=== PATIENT | female | born 1940 | race Caucasian/White ===

== ENCOUNTER 2017-01-30 01:11 | Emergency (ER) | payer MEDICARE, BC ==
[~2017-01-30] VITALS: Ht 165.1 cm; Wt 67.1 kg
[~2017-01-30 01:11] MED LIST: ACET500T68 PO; ASPI-630 PO; CIPR500T PO; METR500T PO; MULT-658 PO; Metoprolol PO; [UNRECOGNIZED DRUG - OTHER] PO
[2017-01-30] MEDS ORDERED: fentaNYL PF VIAL 100 MCG/2 ML VIAL IV PRN (01:45)
[2017-01-30 02:04] LABS: BASO # 0.1 x10^3/uL (0.0-0.2); BASO % 1 % (0-3); EOS % 1 % (0-3); HEMATOCRIT 34.1 % (36.0-47.0); HEMOGLOBIN 11.4 g/dL (12.0-15.5); LYMPH # 3.3 x10^3/uL (1.0-4.8); LYMPH % 22 % (24-48); MEAN CORPUSCULAR HEMOGLOBIN 31 pg (25-35); MEAN CORPUSCULAR HGB CONC 33 g/dL (31-37); MEAN CORPUSCULAR VOLUME 92 fL (79-100); MONO % 6 % (0-9); NEUT % 70 % (31-73); PLATELET COUNT 300 x10^3/uL (140-400); RED BLOOD COUNT 3.73 x10^6/uL (3.50-5.40); RED CELL DISTRIBUTION WIDTH 12.7 % (11.5-14.5); WHITE BLOOD COUNT 14.9 x10^3/uL (4.0-11.0)
[2017-01-30 02:12] LABS: CALCIUM 9.6 mg/dL (8.5-10.1); CREATININE 1.4 mg/dL (0.6-1.0); GFR 36.4
[2017-01-30 02:18] LABS: ALBUMIN 3.6 g/dL (3.4-5.0); DIRECT BILIRUBIN 0.1 mg/dL (0.0-0.2); TOTAL BILIRUBIN 0.3 mg/dL (0.2-1.0); TOTAL PROTEIN 8.1 g/dL (6.4-8.2)
--- NOTE | 2017-01-30 02:32 | PHYS DOC ---
Past Medical History Past Medical History: Other Additional Past Medical Histor: mitral valve prolapse Past Surgical History: Other Additional Past Surgical Histo: BILAT EYE CYST Alcohol Use: None Drug Use: None Adult General Chief Complaint Chief Complaint: ABDOMINAL PAIN HPI HPI Patient is a 76 year old female who presents with bilateral lower abdominal pain gradually worsening over the past 2 days, constant, achy. States her symptoms are exactly like prior episode of diverticulitis. She denies fever or chills, nausea or vomiting, dysuria, hematuria, diarrhea, constipation, back pain. Denies pain with eating, dark or bloody stools. Review of Systems Review of Systems Constitutional: Denies fever or chills [] Eyes: Denies change in visual acuity, redness, or eye pain [] HENT: Denies nasal congestion or sore throat [] Respiratory: Denies cough or shortness of breath [] Cardiovascular: No additional information not addressed in HPI [] GI: Denies nausea, vomiting, bloody stools or diarrhea [] : Denies dysuria or hematuria [] Musculoskeletal: Denies back pain or joint pain [] Integument: Denies rash or skin lesions [] Neurologic: Denies headache, focal weakness or sensory changes [] Endocrine: Denies polyuria or polydipsia [] Current Medications Current Medications Current Medications Medications (Trade) Dose Ordered Sig/Ella Start Time Stop Time Status Last Admin Dose Admin Fentanyl Citrate (Fentanyl 2ml Vial) 25 mcg PRN Q15MIN PRN 01/30/17 01:45 01/30/17 04:07 DC Allergies Allergies Allergies Coded Allergies Type Severity Reaction Last Updated Verified No Known Drug Allergies 02/29/16 No Physical Exam Physical Exam Constitutional: Well developed, well nourished, no acute distress, non-toxic appearance. [] HENT: Normocephalic, atraumatic, bilateral external ears normal, oropharynx moist, nose normal. [] Eyes: PERRLA, EOMI. [] Neck: Normal range of motion, supple. [] Cardiovascular:Heart rate regular rhythm [] Lungs & Thorax: Bilateral breath sounds clear to auscultation [] Abdomen: Bowel sounds normal, soft, has mild bilateral lower abdominal tenderness, no guarding or rebound. [] Skin: Warm, dry, no erythema, no rash. [] Back: No tenderness, no CVA tenderness. [] Extremities: No tenderness, ROM intact, no edema. [] Neurologic: Alert and oriented X 3, normal motor function, normal sensory function, no focal deficits noted. [] Psychologic: Affect normal, judgement normal, mood normal. [] Current Patient Data Vital Signs Vital Signs Date Time Temp Pulse Resp B/P (MAP) Pulse Ox O2 Delivery O2 Flow Rate FiO2 01/30/17 04:04 87 20 142/63 (89) 98 01/30/17 03:12 Room Air 01/30/17 01:25 98.0 98.0 Lab Values Laboratory Tests Test 01/30/17 01:55 01/30/17 03:09 White Blood Count 14.9 x10^3/uL (4.0-11.0) H Red Blood Count 3.73 x10^6/uL (3.50-5.40) Hemoglobin 11.4 g/dL (12.0-15.5) L Hematocrit 34.1 % (36.0-47.0) L Mean Corpuscular Volume 92 fL (79-100) Mean Corpuscular Hemoglobin 31 pg (25-35) Mean Corpuscular Hemoglobin Concent 33 g/dL (31-37) Red Cell Distribution Width 12.7 % (11.5-14.5) Platelet Count 300 x10^3/uL (140-400) Neutrophils (%) (Auto) 70 % (31-73) Lymphocytes (%) (Auto) 22 % (24-48) L Monocytes (%) (Auto) 6 % (0-9) Eosinophils (%) (Auto) 1 % (0-3) Basophils (%) (Auto) 1 % (0-3) Neutrophils # (Auto) 10.4 x10^3uL (1.8-7.7) H Lymphocytes # (Auto) 3.3 x10^3/uL (1.0-4.8) Monocytes # (Auto) 0.9 x10^3/uL (0.0-1.1) Eosinophils # (Auto) 0.1 x10^3/uL (0.0-0.7) Basophils # (Auto) 0.1 x10^3/uL (0.0-0.2) Sodium Level 136 mmol/L (136-145) Potassium Level 4.0 mmol/L (3.5-5.1) Chloride Level 99 mmol/L (98-107) Carbon Dioxide Level 27 mmol/L (21-32) Anion Gap 10 (6-14) Blood Urea Nitrogen 27 mg/dL (7-20) H Creatinine 1.4 mg/dL (0.6-1.0) H Estimated GFR (Cockcroft-Gault) 36.4 Glucose Level 114 mg/dL (70-99) H Calcium Level 9.6 mg/dL (8.5-10.1) Total Bilirubin 0.3 mg/dL (0.2-1.0) Direct Bilirubin 0.1 mg/dL (0.0-0.2) Aspartate Amino Transferase (AST) 17 U/L (15-37) Alanine Aminotransferase (ALT) 17 U/L (14-59) Alkaline Phosphatase 63 U/L (46-116) Total Protein 8.1 g/dL (6.4-8.2) Albumin 3.6 g/dL (3.4-5.0) Lipase 247 U/L (73-393) Urine Collection Type Unknown Urine Color Yellow Urine Clarity Clear Urine pH 6.0 Urine Specific [place] <=1.005 Urine Protein Negative mg/dL (NEG-TRACE) Urine Glucose (UA) Negative mg/dL (NEG) Urine Ketones (Stick) Negative mg/dL (NEG) Urine Blood Small (NEG) Urine Nitrite Positive (NEG) Urine Bilirubin Negative (NEG) Urine Urobilinogen Dipstick 0.2 mg/dL (0.2 mg/dL) Urine Leukocyte Esterase Moderate (NEG) Urine RBC 3-5 /HPF (0-2) Urine WBC 11-20 /HPF (0-4) Urine Squamous Epithelial Cells Occ /LPF Urine Bacteria Many /HPF (0-FEW) Laboratory Tests 01/30/17 01:55 Laboratory Tests 01/30/17 01:55 Radiology/Procedures Radiology/Procedures CT abdomen and pelvis without contrast IMPRESSION: Colonic diverticula present with trace soft tissue stranding suggested about the sigmoid colon, may represent very early diverticulitis. Otherwise, no acute interval change seen from previous CT exam. Incidental findings are detailed above Electronically signed by: Amanda Adams MD (01/30/2017 3:15 AM) Course & Med Decision Making Course & Med Decision Making Pertinent Labs and Imaging studies reviewed. (See chart for details) Has leukocytosis and urinary tract infection, but laboratory evaluation is largely unremarkable otherwise. Imaging with early diverticulitis as above. Her symptoms are currently controlled. She is tolerating oral intake. Discussed therapeutic actions. Return precautions given. She understands and agrees with plan. Dave Disclaimer Dave Disclaimer This electronic medical record was generated, in whole or in part, using a voice recognition dictation system. Departure Departure Impression: Primary Impression: Diverticulitis large intestine Additional Impression: Acute cystitis without hematuria Disposition: HOME, SELF-CARE Condition: STABLE Referrals: BLOSSOM CUELLAR MD (PCP) Patient Instructions: Diverticulitis, [id number] Additional Instructions: Take antibiotics as prescribed. Take Tylenol or ibuprofen as needed for moderate pain. Take hydrocodone as needed for severe pain. Do not drink, drive or operate heavy machinery after taking hydrocodone as it may make you sleepy. Follow-up with your primary care doctor. Return for any concerns. Scripts Levofloxacin (LEVOFLOXACIN) 750 Mg Tablet 1 TAB PO DAILY, #10 TAB Prov: Stiven CRAIN MD 01/30/17 Metronidazole (METRONIDAZOLE) 500 Mg Tablet 1 TAB PO TID, #30 TAB Prov: Stiven CRAIN MD 01/30/17 Tramadol Hcl (TRAMADOL HCL) 50 Mg Tablet 1 TAB PO PRN Q6HRS Y for PAIN, #30 TAB Prov: Stiven CRAIN MD 01/30/17 Problem Qualifiers Primary Impression: Diverticulitis large intestine Diverticulitis bleeding: without bleeding Diverticulitis complication: without perforation or abscess Qualified Codes: K57.32 - Diverticulitis of large intestine without perforation or abscess without bleeding Stiven CRAIN MD Jan 30, 2017 02:32
[2017-01-30 03:17] LABS: BILIRUBIN,URINE NEGATIVE (NEG); GLUCOSE,URINE NEGATIVE (NEG); NITRITE,URINE POSITIVE (NEG); PROTEIN,URINE NEGATIVE (NEG-TRACE); UROBILINOGEN,URINE 0.2 mg/dL (0.2 mg/dL)
--- NOTE | 2017-01-30 03:18 | RAD ---
EXAM: Abdomen and pelvis CT without intravenous contrast. HISTORY: Right upper and left lower quadrant abdominal pain for one day. History of diverticulitis. TECHNIQUE: Computed tomographic images of the abdomen and pelvis were obtained without contrast. Multiplanar reformatting was performed. PQRS compliance statement: One or more of the following individualized dose reduction techniques were utilized for this examination: 1. Automated exposure control 2. Adjustment of the mA and/or kV according to patient size 3. Use of iterative reconstruction technique COMPARISON: February 29, 2016. FINDINGS: The lung bases demonstrate no acute finding. Detailed evaluation of the intra-abdominal and pelvic organs and vascular structures is limited secondary to lack of IV contrast. A round, low-density mass is redemonstrated within the left liver, stable from previous exam, most suggestive of a cyst. The spleen, gallbladder, pancreas, adrenal glands and left kidney demonstrate no focal abnormality. A round hypodensity is redemonstrated off the posterior right kidney, similar to the previous exam, suggestive of a cyst. No nephrolithiasis or hydronephrosis is present. The GI tract demonstrates no dilated bowel loops to suggest obstruction. Colonic diverticula are redemonstrated, with trace soft tissue stranding suggested in the region of the sigmoid colon although not significant. No extraluminal free air or fluid collection is seen. Appendix is normal in caliber and air-filled in the right lower quadrant. The urinary bladder is distended with urine, with a focus of air present within the anterior urinary bladder which may be secondary to recent catheterization. The uterus and bilateral adnexa demonstrate no acute interval change. No intra-abdominal or pelvic free fluid, free air or significant lymphadenopathy is seen. Aorta is normal in caliber with atherosclerotic calcifications redemonstrated. Overlying soft tissues and visualized osseous structures demonstrate no acute or suspicious finding. IMPRESSION: Colonic diverticula present with trace soft tissue stranding suggested about the sigmoid colon, may represent very early diverticulitis. Otherwise, no acute interval change seen from previous CT exam. Incidental findings are detailed above Electronically signed by: Amanda Adams MD (01/30/2017 3:15 AM)
[2017-01-30 03:27] LABS: BACTERIA,URINE MANY /HPF (0-FEW); SQUAMOUS EPITHELIAL CELL,UR OCC /LPF
[2017-01-30] MEDS ORDERED: METR500T8 PO (03:30)
[2017-01-30] MEDS ORDERED: LEVO750T5 PO (03:30)
[2017-01-30] MEDS ORDERED: TRAM50TA PO (03:30)
[2017-01-30 04:04] VITALS: BP 142/63
== END 2017-01-30 04:07 | disposition home or self-care (01) ==
LOC: ER 01:11
DX: K57.32 Diverticulitis of large intestine without perforation or abscess without bleeding (principal); N30.00 Acute cystitis without hematuria; I34.1 Nonrheumatic mitral (valve) prolapse; D72.829 Elevated white blood cell count, unspecified
CPT/HCPCS: 36415; 74176; 80048; 80076; 81001; 83690; 85027; 87086; 87186; 99285-25

== ENCOUNTER 2017-06-19 12:50 | Inpatient (IN) | payer MEDICARE, BC ==
[~2017-06-19] VITALS: Ht 165.1 cm; Wt 61.0 kg
[~2017-06-19 12:50] MED LIST changes: +LEVO750T5 PO; +METR500T8 PO; +TRAM50TA PO
[2017-06-19] MEDS ORDERED: ONDANSETRON PF 4 MG/2 ML VIAL. IV ONE (13:15)
[2017-06-19] MEDS ORDERED: IV NORMAL SALINE 1000ML BAG 1,000 ML IV ONE ×2 (13:15→15:00)
--- NOTE | 2017-06-19 13:19 | PHYS DOC ---
Past Medical History Past Medical History: Other Additional Past Medical Histor: mitral valve prolapse Past Surgical History: Other Additional Past Surgical Histo: BILAT EYE CYST Alcohol Use: None Drug Use: None Adult General Chief Complaint Chief Complaint: ABDOMINAL PAIN HPI HPI Patient is a 76 year old F who presents with abdominal pain for the past 3 days. Patient states she's having worsening lower abdominal pain with no associated nausea/vomiting/diarrhea. Patient denies any dysuria. Patient denies any fevers. Patient states she's had decreased appetite over the past couple days. Patient had no previous abdominal surgeries. Patient has no other complaints. Review of Systems Review of Systems GEN: Denies fevers, chills, sweats HEENT: Denies blurred vision, sore throat CV: Denies chest pain RESP: Denies shortness of air, cough GI: Abdominal pain Denies n/v/d NEURO: Denies confusion, dizziness MSK: Denies weakness, joint pain/swelling All other systems were reviewed and found to be within normal limits, except as documented in this note. Current Medications Current Medications Current Medications Medications (Trade) Dose Ordered Sig/Ella Start Time Stop Time Status Last Admin Dose Admin Metronidazole 100 ml @ 100 mls/hr Q12HR 06/19/17 14:30 06/19/17 14:49 100 MLS/HR Morphine Sulfate 4 mg PRN Q2HR PRN 06/19/17 15:00 06/20/17 14:59 Ondansetron HCl (Zofran) 4 mg PRN Q8HRS PRN 06/19/17 15:00 06/20/17 14:59 Piperacillin Sod/ Tazobactam Sod (Zosyn Per Pharmacy) 1 each PRN DAILY PRN 06/19/17 14:30 Piperacillin Sod/ Tazobactam Sod (Zosyn) 3.375 gm 1X ONCE 06/19/17 15:00 06/19/17 15:01 DC 06/19/17 14:49 3.375 GM Sodium Chloride 1,000 ml @ 125 mls/hr Q8H 06/19/17 14:58 06/20/17 14:57 Allergies Allergies Allergies Coded Allergies Type Severity Reaction Last Updated Verified No Known Drug Allergies 02/29/16 No Physical Exam Physical Exam GEN.: Moderate distress. Alert and oriented. HEENT: Head is normocephalic, atraumatic NECK: Supple. LUNGS: CTAB. HEART: RRR, S1, S2 present. Peripheral pulses intact ABDOMEN: Soft, right lower quadrant and left lower quadrant tenderness palpation with rebound tenderness, no abdominal distention, hypoactive bowel sounds. EXTREMITIES: Without any cyanosis. NEUROLOGIC: Normal speech, normal tone PSYCHIATRIC: Normal affect, normal mood. SKIN: No ulcerations Current Patient Data Vital Signs Vital Signs Date Time Temp Pulse Resp B/P (MAP) Pulse Ox O2 Delivery O2 Flow Rate FiO2 06/19/17 13:00 98.5 117 20 158/67 (97) 93 Room Air 98.5 Lab Values Laboratory Tests Test 06/19/17 13:10 06/19/17 13:25 06/19/17 13:50 Urine Collection Type Unknown Urine Color Yellow Urine Clarity Cloudy Urine pH 7.0 Urine Specific [place] 1.020 Urine Protein 100 mg/dL (NEG-TRACE) Urine Glucose (UA) Negative mg/dL (NEG) Urine Ketones (Stick) Negative mg/dL (NEG) Urine Blood Moderate (NEG) Urine Nitrite Negative (NEG) Urine Bilirubin Small (NEG) Urine Urobilinogen Dipstick 1.0 mg/dL (0.2 mg/dL) Urine Leukocyte Esterase Large (NEG) Urine RBC Fobs /HPF (0-2) Urine WBC Tntc /HPF (0-4) Urine Transitional Epithelial Cells Mod /LPF Urine Bacteria Many /HPF (0-FEW) Urine Hyaline Casts Few /HPF Urine Granular Casts Moderate /HPF White Blood Count 28.4 x10^3/uL (4.0-11.0) H Red Blood Count 3.49 x10^6/uL (3.50-5.40) L Hemoglobin 10.5 g/dL (12.0-15.5) L Hematocrit 31.9 % (36.0-47.0) L Mean Corpuscular Volume 91 fL (79-100) Mean Corpuscular Hemoglobin 30 pg (25-35) Mean Corpuscular Hemoglobin Concent 33 g/dL (31-37) Red Cell Distribution Width 13.2 % (11.5-14.5) Platelet Count 386 x10^3/uL (140-400) Neutrophils (%) (Auto) 91 % (31-73) H Lymphocytes (%) (Auto) 3 % (24-48) L Monocytes (%) (Auto) 5 % (0-9) Eosinophils (%) (Auto) 0 % (0-3) Basophils (%) (Auto) 0 % (0-3) Neutrophils # (Auto) 26.0 x10^3uL (1.8-7.7) H Lymphocytes # (Auto) 1.0 x10^3/uL (1.0-4.8) Monocytes # (Auto) 1.4 x10^3/uL (0.0-1.1) H Eosinophils # (Auto) 0.0 x10^3/uL (0.0-0.7) Basophils # (Auto) 0.1 x10^3/uL (0.0-0.2) Segmented Neutrophils % 79 % (35-66) H Band Neutrophils % 15 % (0-9) H Lymphocytes % 1 % (24-48) L Monocytes % 4 % (0-10) Eosinophils % 1 % (0-5) Toxic Vacuolation Slight Platelet Estimate Adequate (ADEQUATE) Giant Platelets Few Sodium Level 132 mmol/L (136-145) L Potassium Level 3.3 mmol/L (3.5-5.1) L Chloride Level 96 mmol/L (98-107) L Carbon Dioxide Level 23 mmol/L (21-32) Anion Gap 13 (6-14) Blood Urea Nitrogen 33 mg/dL (7-20) H Creatinine 1.8 mg/dL (0.6-1.0) H Estimated GFR (Cockcroft-Gault) 27.2 BUN/Creatinine Ratio 18 (6-20) Glucose Level 166 mg/dL (70-99) H Calcium Level 8.7 mg/dL (8.5-10.1) Total Bilirubin 0.6 mg/dL (0.2-1.0) Aspartate Amino Transferase (AST) 20 U/L (15-37) Alanine Aminotransferase (ALT) 19 U/L (14-59) Alkaline Phosphatase 67 U/L (46-116) Total Protein 8.0 g/dL (6.4-8.2) Albumin 2.4 g/dL (3.4-5.0) L Albumin/Globulin Ratio 0.4 (1.0-1.7) L Lipase 97 U/L (73-393) Lactic Acid Level 0.7 mmol/L (0.4-2.0) Laboratory Tests 06/19/17 13:25 Laboratory Tests 06/19/17 13:25 EKG EKG [] Radiology/Procedures Radiology/Procedures CT of the abdomen pelvis: IMPRESSION: 1. 11.8 cm loculated fluid collection containing gas and possible fecal material. This is not well is separable from the adjacent sigmoid colon, uterus or right ovary and is likely due to an abscess or contained perforation. 2. Gas within the urinary bladder. This may be due to recent catheterization or a colovesical fistula. 3. Hepatic and right renal cysts. 4. Extensive colonic diverticulosis.[] Course & Med Decision Making Course & Med Decision Making Pertinent Labs and Imaging studies reviewed. (See chart for details) ED course: Patient was seen and examined emergency room abdominal workup was ordered along with a CT scan abdomen and pelvis without contrast 1440: Updated patient on CT findings and plan to admit for acute diverticulitis with microperforation and abscess formation 1448: Discussed CC/HP/PMH with Dr. Oden and recommends admit to medicine, nothing by mouth and antibiotics 1520: Discussed CC/HP/PMH with Dr. Olsen and recommends admit [] [] Dragon Disclaimer Dragon Disclaimer This electronic medical record was generated, in whole or in part, using a voice recognition dictation system. Departure Departure Impression: Primary Impression: Diverticulitis large intestine Additional Impression: Diverticulitis of both large and small intestine with abscess without bleeding Disposition: 09 ADMITTED INPATIENT Admitting Physician: Lamont Olsen Condition: STABLE Referrals: Zandra CUELLAR MD (PCP) Problem Qualifiers DUNCAN NICKERSON DO Jun 19, 2017 13:19
[2017-06-19 13:36] LABS: BASO # 0.1 x10^3/uL (0.0-0.2); BASO % 0 % (0-3); EOS % 0 % (0-3); HEMATOCRIT 31.9 % (36.0-47.0); HEMOGLOBIN 10.5 g/dL (12.0-15.5); LYMPH % 3 % (24-48); MEAN CORPUSCULAR HEMOGLOBIN 30 pg (25-35); MEAN CORPUSCULAR HGB CONC 33 g/dL (31-37); MEAN CORPUSCULAR VOLUME 91 fL (79-100); MONO % 5 % (0-9); NEUT % 91 % (31-73); PLATELET COUNT 386 x10^3/uL (140-400); RED BLOOD COUNT 3.49 x10^6/uL (3.50-5.40); RED CELL DISTRIBUTION WIDTH 13.2 % (11.5-14.5); WHITE BLOOD COUNT 28.4 x10^3/uL (4.0-11.0)
[2017-06-19 13:36] LABS: BILIRUBIN,URINE SMALL (NEG); GLUCOSE,URINE NEGATIVE (NEG); NITRITE,URINE NEGATIVE (NEG); PROTEIN,URINE 100 mg/dL (NEG-TRACE)
[2017-06-19 13:48] LABS: CALCIUM 8.7 mg/dL (8.5-10.1); CREATININE 1.8 mg/dL (0.6-1.0); GFR 27.2; POTASSIUM 3.3 mmol/L (3.5-5.1)
[2017-06-19 13:53] LABS: ALBUMIN 2.4 g/dL (3.4-5.0); ALBUMIN/GLOBULIN RATIO 0.4 (1.0-1.7); TOTAL BILIRUBIN 0.6 mg/dL (0.2-1.0)
[2017-06-19 14:03] LABS: BACTERIA,URINE MANY /HPF (0-FEW); RBC,URINE FOBS /HPF (0-2); WBC,URINE TNTC /HPF (0-4)
[2017-06-19] MEDS ORDERED: PIP/TAZO PER PHARMACY MC PRN (14:30)
--- NOTE | 2017-06-19 14:33 | RAD ---
EXAM: Abdomen and pelvis CT without intravenous contrast. HISTORY: Pain. TECHNIQUE: Computed tomographic images of the abdomen and pelvis were obtained without contrast. Multiplanar reformatting was performed. COMPARISON: 01/30/2017. FINDINGS: Evaluation of the lower thorax demonstrates a calcified granuloma within the right lower lobe. There is no infiltrate, effusion or suspicious pulmonary nodule. There are small distal paraesophageal lymph nodes, within physiologic limits. There is a 4.1 cm cyst within the left hepatic lobe. There are a few hepatic granulomas. The gallbladder, pancreas, spleen and adrenal glands are unremarkable. There is a 2.9 cm right renal cyst. There is gas within the urinary bladder. The appendix is unremarkable. There is distal predominant colonic diverticulosis. There is a loculated fluid collection containing gas and possibly fecal material within the posterior cul-de-sac, measuring 11.8 cm in maximum dimension. The adjacent sigmoid colon, uterus and right ovary are not clearly separable from this collection. No pathologically enlarged retroperitoneal or mesenteric lymph node is seen. There are degenerative changes throughout the spine. There is a transitional lumbosacral segment. IMPRESSION: 1. 11.8 cm loculated fluid collection containing gas and possible fecal material. This is not well is separable from the adjacent sigmoid colon, uterus or right ovary and is likely due to an abscess or contained perforation. 2. Gas within the urinary bladder. This may be due to recent catheterization or a colovesical fistula. 3. Hepatic and right renal cysts. 4. Extensive colonic diverticulosis. PQRS Compliance Statement: One or more of the following individualized dose reduction techniques were utilized for this examination: 1. Automated exposure control 2. Adjustment of the mA and/or kV according to patient size 3. Use of iterative reconstruction technique
[2017-06-19 14:46] LABS: % EOS 1 % (0-5); PLT ESTIMATE ADEQUATE (ADEQUATE); TOXIC VACUOLATION SLIGHT
[2017-06-19] MEDS ORDERED: PIPERACILLIN/TAZO IV Push 3.375 GM VIAL. IVP ONE (15:00)
[2017-06-19] MEDS ORDERED: MORPHINE SULFATE 4 MG/ML DISP.SYRIN. IV PRN (15:00)
[2017-06-19] MEDS ORDERED: ONDANSETRON PF 4 MG/2 ML VIAL. IV PRN (15:00)
[2017-06-19] MEDS: IV NORMAL SALINE 1000ML BAG 1,000 ML IV SCH (18:23)
--- NOTE | 2017-06-19 18:45 | PDOC2 ---
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 She has a known hx of diverticular disease. She presents with progressive lower abdominal pain on the right, unlike her pain in the past which was in the LLQ. She denies nausea or vomiting. Past Medical History Cardiovascular: HTN, Other (mitral valve prolapse) Pulmonary: No pertinent hx GI: Diverticulosis Past Surgical History Past Surgical History: No pertinent history Family History Family History: Other Social History ALCOHOL: none Drugs: None Lives: with Family Current Problem List Problem List Problems Medical Problems: (1) Diverticulitis large intestine Status: Acute (2) Diverticulitis of both large and small intestine with abscess without bleeding Status: Acute Current Medications Current Medications Current Medications Ondansetron HCl (Zofran) 4 mg 1X ONCE IV Last administered on 06/19/17 13:43 ; Start 06/19/17 at 13:15; Stop 06/19/17 at 13:17; Status DC Sodium Chloride 1,000 ml @ 1,000 mls/hr 1X ONCE IV Last administered on 06/19 13:43; Start 06/19/17 at 13:15; Stop 06/19/17 at 14:14; Status DC Piperacillin Sod/ Tazobactam Sod (Zosyn Per Pharmacy) 1 each PRN DAILY PRN MC SEE COMMENTS; Start 06/19/17 at 14:30 Metronidazole 100 ml @ 100 mls/hr Q12HR IV Last administered on 06/19/17 14: 49; Start 06/19/17 at 14:30 Piperacillin Sod/ Tazobactam Sod (Zosyn) 3.375 gm 1X ONCE IVP Last administered on 06/19/17 14:49; Start 06/19/17 at 15:00; Stop 06/19/17 at 15 :01; Status DC Sodium Chloride 1,000 ml @ 1,000 mls/hr 1X ONCE IV Last administered on 06/19 15:00; Start 06/19/17 at 15:00; Stop 06/19/17 at 15:59; Status DC Ondansetron HCl (Zofran) 4 mg PRN Q8HRS PRN IV NAUSEA/VOMITING; Start at 15:00; Stop 06/20/17 at 14:59 Morphine Sulfate 4 mg PRN Q2HR PRN IV PAIN; Start 06/19/17 at 15:00; Stop at 14:59 Sodium Chloride 1,000 ml @ 125 mls/hr Q8H IV Last administered on 06/19/17t 18:23; Start 06/19/17 at 14:58; Stop 06/20/17 at 14:57 Piperacillin Sod/ Tazobactam Sod (Zosyn) 2.25 gm Q6HRS IVP ; Start 06/19/17 at 22:00 Active Scripts Active Levofloxacin 750 Mg Tablet 1 Tab PO DAILY Metronidazole 500 Mg Tablet 1 Tab PO TID Tramadol Hcl 50 Mg Tablet 1 Tab PO PRN Q6HRS PRN Flagyl (Metronidazole) 500 Mg Tablet 1 Tab PO BID Ciprofloxacin Hcl 500 Mg Tablet 1 Tab PO BID Reported Acetaminophen 500 Mg Tablet 1 Tab PO PRN PRN [Metoprolol] 50 Mg PO DAILY [[place] 210] 1 Tab PO HS PRN Centrum Silver Tablet (Multivits-Min/Fa/Lycopene/Lut) 1 Each Tablet 1 Each PO DAILY Aspirin 81 Mg Tab.chew 1 Tab PO QODAY Allergies Allergies: Coded Allergies: No Known Drug Allergies (Unverified , 02/29/16) ROS Gastrointestinal: Yes Abdominal Pain Physical Exam General: Alert, Oriented X3, No acute distress HEENT: Atraumatic Lungs: Normal air movement Heart: Other (increased rate) Abdomen: Soft, Other (TTP in the RLQ) Skin: No rashes Neuro: Normal speech Psych/Mental Status: Mental status NL MUSCULOSKELETAL: No deformity Vitals VITALS Vital Signs Date Time Temp Pulse Resp B/P (MAP) Pulse Ox O2 Delivery O2 Flow Rate FiO2 06/19/17 15:41 100 16 144/66 (92) 96 06/19/17 13:09 Room Air 06/19/17 13:00 98.5 98.5 Labs Labs Laboratory Tests Test 06/19/17 13:10 06/19/17 13:25 06/19/17 13:50 06/19/17 15:15 Urine Collection Type Unknown Urine Color Yellow Urine Clarity Cloudy Urine pH 7.0 Urine Specific [place] 1.020 Urine Protein 100 mg/dL (NEG-TRACE) Urine Glucose (UA) Negative mg/dL (NEG) Urine Ketones (Stick) Negative mg/dL (NEG) Urine Blood Moderate (NEG) Urine Nitrite Negative (NEG) Urine Bilirubin Small (NEG) Urine Urobilinogen Dipstick 1.0 mg/dL (0.2 mg/dL) Urine Leukocyte Esterase Large (NEG) Urine RBC Fobs /HPF (0-2) Urine WBC Tntc /HPF (0-4) Urine Transitional Epithelial Cells Mod /LPF Urine Bacteria Many /HPF (0-FEW) Urine Hyaline Casts Few /HPF Urine Granular Casts Moderate /HPF White Blood Count 28.4 x10^3/uL (4.0-11.0) Red Blood Count 3.49 x10^6/uL (3.50-5.40) Hemoglobin 10.5 g/dL (12.0-15.5) Hematocrit 31.9 % (36.0-47.0) Mean Corpuscular Volume 91 fL (79-100) Mean Corpuscular Hemoglobin 30 pg (25-35) Mean Corpuscular Hemoglobin Concent 33 g/dL (31-37) Red Cell Distribution Width 13.2 % (11.5-14.5) Platelet Count 386 x10^3/uL (140-400) Neutrophils (%) (Auto) 91 % (31-73) Lymphocytes (%) (Auto) 3 % (24-48) Monocytes (%) (Auto) 5 % (0-9) Eosinophils (%) (Auto) 0 % (0-3) Basophils (%) (Auto) 0 % (0-3) Neutrophils # (Auto) 26.0 x10^3uL (1.8-7.7) Lymphocytes # (Auto) 1.0 x10^3/uL (1.0-4.8) Monocytes # (Auto) 1.4 x10^3/uL (0.0-1.1) Eosinophils # (Auto) 0.0 x10^3/uL (0.0-0.7) Basophils # (Auto) 0.1 x10^3/uL (0.0-0.2) Segmented Neutrophils % 79 % (35-66) Band Neutrophils % 15 % (0-9) Lymphocytes % 1 % (24-48) Monocytes % 4 % (0-10) Eosinophils % 1 % (0-5) Toxic Vacuolation Slight Platelet Estimate Adequate (ADEQUATE) Giant Platelets Few Sodium Level 132 mmol/L (136-145) Potassium Level 3.3 mmol/L (3.5-5.1) Chloride Level 96 mmol/L (98-107) Carbon Dioxide Level 23 mmol/L (21-32) Anion Gap 13 (6-14) Blood Urea Nitrogen 33 mg/dL (7-20) Creatinine 1.8 mg/dL (0.6-1.0) Estimated GFR (Cockcroft-Gault) 27.2 BUN/Creatinine Ratio 18 (6-20) Glucose Level 166 mg/dL (70-99) Calcium Level 8.7 mg/dL (8.5-10.1) Total Bilirubin 0.6 mg/dL (0.2-1.0) Aspartate Amino Transf (AST/SGOT) 20 U/L (15-37) Alanine Aminotransferase (ALT/SGPT) 19 U/L (14-59) Alkaline Phosphatase 67 U/L (46-116) Total Protein 8.0 g/dL (6.4-8.2) Albumin 2.4 g/dL (3.4-5.0) Albumin/Globulin Ratio 0.4 (1.0-1.7) Lipase 97 U/L (73-393) Lactic Acid Level 0.7 mmol/L (0.4-2.0) 1.0 mmol/L (0.4-2.0) Test 06/19/17 16:10 Lactic Acid Level 1.2 mmol/L (0.4-2.0) Laboratory Tests Test 06/19/17 13:10 06/19/17 13:25 06/19/17 13:50 06/19/17 15:15 Urine Collection Type Unknown Urine Color Yellow Urine Clarity Cloudy Urine pH 7.0 Urine Specific [place] 1.020 Urine Protein 100 mg/dL (NEG-TRACE) Urine Glucose (UA) Negative mg/dL (NEG) Urine Ketones (Stick) Negative mg/dL (NEG) Urine Blood Moderate (NEG) Urine Nitrite Negative (NEG) Urine Bilirubin Small (NEG) Urine Urobilinogen Dipstick 1.0 mg/dL (0.2 mg/dL) Urine Leukocyte Esterase Large (NEG) Urine RBC Fobs /HPF (0-2) Urine WBC Tntc /HPF (0-4) Urine Transitional Epithelial Cells Mod /LPF Urine Bacteria Many /HPF (0-FEW) Urine Hyaline Casts Few /HPF Urine Granular Casts Moderate /HPF White Blood Count 28.4 x10^3/uL (4.0-11.0) Red Blood Count 3.49 x10^6/uL (3.50-5.40) Hemoglobin 10.5 g/dL (12.0-15.5) Hematocrit 31.9 % (36.0-47.0) Mean Corpuscular Volume 91 fL (79-100) Mean Corpuscular Hemoglobin 30 pg (25-35) Mean Corpuscular Hemoglobin Concent 33 g/dL (31-37) Red Cell Distribution Width 13.2 % (11.5-14.5) Platelet Count 386 x10^3/uL (140-400) Neutrophils (%) (Auto) 91 % (31-73) Lymphocytes (%) (Auto) 3 % (24-48) Monocytes (%) (Auto) 5 % (0-9) Eosinophils (%) (Auto) 0 % (0-3) Basophils (%) (Auto) 0 % (0-3) Neutrophils # (Auto) 26.0 x10^3uL (1.8-7.7) Lymphocytes # (Auto) 1.0 x10^3/uL (1.0-4.8) Monocytes # (Auto) 1.4 x10^3/uL (0.0-1.1) Eosinophils # (Auto) 0.0 x10^3/uL (0.0-0.7) Basophils # (Auto) 0.1 x10^3/uL (0.0-0.2) Segmented Neutrophils % 79 % (35-66) Band Neutrophils % 15 % (0-9) Lymphocytes % 1 % (24-48) Monocytes % 4 % (0-10) Eosinophils % 1 % (0-5) Toxic Vacuolation Slight Platelet Estimate Adequate (ADEQUATE) Giant Platelets Few Sodium Level 132 mmol/L (136-145) Potassium Level 3.3 mmol/L (3.5-5.1) Chloride Level 96 mmol/L (98-107) Carbon Dioxide Level 23 mmol/L (21-32) Anion Gap 13 (6-14) Blood Urea Nitrogen 33 mg/dL (7-20) Creatinine 1.8 mg/dL (0.6-1.0) Estimated GFR (Cockcroft-Gault) 27.2 BUN/Creatinine Ratio 18 (6-20) Glucose Level 166 mg/dL (70-99) Calcium Level 8.7 mg/dL (8.5-10.1) Total Bilirubin 0.6 mg/dL (0.2-1.0) Aspartate Amino Transf (AST/SGOT) 20 U/L (15-37) Alanine Aminotransferase (ALT/SGPT) 19 U/L (14-59) Alkaline Phosphatase 67 U/L (46-116) Total Protein 8.0 g/dL (6.4-8.2) Albumin 2.4 g/dL (3.4-5.0) Albumin/Globulin Ratio 0.4 (1.0-1.7) Lipase 97 U/L (73-393) Lactic Acid Level 0.7 mmol/L (0.4-2.0) 1.0 mmol/L (0.4-2.0) Test 06/19/17 16:10 Lactic Acid Level 1.2 mmol/L (0.4-2.0) Images Images CT scan done earlier is reviewed Assessment/Plan Assessment/Plan perforated diverticulitis with large paracolonic fluid collection I discussed options with Ms Iglesias including exploration this evening with the understanding that this would most likely result in a temporary colostomy vs IR drainage tomorrow. I told her I felt proceeding with surgery was the better option but she prefers to wait for now. As such will consult IR for possible drainage. Will follow with you Thanks for consult SOPHIE FRYE MD Jun 19, 2017 18:45
[2017-06-19 19:00] VITALS: BP 137/75
[2017-06-19] MEDS ORDERED: PERP1TAB3 PO (22:53)
[2017-06-19] MEDS: PIPERACILLIN/TAZO IV Push 2.25 GM VIAL. IVP SCH (22:58)
[2017-06-19 23:00] VITALS: BP_SYST 129; BP_SYST 152; BP_DIAS 54; BP_DIAS 96
[2017-06-20] VITALS (11 sets, daily range): BP systolic 114–159; BP diastolic 52–71
[2017-06-20] MEDS: IV NORMAL SALINE 1000ML BAG 1,000 ML IV SCH ×2 (00:54→10:48)
[2017-06-20 05:25] LABS: BASO % 0 % (0-3); EOS % 0 % (0-3); HEMATOCRIT 28.3 % (36.0-47.0); HEMOGLOBIN 9.2 g/dL (12.0-15.5); LYMPH # 1.4 x10^3/uL (1.0-4.8); LYMPH % 6 % (24-48); MEAN CORPUSCULAR HEMOGLOBIN 30 pg (25-35); MEAN CORPUSCULAR HGB CONC 32 g/dL (31-37); MEAN CORPUSCULAR VOLUME 92 fL (79-100); MONO % 4 % (0-9); NEUT % 90 % (31-73); PLATELET COUNT 349 x10^3/uL (140-400); RED BLOOD COUNT 3.06 x10^6/uL (3.50-5.40); RED CELL DISTRIBUTION WIDTH 13.5 % (11.5-14.5); WHITE BLOOD COUNT 25.4 x10^3/uL (4.0-11.0)
[2017-06-20 05:55] LABS: CALCIUM 7.8 mg/dL (8.5-10.1); CREATININE 1.4 mg/dL (0.6-1.0); GFR 36.4
[2017-06-20 05:56] LABS: POTASSIUM 3.4 mmol/L (3.5-5.1)
[2017-06-20] MEDS: PIPERACILLIN/TAZO IV Push 2.25 GM VIAL. IVP SCH ×3 (06:24→17:53)
--- NOTE | 2017-06-20 09:07 | PDOC ---
Provider Note Provider Note H&P dictated #[id number] Zandra CUELLAR MD Jun 20, 2017 09:07
[2017-06-20 09:47] LABS: % SAT IRON 7 % (15-34); IRON,SERUM 10 ug/dL (50-170)
--- NOTE | 2017-06-20 10:03 | HP ---
ADMIT DATE: 06/19/2017 ADMISSION DIAGNOSES: Perforated diverticulum with abscess and urinary tract infection and systemic inflammatory response syndrome. HISTORY OF PRESENT ILLNESS: This is a 76-year-old white female who started developing abdominal pain fairly acutely on . She has been having some irritable bowel symptoms with intermittent diarrhea and constipation, but no real change in her bowel habits. She is not known to have significant valve disease, but she has never had a colonoscopy or other screening tests done. Pain got so severe on Tuesday morning that her convinced her to come to the Emergency Room. Her son brought her in. She was found to have a white count of nearly 30,000 and imaging consistent with diverticular abscess. She was admitted on IV antibiotics, IV fluids and surgical consultation, Dr. Oden came in and saw her, but she declined surgery, although he strongly recommended it. He has asked Interventional Radiology to try to drain her abscess since she refused surgery. This morning, she is awake and alert, not in significant amount of distress. She has been afebrile overnight, and her white count is improved. PAST MEDICAL HISTORY: Significant for mitral valve prolapse, hypertension, diverticulosis, chronic anxiety. PAST SURGICAL HISTORY: Includes cataract extraction. ALLERGIES: She has no known drug allergies. HOME MEDICATIONS: Include acetaminophen 500 mg at bedtime, aspirin 81 daily, multivitamin daily, perphenazine/amitriptyline 2/10 mg 1 at bedtime, tramadol 50 mg q.6 hours p.r.n., metoprolol 50 mg daily. FAMILY HISTORY: Noncontributory. SOCIAL HISTORY: She takes care of her debilitated . She does not smoke or drink. REVIEW OF SYSTEMS: HEENT: Negative. PULMONARY: Negative. CARDIAC: Positive for tachycardia since she has not gotten her metoprolol yesterday or today. No chest pain. GASTROINTESTINAL: As above. GENITOURINARY: As above. MUSCULOSKELETAL: Some generalized arthritic aches and pains, but she is up and about and active. PSYCHIATRIC: Anxiety and insomnia. NEUROLOGIC: No focal complaints. PHYSICAL EXAMINATION: GENERAL: She is alert and oriented, does not appear to be in distress. VITAL SIGNS: Her temperature overnight was 99.7. Heart rate reached 116, but that is likely from her mitral valve prolapse. Blood pressures have been as high as 141/65, as low as 114/68, room air oxygen saturations are normal. HEENT: Unremarkable except for mouth is dry. NECK: Supple. HEART: Tachycardic. LUNGS: Showing normal respiratory effort. ABDOMEN: Right lower quadrant tenderness without rebound or peritoneal signs. EXTREMITIES: Without clubbing, cyanosis or edema. LABORATORY DATA: White count has dropped from 28.4 to 25.4 overnight. Her hemoglobin with hydration has dropped from 10.5-9.2. Sodium is improved from 132-139, her potassium is improved from 3.3-3.4. BUN has dropped from 33-27. Her creatinine has dropped from 1.8-1.4. Liver enzymes are normal. Lipase is normal. Glucose was 166 yesterday, 96 this morning. Lactic acids have all been normal. Urinalysis is yellow and cloudy and showing blood, bile, leukocyte esterase, too numerous to count white cells, many transitional epithelial cells, many bacteria, moderate granular casts. She has had E. coli in her urine as recently as 01/[address] abdomen and pelvis shows 11.8 cm loculated fluid collection containing gas and possible fecal material that is not well from the adjacent sigmoid colon, uterus or right ovary, is likely due to an abscess or contained perforation. There is gas within the urinary bladder suggesting the possibility of a colovesical fistula. There are hepatic and right renal cysts, and there is extensive colonic diverticulosis. Gallbladder, deacon pancreas, spleen and adrenal glands were unremarkable. Small distal paraesophageal lymph nodes are present, and there is a calcified granuloma in the right lower lobe of her lung. ASSESSMENT: 1. Diverticular abscess. 2. Urinary tract infection. 3. Systemic inflammatory response syndrome. 4. Diverticulosis. 5. Acute renal failure. 6. Anemia of unclear etiology. 7. Mitral valve prolapse. 8. Chronic anxiety. PLAN: She is admitted. She is currently on IV antibiotics and appears to be responding. She is being hydrated. Her electrolytes are improving. She has refused surgery. IR to see to hopefully drain her abscess. May need to involve ID also and possibly GI. W Myron CUELLAR MD DR: FRANDY/lacie JOB#: [id number] / [id number]
[2017-06-20 10:28] LABS: VITAMIN-B12 1682 pg/mL (247-911)
[2017-06-20 10:28] LABS: INR 1.3 (0.8-1.1); PROTHROMBIN TIME PATIENT 15.6 SEC (11.7-14.0)
[2017-06-20 10:49] LABS: FOLATE > 24.00 ng/ml (3.2-20.0)
[2017-06-20] MEDS: MULTIVITAMIN with MINERAL TABLET. PO SCH ×2 (10:49→13:59)
[2017-06-20] MEDS: METOPROLOL SUCC 24HR ER 50 MG TAB.ER.24H. PO SCH ×2 (10:49→13:59)
[2017-06-20] MEDS ORDERED: LIDOCAINE 1% / SOD BICARB 8.4% 20 ML VIAL. IJ ONE ×2 (12:44→13:00)
[2017-06-20] MEDS ORDERED: fentaNYL PF VIAL 100 MCG/2 ML VIAL ONE (12:54)
[2017-06-20] MEDS ORDERED: MIDAZOLAM HCL/PF 2 MG/2 ML VIAL. ONE (12:55)
[2017-06-20] MEDS ORDERED: fentaNYL PF VIAL 100 MCG/2 ML VIAL IV ONE (13:00)
[2017-06-20] MEDS ORDERED: MIDAZOLAM HCL/PF 2 MG/2 ML VIAL. IV ONE (13:00)
[2017-06-20] MEDS: traMADol 50 MG TABLET PO PRN (13:59)
--- NOTE | 2017-06-20 15:02 | RAD ---
CT-guided drainage, pelvic abscess. 06/20/2017 Indication: 76-year-old female with large fluid collection in the pelvis likely representing an abscess or contained bowel perforation. Cavity measures 10 cm x 8 cm axially. The risks and benefits of the procedure were discussed the patient. Informed consent was obtained. A timeout procedure was performed. The patient was placed in the prone position. CT imaging redemonstrates a large fluid collection in the pelvis immediately anterior to the rectum posterior to the bladder. A right transgluteal approach was chosen. The area was prepped and draped using sterile barrier technique. 1% lidocaine without epinephrine was administered for local anesthesia. A 17-gauge needle was advanced into the collection under intermittent CT guidance. Through this needle a guidewire was advanced into the collection over which following dilatation a 12 Iranian locking pigtail drain was advanced into the collection. The drains position was confirmed with CT scan. Approximately 300 cc of turbid, somewhat feculent appearing material was aspirated. Repeat imaging demonstrates near total loculation of the previously seen fluid collection. In the right adnexa there is a persistent collection containing gas, possibly stool. This is adjacent to the sigmoid colon could represent large diverticulum, or perhaps be the result perforation as previously described. Distention of left adnexal structures from the fluid collection is uncertain on current exam. Calcification gas is also seen in the left adnexa of uncertain etiology. Gas also noted to be present in the urinary bladder on prior imaging however catheter is seen. Correlate with recent catheterization. Otherwise an enteric fistula cannot be completely excluded. The procedure was performed under conscious sedation including continuous cardiopulmonary monitoring via dedicated sedation nurse. Sedation time: 25 minutes Impression: 1. CT-guided drainage of large pelvic fluid collection as described above. This may represent a contained bowel perforation, or diverticular abscess. 2. A small amount of gas is noted to be present in the bladder. This can be a echogenic there is been recent catheterization. Otherwise an enterovesicular fistula should be considered. PQRS Compliance Statement: One or more of the following individualized dose reduction techniques were utilized for this examination: 1. Automated exposure control 2. Adjustment of the mA and/or kV according to patient size 3. Use of iterative reconstruction technique
--- NOTE | 2017-06-20 16:22 | PDOC ---
SURGICAL PROGRESS NOTE Subjective seen earlier today before drainage procedure still having pain Vital Signs Vital Signs Date Time Temp Pulse Resp B/P (MAP) Pulse Ox O2 Delivery O2 Flow Rate FiO2 06/20/17 14:59 12 94 Room Air 06/20/17 13:59 112 132/61 06/20/17 13:16 2.0 06/20/17 11:00 98.4 98.4 I&O Intake and Output 06/20/17 07:00 Intake Total 2700 ml Output Total 800 ml Balance 1900 ml Intake Oral 0 ml IV Total 2700 ml Output Urine Total 800 ml # Bowel Movements 1 PATIENT HAS A CALL: No Abdomen: Other (RLQ tenderness) Labs Laboratory Tests Test 06/19/17 13:10 06/19/17 13:25 06/19/17 13:50 06/19/17 15:15 Urine Collection Type Unknown Urine Color Yellow Urine Clarity Cloudy Urine pH 7.0 Urine Specific [place] 1.020 Urine Protein 100 mg/dL (NEG-TRACE) Urine Glucose (UA) Negative mg/dL (NEG) Urine Ketones (Stick) Negative mg/dL (NEG) Urine Blood Moderate (NEG) Urine Nitrite Negative (NEG) Urine Bilirubin Small (NEG) Urine Urobilinogen Dipstick 1.0 mg/dL (0.2 mg/dL) Urine Leukocyte Esterase Large (NEG) Urine RBC Fobs /HPF (0-2) Urine WBC Tntc /HPF (0-4) Urine Transitional Epithelial Cells Mod /LPF Urine Bacteria Many /HPF (0-FEW) Urine Hyaline Casts Few /HPF Urine Granular Casts Moderate /HPF White Blood Count 28.4 x10^3/uL (4.0-11.0) Red Blood Count 3.49 x10^6/uL (3.50-5.40) Hemoglobin 10.5 g/dL (12.0-15.5) Hematocrit 31.9 % (36.0-47.0) Mean Corpuscular Volume 91 fL (79-100) Mean Corpuscular Hemoglobin 30 pg (25-35) Mean Corpuscular Hemoglobin Concent 33 g/dL (31-37) Red Cell Distribution Width 13.2 % (11.5-14.5) Platelet Count 386 x10^3/uL (140-400) Neutrophils (%) (Auto) 91 % (31-73) Lymphocytes (%) (Auto) 3 % (24-48) Monocytes (%) (Auto) 5 % (0-9) Eosinophils (%) (Auto) 0 % (0-3) Basophils (%) (Auto) 0 % (0-3) Neutrophils # (Auto) 26.0 x10^3uL (1.8-7.7) Lymphocytes # (Auto) 1.0 x10^3/uL (1.0-4.8) Monocytes # (Auto) 1.4 x10^3/uL (0.0-1.1) Eosinophils # (Auto) 0.0 x10^3/uL (0.0-0.7) Basophils # (Auto) 0.1 x10^3/uL (0.0-0.2) Segmented Neutrophils % 79 % (35-66) Band Neutrophils % 15 % (0-9) Lymphocytes % 1 % (24-48) Monocytes % 4 % (0-10) Eosinophils % 1 % (0-5) Toxic Vacuolation Slight Platelet Estimate Adequate (ADEQUATE) Giant Platelets Few Sodium Level 132 mmol/L (136-145) Potassium Level 3.3 mmol/L (3.5-5.1) Chloride Level 96 mmol/L (98-107) Carbon Dioxide Level 23 mmol/L (21-32) Anion Gap 13 (6-14) Blood Urea Nitrogen 33 mg/dL (7-20) Creatinine 1.8 mg/dL (0.6-1.0) Estimated GFR (Cockcroft-Gault) 27.2 BUN/Creatinine Ratio 18 (6-20) Glucose Level 166 mg/dL (70-99) Calcium Level 8.7 mg/dL (8.5-10.1) Total Bilirubin 0.6 mg/dL (0.2-1.0) Aspartate Amino Transf (AST/SGOT) 20 U/L (15-37) Alanine Aminotransferase (ALT/SGPT) 19 U/L (14-59) Alkaline Phosphatase 67 U/L (46-116) Total Protein 8.0 g/dL (6.4-8.2) Albumin 2.4 g/dL (3.4-5.0) Albumin/Globulin Ratio 0.4 (1.0-1.7) Lipase 97 U/L (73-393) Lactic Acid Level 0.7 mmol/L (0.4-2.0) 1.0 mmol/L (0.4-2.0) Test 06/19/17 16:10 06/20/17 04:58 06/20/17 09:50 Lactic Acid Level 1.2 mmol/L (0.4-2.0) White Blood Count 25.4 x10^3/uL (4.0-11.0) Red Blood Count 3.06 x10^6/uL (3.50-5.40) Hemoglobin 9.2 g/dL (12.0-15.5) Hematocrit 28.3 % (36.0-47.0) Mean Corpuscular Volume 92 fL (79-100) Mean Corpuscular Hemoglobin 30 pg (25-35) Mean Corpuscular Hemoglobin Concent 32 g/dL (31-37) Red Cell Distribution Width 13.5 % (11.5-14.5) Platelet Count 349 x10^3/uL (140-400) Neutrophils (%) (Auto) 90 % (31-73) Lymphocytes (%) (Auto) 6 % (24-48) Monocytes (%) (Auto) 4 % (0-9) Eosinophils (%) (Auto) 0 % (0-3) Basophils (%) (Auto) 0 % (0-3) Neutrophils # (Auto) 22.9 x10^3uL (1.8-7.7) Lymphocytes # (Auto) 1.4 x10^3/uL (1.0-4.8) Monocytes # (Auto) 1.0 x10^3/uL (0.0-1.1) Eosinophils # (Auto) 0.0 x10^3/uL (0.0-0.7) Basophils # (Auto) 0.0 x10^3/uL (0.0-0.2) Reticulocyte Count (auto) 1.0 % (0.5-2.5) Sodium Level 139 mmol/L (136-145) Potassium Level 3.4 mmol/L (3.5-5.1) Chloride Level 105 mmol/L (98-107) Carbon Dioxide Level 19 mmol/L (21-32) Anion Gap 15 (6-14) Blood Urea Nitrogen 27 mg/dL (7-20) Creatinine 1.4 mg/dL (0.6-1.0) Estimated GFR (Cockcroft-Gault) 36.4 Glucose Level 96 mg/dL (70-99) Calcium Level 7.8 mg/dL (8.5-10.1) Iron Level 10 ug/dL (50-170) Total Iron Binding Capacity 150 ug/dL (250-450) Iron Saturation 7 % (15-34) Ferritin 1485 ng/mL (8-252) Vitamin B12 Level 1682 pg/mL (247-911) Serum Folate > 24.00 ng/ml (3.2-20.0) Prothrombin Time 15.6 SEC (11.7-14.0) Prothromb Time International Ratio 1.3 (0.8-1.1) Laboratory Tests Test 06/20/17 04:58 06/20/17 09:50 White Blood Count 25.4 x10^3/uL (4.0-11.0) Red Blood Count 3.06 x10^6/uL (3.50-5.40) Hemoglobin 9.2 g/dL (12.0-15.5) Hematocrit 28.3 % (36.0-47.0) Mean Corpuscular Volume 92 fL (79-100) Mean Corpuscular Hemoglobin 30 pg (25-35) Mean Corpuscular Hemoglobin Concent 32 g/dL (31-37) Red Cell Distribution Width 13.5 % (11.5-14.5) Platelet Count 349 x10^3/uL (140-400) Neutrophils (%) (Auto) 90 % (31-73) Lymphocytes (%) (Auto) 6 % (24-48) Monocytes (%) (Auto) 4 % (0-9) Eosinophils (%) (Auto) 0 % (0-3) Basophils (%) (Auto) 0 % (0-3) Neutrophils # (Auto) 22.9 x10^3uL (1.8-7.7) Lymphocytes # (Auto) 1.4 x10^3/uL (1.0-4.8) Monocytes # (Auto) 1.0 x10^3/uL (0.0-1.1) Eosinophils # (Auto) 0.0 x10^3/uL (0.0-0.7) Basophils # (Auto) 0.0 x10^3/uL (0.0-0.2) Reticulocyte Count (auto) 1.0 % (0.5-2.5) Sodium Level 139 mmol/L (136-145) Potassium Level 3.4 mmol/L (3.5-5.1) Chloride Level 105 mmol/L (98-107) Carbon Dioxide Level 19 mmol/L (21-32) Anion Gap 15 (6-14) Blood Urea Nitrogen 27 mg/dL (7-20) Creatinine 1.4 mg/dL (0.6-1.0) Estimated GFR (Cockcroft-Gault) 36.4 Glucose Level 96 mg/dL (70-99) Calcium Level 7.8 mg/dL (8.5-10.1) Iron Level 10 ug/dL (50-170) Total Iron Binding Capacity 150 ug/dL (250-450) Iron Saturation 7 % (15-34) Ferritin 1485 ng/mL (8-252) Vitamin B12 Level 1682 pg/mL (247-911) Serum Folate > 24.00 ng/ml (3.2-20.0) Prothrombin Time 15.6 SEC (11.7-14.0) Prothromb Time International Ratio 1.3 (0.8-1.1) Problem List Problems Medical Problems: (1) Diverticulitis large intestine Status: Acute (2) Diverticulitis of both large and small intestine with abscess without bleeding Status: Acute Assessment/Plan diverticulitis with perf possible fistula follow post drainage Problems: SOPHIE FRYE MD Jun 20, 2017 16:22
[2017-06-20] MEDS: PERPHENAZINE 2 MG TABLET PO SCH (21:23)
[2017-06-20] MEDS: ACETAMINOPHEN 500 MG TABLET PO SCH (21:23)
[2017-06-20] MEDS: AMITRIPTYLINE HCL 10 MG TABLET. PO SCH (21:23)
[2017-06-21] MEDS: PIPERACILLIN/TAZO IV Push 2.25 GM VIAL. IVP SCH ×4 (00:01→20:26)
[2017-06-21 03:00] VITALS: BP 116/52
[2017-06-21 04:59] LABS: BASO % 0 % (0-3); EOS % 0 % (0-3); HEMATOCRIT 27.7 % (36.0-47.0); LYMPH # 1.9 x10^3/uL (1.0-4.8); LYMPH % 8 % (24-48); MEAN CORPUSCULAR HEMOGLOBIN 30 pg (25-35); MEAN CORPUSCULAR HGB CONC 33 g/dL (31-37); MEAN CORPUSCULAR VOLUME 93 fL (79-100); MONO % 3 % (0-9); NEUT % 89 % (31-73); PLATELET COUNT 368 x10^3/uL (140-400); RED BLOOD COUNT 2.98 x10^6/uL (3.50-5.40); RED CELL DISTRIBUTION WIDTH 13.9 % (11.5-14.5); WHITE BLOOD COUNT 24.7 x10^3/uL (4.0-11.0)
[2017-06-21 05:38] LABS: CALCIUM 8.2 mg/dL (8.5-10.1); CREATININE 1.4 mg/dL (0.6-1.0); GFR 36.4; POTASSIUM 3.6 mmol/L (3.5-5.1)
[2017-06-21 07:00] VITALS: BP 117/63
[2017-06-21] MEDS: MULTIVITAMIN with MINERAL TABLET. PO SCH (08:54)
[2017-06-21] MEDS: METOPROLOL SUCC 24HR ER 50 MG TAB.ER.24H. PO SCH (08:54)
--- NOTE | 2017-06-21 09:17 | PDOC ---
PROGRESS NOTES Subjective Patient is resting on her side, she had drain places in her lower back by IR yesterday to drain diverticular abscess. She reports sleeping well but has pain in retroperitoneum from recent drain placement. She is able to tolerate water, denies N/V. She has yet to have a bowel movement. Objective Afebrile BP: 116/52 General: A&Ox3, NAD, c/o fatigue Heart: RRR Lungs: Clear BL Abd: Tender in R quadrants, drain in R retroperitoneum draining serosanguineous fluid Ext: No edema, strength intact WBC: 24.7 Hgb: 9.0 K+: 3.6 Creat: 1.4 Vital Signs Vital Signs Date Time Temp Pulse Resp B/P (MAP) Pulse Ox O2 Delivery O2 Flow Rate FiO2 06/21/17 08:54 94 116/52 06/21/17 03:00 95.9 18 Room Air 95.9 06/20/17 23:00 97 06/20/17 13:16 2.0 I & O Intake and Output 06/21/17 07:00 Intake Total 1500 ml Output Total 825 ml Balance 675 ml Intake Oral 1500 ml Output Urine Total 500 ml Drainage Total 25 ml Other 300 ml Assessment and Plan Problems ASSESSMENT: 1. Diverticular abscess. 2. Urinary tract infection. 3. Systemic inflammatory response syndrome. 4. Diverticulosis. 5. Acute renal failure. 6. Anemia of chronic disease or unknown origin. 7. Mitral valve prolapse. 8. Chronic anxiety. PLAN: She is admitted. She is currently on IV antibiotics and appears to be responding. She is tolerating water PO. Her electrolytes are improving. She has refused surgery. IR placed drain yesterday, draining serosanguineous fluid. Gram stain of abscess shows many gram negative rods and gram positive cocci suggestive of anaerobic bacteria, on Zosyn and metronidazole. May need to involve ID also and possibly GI if WBC count continue to be elevated, 24.7 today. Problems: Zandra CUELLAR MD Jun 21, 2017 09:17
[2017-06-21 11:00] VITALS: BP 154/74
--- NOTE | 2017-06-21 13:29 | PDOC ---
MINGO CERVANTES [employer]ER 06/21/17 1329: SURGICAL PROGRESS NOTE Subjective pain not much improvement Vital Signs Vital Signs Date Time Temp Pulse Resp B/P (MAP) Pulse Ox O2 Delivery O2 Flow Rate FiO2 06/21/17 08:54 94 116/52 06/21/17 07:00 98.0 18 95 Room Air 98.0 06/20/17 13:16 2.0 I&O Intake and Output 06/21/17 07:00 Intake Total 1500 ml Output Total 825 ml Balance 675 ml Intake Oral 1500 ml Output Urine Total 500 ml Drainage Total 25 ml Other 300 ml General: Alert, Oriented X3, Cooperative, No acute distress Abdomen: Soft, Other (drain in place, tender lower abdomen ) Labs Laboratory Tests Test 06/19/17 13:50 06/19/17 15:15 06/19/17 16:10 06/20/17 04:58 Lactic Acid Level 0.7 mmol/L (0.4-2.0) 1.0 mmol/L (0.4-2.0) 1.2 mmol/L (0.4-2.0) White Blood Count 25.4 x10^3/uL (4.0-11.0) Red Blood Count 3.06 x10^6/uL (3.50-5.40) Hemoglobin 9.2 g/dL (12.0-15.5) Hematocrit 28.3 % (36.0-47.0) Mean Corpuscular Volume 92 fL (79-100) Mean Corpuscular Hemoglobin 30 pg (25-35) Mean Corpuscular Hemoglobin Concent 32 g/dL (31-37) Red Cell Distribution Width 13.5 % (11.5-14.5) Platelet Count 349 x10^3/uL (140-400) Neutrophils (%) (Auto) 90 % (31-73) Lymphocytes (%) (Auto) 6 % (24-48) Monocytes (%) (Auto) 4 % (0-9) Eosinophils (%) (Auto) 0 % (0-3) Basophils (%) (Auto) 0 % (0-3) Neutrophils # (Auto) 22.9 x10^3uL (1.8-7.7) Lymphocytes # (Auto) 1.4 x10^3/uL (1.0-4.8) Monocytes # (Auto) 1.0 x10^3/uL (0.0-1.1) Eosinophils # (Auto) 0.0 x10^3/uL (0.0-0.7) Basophils # (Auto) 0.0 x10^3/uL (0.0-0.2) Reticulocyte Count (auto) 1.0 % (0.5-2.5) Sodium Level 139 mmol/L (136-145) Potassium Level 3.4 mmol/L (3.5-5.1) Chloride Level 105 mmol/L (98-107) Carbon Dioxide Level 19 mmol/L (21-32) Anion Gap 15 (6-14) Blood Urea Nitrogen 27 mg/dL (7-20) Creatinine 1.4 mg/dL (0.6-1.0) Estimated GFR (Cockcroft-Gault) 36.4 Glucose Level 96 mg/dL (70-99) Calcium Level 7.8 mg/dL (8.5-10.1) Iron Level 10 ug/dL (50-170) Total Iron Binding Capacity 150 ug/dL (250-450) Iron Saturation 7 % (15-34) Ferritin 1485 ng/mL (8-252) Vitamin B12 Level 1682 pg/mL (247-911) Serum Folate > 24.00 ng/ml (3.2-20.0) Test 06/20/17 09:50 06/21/17 03:50 06/21/17 04:48 Prothrombin Time 15.6 SEC (11.7-14.0) Prothromb Time International Ratio 1.3 (0.8-1.1) White Blood Count 24.7 x10^3/uL (4.0-11.0) Red Blood Count 2.98 x10^6/uL (3.50-5.40) Hemoglobin 9.0 g/dL (12.0-15.5) Hematocrit 27.7 % (36.0-47.0) Mean Corpuscular Volume 93 fL (79-100) Mean Corpuscular Hemoglobin 30 pg (25-35) Mean Corpuscular Hemoglobin Concent 33 g/dL (31-37) Red Cell Distribution Width 13.9 % (11.5-14.5) Platelet Count 368 x10^3/uL (140-400) Neutrophils (%) (Auto) 89 % (31-73) Lymphocytes (%) (Auto) 8 % (24-48) Monocytes (%) (Auto) 3 % (0-9) Eosinophils (%) (Auto) 0 % (0-3) Basophils (%) (Auto) 0 % (0-3) Neutrophils # (Auto) 22.0 x10^3uL (1.8-7.7) Lymphocytes # (Auto) 1.9 x10^3/uL (1.0-4.8) Monocytes # (Auto) 0.8 x10^3/uL (0.0-1.1) Eosinophils # (Auto) 0.0 x10^3/uL (0.0-0.7) Basophils # (Auto) 0.0 x10^3/uL (0.0-0.2) Sodium Level 140 mmol/L (136-145) Potassium Level 3.6 mmol/L (3.5-5.1) Chloride Level 107 mmol/L (98-107) Carbon Dioxide Level 19 mmol/L (21-32) Anion Gap 14 (6-14) Blood Urea Nitrogen 24 mg/dL (7-20) Creatinine 1.4 mg/dL (0.6-1.0) Estimated GFR (Cockcroft-Gault) 36.4 Glucose Level 100 mg/dL (70-99) Calcium Level 8.2 mg/dL (8.5-10.1) Laboratory Tests Test 06/21/17 03:50 06/21/17 04:48 White Blood Count 24.7 x10^3/uL (4.0-11.0) Red Blood Count 2.98 x10^6/uL (3.50-5.40) Hemoglobin 9.0 g/dL (12.0-15.5) Hematocrit 27.7 % (36.0-47.0) Mean Corpuscular Volume 93 fL (79-100) Mean Corpuscular Hemoglobin 30 pg (25-35) Mean Corpuscular Hemoglobin Concent 33 g/dL (31-37) Red Cell Distribution Width 13.9 % (11.5-14.5) Platelet Count 368 x10^3/uL (140-400) Neutrophils (%) (Auto) 89 % (31-73) Lymphocytes (%) (Auto) 8 % (24-48) Monocytes (%) (Auto) 3 % (0-9) Eosinophils (%) (Auto) 0 % (0-3) Basophils (%) (Auto) 0 % (0-3) Neutrophils # (Auto) 22.0 x10^3uL (1.8-7.7) Lymphocytes # (Auto) 1.9 x10^3/uL (1.0-4.8) Monocytes # (Auto) 0.8 x10^3/uL (0.0-1.1) Eosinophils # (Auto) 0.0 x10^3/uL (0.0-0.7) Basophils # (Auto) 0.0 x10^3/uL (0.0-0.2) Sodium Level 140 mmol/L (136-145) Potassium Level 3.6 mmol/L (3.5-5.1) Chloride Level 107 mmol/L (98-107) Carbon Dioxide Level 19 mmol/L (21-32) Anion Gap 14 (6-14) Blood Urea Nitrogen 24 mg/dL (7-20) Creatinine 1.4 mg/dL (0.6-1.0) Estimated GFR (Cockcroft-Gault) 36.4 Glucose Level 100 mg/dL (70-99) Calcium Level 8.2 mg/dL (8.5-10.1) Problem List Problems Medical Problems: (1) Diverticulitis large intestine Status: Acute (2) Diverticulitis of both large and small intestine with abscess without bleeding Status: Acute Assessment/Plan diverticulitis with perf possible fistula will follow , may require surgery at some point Problems: SOPHIE FRYE MD 06/21/17 1352: SURGICAL PROGRESS NOTE Assessment/Plan pt seen and examined agree with above Dr Taylor to follow in my absence Problems: MINGO CERVANTES APRN Jun 21, 2017 13:29 SOPHIE FRYE MD Jun 21, 2017 13:52
[2017-06-21] MEDS: IV NORMAL SALINE 1000ML BAG 1,000 ML IV SCH (14:59)
[2017-06-21 15:00] VITALS: BP 130/68
[2017-06-21] MEDS ORDERED: IV NORMAL SALINE 1000ML BAG 1,000 ML IV ONE (15:00)
[2017-06-21 19:00] VITALS: BP 136/54
[2017-06-21] MEDS: PERPHENAZINE 2 MG TABLET PO SCH (21:33)
[2017-06-21] MEDS: ACETAMINOPHEN 500 MG TABLET PO SCH (21:33)
[2017-06-21] MEDS: traMADol 50 MG TABLET PO PRN (21:34)
[2017-06-21] MEDS: AMITRIPTYLINE HCL 10 MG TABLET. PO SCH (21:34)
[2017-06-21 23:00] VITALS: BP_SYST 136
[2017-06-22] MEDS: PIPERACILLIN/TAZO IV Push 2.25 GM VIAL. IVP SCH ×4 (00:35→17:54)
[2017-06-22] MEDS: IV NORMAL SALINE 1000ML BAG 1,000 ML IV SCH ×4 (00:36→22:04)
[2017-06-22 03:00] VITALS: BP 130/68
[2017-06-22 07:00] VITALS: BP 127/51
[2017-06-22] MEDS: MULTIVITAMIN with MINERAL TABLET. PO SCH (08:27)
[2017-06-22] MEDS: METOPROLOL SUCC 24HR ER 50 MG TAB.ER.24H. PO SCH (08:29)
[2017-06-22 11:00] VITALS: BP 140/60
--- NOTE | 2017-06-22 12:27 | PDOC ---
SURGICAL PROGRESS NOTE Subjective Pt with c/o pain, no N/V, hungry, passing flatus Vital Signs Vital Signs Date Time Temp Pulse Resp B/P (MAP) Pulse Ox O2 Delivery O2 Flow Rate FiO2 06/22/17 08:29 69 127/51 06/22/17 07:40 Room Air 06/22/17 07:00 97.9 18 100 97.9 06/21/17 22:34 2.0 I&O Intake and Output 06/22/17 07:00 Intake Total 2240 ml Output Total 1400 ml Balance 840 ml Intake Oral 2240 ml Output Urine Total 1350 ml Drainage Total 50 ml General: Alert, Oriented X3, Cooperative, mild distress Abdomen: Soft, Other (mild TTP, drain with purulent output, minimal) Labs Laboratory Tests Test 06/21/17 03:50 06/21/17 04:48 White Blood Count 24.7 x10^3/uL (4.0-11.0) Red Blood Count 2.98 x10^6/uL (3.50-5.40) Hemoglobin 9.0 g/dL (12.0-15.5) Hematocrit 27.7 % (36.0-47.0) Mean Corpuscular Volume 93 fL (79-100) Mean Corpuscular Hemoglobin 30 pg (25-35) Mean Corpuscular Hemoglobin Concent 33 g/dL (31-37) Red Cell Distribution Width 13.9 % (11.5-14.5) Platelet Count 368 x10^3/uL (140-400) Neutrophils (%) (Auto) 89 % (31-73) Lymphocytes (%) (Auto) 8 % (24-48) Monocytes (%) (Auto) 3 % (0-9) Eosinophils (%) (Auto) 0 % (0-3) Basophils (%) (Auto) 0 % (0-3) Neutrophils # (Auto) 22.0 x10^3uL (1.8-7.7) Lymphocytes # (Auto) 1.9 x10^3/uL (1.0-4.8) Monocytes # (Auto) 0.8 x10^3/uL (0.0-1.1) Eosinophils # (Auto) 0.0 x10^3/uL (0.0-0.7) Basophils # (Auto) 0.0 x10^3/uL (0.0-0.2) Sodium Level 140 mmol/L (136-145) Potassium Level 3.6 mmol/L (3.5-5.1) Chloride Level 107 mmol/L (98-107) Carbon Dioxide Level 19 mmol/L (21-32) Anion Gap 14 (6-14) Blood Urea Nitrogen 24 mg/dL (7-20) Creatinine 1.4 mg/dL (0.6-1.0) Estimated GFR (Cockcroft-Gault) 36.4 Glucose Level 100 mg/dL (70-99) Calcium Level 8.2 mg/dL (8.5-10.1) Problem List Problems Medical Problems: (1) Diverticulitis large intestine Status: Acute (2) Diverticulitis of both large and small intestine with abscess without bleeding Status: Acute Assessment/Plan cont abx and abx will try clears Problems: ZEYNEP GARCIA MD Jun 22, 2017 12:27
[2017-06-22 12:42] LABS: NEG OBC FOB NEG; POS OBC FOB POS
[2017-06-22 15:00] VITALS: BP_SYST 146; BP_SYST 157; BP_DIAS 72; BP_DIAS 87
--- NOTE | 2017-06-22 15:05 | PDOC ---
PROGRESS NOTES Subjective Mouth dry despite IV and oral hydration, she is worried about SVT as has a hx if misses her metoprolol. She had a black tarry stool Objective Afebrile BP: 140/60 General: mouth dry but NAD, alert and oriented Heart: RRR Lungs: CTAB Abd: soft, non distended Ext: no C/C/E no lab today, DAWN drain still putting out Vital Signs Vital Signs Date Time Temp Pulse Resp B/P (MAP) Pulse Ox O2 Delivery O2 Flow Rate FiO2 06/22/17 11:00 97.9 53 18 140/60 (86) 98 Room Air 97.9 06/21/17 22:34 2.0 I & O Intake and Output 06/22/17 07:00 Intake Total 2240 ml Output Total 1400 ml Balance 840 ml Intake Oral 2240 ml Output Urine Total 1350 ml Drainage Total 50 ml Assessment and Plan 1. Sepsis from diverticular abscess from perforated diverticulum, s/p IR drain placement, she refused surgery and temporary colostomy, blood cultures negative. 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 UTI - separate bacteria from abscess per cultures 3. chronic anxiety 4. mitral valve prolapse with hx of SVT Problems: Zandra CUELLAR MD Jun 22, 2017 15:05
[2017-06-22] MEDS: FERROUS SULFATE 325 MG TABLET. PO SCH (17:59)
[2017-06-22] MEDS: ASCORBIC ACID 500 MG TABLET PO SCH (18:00)
[2017-06-22 19:00] VITALS: BP 174/79
[2017-06-22] MEDS: PERPHENAZINE 2 MG TABLET PO SCH (22:02)
[2017-06-22] MEDS: ACETAMINOPHEN 500 MG TABLET PO SCH (22:02)
[2017-06-22] MEDS: traMADol 50 MG TABLET PO PRN (22:02)
[2017-06-22] MEDS: AMITRIPTYLINE HCL 10 MG TABLET. PO SCH (22:02)
[2017-06-22 23:00] VITALS: BP 141/67
[2017-06-22] MEDS ORDERED: diphenhydrAMINE 50 MG/ML VIAL IVP PRN (23:30)
[2017-06-22] MEDS ORDERED: ACETAMINOPHEN 650 MG SUPP.RECT. PR PRN (23:30)
[2017-06-23] MEDS: PIPERACILLIN/TAZO IV Push 2.25 GM VIAL. IVP SCH ×2 (01:06→06:28)
[2017-06-23 03:00] VITALS: BP 144/69
[2017-06-23 05:24] LABS: BASO % 0 % (0-3); EOS % 1 % (0-3); HEMATOCRIT 28.7 % (36.0-47.0); HEMOGLOBIN 9.2 g/dL (12.0-15.5); LYMPH # 2.6 x10^3/uL (1.0-4.8); LYMPH % 14 % (24-48); MEAN CORPUSCULAR HEMOGLOBIN 29 pg (25-35); MEAN CORPUSCULAR HGB CONC 32 g/dL (31-37); MEAN CORPUSCULAR VOLUME 92 fL (79-100); MONO % 4 % (0-9); NEUT % 82 % (31-73); PLATELET COUNT 445 x10^3/uL (140-400); RED BLOOD COUNT 3.12 x10^6/uL (3.50-5.40); WHITE BLOOD COUNT 19.3 x10^3/uL (4.0-11.0)
[2017-06-23 06:01] LABS: CALCIUM 7.8 mg/dL (8.5-10.1); GFR 53.6
[2017-06-23 06:15] LABS: POTASSIUM 2.7 mmol/L (3.5-5.1)
[2017-06-23] MEDS ORDERED: POTASSIUM CHLORIDE 20 MEQ TABLET.ER. PO ONE (06:45)
[2017-06-23 07:00] VITALS: BP 167/76
--- NOTE | 2017-06-23 08:52 | PDOC ---
Infectious Disease Note ROS ROS Vital Sign Vital Signs Vital Signs Date Time Temp Pulse Resp B/P (MAP) Pulse Ox O2 Delivery O2 Flow Rate FiO2 06/23/17 03:00 99.5 95 16 144/69 (94) 97 Room Air 99.5 Labs Lab Laboratory Tests Test 06/22/17 12:15 06/23/17 03:50 Stool Occult Blood Negative (NEG) White Blood Count 19.3 x10^3/uL (4.0-11.0) Red Blood Count 3.12 x10^6/uL (3.50-5.40) Hemoglobin 9.2 g/dL (12.0-15.5) Hematocrit 28.7 % (36.0-47.0) Mean Corpuscular Volume 92 fL (79-100) Mean Corpuscular Hemoglobin 29 pg (25-35) Mean Corpuscular Hemoglobin Concent 32 g/dL (31-37) Red Cell Distribution Width 14.0 % (11.5-14.5) Platelet Count 445 x10^3/uL (140-400) Neutrophils (%) (Auto) 82 % (31-73) Lymphocytes (%) (Auto) 14 % (24-48) Monocytes (%) (Auto) 4 % (0-9) Eosinophils (%) (Auto) 1 % (0-3) Basophils (%) (Auto) 0 % (0-3) Neutrophils # (Auto) 15.8 x10^3uL (1.8-7.7) Lymphocytes # (Auto) 2.6 x10^3/uL (1.0-4.8) Monocytes # (Auto) 0.7 x10^3/uL (0.0-1.1) Eosinophils # (Auto) 0.1 x10^3/uL (0.0-0.7) Basophils # (Auto) 0.0 x10^3/uL (0.0-0.2) Sodium Level 140 mmol/L (136-145) Potassium Level 2.7 mmol/L (3.5-5.1) Chloride Level 108 mmol/L (98-107) Carbon Dioxide Level 20 mmol/L (21-32) Anion Gap 12 (6-14) Blood Urea Nitrogen 15 mg/dL (7-20) Creatinine 1.0 mg/dL (0.6-1.0) Estimated GFR (Cockcroft-Gault) 53.6 Glucose Level 92 mg/dL (70-99) Calcium Level 7.8 mg/dL (8.5-10.1) Objective Assessment Leukocytosis UTI - POA (06/19) Klebsiella Res to Amp/Quinolones/Bactrim Diverticular abscess - Pans Ecoli so far (06/20) Loose stool Perf viscous - declined surgery H/o SVT Plan Plan of Care Cont abx IV for now. Diet is advancing F/u C-diff but unlikely - AF - if neg will d/c Flagyl Increase Zosyn dose Add probiotics May need repeat CT given gas in bladder on CT and no styles placement - ? fistula F/u labs thank you # [phone] FLORA PACKER MD Jun 23, 2017 08:52
[2017-06-23] MEDS: IV NORMAL SALINE 1000ML BAG 1,000 ML IV SCH (10:01)
[2017-06-23] MEDS: ASCORBIC ACID 500 MG TABLET PO SCH (10:02)
[2017-06-23] MEDS: METOPROLOL SUCC 24HR ER 50 MG TAB.ER.24H. PO SCH (10:02)
[2017-06-23] MEDS: FERROUS SULFATE 325 MG TABLET. PO SCH (10:02)
[2017-06-23] MEDS: MULTIVITAMIN with MINERAL TABLET. PO SCH (10:03)
[2017-06-23] MEDS: LACTOBACILLUS RHAMNOSUS GG 1 CAPSULE. PO SCH ×3 (10:03→21:11)
[2017-06-23] MEDS ORDERED: PIPERACILLIN/TAZOBACTAM 3.375 GM in IV DEXTROSE 5% 50 ML IV SCH ×2 (12:00→16:00)
--- NOTE | 2017-06-23 12:33 | PDOC ---
SURGICAL PROGRESS NOTE Subjective Pt with c/o BLQ pain, yassine clears, passing stools, feels better then 4 days ago Vital Signs Vital Signs Date Time Temp Pulse Resp B/P (MAP) Pulse Ox O2 Delivery O2 Flow Rate FiO2 06/23/17 10:02 95 144/69 06/23/17 07:00 98.2 18 98 Room Air 98.2 I&O Intake and Output 06/23/17 07:00 Output Total 1975 ml Balance -1975 ml Output Urine Total 1950 ml Drainage Total 25 ml # Bowel Movements 3 General: Alert, Oriented X3, Cooperative, No acute distress Abdomen: Soft, No tenderness, Other (drain with seropurulent material) Labs Laboratory Tests Test 06/22/17 12:15 06/23/17 03:50 Stool Occult Blood Negative (NEG) White Blood Count 19.3 x10^3/uL (4.0-11.0) Red Blood Count 3.12 x10^6/uL (3.50-5.40) Hemoglobin 9.2 g/dL (12.0-15.5) Hematocrit 28.7 % (36.0-47.0) Mean Corpuscular Volume 92 fL (79-100) Mean Corpuscular Hemoglobin 29 pg (25-35) Mean Corpuscular Hemoglobin Concent 32 g/dL (31-37) Red Cell Distribution Width 14.0 % (11.5-14.5) Platelet Count 445 x10^3/uL (140-400) Neutrophils (%) (Auto) 82 % (31-73) Lymphocytes (%) (Auto) 14 % (24-48) Monocytes (%) (Auto) 4 % (0-9) Eosinophils (%) (Auto) 1 % (0-3) Basophils (%) (Auto) 0 % (0-3) Neutrophils # (Auto) 15.8 x10^3uL (1.8-7.7) Lymphocytes # (Auto) 2.6 x10^3/uL (1.0-4.8) Monocytes # (Auto) 0.7 x10^3/uL (0.0-1.1) Eosinophils # (Auto) 0.1 x10^3/uL (0.0-0.7) Basophils # (Auto) 0.0 x10^3/uL (0.0-0.2) Sodium Level 140 mmol/L (136-145) Potassium Level 2.7 mmol/L (3.5-5.1) Chloride Level 108 mmol/L (98-107) Carbon Dioxide Level 20 mmol/L (21-32) Anion Gap 12 (6-14) Blood Urea Nitrogen 15 mg/dL (7-20) Creatinine 1.0 mg/dL (0.6-1.0) Estimated GFR (Cockcroft-Gault) 53.6 Glucose Level 92 mg/dL (70-99) Calcium Level 7.8 mg/dL (8.5-10.1) Laboratory Tests Test 06/23/17 03:50 White Blood Count 19.3 x10^3/uL (4.0-11.0) Red Blood Count 3.12 x10^6/uL (3.50-5.40) Hemoglobin 9.2 g/dL (12.0-15.5) Hematocrit 28.7 % (36.0-47.0) Mean Corpuscular Volume 92 fL (79-100) Mean Corpuscular Hemoglobin 29 pg (25-35) Mean Corpuscular Hemoglobin Concent 32 g/dL (31-37) Red Cell Distribution Width 14.0 % (11.5-14.5) Platelet Count 445 x10^3/uL (140-400) Neutrophils (%) (Auto) 82 % (31-73) Lymphocytes (%) (Auto) 14 % (24-48) Monocytes (%) (Auto) 4 % (0-9) Eosinophils (%) (Auto) 1 % (0-3) Basophils (%) (Auto) 0 % (0-3) Neutrophils # (Auto) 15.8 x10^3uL (1.8-7.7) Lymphocytes # (Auto) 2.6 x10^3/uL (1.0-4.8) Monocytes # (Auto) 0.7 x10^3/uL (0.0-1.1) Eosinophils # (Auto) 0.1 x10^3/uL (0.0-0.7) Basophils # (Auto) 0.0 x10^3/uL (0.0-0.2) Sodium Level 140 mmol/L (136-145) Potassium Level 2.7 mmol/L (3.5-5.1) Chloride Level 108 mmol/L (98-107) Carbon Dioxide Level 20 mmol/L (21-32) Anion Gap 12 (6-14) Blood Urea Nitrogen 15 mg/dL (7-20) Creatinine 1.0 mg/dL (0.6-1.0) Estimated GFR (Cockcroft-Gault) 53.6 Glucose Level 92 mg/dL (70-99) Calcium Level 7.8 mg/dL (8.5-10.1) Problem List Problems Medical Problems: (1) Diverticulitis large intestine Status: Acute (2) Diverticulitis of both large and small intestine with abscess without bleeding Status: Acute Assessment/Plan diverticular abscess, improving cont drain and abx will check UA agree with considering repeat CT, if continued sx Problems: ZEYNEP GARCIA MD Jun 23, 2017 12:33
--- NOTE | 2017-06-23 13:15 | CONS ---
DATE OF CONSULTATION: 06/23/2017 PATIENT LOCATION: Room 442. REQUESTING PHYSICIAN: Dr. Ulloa. REASON FOR CONSULTATION: IV antibiotics. HISTORY OF PRESENT ILLNESS: The patient is a pleasant 76-year-old female with history of previous urinary tract infection back in January secondary to E. coli, resistant to the quinolones, Bactrim and intermediate to nitrofurantoin. She also has a history of diverticulitis back in January. She began to have some abdominal pain of approximately a week or so ago with irritable bowel symptoms including intermittent diarrhea, constipation. She then states that she developed a sensation where she was extensively sitting on a bowel movement. She was finally brought to the Emergency Room at [facility] as pain worsened. On 06/19/2017, had a white count of 28,400. Urinalysis was consistent with urinary tract infection. Cultures since turned positive for Klebsiella that was resistant to the quinolones, ampicillin as well as Bactrim. She underwent a CT scan of the abdomen and pelvis on the , showed an 11.8 cm loculated fluid collection containing gas and possible fecal material not well from the sigmoid colon, uterus and the right ovary, also had some gas within the urinary bladder. Since her admission, she has not had a Barksdale placed. She has been placed on Zosyn, Flagyl was added. She has had increased loose stools. She subsequently underwent drainage placement as on the , she has declined surgery. Cultures from there have grown out E. coli. Currently, she is lying in bed. She is fairly comfortable. No fever, chills or sweats. No headaches, sore throat, cough or chest pain. No Barksdale is in place. Prior to coming in, she did kind of lose her balance on the stairs, and kind of sat down on the bump in her hip. Otherwise, she is doing fairly well. PAST MEDICAL HISTORY: Positive for the above-mentioned urinary tract infection. History of previous diverticulitis, diverticulosis, chronic anxiety, mitral valve prolapse, and hypertension. PAST SURGICAL HISTORY: Positive for cataract extractions. REVIEW OF SYSTEMS: Otherwise negative. ALLERGIES: No known drug allergies. SOCIAL HISTORY: She lives at home and cares for her who is a paraplegic. No tobacco or alcohol. FAMILY HISTORY: Noncontributory. CURRENT MEDICATIONS: Zosyn, metronidazole, Elavil, ascorbic acid, ferrous sulfate, Toprol XL, Etrafon, and Ultram. PHYSICAL EXAMINATION: VITAL SIGNS: Current temperature is 99.5, pulse 95, respirations 16, blood pressure 124/69, satting 97% on room air. CONSTITUTIONAL: She is very pleasant. She is cooperative. She is in no acute distress. HEENT: Pupils are equal and reactive. She has normal conjunctivae. Oral cavity, oropharynx is clear. NECK: Supple with good range of motion. LUNGS: Clear to auscultation bilaterally. HEART: S1, S2. ABDOMEN: Soft, minimally distended, minimal tenderness. She has a drain placed in the right posterior area just about her buttock cleft. EXTREMITIES: No clubbing, cyanosis or gross edema. Right hip has a small bruise on it without signs of any inflammation or surrounding complications. SKIN: Warm to touch. NEUROLOGIC: Nonfocal. PSYCHIATRIC: Affect is appropriate. LABORATORY DATA: White count 9.3, hemoglobin 9.2, platelets of 445, neutrophils 82, creatinine of 1. Glucose 92. Cultures reviewed in history of present illness as well as imaging. IMPRESSION: 1. Leukocytosis. 2. Urinary tract infection, present on admission with Klebsiella resistant to ampicillin, quinolones and Bactrim. 3. Diverticular abscess, pansensitive Escherichia coli so far from the 13th. 4. Loose stools. 5. Perforated viscus, has declined surgery. 6. History of supraventricular tachycardia. RECOMMENDATIONS: For now, we will continue antibiotics, her diet is advanced. Followup on C. diff is unlikely as she is afebrile. If negative, we will discontinue ____ increase Zosyn dose, add probiotics. She may need a repeat CAT scan given the gas in the bladder on a CAT scan. She has not had any Barksdale placement, so potential fistula is possible. Follow up on labs. Thank you for allowing me to see and participate in the patient's care. If you have any questions, please do not hesitate to contact me. FLORA PACKER MD DR: HU/lacie JOB#: [id number] / [id number]
[2017-06-23] MEDS ORDERED: IOHEXOL 240 MG/ML 50ML VIAL. PO ONE (13:30)
[2017-06-23] MEDS ORDERED: IOHEXOL 300 MG/ML 100ML VIAL. IV ONE (13:30)
[2017-06-23] MEDS ORDERED: CONTRAST GIVEN MC PRN (13:45)
[2017-06-23 15:00] VITALS: BP 196/85
[2017-06-23] MEDS: PIPERACILLIN/TAZO IV Push 3.375 GM VIAL. IVP SCH ×3 (15:55→22:00)
--- NOTE | 2017-06-23 16:24 | RAD ---
CT abdomen and pelvis with contrast 06/23/2017 Clinical indication: Perforated diverticular abscess, possible bladder fistula. Comparison: CT abdomen and pelvis 06/19/2017, 01/30/2017. Technique: Multiple CT images of the abdomen and pelvis were obtained following the intravenous administration of 60 mL Omnipaque 300. RS Compliance Statement: One or more of the following individualized dose reduction techniques were utilized for this examination: 1. Automated exposure control 2. Adjustment of the mA and/or kV according to patient size 3. Use of iterative reconstruction technique Findings: Development of small bilateral pleural effusions and adjacent atelectasis. Heart size is normal. Calcific granuloma in the right lower lobe. Liver is normal in size and morphology. There is a stable hepatic segment 2 cyst measuring 4.0 cm. There are additional subcentimeter hepatic hypodensities in the right lobe which are too small to definitively characterize series 2/image 15, 22 and 27. There is mild dilatation of the gallbladder without pericholecystic fluid. No intra or extra hepatic bile or ductal dilatation. Spleen, adrenal glands and pancreas are unremarkable. There is a 0.5 cm hypodensity in the inferior pole of the left kidney. There is an exophytic cyst from the interpolar right kidney. No hydronephrosis. Abdominal aorta is normal caliber with moderate atheromatous disease. Small and large bowel loops are normal in caliber without obstruction. Appendix is normal in appearance. There is extensive distal colonic diverticulosis. Interval placement of right posterior pelvic approach pigtail drainage catheter there is no significant adjacent fluid near the tip of the drainage catheter. There is a peripherally enhancing gas/fluid collection at the inferior aspect of the distal sigmoid colon with extension into the superior aspect of the vaginal cuff or uterine fundus if it is still present. Gas/fluid collection measures 5.5 cm AP x 3.8 cm TV x 3.1 cm CC series 2/466 series 5/image 27. There is asymmetric enlargement of the right ovary measuring 4.4 cm series 2/64 with punctate foci of gas along the superior aspect on series 2/image 61. There is presacral thickening and perirectal edema. There is mild nondependent and shoulder gas in the urinary bladder. There are no destructive osseous lesions Impression: 1. Interval placement of perirectal drainage catheter with no significant fluid adjacent to the catheter tip. 2. Peripheral enhancing gas/fluid collection, measuring 5.5 cm, inferior to the distal sigmoid colon and inseparable from the vaginal cuff/uterus concerning for pericolonic abscess and colouterine fistula if the uterus is present or colovaginal fistula if the uterus is absent. Correlation for hysterectomy is recommended. 3. Asymmetric enlargement of the right ovary with 2 punctate foci of gas along the superior margin. Findings may represent a broad ligament inflammation and tubo-ovarian abscess or phlegmon. 4. Urinary bladder intraluminal gas which may be due to recent instrumentation, however colovesical fistula cannot be definitively excluded. 5. Development of small bilateral pleural effusions.
[2017-06-23] MEDS ORDERED: IV NORMAL SALINE 1000ML BAG 1,000 ML IV SCH (17:00)
[2017-06-23] MEDS: VANCOMYCIN 125 MG/2.5 ML ORAL SOLUTION. PO SCH ×2 (18:30→21:11)
--- NOTE | 2017-06-23 18:30 | PDOC ---
PROGRESS NOTES Subjective Now having diarrhea and C.diff positive, tolerating oral liquids and meds. pain controlled, no chest pain, no SOA, no joint pain or headache Objective Afebrile General: NAD, well hydrated now Heart: RRR Lungs: CTA Abd: RLQ tenderness, drain still putting out purulent looking fluid Ext: no C/C/E WBC: improving Hgb: stable anemia, fecal occult blood negative K+: low and being replaced Creat: stable Vital Signs Vital Signs Date Time Temp Pulse Resp B/P (MAP) Pulse Ox O2 Delivery O2 Flow Rate FiO2 06/23/17 15:00 97.9 98 20 196/85 (122) 98 Room Air 97.9 06/21/17 22:34 2.0 I & O Intake and Output 06/23/17 07:00 Output Total 1975 ml Balance -1975 ml Output Urine Total 1950 ml Drainage Total 25 ml # Bowel Movements 3 Assessment and Plan 1. Sepsis from diverticular abscess from perforated diverticulum, s/p IR drain placement, she refused surgery and temporary colostomy, blood cultures negative. Will consult ID and case management as will likely need PICC and home IV antibiotics vs SNU for IV antibiotics but she takes care of her paraplegic . 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 UTI - separate bacteria from abscess per cultures 3. chronic anxiety 4. mitral valve prolapse with hx of SVT 5. diarrhea, C.diff now positive Problems: Zandra CUELLAR MD Jun 23, 2017 18:30
[2017-06-23 19:30] VITALS: BP 140/70
[2017-06-23] MEDS: ACETAMINOPHEN 500 MG TABLET PO SCH (21:11)
[2017-06-23] MEDS: PERPHENAZINE 2 MG TABLET PO SCH (21:11)
[2017-06-23] MEDS: traMADol 50 MG TABLET PO PRN (21:11)
[2017-06-23] MEDS: AMITRIPTYLINE HCL 10 MG TABLET. PO SCH (21:11)
[2017-06-23 21:40] LABS: BILIRUBIN,URINE NEGATIVE (NEG); GLUCOSE,URINE NEGATIVE (NEG); NITRITE,URINE NEGATIVE (NEG); PROTEIN,URINE NEGATIVE (NEG-TRACE); UROBILINOGEN,URINE 0.2 mg/dL (0.2 mg/dL)
[2017-06-23 21:45] LABS: BACTERIA,URINE 0 /HPF (0-FEW); SQUAMOUS EPITHELIAL CELL,UR FEW /LPF
[2017-06-23 23:05] VITALS: BP 152/64
[2017-06-24 03:14] VITALS: BP 141/73
[2017-06-24] MEDS: PIPERACILLIN/TAZO IV Push 3.375 GM VIAL. IVP SCH ×4 (04:00→22:55)
[2017-06-24 05:39] LABS: BASO % 0 % (0-3); EOS % 1 % (0-3); HEMATOCRIT 27.3 % (36.0-47.0); HEMOGLOBIN 9.1 g/dL (12.0-15.5); LYMPH # 2.4 x10^3/uL (1.0-4.8); LYMPH % 14 % (24-48); MEAN CORPUSCULAR HEMOGLOBIN 31 pg (25-35); MEAN CORPUSCULAR HGB CONC 33 g/dL (31-37); MEAN CORPUSCULAR VOLUME 92 fL (79-100); MONO % 4 % (0-9); NEUT % 81 % (31-73); PLATELET COUNT 458 x10^3/uL (140-400); RED BLOOD COUNT 2.97 x10^6/uL (3.50-5.40); RED CELL DISTRIBUTION WIDTH 14.1 % (11.5-14.5); WHITE BLOOD COUNT 16.8 x10^3/uL (4.0-11.0)
[2017-06-24 05:54] LABS: ALBUMIN 1.6 g/dL (3.4-5.0); ALBUMIN/GLOBULIN RATIO 0.4 (1.0-1.7); CALCIUM 7.9 mg/dL (8.5-10.1); CREATININE 0.9 mg/dL (0.6-1.0); GFR 60.6; TOTAL BILIRUBIN 0.4 mg/dL (0.2-1.0); TOTAL PROTEIN 5.9 g/dL (6.4-8.2)
[2017-06-24 06:05] LABS: POTASSIUM 2.8 mmol/L (3.5-5.1)
[2017-06-24 07:00] VITALS: BP 155/75
--- NOTE | 2017-06-24 08:27 | PDOC ---
SURGICAL PROGRESS NOTE Subjective Pt reports feeling better today, yassine PO, no more loose stools, pain in suprapubic area Vital Signs Vital Signs Date Time Temp Pulse Resp B/P (MAP) Pulse Ox O2 Delivery O2 Flow Rate FiO2 06/24/17 03:14 98.0 94 18 141/73 (95) 97 Room Air 98.0 I&O Intake and Output 06/24/17 07:00 Intake Total 450 ml Output Total 290 ml Balance 160 ml Intake Oral 450 ml Stool Total 200 ml Drainage Total 90 ml # Voids 8 # Bowel Movements 19 General: Alert, Oriented X3, Cooperative, No acute distress Abdomen: Soft, Other (mild TTP suprapubic area) Labs Laboratory Tests Test 06/22/17 12:15 06/22/17 23:20 06/23/17 03:50 06/23/17 18:15 Stool Occult Blood Negative (NEG) Clostridium difficile Toxin (PCR) Positive (Negative) White Blood Count 19.3 x10^3/uL (4.0-11.0) Red Blood Count 3.12 x10^6/uL (3.50-5.40) Hemoglobin 9.2 g/dL (12.0-15.5) Hematocrit 28.7 % (36.0-47.0) Mean Corpuscular Volume 92 fL (79-100) Mean Corpuscular Hemoglobin 29 pg (25-35) Mean Corpuscular Hemoglobin Concent 32 g/dL (31-37) Red Cell Distribution Width 14.0 % (11.5-14.5) Platelet Count 445 x10^3/uL (140-400) Neutrophils (%) (Auto) 82 % (31-73) Lymphocytes (%) (Auto) 14 % (24-48) Monocytes (%) (Auto) 4 % (0-9) Eosinophils (%) (Auto) 1 % (0-3) Basophils (%) (Auto) 0 % (0-3) Neutrophils # (Auto) 15.8 x10^3uL (1.8-7.7) Lymphocytes # (Auto) 2.6 x10^3/uL (1.0-4.8) Monocytes # (Auto) 0.7 x10^3/uL (0.0-1.1) Eosinophils # (Auto) 0.1 x10^3/uL (0.0-0.7) Basophils # (Auto) 0.0 x10^3/uL (0.0-0.2) Sodium Level 140 mmol/L (136-145) Potassium Level 2.7 mmol/L (3.5-5.1) Chloride Level 108 mmol/L (98-107) Carbon Dioxide Level 20 mmol/L (21-32) Anion Gap 12 (6-14) Blood Urea Nitrogen 15 mg/dL (7-20) Creatinine 1.0 mg/dL (0.6-1.0) Estimated GFR (Cockcroft-Gault) 53.6 Glucose Level 92 mg/dL (70-99) Calcium Level 7.8 mg/dL (8.5-10.1) Urine Collection Type Unknown Urine Color Yellow Urine Clarity Clear Urine pH 6.0 Urine Specific [place] 1.015 Urine Protein Negative mg/dL (NEG-TRACE) Urine Glucose (UA) Negative mg/dL (NEG) Urine Ketones (Stick) Negative mg/dL (NEG) Urine Blood Small (NEG) Urine Nitrite Negative (NEG) Urine Bilirubin Negative (NEG) Urine Urobilinogen Dipstick 0.2 mg/dL (0.2 mg/dL) Urine Leukocyte Esterase Negative (NEG) Urine RBC 1-2 /HPF (0-2) Urine WBC 1-4 /HPF (0-4) Urine Squamous Epithelial Cells Few /LPF Urine Bacteria 0 /HPF (0-FEW) Test 06/24/17 04:22 White Blood Count 16.8 x10^3/uL (4.0-11.0) Red Blood Count 2.97 x10^6/uL (3.50-5.40) Hemoglobin 9.1 g/dL (12.0-15.5) Hematocrit 27.3 % (36.0-47.0) Mean Corpuscular Volume 92 fL (79-100) Mean Corpuscular Hemoglobin 31 pg (25-35) Mean Corpuscular Hemoglobin Concent 33 g/dL (31-37) Red Cell Distribution Width 14.1 % (11.5-14.5) Platelet Count 458 x10^3/uL (140-400) Neutrophils (%) (Auto) 81 % (31-73) Lymphocytes (%) (Auto) 14 % (24-48) Monocytes (%) (Auto) 4 % (0-9) Eosinophils (%) (Auto) 1 % (0-3) Basophils (%) (Auto) 0 % (0-3) Neutrophils # (Auto) 13.7 x10^3uL (1.8-7.7) Lymphocytes # (Auto) 2.4 x10^3/uL (1.0-4.8) Monocytes # (Auto) 0.7 x10^3/uL (0.0-1.1) Eosinophils # (Auto) 0.1 x10^3/uL (0.0-0.7) Basophils # (Auto) 0.0 x10^3/uL (0.0-0.2) Sodium Level 141 mmol/L (136-145) Potassium Level 2.8 mmol/L (3.5-5.1) Chloride Level 108 mmol/L (98-107) Carbon Dioxide Level 24 mmol/L (21-32) Anion Gap 9 (6-14) Blood Urea Nitrogen 8 mg/dL (7-20) Creatinine 0.9 mg/dL (0.6-1.0) Estimated GFR (Cockcroft-Gault) 60.6 BUN/Creatinine Ratio 9 (6-20) Glucose Level 95 mg/dL (70-99) Calcium Level 7.9 mg/dL (8.5-10.1) Total Bilirubin 0.4 mg/dL (0.2-1.0) Aspartate Amino Transf (AST/SGOT) 18 U/L (15-37) Alanine Aminotransferase (ALT/SGPT) 13 U/L (14-59) Alkaline Phosphatase 44 U/L (46-116) Total Protein 5.9 g/dL (6.4-8.2) Albumin 1.6 g/dL (3.4-5.0) Albumin/Globulin Ratio 0.4 (1.0-1.7) Laboratory Tests Test 06/23/17 18:15 06/24/17 04:22 Urine Collection Type Unknown Urine Color Yellow Urine Clarity Clear Urine pH 6.0 Urine Specific [place] 1.015 Urine Protein Negative mg/dL (NEG-TRACE) Urine Glucose (UA) Negative mg/dL (NEG) Urine Ketones (Stick) Negative mg/dL (NEG) Urine Blood Small (NEG) Urine Nitrite Negative (NEG) Urine Bilirubin Negative (NEG) Urine Urobilinogen Dipstick 0.2 mg/dL (0.2 mg/dL) Urine Leukocyte Esterase Negative (NEG) Urine RBC 1-2 /HPF (0-2) Urine WBC 1-4 /HPF (0-4) Urine Squamous Epithelial Cells Few /LPF Urine Bacteria 0 /HPF (0-FEW) White Blood Count 16.8 x10^3/uL (4.0-11.0) Red Blood Count 2.97 x10^6/uL (3.50-5.40) Hemoglobin 9.1 g/dL (12.0-15.5) Hematocrit 27.3 % (36.0-47.0) Mean Corpuscular Volume 92 fL (79-100) Mean Corpuscular Hemoglobin 31 pg (25-35) Mean Corpuscular Hemoglobin Concent 33 g/dL (31-37) Red Cell Distribution Width 14.1 % (11.5-14.5) Platelet Count 458 x10^3/uL (140-400) Neutrophils (%) (Auto) 81 % (31-73) Lymphocytes (%) (Auto) 14 % (24-48) Monocytes (%) (Auto) 4 % (0-9) Eosinophils (%) (Auto) 1 % (0-3) Basophils (%) (Auto) 0 % (0-3) Neutrophils # (Auto) 13.7 x10^3uL (1.8-7.7) Lymphocytes # (Auto) 2.4 x10^3/uL (1.0-4.8) Monocytes # (Auto) 0.7 x10^3/uL (0.0-1.1) Eosinophils # (Auto) 0.1 x10^3/uL (0.0-0.7) Basophils # (Auto) 0.0 x10^3/uL (0.0-0.2) Sodium Level 141 mmol/L (136-145) Potassium Level 2.8 mmol/L (3.5-5.1) Chloride Level 108 mmol/L (98-107) Carbon Dioxide Level 24 mmol/L (21-32) Anion Gap 9 (6-14) Blood Urea Nitrogen 8 mg/dL (7-20) Creatinine 0.9 mg/dL (0.6-1.0) Estimated GFR (Cockcroft-Gault) 60.6 BUN/Creatinine Ratio 9 (6-20) Glucose Level 95 mg/dL (70-99) Calcium Level 7.9 mg/dL (8.5-10.1) Total Bilirubin 0.4 mg/dL (0.2-1.0) Aspartate Amino Transf (AST/SGOT) 18 U/L (15-37) Alanine Aminotransferase (ALT/SGPT) 13 U/L (14-59) Alkaline Phosphatase 44 U/L (46-116) Total Protein 5.9 g/dL (6.4-8.2) Albumin 1.6 g/dL (3.4-5.0) Albumin/Globulin Ratio 0.4 (1.0-1.7) I have reviewed the following CT concerning for additional abscess and 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
[2017-06-24] MEDS: VANCOMYCIN 125 MG/2.5 ML ORAL SOLUTION. PO SCH ×4 (08:42→22:04)
[2017-06-24] MEDS: ASCORBIC ACID 500 MG TABLET PO SCH (08:43)
[2017-06-24] MEDS: POTASSIUM CHLORIDE 20 MEQ TABLET.ER. PO SCH ×3 (08:43→17:20)
[2017-06-24] MEDS: MULTIVITAMIN with MINERAL TABLET. PO SCH (08:43)
[2017-06-24] MEDS: FERROUS SULFATE 325 MG TABLET. PO SCH (08:43)
[2017-06-24] MEDS: LACTOBACILLUS RHAMNOSUS GG 1 CAPSULE. PO SCH ×3 (08:43→21:38)
[2017-06-24] MEDS: METOPROLOL SUCC 24HR ER 50 MG TAB.ER.24H. PO SCH (08:45)
--- NOTE | 2017-06-24 10:22 | PDOC ---
Infectious Disease Note Subjective Subjective Feeling discouraged. Still some loose stool Does not pass air when passing urine Mild abd tenderness since Dr. De Los Santos's exam ROS ROS GEN: Denies fevers, chills, sweats HEENT: Denies blurred vision, sore throat CV: Denies chest pain RESP: Denies shortness of air, cough GI: Denies n/v/d NEURO: Denies confusion, dizziness MSK: Denies weakness, joint pain/swelling Vital Sign Vital Signs Vital Signs Date Time Temp Pulse Resp B/P (MAP) Pulse Ox O2 Delivery O2 Flow Rate FiO2 06/24/17 08:45 96 171/80 06/24/17 03:14 98.0 18 97 Room Air 98.0 Physical Exam PHYSICAL EXAM CONSTITUTIONAL: She is very pleasant. She is cooperative. She is in no acute distress. She is laying in bed HEENT: Pupils are equal and reactive. She has normal conjunctivae. Oral cavity, oropharynx is clear. NECK: Supple with good range of motion. LUNGS: Clear to auscultation bilaterally. HEART: S1, S2. ABDOMEN: Soft, minimally distended, minimal tenderness. She has a drain placed in the right posterior area just about her buttock cleft. EXTREMITIES: No clubbing, cyanosis or gross edema. SKIN: Warm to touch. NEUROLOGIC: Nonfocal. PSYCHIATRIC: Affect is appropriate Labs Lab Laboratory Tests Test 06/23/17 18:15 06/24/17 04:22 Urine Collection Type Unknown Urine Color Yellow Urine Clarity Clear Urine pH 6.0 Urine Specific [place] 1.015 Urine Protein Negative mg/dL (NEG-TRACE) Urine Glucose (UA) Negative mg/dL (NEG) Urine Ketones (Stick) Negative mg/dL (NEG) Urine Blood Small (NEG) Urine Nitrite Negative (NEG) Urine Bilirubin Negative (NEG) Urine Urobilinogen Dipstick 0.2 mg/dL (0.2 mg/dL) Urine Leukocyte Esterase Negative (NEG) Urine RBC 1-2 /HPF (0-2) Urine WBC 1-4 /HPF (0-4) Urine Squamous Epithelial Cells Few /LPF Urine Bacteria 0 /HPF (0-FEW) White Blood Count 16.8 x10^3/uL (4.0-11.0) Red Blood Count 2.97 x10^6/uL (3.50-5.40) Hemoglobin 9.1 g/dL (12.0-15.5) Hematocrit 27.3 % (36.0-47.0) Mean Corpuscular Volume 92 fL (79-100) Mean Corpuscular Hemoglobin 31 pg (25-35) Mean Corpuscular Hemoglobin Concent 33 g/dL (31-37) Red Cell Distribution Width 14.1 % (11.5-14.5) Platelet Count 458 x10^3/uL (140-400) Neutrophils (%) (Auto) 81 % (31-73) Lymphocytes (%) (Auto) 14 % (24-48) Monocytes (%) (Auto) 4 % (0-9) Eosinophils (%) (Auto) 1 % (0-3) Basophils (%) (Auto) 0 % (0-3) Neutrophils # (Auto) 13.7 x10^3uL (1.8-7.7) Lymphocytes # (Auto) 2.4 x10^3/uL (1.0-4.8) Monocytes # (Auto) 0.7 x10^3/uL (0.0-1.1) Eosinophils # (Auto) 0.1 x10^3/uL (0.0-0.7) Basophils # (Auto) 0.0 x10^3/uL (0.0-0.2) Sodium Level 141 mmol/L (136-145) Potassium Level 2.8 mmol/L (3.5-5.1) Chloride Level 108 mmol/L (98-107) Carbon Dioxide Level 24 mmol/L (21-32) Anion Gap 9 (6-14) Blood Urea Nitrogen 8 mg/dL (7-20) Creatinine 0.9 mg/dL (0.6-1.0) Estimated GFR (Cockcroft-Gault) 60.6 BUN/Creatinine Ratio 9 (6-20) Glucose Level 95 mg/dL (70-99) Calcium Level 7.9 mg/dL (8.5-10.1) Total Bilirubin 0.4 mg/dL (0.2-1.0) Aspartate Amino Transf (AST/SGOT) 18 U/L (15-37) Alanine Aminotransferase (ALT/SGPT) 13 U/L (14-59) Alkaline Phosphatase 44 U/L (46-116) Total Protein 5.9 g/dL (6.4-8.2) Albumin 1.6 g/dL (3.4-5.0) Albumin/Globulin Ratio 0.4 (1.0-1.7) Objective Assessment Leukocytosis - better UTI - POA (06/19) Klebsiella Res to Amp/Quinolones/Bactrim Diverticular abscess - Pans Ecoli so far (06/20). ? Ovary and bladder involved with Tubo-ovarian abscess ? 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
[2017-06-24 11:00] VITALS: BP 157/77
[2017-06-24] MEDS: traMADol 50 MG TABLET PO PRN ×2 (11:03→21:38)
--- NOTE | 2017-06-24 12:11 | PDOC ---
PROGRESS NOTES Subjective CT results reviewed with pt, she is considering surgery, also discussed additional drain being placed, pain controlled except when abd being palpated, diarrhea ongoing, denies any vaginal discharge or abnormal looking urine, tolerating diet so far, potassium being replaced, no cardiac or pulmonary symptoms, strength ok, ambulating to the bathroom without assist, IV site healthy Objective Afebrile General: NAD but looks tired Heart: RRR Lungs: CTA anteriorly, no cough Abd: RLQ tenderness, no rebound Ext: no C/C/E WBC: improving but elevated Hgb: stable K+: low but being replaced Creat: stable Vital Signs Vital Signs Date Time Temp Pulse Resp B/P (MAP) Pulse Ox O2 Delivery O2 Flow Rate FiO2 06/24/17 11:03 Room Air 06/24/17 08:45 96 171/80 06/24/17 07:00 98.4 18 97 98.4 06/21/17 22:34 2.0 I & O Intake and Output 06/24/17 07:00 Intake Total 450 ml Output Total 290 ml Balance 160 ml Intake Oral 450 ml Stool Total 200 ml Drainage Total 90 ml # Voids 8 # Bowel Movements 19 Assessment and Plan 1. 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 Will ask IR to place a second drain in the meantime 2. UTI - separate bacteria from abscess per cultures 3. chronic anxiety 4. mitral valve prolapse with hx of SVT 5. diarrhea, C.diff now positive, on lactobacillus and oral vancomycin 6. hypokalemia from diarrhea, replacing IV and po 7. moderate protein malnutrition from illness, starting to advance diet, causing atelectasis and pleural fluid in lungs Problems: Zandra CUELLAR MD Jun 24, 2017 12:11
[2017-06-24 13:43] LABS: INR 1.4 (0.8-1.1); PROTHROMBIN TIME PATIENT 16.2 SEC (11.7-14.0)
--- NOTE | 2017-06-24 13:52 | PDOC2 ---
CONSULT Date of Consult Date of Consult DATE: 06/24/17 TIME: 13:47 Reason for Consult Reason for Consult: Pelvic abscess Referring Physician Referring Physician: Dr. Ulloa Identification/Chief Complaint Chief Complaint abd pain and fever Problems: Source Source: Chart review, Patient History of Present Illness Reason for Visit: 76 y/o presented with abd pain and fever. She has pelvic/abd abscess secondary to bowel perforation from diverticulitis. SHe is on IV abx and had IR place drain. She is clinically improving. Pt. stated she did not want to be transferred and wanted to continue to receive care here. Discussed CT plan of care with continued abx. Past Medical History Cardiovascular: HTN, Other (mitral valve prolapse) Pulmonary: No pertinent hx GI: Diverticulosis Past Surgical History Past Surgical History: No pertinent history Family History Family History: Other Social History ALCOHOL: none Drugs: None Lives: with Family Current Problem List Problem List Problems Medical Problems: (1) Diverticulitis large intestine Status: Acute (2) Diverticulitis of both large and small intestine with abscess without bleeding Status: Acute Current Medications Current Medications Current Medications Ondansetron HCl (Zofran) 4 mg 1X ONCE IV Last administered on 06/19/17 13:43 ; Start 06/19/17 at 13:15; Stop 06/19/17 at 13:17; Status DC Sodium Chloride 1,000 ml @ 1,000 mls/hr 1X ONCE IV Last administered on 06/19 13:43; Start 06/19/17 at 13:15; Stop 06/19/17 at 14:14; Status DC Piperacillin Sod/ Tazobactam Sod (Zosyn Per Pharmacy) 1 each PRN DAILY PRN MC SEE COMMENTS; Start 06/19/17 at 14:30; Stop 06/23/17 at 08:50; Status DC Metronidazole 100 ml @ 100 mls/hr Q12HR IV Last administered on 06/24/17 08: 44; Start 06/19/17 at 14:30; Stop 06/24/17 at 10:20; Status DC Piperacillin Sod/ Tazobactam Sod (Zosyn) 3.375 gm 1X ONCE IVP Last administered on 06/19/17 14:49; Start 06/19/17 at 15:00; Stop 06/19/17 at 15 :01; Status DC Sodium Chloride 1,000 ml @ 1,000 mls/hr 1X ONCE IV Last administered on 06/19 15:00; Start 06/19/17 at 15:00; Stop 06/19/17 at 15:59; Status DC Ondansetron HCl (Zofran) 4 mg PRN Q8HRS PRN IV NAUSEA/VOMITING; Start at 15:00; Stop 06/20/17 at 14:59; Status DC Morphine Sulfate 4 mg PRN Q2HR PRN IV PAIN Last administered on 06/20/17 00: 53; Start 06/19/17 at 15:00; Stop 06/20/17 at 14:59; Status DC Sodium Chloride 1,000 ml @ 125 mls/hr Q8H IV Last administered on 06/20/17 10:48; Start 06/19/17 at 14:58; Stop 06/20/17 at 14:57; Status DC Piperacillin Sod/ Tazobactam Sod (Zosyn) 2.25 gm Q6HRS IVP Last administered on 06/23/17 06:28; Start 06/19/17 at 22:00; Stop 06/23/17 at 08:50; Status DC Acetaminophen (Tylenol) 500 mg HS PO Last administered on 06/23/17 21:11; Start 06/20/17 at 21:00 Tramadol HCl (Ultram) 50 mg PRN Q6HRS PRN PO PAIN Last administered on 11:03; Start 06/20/17 at 09:00 Multivitamins (Thera M Plus) 1 tab DAILY PO Last administered on 06/24/17 08: 43; Start 06/20/17 at 09:00 Amitriptyline HCl (Elavil) 10 mg QHS PO Last administered on 06/23/17 21:11; Start 06/20/17 at 21:00 Metoprolol Succinate (Toprol Xl) 50 mg DAILY PO Last administered on 08:45; Start 06/20/17 at 09:00 Perphenazine (Trilafon) 2 mg QHS PO Last administered on 06/23/17 21:11; Start 06/20/17 at 21:00 Lidocaine/Sodium Bicarbonate (Buffered Lidocaine 1%) 20 ml STK-MED ONCE IJ ; Start 06/20/17 at 12:44; Stop 06/20/17 at 12:45; Status DC Fentanyl Citrate (Fentanyl 2ml Vial) 100 mcg STK-MED ONCE .ROUTE ; Start at 12:54; Stop 06/20/17 at 12:55; Status DC Midazolam HCl (Versed) 2 mg STK-MED ONCE .ROUTE ; Start 06/20/17 at 12:55; Stop 06/20/17 at 12:56; Status DC Lidocaine/Sodium Bicarbonate (Buffered Lidocaine 1%) 20 ml 1X ONCE IJ Last administered on 06/20/17 13:25; Start 06/20/17 at 13:00; Stop 06/20/17 at 13 :03; Status DC Midazolam HCl (Versed) 2 mg 1X ONCE IV Last administered on 06/20/17 13:25; Start 06/20/17 at 13:00; Stop 06/20/17 at 13:03; Status DC Fentanyl Citrate (Fentanyl 2ml Vial) 100 mcg 1X ONCE IV Last administered on 06/20/17 13:26; Start 06/20/17 at 13:00; Stop 06/20/17 at 13:03; Status DC Sodium Chloride 1,000 ml @ 125 mls/hr 1X ONCE IV ; Start 06/21/17 at 15:00; Stop 06/21/17 at 22:59; Status Cancel Sodium Chloride 1,000 ml @ 125 mls/hr Q8H IV Last administered on 06/23/17 10:01; Start 06/21/17 at 15:30; Stop 06/23/17 at 13:19; Status DC Ferrous Sulfate (Feosol) 325 mg DAILYWBKFT PO Last administered on 06/24/17 08:43; Start 06/22/17 at 17:00 Ascorbic Acid (Vitamin C) 500 mg DAILY PO Last administered on 06/24/17 08:43 ; Start 06/22/17 at 17:00 Lorazepam (Ativan) 2 mg 1X PRN PRN IV ANXIETY / AGITATION; Start 06/22/17 at 23:30; Status Cancel Diphenhydramine HCl (Benadryl) 25 mg 1X PRN PRN IVP INSOMNIA, MAY REPEAT IN 1HR ; Start 06/22/17 at 23:30; Status Cancel Acetaminophen (Acetaminophen Supp) 650 mg PRN Q6HRS PRN NE MILD PAIN / TEMP; Start 06/22/17 at 23:30; Status Cancel Potassium Chloride (Klor-Con) 40 meq 1X ONCE PO Last administered on 06:52; Start 06/23/17 at 06:45; Stop 06/23/17 at 06:46; Status DC Lactobacillus Rhamnosus (Culturelle) 1 cap TID PO Last administered on 08:43; Start 06/23/17 at 09:00 Piperacillin Sod/ Tazobactam Sod 3.375 gm/Dextrose 50 ml @ 100 mls/hr Q6HRS IV ; Start 06/23/17 at 12:00; Stop 06/23/17 at 16:12; Status DC Piperacillin Sod/ Tazobactam Sod (Zosyn) 3.375 gm Q6HRS IVP Last administered on 06/23/17 16:14; Start 06/23/17 at 12:00; Stop 06/23/17 at 16:28; Status DC Iohexol (Omnipaque 240 Mg/ml) 30 ml 1X ONCE PO ; Start 06/23/17 at 13:30; Stop 06/23/17 at 13:32; Status DC Iohexol (Omnipaque 300 Mg/ml) 60 ml 1X ONCE IV Last administered on 15:20; Start 06/23/17 at 13:30; Stop 06/23/17 at 13:32; Status DC Info (Do NOT chart on this entry -- for MONITORING) 1 each PRN DAILY PRN MC SEE COMMENTS; Start 06/23/17 at 13:45; Stop 06/25/17 at 13:44 Piperacillin Sod/ Tazobactam Sod 3.375 gm/Dextrose 50 ml @ 100 mls/hr Q6H IV Last administered on 06/23/17 16:23; Start 06/23/17 at 16:00; Stop 06/23/17 at 16:26; Status DC Piperacillin Sod/ Tazobactam Sod (Zosyn) 3.375 gm Q6H IVP Last administered on 06/24/17 10:59; Start 06/23/17 at 22:00 Sodium Chloride 1,000 ml @ 100 mls/hr Q10H IV Last administered on 06/23/17 17:51; Start 06/23/17 at 17:00; Stop 06/23/17 at 22:00; Status DC Vancomycin HCl 125 mg [id number] PO Last administered on 06/24/17 08:42; Start 06/23/17 at 18:30 Potassium Chloride/Sodium Chloride 1,000 ml @ 75 mls/hr [id number] IV Last administered on 06/24/17 00:11; Start 06/23/17 at 22:30 Potassium Chloride (Klor-Con) 20 meq TIDWMEALS PO Last administered on 12:38; Start 06/24/17 at 08:00 Active Scripts Active Tramadol Hcl 50 Mg Tablet 1 Tab PO PRN Q6HRS PRN Reported Perphen-Amitrip 2 Mg-10 Mg Tab (Perphenazine/Amitriptyline Hcl) 1 Each Tablet 1 Each PO HS Acetaminophen 500 Mg Tablet 1 Tab PO HS [Metoprolol] 50 Mg PO DAILY [[place] 210] 1 Tab PO HS PRN Centrum Silver Tablet (Multivits-Min/Fa/Lycopene/Lut) 1 Each Tablet 1 Each PO DAILY Aspirin 81 Mg Tab.chew 1 Tab PO QODAY Allergies Allergies: Coded Allergies: No Known Drug Allergies (Unverified , 02/29/16) ROS General: YES: Fatigue PSYCHOLOGICAL ROS: No: Anxiety, Behavioral Disorder, Concentration difficultie , Decreased libido, Depression, Disorientation, Hallucinations, Hostility, Irritablity, Memory difficulties, Mood Swings, Obsessive thoughts, Physical abuse, Sexual abuse, Sleep disturbances, Suicidal ideation, Other Eyes: No Blurry vision, No Decreased vision, No Double vision, No Dry eyes, No Excessive tearing, No Eye Pain, No Itchy Eyes, No Loss of vision, No Photophobia , No Scotomata, No Uses contacts, No Uses glasses, No Other HEENT: No: Heacaches, Visual Changes, Hearing change, Nasal congestion, Nasal discharge, Oral lesions, Sinus pain, Sore Throat, Epistaxis, Sneezing, Snoring, Tinnitus, Vertigo, Vocal changes, Other ENDOCRINE: No: Breast Changes, Galactorrhea, Hair Pattern Changes, Hot Flashes , Malaise/lethargy, Mood Swings, Palpitations, Polydipsia/polyuria, Skin Changes , Temperature Intolerance, Unexpected Weight Changes, Other Breast: No New/Changing Breast Lumps, No Nipple changes, No Nipple discharge, No Other Respiratory: No: Cough, Hemoptysis, Orthopnea, Pleuritic Pain, Shortness of breath, SOB with excertion, Sputum Changes, Stridor, Tachypnea, Wheezing, Other Cardiovascular: No Chest Pain, No Palpitations, No Orthopnea, No Paroxysmal Noc. Dyspnea, No Edema, No Lt Headedness, No Other Gastrointestinal: Yes Abdominal Pain, Yes Diarrhea Genitourinary: No Dysuria, No Frequency, No Incontinence, No Hematuria, No Retention, No Discharge, No Urgency, No Pain, No Flank Pain, No Other, No , No , No , No , No , No , No Musculoskeletal: No Gait Disturbance, No Joint Pain, No Joint Stiffness, No Joint Swelling, No Muscle Pain, No Muscular Weakness, No Pain In:, No Swelling In:, No Other Physical Exam General: Alert, Cooperative HEENT: Atraumatic Lungs: Clear to auscultation Heart: Regular rate Abdomen: Normal bowel sounds, Soft, No masses, Other (mild tenderness diffusely ) Psych/Mental Status: Mental status NL Vitals VITALS Vital Signs Date Time Temp Pulse Resp B/P (MAP) Pulse Ox O2 Delivery O2 Flow Rate FiO2 06/24/17 12:38 Room Air 06/24/17 11:00 98.1 88 18 157/77 (103) 96 98.1 Labs Labs Laboratory Tests Test 06/22/17 23:20 06/23/17 03:50 06/23/17 18:15 06/24/17 04:22 Clostridium difficile Toxin (PCR) Positive (Negative) White Blood Count 19.3 x10^3/uL (4.0-11.0) 16.8 x10^3/uL (4.0-11.0) Red Blood Count 3.12 x10^6/uL (3.50-5.40) 2.97 x10^6/uL (3.50-5.40) Hemoglobin 9.2 g/dL (12.0-15.5) 9.1 g/dL (12.0-15.5) Hematocrit 28.7 % (36.0-47.0) 27.3 % (36.0-47.0) Mean Corpuscular Volume 92 fL (79-100) 92 fL (79-100) Mean Corpuscular Hemoglobin 29 pg (25-35) 31 pg (25-35) Mean Corpuscular Hemoglobin Concent 32 g/dL (31-37) 33 g/dL (31-37) Red Cell Distribution Width 14.0 % (11.5-14.5) 14.1 % (11.5-14.5) Platelet Count 445 x10^3/uL (140-400) 458 x10^3/uL (140-400) Neutrophils (%) (Auto) 82 % (31-73) 81 % (31-73) Lymphocytes (%) (Auto) 14 % (24-48) 14 % (24-48) Monocytes (%) (Auto) 4 % (0-9) 4 % (0-9) Eosinophils (%) (Auto) 1 % (0-3) 1 % (0-3) Basophils (%) (Auto) 0 % (0-3) 0 % (0-3) Neutrophils # (Auto) 15.8 x10^3uL (1.8-7.7) 13.7 x10^3uL (1.8-7.7) Lymphocytes # (Auto) 2.6 x10^3/uL (1.0-4.8) 2.4 x10^3/uL (1.0-4.8) Monocytes # (Auto) 0.7 x10^3/uL (0.0-1.1) 0.7 x10^3/uL (0.0-1.1) Eosinophils # (Auto) 0.1 x10^3/uL (0.0-0.7) 0.1 x10^3/uL (0.0-0.7) Basophils # (Auto) 0.0 x10^3/uL (0.0-0.2) 0.0 x10^3/uL (0.0-0.2) Sodium Level 140 mmol/L (136-145) 141 mmol/L (136-145) Potassium Level 2.7 mmol/L (3.5-5.1) 2.8 mmol/L (3.5-5.1) Chloride Level 108 mmol/L (98-107) 108 mmol/L (98-107) Carbon Dioxide Level 20 mmol/L (21-32) 24 mmol/L (21-32) Anion Gap 12 (6-14) 9 (6-14) Blood Urea Nitrogen 15 mg/dL (7-20) 8 mg/dL (7-20) Creatinine 1.0 mg/dL (0.6-1.0) 0.9 mg/dL (0.6-1.0) Estimated GFR (Cockcroft-Gault) 53.6 60.6 Glucose Level 92 mg/dL (70-99) 95 mg/dL (70-99) Calcium Level 7.8 mg/dL (8.5-10.1) 7.9 mg/dL (8.5-10.1) Urine Collection Type Unknown Urine Color Yellow Urine Clarity Clear Urine pH 6.0 Urine Specific [place] 1.015 Urine Protein Negative mg/dL (NEG-TRACE) Urine Glucose (UA) Negative mg/dL (NEG) Urine Ketones (Stick) Negative mg/dL (NEG) Urine Blood Small (NEG) Urine Nitrite Negative (NEG) Urine Bilirubin Negative (NEG) Urine Urobilinogen Dipstick 0.2 mg/dL (0.2 mg/dL) Urine Leukocyte Esterase Negative (NEG) Urine RBC 1-2 /HPF (0-2) Urine WBC 1-4 /HPF (0-4) Urine Squamous Epithelial Cells Few /LPF Urine Bacteria 0 /HPF (0-FEW) BUN/Creatinine Ratio 9 (6-20) Total Bilirubin 0.4 mg/dL (0.2-1.0) Aspartate Amino Transf (AST/SGOT) 18 U/L (15-37) Alanine Aminotransferase (ALT/SGPT) 13 U/L (14-59) Alkaline Phosphatase 44 U/L (46-116) Total Protein 5.9 g/dL (6.4-8.2) Albumin 1.6 g/dL (3.4-5.0) Albumin/Globulin Ratio 0.4 (1.0-1.7) Test 06/24/17 13:10 Prothrombin Time 16.2 SEC (11.7-14.0) Prothromb Time International Ratio 1.4 (0.8-1.1) Laboratory Tests Test 06/23/17 18:15 06/24/17 04:22 06/24/17 13:10 Urine Collection Type Unknown Urine Color Yellow Urine Clarity Clear Urine pH 6.0 Urine Specific [place] 1.015 Urine Protein Negative mg/dL (NEG-TRACE) Urine Glucose (UA) Negative mg/dL (NEG) Urine Ketones (Stick) Negative mg/dL (NEG) Urine Blood Small (NEG) Urine Nitrite Negative (NEG) Urine Bilirubin Negative (NEG) Urine Urobilinogen Dipstick 0.2 mg/dL (0.2 mg/dL) Urine Leukocyte Esterase Negative (NEG) Urine RBC 1-2 /HPF (0-2) Urine WBC 1-4 /HPF (0-4) Urine Squamous Epithelial Cells Few /LPF Urine Bacteria 0 /HPF (0-FEW) White Blood Count 16.8 x10^3/uL (4.0-11.0) Red Blood Count 2.97 x10^6/uL (3.50-5.40) Hemoglobin 9.1 g/dL (12.0-15.5) Hematocrit 27.3 % (36.0-47.0) Mean Corpuscular Volume 92 fL (79-100) Mean Corpuscular Hemoglobin 31 pg (25-35) Mean Corpuscular Hemoglobin Concent 33 g/dL (31-37) Red Cell Distribution Width 14.1 % (11.5-14.5) Platelet Count 458 x10^3/uL (140-400) Neutrophils (%) (Auto) 81 % (31-73) Lymphocytes (%) (Auto) 14 % (24-48) Monocytes (%) (Auto) 4 % (0-9) Eosinophils (%) (Auto) 1 % (0-3) Basophils (%) (Auto) 0 % (0-3) Neutrophils # (Auto) 13.7 x10^3uL (1.8-7.7) Lymphocytes # (Auto) 2.4 x10^3/uL (1.0-4.8) Monocytes # (Auto) 0.7 x10^3/uL (0.0-1.1) Eosinophils # (Auto) 0.1 x10^3/uL (0.0-0.7) Basophils # (Auto) 0.0 x10^3/uL (0.0-0.2) Sodium Level 141 mmol/L (136-145) Potassium Level 2.8 mmol/L (3.5-5.1) Chloride Level 108 mmol/L (98-107) Carbon Dioxide Level 24 mmol/L (21-32) Anion Gap 9 (6-14) Blood Urea Nitrogen 8 mg/dL (7-20) Creatinine 0.9 mg/dL (0.6-1.0) Estimated GFR (Cockcroft-Gault) 60.6 BUN/Creatinine Ratio 9 (6-20) Glucose Level 95 mg/dL (70-99) Calcium Level 7.9 mg/dL (8.5-10.1) Total Bilirubin 0.4 mg/dL (0.2-1.0) Aspartate Amino Transf (AST/SGOT) 18 U/L (15-37) Alanine Aminotransferase (ALT/SGPT) 13 U/L (14-59) Alkaline Phosphatase 44 U/L (46-116) Total Protein 5.9 g/dL (6.4-8.2) Albumin 1.6 g/dL (3.4-5.0) Albumin/Globulin Ratio 0.4 (1.0-1.7) Prothrombin Time 16.2 SEC (11.7-14.0) Prothromb Time International Ratio 1.4 (0.8-1.1) Assessment/Plan Assessment/Plan A: Pelvic/Abd abscess: improving P: Agree with current plan for continued abx. If general surgery decides on surgery I will be available to help if hysterectomy needed. Thank you for consult. RANJAN HOOD Jr, MD Jun 24, 2017 13:52
[2017-06-24] MEDS ORDERED: MIDAZOLAM HCL/PF 2 MG/2 ML VIAL. ONE (14:24)
[2017-06-24] MEDS ORDERED: fentaNYL PF VIAL 100 MCG/2 ML VIAL ONE (14:24)
[2017-06-24] MEDS ORDERED: LIDOCAINE 1% / SOD BICARB 8.4% 20 ML VIAL. IJ ONE (14:25)
[2017-06-24 15:00] VITALS: BP 154/74
--- NOTE | 2017-06-24 15:23 | PDOC ---
Provider Note Provider Note IR NOTE Mrs Iglesias is s/p drainage of a very large pelvic abscess, with associate smaller collections in the bilateral adnexa and gas in the bladder. 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 CT was repeated yesterday showing increase in collection centered in the left adnexa, abutting the sigmoid colon now more typical of abscess. Separation of this collection from the adnexa or colon is not possible by CT. We discussed draining the left adnexal collection. I told her this is most likely a temporizing measure, and that surgery will most likely be needed for definitive treatment. I also explained that further injury to the uterus/adnexa or colon is possible. Possible surgery has been addressed by her other providers who told her that a transfer to another facility may be needed to meet her surgical needs. She would like time to think about this and asks to plan drainage for Tuesday, unless she decides to pursue surgery. Clinically she in improving following drainage of the largest collection, and antibiotic therapy. Will plan on Tuesday. TALA VENTURA MD Jun 24, 2017 15:22
[2017-06-24 20:05] VITALS: BP 148/70
[2017-06-24] MEDS: ACETAMINOPHEN 500 MG TABLET PO SCH (21:38)
[2017-06-24] MEDS: PERPHENAZINE 2 MG TABLET PO SCH (21:38)
[2017-06-24] MEDS: AMITRIPTYLINE HCL 10 MG TABLET. PO SCH (21:38)
[2017-06-24 23:00] VITALS: BP 139/63
[2017-06-25 03:00] VITALS: BP 151/63
[2017-06-25] MEDS: PIPERACILLIN/TAZO IV Push 3.375 GM VIAL. IVP SCH ×4 (04:24→22:13)
[2017-06-25 05:57] LABS: BASO % 0 % (0-3); EOS % 1 % (0-3); HEMATOCRIT 27.3 % (36.0-47.0); HEMOGLOBIN 9.1 g/dL (12.0-15.5); LYMPH # 2.9 x10^3/uL (1.0-4.8); LYMPH % 16 % (24-48); MEAN CORPUSCULAR HEMOGLOBIN 30 pg (25-35); MEAN CORPUSCULAR HGB CONC 33 g/dL (31-37); MEAN CORPUSCULAR VOLUME 92 fL (79-100); MONO % 5 % (0-9); NEUT % 79 % (31-73); PLATELET COUNT 457 x10^3/uL (140-400); RED BLOOD COUNT 2.98 x10^6/uL (3.50-5.40); RED CELL DISTRIBUTION WIDTH 13.8 % (11.5-14.5)
[2017-06-25 06:23] LABS: CALCIUM 8.1 mg/dL (8.5-10.1); GFR 53.6; POTASSIUM 3.3 mmol/L (3.5-5.1)
[2017-06-25 07:59] LABS: PLT ESTIMATE INCREASED (ADEQUATE); TOXIC GRANULATION PRESENT
[2017-06-25 08:00] VITALS: BP 177/82
--- NOTE | 2017-06-25 08:36 | PDOC ---
MINGO CERVANTES TECHNICAL SUPPORT CONSULTANT 06/25/17 0836: SURGICAL PROGRESS NOTE Subjective sitting up some pain plans for drain on tuesday Vital Signs Vital Signs Date Time Temp Pulse Resp B/P (MAP) Pulse Ox O2 Delivery O2 Flow Rate FiO2 06/25/17 08:00 98.1 93 18 177/82 (113) 93 Room Air 98.1 I&O Intake and Output 06/25/17 06:59 Intake Total 1473 ml Output Total 1230 ml Balance 243 ml Intake Oral 220 ml IV Total 1253 ml Output Urine Total 1200 ml Drainage Total 30 ml # Voids 3 # Bowel Movements 2 General: Alert, Oriented X3, Cooperative, No acute distress Abdomen: Soft, Other (tender lower abdomen, drain in place) Labs Laboratory Tests Test 06/23/17 18:15 06/24/17 04:22 06/24/17 13:10 06/25/17 05:15 Urine Collection Type Unknown Urine Color Yellow Urine Clarity Clear Urine pH 6.0 Urine Specific [place] 1.015 Urine Protein Negative mg/dL (NEG-TRACE) Urine Glucose (UA) Negative mg/dL (NEG) Urine Ketones (Stick) Negative mg/dL (NEG) Urine Blood Small (NEG) Urine Nitrite Negative (NEG) Urine Bilirubin Negative (NEG) Urine Urobilinogen Dipstick 0.2 mg/dL (0.2 mg/dL) Urine Leukocyte Esterase Negative (NEG) Urine RBC 1-2 /HPF (0-2) Urine WBC 1-4 /HPF (0-4) Urine Squamous Epithelial Cells Few /LPF Urine Bacteria 0 /HPF (0-FEW) White Blood Count 16.8 x10^3/uL (4.0-11.0) 19.0 x10^3/uL (4.0-11.0) Red Blood Count 2.97 x10^6/uL (3.50-5.40) 2.98 x10^6/uL (3.50-5.40) Hemoglobin 9.1 g/dL (12.0-15.5) 9.1 g/dL (12.0-15.5) Hematocrit 27.3 % (36.0-47.0) 27.3 % (36.0-47.0) Mean Corpuscular Volume 92 fL (79-100) 92 fL (79-100) Mean Corpuscular Hemoglobin 31 pg (25-35) 30 pg (25-35) Mean Corpuscular Hemoglobin Concent 33 g/dL (31-37) 33 g/dL (31-37) Red Cell Distribution Width 14.1 % (11.5-14.5) 13.8 % (11.5-14.5) Platelet Count 458 x10^3/uL (140-400) 457 x10^3/uL (140-400) Neutrophils (%) (Auto) 81 % (31-73) 79 % (31-73) Lymphocytes (%) (Auto) 14 % (24-48) 16 % (24-48) Monocytes (%) (Auto) 4 % (0-9) 5 % (0-9) Eosinophils (%) (Auto) 1 % (0-3) 1 % (0-3) Basophils (%) (Auto) 0 % (0-3) 0 % (0-3) Neutrophils # (Auto) 13.7 x10^3uL (1.8-7.7) 14.9 x10^3uL (1.8-7.7) Lymphocytes # (Auto) 2.4 x10^3/uL (1.0-4.8) 2.9 x10^3/uL (1.0-4.8) Monocytes # (Auto) 0.7 x10^3/uL (0.0-1.1) 0.9 x10^3/uL (0.0-1.1) Eosinophils # (Auto) 0.1 x10^3/uL (0.0-0.7) 0.1 x10^3/uL (0.0-0.7) Basophils # (Auto) 0.0 x10^3/uL (0.0-0.2) 0.0 x10^3/uL (0.0-0.2) Sodium Level 141 mmol/L (136-145) 140 mmol/L (136-145) Potassium Level 2.8 mmol/L (3.5-5.1) 3.3 mmol/L (3.5-5.1) Chloride Level 108 mmol/L (98-107) 107 mmol/L (98-107) Carbon Dioxide Level 24 mmol/L (21-32) 24 mmol/L (21-32) Anion Gap 9 (6-14) 9 (6-14) Blood Urea Nitrogen 8 mg/dL (7-20) 6 mg/dL (7-20) Creatinine 0.9 mg/dL (0.6-1.0) 1.0 mg/dL (0.6-1.0) Estimated GFR (Cockcroft-Gault) 60.6 53.6 BUN/Creatinine Ratio 9 (6-20) Glucose Level 95 mg/dL (70-99) 95 mg/dL (70-99) Calcium Level 7.9 mg/dL (8.5-10.1) 8.1 mg/dL (8.5-10.1) Total Bilirubin 0.4 mg/dL (0.2-1.0) Aspartate Amino Transf (AST/SGOT) 18 U/L (15-37) Alanine Aminotransferase (ALT/SGPT) 13 U/L (14-59) Alkaline Phosphatase 44 U/L (46-116) Total Protein 5.9 g/dL (6.4-8.2) Albumin 1.6 g/dL (3.4-5.0) Albumin/Globulin Ratio 0.4 (1.0-1.7) Prothrombin Time 16.2 SEC (11.7-14.0) Prothromb Time International Ratio 1.4 (0.8-1.1) Segmented Neutrophils % 84 % (35-66) Lymphocytes % 12 % (24-48) Monocytes % 4 % (0-10) Toxic Granulation Present Platelet Estimate Increased (ADEQUATE) Laboratory Tests Test 06/24/17 13:10 06/25/17 05:15 Prothrombin Time 16.2 SEC (11.7-14.0) Prothromb Time International Ratio 1.4 (0.8-1.1) White Blood Count 19.0 x10^3/uL (4.0-11.0) Red Blood Count 2.98 x10^6/uL (3.50-5.40) Hemoglobin 9.1 g/dL (12.0-15.5) Hematocrit 27.3 % (36.0-47.0) Mean Corpuscular Volume 92 fL (79-100) Mean Corpuscular Hemoglobin 30 pg (25-35) Mean Corpuscular Hemoglobin Concent 33 g/dL (31-37) Red Cell Distribution Width 13.8 % (11.5-14.5) Platelet Count 457 x10^3/uL (140-400) Neutrophils (%) (Auto) 79 % (31-73) Lymphocytes (%) (Auto) 16 % (24-48) Monocytes (%) (Auto) 5 % (0-9) Eosinophils (%) (Auto) 1 % (0-3) Basophils (%) (Auto) 0 % (0-3) Neutrophils # (Auto) 14.9 x10^3uL (1.8-7.7) Lymphocytes # (Auto) 2.9 x10^3/uL (1.0-4.8) Monocytes # (Auto) 0.9 x10^3/uL (0.0-1.1) Eosinophils # (Auto) 0.1 x10^3/uL (0.0-0.7) Basophils # (Auto) 0.0 x10^3/uL (0.0-0.2) Segmented Neutrophils % 84 % (35-66) Lymphocytes % 12 % (24-48) Monocytes % 4 % (0-10) Toxic Granulation Present Platelet Estimate Increased (ADEQUATE) Sodium Level 140 mmol/L (136-145) Potassium Level 3.3 mmol/L (3.5-5.1) Chloride Level 107 mmol/L (98-107) Carbon Dioxide Level 24 mmol/L (21-32) Anion Gap 9 (6-14) Blood Urea Nitrogen 6 mg/dL (7-20) Creatinine 1.0 mg/dL (0.6-1.0) Estimated GFR (Cockcroft-Gault) 53.6 Glucose Level 95 mg/dL (70-99) Calcium Level 8.1 mg/dL (8.5-10.1) Problem List Problems Medical Problems: (1) Diverticulitis large intestine Status: Acute (2) Diverticulitis of both large and small intestine with abscess without bleeding Status: Acute Assessment/Plan plans for additional drain on tuesday will have dr nohemi WARD Problems: ZEYNEP GARCIA MD 06/25/17 1104: SURGICAL PROGRESS NOTE Assessment/Plan Pt seen and examined. Agree with Ms. Cervantes's note Pt with c/o persistent suprapubic pain mild TTP, DAWN min serous output agree with plans for new drain Problems: MINGO CERVANTES TECHNICAL SUPPORT CONSULTANT Jun 25, 2017 08:36 ZEYNEP GARCIA MD Jun 25, 2017 11:04
[2017-06-25] MEDS: FERROUS SULFATE 325 MG TABLET. PO SCH (08:58)
[2017-06-25] MEDS: MULTIVITAMIN with MINERAL TABLET. PO SCH (08:58)
[2017-06-25] MEDS: POTASSIUM CHLORIDE 20 MEQ TABLET.ER. PO SCH ×3 (08:58→17:47)
[2017-06-25] MEDS: LACTOBACILLUS RHAMNOSUS GG 1 CAPSULE. PO SCH ×3 (08:58→21:21)
[2017-06-25] MEDS: ASCORBIC ACID 500 MG TABLET PO SCH (08:59)
[2017-06-25] MEDS: METOPROLOL SUCC 24HR ER 50 MG TAB.ER.24H. PO SCH (08:59)
[2017-06-25] MEDS: traMADol 50 MG TABLET PO PRN ×2 (08:59→17:48)
[2017-06-25] MEDS: VANCOMYCIN 125 MG/2.5 ML ORAL SOLUTION. PO SCH ×4 (09:02→21:22)
[2017-06-25 11:30] VITALS: BP 131/68
--- NOTE | 2017-06-25 12:35 | PDOC ---
Infectious Disease Note Subjective Subjective + abdominal pain Diarrhea settling down Tolerating clear liquids ROS ROS GEN: Denies fevers, chills, sweats CV: Denies chest pain RESP: Denies shortness of air, cough GI: Denies n/v Vital Sign Vital Signs Vital Signs Date Time Temp Pulse Resp B/P (MAP) Pulse Ox O2 Delivery O2 Flow Rate FiO2 06/25/17 11:30 98.8 85 16 131/68 (89) 96 Room Air 98.8 Physical Exam PHYSICAL EXAM GENERAL: Propped up in bed, NAD LUNGS: Clear HEART: S1S2 ABD: Soft, BS active, NT to light palpation. Posterior DAWN drain about buttocks intact EXT: No edema, no cyanosis SPACE AND MISSILE DEFENSE OPERATIONS: Alert, 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, no focal neurologic deficit SKIN: No rash IV: ok Labs Lab Laboratory Tests Test 06/24/17 13:10 06/25/17 05:15 Prothrombin Time 16.2 SEC (11.7-14.0) Prothromb Time International Ratio 1.4 (0.8-1.1) White Blood Count 19.0 x10^3/uL (4.0-11.0) Red Blood Count 2.98 x10^6/uL (3.50-5.40) Hemoglobin 9.1 g/dL (12.0-15.5) Hematocrit 27.3 % (36.0-47.0) Mean Corpuscular Volume 92 fL (79-100) Mean Corpuscular Hemoglobin 30 pg (25-35) Mean Corpuscular Hemoglobin Concent 33 g/dL (31-37) Red Cell Distribution Width 13.8 % (11.5-14.5) Platelet Count 457 x10^3/uL (140-400) Neutrophils (%) (Auto) 79 % (31-73) Lymphocytes (%) (Auto) 16 % (24-48) Monocytes (%) (Auto) 5 % (0-9) Eosinophils (%) (Auto) 1 % (0-3) Basophils (%) (Auto) 0 % (0-3) Neutrophils # (Auto) 14.9 x10^3uL (1.8-7.7) Lymphocytes # (Auto) 2.9 x10^3/uL (1.0-4.8) Monocytes # (Auto) 0.9 x10^3/uL (0.0-1.1) Eosinophils # (Auto) 0.1 x10^3/uL (0.0-0.7) Basophils # (Auto) 0.0 x10^3/uL (0.0-0.2) Segmented Neutrophils % 84 % (35-66) Lymphocytes % 12 % (24-48) Monocytes % 4 % (0-10) Toxic Granulation Present Platelet Estimate Increased (ADEQUATE) Sodium Level 140 mmol/L (136-145) Potassium Level 3.3 mmol/L (3.5-5.1) Chloride Level 107 mmol/L (98-107) Carbon Dioxide Level 24 mmol/L (21-32) Anion Gap 9 (6-14) Blood Urea Nitrogen 6 mg/dL (7-20) Creatinine 1.0 mg/dL (0.6-1.0) Estimated GFR (Cockcroft-Gault) 53.6 Glucose Level 95 mg/dL (70-99) Calcium Level 8.1 mg/dL (8.5-10.1) Micro ANAEROBIC-AEROBIC CULTURE Preliminary Preliminary report ANAEROBIC RES 1 Preliminary Bacteroides species, B. fragilis group AEROBIC RES 1 Final Escherichia coli Antibiotic RSLT#1 Amoxicillin/Clavulanic Acid S Ampicillin S Cefepime S Ceftriaxone S Cefuroxime S Ciprofloxacin S Ertapenem S Gentamicin S Imipenem S Levofloxacin S Piperacillin S Tetracycline S Tobramycin S Trimethoprim/Sulfa S Objective Assessment Leukocytosis UTI - POA (06/19) Klebsiella Res to Amp/Quinolones/Bactrim Diverticular abscess - Pans E. coli so far (06/20). ? Ovary and bladder involved with Tubo-ovarian abscess ? CV fistula - s/p drain, 06/20 Loose stool -C-diff + 06/22 (not paged) primary responded Perf viscous - declined surgery H/o SVT Plan Plan of Care Cont Zosyn Po Vanc Cont probiotics F/u labs Await drainage by IR on Tuesday Needs PLATING FOREMAN eval but may need transfer to [facility] or for surgical intervention as likely need urology also Pt seen and examined d/w CAR PARK ATTENDANT agree with above A and P BLANCHE DUMONT APRN Jun 25, 2017 12:35 SUSIE RUSSELL MD Jun 25, 2017 17:46
--- NOTE | 2017-06-25 13:02 | PDOC ---
SUBJECTIVE Subjective Pt doing okay today. Pain level about the same. /10 before getting pain medication earlier. Eating well with no nausea or vomiting. Has not had a BM yet today. OBJECTIVE Vital Signs Vital Signs Date Time Temp Pulse Resp B/P (MAP) Pulse Ox O2 Delivery O2 Flow Rate FiO2 06/25/17 11:30 98.8 85 16 131/68 (89) 96 Room Air 98.8 06/25/17 10:00 Room Air 06/25/17 08:59 93 177/82 06/25/17 08:59 Room Air 06/25/17 08:00 98.1 93 18 177/82 (113) 93 Room Air 98.1 06/25/17 03:00 98.8 91 16 151/63 (92) 96 Room Air 98.8 06/24/17 23:00 97.9 88 18 139/63 (88) 97 Room Air 97.9 06/24/17 22:40 14 06/24/17 21:38 16 Room Air 06/24/17 20:15 Room Air 06/24/17 20:05 98.1 90 16 148/70 (96) 97 Room Air 98.1 06/24/17 19:00 Room Air 06/24/17 15:00 98.8 91 18 154/74 (100) 96 Room Air 98.8 I & O Intake and Output 06/25/17 06:59 Intake Total 1473 ml Output Total 1230 ml Balance 243 ml Intake Oral 220 ml IV Total 1253 ml Output Urine Total 1200 ml Drainage Total 30 ml # Voids 3 # Bowel Movements 2 PHYSICAL EXAM Physical Exam GEN: NAD, AOx3 HEENT: MMM, EOMI, no scleral icterus/injection Cardiac: RRR, no M/R/G Lungs: CTAB, regular breathing rate and effort Abd: soft, non distended, TTP suprapubic and in lower abdomen Ext: 2+ pitting edema LE bilaterally, no erythema Nuero: CN2-12 GI ASSESSMENT/PLAN Assessment/Plan Pt is a 76yo CF admitted with sepsis from diverticular abscess 1. 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 F/ U CT imaging suggesting abscess fistula with uterus, broad ligament, right ovary and possibly bladder, ID, surgery following, will consult MEDICAL STAFF MANAGER, urology not available yet apparently, may need to transfer if she changes her mind about surgery. 2nd drain to be placed Tuesday. WBC increased from 16.8 to 19 this am. Remains afebrile. CTM. Pt currently receiving Zosyn 2. UTI - separate bacteria from abscess per cultures 3. chronic anxiety- pt continued on Amitriptyline 4. mitral valve prolapse with hx of SVT 5. diarrhea, C.diff now positive, on lactobacillus and oral vancomycin 6. hypokalemia from diarrhea, replacing IV and po 7. moderate protein malnutrition from illness, starting to advance diet, causing atelectasis and pleural fluid in lungs 8. HTN- pt continued on Metoprolol 50mg 9. Anemia- stable. CTM 10. Thrombocytosis- reactive 2/2 infection, CTM Problems: COMMENT Lab Laboratory Tests Test 06/24/17 13:10 06/25/17 05:15 Prothrombin Time 16.2 SEC (11.7-14.0) Prothromb Time International Ratio 1.4 (0.8-1.1) White Blood Count 19.0 x10^3/uL (4.0-11.0) Red Blood Count 2.98 x10^6/uL (3.50-5.40) Hemoglobin 9.1 g/dL (12.0-15.5) Hematocrit 27.3 % (36.0-47.0) Mean Corpuscular Volume 92 fL (79-100) Mean Corpuscular Hemoglobin 30 pg (25-35) Mean Corpuscular Hemoglobin Concent 33 g/dL (31-37) Red Cell Distribution Width 13.8 % (11.5-14.5) Platelet Count 457 x10^3/uL (140-400) Neutrophils (%) (Auto) 79 % (31-73) Lymphocytes (%) (Auto) 16 % (24-48) Monocytes (%) (Auto) 5 % (0-9) Eosinophils (%) (Auto) 1 % (0-3) Basophils (%) (Auto) 0 % (0-3) Neutrophils # (Auto) 14.9 x10^3uL (1.8-7.7) Lymphocytes # (Auto) 2.9 x10^3/uL (1.0-4.8) Monocytes # (Auto) 0.9 x10^3/uL (0.0-1.1) Eosinophils # (Auto) 0.1 x10^3/uL (0.0-0.7) Basophils # (Auto) 0.0 x10^3/uL (0.0-0.2) Segmented Neutrophils % 84 % (35-66) Lymphocytes % 12 % (24-48) Monocytes % 4 % (0-10) Toxic Granulation Present Platelet Estimate Increased (ADEQUATE) Sodium Level 140 mmol/L (136-145) Potassium Level 3.3 mmol/L (3.5-5.1) Chloride Level 107 mmol/L (98-107) Carbon Dioxide Level 24 mmol/L (21-32) Anion Gap 9 (6-14) Blood Urea Nitrogen 6 mg/dL (7-20) Creatinine 1.0 mg/dL (0.6-1.0) Estimated GFR (Cockcroft-Gault) 53.6 Glucose Level 95 mg/dL (70-99) Calcium Level 8.1 mg/dL (8.5-10.1) CHANI MARROQUIN MD Jun 25, 2017 13:02
[2017-06-25 15:55] VITALS: BP 154/75
[2017-06-25 19:30] VITALS: BP 154/78
[2017-06-25] MEDS: AMITRIPTYLINE HCL 10 MG TABLET. PO SCH (21:21)
[2017-06-25] MEDS: ACETAMINOPHEN 500 MG TABLET PO SCH (21:21)
[2017-06-25] MEDS: PERPHENAZINE 2 MG TABLET PO SCH (21:22)
[2017-06-25 23:18] VITALS: BP 146/81
[2017-06-26 03:04] VITALS: BP 145/78
[2017-06-26] MEDS: PIPERACILLIN/TAZO IV Push 3.375 GM VIAL. IVP SCH ×4 (04:06→22:02)
[2017-06-26 07:54] VITALS: BP 159/75
--- NOTE | 2017-06-26 08:47 | PDOC ---
MINGO CERVANTES [employer] APPRAISER 06/26/17 0846: SURGICAL PROGRESS NOTE Subjective up to commode loose frequent stools Vital Signs Vital Signs Date Time Temp Pulse Resp B/P (MAP) Pulse Ox O2 Delivery O2 Flow Rate FiO2 06/26/17 07:20 Room Air 06/26/17 03:04 98.5 82 18 145/78 (100) 97 98.5 I&O Intake and Output 06/26/17 07:00 Intake Total 2360 ml Output Total 2110 ml Balance 250 ml Intake Oral 560 ml IV Total 900 ml Other 900 ml Output Urine Total 2100 ml Drainage Total 10 ml General: Alert, Oriented X3, Cooperative, No acute distress Abdomen: Soft, Other (tender, drain without drainage ) Labs Laboratory Tests Test 06/24/17 13:10 06/25/17 05:15 Prothrombin Time 16.2 SEC (11.7-14.0) Prothromb Time International Ratio 1.4 (0.8-1.1) White Blood Count 19.0 x10^3/uL (4.0-11.0) Red Blood Count 2.98 x10^6/uL (3.50-5.40) Hemoglobin 9.1 g/dL (12.0-15.5) Hematocrit 27.3 % (36.0-47.0) Mean Corpuscular Volume 92 fL (79-100) Mean Corpuscular Hemoglobin 30 pg (25-35) Mean Corpuscular Hemoglobin Concent 33 g/dL (31-37) Red Cell Distribution Width 13.8 % (11.5-14.5) Platelet Count 457 x10^3/uL (140-400) Neutrophils (%) (Auto) 79 % (31-73) Lymphocytes (%) (Auto) 16 % (24-48) Monocytes (%) (Auto) 5 % (0-9) Eosinophils (%) (Auto) 1 % (0-3) Basophils (%) (Auto) 0 % (0-3) Neutrophils # (Auto) 14.9 x10^3uL (1.8-7.7) Lymphocytes # (Auto) 2.9 x10^3/uL (1.0-4.8) Monocytes # (Auto) 0.9 x10^3/uL (0.0-1.1) Eosinophils # (Auto) 0.1 x10^3/uL (0.0-0.7) Basophils # (Auto) 0.0 x10^3/uL (0.0-0.2) Segmented Neutrophils % 84 % (35-66) Lymphocytes % 12 % (24-48) Monocytes % 4 % (0-10) Toxic Granulation Present Platelet Estimate Increased (ADEQUATE) Sodium Level 140 mmol/L (136-145) Potassium Level 3.3 mmol/L (3.5-5.1) Chloride Level 107 mmol/L (98-107) Carbon Dioxide Level 24 mmol/L (21-32) Anion Gap 9 (6-14) Blood Urea Nitrogen 6 mg/dL (7-20) Creatinine 1.0 mg/dL (0.6-1.0) Estimated GFR (Cockcroft-Gault) 53.6 Glucose Level 95 mg/dL (70-99) Calcium Level 8.1 mg/dL (8.5-10.1) Problem List Problems Medical Problems: (1) Diverticulitis large intestine Status: Acute (2) Diverticulitis of both large and small intestine with abscess without bleeding Status: Acute Assessment/Plan complicated diverticulitis, c diff plans for additional drain on tuesday Problems: ZEYNEP GARCIA MD 06/26/17 1419: SURGICAL PROGRESS NOTE Assessment/Plan Pt seen and examined. Agree with Ms. Cervantes's note Pt with c/o abd pain after stool abd soft, mild TTP drain in AM Problems: MINGO CERVANTES APRN Jun 26, 2017 08:46 ZEYNEP GARCIA MD Jun 26, 2017 14:19
[2017-06-26] MEDS: VANCOMYCIN 125 MG/2.5 ML ORAL SOLUTION. PO SCH ×4 (08:51→21:15)
[2017-06-26] MEDS: MULTIVITAMIN with MINERAL TABLET. PO SCH (08:52)
[2017-06-26] MEDS: LACTOBACILLUS RHAMNOSUS GG 1 CAPSULE. PO SCH ×3 (08:52→21:14)
[2017-06-26] MEDS: traMADol 50 MG TABLET PO PRN ×2 (08:53→15:15)
[2017-06-26] MEDS: POTASSIUM CHLORIDE 20 MEQ TABLET.ER. PO SCH ×3 (08:53→17:28)
[2017-06-26] MEDS: FERROUS SULFATE 325 MG TABLET. PO SCH (08:53)
[2017-06-26] MEDS: ASCORBIC ACID 500 MG TABLET PO SCH (08:53)
[2017-06-26] MEDS: METOPROLOL SUCC 24HR ER 50 MG TAB.ER.24H. PO SCH (08:54)
--- NOTE | 2017-06-26 10:16 | PDOC ---
SUBJECTIVE Subjective Pt was doing okay until having a bout of diarrhea this morning. Abdominal pain has increased. Did not have BM yesterday. Large BM today that was mostly clear fluid. Otherwise doing well. OBJECTIVE Vital Signs Vital Signs Date Time Temp Pulse Resp B/P (MAP) Pulse Ox O2 Delivery O2 Flow Rate FiO2 06/26/17 08:54 94 159/75 06/26/17 08:53 97 Room Air 06/26/17 07:54 98.8 94 16 159/75 (103) 97 Room Air 98.8 06/26/17 07:20 Room Air 06/26/17 03:04 98.5 82 18 145/78 (100) 97 Room Air 98.5 06/25/17 23:18 98.6 87 18 146/81 (102) 97 Room Air 98.6 06/25/17 20:05 Room Air 06/25/17 19:30 98.7 96 18 154/78 (103) 98 Room Air 98.7 06/25/17 18:50 95 Room Air 06/25/17 17:48 95 Room Air 06/25/17 15:55 97.9 87 18 154/75 (101) 95 97.9 06/25/17 11:30 98.8 85 16 131/68 (89) 96 Room Air 98.8 I & O Intake and Output 06/26/17 07:00 Intake Total 2360 ml Output Total 2110 ml Balance 250 ml Intake Oral 560 ml IV Total 900 ml Other 900 ml Output Urine Total 2100 ml Drainage Total 10 ml PHYSICAL EXAM Physical Exam GEN: NAD, AOx3 HEENT: MMM, EOMI, no scleral icterus/injection Cardiac: RRR, no M/R/G Lungs: CTAB, regular breathing rate and effort Abd: soft, non distended, TTP suprapubic and in lower abdomen Ext: 2+ pitting edema LE bilaterally, no erythema Nuero: CN2-12 GI ASSESSMENT/PLAN Assessment/Plan Pt is a 76yo CF admitted with sepsis from diverticular abscess 1. 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 F/ U CT imaging suggesting abscess fistula with uterus, broad ligament, right ovary and possibly bladder, ID, surgery, PULL OVER MACHINE OPERATOR following, urology not available yet apparently, may need to transfer if she changes her mind about surgery. 2nd drain to be placed Tuesday. WBC increased from 16.8 to 19 yesterday, CBC today pending. Remains afebrile. CTM. Pt currently receiving Zosyn 2. UTI - separate bacteria from abscess per cultures 3. chronic anxiety- pt continued on Amitriptyline 4. mitral valve prolapse with hx of SVT 5. diarrhea, C.diff positive, on lactobacillus and oral vancomycin 6. hypokalemia from diarrhea, replacing IV and po 7. moderate protein malnutrition from illness, starting to advance diet, causing atelectasis and pleural fluid in lungs 8. HTN- moderately controlled. Pt currently receiving Metoprolol 50mg, will start low dose HCTZ 9. Anemia- stable. CTM 10. Thrombocytosis- reactive 2/2 infection, CTM Problems: CHANI MARROQUIN MD Jun 26, 2017 10:16
[2017-06-26 11:47] VITALS: BP 144/68
[2017-06-26] MEDS: hydroCHLOROthiazide 12.5 MG CAPSULE PO SCH (12:25)
[2017-06-26 12:56] LABS: BASO % 0 % (0-3); EOS % 0 % (0-3); HEMATOCRIT 29.2 % (36.0-47.0); HEMOGLOBIN 9.3 g/dL (12.0-15.5); LYMPH # 2.4 x10^3/uL (1.0-4.8); LYMPH % 11 % (24-48); MEAN CORPUSCULAR HEMOGLOBIN 29 pg (25-35); MEAN CORPUSCULAR HGB CONC 32 g/dL (31-37); MEAN CORPUSCULAR VOLUME 92 fL (79-100); MONO % 4 % (0-9); NEUT % 84 % (31-73); PLATELET COUNT 489 x10^3/uL (140-400); RED BLOOD COUNT 3.16 x10^6/uL (3.50-5.40); RED CELL DISTRIBUTION WIDTH 13.9 % (11.5-14.5); WHITE BLOOD COUNT 21.8 x10^3/uL (4.0-11.0)
--- NOTE | 2017-06-26 14:35 | PDOC ---
Infectious Disease Note Subjective Subjective Patient is worried about her whom she cares for. Her two sons are alternating time to care for him while she is in hospital. + lower abdominal pain - stable + diarrhea after eating earlier, now hesitate to eat again ROS ROS GEN: Denies fevers, chills, sweats CV: Denies chest pain RESP: Denies shortness of air, cough GI: Denies n/v Vital Sign Vital Signs Vital Signs Date Time Temp Pulse Resp B/P (MAP) Pulse Ox O2 Delivery O2 Flow Rate FiO2 06/26/17 11:47 98.6 84 22 144/68 (93) 99 Room Air 98.6 Physical Exam PHYSICAL EXAM GENERAL: Propped up in bed, NAD LUNGS: Clear HEART: S1S2 ABD: Soft, BS active, NT to light palpation. Posterior DAWN drain about buttocks intact EXT: No edema, no cyanosis MEDICAL BILLING SUPERVISOR: Alert, 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, no focal neurologic deficit SKIN: No rash IV: ok Labs Lab Laboratory Tests Test 06/26/17 12:30 White Blood Count 21.8 x10^3/uL (4.0-11.0) Red Blood Count 3.16 x10^6/uL (3.50-5.40) Hemoglobin 9.3 g/dL (12.0-15.5) Hematocrit 29.2 % (36.0-47.0) Mean Corpuscular Volume 92 fL (79-100) Mean Corpuscular Hemoglobin 29 pg (25-35) Mean Corpuscular Hemoglobin Concent 32 g/dL (31-37) Red Cell Distribution Width 13.9 % (11.5-14.5) Platelet Count 489 x10^3/uL (140-400) Neutrophils (%) (Auto) 84 % (31-73) Lymphocytes (%) (Auto) 11 % (24-48) Monocytes (%) (Auto) 4 % (0-9) Eosinophils (%) (Auto) 0 % (0-3) Basophils (%) (Auto) 0 % (0-3) Neutrophils # (Auto) 18.3 x10^3uL (1.8-7.7) Lymphocytes # (Auto) 2.4 x10^3/uL (1.0-4.8) Monocytes # (Auto) 0.9 x10^3/uL (0.0-1.1) Eosinophils # (Auto) 0.1 x10^3/uL (0.0-0.7) Basophils # (Auto) 0.0 x10^3/uL (0.0-0.2) Micro ANAEROBIC-AEROBIC CULTURE Preliminary Preliminary report ANAEROBIC RES 1 Preliminary Bacteroides species, B. fragilis group AEROBIC RES 1 Final Escherichia coli Antibiotic RSLT#1 Amoxicillin/Clavulanic Acid S Ampicillin S Cefepime S Ceftriaxone S Cefuroxime S Ciprofloxacin S Ertapenem S Gentamicin S Imipenem S Levofloxacin S Piperacillin S Tetracycline S Tobramycin S Trimethoprim/Sulfa S Objective Assessment Leukocytosis - trending up UTI - POA (06/19) Klebsiella Res to Amp/Quinolones/Bactrim Diverticular abscess - Pans E. coli and bacteroides (06/20). ? Ovary and bladder involved with Tubo-ovarian abscess ? CV fistula - s/p drain, 06/20 Loose stool -C-diff + 06/22 (not paged) primary responded Perf viscous - declined surgery H/o SVT Plan Plan of Care Cont Zosyn Po Vanc Cont probiotics F/u labs Await drainage by IR on Tuesday Needs JEWELRY BEARING MAKER eval but may need transfer to [facility] or for surgical intervention as likely need urology also PT SEEN ,EXAMINED ,D/W COURT BAILIFF CONTINUE SAME Pt wants to wait for surgical intervention at this time due to her family needs we d/w her about potential complications for the above BLANCHE DUMONT APRN Jun 26, 2017 14:35 SUSIE RUSSELL MD Jun 26, 2017 18:35
[2017-06-26 15:00] VITALS: BP 167/80
[2017-06-26 19:00] VITALS: BP 152/69
[2017-06-26] MEDS: AMITRIPTYLINE HCL 10 MG TABLET. PO SCH (21:14)
[2017-06-26] MEDS: PERPHENAZINE 2 MG TABLET PO SCH (21:15)
[2017-06-26] MEDS: ACETAMINOPHEN 500 MG TABLET PO SCH (21:15)
[2017-06-26 23:32] VITALS: BP 132/68
[2017-06-27] VITALS (11 sets, daily range): BP systolic 115–181; BP diastolic 56–90
[2017-06-27] MEDS: PIPERACILLIN/TAZO IV Push 3.375 GM VIAL. IVP SCH ×4 (04:01→21:58)
[2017-06-27 05:12] LABS: BASO % 0 % (0-3); EOS % 1 % (0-3); HEMATOCRIT 29.8 % (36.0-47.0); HEMOGLOBIN 9.5 g/dL (12.0-15.5); LYMPH # 3.2 x10^3/uL (1.0-4.8); LYMPH % 16 % (24-48); MEAN CORPUSCULAR HEMOGLOBIN 29 pg (25-35); MEAN CORPUSCULAR HGB CONC 32 g/dL (31-37); MEAN CORPUSCULAR VOLUME 92 fL (79-100); MONO % 5 % (0-9); NEUT % 78 % (31-73); PLATELET COUNT 536 x10^3/uL (140-400); RED BLOOD COUNT 3.23 x10^6/uL (3.50-5.40); WHITE BLOOD COUNT 20.2 x10^3/uL (4.0-11.0)
[2017-06-27 05:42] LABS: CALCIUM 8.8 mg/dL (8.5-10.1); CREATININE 1.1 mg/dL (0.6-1.0)
[2017-06-27 05:43] LABS: POTASSIUM 5.2 mmol/L (3.5-5.1)
[2017-06-27] MEDS: POTASSIUM CHLORIDE 20 MEQ TABLET.ER. PO SCH ×3 (08:00→16:41)
[2017-06-27] MEDS: FERROUS SULFATE 325 MG TABLET. PO SCH (08:00)
[2017-06-27] MEDS: ASCORBIC ACID 500 MG TABLET PO SCH (09:00)
[2017-06-27] MEDS: hydroCHLOROthiazide 12.5 MG CAPSULE PO SCH (09:00)
[2017-06-27] MEDS: MULTIVITAMIN with MINERAL TABLET. PO SCH (09:00)
[2017-06-27] MEDS: LACTOBACILLUS RHAMNOSUS GG 1 CAPSULE. PO SCH ×3 (09:00→21:58)
[2017-06-27] MEDS: VANCOMYCIN 125 MG/2.5 ML ORAL SOLUTION. PO SCH ×4 (09:15→21:58)
[2017-06-27] MEDS: METOPROLOL SUCC 24HR ER 50 MG TAB.ER.24H. PO SCH (09:15)
[2017-06-27] MEDS: traMADol 50 MG TABLET PO PRN ×3 (09:20→22:53)
--- NOTE | 2017-06-27 09:23 | PDOC ---
SURGICAL PROGRESS NOTE Subjective ongoing pain diarrhea plans for drain today Vital Signs Vital Signs Date Time Temp Pulse Resp B/P (MAP) Pulse Ox O2 Delivery O2 Flow Rate FiO2 06/27/17 07:50 98.2 94 18 159/74 (102) 97 Room Air 98.2 I&O Intake and Output 06/27/17 06:59 Intake Total 2856 ml Output Total 2350 ml Balance 506 ml Intake Oral 1056 ml IV Total 900 ml Other 900 ml Output Urine Total 2300 ml Drainage Total 50 ml # Bowel Movements 2 General: Alert, Oriented X3, Cooperative, No acute distress Abdomen: Soft, Other (tender lower abdomen, drain purulent ) Labs Laboratory Tests Test 06/26/17 12:30 06/27/17 04:05 White Blood Count 21.8 x10^3/uL (4.0-11.0) 20.2 x10^3/uL (4.0-11.0) Red Blood Count 3.16 x10^6/uL (3.50-5.40) 3.23 x10^6/uL (3.50-5.40) Hemoglobin 9.3 g/dL (12.0-15.5) 9.5 g/dL (12.0-15.5) Hematocrit 29.2 % (36.0-47.0) 29.8 % (36.0-47.0) Mean Corpuscular Volume 92 fL (79-100) 92 fL (79-100) Mean Corpuscular Hemoglobin 29 pg (25-35) 29 pg (25-35) Mean Corpuscular Hemoglobin Concent 32 g/dL (31-37) 32 g/dL (31-37) Red Cell Distribution Width 13.9 % (11.5-14.5) 14.0 % (11.5-14.5) Platelet Count 489 x10^3/uL (140-400) 536 x10^3/uL (140-400) Neutrophils (%) (Auto) 84 % (31-73) 78 % (31-73) Lymphocytes (%) (Auto) 11 % (24-48) 16 % (24-48) Monocytes (%) (Auto) 4 % (0-9) 5 % (0-9) Eosinophils (%) (Auto) 0 % (0-3) 1 % (0-3) Basophils (%) (Auto) 0 % (0-3) 0 % (0-3) Neutrophils # (Auto) 18.3 x10^3uL (1.8-7.7) 15.8 x10^3uL (1.8-7.7) Lymphocytes # (Auto) 2.4 x10^3/uL (1.0-4.8) 3.2 x10^3/uL (1.0-4.8) Monocytes # (Auto) 0.9 x10^3/uL (0.0-1.1) 1.1 x10^3/uL (0.0-1.1) Eosinophils # (Auto) 0.1 x10^3/uL (0.0-0.7) 0.2 x10^3/uL (0.0-0.7) Basophils # (Auto) 0.0 x10^3/uL (0.0-0.2) 0.0 x10^3/uL (0.0-0.2) Sodium Level 138 mmol/L (136-145) Potassium Level 5.2 mmol/L (3.5-5.1) Chloride Level 104 mmol/L (98-107) Carbon Dioxide Level 28 mmol/L (21-32) Anion Gap 6 (6-14) Blood Urea Nitrogen 5 mg/dL (7-20) Creatinine 1.1 mg/dL (0.6-1.0) Estimated GFR (Cockcroft-Gault) 48.0 Glucose Level 97 mg/dL (70-99) Calcium Level 8.8 mg/dL (8.5-10.1) Laboratory Tests Test 06/26/17 12:30 06/27/17 04:05 White Blood Count 21.8 x10^3/uL (4.0-11.0) 20.2 x10^3/uL (4.0-11.0) Red Blood Count 3.16 x10^6/uL (3.50-5.40) 3.23 x10^6/uL (3.50-5.40) Hemoglobin 9.3 g/dL (12.0-15.5) 9.5 g/dL (12.0-15.5) Hematocrit 29.2 % (36.0-47.0) 29.8 % (36.0-47.0) Mean Corpuscular Volume 92 fL (79-100) 92 fL (79-100) Mean Corpuscular Hemoglobin 29 pg (25-35) 29 pg (25-35) Mean Corpuscular Hemoglobin Concent 32 g/dL (31-37) 32 g/dL (31-37) Red Cell Distribution Width 13.9 % (11.5-14.5) 14.0 % (11.5-14.5) Platelet Count 489 x10^3/uL (140-400) 536 x10^3/uL (140-400) Neutrophils (%) (Auto) 84 % (31-73) 78 % (31-73) Lymphocytes (%) (Auto) 11 % (24-48) 16 % (24-48) Monocytes (%) (Auto) 4 % (0-9) 5 % (0-9) Eosinophils (%) (Auto) 0 % (0-3) 1 % (0-3) Basophils (%) (Auto) 0 % (0-3) 0 % (0-3) Neutrophils # (Auto) 18.3 x10^3uL (1.8-7.7) 15.8 x10^3uL (1.8-7.7) Lymphocytes # (Auto) 2.4 x10^3/uL (1.0-4.8) 3.2 x10^3/uL (1.0-4.8) Monocytes # (Auto) 0.9 x10^3/uL (0.0-1.1) 1.1 x10^3/uL (0.0-1.1) Eosinophils # (Auto) 0.1 x10^3/uL (0.0-0.7) 0.2 x10^3/uL (0.0-0.7) Basophils # (Auto) 0.0 x10^3/uL (0.0-0.2) 0.0 x10^3/uL (0.0-0.2) Sodium Level 138 mmol/L (136-145) Potassium Level 5.2 mmol/L (3.5-5.1) Chloride Level 104 mmol/L (98-107) Carbon Dioxide Level 28 mmol/L (21-32) Anion Gap 6 (6-14) Blood Urea Nitrogen 5 mg/dL (7-20) Creatinine 1.1 mg/dL (0.6-1.0) Estimated GFR (Cockcroft-Gault) 48.0 Glucose Level 97 mg/dL (70-99) Calcium Level 8.8 mg/dL (8.5-10.1) Problem List Problems Medical Problems: (1) Diverticulitis large intestine Status: Acute (2) Diverticulitis of both large and small intestine with abscess without bleeding Status: Acute Assessment/Plan complicated diverticulitis, c diff plans for additional drain today Problems: MINGO CERVANTES TIGHTENING MACHINE OPERATOR Jun 27, 2017 09:23
--- NOTE | 2017-06-27 09:28 | PDOC ---
Infectious Disease Note Subjective Subjective pt feeling ok, abd pain ++ ROS ROS GEN: Denies fevers, chills, sweats HEENT: Denies blurred vision, sore throat CV: Denies chest pain RESP: Denies shortness of air, cough GI: Denies n/v/d NEURO: Denies confusion, dizziness MSK: Denies weakness, joint pain/swelling Vital Sign Vital Signs Vital Signs Date Time Temp Pulse Resp B/P (MAP) Pulse Ox O2 Delivery O2 Flow Rate FiO2 06/27/17 07:50 98.2 94 18 159/74 (102) 97 Room Air 98.2 Physical Exam PHYSICAL EXAM GENERAL: NAD, Alert HEENT: PERRL, OC/OP NECK: Supple, no JVD, no LN LUNGS: Clear HEART: S1S2, no gallop, no murmur ABD: Soft, Wood Type Cutter, no organomegaly, no rebound EXT: No edema, no cyanosis ENERGY CONSERVATION SPECIALIST: Alert, 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, no focal neurologic deficit SKIN: No rash IV: ok Labs Lab Laboratory Tests Test 06/26/17 12:30 06/27/17 04:05 White Blood Count 21.8 x10^3/uL (4.0-11.0) 20.2 x10^3/uL (4.0-11.0) Red Blood Count 3.16 x10^6/uL (3.50-5.40) 3.23 x10^6/uL (3.50-5.40) Hemoglobin 9.3 g/dL (12.0-15.5) 9.5 g/dL (12.0-15.5) Hematocrit 29.2 % (36.0-47.0) 29.8 % (36.0-47.0) Mean Corpuscular Volume 92 fL (79-100) 92 fL (79-100) Mean Corpuscular Hemoglobin 29 pg (25-35) 29 pg (25-35) Mean Corpuscular Hemoglobin Concent 32 g/dL (31-37) 32 g/dL (31-37) Red Cell Distribution Width 13.9 % (11.5-14.5) 14.0 % (11.5-14.5) Platelet Count 489 x10^3/uL (140-400) 536 x10^3/uL (140-400) Neutrophils (%) (Auto) 84 % (31-73) 78 % (31-73) Lymphocytes (%) (Auto) 11 % (24-48) 16 % (24-48) Monocytes (%) (Auto) 4 % (0-9) 5 % (0-9) Eosinophils (%) (Auto) 0 % (0-3) 1 % (0-3) Basophils (%) (Auto) 0 % (0-3) 0 % (0-3) Neutrophils # (Auto) 18.3 x10^3uL (1.8-7.7) 15.8 x10^3uL (1.8-7.7) Lymphocytes # (Auto) 2.4 x10^3/uL (1.0-4.8) 3.2 x10^3/uL (1.0-4.8) Monocytes # (Auto) 0.9 x10^3/uL (0.0-1.1) 1.1 x10^3/uL (0.0-1.1) Eosinophils # (Auto) 0.1 x10^3/uL (0.0-0.7) 0.2 x10^3/uL (0.0-0.7) Basophils # (Auto) 0.0 x10^3/uL (0.0-0.2) 0.0 x10^3/uL (0.0-0.2) Sodium Level 138 mmol/L (136-145) Potassium Level 5.2 mmol/L (3.5-5.1) Chloride Level 104 mmol/L (98-107) Carbon Dioxide Level 28 mmol/L (21-32) Anion Gap 6 (6-14) Blood Urea Nitrogen 5 mg/dL (7-20) Creatinine 1.1 mg/dL (0.6-1.0) Estimated GFR (Cockcroft-Gault) 48.0 Glucose Level 97 mg/dL (70-99) Calcium Level 8.8 mg/dL (8.5-10.1) Objective Assessment Leukocytosis - trending up UTI - POA (06/19) Klebsiella Res to Amp/Quinolones/Bactrim Diverticular abscess - Pans E. coli and bacteroides (06/20). ? Ovary and bladder involved with Tubo-ovarian abscess ? CV fistula - s/p drain, 06/20 Loose stool -C-diff + 06/22 (not paged) primary responded Perf viscous - declined surgery H/o SVT Plan Plan of Care Cont Zosyn Po Vanc Cont probiotics F/u labs Await drainage by IR today likely will need surgery with diverting colostomy, d/w pt , she is going to think about it JAM RUSSELL MD Jun 27, 2017 09:28
[2017-06-27] MEDS ORDERED: LIDOCAINE 1% / SOD BICARB 8.4% 20 ML VIAL. IJ ONE ×2 (12:15→12:45)
[2017-06-27] MEDS ORDERED: FLUMAZENIL 0.5 MG/5 ML VIAL. IV ONE (12:24)
[2017-06-27] MEDS ORDERED: MIDAZOLAM HCL/PF 5 MG/5 ML VIAL. ONE (12:24)
[2017-06-27] MEDS ORDERED: fentaNYL PF VIAL 250 MCG/5 ML VIAL ONE (12:24)
[2017-06-27] MEDS ORDERED: NALOXONE 0.4 MG/ML VIAL. ONE (12:24)
[2017-06-27] MEDS ORDERED: MIDAZOLAM HCL/PF 5 MG/5 ML VIAL. IV ONE (12:45)
[2017-06-27] MEDS ORDERED: fentaNYL PF VIAL 250 MCG/5 ML VIAL IV ONE (12:45)
--- NOTE | 2017-06-27 15:27 | RAD ---
CT-guided drainage of left pelvic, perirectal abscess. 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 The risks and benefits of the procedure were discussed the patient. This includes bleeding, infection, pain, and damage to hollow visceral structures including adnexal structures, the distal large bowel, and bladder. Informed consent was obtained. A timeout procedure was performed. The patient was placed on the CT scanner in the prone position. The posterior pelvis was prepped and draped using maximum standard barrier technique. 1% lidocaine without epinephrine was administered for local anesthesia. Under intermittent CT guidance 7 gauge needle was advanced into the collection using a left transgluteal approach. Once this was confirmed by CT a guidewire was advanced into the collection and confirmed by CT. Over wire, following dilatation, 10 [place] pigtail drainage catheter was advanced into the collection.. Material was freely aspirated. Samples of this material sent for Gram stain and culture. The catheter was connected to DAWN suction bulb. A sterile dressing was applied. No immediate complications were identified. The procedures performed under conscious sedation including continuous cardiopulmonary monitoring via dedicated sedation nurse. Sedation time: 30 minutes Impression: CT-guided drainage of left sided perirectal abscess PQRS Compliance Statement: One or more of the following individualized dose reduction techniques were utilized for this examination: 1. Automated exposure control 2. Adjustment of the mA and/or kV according to patient size 3. Use of iterative reconstruction technique
[2017-06-27] MEDS: IV NORMAL SALINE 1000ML BAG 1,000 ML IV SCH (18:00)
--- NOTE | 2017-06-27 18:20 | PDOC ---
PROGRESS NOTES Subjective She had second pelvic drain placed today, WBC still elevated but afebrile, stools have slowed to only 4 today but still watery, she is still hesitant about surgery Objective Afebrile General: pain controlled Heart: RRR Lungs: CTAB, normal respiratory effort Abd: RLQ tenderness Ext: no C/C/E skin: no rash WBC: 20.2 Hgb: 9.5 K+: 5.2 Creat: 1.1 Vital Signs Vital Signs Date Time Temp Pulse Resp B/P (MAP) Pulse Ox O2 Delivery O2 Flow Rate FiO2 06/27/17 17:45 99 Room Air 06/27/17 15:00 100.2 97 18 128/60 (82) 100.2 06/27/17 12:55 2.0 I & O Intake and Output 06/27/17 07:00 Intake Total 2856 ml Output Total 2350 ml Balance 506 ml Intake Oral 1056 ml IV Total 900 ml Other 900 ml Output Urine Total 2300 ml Drainage Total 50 ml # Bowel Movements 2 Assessment and Plan 1. Sepsis from diverticular abscess from perforated diverticulum, s/p IR drain placement, she refused surgery,IR has just placed a second drain, culture growing E.coli and B.frag 2. UTI - separate bacteria from abscess per cultures 3. chronic anxiety 4. mitral valve prolapse with hx of SVT 5. diarrhea, C.diff now positive, on lactobacillus and oral vancomycin, stool volume slowing but still watery 6. hypokalemia from diarrhea, over-replaced, stop PO and change backe to NS, recheck in am 7. moderate protein malnutrition from illness, starting to advance diet, causing atelectasis and pleural fluid in lungs Problems: Zandra CUELLAR MD Jun 27, 2017 18:20
[2017-06-27] MEDS: AMITRIPTYLINE HCL 10 MG TABLET. PO SCH (21:58)
[2017-06-27] MEDS: PERPHENAZINE 2 MG TABLET PO SCH (21:58)
[2017-06-27] MEDS: ACETAMINOPHEN 500 MG TABLET PO SCH (21:58)
[2017-06-28 03:00] VITALS: BP 126/56
[2017-06-28] MEDS: IV NORMAL SALINE 1000ML BAG 1,000 ML IV SCH (04:28)
[2017-06-28] MEDS: PIPERACILLIN/TAZO IV Push 3.375 GM VIAL. IVP SCH ×4 (04:28→22:59)
[2017-06-28] MEDS: traMADol 50 MG TABLET PO PRN ×3 (04:45→18:05)
[2017-06-28 05:05] LABS: BASO # 0.1 x10^3/uL (0.0-0.2); BASO % 0 % (0-3); EOS % 0 % (0-3); HEMOGLOBIN 8.2 g/dL (12.0-15.5); LYMPH # 2.8 x10^3/uL (1.0-4.8); LYMPH % 12 % (24-48); MEAN CORPUSCULAR HEMOGLOBIN 30 pg (25-35); MEAN CORPUSCULAR HGB CONC 33 g/dL (31-37); MEAN CORPUSCULAR VOLUME 92 fL (79-100); MONO % 4 % (0-9); NEUT % 84 % (31-73); PLATELET COUNT 489 x10^3/uL (140-400); RED BLOOD COUNT 2.71 x10^6/uL (3.50-5.40); RED CELL DISTRIBUTION WIDTH 13.7 % (11.5-14.5); WHITE BLOOD COUNT 24.2 x10^3/uL (4.0-11.0)
[2017-06-28 05:37] LABS: CALCIUM 8.3 mg/dL (8.5-10.1); CREATININE 1.2 mg/dL (0.6-1.0); GFR 43.4; POTASSIUM 3.7 mmol/L (3.5-5.1)
[2017-06-28 07:00] VITALS: BP 115/53
[2017-06-28] MEDS: LACTOBACILLUS RHAMNOSUS GG 1 CAPSULE. PO SCH ×3 (10:23→21:49)
[2017-06-28] MEDS: FERROUS SULFATE 325 MG TABLET. PO SCH (10:23)
[2017-06-28] MEDS: MULTIVITAMIN with MINERAL TABLET. PO SCH (10:23)
[2017-06-28] MEDS: METOPROLOL SUCC 24HR ER 50 MG TAB.ER.24H. PO SCH (10:23)
[2017-06-28] MEDS: ASCORBIC ACID 500 MG TABLET PO SCH (10:24)
[2017-06-28] MEDS: VANCOMYCIN 125 MG/2.5 ML ORAL SOLUTION. PO SCH ×4 (10:24→21:50)
[2017-06-28] MEDS: hydroCHLOROthiazide 12.5 MG CAPSULE PO SCH (10:24)
--- NOTE | 2017-06-28 10:26 | PDOC ---
Infectious Disease Note Subjective Subjective diarrhea ++ ROS ROS GEN: Denies fevers, chills, sweats HEENT: Denies blurred vision, sore throat CV: Denies chest pain RESP: Denies shortness of air, cough GI: Denies n/v/d NEURO: Denies confusion, dizziness MSK: Denies weakness, joint pain/swelling Vital Sign Vital Signs Vital Signs Date Time Temp Pulse Resp B/P (MAP) Pulse Ox O2 Delivery O2 Flow Rate FiO2 06/28/17 10:23 71 126/56 06/28/17 06:09 Room Air 06/28/17 03:00 97.9 18 96 97.9 06/27/17 12:55 2.0 Physical Exam PHYSICAL EXAM GENERAL: NAD, Alert HEENT: PERRL, OC/OP NECK: Supple, no JVD, no LN LUNGS: Clear HEART: S1S2, no gallop, no murmur ABD: Soft, Tender, no organomegaly, no rebound EXT: No edema, no cyanosis 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, 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, no focal neurologic deficit SKIN: No rash IV: ok Labs Lab Laboratory Tests Test 06/28/17 04:45 White Blood Count 24.2 x10^3/uL (4.0-11.0) Red Blood Count 2.71 x10^6/uL (3.50-5.40) Hemoglobin 8.2 g/dL (12.0-15.5) Hematocrit 25.0 % (36.0-47.0) Mean Corpuscular Volume 92 fL (79-100) Mean Corpuscular Hemoglobin 30 pg (25-35) Mean Corpuscular Hemoglobin Concent 33 g/dL (31-37) Red Cell Distribution Width 13.7 % (11.5-14.5) Platelet Count 489 x10^3/uL (140-400) Neutrophils (%) (Auto) 84 % (31-73) Lymphocytes (%) (Auto) 12 % (24-48) Monocytes (%) (Auto) 4 % (0-9) Eosinophils (%) (Auto) 0 % (0-3) Basophils (%) (Auto) 0 % (0-3) Neutrophils # (Auto) 20.4 x10^3uL (1.8-7.7) Lymphocytes # (Auto) 2.8 x10^3/uL (1.0-4.8) Monocytes # (Auto) 0.9 x10^3/uL (0.0-1.1) Eosinophils # (Auto) 0.1 x10^3/uL (0.0-0.7) Basophils # (Auto) 0.1 x10^3/uL (0.0-0.2) Sodium Level 139 mmol/L (136-145) Potassium Level 3.7 mmol/L (3.5-5.1) Chloride Level 104 mmol/L (98-107) Carbon Dioxide Level 28 mmol/L (21-32) Anion Gap 7 (6-14) Blood Urea Nitrogen 7 mg/dL (7-20) Creatinine 1.2 mg/dL (0.6-1.0) Estimated GFR (Cockcroft-Gault) 43.4 Glucose Level 88 mg/dL (70-99) Calcium Level 8.3 mg/dL (8.5-10.1) Objective Assessment Leukocytosis - trending up UTI - POA (06/19) Klebsiella Res to Amp/Quinolones/Bactrim Diverticular abscess - Pans E. coli and bacteroides (06/20). ? Ovary and bladder involved with Tubo-ovarian abscess ? CV fistula - s/p drain, 06/20 Loose stool -C-diff + 06/22 (not paged) primary responded Perf viscous - declined surgery H/o SVT Plan Plan of Care Cont Zosyn Po Vanc Cont probiotics F/u labs Await drainage by IR done likely will need surgery with diverting colostomy, d/w pt , she is going to think about it JAM RUSSELL MD Jun 28, 2017 10:26
--- NOTE | 2017-06-28 10:58 | PDOC ---
MINGO CERVANTES [employer] 06/28/17 1058: SURGICAL PROGRESS NOTE Subjective pain unchanged diarrhea Vital Signs Vital Signs Date Time Temp Pulse Resp B/P (MAP) Pulse Ox O2 Delivery O2 Flow Rate FiO2 06/28/17 10:23 71 126/56 06/28/17 06:09 Room Air 06/28/17 03:00 97.9 18 96 97.9 06/27/17 12:55 2.0 I&O Intake and Output 06/28/17 07:00 Intake Total 1336 ml Output Total 125 ml Balance 1211 ml IV Total 1336 ml Drainage Total 125 ml # Voids 6 # Bowel Movements 2 General: Alert, Oriented X3, Cooperative, No acute distress Abdomen: Soft, Other (drains in place, purulent) Labs Laboratory Tests Test 06/26/17 12:30 06/27/17 04:05 06/28/17 04:45 White Blood Count 21.8 x10^3/uL (4.0-11.0) 20.2 x10^3/uL (4.0-11.0) 24.2 x10^3/uL (4.0-11.0) Red Blood Count 3.16 x10^6/uL (3.50-5.40) 3.23 x10^6/uL (3.50-5.40) 2.71 x10^6/uL (3.50-5.40) Hemoglobin 9.3 g/dL (12.0-15.5) 9.5 g/dL (12.0-15.5) 8.2 g/dL (12.0-15.5) Hematocrit 29.2 % (36.0-47.0) 29.8 % (36.0-47.0) 25.0 % (36.0-47.0) Mean Corpuscular Volume 92 fL (79-100) 92 fL (79-100) 92 fL (79-100) Mean Corpuscular Hemoglobin 29 pg (25-35) 29 pg (25-35) 30 pg (25-35) Mean Corpuscular Hemoglobin Concent 32 g/dL (31-37) 32 g/dL (31-37) 33 g/dL (31-37) Red Cell Distribution Width 13.9 % (11.5-14.5) 14.0 % (11.5-14.5) 13.7 % (11.5-14.5) Platelet Count 489 x10^3/uL (140-400) 536 x10^3/uL (140-400) 489 x10^3/uL (140-400) Neutrophils (%) (Auto) 84 % (31-73) 78 % (31-73) 84 % (31-73) Lymphocytes (%) (Auto) 11 % (24-48) 16 % (24-48) 12 % (24-48) Monocytes (%) (Auto) 4 % (0-9) 5 % (0-9) 4 % (0-9) Eosinophils (%) (Auto) 0 % (0-3) 1 % (0-3) 0 % (0-3) Basophils (%) (Auto) 0 % (0-3) 0 % (0-3) 0 % (0-3) Neutrophils # (Auto) 18.3 x10^3uL (1.8-7.7) 15.8 x10^3uL (1.8-7.7) 20.4 x10^3uL (1.8-7.7) Lymphocytes # (Auto) 2.4 x10^3/uL (1.0-4.8) 3.2 x10^3/uL (1.0-4.8) 2.8 x10^3/uL (1.0-4.8) Monocytes # (Auto) 0.9 x10^3/uL (0.0-1.1) 1.1 x10^3/uL (0.0-1.1) 0.9 x10^3/uL (0.0-1.1) Eosinophils # (Auto) 0.1 x10^3/uL (0.0-0.7) 0.2 x10^3/uL (0.0-0.7) 0.1 x10^3/uL (0.0-0.7) Basophils # (Auto) 0.0 x10^3/uL (0.0-0.2) 0.0 x10^3/uL (0.0-0.2) 0.1 x10^3/uL (0.0-0.2) Sodium Level 138 mmol/L (136-145) 139 mmol/L (136-145) Potassium Level 5.2 mmol/L (3.5-5.1) 3.7 mmol/L (3.5-5.1) Chloride Level 104 mmol/L (98-107) 104 mmol/L (98-107) Carbon Dioxide Level 28 mmol/L (21-32) 28 mmol/L (21-32) Anion Gap 6 (6-14) 7 (6-14) Blood Urea Nitrogen 5 mg/dL (7-20) 7 mg/dL (7-20) Creatinine 1.1 mg/dL (0.6-1.0) 1.2 mg/dL (0.6-1.0) Estimated GFR (Cockcroft-Gault) 48.0 43.4 Glucose Level 97 mg/dL (70-99) 88 mg/dL (70-99) Calcium Level 8.8 mg/dL (8.5-10.1) 8.3 mg/dL (8.5-10.1) Laboratory Tests Test 06/28/17 04:45 White Blood Count 24.2 x10^3/uL (4.0-11.0) Red Blood Count 2.71 x10^6/uL (3.50-5.40) Hemoglobin 8.2 g/dL (12.0-15.5) Hematocrit 25.0 % (36.0-47.0) Mean Corpuscular Volume 92 fL (79-100) Mean Corpuscular Hemoglobin 30 pg (25-35) Mean Corpuscular Hemoglobin Concent 33 g/dL (31-37) Red Cell Distribution Width 13.7 % (11.5-14.5) Platelet Count 489 x10^3/uL (140-400) Neutrophils (%) (Auto) 84 % (31-73) Lymphocytes (%) (Auto) 12 % (24-48) Monocytes (%) (Auto) 4 % (0-9) Eosinophils (%) (Auto) 0 % (0-3) Basophils (%) (Auto) 0 % (0-3) Neutrophils # (Auto) 20.4 x10^3uL (1.8-7.7) Lymphocytes # (Auto) 2.8 x10^3/uL (1.0-4.8) Monocytes # (Auto) 0.9 x10^3/uL (0.0-1.1) Eosinophils # (Auto) 0.1 x10^3/uL (0.0-0.7) Basophils # (Auto) 0.1 x10^3/uL (0.0-0.2) Sodium Level 139 mmol/L (136-145) Potassium Level 3.7 mmol/L (3.5-5.1) Chloride Level 104 mmol/L (98-107) Carbon Dioxide Level 28 mmol/L (21-32) Anion Gap 7 (6-14) Blood Urea Nitrogen 7 mg/dL (7-20) Creatinine 1.2 mg/dL (0.6-1.0) Estimated GFR (Cockcroft-Gault) 43.4 Glucose Level 88 mg/dL (70-99) Calcium Level 8.3 mg/dL (8.5-10.1) Problem List Problems Medical Problems: (1) Diverticulitis large intestine Status: Acute (2) Diverticulitis of both large and small intestine with abscess without bleeding Status: Acute Assessment/Plan complicated diverticulitis c diff supportive care Problems: SOPHIE FRYE MD 06/28/17 1704: SURGICAL PROGRESS NOTE Assessment/Plan pt seen and examined agree with above Problems: MINGO CERVANTES APRN Jun 28, 2017 10:58 SOPHIE FRYE MD Jun 28, 2017 17:04
[2017-06-28 11:00] VITALS: BP 131/55
[2017-06-28 15:00] VITALS: BP 123/58
--- NOTE | 2017-06-28 17:43 | PDOC ---
PROGRESS NOTES Subjective Having diarrhea when she eats so she eats in the bathroom. No new concerns except some swelling of feet, but she has refused SCDs, MARTHA hose, tolerating full liquids, still not interested in surgery Objective Afebrile General: NAD Heart: RRR Lungs: CTA Abd: no new findings, both drains functioning Ext: trace edema WBC: up to 24.2 Hgb: down to 8.2 K+: down to 3.7 Creat: up to 1.2 Vital Signs Vital Signs Date Time Temp Pulse Resp B/P (MAP) Pulse Ox O2 Delivery O2 Flow Rate FiO2 06/28/17 15:00 97.9 84 18 123/58 (79) 98 Room Air 97.9 06/27/17 12:55 2.0 I & O Intake and Output 06/28/17 07:00 Intake Total 1336 ml Output Total 125 ml Balance 1211 ml IV Total 1336 ml Drainage Total 125 ml # Voids 6 # Bowel Movements 2 Assessment and Plan 1. Sepsis from diverticular abscess from perforated diverticulum, s/p IR drain placement, she refused surgery,IR placed a second drain, culture growing E.coli and B.frag 2. UTI - separate bacteria from abscess per cultures 3. chronic anxiety 4. mitral valve prolapse with hx of SVT 5. diarrhea, C.diff now positive, on lactobacillus and oral vancomycin, stool volume slowing but still watery 6. hypokalemia resolved 7. moderate protein malnutrition from illness, starting to advance diet, causing atelectasis and pleural fluid in lungs, start ProcalAmine Problems: Zandra CUELLAR MD Jun 28, 2017 17:43
[2017-06-28] MEDS: AMINO AC 3%/ELECTROLYTE/GLYCER 1,000 ML IV SCH (18:00)
[2017-06-28 19:00] VITALS: BP 138/55
[2017-06-28] MEDS: PERPHENAZINE 2 MG TABLET PO SCH (21:49)
[2017-06-28] MEDS: AMITRIPTYLINE HCL 10 MG TABLET. PO SCH (21:49)
[2017-06-28] MEDS: ACETAMINOPHEN 500 MG TABLET PO SCH (21:49)
[2017-06-28 23:00] VITALS: BP 145/74
[2017-06-29] MEDS: traMADol 50 MG TABLET PO PRN ×3 (00:09→14:52)
[2017-06-29 04:00] VITALS: BP 149/61
[2017-06-29] MEDS: PIPERACILLIN/TAZO IV Push 3.375 GM VIAL. IVP SCH ×4 (04:09→21:37)
[2017-06-29 05:15] LABS: BASO % 0 % (0-3); EOS % 1 % (0-3); HEMATOCRIT 26.1 % (36.0-47.0); HEMOGLOBIN 8.6 g/dL (12.0-15.5); LYMPH # 2.7 x10^3/uL (1.0-4.8); LYMPH % 19 % (24-48); MEAN CORPUSCULAR HEMOGLOBIN 31 pg (25-35); MEAN CORPUSCULAR HGB CONC 33 g/dL (31-37); MEAN CORPUSCULAR VOLUME 92 fL (79-100); MONO % 7 % (0-9); NEUT % 73 % (31-73); PLATELET COUNT 493 x10^3/uL (140-400); RED BLOOD COUNT 2.83 x10^6/uL (3.50-5.40); RED CELL DISTRIBUTION WIDTH 13.5 % (11.5-14.5); WHITE BLOOD COUNT 14.5 x10^3/uL (4.0-11.0)
[2017-06-29 05:41] LABS: CALCIUM 8.3 mg/dL (8.5-10.1); CREATININE 1.2 mg/dL (0.6-1.0); GFR 43.4; POTASSIUM 3.5 mmol/L (3.5-5.1)
[2017-06-29] MEDS: AMINO AC 3%/ELECTROLYTE/GLYCER 1,000 ML IV SCH ×2 (06:35→17:10)
[2017-06-29 07:00] VITALS: BP 148/67
[2017-06-29] MEDS: VANCOMYCIN 125 MG/2.5 ML ORAL SOLUTION. PO SCH ×4 (08:54→20:23)
[2017-06-29] MEDS: METOPROLOL SUCC 24HR ER 50 MG TAB.ER.24H. PO SCH (08:54)
[2017-06-29] MEDS: hydroCHLOROthiazide 12.5 MG CAPSULE PO SCH (08:55)
[2017-06-29] MEDS: ASCORBIC ACID 500 MG TABLET PO SCH (08:55)
[2017-06-29] MEDS: LACTOBACILLUS RHAMNOSUS GG 1 CAPSULE. PO SCH ×3 (08:55→20:23)
[2017-06-29] MEDS: FERROUS SULFATE 325 MG TABLET. PO SCH (08:55)
[2017-06-29] MEDS: MULTIVITAMIN with MINERAL TABLET. PO SCH (08:55)
--- NOTE | 2017-06-29 09:05 | PDOC ---
Infectious Disease Note Subjective Subjective diarrhea ++ abd pain is ok still not ready for surgery ROS ROS GEN: Denies fevers, chills, sweats HEENT: Denies blurred vision, sore throat CV: Denies chest pain RESP: Denies shortness of air, cough GI: Denies n/v/ NEURO: Denies confusion, dizziness MSK: Denies weakness, joint pain/swelling Vital Sign Vital Signs Vital Signs Date Time Temp Pulse Resp B/P (MAP) Pulse Ox O2 Delivery O2 Flow Rate FiO2 06/29/17 07:00 97.7 93 18 148/67 (94) 96 Room Air 97.7 Physical Exam PHYSICAL EXAM GENERAL: NAD, Alert HEENT: PERRL, OC/OP NECK: Supple, no JVD, no LN LUNGS: Clear HEART: S1S2, no gallop, no murmur ABD: Soft, NT, no organomegaly, no rebound EXT: No edema, no cyanosis 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, 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, no focal neurologic deficit SKIN: No rash IV: ok Labs Lab Laboratory Tests Test 06/29/17 04:50 White Blood Count 14.5 x10^3/uL (4.0-11.0) Red Blood Count 2.83 x10^6/uL (3.50-5.40) Hemoglobin 8.6 g/dL (12.0-15.5) Hematocrit 26.1 % (36.0-47.0) Mean Corpuscular Volume 92 fL (79-100) Mean Corpuscular Hemoglobin 31 pg (25-35) Mean Corpuscular Hemoglobin Concent 33 g/dL (31-37) Red Cell Distribution Width 13.5 % (11.5-14.5) Platelet Count 493 x10^3/uL (140-400) Neutrophils (%) (Auto) 73 % (31-73) Lymphocytes (%) (Auto) 19 % (24-48) Monocytes (%) (Auto) 7 % (0-9) Eosinophils (%) (Auto) 1 % (0-3) Basophils (%) (Auto) 0 % (0-3) Neutrophils # (Auto) 10.6 x10^3uL (1.8-7.7) Lymphocytes # (Auto) 2.7 x10^3/uL (1.0-4.8) Monocytes # (Auto) 1.0 x10^3/uL (0.0-1.1) Eosinophils # (Auto) 0.2 x10^3/uL (0.0-0.7) Basophils # (Auto) 0.0 x10^3/uL (0.0-0.2) Sodium Level 140 mmol/L (136-145) Potassium Level 3.5 mmol/L (3.5-5.1) Chloride Level 104 mmol/L (98-107) Carbon Dioxide Level 29 mmol/L (21-32) Anion Gap 7 (6-14) Blood Urea Nitrogen 8 mg/dL (7-20) Creatinine 1.2 mg/dL (0.6-1.0) Estimated GFR (Cockcroft-Gault) 43.4 Glucose Level 94 mg/dL (70-99) Calcium Level 8.3 mg/dL (8.5-10.1) Micro ANAEROBIC-AEROBIC CULTURE PENDING ANAEROBIC RES 1 PENDING AEROBIC CULT Preliminary Preliminary report AEROBIC RES 1 Preliminary Gram negative rods Heavy growth Performed at: [address] [id number] [employer] Helper: Lydia Madden MD, Phone: [phone] AEROBIC RES 2 Preliminary Gram negative rods Heavy growth AEROBIC RES 4 Preliminary Yeast Heavy growth Request for further identification must be made within 1 week. Performed at: [address] [id number] [place] Helper: Lydia Madden MD, Phone: [phone] Objective Assessment Leukocytosis - UTI - POA (06/19) Klebsiella Res to Amp/Quinolones/Bactrim Diverticular abscess - Pans E. coli and bacteroides (06/20). ? Ovary and bladder involved with Tubo-ovarian abscess ? CV fistula - s/p drain, 06/20 Loose stool -C-diff + 06/22 (not paged) primary responded Perf viscous - declined surgery H/o SVT Plan Plan of Care Cont Zosyn Po Vanc Cont probiotics F/u labs add diflucan likely will need surgery with diverting colostomy, d/w pt , she is still not ready JAM RUSSELL MD Jun 29, 2017 09:05
--- NOTE | 2017-06-29 10:31 | PDOC ---
SURGICAL PROGRESS NOTE Subjective about the same taking diet having loose stools Vital Signs Vital Signs Date Time Temp Pulse Resp B/P (MAP) Pulse Ox O2 Delivery O2 Flow Rate FiO2 06/29/17 08:54 93 148/67 06/29/17 07:00 97.7 18 96 Room Air 97.7 I&O Intake and Output 06/29/17 07:00 Intake Total 1716.54 ml Output Total 298 ml Balance 1418.54 ml IV Total 1716.54 ml Output Urine Total 250 ml Urine/Stool Mix 3 ml Drainage Total 45 ml # Voids 3 PATIENT HAS A CALL: No General: Alert, Oriented X3, No acute distress Abdomen: Soft, Other (minimal TTP in the lower abdomen) Labs Laboratory Tests Test 06/28/17 04:45 06/29/17 04:50 White Blood Count 24.2 x10^3/uL (4.0-11.0) 14.5 x10^3/uL (4.0-11.0) Red Blood Count 2.71 x10^6/uL (3.50-5.40) 2.83 x10^6/uL (3.50-5.40) Hemoglobin 8.2 g/dL (12.0-15.5) 8.6 g/dL (12.0-15.5) Hematocrit 25.0 % (36.0-47.0) 26.1 % (36.0-47.0) Mean Corpuscular Volume 92 fL (79-100) 92 fL (79-100) Mean Corpuscular Hemoglobin 30 pg (25-35) 31 pg (25-35) Mean Corpuscular Hemoglobin Concent 33 g/dL (31-37) 33 g/dL (31-37) Red Cell Distribution Width 13.7 % (11.5-14.5) 13.5 % (11.5-14.5) Platelet Count 489 x10^3/uL (140-400) 493 x10^3/uL (140-400) Neutrophils (%) (Auto) 84 % (31-73) 73 % (31-73) Lymphocytes (%) (Auto) 12 % (24-48) 19 % (24-48) Monocytes (%) (Auto) 4 % (0-9) 7 % (0-9) Eosinophils (%) (Auto) 0 % (0-3) 1 % (0-3) Basophils (%) (Auto) 0 % (0-3) 0 % (0-3) Neutrophils # (Auto) 20.4 x10^3uL (1.8-7.7) 10.6 x10^3uL (1.8-7.7) Lymphocytes # (Auto) 2.8 x10^3/uL (1.0-4.8) 2.7 x10^3/uL (1.0-4.8) Monocytes # (Auto) 0.9 x10^3/uL (0.0-1.1) 1.0 x10^3/uL (0.0-1.1) Eosinophils # (Auto) 0.1 x10^3/uL (0.0-0.7) 0.2 x10^3/uL (0.0-0.7) Basophils # (Auto) 0.1 x10^3/uL (0.0-0.2) 0.0 x10^3/uL (0.0-0.2) Sodium Level 139 mmol/L (136-145) 140 mmol/L (136-145) Potassium Level 3.7 mmol/L (3.5-5.1) 3.5 mmol/L (3.5-5.1) Chloride Level 104 mmol/L (98-107) 104 mmol/L (98-107) Carbon Dioxide Level 28 mmol/L (21-32) 29 mmol/L (21-32) Anion Gap 7 (6-14) 7 (6-14) Blood Urea Nitrogen 7 mg/dL (7-20) 8 mg/dL (7-20) Creatinine 1.2 mg/dL (0.6-1.0) 1.2 mg/dL (0.6-1.0) Estimated GFR (Cockcroft-Gault) 43.4 43.4 Glucose Level 88 mg/dL (70-99) 94 mg/dL (70-99) Calcium Level 8.3 mg/dL (8.5-10.1) 8.3 mg/dL (8.5-10.1) Laboratory Tests Test 06/29/17 04:50 White Blood Count 14.5 x10^3/uL (4.0-11.0) Red Blood Count 2.83 x10^6/uL (3.50-5.40) Hemoglobin 8.6 g/dL (12.0-15.5) Hematocrit 26.1 % (36.0-47.0) Mean Corpuscular Volume 92 fL (79-100) Mean Corpuscular Hemoglobin 31 pg (25-35) Mean Corpuscular Hemoglobin Concent 33 g/dL (31-37) Red Cell Distribution Width 13.5 % (11.5-14.5) Platelet Count 493 x10^3/uL (140-400) Neutrophils (%) (Auto) 73 % (31-73) Lymphocytes (%) (Auto) 19 % (24-48) Monocytes (%) (Auto) 7 % (0-9) Eosinophils (%) (Auto) 1 % (0-3) Basophils (%) (Auto) 0 % (0-3) Neutrophils # (Auto) 10.6 x10^3uL (1.8-7.7) Lymphocytes # (Auto) 2.7 x10^3/uL (1.0-4.8) Monocytes # (Auto) 1.0 x10^3/uL (0.0-1.1) Eosinophils # (Auto) 0.2 x10^3/uL (0.0-0.7) Basophils # (Auto) 0.0 x10^3/uL (0.0-0.2) Sodium Level 140 mmol/L (136-145) Potassium Level 3.5 mmol/L (3.5-5.1) Chloride Level 104 mmol/L (98-107) Carbon Dioxide Level 29 mmol/L (21-32) Anion Gap 7 (6-14) Blood Urea Nitrogen 8 mg/dL (7-20) Creatinine 1.2 mg/dL (0.6-1.0) Estimated GFR (Cockcroft-Gault) 43.4 Glucose Level 94 mg/dL (70-99) Calcium Level 8.3 mg/dL (8.5-10.1) Problem List Problems Medical Problems: (1) Diverticulitis large intestine Status: Acute (2) Diverticulitis of both large and small intestine with abscess without bleeding Status: Acute Assessment/Plan perforated sigmoid diverticulitis s/p placement of two drains by JUNE Hallman is still not willing to consider surgery I explained that it very likely will need to happen will continue IV abx, drains repeat CT 07/04 Problems: SOPHIE FRYE MD Jun 29, 2017 10:31
[2017-06-29 11:00] VITALS: BP 144/61
[2017-06-29] MEDS: FLUCONAZOLE 100 MG TABLET. PO SCH (11:53)
--- NOTE | 2017-06-29 12:09 | PDOC ---
PROGRESS NOTES Subjective Eating but has watery stool when she does eat, pain ok, tolerating drains, no fever, chills or night sweats, no chest pain or SOA Objective Afebrile General: comfortable A&O Heart: RRR Lungs: CTA Abd: LLQ tenderness, no peritoneal signs Ext: trace edema of feet WBC: improved to 14K Hgb: stable K+: normal Creat: 1.2 - stable last culture also growing yeast, diflucan added Vital Signs Vital Signs Date Time Temp Pulse Resp B/P (MAP) Pulse Ox O2 Delivery O2 Flow Rate FiO2 06/29/17 11:00 97.9 87 18 144/61 (88) 97 Room Air 97.9 06/27/17 12:55 2.0 I & O Intake and Output 06/29/17 07:00 Intake Total 1716.54 ml Output Total 298 ml Balance 1418.54 ml IV Total 1716.54 ml Output Urine Total 250 ml Urine/Stool Mix 3 ml Drainage Total 45 ml # Voids 3 Assessment and Plan Assessment/plan: (1) Diverticulitis large intestine - with perforation and abscess formation with sepsis, she has declined surgery - continue IV abx and drainage, Diflucan added for yeast coverage, WBC improved significantly today Status: Acute (2) Cdiff colitis, cont po vanco and probiotics (3) protein malnutrition - continue procalamine and protein supplements (4) hypokalemia - resolved (5) mitral valve prolapse with anxiety - continue meds Problems: Zandra CUELLAR MD Jun 29, 2017 12:09
[2017-06-29 15:00] VITALS: BP 159/77
[2017-06-29 19:00] VITALS: BP 136/53
[2017-06-29] MEDS: ACETAMINOPHEN 500 MG TABLET PO SCH (20:23)
[2017-06-29] MEDS: AMITRIPTYLINE HCL 10 MG TABLET. PO SCH (20:23)
[2017-06-29] MEDS: PERPHENAZINE 2 MG TABLET PO SCH (20:23)
[2017-06-29 23:00] VITALS: BP 136/55
[2017-06-30 03:00] VITALS: BP 146/63
[2017-06-30] MEDS: PIPERACILLIN/TAZO IV Push 3.375 GM VIAL. IVP SCH ×4 (04:17→22:14)
[2017-06-30] MEDS: traMADol 50 MG TABLET PO PRN ×4 (04:19→23:27)
[2017-06-30 05:30] LABS: BASO # 0.1 x10^3/uL (0.0-0.2); BASO % 0 % (0-3); EOS % 1 % (0-3); HEMATOCRIT 26.1 % (36.0-47.0); HEMOGLOBIN 8.5 g/dL (12.0-15.5); LYMPH # 3.3 x10^3/uL (1.0-4.8); LYMPH % 24 % (24-48); MEAN CORPUSCULAR HEMOGLOBIN 30 pg (25-35); MEAN CORPUSCULAR HGB CONC 32 g/dL (31-37); MEAN CORPUSCULAR VOLUME 92 fL (79-100); MONO % 7 % (0-9); NEUT % 68 % (31-73); PLATELET COUNT 540 x10^3/uL (140-400); RED BLOOD COUNT 2.83 x10^6/uL (3.50-5.40); RED CELL DISTRIBUTION WIDTH 13.4 % (11.5-14.5); WHITE BLOOD COUNT 13.5 x10^3/uL (4.0-11.0)
[2017-06-30 07:00] VITALS: BP 181/145
--- NOTE | 2017-06-30 08:05 | PDOC ---
Infectious Disease Note Subjective Subjective feeling better ROS ROS GEN: Denies fevers, chills, sweats HEENT: Denies blurred vision, sore throat CV: Denies chest pain RESP: Denies shortness of air, cough GI: Denies n/v/ NEURO: Denies confusion, dizziness MSK: Denies weakness, joint pain/swelling Vital Sign Vital Signs Vital Signs Date Time Temp Pulse Resp B/P (MAP) Pulse Ox O2 Delivery O2 Flow Rate FiO2 06/30/17 05:20 20 97 Room Air 06/30/17 03:00 97.5 85 146/63 (90) 97.5 Physical Exam PHYSICAL EXAM GENERAL: NAD, Alert HEENT: PERRL, OC/OP NECK: Supple, no JVD, no LN LUNGS: Clear HEART: S1S2, no gallop, no murmur ABD: Soft, NT, no organomegaly, no rebound EXT: No edema, no cyanosis 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, 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, no focal neurologic deficit SKIN: No rash IV: ok Labs Lab Laboratory Tests Test 06/30/17 05:05 White Blood Count 13.5 x10^3/uL (4.0-11.0) Red Blood Count 2.83 x10^6/uL (3.50-5.40) Hemoglobin 8.5 g/dL (12.0-15.5) Hematocrit 26.1 % (36.0-47.0) Mean Corpuscular Volume 92 fL (79-100) Mean Corpuscular Hemoglobin 30 pg (25-35) Mean Corpuscular Hemoglobin Concent 32 g/dL (31-37) Red Cell Distribution Width 13.4 % (11.5-14.5) Platelet Count 540 x10^3/uL (140-400) Neutrophils (%) (Auto) 68 % (31-73) Lymphocytes (%) (Auto) 24 % (24-48) Monocytes (%) (Auto) 7 % (0-9) Eosinophils (%) (Auto) 1 % (0-3) Basophils (%) (Auto) 0 % (0-3) Neutrophils # (Auto) 9.1 x10^3uL (1.8-7.7) Lymphocytes # (Auto) 3.3 x10^3/uL (1.0-4.8) Monocytes # (Auto) 0.9 x10^3/uL (0.0-1.1) Eosinophils # (Auto) 0.2 x10^3/uL (0.0-0.7) Basophils # (Auto) 0.1 x10^3/uL (0.0-0.2) Micro ANAEROBIC-AEROBIC CULTURE PENDING ANAEROBIC RES 1 PENDING AEROBIC CULT Preliminary Preliminary report AEROBIC RES 1 Preliminary Gram negative rods Heavy growth Performed at: [facility] [employer] [place], [place] [id number] [employer] Personality: Lydia Madden MD, Phone: [phone] AEROBIC RES 2 Preliminary Gram negative rods Heavy growth AEROBIC RES 4 Preliminary Yeast Heavy growth Request for further identification must be made within 1 week. Performed at: [facility] [employer] [place], [place] [id number] [employer] Personality: Lydia Madden MD, Phone: [phone] Objective Assessment Leukocytosis - UTI - POA (06/19) Klebsiella Res to Amp/Quinolones/Bactrim Diverticular abscess - Pans E. coli and bacteroides (06/20). ? Ovary and bladder involved with Tubo-ovarian abscess ? CV fistula - s/p drain, 06/20 Loose stool -C-diff + 06/22 (not paged) primary responded Perf viscous - declined surgery H/o SVT Plan Plan of Care Cont Zosyn Po Vanc Cont probiotics F/u labs add diflucan likely will need surgery with diverting colostomy, d/w pt , she is still not ready JAM RUSSELL MD Jun 30, 2017 08:05
--- NOTE | 2017-06-30 08:20 | PDOC ---
SURGICAL PROGRESS NOTE Subjective Tired but tolerating diet, having lots of loose stools Vital Signs Vital Signs Date Time Temp Pulse Resp B/P (MAP) Pulse Ox O2 Delivery O2 Flow Rate FiO2 06/30/17 05:20 20 97 Room Air 06/30/17 03:00 97.5 85 146/63 (90) 97.5 I&O Intake and Output 06/30/17 07:00 Intake Total 2264 ml Output Total 2770 ml Balance -506 ml Intake Oral 480 ml IV Total 1784 ml Output Urine Total 2700 ml Drainage Total 70 ml # Voids 4 # Bowel Movements 5 General: Alert, Oriented X3, Cooperative, mild distress Abdomen: Normal bowel sounds, Soft, No tenderness Labs Laboratory Tests Test 06/29/17 04:50 06/30/17 05:05 White Blood Count 14.5 x10^3/uL (4.0-11.0) 13.5 x10^3/uL (4.0-11.0) Red Blood Count 2.83 x10^6/uL (3.50-5.40) 2.83 x10^6/uL (3.50-5.40) Hemoglobin 8.6 g/dL (12.0-15.5) 8.5 g/dL (12.0-15.5) Hematocrit 26.1 % (36.0-47.0) 26.1 % (36.0-47.0) Mean Corpuscular Volume 92 fL (79-100) 92 fL (79-100) Mean Corpuscular Hemoglobin 31 pg (25-35) 30 pg (25-35) Mean Corpuscular Hemoglobin Concent 33 g/dL (31-37) 32 g/dL (31-37) Red Cell Distribution Width 13.5 % (11.5-14.5) 13.4 % (11.5-14.5) Platelet Count 493 x10^3/uL (140-400) 540 x10^3/uL (140-400) Neutrophils (%) (Auto) 73 % (31-73) 68 % (31-73) Lymphocytes (%) (Auto) 19 % (24-48) 24 % (24-48) Monocytes (%) (Auto) 7 % (0-9) 7 % (0-9) Eosinophils (%) (Auto) 1 % (0-3) 1 % (0-3) Basophils (%) (Auto) 0 % (0-3) 0 % (0-3) Neutrophils # (Auto) 10.6 x10^3uL (1.8-7.7) 9.1 x10^3uL (1.8-7.7) Lymphocytes # (Auto) 2.7 x10^3/uL (1.0-4.8) 3.3 x10^3/uL (1.0-4.8) Monocytes # (Auto) 1.0 x10^3/uL (0.0-1.1) 0.9 x10^3/uL (0.0-1.1) Eosinophils # (Auto) 0.2 x10^3/uL (0.0-0.7) 0.2 x10^3/uL (0.0-0.7) Basophils # (Auto) 0.0 x10^3/uL (0.0-0.2) 0.1 x10^3/uL (0.0-0.2) Sodium Level 140 mmol/L (136-145) Potassium Level 3.5 mmol/L (3.5-5.1) Chloride Level 104 mmol/L (98-107) Carbon Dioxide Level 29 mmol/L (21-32) Anion Gap 7 (6-14) Blood Urea Nitrogen 8 mg/dL (7-20) Creatinine 1.2 mg/dL (0.6-1.0) Estimated GFR (Cockcroft-Gault) 43.4 Glucose Level 94 mg/dL (70-99) Calcium Level 8.3 mg/dL (8.5-10.1) Laboratory Tests Test 06/30/17 05:05 White Blood Count 13.5 x10^3/uL (4.0-11.0) Red Blood Count 2.83 x10^6/uL (3.50-5.40) Hemoglobin 8.5 g/dL (12.0-15.5) Hematocrit 26.1 % (36.0-47.0) Mean Corpuscular Volume 92 fL (79-100) Mean Corpuscular Hemoglobin 30 pg (25-35) Mean Corpuscular Hemoglobin Concent 32 g/dL (31-37) Red Cell Distribution Width 13.4 % (11.5-14.5) Platelet Count 540 x10^3/uL (140-400) Neutrophils (%) (Auto) 68 % (31-73) Lymphocytes (%) (Auto) 24 % (24-48) Monocytes (%) (Auto) 7 % (0-9) Eosinophils (%) (Auto) 1 % (0-3) Basophils (%) (Auto) 0 % (0-3) Neutrophils # (Auto) 9.1 x10^3uL (1.8-7.7) Lymphocytes # (Auto) 3.3 x10^3/uL (1.0-4.8) Monocytes # (Auto) 0.9 x10^3/uL (0.0-1.1) Eosinophils # (Auto) 0.2 x10^3/uL (0.0-0.7) Basophils # (Auto) 0.1 x10^3/uL (0.0-0.2) Problem List Problems Medical Problems: (1) Diverticulitis large intestine Status: Acute (2) Diverticulitis of both large and small intestine with abscess without bleeding Status: Acute Assessment/Plan Diverticulitis with perforation and C. Dif Continue medical therapy plan for repeat CT of the abd on Tuesday and reevaluate surgical plans Problems: VIKKI BOOTH MD Jun 30, 2017 08:20
[2017-06-30] MEDS: VANCOMYCIN 125 MG/2.5 ML ORAL SOLUTION. PO SCH ×4 (08:44→21:05)
[2017-06-30] MEDS: ASCORBIC ACID 500 MG TABLET PO SCH (08:45)
[2017-06-30] MEDS: MULTIVITAMIN with MINERAL TABLET. PO SCH (08:46)
[2017-06-30] MEDS: METOPROLOL SUCC 24HR ER 50 MG TAB.ER.24H. PO SCH (08:46)
[2017-06-30] MEDS: FLUCONAZOLE 100 MG TABLET. PO SCH (08:47)
[2017-06-30] MEDS: FERROUS SULFATE 325 MG TABLET. PO SCH (08:47)
[2017-06-30] MEDS: LACTOBACILLUS RHAMNOSUS GG 1 CAPSULE. PO SCH ×3 (08:47→21:05)
[2017-06-30] MEDS: hydroCHLOROthiazide 12.5 MG CAPSULE PO SCH (08:47)
[2017-06-30] MEDS: AMINO AC 3%/ELECTROLYTE/GLYCER 1,000 ML IV SCH ×2 (08:48→23:28)
[2017-06-30] MEDS: CHOLESTYRAMINE/ASPARTAME 4 GM PACKET PO SCH ×2 (08:57→21:04)
--- NOTE | 2017-06-30 10:57 | PDOC ---
PROGRESS NOTES Subjective Subjective Patient reports abdominal pain is slowly improving, comfortable with prn med for this. Still having frequent loose stools. Objective Objective Vital Signs Date Time Temp Pulse Resp B/P (MAP) Pulse Ox O2 Delivery O2 Flow Rate FiO2 06/30/17 10:17 97 Room Air 06/30/17 08:46 85 144/55 06/30/17 07:00 97.9 18 97.9 06/27/17 12:55 2.0 Intake and Output 06/30/17 07:00 Intake Total 2264 ml Output Total 2770 ml Balance -506 ml Intake Oral 480 ml IV Total 1784 ml Output Urine Total 2700 ml Drainage Total 70 ml # Voids 4 # Bowel Movements 5 Physical Exam Abdomen: Normal bowel sounds, Soft, Other (mild TTP diffusely) Heart: Regular rate Extremities: No edema General: Alert, Oriented X3, No acute distress Lungs: Clear to auscultation Assessment Assessment Problems Medical Problems: (1) Diverticulitis large intestine Status: Acute (2) Diverticulitis of both large and small intestine with abscess without bleeding Status: Acute Plan Plan of Care 1. Abdominal abscess - stable. Continue Zosyn and Diflucan per ID. Surgery plans CT Tuesday to reassess need for surgery, which patient is still reluctant to consider. 2. C difficile colitis - WBC's improving, continue po Vancomycin. 3. HTN with MV prolapse - controlled with present meds. 4. chronic anxiety - stable with home meds. 5. hypokalemia - start po replacement and follow lab. Should improve as diarrhea decreases. Comment Review of Relevant I have reviewed the following items mariusz (where applicable) has been applied. Labs Laboratory Tests Test 06/29/17 04:50 06/30/17 05:05 White Blood Count 14.5 x10^3/uL (4.0-11.0) 13.5 x10^3/uL (4.0-11.0) Red Blood Count 2.83 x10^6/uL (3.50-5.40) 2.83 x10^6/uL (3.50-5.40) Hemoglobin 8.6 g/dL (12.0-15.5) 8.5 g/dL (12.0-15.5) Hematocrit 26.1 % (36.0-47.0) 26.1 % (36.0-47.0) Mean Corpuscular Volume 92 fL (79-100) 92 fL (79-100) Mean Corpuscular Hemoglobin 31 pg (25-35) 30 pg (25-35) Mean Corpuscular Hemoglobin Concent 33 g/dL (31-37) 32 g/dL (31-37) Red Cell Distribution Width 13.5 % (11.5-14.5) 13.4 % (11.5-14.5) Platelet Count 493 x10^3/uL (140-400) 540 x10^3/uL (140-400) Neutrophils (%) (Auto) 73 % (31-73) 68 % (31-73) Lymphocytes (%) (Auto) 19 % (24-48) 24 % (24-48) Monocytes (%) (Auto) 7 % (0-9) 7 % (0-9) Eosinophils (%) (Auto) 1 % (0-3) 1 % (0-3) Basophils (%) (Auto) 0 % (0-3) 0 % (0-3) Neutrophils # (Auto) 10.6 x10^3uL (1.8-7.7) 9.1 x10^3uL (1.8-7.7) Lymphocytes # (Auto) 2.7 x10^3/uL (1.0-4.8) 3.3 x10^3/uL (1.0-4.8) Monocytes # (Auto) 1.0 x10^3/uL (0.0-1.1) 0.9 x10^3/uL (0.0-1.1) Eosinophils # (Auto) 0.2 x10^3/uL (0.0-0.7) 0.2 x10^3/uL (0.0-0.7) Basophils # (Auto) 0.0 x10^3/uL (0.0-0.2) 0.1 x10^3/uL (0.0-0.2) Sodium Level 140 mmol/L (136-145) Potassium Level 3.5 mmol/L (3.5-5.1) Chloride Level 104 mmol/L (98-107) Carbon Dioxide Level 29 mmol/L (21-32) Anion Gap 7 (6-14) Blood Urea Nitrogen 8 mg/dL (7-20) Creatinine 1.2 mg/dL (0.6-1.0) Estimated GFR (Cockcroft-Gault) 43.4 Glucose Level 94 mg/dL (70-99) Calcium Level 8.3 mg/dL (8.5-10.1) Laboratory Tests Test 06/30/17 05:05 White Blood Count 13.5 x10^3/uL (4.0-11.0) Red Blood Count 2.83 x10^6/uL (3.50-5.40) Hemoglobin 8.5 g/dL (12.0-15.5) Hematocrit 26.1 % (36.0-47.0) Mean Corpuscular Volume 92 fL (79-100) Mean Corpuscular Hemoglobin 30 pg (25-35) Mean Corpuscular Hemoglobin Concent 32 g/dL (31-37) Red Cell Distribution Width 13.4 % (11.5-14.5) Platelet Count 540 x10^3/uL (140-400) Neutrophils (%) (Auto) 68 % (31-73) Lymphocytes (%) (Auto) 24 % (24-48) Monocytes (%) (Auto) 7 % (0-9) Eosinophils (%) (Auto) 1 % (0-3) Basophils (%) (Auto) 0 % (0-3) Neutrophils # (Auto) 9.1 x10^3uL (1.8-7.7) Lymphocytes # (Auto) 3.3 x10^3/uL (1.0-4.8) Monocytes # (Auto) 0.9 x10^3/uL (0.0-1.1) Eosinophils # (Auto) 0.2 x10^3/uL (0.0-0.7) Basophils # (Auto) 0.1 x10^3/uL (0.0-0.2) Microbiology 06/19/17 Blood Culture - Final, Complete NO GROWTH AFTER 5 DAYS 06/19/17 Urine Culture - Final, Complete 06/19/17 Urine Culture Result 1 (KEELEY) - Final, Complete 06/19/17 Antimicrobic Susceptibility - Final, Complete 06/27/17 Gram Stain - Final, Complete Medications Current Medications Ondansetron HCl (Zofran) 4 mg 1X ONCE IV Last administered on 06/19/17t 13:43 ; Start 06/19/17 at 13:15; Stop 06/19/17 at 13:17; Status DC Sodium Chloride 1,000 ml @ 1,000 mls/hr 1X ONCE IV Last administered on 06/19 13:43; Start 06/19/17 at 13:15; Stop 06/19/17 at 14:14; Status DC Piperacillin Sod/ Tazobactam Sod (Zosyn Per Pharmacy) 1 each PRN DAILY PRN MC SEE COMMENTS; Start 06/19/17 at 14:30; Stop 06/23/17 at 08:50; Status DC Metronidazole 100 ml @ 100 mls/hr Q12HR IV Last administered on 06/24/17 08: 44; Start 06/19/17 at 14:30; Stop 06/24/17 at 10:20; Status DC Piperacillin Sod/ Tazobactam Sod (Zosyn) 3.375 gm 1X ONCE IVP Last administered on 06/19/17 14:49; Start 06/19/17 at 15:00; Stop 06/19/17 at 15 :01; Status DC Sodium Chloride 1,000 ml @ 1,000 mls/hr 1X ONCE IV Last administered on 06/19 15:00; Start 06/19/17 at 15:00; Stop 06/19/17 at 15:59; Status DC Ondansetron HCl (Zofran) 4 mg PRN Q8HRS PRN IV NAUSEA/VOMITING; Start at 15:00; Stop 06/20/17 at 14:59; Status DC Morphine Sulfate 4 mg PRN Q2HR PRN IV PAIN Last administered on 06/20/17 00: 53; Start 06/19/17 at 15:00; Stop 06/20/17 at 14:59; Status DC Sodium Chloride 1,000 ml @ 125 mls/hr Q8H IV Last administered on 06/20/17 10:48; Start 06/19/17 at 14:58; Stop 06/20/17 at 14:57; Status DC Piperacillin Sod/ Tazobactam Sod (Zosyn) 2.25 gm Q6HRS IVP Last administered on 06/23/17 06:28; Start 06/19/17 at 22:00; Stop 06/23/17 at 08:50; Status DC Acetaminophen (Tylenol) 500 mg HS PO Last administered on 06/29/17 20:23; Start 06/20/17 at 21:00 Tramadol HCl (Ultram) 50 mg PRN Q6HRS PRN PO PAIN Last administered on 10:17; Start 06/20/17 at 09:00 Multivitamins (Thera M Plus) 1 tab DAILY PO Last administered on 06/30/17 08: 46; Start 06/20/17 at 09:00 Amitriptyline HCl (Elavil) 10 mg QHS PO Last administered on 06/29/17 20:23; Start 06/20/17 at 21:00 Metoprolol Succinate (Toprol Xl) 50 mg DAILY PO Last administered on 08:46; Start 06/20/17 at 09:00 Perphenazine (Trilafon) 2 mg QHS PO Last administered on 06/29/17 20:23; Start 06/20/17 at 21:00 Lidocaine/Sodium Bicarbonate (Buffered Lidocaine 1%) 20 ml STK-MED ONCE IJ ; Start 06/20/17 at 12:44; Stop 06/20/17 at 12:45; Status DC Fentanyl Citrate (Fentanyl 2ml Vial) 100 mcg STK-MED ONCE .ROUTE ; Start at 12:54; Stop 06/20/17 at 12:55; Status DC Midazolam HCl (Versed) 2 mg STK-MED ONCE .ROUTE ; Start 06/20/17 at 12:55; Stop 06/20/17 at 12:56; Status DC Lidocaine/Sodium Bicarbonate (Buffered Lidocaine 1%) 20 ml 1X ONCE IJ Last administered on 06/20/17 13:25; Start 06/20/17 at 13:00; Stop 06/20/17 at 13 :03; Status DC Midazolam HCl (Versed) 2 mg 1X ONCE IV Last administered on 06/20/17 13:25; Start 06/20/17 at 13:00; Stop 06/20/17 at 13:03; Status DC Fentanyl Citrate (Fentanyl 2ml Vial) 100 mcg 1X ONCE IV Last administered on 06/20/17 13:26; Start 06/20/17 at 13:00; Stop 06/20/17 at 13:03; Status DC Sodium Chloride 1,000 ml @ 125 mls/hr 1X ONCE IV ; Start 06/21/17 at 15:00; Stop 06/21/17 at 22:59; Status Cancel Sodium Chloride 1,000 ml @ 125 mls/hr Q8H IV Last administered on 06/23/17 10:01; Start 06/21/17 at 15:30; Stop 06/23/17 at 13:19; Status DC Ferrous Sulfate (Feosol) 325 mg [id number] PO Last administered on 06/30/17 08:47; Start 06/22/17 at 17:00 Ascorbic Acid (Vitamin C) 500 mg DAILY PO Last administered on 06/30/17 08:45 ; Start 06/22/17 at 17:00 Lorazepam (Ativan) 2 mg 1X PRN PRN IV ANXIETY / AGITATION; Start 06/22/17 at 23:30; Status Cancel Diphenhydramine HCl (Benadryl) 25 mg 1X PRN PRN IVP INSOMNIA, MAY REPEAT IN 1HR ; Start 06/22/17 at 23:30; Status Cancel Acetaminophen (Acetaminophen Supp) 650 mg PRN Q6HRS PRN TN MILD PAIN / TEMP; Start 06/22/17 at 23:30; Status Cancel Potassium Chloride (Klor-Con) 40 meq 1X ONCE PO Last administered on 06:52; Start 06/23/17 at 06:45; Stop 06/23/17 at 06:46; Status DC Lactobacillus Rhamnosus (Culturelle) 1 cap TID PO Last administered on 08:47; Start 06/23/17 at 09:00 Piperacillin Sod/ Tazobactam Sod 3.375 gm/Dextrose 50 ml @ 100 mls/hr Q6HRS IV ; Start 06/23/17 at 12:00; Stop 06/23/17 at 16:12; Status DC Piperacillin Sod/ Tazobactam Sod (Zosyn) 3.375 gm Q6HRS IVP Last administered on 06/23/17 16:14; Start 06/23/17 at 12:00; Stop 06/23/17 at 16:28; Status DC Iohexol (Omnipaque 240 Mg/ml) 30 ml 1X ONCE PO ; Start 06/23/17 at 13:30; Stop 06/23/17 at 13:32; Status DC Iohexol (Omnipaque 300 Mg/ml) 60 ml 1X ONCE IV Last administered on 15:20; Start 06/23/17 at 13:30; Stop 06/23/17 at 13:32; Status DC Info (Do NOT chart on this entry -- for MONITORING) 1 each PRN DAILY PRN MC SEE COMMENTS; Start 06/23/17 at 13:45; Stop 06/25/17 at 13:44; Status DC Piperacillin Sod/ Tazobactam Sod 3.375 gm/Dextrose 50 ml @ 100 mls/hr Q6H IV Last administered on 06/23/17 16:23; Start 06/23/17 at 16:00; Stop 06/23/17 at 16:26; Status DC Piperacillin Sod/ Tazobactam Sod (Zosyn) 3.375 gm Q6H IVP Last administered on 06/30/17 10:17; Start 06/23/17 at 22:00 Sodium Chloride 1,000 ml @ 100 mls/hr Q10H IV Last administered on 06/23/17 17:51; Start 06/23/17 at 17:00; Stop 06/23/17 at 22:00; Status DC Vancomycin HCl 125 mg [id number] PO Last administered on 06/30/17 08:44; Start 06/23/17 at 18:30 Potassium Chloride/Sodium Chloride 1,000 ml @ 75 mls/hr [id number] IV Last administered on 06/26/17 17:30; Start 06/23/17 at 22:30; Stop 06/27/17 at 17 :53; Status DC Potassium Chloride (Klor-Con) 20 meq TIDWMEALS PO Last administered on 17:28; Start 06/24/17 at 08:00; Stop 06/27/17 at 17:53; Status DC Fentanyl Citrate (Fentanyl 2ml Vial) 100 mcg STK-MED ONCE .ROUTE ; Start at 14:24; Stop 06/24/17 at 14:25; Status DC Midazolam HCl (Versed) 2 mg STK-MED ONCE .ROUTE ; Start 06/24/17 at 14:24; Stop 06/24/17 at 14:25; Status DC Lidocaine/Sodium Bicarbonate (Buffered Lidocaine 1%) 20 ml STK-MED ONCE IJ ; Start 06/24/17 at 14:25; Stop 06/24/17 at 14:26; Status DC Hydrochlorothiazide (Microzide) 12.5 mg DAILY PO Last administered on 08:47; Start 06/26/17 at 11:00 Lidocaine/Sodium Bicarbonate (Buffered Lidocaine 1%) 20 ml STK-MED ONCE IJ ; Start 06/27/17 at 12:15; Stop 06/27/17 at 12:16; Status DC Midazolam HCl (Versed) 5 mg STK-MED ONCE .ROUTE ; Start 06/27/17 at 12:24; Stop 06/27/17 at 12:25; Status DC Fentanyl Citrate (Fentanyl 5ml Vial) 250 mcg STK-MED ONCE .ROUTE ; Start at 12:24; Stop 06/27/17 at 12:25; Status DC Flumazenil (Romazicon) 0.5 mg STK-MED ONCE IV ; Start 06/27/17 at 12:24; Stop 06/27/17 at 12:25; Status DC Naloxone HCl (Narcan) 0.4 mg STK-MED ONCE .ROUTE ; Start 06/27/17 at 12:24; Stop 06/27/17 at 12:25; Status DC Lidocaine/Sodium Bicarbonate (Buffered Lidocaine 1%) 20 ml 1X ONCE IJ Last administered on 06/27/17 12:54; Start 06/27/17 at 12:45; Stop 06/27/17 at 12 :46; Status DC Midazolam HCl (Versed) 5 mg 1X ONCE IV Last administered on 06/27/17 12:54; Start 06/27/17 at 12:45; Stop 06/27/17 at 12:46; Status DC Fentanyl Citrate (Fentanyl 5ml Vial) 250 mcg 1X ONCE IV Last administered on 06/27/17 12:55; Start 06/27/17 at 12:45; Stop 06/27/17 at 12:46; Status DC Sodium Chloride 1,000 ml @ 75 mls/hr [id number] IV Last administered on 04:28; Start 06/27/17 at 18:00; Stop 06/28/17 at 17:45; Status DC Amino Acids/ Glycerin/ Electrolytes 1,000 ml @ 80 mls/hr [id number] IV Last administered on 06/30/17 08:48; Start 06/28/17 at 18:00 Fluconazole (Diflucan) 200 mg DAILY PO Last administered on 06/30/17 08:47; Start 06/29/17 at 09:30 Cholestyramine Resin (Questran Light) 4 gm BID PO Last administered on 08:57; Start 06/30/17 at 09:00 Active Scripts Active Tramadol Hcl 50 Mg Tablet 1 Tab PO PRN Q6HRS PRN Reported Perphen-Amitrip 2 Mg-10 Mg Tab (Perphenazine/Amitriptyline Hcl) 1 Each Tablet 1 Each PO HS Acetaminophen 500 Mg Tablet 1 Tab PO HS [Metoprolol] 50 Mg PO DAILY [Trivale 210] 1 Tab PO HS PRN Centrum Silver Tablet (Multivits-Min/Fa/Lycopene/Lut) 1 Each Tablet 1 Each PO DAILY Aspirin 81 Mg Tab.chew 1 Tab PO QODAY Vitals/I & O Vital Sign - Last 24 Hours 06/29/17 06/29/17 06/29/17 06/29/17 11:00 15:00 19:00 19:40 Temp 97.9 98.4 98.2 97.9 98.4 98.2 Pulse 87 79 88 Resp 18 18 20 B/P (MAP) 144/61 (88) 159/77 (104) 136/53 (80) Pulse Ox 97 96 96 O2 Delivery Room Air Room Air Room Air Room Air 06/29/17 06/30/17 06/30/17 06/30/17 23:00 03:00 04:19 05:20 Temp 97.9 97.5 97.9 97.5 Pulse 77 85 Resp 20 18 20 20 B/P (MAP) 136/55 (82) 146/63 (90) Pulse Ox 96 97 97 97 O2 Delivery Room Air Room Air Room Air Room Air 06/30/17 06/30/17 06/30/17 07:00 08:46 10:17 Temp 97.9 97.9 Pulse 96 85 Resp 18 B/P (MAP) 181/145 (157) 144/55 Pulse Ox 97 97 O2 Delivery Room Air Room Air Intake and Output 06/29/17 06/29/17 06/30/17 15:00 23:00 07:00 Intake Total 360 ml 1904 ml Output Total 450 ml 2320 ml Balance -90 ml -416 ml JESSICA FLANAGAN MD Jun 30, 2017 10:57
[2017-06-30 11:00] VITALS: BP 138/60
[2017-06-30] MEDS: POTASSIUM CHLORIDE 10 MEQ TABLET.ER. PO SCH (12:54)
[2017-06-30 15:00] VITALS: BP 141/68
[2017-06-30 19:00] VITALS: BP 136/57
[2017-06-30] MEDS: AMITRIPTYLINE HCL 10 MG TABLET. PO SCH (21:05)
[2017-06-30] MEDS: ACETAMINOPHEN 500 MG TABLET PO SCH (21:05)
[2017-06-30] MEDS: PERPHENAZINE 2 MG TABLET PO SCH (21:05)
[2017-06-30 23:00] VITALS: BP 155/66
[2017-07-01 03:00] VITALS: BP 154/64
[2017-07-01] MEDS: PIPERACILLIN/TAZO IV Push 3.375 GM VIAL. IVP SCH ×4 (04:23→22:00)
[2017-07-01] MEDS: traMADol 50 MG TABLET PO PRN ×4 (05:34→16:59)
[2017-07-01 07:00] VITALS: BP 144/58
[2017-07-01] MEDS: LACTOBACILLUS RHAMNOSUS GG 1 CAPSULE. PO SCH ×3 (08:41→21:25)
[2017-07-01] MEDS: hydroCHLOROthiazide 12.5 MG CAPSULE PO SCH (08:41)
[2017-07-01] MEDS: MULTIVITAMIN with MINERAL TABLET. PO SCH (08:41)
[2017-07-01] MEDS: FLUCONAZOLE 100 MG TABLET. PO SCH (08:41)
[2017-07-01] MEDS: ASCORBIC ACID 500 MG TABLET PO SCH (08:41)
[2017-07-01] MEDS: POTASSIUM CHLORIDE 10 MEQ TABLET.ER. PO SCH (08:42)
[2017-07-01] MEDS: METOPROLOL SUCC 24HR ER 50 MG TAB.ER.24H. PO SCH (08:42)
[2017-07-01] MEDS: FERROUS SULFATE 325 MG TABLET. PO SCH (08:43)
[2017-07-01] MEDS: AMINO AC 3%/ELECTROLYTE/GLYCER 1,000 ML IV SCH ×2 (08:43→21:40)
[2017-07-01] MEDS: CHOLESTYRAMINE/ASPARTAME 4 GM PACKET PO SCH ×2 (08:44→21:23)
[2017-07-01] MEDS: VANCOMYCIN 125 MG/2.5 ML ORAL SOLUTION. PO SCH ×4 (08:53→21:24)
--- NOTE | 2017-07-01 10:23 | PDOC ---
Infectious Disease Note Subjective Subjective feeling better ROS ROS GEN: Denies fevers, chills, sweats HEENT: Denies blurred vision, sore throat CV: Denies chest pain RESP: Denies shortness of air, cough GI: Denies n/v/d NEURO: Denies confusion, dizziness MSK: Denies weakness, joint pain/swelling Vital Sign Vital Signs Vital Signs Date Time Temp Pulse Resp B/P (MAP) Pulse Ox O2 Delivery O2 Flow Rate FiO2 07/01/17 10:12 95 Room Air 2.0 07/01/17 08:42 81 144/58 07/01/17 07:00 97.7 16 97.7 Physical Exam PHYSICAL EXAM GENERAL: NAD, Alert HEENT: PERRL, OC/OP NECK: Supple, no JVD, no LN LUNGS: Clear HEART: S1S2, no gallop, no murmur ABD: Soft, NT, no organomegaly, no rebound EXT: No edema, no cyanosis PAPER FINISHER: Alert, 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, no focal neurologic deficit SKIN: No rash IV: ok Labs Micro ANAEROBIC-AEROBIC CULTURE PENDING ANAEROBIC RES 1 PENDING AEROBIC CULT Preliminary Preliminary report AEROBIC RES 1 Preliminary Gram negative rods Heavy growth Performed at: [address] [id number] Pressure Controller: Lydia Madden MD, Phone: [phone] AEROBIC RES 2 Preliminary Gram negative rods Heavy growth AEROBIC RES 4 Preliminary Yeast Heavy growth Request for further identification must be made within 1 week. Performed at: [address] [id number] Pressure Controller: Lydia Madden MD, Phone: [phone] Objective Assessment Leukocytosis - UTI - POA (06/19) Klebsiella Res to Amp/Quinolones/Bactrim Diverticular abscess - Pans E. coli and bacteroides (06/20). ? Ovary and bladder involved with Tubo-ovarian abscess ? CV fistula - s/p drain, 06/20 Loose stool -C-diff + 06/22 (not paged) primary responded Perf viscous - declined surgery H/o SVT Plan Plan of Care Cont Zosyn Po Vanc Cont probiotics F/u labs diflucan likely will need surgery with diverting colostomy, d/w pt , she is still not ready JAM RUSSELL MD Jul 01, 2017 10:23
--- NOTE | 2017-07-01 10:50 | PDOC ---
PROGRESS NOTES Subjective Subjective Patient reports loose stools continue but not worse. Fair appetite. Objective Objective Vital Signs Date Time Temp Pulse Resp B/P (MAP) Pulse Ox O2 Delivery O2 Flow Rate FiO2 07/01/17 10:12 95 Room Air 2.0 07/01/17 08:42 81 144/58 07/01/17 07:00 97.7 16 97.7 Intake and Output 07/01/17 06:59 Intake Total 2508 ml Output Total 1210 ml Balance 1298 ml Intake Oral 650 ml IV Total 1858 ml Urine/Stool Mix 1210 ml # Voids 7 # Bowel Movements 11 Physical Exam Abdomen: Normal bowel sounds, Soft, Other (mild diffuse TTP) Heart: Regular rate Extremities: No edema General: Alert, Oriented X3, No acute distress Lungs: Clear to auscultation Assessment Assessment Problems Medical Problems: (1) Diverticulitis large intestine Status: Acute (2) Diverticulitis of both large and small intestine with abscess without bleeding Status: Acute Plan Plan of Care 1. Abscess with UTI - stable, drainage decreasing, continue Zosyn per ID. 2. C difficile colitis - stable, continue po Vancomycin. 3. hypokalemia - continue po replacement, check lab in AM. 4. HTN/MV prolapse - stable, continue home meds. 5. chronic anxiety - stable with home meds. 6. malnutrition - chart states she is eating 75-100% of her meals but patient states she is not eating that much. Encouraged to call the kitchen to ask for whatever sounds good to her. Continue PPN for now. Comment Review of Relevant I have reviewed the following items mariusz (where applicable) has been applied. Labs Laboratory Tests Test 06/30/17 05:05 White Blood Count 13.5 x10^3/uL (4.0-11.0) Red Blood Count 2.83 x10^6/uL (3.50-5.40) Hemoglobin 8.5 g/dL (12.0-15.5) Hematocrit 26.1 % (36.0-47.0) Mean Corpuscular Volume 92 fL (79-100) Mean Corpuscular Hemoglobin 30 pg (25-35) Mean Corpuscular Hemoglobin Concent 32 g/dL (31-37) Red Cell Distribution Width 13.4 % (11.5-14.5) Platelet Count 540 x10^3/uL (140-400) Neutrophils (%) (Auto) 68 % (31-73) Lymphocytes (%) (Auto) 24 % (24-48) Monocytes (%) (Auto) 7 % (0-9) Eosinophils (%) (Auto) 1 % (0-3) Basophils (%) (Auto) 0 % (0-3) Neutrophils # (Auto) 9.1 x10^3uL (1.8-7.7) Lymphocytes # (Auto) 3.3 x10^3/uL (1.0-4.8) Monocytes # (Auto) 0.9 x10^3/uL (0.0-1.1) Eosinophils # (Auto) 0.2 x10^3/uL (0.0-0.7) Basophils # (Auto) 0.1 x10^3/uL (0.0-0.2) Microbiology 06/19/17 Blood Culture - Final, Complete NO GROWTH AFTER 5 DAYS 06/19/17 Urine Culture - Final, Complete 06/19/17 Urine Culture Result 1 (KEELEY) - Final, Complete 06/19/17 Antimicrobic Susceptibility - Final, Complete 06/27/17 Gram Stain - Final, Complete Medications Current Medications Ondansetron HCl (Zofran) 4 mg 1X ONCE IV Last administered on 06/19/17 13:43 ; Start 06/19/17 at 13:15; Stop 06/19/17 at 13:17; Status DC Sodium Chloride 1,000 ml @ 1,000 mls/hr 1X ONCE IV Last administered on 06/19 13:43; Start 06/19/17 at 13:15; Stop 06/19/17 at 14:14; Status DC Piperacillin Sod/ Tazobactam Sod (Zosyn Per Pharmacy) 1 each PRN DAILY PRN [facility] SEE COMMENTS; Start 06/19/17 at 14:30; Stop 06/23/17 at 08:50; Status DC Metronidazole 100 ml @ 100 mls/hr Q12HR IV Last administered on 06/24/17 08: 44; Start 06/19/17 at 14:30; Stop 06/24/17 at 10:20; Status DC Piperacillin Sod/ Tazobactam Sod (Zosyn) 3.375 gm 1X ONCE IVP Last administered on 06/19/17 14:49; Start 06/19/17 at 15:00; Stop 06/19/17 at 15 :01; Status DC Sodium Chloride 1,000 ml @ 1,000 mls/hr 1X ONCE IV Last administered on 06/19 15:00; Start 06/19/17 at 15:00; Stop 06/19/17 at 15:59; Status DC Ondansetron HCl (Zofran) 4 mg PRN Q8HRS PRN IV NAUSEA/VOMITING; Start at 15:00; Stop 06/20/17 at 14:59; Status DC Morphine Sulfate 4 mg PRN Q2HR PRN IV PAIN Last administered on 06/20/17 00: 53; Start 06/19/17 at 15:00; Stop 06/20/17 at 14:59; Status DC Sodium Chloride 1,000 ml @ 125 mls/hr Q8H IV Last administered on 06/20/17 10:48; Start 06/19/17 at 14:58; Stop 06/20/17 at 14:57; Status DC Piperacillin Sod/ Tazobactam Sod (Zosyn) 2.25 gm Q6HRS IVP Last administered on 06/23/17 06:28; Start 06/19/17 at 22:00; Stop 06/23/17 at 08:50; Status DC Acetaminophen (Tylenol) 500 mg HS PO Last administered on 06/30/17 21:05; Start 06/20/17 at 21:00 Tramadol HCl (Ultram) 50 mg PRN Q6HRS PRN PO PAIN Last administered on 08:53; Start 06/20/17 at 09:00 Multivitamins (Thera M Plus) 1 tab DAILY PO Last administered on 07/01/17 08: 41; Start 06/20/17 at 09:00 Amitriptyline HCl (Elavil) 10 mg QHS PO Last administered on 06/30/17 21:05; Start 06/20/17 at 21:00 Metoprolol Succinate (Toprol Xl) 50 mg DAILY PO Last administered on 08:42; Start 06/20/17 at 09:00 Perphenazine (Trilafon) 2 mg QHS PO Last administered on 06/30/17 21:05; Start 06/20/17 at 21:00 Lidocaine/Sodium Bicarbonate (Buffered Lidocaine 1%) 20 ml STK-MED ONCE IJ ; Start 06/20/17 at 12:44; Stop 06/20/17 at 12:45; Status DC Fentanyl Citrate (Fentanyl 2ml Vial) 100 mcg STK-MED ONCE .ROUTE ; Start at 12:54; Stop 06/20/17 at 12:55; Status DC Midazolam HCl (Versed) 2 mg STK-MED ONCE .ROUTE ; Start 06/20/17 at 12:55; Stop 06/20/17 at 12:56; Status DC Lidocaine/Sodium Bicarbonate (Buffered Lidocaine 1%) 20 ml 1X ONCE IJ Last administered on 06/20/17 13:25; Start 06/20/17 at 13:00; Stop 06/20/17 at 13 :03; Status DC Midazolam HCl (Versed) 2 mg 1X ONCE IV Last administered on 06/20/17 13:25; Start 06/20/17 at 13:00; Stop 06/20/17 at 13:03; Status DC Fentanyl Citrate (Fentanyl 2ml Vial) 100 mcg 1X ONCE IV Last administered on 06/20/17 13:26; Start 06/20/17 at 13:00; Stop 06/20/17 at 13:03; Status DC Sodium Chloride 1,000 ml @ 125 mls/hr 1X ONCE IV ; Start 06/21/17 at 15:00; Stop 06/21/17 at 22:59; Status Cancel Sodium Chloride 1,000 ml @ 125 mls/hr Q8H IV Last administered on 06/23/17 10:01; Start 06/21/17 at 15:30; Stop 06/23/17 at 13:19; Status DC Ferrous Sulfate (Feosol) 325 mg DAILYWBKFT PO Last administered on 07/01/17 08:43; Start 06/22/17 at 17:00 Ascorbic Acid (Vitamin C) 500 mg DAILY PO Last administered on 07/01/17 08:41 ; Start 06/22/17 at 17:00 Lorazepam (Ativan) 2 mg 1X PRN PRN IV ANXIETY / AGITATION; Start 06/22/17 at 23:30; Status Cancel Diphenhydramine HCl (Benadryl) 25 mg 1X PRN PRN IVP INSOMNIA, MAY REPEAT IN 1HR ; Start 06/22/17 at 23:30; Status Cancel Acetaminophen (Acetaminophen Supp) 650 mg PRN Q6HRS PRN [place] MILD PAIN / TEMP; Start 06/22/17 at 23:30; Status Cancel Potassium Chloride (Klor-Con) 40 meq 1X ONCE PO Last administered on 06:52; Start 06/23/17 at 06:45; Stop 06/23/17 at 06:46; Status DC Lactobacillus Rhamnosus (Culturelle) 1 cap TID PO Last administered on 08:41; Start 06/23/17 at 09:00 Piperacillin Sod/ Tazobactam Sod 3.375 gm/Dextrose 50 ml @ 100 mls/hr Q6HRS IV ; Start 06/23/17 at 12:00; Stop 06/23/17 at 16:12; Status DC Piperacillin Sod/ Tazobactam Sod (Zosyn) 3.375 gm Q6HRS IVP Last administered on 06/23/17 16:14; Start 06/23/17 at 12:00; Stop 06/23/17 at 16:28; Status DC Iohexol (Omnipaque 240 Mg/ml) 30 ml 1X ONCE PO ; Start 06/23/17 at 13:30; Stop 06/23/17 at 13:32; Status DC Iohexol (Omnipaque 300 Mg/ml) 60 ml 1X ONCE IV Last administered on 15:20; Start 06/23/17 at 13:30; Stop 06/23/17 at 13:32; Status DC Info (Do NOT chart on this entry -- for MONITORING) 1 each PRN DAILY PRN [facility] SEE COMMENTS; Start 06/23/17 at 13:45; Stop 06/25/17 at 13:44; Status DC Piperacillin Sod/ Tazobactam Sod 3.375 gm/Dextrose 50 ml @ 100 mls/hr Q6H IV Last administered on 06/23/17 16:23; Start 06/23/17 at 16:00; Stop 06/23/17 at 16:26; Status DC Piperacillin Sod/ Tazobactam Sod (Zosyn) 3.375 gm Q6H IVP Last administered on 07/01/17 08:44; Start 06/23/17 at 22:00 Sodium Chloride 1,000 ml @ 100 mls/hr Q10H IV Last administered on 06/23/17 17:51; Start 06/23/17 at 17:00; Stop 06/23/17 at 22:00; Status DC Vancomycin HCl 125 mg [id number] PO Last administered on 07/01/17 08:53; Start 06/23/17 at 18:30 Potassium Chloride/Sodium Chloride 1,000 ml @ 75 mls/hr [id number] IV Last administered on 06/26/17 17:30; Start 06/23/17 at 22:30; Stop 06/27/17 at 17 :53; Status DC Potassium Chloride (Klor-Con) 20 meq TIDWMEALS PO Last administered on 17:28; Start 06/24/17 at 08:00; Stop 06/27/17 at 17:53; Status DC Fentanyl Citrate (Fentanyl 2ml Vial) 100 mcg STK-MED ONCE .ROUTE ; Start at 14:24; Stop 06/24/17 at 14:25; Status DC Midazolam HCl (Versed) 2 mg STK-MED ONCE .ROUTE ; Start 06/24/17 at 14:24; Stop 06/24/17 at 14:25; Status DC Lidocaine/Sodium Bicarbonate (Buffered Lidocaine 1%) 20 ml STK-MED ONCE IJ ; Start 06/24/17 at 14:25; Stop 06/24/17 at 14:26; Status DC Hydrochlorothiazide (Microzide) 12.5 mg DAILY PO Last administered on 08:41; Start 06/26/17 at 11:00 Lidocaine/Sodium Bicarbonate (Buffered Lidocaine 1%) 20 ml STK-MED ONCE IJ ; Start 06/27/17 at 12:15; Stop 06/27/17 at 12:16; Status DC Midazolam HCl (Versed) 5 mg STK-MED ONCE .ROUTE ; Start 06/27/17 at 12:24; Stop 06/27/17 at 12:25; Status DC Fentanyl Citrate (Fentanyl 5ml Vial) 250 mcg STK-MED ONCE .ROUTE ; Start at 12:24; Stop 06/27/17 at 12:25; Status DC Flumazenil (Romazicon) 0.5 mg STK-MED ONCE IV ; Start 06/27/17 at 12:24; Stop 06/27/17 at 12:25; Status DC Naloxone HCl (Narcan) 0.4 mg STK-MED ONCE .ROUTE ; Start 06/27/17 at 12:24; Stop 06/27/17 at 12:25; Status DC Lidocaine/Sodium Bicarbonate (Buffered Lidocaine 1%) 20 ml 1X ONCE IJ Last administered on 06/27/17 12:54; Start 06/27/17 at 12:45; Stop 06/27/17 at 12 :46; Status DC Midazolam HCl (Versed) 5 mg 1X ONCE IV Last administered on 06/27/17 12:54; Start 06/27/17 at 12:45; Stop 06/27/17 at 12:46; Status DC Fentanyl Citrate (Fentanyl 5ml Vial) 250 mcg 1X ONCE IV Last administered on 06/27/17 12:55; Start 06/27/17 at 12:45; Stop 06/27/17 at 12:46; Status DC Sodium Chloride 1,000 ml @ 75 mls/hr [id number] IV Last administered on 04:28; Start 06/27/17 at 18:00; Stop 06/28/17 at 17:45; Status DC Amino Acids/ Glycerin/ Electrolytes 1,000 ml @ 80 mls/hr [id number] IV Last administered on 07/01/17 08:43; Start 06/28/17 at 18:00 Fluconazole (Diflucan) 200 mg DAILY PO Last administered on 07/01/17 08:41; Start 06/29/17 at 09:30 Cholestyramine Resin (Questran Light) 4 gm BID PO Last administered on 08:44; Start 06/30/17 at 09:00 Potassium Chloride (Klor-Con) 10 meq DAILYWBKFT PO Last administered on 08:42; Start 06/30/17 at 11:30 Active Scripts Active Tramadol Hcl 50 Mg Tablet 1 Tab PO PRN Q6HRS PRN Reported Perphen-Amitrip 2 Mg-10 Mg Tab (Perphenazine/Amitriptyline Hcl) 1 Each Tablet 1 Each PO HS Acetaminophen 500 Mg Tablet 1 Tab PO HS [Metoprolol] 50 Mg PO DAILY [Trivale 210] 1 Tab PO HS PRN Centrum Silver Tablet (Multivits-Min/Fa/Lycopene/Lut) 1 Each Tablet 1 Each PO DAILY Aspirin 81 Mg Tab.chew 1 Tab PO QODAY Vitals/I & O Vital Sign - Last 24 Hours 06/30/17 06/30/17 06/30/17 06/30/17 11:00 15:00 17:24 19:00 Temp 98.1 98.1 99.0 98.1 98.1 99.0 Pulse 78 82 77 Resp 18 18 18 B/P (MAP) 138/60 (86) 141/68 (92) 136/57 (83) Pulse Ox 96 97 97 95 O2 Delivery Room Air Room Air Room Air Room Air 06/30/17 06/30/17 06/30/17 07/01/17 20:30 23:00 23:27 03:00 Temp 98.4 98.4 98.4 98.4 Pulse 80 77 Resp 18 18 18 B/P (MAP) 155/66 (95) 154/64 (94) Pulse Ox 96 96 O2 Delivery Room Air Room Air Room Air Room Air 07/01/17 07/01/17 07/01/17 07/01/17 05:34 06:35 07:00 08:42 Temp 97.7 97.7 Pulse 81 81 Resp 18 18 16 B/P (MAP) 144/58 (86) 144/58 Pulse Ox 95 O2 Delivery Room Air Room Air 07/01/17 07/01/17 08:53 10:12 Pulse Ox 95 O2 Delivery Room Air Room Air O2 Flow Rate 2.0 Intake and Output 06/30/17 06/30/17 07/01/17 14:59 22:59 06:59 Intake Total 650 ml 1858 ml Output Total 960 ml 250 ml Balance -960 ml 400 ml 1858 ml JESSICA FLANAGAN MD Jul 01, 2017 10:50
[2017-07-01 11:00] VITALS: BP 138/71
--- NOTE | 2017-07-01 14:19 | PDOC ---
PROGRESS NOTES Subjective Subjective "not feeling great", but appears comfortable Objective Objective Vital Signs Date Time Temp Pulse Resp B/P (MAP) Pulse Ox O2 Delivery O2 Flow Rate FiO2 07/01/17 11:00 97.8 81 16 138/71 (93) 96 Room Air 97.8 07/01/17 10:12 2.0 Intake and Output 07/01/17 07:00 Intake Total 2508 ml Output Total 1210 ml Balance 1298 ml Intake Oral 650 ml IV Total 1858 ml Urine/Stool Mix 1210 ml # Voids 7 # Bowel Movements 11 Physical Exam Abdomen: Soft (tender low abdomen with palpation, no peritoneal signs) General: Alert, Oriented X3, Cooperative Lungs: Clear to auscultation Neuro: Normal speech Psych/Mental Status: Mental status NL Assessment Assessment Problems Medical Problems: (1) Diverticulitis large intestine Status: Acute (2) Diverticulitis of both large and small intestine with abscess without bleeding Status: Acute Plan Plan of Care Continue with abx, drainage; likely FU CT Tuesday Comment Review of Relevant I have reviewed the following items mariusz (where applicable) has been applied. Labs Laboratory Tests Test 06/30/17 05:05 White Blood Count 13.5 x10^3/uL (4.0-11.0) Red Blood Count 2.83 x10^6/uL (3.50-5.40) Hemoglobin 8.5 g/dL (12.0-15.5) Hematocrit 26.1 % (36.0-47.0) Mean Corpuscular Volume 92 fL (79-100) Mean Corpuscular Hemoglobin 30 pg (25-35) Mean Corpuscular Hemoglobin Concent 32 g/dL (31-37) Red Cell Distribution Width 13.4 % (11.5-14.5) Platelet Count 540 x10^3/uL (140-400) Neutrophils (%) (Auto) 68 % (31-73) Lymphocytes (%) (Auto) 24 % (24-48) Monocytes (%) (Auto) 7 % (0-9) Eosinophils (%) (Auto) 1 % (0-3) Basophils (%) (Auto) 0 % (0-3) Neutrophils # (Auto) 9.1 x10^3uL (1.8-7.7) Lymphocytes # (Auto) 3.3 x10^3/uL (1.0-4.8) Monocytes # (Auto) 0.9 x10^3/uL (0.0-1.1) Eosinophils # (Auto) 0.2 x10^3/uL (0.0-0.7) Basophils # (Auto) 0.1 x10^3/uL (0.0-0.2) Microbiology 06/19/17 Blood Culture - Final, Complete NO GROWTH AFTER 5 DAYS 06/19/17 Urine Culture - Final, Complete 06/19/17 Urine Culture Result 1 (KEELEY) - Final, Complete 06/19/17 Antimicrobic Susceptibility - Final, Complete 06/27/17 Gram Stain - Final, Complete Medications Current Medications Ondansetron HCl (Zofran) 4 mg 1X ONCE IV Last administered on 06/19/17 13:43 ; Start 06/19/17 at 13:15; Stop 06/19/17 at 13:17; Status DC Sodium Chloride 1,000 ml @ 1,000 mls/hr 1X ONCE IV Last administered on 06/19 13:43; Start 06/19/17 at 13:15; Stop 06/19/17 at 14:14; Status DC Piperacillin Sod/ Tazobactam Sod (Zosyn Per Pharmacy) 1 each PRN DAILY PRN [facility] SEE COMMENTS; Start 06/19/17 at 14:30; Stop 06/23/17 at 08:50; Status DC Metronidazole 100 ml @ 100 mls/hr Q12HR IV Last administered on 06/24/17 08: 44; Start 06/19/17 at 14:30; Stop 06/24/17 at 10:20; Status DC Piperacillin Sod/ Tazobactam Sod (Zosyn) 3.375 gm 1X ONCE IVP Last administered on 06/19/17 14:49; Start 06/19/17 at 15:00; Stop 06/19/17 at 15 :01; Status DC Sodium Chloride 1,000 ml @ 1,000 mls/hr 1X ONCE IV Last administered on 06/19 15:00; Start 06/19/17 at 15:00; Stop 06/19/17 at 15:59; Status DC Ondansetron HCl (Zofran) 4 mg PRN Q8HRS PRN IV NAUSEA/VOMITING; Start at 15:00; Stop 06/20/17 at 14:59; Status DC Morphine Sulfate 4 mg PRN Q2HR PRN IV PAIN Last administered on 06/20/17 00: 53; Start 06/19/17 at 15:00; Stop 06/20/17 at 14:59; Status DC Sodium Chloride 1,000 ml @ 125 mls/hr Q8H IV Last administered on 06/20/17 10:48; Start 06/19/17 at 14:58; Stop 06/20/17 at 14:57; Status DC Piperacillin Sod/ Tazobactam Sod (Zosyn) 2.25 gm Q6HRS IVP Last administered on 06/23/17 06:28; Start 06/19/17 at 22:00; Stop 06/23/17 at 08:50; Status DC Acetaminophen (Tylenol) 500 mg HS PO Last administered on 06/30/17 21:05; Start 06/20/17 at 21:00 Tramadol HCl (Ultram) 50 mg PRN Q6HRS PRN PO PAIN Last administered on 08:53; Start 06/20/17 at 09:00 Multivitamins (Thera M Plus) 1 tab DAILY PO Last administered on 07/01/17 08: 41; Start 06/20/17 at 09:00 Amitriptyline HCl (Elavil) 10 mg QHS PO Last administered on 06/30/17 21:05; Start 06/20/17 at 21:00 Metoprolol Succinate (Toprol Xl) 50 mg DAILY PO Last administered on 08:42; Start 06/20/17 at 09:00 Perphenazine (Trilafon) 2 mg QHS PO Last administered on 06/30/17 21:05; Start 06/20/17 at 21:00 Lidocaine/Sodium Bicarbonate (Buffered Lidocaine 1%) 20 ml STK-MED ONCE IJ ; Start 06/20/17 at 12:44; Stop 06/20/17 at 12:45; Status DC Fentanyl Citrate (Fentanyl 2ml Vial) 100 mcg STK-MED ONCE .ROUTE ; Start at 12:54; Stop 06/20/17 at 12:55; Status DC Midazolam HCl (Versed) 2 mg STK-MED ONCE .ROUTE ; Start 06/20/17 at 12:55; Stop 06/20/17 at 12:56; Status DC Lidocaine/Sodium Bicarbonate (Buffered Lidocaine 1%) 20 ml 1X ONCE IJ Last administered on 06/20/17 13:25; Start 06/20/17 at 13:00; Stop 06/20/17 at 13 :03; Status DC Midazolam HCl (Versed) 2 mg 1X ONCE IV Last administered on 06/20/17 13:25; Start 06/20/17 at 13:00; Stop 06/20/17 at 13:03; Status DC Fentanyl Citrate (Fentanyl 2ml Vial) 100 mcg 1X ONCE IV Last administered on 06/20/17 13:26; Start 06/20/17 at 13:00; Stop 06/20/17 at 13:03; Status DC Sodium Chloride 1,000 ml @ 125 mls/hr 1X ONCE IV ; Start 06/21/17 at 15:00; Stop 06/21/17 at 22:59; Status Cancel Sodium Chloride 1,000 ml @ 125 mls/hr Q8H IV Last administered on 06/23/17 10:01; Start 06/21/17 at 15:30; Stop 06/23/17 at 13:19; Status DC Ferrous Sulfate (Feosol) 325 mg DAILYWBKFT PO Last administered on 07/01/17 08:43; Start 06/22/17 at 17:00 Ascorbic Acid (Vitamin C) 500 mg DAILY PO Last administered on 07/01/17 08:41 ; Start 06/22/17 at 17:00 Lorazepam (Ativan) 2 mg 1X PRN PRN IV ANXIETY / AGITATION; Start 06/22/17 at 23:30; Status Cancel Diphenhydramine HCl (Benadryl) 25 mg 1X PRN PRN IVP INSOMNIA, MAY REPEAT IN 1HR ; Start 06/22/17 at 23:30; Status Cancel Acetaminophen (Acetaminophen Supp) 650 mg PRN Q6HRS PRN [place] MILD PAIN / TEMP; Start 06/22/17 at 23:30; Status Cancel Potassium Chloride (Klor-Con) 40 meq 1X ONCE PO Last administered on 06:52; Start 06/23/17 at 06:45; Stop 06/23/17 at 06:46; Status DC Lactobacillus Rhamnosus (Culturelle) 1 cap TID PO Last administered on 13:25; Start 06/23/17 at 09:00 Piperacillin Sod/ Tazobactam Sod 3.375 gm/Dextrose 50 ml @ 100 mls/hr Q6HRS IV ; Start 06/23/17 at 12:00; Stop 06/23/17 at 16:12; Status DC Piperacillin Sod/ Tazobactam Sod (Zosyn) 3.375 gm Q6HRS IVP Last administered on 06/23/17 16:14; Start 06/23/17 at 12:00; Stop 06/23/17 at 16:28; Status DC Iohexol (Omnipaque 240 Mg/ml) 30 ml 1X ONCE PO ; Start 06/23/17 at 13:30; Stop 06/23/17 at 13:32; Status DC Iohexol (Omnipaque 300 Mg/ml) 60 ml 1X ONCE IV Last administered on 15:20; Start 06/23/17 at 13:30; Stop 06/23/17 at 13:32; Status DC Info (Do NOT chart on this entry -- for MONITORING) 1 each PRN DAILY PRN MC SEE COMMENTS; Start 06/23/17 at 13:45; Stop 06/25/17 at 13:44; Status DC Piperacillin Sod/ Tazobactam Sod 3.375 gm/Dextrose 50 ml @ 100 mls/hr Q6H IV Last administered on 06/23/17 16:23; Start 06/23/17 at 16:00; Stop 06/23/17 at 16:26; Status DC Piperacillin Sod/ Tazobactam Sod (Zosyn) 3.375 gm Q6H IVP Last administered on 07/01/17 08:44; Start 06/23/17 at 22:00 Sodium Chloride 1,000 ml @ 100 mls/hr Q10H IV Last administered on 06/23/17 17:51; Start 06/23/17 at 17:00; Stop 06/23/17 at 22:00; Status DC Vancomycin HCl 125 mg [id number] PO Last administered on 07/01/17 13:24; Start 06/23/17 at 18:30 Potassium Chloride/Sodium Chloride 1,000 ml @ 75 mls/hr [id number] IV Last administered on 06/26/17 17:30; Start 06/23/17 at 22:30; Stop 06/27/17 at 17 :53; Status DC Potassium Chloride (Klor-Con) 20 meq TIDWMEALS PO Last administered on 17:28; Start 06/24/17 at 08:00; Stop 06/27/17 at 17:53; Status DC Fentanyl Citrate (Fentanyl 2ml Vial) 100 mcg STK-MED ONCE .ROUTE ; Start at 14:24; Stop 06/24/17 at 14:25; Status DC Midazolam HCl (Versed) 2 mg STK-MED ONCE .ROUTE ; Start 06/24/17 at 14:24; Stop 06/24/17 at 14:25; Status DC Lidocaine/Sodium Bicarbonate (Buffered Lidocaine 1%) 20 ml STK-MED ONCE IJ ; Start 06/24/17 at 14:25; Stop 06/24/17 at 14:26; Status DC Hydrochlorothiazide (Microzide) 12.5 mg DAILY PO Last administered on 08:41; Start 06/26/17 at 11:00 Lidocaine/Sodium Bicarbonate (Buffered Lidocaine 1%) 20 ml STK-MED ONCE IJ ; Start 06/27/17 at 12:15; Stop 06/27/17 at 12:16; Status DC Midazolam HCl (Versed) 5 mg STK-MED ONCE .ROUTE ; Start 06/27/17 at 12:24; Stop 06/27/17 at 12:25; Status DC Fentanyl Citrate (Fentanyl 5ml Vial) 250 mcg STK-MED ONCE .ROUTE ; Start at 12:24; Stop 06/27/17 at 12:25; Status DC Flumazenil (Romazicon) 0.5 mg STK-MED ONCE IV ; Start 06/27/17 at 12:24; Stop 06/27/17 at 12:25; Status DC Naloxone HCl (Narcan) 0.4 mg STK-MED ONCE .ROUTE ; Start 06/27/17 at 12:24; Stop 06/27/17 at 12:25; Status DC Lidocaine/Sodium Bicarbonate (Buffered Lidocaine 1%) 20 ml 1X ONCE IJ Last administered on 06/27/17 12:54; Start 06/27/17 at 12:45; Stop 06/27/17 at 12 :46; Status DC Midazolam HCl (Versed) 5 mg 1X ONCE IV Last administered on 06/27/17 12:54; Start 06/27/17 at 12:45; Stop 06/27/17 at 12:46; Status DC Fentanyl Citrate (Fentanyl 5ml Vial) 250 mcg 1X ONCE IV Last administered on 06/27/17 12:55; Start 06/27/17 at 12:45; Stop 06/27/17 at 12:46; Status DC Sodium Chloride 1,000 ml @ 75 mls/hr [id number] IV Last administered on 04:28; Start 06/27/17 at 18:00; Stop 06/28/17 at 17:45; Status DC Amino Acids/ Glycerin/ Electrolytes 1,000 ml @ 80 mls/hr [id number] IV Last administered on 07/01/17 08:43; Start 06/28/17 at 18:00 Fluconazole (Diflucan) 200 mg DAILY PO Last administered on 07/01/17 08:41; Start 06/29/17 at 09:30 Cholestyramine Resin (Questran Light) 4 gm BID PO Last administered on 08:44; Start 06/30/17 at 09:00 Potassium Chloride (Klor-Con) 10 meq DAILYWBKFT PO Last administered on 08:42; Start 06/30/17 at 11:30 Active Scripts Active Tramadol Hcl 50 Mg Tablet 1 Tab PO PRN Q6HRS PRN Reported Perphen-Amitrip 2 Mg-10 Mg Tab (Perphenazine/Amitriptyline Hcl) 1 Each Tablet 1 Each PO HS Acetaminophen 500 Mg Tablet 1 Tab PO HS [Metoprolol] 50 Mg PO DAILY [Trivale 210] 1 Tab PO HS PRN Centrum Silver Tablet (Multivits-Min/Fa/Lycopene/Lut) 1 Each Tablet 1 Each PO DAILY Aspirin 81 Mg Tab.chew 1 Tab PO QODAY Vitals/I & O Vital Sign - Last 24 Hours 06/30/17 06/30/17 06/30/17 06/30/17 15:00 17:24 19:00 20:30 Temp 98.1 99.0 98.1 99.0 Pulse 82 77 Resp 18 18 B/P (MAP) 141/68 (92) 136/57 (83) Pulse Ox 97 97 95 O2 Delivery Room Air Room Air Room Air Room Air 06/30/17 06/30/17 07/01/17 07/01/17 23:00 23:27 03:00 05:34 Temp 98.4 98.4 98.4 98.4 Pulse 80 77 Resp 18 18 18 18 B/P (MAP) 155/66 (95) 154/64 (94) Pulse Ox 96 96 O2 Delivery Room Air Room Air Room Air Room Air 07/01/17 07/01/17 07/01/17 07/01/17 06:35 07:00 07:30 08:42 Temp 97.7 97.7 Pulse 81 81 Resp 18 16 B/P (MAP) 144/58 (86) 144/58 Pulse Ox 95 O2 Delivery Room Air Room Air O2 Flow Rate 2.0 07/01/17 07/01/17 07/01/17 08:53 10:12 11:00 Temp 97.8 97.8 Pulse 81 Resp 16 B/P (MAP) 138/71 (93) Pulse Ox 95 96 O2 Delivery Room Air Room Air Room Air O2 Flow Rate 2.0 Intake and Output 06/30/17 06/30/17 07/01/17 15:00 23:00 07:00 Intake Total 650 ml 1858 ml Output Total 960 ml 250 ml Balance -960 ml 400 ml 1858 ml BENNY HORN MD Jul 01, 2017 14:19
[2017-07-01 15:00] VITALS: BP 141/63
[2017-07-01 19:00] VITALS: BP 136/56
[2017-07-01] MEDS: PERPHENAZINE 2 MG TABLET PO SCH (21:25)
[2017-07-01] MEDS: AMITRIPTYLINE HCL 10 MG TABLET. PO SCH (21:25)
[2017-07-01] MEDS: ACETAMINOPHEN 500 MG TABLET PO SCH (21:25)
[2017-07-01 23:00] VITALS: BP 134/59
[2017-07-02] VITALS (7 sets, daily range): BP systolic 120–154; BP diastolic 53–70
[2017-07-02] MEDS: PIPERACILLIN/TAZO IV Push 3.375 GM VIAL. IVP SCH ×4 (03:57→22:00)
[2017-07-02 04:49] LABS: HEMATOCRIT 25.8 % (36.0-47.0); HEMOGLOBIN 8.5 g/dL (12.0-15.5); RED BLOOD COUNT 2.85 x10^6/uL (3.50-5.40); RED CELL DISTRIBUTION WIDTH 13.5 % (11.5-14.5); WHITE BLOOD COUNT 15.9 x10^3/uL (4.0-11.0)
[2017-07-02 04:58] LABS: CALCIUM 8.6 mg/dL (8.5-10.1); CREATININE 1.3 mg/dL (0.6-1.0); GFR 39.6; POTASSIUM 4.6 mmol/L (3.5-5.1)
[2017-07-02] MEDS: VANCOMYCIN 125 MG/2.5 ML ORAL SOLUTION. PO SCH ×4 (09:34→20:33)
[2017-07-02] MEDS: traMADol 50 MG TABLET PO PRN (09:34)
[2017-07-02] MEDS: FLUCONAZOLE 100 MG TABLET. PO SCH (09:35)
[2017-07-02] MEDS: LACTOBACILLUS RHAMNOSUS GG 1 CAPSULE. PO SCH ×3 (09:35→20:32)
[2017-07-02] MEDS: ASCORBIC ACID 500 MG TABLET PO SCH (09:35)
[2017-07-02] MEDS: METOPROLOL SUCC 24HR ER 50 MG TAB.ER.24H. PO SCH (09:36)
[2017-07-02] MEDS: hydroCHLOROthiazide 12.5 MG CAPSULE PO SCH (09:36)
[2017-07-02] MEDS: MULTIVITAMIN with MINERAL TABLET. PO SCH (09:36)
[2017-07-02] MEDS: FERROUS SULFATE 325 MG TABLET. PO SCH (09:36)
[2017-07-02] MEDS: POTASSIUM CHLORIDE 10 MEQ TABLET.ER. PO SCH (09:37)
[2017-07-02] MEDS: CHOLESTYRAMINE/ASPARTAME 4 GM PACKET PO SCH ×2 (09:38→20:33)
[2017-07-02] MEDS: AMINO AC 3%/ELECTROLYTE/GLYCER 1,000 ML IV SCH ×2 (12:44→20:33)
--- NOTE | 2017-07-02 12:46 | PDOC ---
PROGRESS NOTES Subjective Pain 5/10, seven watery stools yesterday but only 3 so far today. still sitting on commode when she eats as diarrhea will come without warning. No fever, chills, night sweats, some discomfort with drain when in chair so prefers to be in bed Objective Afebrile BP: 120/70 General: NAD, pleasant Heart: RRR Lungs: CTAB Abd: tender lower quadrants, no rebound, no distension Ext: no edema Skin: no breakdown, tolerating IV but some irritation from tape WBC: up to 15.9 Hgb: stable at 8.5 K+: 4.6 Creat: 1.3 Vital Signs Vital Signs Date Time Temp Pulse Resp B/P (MAP) Pulse Ox O2 Delivery O2 Flow Rate FiO2 07/02/17 11:28 97.9 82 16 120/70 (87) 100 97.9 07/02/17 09:34 Room Air 07/01/17 10:12 2.0 I & O Intake and Output 07/02/17 06:59 Intake Total 1660 ml Output Total 2000 ml Balance -340 ml Intake Oral 700 ml IV Total 960 ml Output Urine Total 2000 ml # Voids 4 # Bowel Movements 2 Assessment and Plan 1. Sepsis from diverticular abscess from perforated diverticulum, s/p IR drain placement x 2, she refused surgery, second set of cultures also growing E.coli and B.frag. Repeat imaging studies on Tuesday 2. UTI - separate bacteria from abscess per cultures 3. chronic anxiety 4. mitral valve prolapse with hx of SVT 5. diarrhea, C.diff positive, on lactobacillus and oral vancomycin, stool still watery 6. hypokalemia from diarrhea, on oral supplement 7. moderate protein malnutrition from illness, starting to advance diet, causing atelectasis and pleural fluid in lungs Problems: Zandra CUELLAR MD Jul 02, 2017 12:46
--- NOTE | 2017-07-02 15:06 | PDOC ---
SURGICAL PROGRESS NOTE Subjective Pt with c/o dull ache, multiple stools, can't sit secondary to drain Vital Signs Vital Signs Date Time Temp Pulse Resp B/P (MAP) Pulse Ox O2 Delivery O2 Flow Rate FiO2 07/02/17 11:28 97.9 82 16 120/70 (87) 100 97.9 07/02/17 10:34 Room Air 07/01/17 10:12 2.0 I&O Intake and Output 07/02/17 07:00 Intake Total 1660 ml Output Total 2000 ml Balance -340 ml Intake Oral 700 ml IV Total 960 ml Output Urine Total 2000 ml # Voids 4 # Bowel Movements 2 General: Alert, Oriented X3, Cooperative, No acute distress Abdomen: Soft, Other (min TTP) Labs Laboratory Tests Test 07/02/17 04:25 White Blood Count 15.9 x10^3/uL (4.0-11.0) Red Blood Count 2.85 x10^6/uL (3.50-5.40) Hemoglobin 8.5 g/dL (12.0-15.5) Hematocrit 25.8 % (36.0-47.0) Mean Corpuscular Volume 91 fL (79-100) Mean Corpuscular Hemoglobin 30 pg (25-35) Mean Corpuscular Hemoglobin Concent 33 g/dL (31-37) Red Cell Distribution Width 13.5 % (11.5-14.5) Platelet Count 615 x10^3/uL (140-400) Sodium Level 134 mmol/L (136-145) Potassium Level 4.6 mmol/L (3.5-5.1) Chloride Level 100 mmol/L (98-107) Carbon Dioxide Level 31 mmol/L (21-32) Anion Gap 3 (6-14) Blood Urea Nitrogen 20 mg/dL (7-20) Creatinine 1.3 mg/dL (0.6-1.0) Estimated GFR (Cockcroft-Gault) 39.6 Glucose Level 96 mg/dL (70-99) Calcium Level 8.6 mg/dL (8.5-10.1) Laboratory Tests Test 07/02/17 04:25 White Blood Count 15.9 x10^3/uL (4.0-11.0) Red Blood Count 2.85 x10^6/uL (3.50-5.40) Hemoglobin 8.5 g/dL (12.0-15.5) Hematocrit 25.8 % (36.0-47.0) Mean Corpuscular Volume 91 fL (79-100) Mean Corpuscular Hemoglobin 30 pg (25-35) Mean Corpuscular Hemoglobin Concent 33 g/dL (31-37) Red Cell Distribution Width 13.5 % (11.5-14.5) Platelet Count 615 x10^3/uL (140-400) Sodium Level 134 mmol/L (136-145) Potassium Level 4.6 mmol/L (3.5-5.1) Chloride Level 100 mmol/L (98-107) Carbon Dioxide Level 31 mmol/L (21-32) Anion Gap 3 (6-14) Blood Urea Nitrogen 20 mg/dL (7-20) Creatinine 1.3 mg/dL (0.6-1.0) Estimated GFR (Cockcroft-Gault) 39.6 Glucose Level 96 mg/dL (70-99) Calcium Level 8.6 mg/dL (8.5-10.1) Problem List Problems Medical Problems: (1) Diverticulitis large intestine Status: Acute (2) Diverticulitis of both large and small intestine with abscess without bleeding Status: Acute Assessment/Plan complicated diverticulitis Problems: ZEYNEP GARCIA MD Jul 02, 2017 15:06
--- NOTE | 2017-07-02 17:15 | PDOC ---
Infectious Disease Note Subjective Subjective Tolerating soft diet 4 loose stools so far today Denies N/V/cramps ROS ROS GEN: Denies fevers, chills, sweats CV: Denies chest pain RESP: Denies shortness of air, cough Vital Sign Vital Signs Vital Signs Date Time Temp Pulse Resp B/P (MAP) Pulse Ox O2 Delivery O2 Flow Rate FiO2 07/02/17 11:28 97.9 82 16 120/70 (87) 100 97.9 07/02/17 10:34 Room Air 07/01/17 10:12 2.0 Physical Exam PHYSICAL EXAM GENERAL: Propped up in bed, NAD LUNGS: Clear HEART: S1 and S2 ABD: Soft, drains x 2 (gluteal) EXT: No edema, no cyanosis FIRE PROTECTION SPECIALIST: Alert, 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, no focal neurologic deficit SKIN: No rash IV: ok Labs Lab Laboratory Tests Test 07/02/17 04:25 White Blood Count 15.9 x10^3/uL (4.0-11.0) Red Blood Count 2.85 x10^6/uL (3.50-5.40) Hemoglobin 8.5 g/dL (12.0-15.5) Hematocrit 25.8 % (36.0-47.0) Mean Corpuscular Volume 91 fL (79-100) Mean Corpuscular Hemoglobin 30 pg (25-35) Mean Corpuscular Hemoglobin Concent 33 g/dL (31-37) Red Cell Distribution Width 13.5 % (11.5-14.5) Platelet Count 615 x10^3/uL (140-400) Sodium Level 134 mmol/L (136-145) Potassium Level 4.6 mmol/L (3.5-5.1) Chloride Level 100 mmol/L (98-107) Carbon Dioxide Level 31 mmol/L (21-32) Anion Gap 3 (6-14) Blood Urea Nitrogen 20 mg/dL (7-20) Creatinine 1.3 mg/dL (0.6-1.0) Estimated GFR (Cockcroft-Gault) 39.6 Glucose Level 96 mg/dL (70-99) Calcium Level 8.6 mg/dL (8.5-10.1) Micro ANAEROBIC-AEROBIC CULTURE Preliminary Preliminary report ANAEROBIC RES 1 Preliminary Bacteroides species, B. fragilis group AEROBIC RES 1 Final Escherichia coli Antibiotic RSLT#1 Amoxicillin/Clavulanic Acid S Ampicillin S Cefepime S Ceftriaxone S Cefuroxime S Ciprofloxacin S Ertapenem S Gentamicin S Imipenem S Levofloxacin S Piperacillin S Tetracycline S Tobramycin S Trimethoprim/Sulfa S Objective Assessment Leukocytosis - Diverticular abscess - Pans E. coli and bacteroides (06/20). ? Ovary and bladder involved with Tubo-ovarian abscess ? CV fistula - s/p drain, 06/20 s/[address]-guided drainage of left sided perirectal abscess, 06/27, bacteroides and E.coli x 2 spp (R quinolones and Bactrim) Loose stool -C-diff + 06/22 (not paged) primary responded Perf viscous - declined surgery H/o SVT UTI - POA (06/19) Klebsiella Res to Amp/Quinolones/Bactrim. Treated Plan Plan of Care Cont Zosyn and fluconazole Po Vanc Cont probiotics and Questran F/u labs likely will need surgery with diverting colostomy Repeat CT on Tuesday Pt seen and examined. Chart reviewed in detail. Case discussed with ARMOR RECONNAISSANCE VEHICLE CREWMAN. Agree with above plan. BLANCHE DUMONT APRN Jul 02, 2017 17:15 PRETTY HANSON MD Jul 02, 2017 18:12
[2017-07-02] MEDS: ACETAMINOPHEN 500 MG TABLET PO SCH (20:32)
[2017-07-02] MEDS: AMITRIPTYLINE HCL 10 MG TABLET. PO SCH (20:33)
[2017-07-02] MEDS: PERPHENAZINE 2 MG TABLET PO SCH (20:33)
[2017-07-03 03:25] VITALS: BP 149/66
[2017-07-03] MEDS: PIPERACILLIN/TAZO IV Push 3.375 GM VIAL. IVP SCH ×4 (04:00→20:16)
[2017-07-03 05:21] LABS: BASO # 0.1 x10^3/uL (0.0-0.2); BASO % 1 % (0-3); EOS % 1 % (0-3); HEMATOCRIT 28.1 % (36.0-47.0); HEMOGLOBIN 9.3 g/dL (12.0-15.5); LYMPH % 22 % (24-48); MEAN CORPUSCULAR HEMOGLOBIN 30 pg (25-35); MEAN CORPUSCULAR HGB CONC 33 g/dL (31-37); MEAN CORPUSCULAR VOLUME 92 fL (79-100); MONO % 6 % (0-9); NEUT % 71 % (31-73); PLATELET COUNT 714 x10^3/uL (140-400); RED BLOOD COUNT 3.07 x10^6/uL (3.50-5.40); RED CELL DISTRIBUTION WIDTH 13.6 % (11.5-14.5)
[2017-07-03 07:00] VITALS: BP 147/66
[2017-07-03] MEDS: VANCOMYCIN 125 MG/2.5 ML ORAL SOLUTION. PO SCH ×4 (09:51→20:13)
[2017-07-03] MEDS: MULTIVITAMIN with MINERAL TABLET. PO SCH (09:52)
[2017-07-03] MEDS: FERROUS SULFATE 325 MG TABLET. PO SCH (09:52)
[2017-07-03] MEDS: CHOLESTYRAMINE/ASPARTAME 4 GM PACKET PO SCH ×2 (09:52→20:13)
[2017-07-03] MEDS: hydroCHLOROthiazide 12.5 MG CAPSULE PO SCH (09:53)
[2017-07-03] MEDS: FLUCONAZOLE 100 MG TABLET. PO SCH (09:53)
[2017-07-03] MEDS: ASCORBIC ACID 500 MG TABLET PO SCH (09:53)
[2017-07-03] MEDS: METOPROLOL SUCC 24HR ER 50 MG TAB.ER.24H. PO SCH (09:54)
[2017-07-03] MEDS: POTASSIUM CHLORIDE 10 MEQ TABLET.ER. PO SCH (09:56)
[2017-07-03] MEDS: traMADol 50 MG TABLET PO PRN (09:57)
[2017-07-03] MEDS: AMINO AC 3%/ELECTROLYTE/GLYCER 1,000 ML IV SCH ×2 (09:58→20:17)
[2017-07-03 11:00] VITALS: BP 139/64
--- NOTE | 2017-07-03 11:06 | PDOC ---
SURGICAL PROGRESS NOTE Subjective "tired" Vital Signs Vital Signs Date Time Temp Pulse Resp B/P (MAP) Pulse Ox O2 Delivery O2 Flow Rate FiO2 07/03/17 09:57 20 97 Room Air 07/03/17 09:54 88 147/66 07/03/17 07:00 98.0 98.0 I&O Intake and Output 07/03/17 07:00 Intake Total 1705 ml Output Total 650 ml Balance 1055 ml Intake Oral 1705 ml Output Urine Total 650 ml # Bowel Movements 1 PATIENT HAS A CALL: No General: Alert, No acute distress Abdomen: Soft Labs Laboratory Tests Test 07/02/17 04:25 07/03/17 04:00 White Blood Count 15.9 x10^3/uL (4.0-11.0) 14.0 x10^3/uL (4.0-11.0) Red Blood Count 2.85 x10^6/uL (3.50-5.40) 3.07 x10^6/uL (3.50-5.40) Hemoglobin 8.5 g/dL (12.0-15.5) 9.3 g/dL (12.0-15.5) Hematocrit 25.8 % (36.0-47.0) 28.1 % (36.0-47.0) Mean Corpuscular Volume 91 fL (79-100) 92 fL (79-100) Mean Corpuscular Hemoglobin 30 pg (25-35) 30 pg (25-35) Mean Corpuscular Hemoglobin Concent 33 g/dL (31-37) 33 g/dL (31-37) Red Cell Distribution Width 13.5 % (11.5-14.5) 13.6 % (11.5-14.5) Platelet Count 615 x10^3/uL (140-400) 714 x10^3/uL (140-400) Sodium Level 134 mmol/L (136-145) Potassium Level 4.6 mmol/L (3.5-5.1) Chloride Level 100 mmol/L (98-107) Carbon Dioxide Level 31 mmol/L (21-32) Anion Gap 3 (6-14) Blood Urea Nitrogen 20 mg/dL (7-20) Creatinine 1.3 mg/dL (0.6-1.0) Estimated GFR (Cockcroft-Gault) 39.6 Glucose Level 96 mg/dL (70-99) Calcium Level 8.6 mg/dL (8.5-10.1) Neutrophils (%) (Auto) 71 % (31-73) Lymphocytes (%) (Auto) 22 % (24-48) Monocytes (%) (Auto) 6 % (0-9) Eosinophils (%) (Auto) 1 % (0-3) Basophils (%) (Auto) 1 % (0-3) Neutrophils # (Auto) 10.0 x10^3uL (1.8-7.7) Lymphocytes # (Auto) 3.0 x10^3/uL (1.0-4.8) Monocytes # (Auto) 0.8 x10^3/uL (0.0-1.1) Eosinophils # (Auto) 0.1 x10^3/uL (0.0-0.7) Basophils # (Auto) 0.1 x10^3/uL (0.0-0.2) Laboratory Tests Test 07/03/17 04:00 White Blood Count 14.0 x10^3/uL (4.0-11.0) Red Blood Count 3.07 x10^6/uL (3.50-5.40) Hemoglobin 9.3 g/dL (12.0-15.5) Hematocrit 28.1 % (36.0-47.0) Mean Corpuscular Volume 92 fL (79-100) Mean Corpuscular Hemoglobin 30 pg (25-35) Mean Corpuscular Hemoglobin Concent 33 g/dL (31-37) Red Cell Distribution Width 13.6 % (11.5-14.5) Platelet Count 714 x10^3/uL (140-400) Neutrophils (%) (Auto) 71 % (31-73) Lymphocytes (%) (Auto) 22 % (24-48) Monocytes (%) (Auto) 6 % (0-9) Eosinophils (%) (Auto) 1 % (0-3) Basophils (%) (Auto) 1 % (0-3) Neutrophils # (Auto) 10.0 x10^3uL (1.8-7.7) Lymphocytes # (Auto) 3.0 x10^3/uL (1.0-4.8) Monocytes # (Auto) 0.8 x10^3/uL (0.0-1.1) Eosinophils # (Auto) 0.1 x10^3/uL (0.0-0.7) Basophils # (Auto) 0.1 x10^3/uL (0.0-0.2) Problem List Problems Medical Problems: (1) Diverticulitis large intestine Status: Acute (2) Diverticulitis of both large and small intestine with abscess without bleeding Status: Acute Assessment/Plan complicated diverticulitis repeat CT tomorrow Problems: SOPHIE FRYE MD Jul 03, 2017 11:06
--- NOTE | 2017-07-03 11:39 | PDOC ---
Infectious Disease Note Subjective Subjective Feeling ok ROS ROS GEN: Denies fevers, chills, sweats CV: Denies chest pain RESP: Denies shortness of air, cough GI: Denies n/v Vital Sign Vital Signs Vital Signs Date Time Temp Pulse Resp B/P (MAP) Pulse Ox O2 Delivery O2 Flow Rate FiO2 07/03/17 09:57 20 97 Room Air 07/03/17 09:54 88 147/66 07/03/17 07:00 98.0 98.0 Physical Exam PHYSICAL EXAM GENERAL: Propped up in bed, NAD LUNGS: Clear HEART: S1 and S2 ABD: Soft, drains x 2 (gluteal) EXT: No edema, no cyanosis CLAY WASHER: Alert, 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, no focal neurologic deficit SKIN: No rash IV: ok Labs Lab Laboratory Tests Test 07/03/17 04:00 White Blood Count 14.0 x10^3/uL (4.0-11.0) Red Blood Count 3.07 x10^6/uL (3.50-5.40) Hemoglobin 9.3 g/dL (12.0-15.5) Hematocrit 28.1 % (36.0-47.0) Mean Corpuscular Volume 92 fL (79-100) Mean Corpuscular Hemoglobin 30 pg (25-35) Mean Corpuscular Hemoglobin Concent 33 g/dL (31-37) Red Cell Distribution Width 13.6 % (11.5-14.5) Platelet Count 714 x10^3/uL (140-400) Neutrophils (%) (Auto) 71 % (31-73) Lymphocytes (%) (Auto) 22 % (24-48) Monocytes (%) (Auto) 6 % (0-9) Eosinophils (%) (Auto) 1 % (0-3) Basophils (%) (Auto) 1 % (0-3) Neutrophils # (Auto) 10.0 x10^3uL (1.8-7.7) Lymphocytes # (Auto) 3.0 x10^3/uL (1.0-4.8) Monocytes # (Auto) 0.8 x10^3/uL (0.0-1.1) Eosinophils # (Auto) 0.1 x10^3/uL (0.0-0.7) Basophils # (Auto) 0.1 x10^3/uL (0.0-0.2) Micro ANAEROBIC RES 1 Bacteroides species, B. fragilis group AEROBIC RES 1 Final Escherichia coli Antibiotic RSLT#1 Amoxicillin/Clavulanic Acid S Ampicillin S Cefepime S Ceftriaxone S Cefuroxime S Ciprofloxacin S Ertapenem S Gentamicin S Imipenem S Levofloxacin S Piperacillin S Tetracycline S Tobramycin S Trimethoprim/Sulfa S Objective Assessment Leukocytosis - Diverticular abscess - Pans E. coli and bacteroides (06/20). ? Ovary and bladder involved with Tubo-ovarian abscess ? CV fistula - s/p drain, 06/20 s/[address]-guided drainage of left sided perirectal abscess, 06/27, bacteroides and E.coli x 2 spp (R quinolones and Bactrim) Loose stool -C-diff + 06/22 (not paged) primary responded Perf viscous - declined surgery H/o SVT UTI - POA (06/19) Klebsiella Res to Amp/Quinolones/Bactrim. Treated Plan Plan of Care Cont Zosyn and fluconazole Po Vanc Cont probiotics and Questran F/u labs likely will need surgery with diverting colostomy Await CT on Tuesday Patient seen and examined. Case discussed with MOTOR VEHICLE CLERK. Chart reviewed in detail. Agree with above plan BLANCHE DUMONT APRN Jul 03, 2017 11:39 PRETTY HANSON MD Jul 03, 2017 16:31
--- NOTE | 2017-07-03 12:13 | PDOC ---
PROGRESS NOTES Subjective no overnight changes, looks and feels tired, 4 stools yesterday, 3 so far today per her recollection Objective Afebrile General: NAD, A&O Heart: RRR Lungs: CTAB Abd: soft, minimal RLQ tenderness Ext: no C/C/E WBC: 14 Hgb: 9.3 Vital Signs Vital Signs Date Time Temp Pulse Resp B/P (MAP) Pulse Ox O2 Delivery O2 Flow Rate FiO2 07/03/17 09:57 20 97 Room Air 07/03/17 09:54 88 147/66 07/03/17 07:00 98.0 98.0 07/01/17 10:12 2.0 I & O Intake and Output 07/03/17 07:00 Intake Total 1705 ml Output Total 650 ml Balance 1055 ml Intake Oral 1705 ml Output Urine Total 650 ml # Bowel Movements 1 Assessment and Plan 1. Sepsis from diverticular abscess from perforated diverticulum, s/p IR drain placement x 2, she refused surgery, second set of cultures also growing E.coli and B.frag. Repeat imaging studies on Tuesday 2. UTI - separate bacteria from abscess per cultures 3. chronic anxiety 4. mitral valve prolapse with hx of SVT 5. diarrhea, C.diff positive, on lactobacillus and oral vancomycin, stool still watery 6. hypokalemia from diarrhea, on oral supplement 7. moderate protein malnutrition from illness, on ProcalAmine Problems: Zandra CUELLAR MD Jul 03, 2017 12:13
[2017-07-03] MEDS: LACTOBACILLUS RHAMNOSUS GG 1 CAPSULE. PO SCH ×3 (13:02→20:14)
[2017-07-03 15:00] VITALS: BP 127/58
[2017-07-03 19:00] VITALS: BP 165/71
[2017-07-03] MEDS: ACETAMINOPHEN 500 MG TABLET PO SCH (20:13)
[2017-07-03] MEDS: AMITRIPTYLINE HCL 10 MG TABLET. PO SCH (20:13)
[2017-07-03] MEDS: PERPHENAZINE 2 MG TABLET PO SCH (20:14)
[2017-07-03 23:00] VITALS: BP 136/62
[2017-07-04 03:00] VITALS: BP 127/62
[2017-07-04] MEDS: PIPERACILLIN/TAZO IV Push 3.375 GM VIAL. IVP SCH ×4 (04:06→22:14)
[2017-07-04 05:37] LABS: CALCIUM 9.3 mg/dL (8.5-10.1); CREATININE 1.5 mg/dL (0.6-1.0); GFR 33.6; POTASSIUM 4.8 mmol/L (3.5-5.1)
[2017-07-04 07:00] VITALS: BP 124/68
[2017-07-04] MEDS: FERROUS SULFATE 325 MG TABLET. PO SCH (07:52)
[2017-07-04] MEDS: CHOLESTYRAMINE/ASPARTAME 4 GM PACKET PO SCH ×2 (07:52→21:21)
[2017-07-04] MEDS: FLUCONAZOLE 100 MG TABLET. PO SCH (07:52)
[2017-07-04] MEDS: LACTOBACILLUS RHAMNOSUS GG 1 CAPSULE. PO SCH ×3 (07:52→21:21)
[2017-07-04] MEDS: ASCORBIC ACID 500 MG TABLET PO SCH (07:53)
[2017-07-04] MEDS: METOPROLOL SUCC 24HR ER 50 MG TAB.ER.24H. PO SCH (07:53)
[2017-07-04] MEDS: POTASSIUM CHLORIDE 10 MEQ TABLET.ER. PO SCH (07:53)
[2017-07-04] MEDS: MULTIVITAMIN with MINERAL TABLET. PO SCH (07:53)
[2017-07-04] MEDS: VANCOMYCIN 125 MG/2.5 ML ORAL SOLUTION. PO SCH ×4 (07:54→21:21)
[2017-07-04] MEDS: hydroCHLOROthiazide 12.5 MG CAPSULE PO SCH (07:54)
[2017-07-04] MEDS: traMADol 50 MG TABLET PO PRN ×3 (08:02→21:32)
[2017-07-04] MEDS ORDERED: CONTRAST GIVEN MC PRN (08:45)
[2017-07-04] MEDS ORDERED: IOHEXOL 240 MG/ML 50ML VIAL. PO ONE (08:45)
--- NOTE | 2017-07-04 09:50 | PDOC ---
SURGICAL PROGRESS NOTE Subjective pain managed stools lessening Vital Signs Vital Signs Date Time Temp Pulse Resp B/P (MAP) Pulse Ox O2 Delivery O2 Flow Rate FiO2 07/04/17 08:02 Room Air 07/04/17 07:53 83 127/62 07/04/17 07:00 98.3 18 92 98.3 I&O Intake and Output 07/04/17 07:00 Intake Total 300 ml Balance 300 ml Intake Oral 300 ml # Voids 2 General: Alert, Oriented X3, Cooperative, No acute distress Abdomen: Soft, Other (suni serous, cloudy) Labs Laboratory Tests Test 07/03/17 04:00 07/04/17 03:30 White Blood Count 14.0 x10^3/uL (4.0-11.0) Red Blood Count 3.07 x10^6/uL (3.50-5.40) Hemoglobin 9.3 g/dL (12.0-15.5) Hematocrit 28.1 % (36.0-47.0) Mean Corpuscular Volume 92 fL (79-100) Mean Corpuscular Hemoglobin 30 pg (25-35) Mean Corpuscular Hemoglobin Concent 33 g/dL (31-37) Red Cell Distribution Width 13.6 % (11.5-14.5) Platelet Count 714 x10^3/uL (140-400) Neutrophils (%) (Auto) 71 % (31-73) Lymphocytes (%) (Auto) 22 % (24-48) Monocytes (%) (Auto) 6 % (0-9) Eosinophils (%) (Auto) 1 % (0-3) Basophils (%) (Auto) 1 % (0-3) Neutrophils # (Auto) 10.0 x10^3uL (1.8-7.7) Lymphocytes # (Auto) 3.0 x10^3/uL (1.0-4.8) Monocytes # (Auto) 0.8 x10^3/uL (0.0-1.1) Eosinophils # (Auto) 0.1 x10^3/uL (0.0-0.7) Basophils # (Auto) 0.1 x10^3/uL (0.0-0.2) Sodium Level 131 mmol/L (136-145) Potassium Level 4.8 mmol/L (3.5-5.1) Chloride Level 98 mmol/L (98-107) Carbon Dioxide Level 26 mmol/L (21-32) Anion Gap 7 (6-14) Blood Urea Nitrogen 26 mg/dL (7-20) Creatinine 1.5 mg/dL (0.6-1.0) Estimated GFR (Cockcroft-Gault) 33.6 Glucose Level 97 mg/dL (70-99) Calcium Level 9.3 mg/dL (8.5-10.1) Laboratory Tests Test 07/04/17 03:30 Sodium Level 131 mmol/L (136-145) Potassium Level 4.8 mmol/L (3.5-5.1) Chloride Level 98 mmol/L (98-107) Carbon Dioxide Level 26 mmol/L (21-32) Anion Gap 7 (6-14) Blood Urea Nitrogen 26 mg/dL (7-20) Creatinine 1.5 mg/dL (0.6-1.0) Estimated GFR (Cockcroft-Gault) 33.6 Glucose Level 97 mg/dL (70-99) Calcium Level 9.3 mg/dL (8.5-10.1) Problem List Problems Medical Problems: (1) Diverticulitis large intestine Status: Acute (2) Diverticulitis of both large and small intestine with abscess without bleeding Status: Acute Assessment/Plan Ct today Problems: MINGO CERVANTES MEDICAL INVESTIGATOR Jul 04, 2017 09:50
[2017-07-04 11:00] VITALS: BP 137/63
[2017-07-04] MEDS: AMINO AC 3%/ELECTROLYTE/GLYCER 1,000 ML IV SCH ×3 (11:56→21:24)
--- NOTE | 2017-07-04 12:14 | RAD ---
CT ABDOMEN AND PELVIS WITH ORAL CONTRAST History: follow up perforated diverticulitis Comparison: CT-guided drain placement dated 06/27/2017, CT abdomen and pelvis dated 06/23/2017. Technique: Helical CT of the abdomen and pelvis was performed from the lung bases through the ischial tuberosities. Axial and coronal reconstructions were obtained. Abdomen Findings: Right lower lobe calcified granuloma. The visualized lung bases are clear. Evaluation of visceral organs is limited without intravenous contrast. Unchanged left hepatic cyst. Additional right hepatic subcentimeter hypoattenuating lesions are better evaluated on prior CT with IV contrast. The spleen, pancreas, gallbladder, and bilateral adrenal glands are normal. Unchanged right renal cyst. Bilateral kidneys otherwise do not demonstrate focal abnormality. There is no hydronephrosis. Visualized loops of small bowel are normal. Moderate colonic diverticulosis. The remaining large bowel are otherwise normal. There is no evidence of bowel obstruction. Appendix appears within normal limits. There is no significant abdominal adenopathy. The abdominal aorta is normal in caliber. Moderate atherosclerosis of the abdominal aorta and its branches. Pelvis findings: Two posterior approach pigtail drains are seen in the pelvis. Interval decrease in size of the pelvic fluid collection. The left aspect currently measures 5.2 x 3.4 cm, previously 6.9 x 5.4 cm. The right aspect currently measures 4.2 x 3.4 cm, previously 5.1 x 4.3 cm. No extravasation of oral contrast into the fluid collection, although contrast only reaches the proximal cecum. Small focus of gas within the urinary bladder, although decreased compared to prior CT abdomen pelvis. Urinary bladder is otherwise normal. It is again difficult to distinguish the ovaries from the pelvic fluid collection. Small focus of air in the region of the vaginal canal (image 34, series 5). There is no significant pelvic or inguinal adenopathy. There is no acute bony abnormality. IMPRESSION: 1. Two posterior approach pigtail drains are seen in the pelvis as above. Interval decrease in size of the pelvic fluid collection. 2. Small focus of gas within the urinary bladder, although decreased compared to prior CT abdomen and pelvis. Findings again may relate to instrumentation, although colovesicular fistula is not excluded. 3. Small focus of air in the region of the vaginal canal. Colouterine or colovaginal fistula not excluded. It is again difficult to distinguish the ovaries from the pelvic fluid collection. PQRS Compliance Statement: One or more of the following individualized dose reduction techniques were utilized for this examination: 1. Automated exposure control 2. Adjustment of the mA and/or kV according to patient size 3. Use of iterative reconstruction technique
--- NOTE | 2017-07-04 14:04 | PDOC ---
Infectious Disease Note Subjective Subjective Feeling ok,tired loose bm is improving, no sob, ROS ROS GEN: Denies fevers, chills, sweats HEENT: Denies blurred vision, sore throat CV: Denies chest pain RESP: Denies shortness of air, cough GI: Denies n/v/d : Denies hematuria, dysuria ENDO: Denies weight changes NEURO: Denies confusion, dizziness MSK: Denies weakness, joint pain/swelling SKIN: Denies rash, pruritus Vital Sign Vital Signs Vital Signs Date Time Temp Pulse Resp B/P (MAP) Pulse Ox O2 Delivery O2 Flow Rate FiO2 07/04/17 13:56 Room Air 07/04/17 11:00 97.9 86 22 137/63 (87) 99 97.9 07/01/17 10:12 2.0 Physical Exam PHYSICAL EXAM GENERAL: pt in nad LUNGS: Clear HEART: S1 and S2 ABD: Soft, drains x 2 (gluteal) EXT: No edema, no cyanosis MACHINE DRILLER: Alert, 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, no focal neurologic deficit SKIN: No rash IV: ok Labs Lab Laboratory Tests Test 07/04/17 03:30 Sodium Level 131 mmol/L (136-145) Potassium Level 4.8 mmol/L (3.5-5.1) Chloride Level 98 mmol/L (98-107) Carbon Dioxide Level 26 mmol/L (21-32) Anion Gap 7 (6-14) Blood Urea Nitrogen 26 mg/dL (7-20) Creatinine 1.5 mg/dL (0.6-1.0) Estimated GFR (Cockcroft-Gault) 33.6 Glucose Level 97 mg/dL (70-99) Calcium Level 9.3 mg/dL (8.5-10.1) Micro Micro ANAEROBIC RES 1 Bacteroides species, B. fragilis group AEROBIC RES 1 Final Escherichia coli Antibiotic RSLT#1 Amoxicillin/Clavulanic Acid S Ampicillin S Cefepime S Ceftriaxone S Cefuroxime S Ciprofloxacin S Ertapenem S Gentamicin S Imipenem S Levofloxacin S Piperacillin S Tetracycline S Tobramycin S Trimethoprim/Sulfa S Objective Assessment Leukocytosis - slightly improved Diverticular abscess - Pans E. coli and bacteroides (06/20). ? Ovary and bladder involved with Tubo-ovarian abscess ? CV fistula - s/p drain, 06/20 s/[address]-guided drainage of left sided perirectal abscess, 06/27, bacteroides and E.coli x 2 spp (R quinolones and Bactrim) Loose stool -C-diff + 06/22 (not paged) primary responded Perf viscous - declined surgery H/o SVT UTI - POA (06/19) Klebsiella Res to Amp/Quinolones/Bactrim. 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
[2017-07-04 14:48] VITALS: BP 120/53
--- NOTE | 2017-07-04 17:55 | PDOC ---
PROGRESS NOTES Subjective CT imaging shows improvement in fluid collection but still suggests uterine and/ or bladder involvement, her pain is the same, she is getting more fatigued due to the diarrhea but says she only had 3-4 stools yesterday and she is eating some food and tolerating procalamine infusion through IV Objective Afebrile General: NAD, A&O Heart: RRR Lungs: CTAB Abd: soft, minimal RLQ tenderness Ext: trace edema, wearing TEDs, not wearing SCDs as she cannot get them off quick enough when diarrhea hits Vital Signs Vital Signs Date Time Temp Pulse Resp B/P (MAP) Pulse Ox O2 Delivery O2 Flow Rate FiO2 07/04/17 15:00 98 Room Air 2.0 07/04/17 14:48 97.8 75 22 120/53 (75) 97.8 I & O Intake and Output 07/04/17 07:00 Intake Total 300 ml Balance 300 ml Intake Oral 300 ml # Voids 2 Assessment and Plan 1. Sepsis/localized peritonitis/diverticular abscess from perforated diverticulum, s/p IR drain placement x 2, she refused surgery, second set of cultures also growing E.coli and B.frag. Repeat imaging studies done today 2. UTI - separate bacteria from abscess per cultures 3. chronic anxiety 4. mitral valve prolapse with hx of SVT 5. diarrhea, C.diff positive, on lactobacillus and oral vancomycin and Questran , stool still watery 6. hypokalemia from diarrhea, on oral supplement 7. moderate protein malnutrition from illness, on ProcalAmine Problems: Zandra CUELLAR MD Jul 04, 2017 17:55
[2017-07-04 20:00] VITALS: BP 123/57
[2017-07-04] MEDS: AMITRIPTYLINE HCL 10 MG TABLET. PO SCH (21:21)
[2017-07-04] MEDS: PERPHENAZINE 2 MG TABLET PO SCH (21:21)
[2017-07-04] MEDS: ACETAMINOPHEN 500 MG TABLET PO SCH (21:32)
[2017-07-04 23:30] VITALS: BP 119/43
[2017-07-05 03:28] VITALS: BP 123/52
[2017-07-05] MEDS: PIPERACILLIN/TAZO IV Push 3.375 GM VIAL. IVP SCH ×4 (04:00→22:47)
[2017-07-05 07:19] VITALS: BP 133/62
[2017-07-05] MEDS: CHOLESTYRAMINE/ASPARTAME 4 GM PACKET PO SCH ×2 (09:15→21:39)
[2017-07-05] MEDS: METOPROLOL SUCC 24HR ER 50 MG TAB.ER.24H. PO SCH (09:15)
[2017-07-05] MEDS: FERROUS SULFATE 325 MG TABLET. PO SCH (09:16)
[2017-07-05] MEDS: traMADol 50 MG TABLET PO PRN ×2 (09:16→21:40)
[2017-07-05] MEDS: POTASSIUM CHLORIDE 10 MEQ TABLET.ER. PO SCH (09:16)
[2017-07-05] MEDS: ASCORBIC ACID 500 MG TABLET PO SCH (09:16)
[2017-07-05] MEDS: FLUCONAZOLE 100 MG TABLET. PO SCH (09:17)
[2017-07-05] MEDS: hydroCHLOROthiazide 12.5 MG CAPSULE PO SCH (09:17)
[2017-07-05] MEDS: MULTIVITAMIN with MINERAL TABLET. PO SCH (09:17)
[2017-07-05] MEDS: VANCOMYCIN 125 MG/2.5 ML ORAL SOLUTION. PO SCH ×4 (09:17→21:41)
[2017-07-05] MEDS: AMINO AC 3%/ELECTROLYTE/GLYCER 1,000 ML IV SCH ×2 (09:18→21:50)
[2017-07-05 11:28] VITALS: BP 130/61
[2017-07-05] MEDS: LACTOBACILLUS RHAMNOSUS GG 1 CAPSULE. PO SCH ×3 (12:45→21:40)
--- NOTE | 2017-07-05 13:16 | PDOC ---
MINGO CERVANTES SITE AUDITOR 07/05/17 1316: SURGICAL PROGRESS NOTE Subjective tolerating diet diarrhea less Vital Signs Vital Signs Date Time Temp Pulse Resp B/P (MAP) Pulse Ox O2 Delivery O2 Flow Rate FiO2 07/05/17 11:28 98.6 86 22 130/61 (84) 98 Room Air 98.6 07/04/17 15:00 2.0 I&O Intake and Output 07/05/17 07:00 Intake Total 300 ml Output Total 500 ml Balance -200 ml Intake Oral 300 ml Output Urine Total 400 ml Drainage Total 100 ml General: Alert, Oriented X3, Cooperative, No acute distress Abdomen: Soft, Other (drains in place) Labs Laboratory Tests Test 07/04/17 03:30 Sodium Level 131 mmol/L (136-145) Potassium Level 4.8 mmol/L (3.5-5.1) Chloride Level 98 mmol/L (98-107) Carbon Dioxide Level 26 mmol/L (21-32) Anion Gap 7 (6-14) Blood Urea Nitrogen 26 mg/dL (7-20) Creatinine 1.5 mg/dL (0.6-1.0) Estimated GFR (Cockcroft-Gault) 33.6 Glucose Level 97 mg/dL (70-99) Calcium Level 9.3 mg/dL (8.5-10.1) Problem List Problems Medical Problems: (1) Diverticulitis large intestine Status: Acute (2) Diverticulitis of both large and small intestine with abscess without bleeding Status: Acute Assessment/Plan ct stable will review with Dr Frye Problems: SOPHIE FRYE MD 07/05/17 1505: SURGICAL PROGRESS NOTE Assessment/Plan d/w social service if Ms Iglesias prefers non operative care will need to transfer to [facility] Problems: MINGO CERVANTES APRN Jul 05, 2017 13:16 SOPHIE FRYE MD Jul 05, 2017 15:05
[2017-07-05 15:03] VITALS: BP 127/60
--- NOTE | 2017-07-05 17:25 | PDOC ---
PROGRESS NOTES Subjective Results of CT discussed with patient, symptoms essentially the same Objective Afebrile General: NAD, A&O Heart: RRR Lungs: CTAB Abd: soft, minimal RLQ tenderness Ext: trace edema J-P drains - minimal output Vital Signs Vital Signs Date Time Temp Pulse Resp B/P (MAP) Pulse Ox O2 Delivery O2 Flow Rate FiO2 07/05/17 15:03 97.9 91 22 127/60 (82) 98 Room Air 97.9 07/04/17 15:00 2.0 I & O Intake and Output 07/05/17 07:00 Intake Total 300 ml Output Total 500 ml Balance -200 ml Intake Oral 300 ml Output Urine Total 400 ml Drainage Total 100 ml Assessment and Plan 1. Sepsis/localized peritonitis/diverticular abscess from perforated diverticulum, s/p IR drain placement x 2, she refused surgery, second set of cultures also growing E.coli and B.frag. Repeat imaging studies discussed today , she may need a PICC and SNU for ongoing abx, will ask Case management to reassess 2. UTI - separate bacteria from abscess per cultures 3. chronic anxiety 4. mitral valve prolapse with hx of SVT 5. diarrhea, C.diff positive, on lactobacillus and oral vancomycin and Questran , stool still watery 6. hypokalemia from diarrhea, on oral supplement 7. moderate protein malnutrition from illness, on ProcalAmine Problems: Zandra CUELLAR MD Jul 05, 2017 17:25
[2017-07-05 19:00] VITALS: BP 127/62
--- NOTE | 2017-07-05 19:27 | PDOC ---
Infectious Disease Note Subjective Subjective Feeling ok,tired,feels pressure in the abdomen with meal intake still has somewhat loose bm but much improved, no sob, no abdominal pain ROS ROS GEN: Denies fevers, chills, sweats HEENT: Denies blurred vision, sore throat CV: Denies chest pain RESP: Denies shortness of air, cough GI: Denies n/v NEURO: Denies confusion, dizziness MSK: Denies weakness, joint pain/swelling Vital Sign Vital Signs Vital Signs Date Time Temp Pulse Resp B/P (MAP) Pulse Ox O2 Delivery O2 Flow Rate FiO2 07/05/17 15:03 97.9 91 22 127/60 (82) 98 Room Air 97.9 07/04/17 15:00 2.0 Physical Exam PHYSICAL EXAM GENERAL: pt in nad Heent anicteric NECK supple LUNGS: Clear HEART: S1 and S2 ABD: Soft, nontender, nondistended,drains x 2 (gluteal) EXT: No edema, no cyanosis GENERAL WAREHOUSE WORKER: Alert, 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, no focal neurologic deficit SKIN: No rash IV: ok Labs Lab reviewed Micro Micro ANAEROBIC RES 1 Bacteroides species, B. fragilis group AEROBIC RES 1 Final Escherichia coli Antibiotic RSLT#1 Amoxicillin/Clavulanic Acid S Ampicillin S Cefepime S Ceftriaxone S Cefuroxime S Ciprofloxacin S Ertapenem S Gentamicin S Imipenem S Levofloxacin S Piperacillin S Tetracycline S Tobramycin S Trimethoprim/Sulfa S Objective Assessment Diverticular abscess - Pans E. coli and bacteroides (06/20). ? Ovary and bladder involved with Tubo-ovarian abscess ? CV fistula - s/p drain, 06/20 s/[address]-guided drainage of left sided perirectal abscess, 06/27, bacteroides and E.coli x 2 spp (R quinolones and Bactrim) Repeat CT abdomen and pelvis report noted Loose stool -C-diff + 06/22 (not paged) primary responded Perf viscous - declined surgery H/o SVT UTI - POA (06/19) Klebsiella Res to Amp/Quinolones/Bactrim. 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 SUSIE RUSSELL MD Jul 05, 2017 19:27
[2017-07-05] MEDS: ACETAMINOPHEN 500 MG TABLET PO SCH (21:40)
[2017-07-05] MEDS: PERPHENAZINE 2 MG TABLET PO SCH (21:40)
[2017-07-05] MEDS: AMITRIPTYLINE HCL 10 MG TABLET. PO SCH (21:40)
[2017-07-05 22:45] VITALS: BP 127/55
[2017-07-06 03:00] VITALS: BP 129/59
[2017-07-06] MEDS: PIPERACILLIN/TAZO IV Push 3.375 GM VIAL. IVP SCH ×3 (04:32→17:42)
[2017-07-06] MEDS: AMINO AC 3%/ELECTROLYTE/GLYCER 1,000 ML IV SCH ×2 (04:34→06:29)
[2017-07-06 07:00] VITALS: BP 118/60
[2017-07-06] MEDS: VANCOMYCIN 125 MG/2.5 ML ORAL SOLUTION. PO SCH (09:00)
--- NOTE | 2017-07-06 09:41 | PDOC ---
Infectious Disease Note Subjective Subjective Feeling ok, still has somewhat loose bm 4 yesterday, 2 this am , no sob, no abdominal pain ROS ROS GEN: Denies fevers, chills, sweats HEENT: Denies blurred vision, sore throat CV: Denies chest pain RESP: Denies shortness of air, cough GI: Denies n/v/ NEURO: Denies confusion, dizziness MSK: Denies weakness, joint pain/swelling Vital Sign Vital Signs Vital Signs Date Time Temp Pulse Resp B/P (MAP) Pulse Ox O2 Delivery O2 Flow Rate FiO2 07/06/17 07:00 97.9 86 16 118/60 (79) 97 Room Air 97.9 Physical Exam PHYSICAL EXAM GENERAL: pt in nad Heent anicteric NECK supple LUNGS: Clear HEART: S1 and S2 ABD: Soft, nontender, nondistended,drains x 2 (gluteal) EXT: No edema, no cyanosis 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 fragilis group AEROBIC RES 1 Final Escherichia coli Antibiotic RSLT#1 Amoxicillin/Clavulanic Acid S Ampicillin S Cefepime S Ceftriaxone S Cefuroxime S Ciprofloxacin S Ertapenem S Gentamicin S Imipenem S Levofloxacin S Piperacillin S Tetracycline S Tobramycin S Trimethoprim/Sulfa S Objective Assessment Diverticular abscess - Pans E. coli and bacteroides (06/20). ? Ovary and bladder involved with Tubo-ovarian abscess possible EV /CV fistula - s/p drain, 06/20 s/[address]-guided drainage of left sided perirectal abscess, 06/27, bacteroides and E.coli x 2 spp (R quinolones and Bactrim) Repeat CT abdomen and pelvis noted, not resolving Loose stool -C-diff + 06/22 (not paged) primary responded Perf viscous - declined surgery H/o SVT UTI - POA (06/19) Klebsiella Res to Amp/Quinolones/Bactrim. Treated Plan Plan of Care Cont Zosyn Continue fluconazole Continue po Vanc inc to 250 mg po qid Cont probiotics and Questran has possible EC/CV fistula on repeat CT abdomen and pelvis F/u labs and c/s Without surgery less likely to improve , she needs surgery with diverting colostomy with surgery ,urologic and gynecology She remains at risk of sec bacterial,worsening c diff colitis and mdr infections D/W Pt at length. USSIE RUSSELL MD Jul 06, 2017 09:41
--- NOTE | 2017-07-06 10:51 | PDOC ---
SURGICAL PROGRESS NOTE Subjective sitting on the edge of the bed writing checks to pay her bills no new c/o Vital Signs Vital Signs Date Time Temp Pulse Resp B/P (MAP) Pulse Ox O2 Delivery O2 Flow Rate FiO2 07/06/17 07:00 97.9 86 16 118/60 (79) 97 Room Air 97.9 I&O Intake and Output 07/06/17 07:00 Intake Total 900 ml Output Total 230 ml Balance 670 ml Intake Oral 900 ml Output Urine Total 200 ml Drainage Total 30 ml # Voids 6 PATIENT HAS A CALL: No General: Alert, Oriented X3, No acute distress Abdomen: Soft Problem List Problems Medical Problems: (1) Diverticulitis large intestine Status: Acute (2) Diverticulitis of both large and small intestine with abscess without bleeding Status: Acute Assessment/Plan again talked about possible surgery if she's considering going ahead will ask GI for scope pre op to assess inflammatory versus neoplastic process d/w social worker assistant Problems: SOPHIE FRYE MD Jul 06, 2017 10:50
[2017-07-06] MEDS: hydroCHLOROthiazide 12.5 MG CAPSULE PO SCH (10:52)
[2017-07-06] MEDS: METOPROLOL SUCC 24HR ER 50 MG TAB.ER.24H. PO SCH (10:53)
[2017-07-06] MEDS: MULTIVITAMIN with MINERAL TABLET. PO SCH (10:53)
[2017-07-06] MEDS: FERROUS SULFATE 325 MG TABLET. PO SCH (10:53)
[2017-07-06] MEDS: LACTOBACILLUS RHAMNOSUS GG 1 CAPSULE. PO SCH ×2 (10:53→17:41)
[2017-07-06] MEDS: CHOLESTYRAMINE/ASPARTAME 4 GM PACKET PO SCH (10:53)
[2017-07-06] MEDS: ASCORBIC ACID 500 MG TABLET PO SCH (10:54)
[2017-07-06] MEDS: FLUCONAZOLE 100 MG TABLET. PO SCH (10:54)
[2017-07-06] MEDS: POTASSIUM CHLORIDE 10 MEQ TABLET.ER. PO SCH (10:55)
[2017-07-06 11:00] VITALS: BP 119/67
[2017-07-06 15:00] VITALS: BP 143/67
[2017-07-06] MEDS: VANCOMYCIN 250 MG/5 ML ORAL SOLUTION. PO SCH ×2 (17:40→18:14)
--- NOTE | 2017-07-06 17:43 | DS ---
DATE OF DISCHARGE: 07/06/2017 ADMISSION DIAGNOSIS: Diverticulitis with microperforation and abscess. DISCHARGE DIAGNOSES: Localized peritonitis, sepsis and perforated diverticulum. ASSOCIATED DIAGNOSES: Clostridium difficile colitis, mitral valve prolapse, chronic anxiety, moderate protein malnutrition, hypokalemia from diarrhea, urinary tract infection. CONSULTS: Dr. Oden, Surgery; Dr. Kraft, Infectious Disease; Dr. Amaya, TECHNICIAN PLANT AND MAINTENANCE; Dr. Griffith, Interventional Radiology. PRINCIPAL PROCEDURE: Placement of pigtail drain x 2. HISTORY AND HOSPITAL COURSE: This is a 76-year-old white female presented to the Emergency Room, found to have a perforated diverticulum with abscess. She was seen by Dr. Oden who recommended surgery, colostomy with drainage of abscess for likelihood of the colostomy. The patient declined surgery. She was seen by myself and Infectious Diseases and Interventional Radiology and a drain was placed to try to drain the abscess. She grew E. coli and Bacteroides fragilis from her abscess. She was also found to have a separate urinary tract infection, which grew Klebsiella pneumoniae. There was concern about a rectosigmoid fistula and a bladder fistula, but the culture from her urine was different from the abscess culture. She developed C. diff diarrhea and colitis, undergoing antibiotics. She was started on oral vancomycin and Lactobacillus and Questran. She developed protein malnutrition, was started on procalamine. She is now eating, but still having several loose stools a day. She is tolerating her catheters, which are connected to DAWN drains and that continued to drain some fluid. Her serial scans have shown some improvement of the abscess, but there is still a lot of inflammation around her uterus and right ovary, was still concerned for fistulas trying to form. She is continually declined to have surgery. She is being transferred to shelter for ongoing IV antibiotics with a plan to reimage her in a couple of weeks. Her procalamine will be stopped, but otherwise she will be continued on her current inpatient meds including acetaminophen 500 mg at bedtime, amitriptyline 10 mg at bedtime, vitamin C 500 mg daily, cholestyramine 4 gram b.i.d., iron sulfate 325 mg daily with breakfast, Diflucan 200 mg p.o. daily. Her hydrochlorothiazide will be stopped. Continue Lactobacillus 1 capsule t.i.d. Continue metoprolol succinate 50 mg extended release daily, multivitamin daily, perphenazine 2 mg tablet at bedtime, piperacillin and tazobactam 3.375 grams IV every 6 hours, potassium chloride 10 mEq daily with breakfast, tramadol 50 mg b.i.d. p.r.n. pain, vancomycin 250 mg p.o. q.i.d. She will be transferred to [facility] for shelter. I will follow her there. She will follow up with Surgery and ID in a couple of weeks. W Myron CUELLAR MD DR: FRANDY/lacie JOB#: [id number] / [id number]
== END 2017-07-06 18:25 | DRG 871 ==
LOC: ER 12:50 → ED HOLD 14:51 → 4 NORTH 17:49
PROVIDERS: ADMIT Family Medicine; ATTEND Family Medicine
PROC: 0W9J3ZZ Drainage of Pelvic Cavity, Percutaneous Approach (ICD-10-PCS; principal; 2017-06-20)
PROC: 0J9C30Z Drainage of Pelvic Region Subcutaneous Tissue and Fascia with Drainage Device, Percutaneous Approach (ICD-10-PCS; 2017-06-23)
DX: A41.9 Sepsis, unspecified organism (principal); N17.2 Acute kidney failure with medullary necrosis; A04.72 Enterocolitis due to Clostridium difficile, not specified as recurrent; E44.0 Moderate protein-calorie malnutrition; K57.40 Diverticulitis of both small and large intestine with perforation and abscess without bleeding; I47.1 Supraventricular tachycardia; N39.0 Urinary tract infection, site not specified; D63.8 Anemia in other chronic diseases classified elsewhere; I34.1 Nonrheumatic mitral (valve) prolapse; Z68.22 Body mass index [BMI] 22.0-22.9, adult; E87.6 Hypokalemia; F41.9 Anxiety disorder, unspecified; I10 Essential (primary) hypertension; Z16.11 Resistance to penicillins; Z53.20 Procedure and treatment not carried out because of patient's decision for unspecified reasons; Z87.440 Personal history of urinary (tract) infections; B96.1 Klebsiella pneumoniae [K. pneumoniae] as the cause of diseases classified elsewhere; D47.3 Essential (hemorrhagic) thrombocythemia; B96.6 Bacteroides fragilis [B. fragilis] as the cause of diseases classified elsewhere
CPT/HCPCS: 36415; 36569; 49406; 74176; 74177; 80048; 80053; 81001; 82274; 82607; 82728; 82746; 83540; 83550; 83605; 83690; 85007; 85025; 85027; 85045; 85610; 87040; 87071; 87075; 87086; 87186; 87205; 87324; 96361; 96374; 96375; 99152; 99153; C1729; C1769; C1894; J2250; J2270; J2405; J2543; J3010; J3490; J7030; Q0175; Q9967; 99285-25

== ENCOUNTER → 2017-07-26 | Outpatient (CLI) | payer MEDICARE, BC ==
[2017-07-06 15:00] VITALS: BP 143/67
[~2017-07-26] MED LIST changes: +PERP1TAB3 PO
--- NOTE | 2017-07-26 10:53 | RAD ---
Indication: Follow-up for pelvic abscess. Technique: CT abdomen and pelvis without IV contrast with multiplanar reformats. IV contrast was not given due to poor renal function. Comparison: Previous study from 07/15/2017 Findings: Limited study due to lack of IV contrast. Heart is normal in size. No pericardial or pleural effusion. Calcified granuloma seen in the right lung base. 4.3 x 3.1 cm low attenuating lesion in the left lateral sector of the liver, previously 3.9 x [address] from 02/29/2016.. Another 9 mm low attenuating lesion in segment 7, previously 1.0 cm. These are mostly cystic biliary hamartoma. Spleen is unenlarged. No radiopaque gallstones. The noncontrast appearance of the pancreas is within normal limits. Adrenal glands show no nodularity. No hydronephrosis. 2.6 cm simple appearing right renal cyst. No nephrolithiasis. No pathologically enlarged retroperitoneal or pelvic lymph nodes. No bowel obstruction. Sigmoid and descending colon diverticulosis noted. No pericolic inflammatory changes. Normal appendix. Diffuse large colonic stool burden. Redemonstrated are 2 posteriorly placed pigtail catheters with their tips in the rectouterine space. No fluid collections. Uterus is present. Bilateral ovaries are visualized. Bladder within normal limits. No free pelvic fluid. No inguinal adenopathy. Shotty retroperitoneal lymph nodes noted for example 10 mm lymph node in the presacral space (series 2 image 49). 6 cm lymph node in the left para-aortic region (series 2 image 38) Right pelvic sidewall lymph node measuring 7 mm. Diffuse scattered atherosclerotic disease of the abdominal aorta are noted. No suspicious bony lesions. Lower lumbar spine facet arthropathy noted. Multilevel mild degenerative disc disease noted. Impression: Limited study due to lack of IV contrast. 1. Stable position of 2 posterior approach pigtail catheters terminating in the rectouterine space. No residual loculated fluid collection. 2. Sigmoid and descending colon diverticulosis without diverticulitis. 3. Shotty retroperitoneal and pelvic lymph nodes most likely reactive. PQRS Compliance Statement: One or more of the following individualized dose reduction techniques were utilized for this examination: 1. Automated exposure control 2. Adjustment of the mA and/or kV according to patient size 3. Use of iterative reconstruction technique
== END | disposition home or self-care (01) ==
LOC: CT 08:33
PROVIDERS: ATTEND Surgery
DX: L02.818 Cutaneous abscess of other sites (principal); K57.30 Diverticulosis of large intestine without perforation or abscess without bleeding; Z46.82 Encounter for fitting and adjustment of non-vascular catheter
CPT/HCPCS: 74176

== ENCOUNTER → 2017-07-28 | Outpatient (CLI) | payer MEDICARE, BC ==
[2017-07-28 05:32] LABS: ADD MAN DIFF? NO
[2017-07-28 05:52] LABS: BASO # 0.1 x10^3/uL (0.0-0.2); BASO % 1 % (0-3); EOS % 6 % (0-3); HEMATOCRIT 29.3 % (36.0-47.0); HEMOGLOBIN 9.8 g/dL (12.0-15.5); LYMPH # 2.7 x10^3/uL (1.0-4.8); LYMPH % 28 % (24-48); MEAN CORPUSCULAR HEMOGLOBIN 30 pg (25-35); MEAN CORPUSCULAR HGB CONC 33 g/dL (31-37); MEAN CORPUSCULAR VOLUME 90 fL (79-100); MONO % 8 % (0-9); NEUT % 57 % (31-73); PLATELET COUNT 398 x10^3/uL (140-400); RED BLOOD COUNT 3.26 x10^6/uL (3.50-5.40); RED CELL DISTRIBUTION WIDTH 14.3 % (11.5-14.5); WHITE BLOOD COUNT 9.8 x10^3/uL (4.0-11.0)
[2017-07-28 06:13] LABS: ALBUMIN 2.4 g/dL (3.4-5.0); ALBUMIN/GLOBULIN RATIO 0.4 (1.0-1.7); ALK PHOS 65 U/L (46-116); ALT (SGPT) 26 U/L (14-59); ANION GAP 10 (6-14); AST (SGOT) 22 U/L (15-37); BLOOD UREA NITROGEN 26 mg/dL (7-20); BUN/CREATININE RATIO 19 (6-20); CALCIUM 9.3 mg/dL (8.5-10.1); CARBON DIOXIDE 26 mmol/L (21-32); CHLORIDE 105 mmol/L (98-107); CREATININE 1.4 mg/dL (0.6-1.0); GFR 36.4; GLUCOSE 99 mg/dL (70-99); POTASSIUM 4.1 mmol/L (3.5-5.1); SODIUM 141 mmol/L (136-145); TOTAL BILIRUBIN 0.2 mg/dL (0.2-1.0); TOTAL PROTEIN 7.8 g/dL (6.4-8.2)
== END | disposition home or self-care (01) ==
LOC: SPEC 05:29
DX: K57.40 Diverticulitis of both small and large intestine with perforation and abscess without bleeding (principal); D64.9 Anemia, unspecified
CPT/HCPCS: 36415; 80053; 85025

== ENCOUNTER → 2017-08-15 | Outpatient (CLI) | payer MEDICARE, BC ==
[2017-08-15 06:03] LABS: ADD MAN DIFF? NO
[2017-08-15 06:32] LABS: BASO # 0.1 x10^3/uL (0.0-0.2); BASO % 0 % (0-3); EOS # 0.3 x10^3/uL (0.0-0.7); EOS % 3 % (0-3); HEMATOCRIT 32.7 % (36.0-47.0); HEMOGLOBIN 10.6 g/dL (12.0-15.5); LYMPH # 3.4 x10^3/uL (1.0-4.8); LYMPH % 26 % (24-48); MEAN CORPUSCULAR HEMOGLOBIN 29 pg (25-35); MEAN CORPUSCULAR HGB CONC 32 g/dL (31-37); MEAN CORPUSCULAR VOLUME 89 fL (79-100); MONO # 1.1 x10^3/uL (0.0-1.1); MONO % 8 % (0-9); NEUT # 8.1 x10^3uL (1.8-7.7); NEUT % 63 % (31-73); PLATELET COUNT 458 x10^3/uL (140-400); RED BLOOD COUNT 3.66 x10^6/uL (3.50-5.40); RED CELL DISTRIBUTION WIDTH 14.2 % (11.5-14.5)
[2017-08-15 06:42] LABS: ALBUMIN 2.5 g/dL (3.4-5.0); ALBUMIN/GLOBULIN RATIO 0.4 (1.0-1.7); ALK PHOS 64 U/L (46-116); ALT (SGPT) 30 U/L (14-59); ANION GAP 10 (6-14); AST (SGOT) 25 U/L (15-37); BLOOD UREA NITROGEN 24 mg/dL (7-20); BUN/CREATININE RATIO 18 (6-20); CALCIUM 9.4 mg/dL (8.5-10.1); CARBON DIOXIDE 25 mmol/L (21-32); CHLORIDE 102 mmol/L (98-107); CREATININE 1.3 mg/dL (0.6-1.0); GFR 39.6; GLUCOSE 99 mg/dL (70-99); POTASSIUM 4.5 mmol/L (3.5-5.1); SODIUM 137 mmol/L (136-145); TOTAL BILIRUBIN 0.2 mg/dL (0.2-1.0); TOTAL PROTEIN 8.1 g/dL (6.4-8.2)
== END | disposition home or self-care (01) ==
LOC: SPEC 05:59
DX: K57.40 Diverticulitis of both small and large intestine with perforation and abscess without bleeding (principal)
CPT/HCPCS: 36415; 80053; 85025; 87040

== ENCOUNTER → 2017-11-08 | Outpatient (CLI) | payer MEDICARE, BC | END | disposition home or self-care (01) | LOC: MAMMO 12:46 | DX: Z12.31 Encounter for screening mammogram for malignant neoplasm of breast (principal) | CPT/HCPCS: 77063; 77067 ==

== ENCOUNTER → 2017-11-23 | Outpatient (CLI) | payer MEDICARE, BC ==
[2017-11-23 14:35] LABS: ADD MAN DIFF? NO; BASO % 0 % (0-3); EOS # 0.2 x10^3/uL (0.0-0.7); EOS % 3 % (0-3); HEMOGLOBIN 11.3 g/dL (12.0-15.5); LYMPH # 2.6 x10^3/uL (1.0-4.8); LYMPH % 33 % (24-48); MEAN CORPUSCULAR HEMOGLOBIN 29 pg (25-35); MEAN CORPUSCULAR HGB CONC 33 g/dL (31-37); MEAN CORPUSCULAR VOLUME 87 fL (79-100); MONO # 0.5 x10^3/uL (0.0-1.1); MONO % 7 % (0-9); NEUT # 4.5 x10^3uL (1.8-7.7); NEUT % 57 % (31-73); PLATELET COUNT 293 x10^3/uL (140-400); RED BLOOD COUNT 3.93 x10^6/uL (3.50-5.40); WHITE BLOOD COUNT 7.8 x10^3/uL (4.0-11.0)
[2017-11-23 15:02] LABS: ALBUMIN 3.2 g/dL (3.4-5.0); ANION GAP 9 (6-14); BLOOD UREA NITROGEN 24 mg/dL (7-20); CALCIUM 9.2 mg/dL (8.5-10.1); CARBON DIOXIDE 28 mmol/L (21-32); CHLORIDE 103 mmol/L (98-107); CREATININE 1.4 mg/dL (0.6-1.0); GFR 36.3; GLUCOSE 107 mg/dL (70-99); POTASSIUM 4.7 mmol/L (3.5-5.1); SODIUM 140 mmol/L (136-145)
== END | disposition home or self-care (01) ==
LOC: SURGPAT 13:20
DX: K57.80 Diverticulitis of intestine, part unspecified, with perforation and abscess without bleeding (principal)
CPT/HCPCS: 36415; 80048; 82040; 85025

== ENCOUNTER 2018-01-17 12:25 | Outpatient (CLI) | payer MEDICARE, BC | END 2018-02-14 | disposition home or self-care (01) | LOC: PMGWOUND 12:25 | DX: I70.235 Atherosclerosis of native arteries of right leg with ulceration of other part of foot (principal); L97.512 Non-pressure chronic ulcer of other part of right foot with fat layer exposed; F41.9 Anxiety disorder, unspecified; M19.90 Unspecified osteoarthritis, unspecified site; G62.9 Polyneuropathy, unspecified; I12.9 Hypertensive chronic kidney disease with stage 1 through stage 4 chronic kidney disease, or unspecified chronic kidney disease; N18.9 Chronic kidney disease, unspecified; D63.1 Anemia in chronic kidney disease; K21.9 Gastro-esophageal reflux disease without esophagitis; F32.9 Major depressive disorder, single episode, unspecified; G89.29 Other chronic pain; Z90.710 Acquired absence of both cervix and uterus; Z87.891 Personal history of nicotine dependence | CPT/HCPCS: 99214 ==

== ENCOUNTER → 2018-02-28 | Outpatient (CLI) | payer MEDICARE, BC | END | disposition home or self-care (01) | LOC: PMGWOUND 12:50 | DX: I70.235 Atherosclerosis of native arteries of right leg with ulceration of other part of foot (principal); L97.512 Non-pressure chronic ulcer of other part of right foot with fat layer exposed; F41.9 Anxiety disorder, unspecified; F32.9 Major depressive disorder, single episode, unspecified; M19.90 Unspecified osteoarthritis, unspecified site; G62.9 Polyneuropathy, unspecified; I12.9 Hypertensive chronic kidney disease with stage 1 through stage 4 chronic kidney disease, or unspecified chronic kidney disease; N18.9 Chronic kidney disease, unspecified; D63.1 Anemia in chronic kidney disease; K21.9 Gastro-esophageal reflux disease without esophagitis; G89.29 Other chronic pain; J43.9 Emphysema, unspecified; I73.9 Peripheral vascular disease, unspecified; Z87.891 Personal history of nicotine dependence; Z86.73 Personal history of transient ischemic attack (TIA), and cerebral infarction without residual deficits; Z90.49 Acquired absence of other specified parts of digestive tract; Z90.710 Acquired absence of both cervix and uterus | CPT/HCPCS: 97597; 99212 ==

== ENCOUNTER → 2018-03-14 | Outpatient (CLI) | payer MEDICARE, BC | END | disposition home or self-care (01) | LOC: PMGWOUND 12:43 | DX: I70.235 Atherosclerosis of native arteries of right leg with ulceration of other part of foot (principal); L97.512 Non-pressure chronic ulcer of other part of right foot with fat layer exposed; I70.203 Unspecified atherosclerosis of native arteries of extremities, bilateral legs; F41.9 Anxiety disorder, unspecified; F32.9 Major depressive disorder, single episode, unspecified; M19.90 Unspecified osteoarthritis, unspecified site; G62.9 Polyneuropathy, unspecified; I12.9 Hypertensive chronic kidney disease with stage 1 through stage 4 chronic kidney disease, or unspecified chronic kidney disease; N18.9 Chronic kidney disease, unspecified; D63.1 Anemia in chronic kidney disease; K21.9 Gastro-esophageal reflux disease without esophagitis; G89.29 Other chronic pain; J43.9 Emphysema, unspecified; Z87.891 Personal history of nicotine dependence; Z86.73 Personal history of transient ischemic attack (TIA), and cerebral infarction without residual deficits; Z90.49 Acquired absence of other specified parts of digestive tract; Z90.710 Acquired absence of both cervix and uterus | CPT/HCPCS: 99213 ==

== ENCOUNTER → 2019-01-16 | Outpatient (CLI) | payer MEDICARE, BC ==
[2018-01-05 09:17] VITALS: BP 112/50
[~2019-01-16] MED LIST changes: +ACET500T33 PO; +ASCO500T3 PO; +BARIUM SULFATE 105% 1,900 ML SUSP PO ONE; +CALC600T23 PO; +CEFT1VIA6 IJ; +CHOL4POW PO; +CHOL4POW2 PO; +CONTRAST GIVEN. MC PRN; +DIPH25CA58 PO; +FERR325T14 PO; +IOHEXOL 300 MG/ML 100ML VIAL. PR ONE; +LACT1CAP6 PO; +METR-34 PO; -METR500T8 PO; +MULT1TAB52 PO; +NIFE30TA2 PO; +ONDA4TAB7 PO; +OXYC1TAB15 PO; +PANT20TA2 PO; +POTA10TA12 PO; +SUCR1TAB35 PO; +VANC125C10 PO
--- NOTE | 2019-01-16 16:16 | RAD ---
Barium enema, 01/16/2019: History: Diverticulitis, planned take down of ileostomy The preliminary abdominal image demonstrates a nonspecific gas pattern. An ostomy device overlies the right lower quadrant. There are scattered arterial calcifications. Nonionic contrast was introduced into the rectum via gravity infusion. The study was performed for evaluation of the rectosigmoid colon. We did not attempt to distend the right colon. 1.8 minutes of fluoroscopy time was utilized. 9 fluoroscopic spot images were recorded. Several scattered colonic diverticula are evident, including several in the sigmoid colon. There are scattered filling defects in the barium column compatible with fecal debris. No constricting colonic lesion is identified. No contrast extravasation or fistula is identified. IMPRESSION: 1. Scattered colonic diverticula. 2. No contrast leak or constricting clonic process is identified.
== END | disposition home or self-care (01) ==
LOC: RAD 12:59
PROVIDERS: ATTEND Surgery
DX: K57.30 Diverticulosis of large intestine without perforation or abscess without bleeding (principal)
CPT/HCPCS: 74270

== ENCOUNTER → 2019-02-07 | Outpatient (CLI) | payer MEDICARE, BC ==
[2018-01-05 09:17] VITALS: BP 112/50
[~2019-02-07] MED LIST changes: +AMLO2.5T5 PO; +ASCO-185 PO; -BARIUM SULFATE 105% 1,900 ML SUSP PO ONE; -CONTRAST GIVEN. MC PRN; -IOHEXOL 300 MG/ML 100ML VIAL. PR ONE; +LACT1TAB24 PO; +LISI2.5T PO; +METO50TA6 PO; +OMEP20TA8 PO
[2019-02-07 15:30] LABS: BASO % 1 % (0-3); EOS # 0.2 x10^3/uL (0.0-0.7); EOS % 3 % (0-3); HEMATOCRIT 33.3 % (36.0-47.0); HEMOGLOBIN 11.4 g/dL (12.0-15.5); LYMPH # 2.5 x10^3/uL (1.0-4.8); LYMPH % 30 % (24-48); MEAN CORPUSCULAR HEMOGLOBIN 33 pg (25-35); MEAN CORPUSCULAR HGB CONC 34 g/dL (31-37); MEAN CORPUSCULAR VOLUME 96 fL (79-100); MONO # 0.6 x10^3/uL (0.0-1.1); MONO % 7 % (0-9); NEUT # 5.1 x10^3uL (1.8-7.7); NEUT % 60 % (31-73); PLATELET COUNT 258 x10^3/uL (140-400); RED BLOOD COUNT 3.46 x10^6/uL (3.50-5.40); RED CELL DISTRIBUTION WIDTH 12.9 % (11.5-14.5); WHITE BLOOD COUNT 8.4 x10^3/uL (4.0-11.0)
[2019-02-07 15:53] LABS: ALBUMIN 3.7 g/dL (3.4-5.0); CALCIUM 9.1 mg/dL (8.5-10.1); CREATININE 1.8 mg/dL (0.6-1.0); GFR 27.1; POTASSIUM 4.5 mmol/L (3.5-5.1)
== END | disposition home or self-care (01) ==
LOC: SURGPAT 13:00
PROVIDERS: ATTEND Surgery
DX: K57.80 Diverticulitis of intestine, part unspecified, with perforation and abscess without bleeding (principal)
CPT/HCPCS: 36415; 80048; 82040; 85025

== ENCOUNTER → 2020-04-23 | Outpatient (CLI) | payer MEDICARE, BC ==
[2019-09-14 14:30] VITALS: BP 151/67
[~2020-04-23] MED LIST changes: +MULT-445 PO; -MULT1TAB52 PO
--- NOTE | 2020-04-23 17:40 | RAD ---
EXAM: CHEST 2 VIEWS. HISTORY: Pulmonary nodules. COMPARISON: 12/31/2017. FINDINGS: Frontal and lateral views of the chest are obtained. There are no confluent infiltrates. Hyperinflation is consistent with chronic obstructive pulmonary disease. There are calcified granulomas in the both bases. There is no pneumothorax or pleural effusion. The heart is not enlarged. There are atherosclerotic calcifications of the aorta. IMPRESSION: 1. Bilateral pulmonary nodules appear to be stable calcified granulomas. CT is more sensitive for nodules if there is persistent concern. 2. Chronic obstructive pulmonary disease. No confluent infiltrates. Electronically signed by: Justin Chappell MD (04/23/2020 5:38 PM) [facility]
== END | disposition home or self-care (01) ==
LOC: RAD 14:05
PROVIDERS: ATTEND Family Medicine
DX: J44.9 Chronic obstructive pulmonary disease, unspecified (principal); J98.4 Other disorders of lung; J84.10 Pulmonary fibrosis, unspecified; R91.8 Other nonspecific abnormal finding of lung field; I25.10 Atherosclerotic heart disease of native coronary artery without angina pectoris
CPT/HCPCS: 71046

== ENCOUNTER 2021-10-03 15:01 | Inpatient (IN) | payer MEDICARE, BC ==
[~2021-10-03] VITALS: Ht 165.1 cm; Wt 76.7 kg
[~2021-10-03 15:01] MED LIST changes: -CIPR500T PO; +CIPR500T2 PO; -LISI2.5T PO; +LISI2.5T12 PO
[2021-10-03] MEDS ORDERED: IV NORMAL SALINE 1000ML BAG 1,000 ML IV ONE (15:45)
[2021-10-03] MEDS ORDERED: FAMOTIDINE 20 MG/2 ML VIAL IVP ONE (15:45)
[2021-10-03] MEDS ORDERED: ONDANSETRON PF 4 MG/2 ML VIAL. IVP ONE (15:45)
[2021-10-03 15:47] LABS: BILIRUBIN,URINE NEGATIVE (NEG); CLARITY,URINE CLEAR; COLOR,URINE YELLOW; NITRITE,URINE NEGATIVE (NEG); PROTEIN,URINE NEGATIVE (NEG-TRACE)
--- NOTE | 2021-10-03 15:48 | PHYS DOC ---
Past Medical History Past Medical History: Anemia, Anxiety, Diverticulitis, Hypertension, Renal Failure, UTI, Other Additional Past Medical Histor: mitral valve prolapse, TACHYCARDIA, C-DIFF, SIRS Past Surgical History: Other Additional Past Surgical Histo: BILAT EYE CYST, CATARACTS,Colostomy moved from L)side to R)side 11/30/2017. Smoking Status: Former Smoker Alcohol Use: None Drug Use: None General Adult EDM: Chief Complaint: ABDOMINAL PAIN HPI: HPI: Patient is a 81 year old female who presents with 2 days of right upper quadrant sharp/dull aching pain with nausea and vomiting. She rates her pain an 8 out of 10. She denies shortness of breath, chest pain, diarrhea, fever, cough, headache, dizziness, syncope, fall, urinary symptoms, blood in her stool or vomit. Patient states that her primary care took her off of her aspirin recently because she is getting nosebleeds. She has a history of diverticulitis with a right side and left-sided colostomy and a resection, C. difficile, bilateral cataracts, anemia, anxiety, UTI, tachycardia, mitral valve prolapse, renal failure, hypertension, former smoker. Review of Systems: Review of Systems: Constitutional: Denies fever or chills. [] Eyes: Denies change in visual acuity. [] HENT: Denies nasal congestion or sore throat. [] Respiratory: Denies cough or shortness of breath. [] Cardiovascular: Denies chest pain or edema. [] GI: + abdominal pain, +nausea, +vomiting, denies bloody stools or diarrhea. [] : Denies dysuria. [] Musculoskeletal: Denies back pain or joint pain. [] Integument: Denies rash. [] Neurologic: Denies headache, focal weakness or sensory changes. [] Endocrine: Denies polyuria or polydipsia. [] Lymphatic: Denies swollen glands. [] Psychiatric: Denies depression or anxiety. [] Heart Score: C/O Chest Pain: No HEART Score for Chest Pain: HEART Score for Chest Pain Response (Comments) Value History Slighlty/Non-Suspicious 0 ECG Nonspecific Repolarizatio 1 Age > 65 2 Risk Factors 1 or 2 Risk Factors 1 Troponin < Normal Limit 0 Total 4 Risk Factors: Risk Factors: DM, Current or recent (<one month) smoker, HTN, HLP, family history of CAD, obesity. Risk Scores: Score 0 - 3: 2.5% MACE over next 6 weeks - Discharge Home Score 4 - 6: 20.3% MACE over next 6 weeks - Admit for Clinical Observation Score 7 - 10: 72.7% MACE over next 6 weeks - Early Invasive Strategies Allergies: Allergies: Allergies Coded Allergies Type Severity Reaction Last Updated Verified adhesive Allergy Intermediate Rash 09/14/19 Yes Physical Exam: PE: Constitutional: Well developed, well nourished, no acute distress, non-toxic appearance. [] HENT: Normocephalic, atraumatic, bilateral external ears normal, oropharynx moist, no oral exudates, nose normal. [] Eyes: PERRLA, EOMI, conjunctiva normal, no discharge. [] Neck: Normal range of motion, no tenderness, supple, no stridor. [] Cardiovascular:Heart rate regular rhythm, no murmur [] Lungs & Thorax: Bilateral breath sounds clear to auscultation [] Abdomen: Bowel sounds normal, soft, right and left upper quadrant tenderness, no masses, no pulsatile masses. [] Skin: Warm, dry, no erythema, no rash. [] Back: No tenderness, no CVA tenderness. [] Extremities: No tenderness, no cyanosis, no clubbing, ROM intact, no edema. [] Neurologic: Alert and oriented X 3, normal motor function, normal sensory function, no focal deficits noted. [] Psychologic: Affect normal, judgement normal, mood normal. [] EKG: EK and read by Dr. Prado as a sinus rhythm and no STEMI Radiology/Procedures: Radiology/Procedures: [] Impression: [facility] [address] [place] [address] IMAGING REPORT Signed PATIENT: OLI MARISCAL AACCOUNT: [id number] : 1940 LOCATION: ER AGE: 81 SEX: F EXAM STATUS: PRE ER ORD. PHYSICIAN: TAI CASEY APRN REASON: upper abd pain PROCEDURE: PORTABLE CHEST 1V AP chest. HISTORY: Upper abdominal pain AP view was taken of the chest. Heart is normal in size. There is no pleural effusion. There are no confluent infiltrates. IMPRESSION: 1. No acute infiltrates. Electronically signed by: Sim Gilman MD (10/03/2021 3:56 PM) [id number] DICTATED and SIGNED BY: SIM GILMAN MD DATE: 10/03/21 [id number] [facility] [address] [place] [address] IMAGING REPORT Signed PATIENT: OLI MARISCAL AACCOUNT: [id number] : 1940 LOCATION: ER AGE: 81 SEX: F EXAM STATUS: REG ER ORD. PHYSICIAN: TAI CASEY APRN REASON: RUQ PAIN, N,V PROCEDURE: CT ABDOMEN PELVIS WO CONTRAST Exam: CT of abdomen and pelvis without contrast INDICATION: Right upper quadrant pain TECHNIQUE: Sequential axial images through the abdomen and pelvis obtained without IV contrast. Sagittal and coronal reformatted images were reconstructed from the axial data and reviewed. Exposure: One or more of the following in the visualized dose reduction techniques were utilized for this examination: 1. Automated exposure control 2. Adjustment of the MA and/or KV according to patient size 3. Use of iterative of reconstructive technique Comparisons: 12/28/2017 FINDINGS: Heart size is normal. No pericardial effusion. Small to moderate right pleural effusion with adjacent atelectasis. Evaluation of solid organs is limited secondary to noncontrast technique. Cystic lesion at the left hepatic lobe measuring 3 cm in diameter favored represent simple cysts. Spleen, pancreas, gallbladder and adrenals are unremarkable. No perinephric inflammation or hydronephrosis. Exophytic cystic lesion at the mid right kidney favored represent simple cysts. No ureteral calculi are identified. Bladder is distended and appears thin-walled. Prostate is not enlarged. Moderate amount stool in colon. Small bowel is unremarkable. There is a small amount of free fluid noted probably at the upper abdomen which measures slightly higher than simple fluid attenuation. Abdominal aorta has normal course and caliber. No enlarged intra-abdominal lymph nodes are identified. No suspicious osseous lesions or acute fractures. IMPRESSION: 1. Small amount of high density ascites noted in the abdomen which is nonspecific however could relate to hemorrhagic products. A discrete source is not identified. Correlate with appropriate lab values and recommend short-term follow-up imaging to assess for stability. 2. Appendix is not identified. Electronically signed by: Cayla Maria MD (10/03/2021 5:46 PM) [facility] DICTATED and SIGNED BY: CAYLA MARIA MD DATE: 10/03/21 [id number] 0 Course & Med Decision Making: Course & Med Decision Making Pertinent Labs and Imaging studies reviewed. (See chart for details) See HPI. Alert and oriented x4. Ambulatory steady gait. Speaks in full clear sentences. Abdomen is generalized tenderness but more so tender in the right upper and left upper quadrants. Skin pink warm and dry. No peripheral edema. Patient denies falling and there is no bruising to the abdomen. CT abdomen pelvis is showing fluid or hemorrhagic type fluid from the upper quadrants. Patient blood work is generally on remarkable. Her anemia is chronic and is no less than where it has been. Also her kidney function is right around where it has been sitting for years. Patient will be admitted to the hospital for further work-up as she is very tender. I spoke with Dr. Coy for admission. Spoke with Dr. De Los Santos who states to start antibiotics and protein pump inhibitor. [] Dragon Disclaimer: Dragon Disclaimer: This electronic medical record was generated, in whole or in part, using a voice recognition dictation system. COVID-19 Patient Risks: Age 65 or older: Yes Sign of co-morbidity: Yes Exp to person + for COVID: No Exp to PUI: No Travel from affected area: No Lower respiratory symptoms: No Fever: No Other: Yes (N,V) PPE Use: Full PPE with N95 mask or PAPR: Yes Departure Departure Impression: Primary Impression: Abdominal fluid collection Additional Impression: Abdominal pain Qualified Codes: R10.10 - Upper abdominal pain, unspecified Disposition: ADMITTED INPATIENT Admitting Physician: BC Condition: STABLE Referrals: Zandra CUELLAR MD (PCP) TAI CASEY APRN Oct 03, 2021 15:48
[2021-10-03 15:49] LABS: BASO # 0.1 x10^3/uL (0.0-0.2); BASO % 1 % (0-3); EOS % 0 % (0-3); HEMATOCRIT 31.6 % (36.0-47.0); HEMOGLOBIN 10.2 g/dL (12.0-15.5); LYMPH # 1.3 x10^3/uL (1.0-4.8); LYMPH % 11 % (24-48); MEAN CORPUSCULAR HEMOGLOBIN 32 pg (25-35); MEAN CORPUSCULAR HGB CONC 33 g/dL (31-37); MEAN CORPUSCULAR VOLUME 99 fL (79-100); MONO # 0.5 x10^3/uL (0.0-1.1); MONO % 4 % (0-9); NEUT # 9.7 x10^3/uL (1.8-7.7); NEUT % 83 % (31-73); PLATELET COUNT 586 x10^3/uL (140-400); RED CELL DISTRIBUTION WIDTH 14.4 % (11.5-14.5); WHITE BLOOD COUNT 11.7 x10^3/uL (4.0-11.0)
[2021-10-03 15:49] LABS: BACTERIA,URINE 0 /HPF (0-FEW)
--- NOTE | 2021-10-03 15:58 | RAD ---
AP chest. HISTORY: Upper abdominal pain AP view was taken of the chest. Heart is normal in size. There is no pleural effusion. There are no c onfluent infiltrates. IMPRESSION: 1. No acute infiltrates. Electronically signed by: Sim Gilman MD (10/03/2021 3:56 PM) [id number]
--- NOTE | 2021-10-03 16:03 | EKG ---
[facility] [address] [place] [address] Test Date: 2021-10-03 Test Time: 15:33:55 Pat Name: OLI MARISCAL Department: Room: Gender: F Physical Meteorologist: : 1940 Requested By: TAI CASEY Order Number: [id number] Reading MD: Theodore Rodriguez Measurements Intervals [place] Rate: 98 P: 61 NC: 144 QRS: 80 QRSD: 74 T: 73 QT: 314 QTc: 403 Interpretive Statements SINUS RHYTHM Electronically Signed On 10-04-2021 17:40:47 CASING WORKER by Theodore Rodriguez
[2021-10-03 16:15] LABS: PROTHROMBIN TIME PATIENT 13.7 SEC (11.7-14.0)
[2021-10-03 16:21] LABS: CALCIUM 9.1 mg/dL (8.5-10.1); CREATININE 1.6 mg/dL (0.6-1.0); GFR 30.8; POTASSIUM 4.6 mmol/L (3.5-5.1)
[2021-10-03 16:27] LABS: ALBUMIN 3.2 g/dL (3.4-5.0); ALBUMIN/GLOBULIN RATIO 0.7 (1.0-1.7); TOTAL BILIRUBIN 0.5 mg/dL (0.2-1.0); TOTAL PROTEIN 7.9 g/dL (6.4-8.2)
[2021-10-03 16:43] LABS: INFLUENZA A PATIENT NEGATIVE (NEGATIVE); INFLUENZA B PATIENT NEGATIVE (NEGATIVE)
--- NOTE | 2021-10-03 17:48 | RAD ---
Exam: CT of abdomen and pelvis without contrast INDICATION: Right upper quadrant pain TECHNIQUE: Sequential axial images through the abdomen and pelvis obtained without IV contrast. Sagit demetrio and coronal reformatted images were reconstructed from the axial data and reviewed. Exposure: One or more of the following in the visualized dose reduction techniques were utilized for this examination: 1. Automated exposure control 2. Adjustment of the MA and/or KV according to patient size 3. Use of iterative of reconstructive technique Comparisons: 12/28/2017 FINDINGS: Heart size is normal. No pericardial effusion. Small to moderate right pleural effusion with adjacent atelectasis. Evaluation of solid organs is limited secondary to noncontrast technique. Cystic lesion at the left hepatic lobe measuring 3 cm in diameter favored represent simple cysts. Spleen, pancreas, gallbladder and adrenals are unremarkable. No perinephric inflammation or hydronephrosis. Exophytic cystic lesion at the mid right kidney favore d represent simple cysts. No ureteral calculi are identified. Bladder is distended and appears thin-walled. Prostate is not enlarged. Moderate amount stool in colon. Small bowel is unremarkable. There is a small amount of free fluid no dora probably at the upper abdomen which measures slightly higher than simple fluid attenuation. Abdominal aorta has normal course and caliber. No enlarged intra-abdominal lymph nodes are identified. No suspicious osseous lesions or acute fractures. IMPRESSION: 1. Small amount of high density ascites noted in the abdomen which is nonspecific however could rela te to hemorrhagic products. A discrete source is not identified. Correlate with appropriate lab value s and recommend short-term follow-up imaging to assess for stability. 2. Appendix is not identified. Electronically signed by: Cayla Mohan MD (10/03/2021 5:46 PM) [facility]
[2021-10-03] MEDS ORDERED: PIPERACILLIN/TAZOBACTAM 3.375 GM in IV NORMAL SALINE 50ML 50 ML IV ONE (18:45)
[2021-10-03] MEDS ORDERED: PANTOPRAZOLE IV PUSH 40 MG VIAL. IVP ONE (19:00)
[2021-10-03] MEDS ORDERED: PIPERACILLIN/TAZOBACTAM 2.25 GM in IV NORMAL SALINE 50ML 50 ML IV ONE (19:00)
[2021-10-03 20:30] VITALS: BP 134/63
--- NOTE | 2021-10-03 20:55 | PDOC1 ---
History and Physical Date of Admission Date of Admission DATE: 10/03/21 TIME: 20:54 Source Source: Chart review, Patient History of Present Illness History of Present Illness Ms. Iglesias is a 81 year old female who presents with almost 4 days of upper abdominal pain. Pain is worse in right upp quadrant sharp/dull aching pain with nausea and vomiting. Pain 8/10, she did mention the pain may have started when she strained on the toilet to stool She has a jossue ghistory of diverticulitis with a right side and left-sided colostomy and a resection, Also prior C. difficile, Past Medical History Past Medical History bilateral cataracts, anemia, anxiety, mitral valve prolapse, hypertension, Cardiovascular: HTN, Other Pulmonary: No pertinent hx GI: Diverticulosis Heme/Onc: No pertinent hx Hepatobiliary: No pertinent hx Psych: No pertinent hx Rheumatologic: No pertinent hx Infectious disease: No pertinent hx Renal/: No pertinent hx Endocrine: No pertinent hx Past Surgical History Past Surgical History: Other Family History Family History: No Significant, Other Social History Smoke: Quit ALCOHOL: rare Drugs: None Current Problem List Problem List Problems Medical Problems: (1) Abdominal fluid collection Status: Acute (2) Abdominal pain Status: Acute Current Medications Current Medications Current Medications Famotidine (Pepcid Vial) 20 mg 1X ONCE IVP Last administered on 10/03/21at 15:52; Start 10/03/21 at 15:45; Stop 10/03/21 at 15:46; Status DC Ondansetron HCl (Zofran) 4 mg 1X ONCE IVP Last administered on 10/03/21at 15:52; Start 10/03/21 at 15:45; Stop 10/03/21 at 15:46; Status DC Sodium Chloride 1,000 ml @ 1,000 mls/hr 1X ONCE IV Last administered on 10/03/21at 15:52; Start 10/03/21 at 15:45; Stop 10/03/21 at 16:44; Status DC Pantoprazole Sodium (PROTONIX VIAL for IV PUSH) 40 mg 1X ONCE IVP ; Start 10/03/21 at 19:00; Stop 10/03/21 at 19:01; Status Cancel Piperacillin Sod/ Tazobactam Sod 3.375 gm/Sodium Chloride 50 ml @ 100 mls/hr 1X ONCE IV ; Start 10/03/21 at 18:45; Stop 10/03/21 at 19:14; Status UNV Piperacillin Sod/ Tazobactam Sod 2.25 gm/Sodium Chloride 50 ml @ 100 mls/hr 1X ONCE IV Last administered on 10/03/21at 19:12; Start 10/03/21 at 19:00; Stop 10/03/21 at 19:29; Status DC Pantoprazole Sodium (PROTONIX VIAL for IV PUSH) 40 mg DAILY IVP ; Start 10/04/21 at 09:00 Active Scripts Active Reported Amlodipine Besylate 2.5 Mg Tablet 2.5 Mg PO DAILY Lisinopril 2.5 Mg Tablet 2.5 Mg PO DAILY Aspirin 81 Mg Tab.chew 81 Mg PO DAILY Vit C-Quyen Hips 500 mg Chew Tb (Ascorbic Acid/Ascorbate Sodium) 500 Mg Tab.chew 500 Mg PO DAILY Probiotic Acidophilus (Lactobacillus Acidophilus) 1 Each Tablet 1 Each PO DAILY Metoprolol Tartrate 50 Mg Tablet 50 Mg PO BID Omeprazole 20 Mg Tablet.dr 20 Mg PO DAILY Multivitamins (Multivitamin) 1 Each Tablet 1 Tab PO DAILY Allergies Allergies: Coded Allergies: adhesive (Verified Allergy, Intermediate, Rash, 10/03/21) ROS General: No: Chills, Night Sweats, Fatigue, Malaise, Appetite, Other PSYCHOLOGICAL ROS: YES: Anxiety (about coming to hospital); No: Behavioral Disorder, Concentration difficultie, Decreased libido, Depression, Disorientation, Hallucinations, Hostility, Irritablity, Memory difficulties, Mood Swings, Obsessive thoughts, Other Eyes: No Blurry vision, No Decreased vision, No Double vision, No Dry eyes, No Excessive tearing, No Eye Pain, No Itchy Eyes, No Loss of vision, No Photophobia, No Scotomata, No Uses contacts, No Uses glasses, No Other HEENT: No: Heacaches, Visual Changes, Hearing change, Nasal congestion, Nasal discharge, Oral lesions, Sinus pain, Sore Throat, Epistaxis, Sneezing, Snoring, Tinnitus, Vertigo, Vocal changes, Other Respiratory: No: Cough, Hemoptysis, Orthopnea, Pleuritic Pain, Shortness of breath, SOB with excertion, Sputum Changes, Stridor, Tachypnea, Wheezing, Other Cardiovascular: No Chest Pain, No Palpitations, No Orthopnea, No Paroxysmal Noc. Dyspnea, No Edema, No Lt Headedness, No Other Gastrointestinal: Yes Nausea, Yes Abdominal Pain Genitourinary: No Dysuria, No Frequency, No Incontinence, No Hematuria, No Retention, No Discharge, No Urgency, No Pain, No Flank Pain, No Other, No , No , No , No , No , No , No Musculoskeletal: No Gait Disturbance, No Joint Pain, No Joint Stiffness, No Joint Swelling, No Muscle Pain, No Muscular Weakness, No Pain In:, No Swelling In:, No Other Neurological: No Behavorial Changes, No Bowel/Bladder ControlChng, No Confusion, No Dizziness, No Gait Disturbance, No Headaches, No Impaired Coord/balance, No Memory Loss, No Numbness/Tingling, No Seizures, No Speech Problems, No Tremors, No Visual Changes, No Weakness, No Other Skin: Yes Dry Skin; No Eczema, No Hair Changes, No Lumps, No Mole Changes, No Mottling, No Nail Changes, No Pruritus, No Rash, No Skin Lesion Changes, No Other, No Acne Physical Exam General: Alert, Cooperative, mild distress HEENT: Atraumatic, Mucous membr. moist/pink Lungs: Clear to auscultation, Normal air movement Heart: S1S2, no gallops Abdomen: Other (tender to palpation bilat upper. minimal guarding, no rebound, lower freq sounds) Extremities: No clubbing, No edema, Normal pulses Skin: No rashes Neuro: Normal speech, Sensation intact Psych/Mental Status: Mental status NL, Mood NL Vitals Vitals Vital Signs Date Time Temp Pulse Resp B/P (MAP) Pulse Ox O2 Delivery O2 Flow Rate FiO2 10/03/21 19:59 90 13 128/58 (81) 98 Room Air 10/03/21 15:27 98.4 98.4 Labs Labs Laboratory Tests Test 10/03/21 15:35 10/03/21 15:42 10/03/21 16:10 Urine Collection Type Unknown Urine Color Yellow Urine Clarity Clear Urine pH 6.0 (<5.0-8.0) Urine Specific [place] 1.020 (1.000-1.030) Urine Protein Negative mg/dL (NEG-TRACE) Urine Glucose (UA) Negative mg/dL (NEG) Urine Ketones (Stick) Negative mg/dL (NEG) Urine Blood Trace (NEG) Urine Nitrite Negative (NEG) Urine Bilirubin Negative (NEG) Urine Urobilinogen Dipstick 2.0 mg/dL (0.2 mg/dL) Urine Leukocyte Esterase Negative (NEG) Urine RBC 1-2 /HPF (0-2) Urine WBC 1-4 /HPF (0-4) Urine Squamous Epithelial Cells Few /LPF Urine Bacteria 0 /HPF (0-FEW) Urine Mucus Slight /LPF White Blood Count 11.7 x10^3/uL (4.0-11.0) Red Blood Count 3.20 x10^6/uL (3.50-5.40) Hemoglobin 10.2 g/dL (12.0-15.5) Hematocrit 31.6 % (36.0-47.0) Mean Corpuscular Volume 99 fL (79-100) Mean Corpuscular Hemoglobin 32 pg (25-35) Mean Corpuscular Hemoglobin Concent 33 g/dL (31-37) Red Cell Distribution Width 14.4 % (11.5-14.5) Platelet Count 586 x10^3/uL (140-400) Neutrophils (%) (Auto) 83 % (31-73) Lymphocytes (%) (Auto) 11 % (24-48) Monocytes (%) (Auto) 4 % (0-9) Eosinophils (%) (Auto) 0 % (0-3) Basophils (%) (Auto) 1 % (0-3) Neutrophils # (Auto) 9.7 x10^3/uL (1.8-7.7) Lymphocytes # (Auto) 1.3 x10^3/uL (1.0-4.8) Monocytes # (Auto) 0.5 x10^3/uL (0.0-1.1) Eosinophils # (Auto) 0.0 x10^3/uL (0.0-0.7) Basophils # (Auto) 0.1 x10^3/uL (0.0-0.2) Prothrombin Time 13.7 SEC (11.7-14.0) Prothromb Time International Ratio 1.1 (0.8-1.1) Activated Partial Thromboplast Time 23 SEC (24-38) Sodium Level 134 mmol/L (136-145) Potassium Level 4.6 mmol/L (3.5-5.1) Chloride Level 97 mmol/L (98-107) Carbon Dioxide Level 27 mmol/L (21-32) Anion Gap 10 (6-14) Blood Urea Nitrogen 21 mg/dL (7-20) Creatinine 1.6 mg/dL (0.6-1.0) Estimated GFR (Cockcroft-Gault) 30.8 BUN/Creatinine Ratio 13 (6-20) Glucose Level 122 mg/dL (70-99) Calcium Level 9.1 mg/dL (8.5-10.1) Magnesium Level 2.2 mg/dL (1.8-2.4) Total Bilirubin 0.5 mg/dL (0.2-1.0) Aspartate Amino Transf (AST/SGOT) 34 U/L (15-37) Alanine Aminotransferase (ALT/SGPT) 40 U/L (14-59) Alkaline Phosphatase 59 U/L (46-116) Troponin I High Sensitivity 8 ng/L (4-50) Total Protein 7.9 g/dL (6.4-8.2) Albumin 3.2 g/dL (3.4-5.0) Albumin/Globulin Ratio 0.7 (1.0-1.7) Lipase 194 U/L (73-393) Influenza Type A Antigen Negative (NEGATIVE) Influenza Type B Antigen Negative (NEGATIVE) SARS-CoV-2 Antigen (Rapid) Negative (NEGATIVE) Laboratory Tests Test 10/03/21 15:35 10/03/21 15:42 10/03/21 16:10 Urine Collection Type Unknown Urine Color Yellow Urine Clarity Clear Urine pH 6.0 (<5.0-8.0) Urine Specific [place] 1.020 (1.000-1.030) Urine Protein Negative mg/dL (NEG-TRACE) Urine Glucose (UA) Negative mg/dL (NEG) Urine Ketones (Stick) Negative mg/dL (NEG) Urine Blood Trace (NEG) Urine Nitrite Negative (NEG) Urine Bilirubin Negative (NEG) Urine Urobilinogen Dipstick 2.0 mg/dL (0.2 mg/dL) Urine Leukocyte Esterase Negative (NEG) Urine RBC 1-2 /HPF (0-2) Urine WBC 1-4 /HPF (0-4) Urine Squamous Epithelial Cells Few /LPF Urine Bacteria 0 /HPF (0-FEW) Urine Mucus Slight /LPF White Blood Count 11.7 x10^3/uL (4.0-11.0) Red Blood Count 3.20 x10^6/uL (3.50-5.40) Hemoglobin 10.2 g/dL (12.0-15.5) Hematocrit 31.6 % (36.0-47.0) Mean Corpuscular Volume 99 fL (79-100) Mean Corpuscular Hemoglobin 32 pg (25-35) Mean Corpuscular Hemoglobin Concent 33 g/dL (31-37) Red Cell Distribution Width 14.4 % (11.5-14.5) Platelet Count 586 x10^3/uL (140-400) Neutrophils (%) (Auto) 83 % (31-73) Lymphocytes (%) (Auto) 11 % (24-48) Monocytes (%) (Auto) 4 % (0-9) Eosinophils (%) (Auto) 0 % (0-3) Basophils (%) (Auto) 1 % (0-3) Neutrophils # (Auto) 9.7 x10^3/uL (1.8-7.7) Lymphocytes # (Auto) 1.3 x10^3/uL (1.0-4.8) Monocytes # (Auto) 0.5 x10^3/uL (0.0-1.1) Eosinophils # (Auto) 0.0 x10^3/uL (0.0-0.7) Basophils # (Auto) 0.1 x10^3/uL (0.0-0.2) Prothrombin Time 13.7 SEC (11.7-14.0) Prothromb Time International Ratio 1.1 (0.8-1.1) Activated Partial Thromboplast Time 23 SEC (24-38) Sodium Level 134 mmol/L (136-145) Potassium Level 4.6 mmol/L (3.5-5.1) Chloride Level 97 mmol/L (98-107) Carbon Dioxide Level 27 mmol/L (21-32) Anion Gap 10 (6-14) Blood Urea Nitrogen 21 mg/dL (7-20) Creatinine 1.6 mg/dL (0.6-1.0) Estimated GFR (Cockcroft-Gault) 30.8 BUN/Creatinine Ratio 13 (6-20) Glucose Level 122 mg/dL (70-99) Calcium Level 9.1 mg/dL (8.5-10.1) Magnesium Level 2.2 mg/dL (1.8-2.4) Total Bilirubin 0.5 mg/dL (0.2-1.0) Aspartate Amino Transf (AST/SGOT) 34 U/L (15-37) Alanine Aminotransferase (ALT/SGPT) 40 U/L (14-59) Alkaline Phosphatase 59 U/L (46-116) Troponin I High Sensitivity 8 ng/L (4-50) Total Protein 7.9 g/dL (6.4-8.2) Albumin 3.2 g/dL (3.4-5.0) Albumin/Globulin Ratio 0.7 (1.0-1.7) Lipase 194 U/L (73-393) Influenza Type A Antigen Negative (NEGATIVE) Influenza Type B Antigen Negative (NEGATIVE) SARS-CoV-2 Antigen (Rapid) Negative (NEGATIVE) VTE Prophylaxis Ordered VTE Prophylaxis Devices: Yes VTE Pharmacological Prophylaxi: No Assessment/Plan Assessment/Plan acute on chronic abdominal pain s/p ileostomy and take down, Dr. Oden and Dr. De Los Santos, she was last here in 2019 Entertisi, abx GERD, PPI given Justifications for Admission Other Justification DEEPTHI VALDEZ MD Oct 03, 2021 20:55
[2021-10-03] MEDS ORDERED: PIP/TAZO PER PHARMACY MC PRN (21:00)
[2021-10-03] MEDS: IV NORMAL SALINE 1000ML BAG 1,000 ML IV SCH (22:43)
[2021-10-03 23:10] VITALS: BP 138/62
[2021-10-04 04:10] VITALS: BP 153/66
[2021-10-04] MEDS: MORPHINE SULFATE 2 MG/ML INJ. IVP PRN ×3 (04:29→18:17)
[2021-10-04] MEDS ORDERED: FOLI0.8C PO (05:16)
[2021-10-04] MEDS ORDERED: METH2.5T PO (05:16)
[2021-10-04] MEDS ORDERED: ACET325T9 PO (05:16)
[2021-10-04] MEDS ORDERED: DOCU50CA9 PO (05:16)
[2021-10-04] MEDS ORDERED: CHOL10004 PO (05:16)
[2021-10-04] MEDS ORDERED: PERP1TAB3 PO (05:16)
[2021-10-04] MEDS: PIPERACILLIN/TAZOBACTAM 2.25 GM in IV NORMAL SALINE 50ML 50 ML IV SCH ×3 (06:17→17:33)
[2021-10-04 07:00] VITALS: BP 131/61
[2021-10-04 07:26] LABS: BASO % 0 % (0-3); EOS # 0.1 x10^3/uL (0.0-0.7); EOS % 1 % (0-3); HEMATOCRIT 27.3 % (36.0-47.0); HEMOGLOBIN 8.9 g/dL (12.0-15.5); LYMPH # 1.2 x10^3/uL (1.0-4.8); LYMPH % 10 % (24-48); MEAN CORPUSCULAR HEMOGLOBIN 32 pg (25-35); MEAN CORPUSCULAR HGB CONC 33 g/dL (31-37); MEAN CORPUSCULAR VOLUME 99 fL (79-100); MONO # 0.7 x10^3/uL (0.0-1.1); MONO % 6 % (0-9); NEUT # 9.1 x10^3/uL (1.8-7.7); NEUT % 82 % (31-73); PLATELET COUNT 504 x10^3/uL (140-400); RED BLOOD COUNT 2.78 x10^6/uL (3.50-5.40); RED CELL DISTRIBUTION WIDTH 14.1 % (11.5-14.5)
--- NOTE | 2021-10-04 07:43 | RAD ---
EXAMINATION: US ABDOMEN COMPLETE CLINICAL HISTORY: Right upper quadrant abdominal pain. TECHNIQUE: Grayscale sonographic imaging of the abdomen obtained with color Doppler imaging and spect ral Doppler analysis as indicated. COMPARISON: CT abdomen/pelvis 10/03/2021 FINDINGS: Pancreas: Normal sonographic appearance. - Portions obscured: Tail - Lesions: None Liver: - Echotexture: Coarse - Echogenicity: Heterogeneous - Surface contour: Smooth - Lesions: 2.8 cm anechoic cyst in the left hepatic lobe. Biliary: No intrahepatic biliary duct dilation. - CBD: Measures up to 10 mm on this exam but only measured [address] 13 hours earlier. - Gallbladder: Nondistended - Contents: 1.8 cm stone - Wall: Normal - Other: No pericholecystic fluid. Spleen: - Craniocaudal length: 10.0 cm. - Lesions: None Right Kidney: - Renal length: 10.0 cm - Parenchyma: Normal parenchymal echogenicity. Normal parenchymal thickness. - Collecting system: No hydronephrosis. - Calculus: No echogenic, shadowing calculus. - Lesion: 3.4 cm anechoic exophytic cyst in the lower pole. Left Kidney: - Renal length: 9.7 cm - Parenchyma: Normal parenchymal echogenicity. Normal parenchymal thickness. - Collecting system: No hydronephrosis. - Calculus: No echogenic, shadowing calculus. - Lesion: 2.1 cm cyst in the lower pole. IVC: Imaged segments patent. Abdominal Aorta: Imaged segments patent. Ascites: Small volume abdominal ascites. Other: Partially visualized right pleural effusion. IMPRESSION: Nondistended gallbladder with single large gallstone. Dilated common bile duct by this exam but this is discordant with comparison CT, question the accuracy of the sonographic measurements. Clinical cor relation is advised. Nonspecific changes in the hepatic parenchyma as described which could be seen with cirrhosis, hepati tis, or steatosis among other etiologies. Mild ascites and partially visualized right pleural effusion. Hepatic and bilateral renal cysts. Electronically signed by: Jai Mott DO (10/04/2021 7:41 AM) [facility]
[2021-10-04 07:49] LABS: ALBUMIN 2.3 g/dL (3.4-5.0); ALBUMIN/GLOBULIN RATIO 0.5 (1.0-1.7); CALCIUM 7.4 mg/dL (8.5-10.1); CREATININE 1.4 mg/dL (0.6-1.0); GFR 35.9; POTASSIUM 4.6 mmol/L (3.5-5.1); TOTAL BILIRUBIN 0.6 mg/dL (0.2-1.0); TOTAL PROTEIN 6.5 g/dL (6.4-8.2)
[2021-10-04] MEDS: IV NORMAL SALINE 1000ML BAG 1,000 ML IV SCH ×2 (08:04→18:17)
[2021-10-04] MEDS ORDERED: FAMOTIDINE 20 MG/2 ML VIAL IVP SCH (09:00)
[2021-10-04] MEDS ORDERED: PANTOPRAZOLE IV PUSH 40 MG VIAL. IVP SCH (09:00)
[2021-10-04 11:00] VITALS: BP 134/63
--- NOTE | 2021-10-04 11:50 | PDOC ---
[employer] PROGRESS NOTE Date of Service DOS: DATE: 10/04/21 TIME: 11:49 Chief Complaint Chief Complaint acute on chronic abdominal pain s/p ileostomy and take down, last seen herei n 2019 GI consult Enteritis, Zosyn GERD, PPI given continue History of Present Illness History of Present Illness 10/04 Patient eval and examined at bedside. Resting in bed saying abdominal pain was a little improved. No nausea vomiting diarrhea. Continue empiric abx. Gi consulted. Discussed wtih bedside RN. Vitals/I&O Vitals/I&O: Vital Signs Date Time Temp Pulse Resp B/P (MAP) Pulse Ox O2 Delivery O2 Flow Rate FiO2 10/04/21 11:00 98.0 66 18 134/63 (86) 91 98.0 10/04/21 08:00 Room Air I & O 10/03/21 10/03/21 10/04/21 15:00 23:00 07:00 Intake Total 1050 ml 0 ml Output Total 200 ml 400 ml Balance 850 ml -400 ml Physical Exam General: Alert, Oriented X3, Cooperative, mild distress Heart: Regular rate Lungs: Clear Abdomen: Other (tender to palpation bilat upper. minimal guarding, no rebound, lower freq sounds) Extremities: No clubbing, No edema, Normal pulses Skin: No rashes Labs Labs: Laboratory Tests Test 10/03/21 15:35 10/03/21 15:42 10/03/21 16:10 10/04/21 07:05 Urine Collection Type Unknown Urine Color Yellow Urine Clarity Clear Urine pH 6.0 (<5.0-8.0) Urine Specific [place] 1.020 (1.000-1.030) Urine Protein Negative mg/dL (NEG-TRACE) Urine Glucose (UA) Negative mg/dL (NEG) Urine Ketones (Stick) Negative mg/dL (NEG) Urine Blood Trace (NEG) Urine Nitrite Negative (NEG) Urine Bilirubin Negative (NEG) Urine Urobilinogen Dipstick 2.0 mg/dL (0.2 mg/dL) Urine Leukocyte Esterase Negative (NEG) Urine RBC 1-2 /HPF (0-2) Urine WBC 1-4 /HPF (0-4) Urine Squamous Epithelial Cells Few /LPF Urine Bacteria 0 /HPF (0-FEW) Urine Mucus Slight /LPF White Blood Count 11.7 x10^3/uL (4.0-11.0) 11.0 x10^3/uL (4.0-11.0) Red Blood Count 3.20 x10^6/uL (3.50-5.40) 2.78 x10^6/uL (3.50-5.40) Hemoglobin 10.2 g/dL (12.0-15.5) 8.9 g/dL (12.0-15.5) Hematocrit 31.6 % (36.0-47.0) 27.3 % (36.0-47.0) Mean Corpuscular Volume 99 fL (79-100) 99 fL (79-100) Mean Corpuscular Hemoglobin 32 pg (25-35) 32 pg (25-35) Mean Corpuscular Hemoglobin Concent 33 g/dL (31-37) 33 g/dL (31-37) Red Cell Distribution Width 14.4 % (11.5-14.5) 14.1 % (11.5-14.5) Platelet Count 586 x10^3/uL (140-400) 504 x10^3/uL (140-400) Neutrophils (%) (Auto) 83 % (31-73) 82 % (31-73) Lymphocytes (%) (Auto) 11 % (24-48) 10 % (24-48) Monocytes (%) (Auto) 4 % (0-9) 6 % (0-9) Eosinophils (%) (Auto) 0 % (0-3) 1 % (0-3) Basophils (%) (Auto) 1 % (0-3) 0 % (0-3) Neutrophils # (Auto) 9.7 x10^3/uL (1.8-7.7) 9.1 x10^3/uL (1.8-7.7) Lymphocytes # (Auto) 1.3 x10^3/uL (1.0-4.8) 1.2 x10^3/uL (1.0-4.8) Monocytes # (Auto) 0.5 x10^3/uL (0.0-1.1) 0.7 x10^3/uL (0.0-1.1) Eosinophils # (Auto) 0.0 x10^3/uL (0.0-0.7) 0.1 x10^3/uL (0.0-0.7) Basophils # (Auto) 0.1 x10^3/uL (0.0-0.2) 0.0 x10^3/uL (0.0-0.2) Prothrombin Time 13.7 SEC (11.7-14.0) Prothromb Time International Ratio 1.1 (0.8-1.1) Activated Partial Thromboplast Time 23 SEC (24-38) Sodium Level 134 mmol/L (136-145) 138 mmol/L (136-145) Potassium Level 4.6 mmol/L (3.5-5.1) 4.6 mmol/L (3.5-5.1) Chloride Level 97 mmol/L (98-107) 102 mmol/L (98-107) Carbon Dioxide Level 27 mmol/L (21-32) 21 mmol/L (21-32) Anion Gap 10 (6-14) 15 (6-14) Blood Urea Nitrogen 21 mg/dL (7-20) 15 mg/dL (7-20) Creatinine 1.6 mg/dL (0.6-1.0) 1.4 mg/dL (0.6-1.0) Estimated GFR (Cockcroft-Gault) 30.8 35.9 BUN/Creatinine Ratio 13 (6-20) 11 (6-20) Glucose Level 122 mg/dL (70-99) 89 mg/dL (70-99) Calcium Level 9.1 mg/dL (8.5-10.1) 7.4 mg/dL (8.5-10.1) Magnesium Level 2.2 mg/dL (1.8-2.4) Total Bilirubin 0.5 mg/dL (0.2-1.0) 0.6 mg/dL (0.2-1.0) Aspartate Amino Transf (AST/SGOT) 34 U/L (15-37) 17 U/L (15-37) Alanine Aminotransferase (ALT/SGPT) 40 U/L (14-59) 30 U/L (14-59) Alkaline Phosphatase 59 U/L (46-116) 41 U/L (46-116) Troponin I High Sensitivity 8 ng/L (4-50) Total Protein 7.9 g/dL (6.4-8.2) 6.5 g/dL (6.4-8.2) Albumin 3.2 g/dL (3.4-5.0) 2.3 g/dL (3.4-5.0) Albumin/Globulin Ratio 0.7 (1.0-1.7) 0.5 (1.0-1.7) Lipase 194 U/L (73-393) Influenza Type A Antigen Negative (NEGATIVE) Influenza Type B Antigen Negative (NEGATIVE) SARS-CoV-2 Antigen (Rapid) Negative (NEGATIVE) Assessment and Plan Assessmemt and Plan Problems Medical Problems: (1) Abdominal fluid collection Status: Acute (2) Abdominal pain Status: Acute Comment Review of Relevant I have reviewed the following items mariusz (where applicable) has been applied. Medications: Current Medications Medications (Trade) Dose Ordered Sig/Ella Route PRN Reason Start Time Stop Time Status Last Admin Dose Admin Famotidine (Pepcid Vial) 20 mg 1X ONCE IVP 10/03/21 15:45 10/03/21 15:46 DC 10/03/21 15:52 Ondansetron HCl (Zofran) 4 mg 1X ONCE IVP 10/03/21 15:45 10/03/21 15:46 DC 10/03/21 15:52 Sodium Chloride 1,000 ml @ 1,000 mls/hr 1X ONCE IV 10/03/21 15:45 10/03/21 16:44 DC 10/03/21 15:52 Piperacillin Sod/ Tazobactam Sod 2.25 gm/Sodium Chloride 50 ml @ 100 mls/hr 1X ONCE IV 10/03/21 19:00 10/03/21 19:29 DC 10/03/21 19:12 Pantoprazole Sodium (PROTONIX VIAL for IV PUSH) 40 mg DAILY IVP 10/04/21 09:00 10/04/21 08:03 Sodium Chloride 1,000 ml @ 100 mls/hr Q10H IV 10/03/21 21:00 10/04/21 08:04 Morphine Sulfate (Morphine Sulfate) 2 mg PRN Q2HR PRN IVP SEVERE PAIN 7-10 10/03/21 21:00 10/04/21 04:29 Piperacillin Sod/ Tazobactam Sod 2.25 gm/Sodium Chloride 50 ml @ 100 mls/hr Q6HRS IV 10/04/21 06:00 10/04/21 11:23 Justifications for Admission Other Justification YUKO FOFANA MD Oct 04, 2021 11:50
--- NOTE | 2021-10-04 12:26 | PDOC2 ---
GI CONSULT Date of Service: DATE: 10/04/21 TIME: 12:11 Reason For Consult: Abdominal pain HPI: HPI: 81 y/o female who has been struggling with abdominal pain for the best part of the month. Seems to have started when she strained at stool on 09/07. Not necessarily worse with eating. Aggravated by bending. No further issues with constipation or diarrhea. No overt bleeding. Over the past week has vomited bilious material x 3 seemingly w/o associated pain and feels OK after. Says has been able to take medications, but is afraid to eat. CT with some perihepatic fluid of uncertain significance. GB, liver, pancreas and GI tract not remarkable. No remarkable labs. H/o GERD on omeprazole daily. No dysphagia. No PUD, GB, liver or pancreatic history. Former smoker. No alcohol abuse. H/o complicated diverticulitis needing sigmoid resection with temporary colostomy and loop ileostomy, subsequently reversed. 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 PMH: PMH: TIA, HTN, OA, PVD. A/P ops as above, hysterectomy, ECCE. FH: Family History: No pertinent hx Social History: Smoke: Quit ALCOHOL: rare Drugs: None ROS: GEN: Denies fevers, chills, sweats HEENT: Denies blurred vision, sore throat CV: Denies chest pain RESP: Denies shortness of air, cough GI: Per HPI : Denies hematuria, dysuria ENDO: Denies weight changes NEURO: Denies confusion, dizziness MSK: Denies weakness, joint pain/swelling SKIN: Denies jaundice, pruritus Vitals: Vitals: Vital Signs Date Time Temp Pulse Resp B/P (MAP) Pulse Ox O2 Delivery O2 Flow Rate FiO2 10/04/21 11:00 98.0 66 18 134/63 (86) 91 98.0 10/04/21 08:00 Room Air Labs: Labs: Laboratory Tests Test 10/03/21 15:35 10/03/21 15:42 10/03/21 16:10 10/04/21 07:05 Urine Collection Type Unknown Urine Color Yellow Urine Clarity Clear Urine pH 6.0 (<5.0-8.0) Urine Specific [place] 1.020 (1.000-1.030) Urine Protein Negative mg/dL (NEG-TRACE) Urine Glucose (UA) Negative mg/dL (NEG) Urine Ketones (Stick) Negative mg/dL (NEG) Urine Blood Trace (NEG) Urine Nitrite Negative (NEG) Urine Bilirubin Negative (NEG) Urine Urobilinogen Dipstick 2.0 mg/dL (0.2 mg/dL) Urine Leukocyte Esterase Negative (NEG) Urine RBC 1-2 /HPF (0-2) Urine WBC 1-4 /HPF (0-4) Urine Squamous Epithelial Cells Few /LPF Urine Bacteria 0 /HPF (0-FEW) Urine Mucus Slight /LPF White Blood Count 11.7 x10^3/uL (4.0-11.0) 11.0 x10^3/uL (4.0-11.0) Red Blood Count 3.20 x10^6/uL (3.50-5.40) 2.78 x10^6/uL (3.50-5.40) Hemoglobin 10.2 g/dL (12.0-15.5) 8.9 g/dL (12.0-15.5) Hematocrit 31.6 % (36.0-47.0) 27.3 % (36.0-47.0) Mean Corpuscular Volume 99 fL (79-100) 99 fL (79-100) Mean Corpuscular Hemoglobin 32 pg (25-35) 32 pg (25-35) Mean Corpuscular Hemoglobin Concent 33 g/dL (31-37) 33 g/dL (31-37) Red Cell Distribution Width 14.4 % (11.5-14.5) 14.1 % (11.5-14.5) Platelet Count 586 x10^3/uL (140-400) 504 x10^3/uL (140-400) Neutrophils (%) (Auto) 83 % (31-73) 82 % (31-73) Lymphocytes (%) (Auto) 11 % (24-48) 10 % (24-48) Monocytes (%) (Auto) 4 % (0-9) 6 % (0-9) Eosinophils (%) (Auto) 0 % (0-3) 1 % (0-3) Basophils (%) (Auto) 1 % (0-3) 0 % (0-3) Neutrophils # (Auto) 9.7 x10^3/uL (1.8-7.7) 9.1 x10^3/uL (1.8-7.7) Lymphocytes # (Auto) 1.3 x10^3/uL (1.0-4.8) 1.2 x10^3/uL (1.0-4.8) Monocytes # (Auto) 0.5 x10^3/uL (0.0-1.1) 0.7 x10^3/uL (0.0-1.1) Eosinophils # (Auto) 0.0 x10^3/uL (0.0-0.7) 0.1 x10^3/uL (0.0-0.7) Basophils # (Auto) 0.1 x10^3/uL (0.0-0.2) 0.0 x10^3/uL (0.0-0.2) Prothrombin Time 13.7 SEC (11.7-14.0) Prothromb Time International Ratio 1.1 (0.8-1.1) Activated Partial Thromboplast Time 23 SEC (24-38) Sodium Level 134 mmol/L (136-145) 138 mmol/L (136-145) Potassium Level 4.6 mmol/L (3.5-5.1) 4.6 mmol/L (3.5-5.1) Chloride Level 97 mmol/L (98-107) 102 mmol/L (98-107) Carbon Dioxide Level 27 mmol/L (21-32) 21 mmol/L (21-32) Anion Gap 10 (6-14) 15 (6-14) Blood Urea Nitrogen 21 mg/dL (7-20) 15 mg/dL (7-20) Creatinine 1.6 mg/dL (0.6-1.0) 1.4 mg/dL (0.6-1.0) Estimated GFR (Cockcroft-Gault) 30.8 35.9 BUN/Creatinine Ratio 13 (6-20) 11 (6-20) Glucose Level 122 mg/dL (70-99) 89 mg/dL (70-99) Calcium Level 9.1 mg/dL (8.5-10.1) 7.4 mg/dL (8.5-10.1) Magnesium Level 2.2 mg/dL (1.8-2.4) Total Bilirubin 0.5 mg/dL (0.2-1.0) 0.6 mg/dL (0.2-1.0) Aspartate Amino Transf (AST/SGOT) 34 U/L (15-37) 17 U/L (15-37) Alanine Aminotransferase (ALT/SGPT) 40 U/L (14-59) 30 U/L (14-59) Alkaline Phosphatase 59 U/L (46-116) 41 U/L (46-116) Troponin I High Sensitivity 8 ng/L (4-50) Total Protein 7.9 g/dL (6.4-8.2) 6.5 g/dL (6.4-8.2) Albumin 3.2 g/dL (3.4-5.0) 2.3 g/dL (3.4-5.0) Albumin/Globulin Ratio 0.7 (1.0-1.7) 0.5 (1.0-1.7) Lipase 194 U/L (73-393) Influenza Type A Antigen Negative (NEGATIVE) Influenza Type B Antigen Negative (NEGATIVE) SARS-CoV-2 Antigen (Rapid) Negative (NEGATIVE) Chronic normocytic anemia. Allergies: Coded Allergies: adhesive (Verified Allergy, Intermediate, Rash, 10/03/21) Medications: Current Medications Medications (Trade) Dose Ordered Sig/Ella Route PRN Reason Start Time Stop Time Status Last Admin Dose Admin Famotidine (Pepcid Vial) 20 mg 1X ONCE IVP 10/03/21 15:45 10/03/21 15:46 DC 10/03/21 15:52 Ondansetron HCl (Zofran) 4 mg 1X ONCE IVP 10/03/21 15:45 10/03/21 15:46 DC 10/03/21 15:52 Sodium Chloride 1,000 ml @ 1,000 mls/hr 1X ONCE IV 10/03/21 15:45 10/03/21 16:44 DC 10/03/21 15:52 Piperacillin Sod/ Tazobactam Sod 2.25 gm/Sodium Chloride 50 ml @ 100 mls/hr 1X ONCE IV 10/03/21 19:00 10/03/21 19:29 DC 10/03/21 19:12 Pantoprazole Sodium (PROTONIX VIAL for IV PUSH) 40 mg DAILY IVP 10/04/21 09:00 10/04/21 08:03 Sodium Chloride 1,000 ml @ 100 mls/hr Q10H IV 10/03/21 21:00 10/04/21 08:04 Morphine Sulfate (Morphine Sulfate) 2 mg PRN Q2HR PRN IVP SEVERE PAIN 7-10 10/03/21 21:00 10/04/21 04:29 Piperacillin Sod/ Tazobactam Sod 2.25 gm/Sodium Chloride 50 ml @ 100 mls/hr Q6HRS IV 10/04/21 06:00 10/04/21 11:23 Imaging: Imaging: CT reviewed. PE: GEN: NAD HEENT: Atraumatic, PERRLA LUNGS: CTAB HEART: RRR, no murmurs ABD: NABS, S/ND/tender along rectus muscles bilaterally and at right costal margin, no masses EXTREMITY: No edema SKIN: No rashes, no jaundice NEURO/PSYCH: A & O 3 A/P: A/P: IMP: Abdominal pain. History and exam do not suggest intra-abdominal catastrophe. Would favor rectus muscle strain. N, V--intermittent and cause uncertain, but not seemingly related to above. GERD? GERD Diverticulosis complicated by diverticulitis/sigmoid stricture, S/P resection. REC: Continue PPI, IV for now. Would offer clears and observe. Consider local abdominal heat. --other pending. DEBI ORELLANA MD Oct 04, 2021 12:26
[2021-10-04] MEDS: CHOLECALCIFEROL (VITAMIN D3) 1,000 UNIT TABLET PO SCH (12:55)
[2021-10-04] MEDS: METOPROLOL TART IMMED RELEASE 50 MG TABLET. PO SCH ×2 (12:56→20:32)
--- NOTE | 2021-10-04 14:28 | PDOC2 ---
CONSULT Date of Consult Date of Consult DATE: 10/04/21 TIME: 14:25 Reason for Consult Reason for Consult: abd fluid Referring Physician Referring Physician: Dr. Coy Identification/Chief Complaint Chief Complaint RUQ abd pain Source Source: Chart review, Patient History of Present Illness Reason for Visit: 81 yo F with c/o RUQ abd pain after straining with constipated stools one month ago. Pt persists, but notes normal stools. Doing well otherwise Past Medical History Cardiovascular: HTN, Other Pulmonary: No pertinent hx GI: Diverticulosis Heme/Onc: No pertinent hx Hepatobiliary: No pertinent hx Psych: No pertinent hx Rheumatologic: No pertinent hx Infectious disease: No pertinent hx Renal/: No pertinent hx Endocrine: No pertinent hx Past Surgical History Past Surgical History: Colectomy, Colon Resection, Other (colostomy and takedown) Family History Family History: No Significant, Other Social History Quit ALCOHOL: rare Drugs: None Lives: with Family Current Problem List Problem List Problems Medical Problems: (1) Abdominal fluid collection Status: Acute (2) Abdominal pain Status: Acute Current Medications Current Medications Current Medications Famotidine (Pepcid Vial) 20 mg 1X ONCE IVP Last administered on 10/03/21at 15:52; Start 10/03/21 at 15:45; Stop 10/03/21 at 15:46; Status DC Ondansetron HCl (Zofran) 4 mg 1X ONCE IVP Last administered on 10/03/21at 15:52; Start 10/03/21 at 15:45; Stop 10/03/21 at 15:46; Status DC Sodium Chloride 1,000 ml @ 1,000 mls/hr 1X ONCE IV Last administered on 10/03/21at 15:52; Start 10/03/21 at 15:45; Stop 10/03/21 at 16:44; Status DC Pantoprazole Sodium (PROTONIX VIAL for IV PUSH) 40 mg 1X ONCE IVP ; Start 10/03/21 at 19:00; Stop 10/03/21 at 19:01; Status Cancel Piperacillin Sod/ Tazobactam Sod 3.375 gm/Sodium Chloride 50 ml @ 100 mls/hr 1X ONCE IV ; Start 10/03/21 at 18:45; Stop 10/03/21 at 19:14; Status UNV Piperacillin Sod/ Tazobactam Sod 2.25 gm/Sodium Chloride 50 ml @ 100 mls/hr 1X ONCE IV Last administered on 10/03/21at 19:12; Start 10/03/21 at 19:00; Stop 10/03/21 at 19:29; Status DC Pantoprazole Sodium (PROTONIX VIAL for IV PUSH) 40 mg DAILY IVP Last administered on 10/04/21at 08:03; Start 10/04/21 at 09:00; Stop 10/04/21 at 12:28; Status DC Piperacillin Sod/ Tazobactam Sod (Zosyn Per Pharmacy) 1 each PRN DAILY PRN MC SEE COMMENTS; Start 10/03/21 at 21:00 Sodium Chloride 1,000 ml @ 100 mls/hr Q10H IV Last administered on 10/04/21at 08:04; Start 10/03/21 at 21:00 Ondansetron HCl (Zofran) 4 mg PRN Q8HRS PRN IVP NAUSEA/VOMITING 1ST CHOICE; Start 10/03/21 at 21:00 Morphine Sulfate (Morphine Sulfate) 2 mg PRN Q2HR PRN IVP SEVERE PAIN 7-10 Last administered on 10/04/21at 04:29; Start 10/03/21 at 21:00 Famotidine (Pepcid Vial) 20 mg DAILY IVP ; Start 10/04/21 at 09:00; Stop 10/03/21 at 21:03; Status DC Piperacillin Sod/ Tazobactam Sod 2.25 gm/Sodium Chloride 50 ml @ 100 mls/hr Q6HRS IV Last administered on 10/04/21at 11:23; Start 10/04/21 at 06:00 Vitamin D (Vitamin D3) 1,000 unit DAILY PO Last administered on 10/04/21at 12:55; Start 10/04/21 at 12:30 Metoprolol Tartrate (Lopressor) 50 mg BID PO Last administered on 10/04/21at 12:56; Start 10/04/21 at 12:30 Amlodipine Besylate (Norvasc) 2.5 mg DAILY PO Last administered on 10/04/21at 12:55; Start 10/04/21 at 12:30 Lactobacillus Rhamnosus (Culturelle) 1 cap DAILY PO ; Start 10/05/21 at 09:00 Non-Formulary Medication (Omeprazole ) 20 mg DAILY PO ; Start 10/05/21 at 09:00; Status UNV Amitriptyline HCl (Elavil) 10 mg QHS PO ; Start 10/04/21 at 21:00 Pantoprazole Sodium (PROTONIX VIAL for IV PUSH) 40 mg BID AC IVP ; Start 10/04/21 at 17:30 Active Scripts Active Reported Stool Softener (Docusate Sodium) 50 Mg Capsule 1 Cap PO DAILY PRN 30 Days Tylenol (Acetaminophen) 325 Mg Tablet 1-2 Tab PO HS Perphen-Amitrip 2 Mg-10 Mg Tab (Perphenazine/Amitriptyline Hcl) 1 Each Tablet 1 Tab PO QHS Methotrexate (Methotrexate Sodium) 2.5 Mg Tablet 10 Tab PO TUESDAY Folic Acid 0.8 Mg Capsule 1 Cap PO DAILY 30 Days Vitamin D3 (Vitamin D) 25 Mcg Tablet 25 Mcg PO DAILY 1,000 UNITS = 25 MCG Amlodipine Besylate 2.5 Mg Tablet 2.5 Mg PO DAILY Vit C-Quyen Hips 500 mg Chew Tb (Ascorbic Acid/Ascorbate Sodium) 500 Mg Tab.chew 500 Mg PO DAILY Probiotic Acidophilus (Lactobacillus Acidophilus) 1 Each Tablet 1 Each PO DAILY Metoprolol Tartrate 50 Mg Tablet 50 Mg PO BID Omeprazole 20 Mg Tablet.dr 20 Mg PO DAILY Multivitamins (Multivitamin) 1 Each Tablet 1 Tab PO DAILY Allergies Allergies: Coded Allergies: adhesive (Verified Allergy, Intermediate, Rash, 10/03/21) ROS Gastrointestinal: Yes Abdominal Pain Physical Exam General: Alert, Oriented X3, Cooperative, No acute distress HEENT: Atraumatic Lungs: Normal air movement Abdomen: Soft, Other (mild TTP RUQ) Extremities: No clubbing, No cyanosis Skin: No rashes, No breakdown Neuro: Normal speech, Sensation intact Psych/Mental Status: Mental status NL, Mood NL Vitals VITALS Vital Signs Date Time Temp Pulse Resp B/P (MAP) Pulse Ox O2 Delivery O2 Flow Rate FiO2 10/04/21 12:56 66 134/63 10/04/21 11:00 98.0 18 91 98.0 10/04/21 08:00 Room Air Labs Labs Laboratory Tests Test 10/03/21 15:35 10/03/21 15:42 10/03/21 16:10 10/04/21 07:05 Urine Collection Type Unknown Urine Color Yellow Urine Clarity Clear Urine pH 6.0 (<5.0-8.0) Urine Specific [place] 1.020 (1.000-1.030) Urine Protein Negative mg/dL (NEG-TRACE) Urine Glucose (UA) Negative mg/dL (NEG) Urine Ketones (Stick) Negative mg/dL (NEG) Urine Blood Trace (NEG) Urine Nitrite Negative (NEG) Urine Bilirubin Negative (NEG) Urine Urobilinogen Dipstick 2.0 mg/dL (0.2 mg/dL) Urine Leukocyte Esterase Negative (NEG) Urine RBC 1-2 /HPF (0-2) Urine WBC 1-4 /HPF (0-4) Urine Squamous Epithelial Cells Few /LPF Urine Bacteria 0 /HPF (0-FEW) Urine Mucus Slight /LPF White Blood Count 11.7 x10^3/uL (4.0-11.0) 11.0 x10^3/uL (4.0-11.0) Red Blood Count 3.20 x10^6/uL (3.50-5.40) 2.78 x10^6/uL (3.50-5.40) Hemoglobin 10.2 g/dL (12.0-15.5) 8.9 g/dL (12.0-15.5) Hematocrit 31.6 % (36.0-47.0) 27.3 % (36.0-47.0) Mean Corpuscular Volume 99 fL (79-100) 99 fL (79-100) Mean Corpuscular Hemoglobin 32 pg (25-35) 32 pg (25-35) Mean Corpuscular Hemoglobin Concent 33 g/dL (31-37) 33 g/dL (31-37) Red Cell Distribution Width 14.4 % (11.5-14.5) 14.1 % (11.5-14.5) Platelet Count 586 x10^3/uL (140-400) 504 x10^3/uL (140-400) Neutrophils (%) (Auto) 83 % (31-73) 82 % (31-73) Lymphocytes (%) (Auto) 11 % (24-48) 10 % (24-48) Monocytes (%) (Auto) 4 % (0-9) 6 % (0-9) Eosinophils (%) (Auto) 0 % (0-3) 1 % (0-3) Basophils (%) (Auto) 1 % (0-3) 0 % (0-3) Neutrophils # (Auto) 9.7 x10^3/uL (1.8-7.7) 9.1 x10^3/uL (1.8-7.7) Lymphocytes # (Auto) 1.3 x10^3/uL (1.0-4.8) 1.2 x10^3/uL (1.0-4.8) Monocytes # (Auto) 0.5 x10^3/uL (0.0-1.1) 0.7 x10^3/uL (0.0-1.1) Eosinophils # (Auto) 0.0 x10^3/uL (0.0-0.7) 0.1 x10^3/uL (0.0-0.7) Basophils # (Auto) 0.1 x10^3/uL (0.0-0.2) 0.0 x10^3/uL (0.0-0.2) Prothrombin Time 13.7 SEC (11.7-14.0) Prothromb Time International Ratio 1.1 (0.8-1.1) Activated Partial Thromboplast Time 23 SEC (24-38) Sodium Level 134 mmol/L (136-145) 138 mmol/L (136-145) Potassium Level 4.6 mmol/L (3.5-5.1) 4.6 mmol/L (3.5-5.1) Chloride Level 97 mmol/L (98-107) 102 mmol/L (98-107) Carbon Dioxide Level 27 mmol/L (21-32) 21 mmol/L (21-32) Anion Gap 10 (6-14) 15 (6-14) Blood Urea Nitrogen 21 mg/dL (7-20) 15 mg/dL (7-20) Creatinine 1.6 mg/dL (0.6-1.0) 1.4 mg/dL (0.6-1.0) Estimated GFR (Cockcroft-Gault) 30.8 35.9 BUN/Creatinine Ratio 13 (6-20) 11 (6-20) Glucose Level 122 mg/dL (70-99) 89 mg/dL (70-99) Calcium Level 9.1 mg/dL (8.5-10.1) 7.4 mg/dL (8.5-10.1) Magnesium Level 2.2 mg/dL (1.8-2.4) Total Bilirubin 0.5 mg/dL (0.2-1.0) 0.6 mg/dL (0.2-1.0) Aspartate Amino Transf (AST/SGOT) 34 U/L (15-37) 17 U/L (15-37) Alanine Aminotransferase (ALT/SGPT) 40 U/L (14-59) 30 U/L (14-59) Alkaline Phosphatase 59 U/L (46-116) 41 U/L (46-116) Troponin I High Sensitivity 8 ng/L (4-50) Total Protein 7.9 g/dL (6.4-8.2) 6.5 g/dL (6.4-8.2) Albumin 3.2 g/dL (3.4-5.0) 2.3 g/dL (3.4-5.0) Albumin/Globulin Ratio 0.7 (1.0-1.7) 0.5 (1.0-1.7) Lipase 194 U/L (73-393) Influenza Type A Antigen Negative (NEGATIVE) Influenza Type B Antigen Negative (NEGATIVE) SARS-CoV-2 Antigen (Rapid) Negative (NEGATIVE) Laboratory Tests Test 10/03/21 15:35 10/03/21 15:42 10/03/21 16:10 10/04/21 07:05 Urine Collection Type Unknown Urine Color Yellow Urine Clarity Clear Urine pH 6.0 (<5.0-8.0) Urine Specific [place] 1.020 (1.000-1.030) Urine Protein Negative mg/dL (NEG-TRACE) Urine Glucose (UA) Negative mg/dL (NEG) Urine Ketones (Stick) Negative mg/dL (NEG) Urine Blood Trace (NEG) Urine Nitrite Negative (NEG) Urine Bilirubin Negative (NEG) Urine Urobilinogen Dipstick 2.0 mg/dL (0.2 mg/dL) Urine Leukocyte Esterase Negative (NEG) Urine RBC 1-2 /HPF (0-2) Urine WBC 1-4 /HPF (0-4) Urine Squamous Epithelial Cells Few /LPF Urine Bacteria 0 /HPF (0-FEW) Urine Mucus Slight /LPF White Blood Count 11.7 x10^3/uL (4.0-11.0) 11.0 x10^3/uL (4.0-11.0) Red Blood Count 3.20 x10^6/uL (3.50-5.40) 2.78 x10^6/uL (3.50-5.40) Hemoglobin 10.2 g/dL (12.0-15.5) 8.9 g/dL (12.0-15.5) Hematocrit 31.6 % (36.0-47.0) 27.3 % (36.0-47.0) Mean Corpuscular Volume 99 fL (79-100) 99 fL (79-100) Mean Corpuscular Hemoglobin 32 pg (25-35) 32 pg (25-35) Mean Corpuscular Hemoglobin Concent 33 g/dL (31-37) 33 g/dL (31-37) Red Cell Distribution Width 14.4 % (11.5-14.5) 14.1 % (11.5-14.5) Platelet Count 586 x10^3/uL (140-400) 504 x10^3/uL (140-400) Neutrophils (%) (Auto) 83 % (31-73) 82 % (31-73) Lymphocytes (%) (Auto) 11 % (24-48) 10 % (24-48) Monocytes (%) (Auto) 4 % (0-9) 6 % (0-9) Eosinophils (%) (Auto) 0 % (0-3) 1 % (0-3) Basophils (%) (Auto) 1 % (0-3) 0 % (0-3) Neutrophils # (Auto) 9.7 x10^3/uL (1.8-7.7) 9.1 x10^3/uL (1.8-7.7) Lymphocytes # (Auto) 1.3 x10^3/uL (1.0-4.8) 1.2 x10^3/uL (1.0-4.8) Monocytes # (Auto) 0.5 x10^3/uL (0.0-1.1) 0.7 x10^3/uL (0.0-1.1) Eosinophils # (Auto) 0.0 x10^3/uL (0.0-0.7) 0.1 x10^3/uL (0.0-0.7) Basophils # (Auto) 0.1 x10^3/uL (0.0-0.2) 0.0 x10^3/uL (0.0-0.2) Prothrombin Time 13.7 SEC (11.7-14.0) Prothromb Time International Ratio 1.1 (0.8-1.1) Activated Partial Thromboplast Time 23 SEC (24-38) Sodium Level 134 mmol/L (136-145) 138 mmol/L (136-145) Potassium Level 4.6 mmol/L (3.5-5.1) 4.6 mmol/L (3.5-5.1) Chloride Level 97 mmol/L (98-107) 102 mmol/L (98-107) Carbon Dioxide Level 27 mmol/L (21-32) 21 mmol/L (21-32) Anion Gap 10 (6-14) 15 (6-14) Blood Urea Nitrogen 21 mg/dL (7-20) 15 mg/dL (7-20) Creatinine 1.6 mg/dL (0.6-1.0) 1.4 mg/dL (0.6-1.0) Estimated GFR (Cockcroft-Gault) 30.8 35.9 BUN/Creatinine Ratio 13 (6-20) 11 (6-20) Glucose Level 122 mg/dL (70-99) 89 mg/dL (70-99) Calcium Level 9.1 mg/dL (8.5-10.1) 7.4 mg/dL (8.5-10.1) Magnesium Level 2.2 mg/dL (1.8-2.4) Total Bilirubin 0.5 mg/dL (0.2-1.0) 0.6 mg/dL (0.2-1.0) Aspartate Amino Transf (AST/SGOT) 34 U/L (15-37) 17 U/L (15-37) Alanine Aminotransferase (ALT/SGPT) 40 U/L (14-59) 30 U/L (14-59) Alkaline Phosphatase 59 U/L (46-116) 41 U/L (46-116) Troponin I High Sensitivity 8 ng/L (4-50) Total Protein 7.9 g/dL (6.4-8.2) 6.5 g/dL (6.4-8.2) Albumin 3.2 g/dL (3.4-5.0) 2.3 g/dL (3.4-5.0) Albumin/Globulin Ratio 0.7 (1.0-1.7) 0.5 (1.0-1.7) Lipase 194 U/L (73-393) Influenza Type A Antigen Negative (NEGATIVE) Influenza Type B Antigen Negative (NEGATIVE) SARS-CoV-2 Antigen (Rapid) Negative (NEGATIVE) Images Images CT with hemorrhagic fluid, minimal Assessment/Plan Assessment/Plan hemoperitoneum, mild suspect muscle injury pending straining no obvious surgical intervention needed agree with ADAT d/w GI Thanks for consult! ZEYNEP GARCIA MD Oct 04, 2021 14:28
[2021-10-04 15:00] VITALS: BP 121/56
[2021-10-04] MEDS: PANTOPRAZOLE IV PUSH 40 MG VIAL. IVP SCH (17:33)
[2021-10-04 19:40] VITALS: BP 112/57
[2021-10-04] MEDS: AMITRIPTYLINE HCL 10 MG TABLET. PO SCH (20:32)
[2021-10-04 23:12] VITALS: BP 113/56
[2021-10-05] MEDS: PIPERACILLIN/TAZOBACTAM 2.25 GM in IV NORMAL SALINE 50ML 50 ML IV SCH ×3 (01:31→12:31)
[2021-10-05 02:47] VITALS: BP 119/57
[2021-10-05] MEDS: IV NORMAL SALINE 1000ML BAG 1,000 ML IV SCH ×3 (03:00→20:13)
[2021-10-05 07:00] VITALS: BP 133/60
[2021-10-05] MEDS: LACTOBACILLUS RHAMNOSUS GG 1 CAPSULE. PO SCH ×2 (09:00→20:12)
[2021-10-05] MEDS: CHOLECALCIFEROL (VITAMIN D3) 1,000 UNIT TABLET PO SCH (09:00)
[2021-10-05] MEDS: METOPROLOL TART IMMED RELEASE 50 MG TABLET. PO SCH ×2 (09:00→20:13)
[2021-10-05] MEDS ORDERED: NON FORMULARY ITEM (Omeprazole 20 MG) PO SCH (09:00)
--- NOTE | 2021-10-05 09:39 | PDOC ---
SURGICAL PROGRESS NOTE DATE: 10/05/21 TIME: 09:38 Subjective resting some abdominal pain no nausea Vital Signs Vital Signs Date Time Temp Pulse Resp B/P (MAP) Pulse Ox O2 Delivery O2 Flow Rate FiO2 10/05/21 07:00 98.3 95 20 133/60 (84) 91 Room Air 98.3 I&O Intake and Output 10/05/21 07:00 Intake Total 1090 ml Output Total 575 ml Balance 515 ml Intake Oral 1090 ml Output Urine Total 575 ml General: Alert, Oriented X3, Cooperative Abdomen: Soft, Other (ND, ttp upper abdomen ) Labs Laboratory Tests Test 10/03/21 15:35 10/03/21 15:42 10/03/21 16:10 10/04/21 07:05 Urine Collection Type Unknown Urine Color Yellow Urine Clarity Clear Urine pH 6.0 (<5.0-8.0) Urine Specific [place] 1.020 (1.000-1.030) Urine Protein Negative mg/dL (NEG-TRACE) Urine Glucose (UA) Negative mg/dL (NEG) Urine Ketones (Stick) Negative mg/dL (NEG) Urine Blood Trace (NEG) Urine Nitrite Negative (NEG) Urine Bilirubin Negative (NEG) Urine Urobilinogen Dipstick 2.0 mg/dL (0.2 mg/dL) Urine Leukocyte Esterase Negative (NEG) Urine RBC 1-2 /HPF (0-2) Urine WBC 1-4 /HPF (0-4) Urine Squamous Epithelial Cells Few /LPF Urine Bacteria 0 /HPF (0-FEW) Urine Mucus Slight /LPF White Blood Count 11.7 x10^3/uL (4.0-11.0) 11.0 x10^3/uL (4.0-11.0) Red Blood Count 3.20 x10^6/uL (3.50-5.40) 2.78 x10^6/uL (3.50-5.40) Hemoglobin 10.2 g/dL (12.0-15.5) 8.9 g/dL (12.0-15.5) Hematocrit 31.6 % (36.0-47.0) 27.3 % (36.0-47.0) Mean Corpuscular Volume 99 fL (79-100) 99 fL (79-100) Mean Corpuscular Hemoglobin 32 pg (25-35) 32 pg (25-35) Mean Corpuscular Hemoglobin Concent 33 g/dL (31-37) 33 g/dL (31-37) Red Cell Distribution Width 14.4 % (11.5-14.5) 14.1 % (11.5-14.5) Platelet Count 586 x10^3/uL (140-400) 504 x10^3/uL (140-400) Neutrophils (%) (Auto) 83 % (31-73) 82 % (31-73) Lymphocytes (%) (Auto) 11 % (24-48) 10 % (24-48) Monocytes (%) (Auto) 4 % (0-9) 6 % (0-9) Eosinophils (%) (Auto) 0 % (0-3) 1 % (0-3) Basophils (%) (Auto) 1 % (0-3) 0 % (0-3) Neutrophils # (Auto) 9.7 x10^3/uL (1.8-7.7) 9.1 x10^3/uL (1.8-7.7) Lymphocytes # (Auto) 1.3 x10^3/uL (1.0-4.8) 1.2 x10^3/uL (1.0-4.8) Monocytes # (Auto) 0.5 x10^3/uL (0.0-1.1) 0.7 x10^3/uL (0.0-1.1) Eosinophils # (Auto) 0.0 x10^3/uL (0.0-0.7) 0.1 x10^3/uL (0.0-0.7) Basophils # (Auto) 0.1 x10^3/uL (0.0-0.2) 0.0 x10^3/uL (0.0-0.2) Prothrombin Time 13.7 SEC (11.7-14.0) Prothromb Time International Ratio 1.1 (0.8-1.1) Activated Partial Thromboplast Time 23 SEC (24-38) Sodium Level 134 mmol/L (136-145) 138 mmol/L (136-145) Potassium Level 4.6 mmol/L (3.5-5.1) 4.6 mmol/L (3.5-5.1) Chloride Level 97 mmol/L (98-107) 102 mmol/L (98-107) Carbon Dioxide Level 27 mmol/L (21-32) 21 mmol/L (21-32) Anion Gap 10 (6-14) 15 (6-14) Blood Urea Nitrogen 21 mg/dL (7-20) 15 mg/dL (7-20) Creatinine 1.6 mg/dL (0.6-1.0) 1.4 mg/dL (0.6-1.0) Estimated GFR (Cockcroft-Gault) 30.8 35.9 BUN/Creatinine Ratio 13 (6-20) 11 (6-20) Glucose Level 122 mg/dL (70-99) 89 mg/dL (70-99) Calcium Level 9.1 mg/dL (8.5-10.1) 7.4 mg/dL (8.5-10.1) Magnesium Level 2.2 mg/dL (1.8-2.4) Total Bilirubin 0.5 mg/dL (0.2-1.0) 0.6 mg/dL (0.2-1.0) Aspartate Amino Transf (AST/SGOT) 34 U/L (15-37) 17 U/L (15-37) Alanine Aminotransferase (ALT/SGPT) 40 U/L (14-59) 30 U/L (14-59) Alkaline Phosphatase 59 U/L (46-116) 41 U/L (46-116) Troponin I High Sensitivity 8 ng/L (4-50) Total Protein 7.9 g/dL (6.4-8.2) 6.5 g/dL (6.4-8.2) Albumin 3.2 g/dL (3.4-5.0) 2.3 g/dL (3.4-5.0) Albumin/Globulin Ratio 0.7 (1.0-1.7) 0.5 (1.0-1.7) Lipase 194 U/L (73-393) Coronavirus (COVID-19)(PCR) Not detected (NOT DETECTD) Influenza Type A Antigen Negative (NEGATIVE) Influenza Type B Antigen Negative (NEGATIVE) SARS-CoV-2 Antigen (Rapid) Negative (NEGATIVE) Problem List Problems Medical Problems: (1) Abdominal fluid collection Status: Acute (2) Abdominal pain Status: Acute Assessment/Plan will check CBC no surgical plans round, chart 15 min Justicifation of Admission Dx: Justifications for Admission: Justification of Admission Dx: Yes Comments: hemoperitoneum [facility] Oct 05, 2021 09:39
--- NOTE | 2021-10-05 10:23 | PDOC ---
Date of Service: DATE: 10/05/21 TIME: 10:11 Subjective: Subjective: Ongoing upper abdominal pain - constant. Taking some clears. No stool since admission, usually takes stool softeners. Objective: Objective: ?on methotrexate - reviewed summary list after I saw Vital Signs: Vital Signs Date Time Temp Pulse Resp B/P (MAP) Pulse Ox O2 Delivery O2 Flow Rate FiO2 10/05/21 07:00 98.3 95 20 133/60 (84) 91 Room Air 98.3 Imaging: Abd US FINDINGS: Pancreas: Normal sonographic appearance. - Portions obscured: Tail - Lesions: None Liver: - Echotexture: Coarse - Echogenicity: Heterogeneous - Surface contour: Smooth - Lesions: 2.8 cm anechoic cyst in the left hepatic lobe. Biliary: No intrahepatic biliary duct dilation. - CBD: Measures up to 10 mm on this exam but only measured [address] 13 hours earlier. - Gallbladder: Nondistended - Contents: 1.8 cm stone - Wall: Normal - Other: No pericholecystic fluid. Spleen: - Craniocaudal length: 10.0 cm. - Lesions: None Right Kidney: - Renal length: 10.0 cm - Parenchyma: Normal parenchymal echogenicity. Normal parenchymal thickness. - Collecting system: No hydronephrosis. - Calculus: No echogenic, shadowing calculus. - Lesion: 3.4 cm anechoic exophytic cyst in the lower pole. Left Kidney: - Renal length: 9.7 cm - Parenchyma: Normal parenchymal echogenicity. Normal parenchymal thickness. - Collecting system: No hydronephrosis. - Calculus: No echogenic, shadowing calculus. - Lesion: 2.1 cm cyst in the lower pole. IVC: Imaged segments patent. Abdominal Aorta: Imaged segments patent. Ascites: Small volume abdominal ascites. Other: Partially visualized right pleural effusion. IMPRESSION: Nondistended gallbladder with single large gallstone. Dilated common bile duct by this exam but this is discordant with comparison CT, question the accuracy of the sonographic measurements. Clinical correlation is advised. Nonspecific changes in the hepatic parenchyma as described which could be seen with cirrhosis, hepatitis, or steatosis among other etiologies. Mild ascites and partially visualized right pleural effusion. Hepatic and bilateral renal cysts. CT A/P IMPRESSION: 1. Small amount of high density ascites noted in the abdomen which is nonspecific however could relate to hemorrhagic products. A discrete source is not identified. Correlate with appropriate lab values and recommend short-term follow-up imaging to assess for stability. 2. Appendix is not identified. PE: GEN: NAD LUNGS: CTAB HEART: RRR ABD: quiet BS, soft, BUQ discomfort NEURO/PSYCH: A & O 3 A/P: Abdominal pain - surgery following, suspected mild hemoperitoneum/muscle strain ACD/JESÚS N/v (resolved), h/o GERD - on PPI H/o diverticular disease s/p resection H/o C Diff, h/o constipation CRC screen, h/o adenomatous polyps - FS 2018, BE 2019 Cholelithiasis, ?fatty liver - LFTs WNL -- Supportive care from GI standpoint. Justicifation of Admission Dx: Justifications for Admission: Justification of Admission Dx: Yes IRASEMA MCCARTY Oct 05, 2021 10:23
[2021-10-05] MEDS ORDERED: POLYETHYLENE GLYCOL 3350 17 GM PACKET. PO PRN (10:30)
[2021-10-05] MEDS ORDERED: BISACODYL 5 MG TABLET.DR. PO PRN (10:30)
[2021-10-05 10:35] LABS: BASO # 0.1 x10^3/uL (0.0-0.2); BASO % 1 % (0-3); EOS # 0.2 x10^3/uL (0.0-0.7); EOS % 2 % (0-3); HEMATOCRIT 26.9 % (36.0-47.0); HEMOGLOBIN 8.9 g/dL (12.0-15.5); LYMPH # 0.6 x10^3/uL (1.0-4.8); LYMPH % 7 % (24-48); MEAN CORPUSCULAR HEMOGLOBIN 33 pg (25-35); MEAN CORPUSCULAR HGB CONC 33 g/dL (31-37); MEAN CORPUSCULAR VOLUME 100 fL (79-100); MONO # 0.7 x10^3/uL (0.0-1.1); MONO % 8 % (0-9); NEUT # 7.3 x10^3/uL (1.8-7.7); NEUT % 83 % (31-73); PLATELET COUNT 475 x10^3/uL (140-400); RED BLOOD COUNT 2.68 x10^6/uL (3.50-5.40); RED CELL DISTRIBUTION WIDTH 14.2 % (11.5-14.5); WHITE BLOOD COUNT 8.9 x10^3/uL (4.0-11.0)
--- NOTE | 2021-10-05 10:49 | NUR ---
SW following. Discussed with RN, pt from home alone, room air, clear liquid diet, COVID-19 negative, gets around fine. GI and Surgery following. IV abx. RN advised no SW needs at this time. SW will continue to follow.
[2021-10-05 11:00] VITALS: BP 146/67
--- NOTE | 2021-10-05 12:24 | PDOC ---
[facility] [facility] PROGRESS NOTE Date of Service DOS: DATE: 10/05/21 TIME: 12:19 Chief Complaint Chief Complaint acute on chronic abdominal pain s/p ileostomy and take down, last seen herei n 2019 GI consult Enteritis, Zosyn GERD, PPI given continue History of Present Illness History of Present Illness 10/05 Patient evaluated examined at bedside. Says she still having some abdominal pain. Surgery GI following. Continue antibiotics. Stool softener added today. Symptomatic treatment. Discussed with RN. 10/04 Patient eval and examined at bedside. Resting in bed saying abdominal pain was a little improved. No nausea vomiting diarrhea. Continue empiric abx. Gi consulted. Discussed wtih bedside RN. Vitals/I&O Vitals/I&O: Vital Signs Date Time Temp Pulse Resp B/P (MAP) Pulse Ox O2 Delivery O2 Flow Rate FiO2 10/05/21 07:00 98.3 95 20 133/60 (84) 91 Room Air 98.3 I & O 10/04/21 10/04/21 10/05/21 15:00 23:00 07:00 Intake Total 500 ml 540 ml 50 ml Output Total 350 ml 225 ml Balance 150 ml 540 ml -175 ml Physical Exam General: Alert, Oriented X3, Cooperative Heart: Regular rate Lungs: Clear Abdomen: Soft, Other (ND, ttp upper abdomen ) Extremities: No clubbing, No cyanosis Skin: No rashes, No breakdown Labs Labs: Laboratory Tests Test 10/05/21 10:00 White Blood Count 8.9 x10^3/uL (4.0-11.0) Red Blood Count 2.68 x10^6/uL (3.50-5.40) Hemoglobin 8.9 g/dL (12.0-15.5) Hematocrit 26.9 % (36.0-47.0) Mean Corpuscular Volume 100 fL (79-100) Mean Corpuscular Hemoglobin 33 pg (25-35) Mean Corpuscular Hemoglobin Concent 33 g/dL (31-37) Red Cell Distribution Width 14.2 % (11.5-14.5) Platelet Count 475 x10^3/uL (140-400) Neutrophils (%) (Auto) 83 % (31-73) Lymphocytes (%) (Auto) 7 % (24-48) Monocytes (%) (Auto) 8 % (0-9) Eosinophils (%) (Auto) 2 % (0-3) Basophils (%) (Auto) 1 % (0-3) Neutrophils # (Auto) 7.3 x10^3/uL (1.8-7.7) Lymphocytes # (Auto) 0.6 x10^3/uL (1.0-4.8) Monocytes # (Auto) 0.7 x10^3/uL (0.0-1.1) Eosinophils # (Auto) 0.2 x10^3/uL (0.0-0.7) Basophils # (Auto) 0.1 x10^3/uL (0.0-0.2) Assessment and Plan Assessmemt and Plan Problems Medical Problems: (1) Abdominal fluid collection Status: Acute (2) Abdominal pain Status: Acute Comment Review of Relevant I have reviewed the following items mariusz (where applicable) has been applied. Medications: Current Medications Medications (Trade) Dose Ordered Sig/Ella Route PRN Reason Start Time Stop Time Status Last Admin Dose Admin Vitamin D (Vitamin D3) 1,000 unit DAILY PO 10/04/21 12:30 10/04/21 12:55 Metoprolol Tartrate (Lopressor) 50 mg BID PO 10/04/21 12:30 10/04/21 20:32 Amlodipine Besylate (Norvasc) 2.5 mg DAILY PO 10/04/21 12:30 10/04/21 12:55 Amitriptyline HCl (Elavil) 10 mg QHS PO 10/04/21 21:00 10/04/21 20:32 Pantoprazole Sodium (PROTONIX VIAL for IV PUSH) 40 mg BID AC IVP 10/04/21 17:30 10/04/21 17:33 Justifications for Admission Other Justification YUKO FOFANA MD Oct 05, 2021 12:24
[2021-10-05] MEDS: PANTOPRAZOLE IV PUSH 40 MG VIAL. IVP SCH ×2 (12:25→20:12)
[2021-10-05 15:00] VITALS: BP 127/61
[2021-10-05] MEDS: MORPHINE SULFATE 2 MG/ML INJ. IVP PRN ×2 (16:39→20:12)
[2021-10-05 19:00] VITALS: BP 152/69
[2021-10-05] MEDS: AMOXICILLIN/K CLAV 875/125MG TABLET. PO SCH (20:12)
[2021-10-05] MEDS: AMITRIPTYLINE HCL 10 MG TABLET. PO SCH (20:12)
[2021-10-05] MEDS: ONDANSETRON PF 4 MG/2 ML VIAL. IVP PRN (20:13)
[2021-10-05 23:00] VITALS: BP 148/64
[2021-10-06 03:00] VITALS: BP 146/68
[2021-10-06] MEDS: IV NORMAL SALINE 1000ML BAG 1,000 ML IV SCH ×2 (06:03→16:07)
[2021-10-06 07:00] VITALS: BP 162/78
[2021-10-06] MEDS: ONDANSETRON PF 4 MG/2 ML VIAL. IVP PRN ×2 (08:09→17:19)
[2021-10-06] MEDS: PANTOPRAZOLE IV PUSH 40 MG VIAL. IVP SCH ×2 (08:09→17:19)
--- NOTE | 2021-10-06 08:45 | PDOC ---
MINGO CERVANTES [employer] 10/06/21 0845: SURGICAL PROGRESS NOTE DATE: 10/06/21 TIME: 08:45 Subjective ongoing issues with emesis no stools Vital Signs Vital Signs Date Time Temp Pulse Resp B/P (MAP) Pulse Ox O2 Delivery O2 Flow Rate FiO2 10/06/21 07:00 97.7 100 18 162/78 (106) 92 Room Air 97.7 I&O Intake and Output 10/06/21 07:00 Intake Total 1440 ml Output Total 600 ml Balance 840 ml Intake Oral 1440 ml Output Urine Total 600 ml General: Oriented X3, Cooperative Abdomen: Soft, Other (mild ttp lower abdomen ) Labs Laboratory Tests Test 10/05/21 10:00 White Blood Count 8.9 x10^3/uL (4.0-11.0) Red Blood Count 2.68 x10^6/uL (3.50-5.40) Hemoglobin 8.9 g/dL (12.0-15.5) Hematocrit 26.9 % (36.0-47.0) Mean Corpuscular Volume 100 fL (79-100) Mean Corpuscular Hemoglobin 33 pg (25-35) Mean Corpuscular Hemoglobin Concent 33 g/dL (31-37) Red Cell Distribution Width 14.2 % (11.5-14.5) Platelet Count 475 x10^3/uL (140-400) Neutrophils (%) (Auto) 83 % (31-73) Lymphocytes (%) (Auto) 7 % (24-48) Monocytes (%) (Auto) 8 % (0-9) Eosinophils (%) (Auto) 2 % (0-3) Basophils (%) (Auto) 1 % (0-3) Neutrophils # (Auto) 7.3 x10^3/uL (1.8-7.7) Lymphocytes # (Auto) 0.6 x10^3/uL (1.0-4.8) Monocytes # (Auto) 0.7 x10^3/uL (0.0-1.1) Eosinophils # (Auto) 0.2 x10^3/uL (0.0-0.7) Basophils # (Auto) 0.1 x10^3/uL (0.0-0.2) Laboratory Tests Test 10/05/21 10:00 White Blood Count 8.9 x10^3/uL (4.0-11.0) Red Blood Count 2.68 x10^6/uL (3.50-5.40) Hemoglobin 8.9 g/dL (12.0-15.5) Hematocrit 26.9 % (36.0-47.0) Mean Corpuscular Volume 100 fL (79-100) Mean Corpuscular Hemoglobin 33 pg (25-35) Mean Corpuscular Hemoglobin Concent 33 g/dL (31-37) Red Cell Distribution Width 14.2 % (11.5-14.5) Platelet Count 475 x10^3/uL (140-400) Neutrophils (%) (Auto) 83 % (31-73) Lymphocytes (%) (Auto) 7 % (24-48) Monocytes (%) (Auto) 8 % (0-9) Eosinophils (%) (Auto) 2 % (0-3) Basophils (%) (Auto) 1 % (0-3) Neutrophils # (Auto) 7.3 x10^3/uL (1.8-7.7) Lymphocytes # (Auto) 0.6 x10^3/uL (1.0-4.8) Monocytes # (Auto) 0.7 x10^3/uL (0.0-1.1) Eosinophils # (Auto) 0.2 x10^3/uL (0.0-0.7) Basophils # (Auto) 0.1 x10^3/uL (0.0-0.2) Problem List Problems Medical Problems: (1) Abdominal fluid collection Status: Acute (2) Abdominal pain Status: Acute Assessment/Plan hgb stable will check abd xr round, chart 15 min Justicifation of Admission Dx: Justifications for Admission: Justification of Admission Dx: Yes ZEYNEP GARCIA MD 10/06/21 1534: SURGICAL PROGRESS NOTE Assessment/Plan Pt seen and examined. Agree with Ms. Cervantes's note Pt with c/o N/V abd soft, mild TTP KUB wnl will cont supportive care MINGO CERVANTES APRN Oct 06, 2021 08:45 ZEYNEP GARCIA MD Oct 06, 2021 15:34
[2021-10-06] MEDS: METOPROLOL TART IMMED RELEASE 50 MG TABLET. PO SCH ×2 (09:00→20:25)
[2021-10-06] MEDS: CHOLECALCIFEROL (VITAMIN D3) 1,000 UNIT TABLET PO SCH (09:00)
[2021-10-06] MEDS: AMOXICILLIN/K CLAV 875/125MG TABLET. PO SCH (09:00)
--- NOTE | 2021-10-06 09:44 | RAD ---
XR ABDOMEN COMP ACUTE History: Vomiting Comparison: CT abdomen and pelvis 10/03/2021 Technique: Frontal chest with upright and supine radiographs of the abdomen and pelvis. Findings: Chest: Mild basilar opacities and small pleural effusions. Bowel gas pattern: Nonobstructive. No abnormal dilation. No excessive stool burden. Free air: None. Abnormal calcifications: Splenic and aortic vascular calcifications. Bones: No acute findings. Other: None. Impression: 1. Mild bibasilar atelectasis and small pleural effusions. 2. Nonobstructive bowel gas pattern. Electronically signed by: Jose Kelly MD (10/06/2021 9:42 AM) [id number]
[2021-10-06 10:23] VITALS: BP 149/69
[2021-10-06] MEDS ORDERED: METOPROLOL IV PUSH 5 MG/5 ML VIAL. IVP PRN (10:30)
[2021-10-06] MEDS ORDERED: hydrALAZINE 20 MG/ML VIAL. IVP PRN (10:30)
--- NOTE | 2021-10-06 10:49 | PDOC ---
Date of Service: DATE: 10/06/21 TIME: 10:44 Subjective: Subjective: Upper abd pain, nausea/vomiting ("bile"), no flatus/stool. Objective: Vital Signs: Vital Signs Date Time Temp Pulse Resp B/P (MAP) Pulse Ox O2 Delivery O2 Flow Rate FiO2 10/06/21 10:23 98.0 96 18 149/69 (95) 93 Room Air 98.0 Imaging: AAS 10/06 Impression: 1. Mild bibasilar atelectasis and small pleural effusions. 2. Nonobstructive bowel gas pattern. PE: GEN: resting, bilious fluid in emesis basin LUNGS: CTAB HEART: RRR ABD: quiet, tender across upper abd NEURO/PSYCH: A & O 3 A/P: Abdominal pain - mild hemoperitoneum/muscle strain - surgery following, interval x-ray as above ACD/JESÚS - Hgb stable yesterday N/v H/o diverticular disease s/p resection, h/o constipation Cholelithiasis -- Continue IV PPI, consider suppository. Justicifation of Admission Dx: Justifications for Admission: Justification of Admission Dx: Yes IRASEMA MCCARTY Oct 06, 2021 10:49
[2021-10-06] MEDS ORDERED: BISACODYL 10 MG SUPP.RECT. PR PRN (11:00)
--- NOTE | 2021-10-06 14:09 | PDOC ---
[facility] [facility] PROGRESS NOTE Date of Service DOS: DATE: 10/06/21 TIME: 14:08 Chief Complaint Chief Complaint acute on chronic abdominal pain s/p ileostomy and take down, last seen herei n 2018 GI consult Enteritis, Zosyn GERD, PPI given continue History of Present Illness History of Present Illness 10/06/2021 No acute events overnight. Patient seen examined bedside. AF and VSS. Patient had vomiting episode after morphine was given. She continues to have bilious vomiting. Abdominal x-ray shows nonobstructive bowel gas pattern. No signs of obvious obstruction. Abdomen is distended and firm. Diffuse tenderness. No bowel movement since Tuesday. Not passing flatus. Instructed patient to maintain upright position as much as possible and out of bed to chair 3 times daily. GI and surgery following. Appreciate their recommendations. Patient's chart, labs, images were reviewed and discussed with RN 10/05 Patient evaluated examined at bedside. Says she still having some abdominal pain. Surgery GI following. Continue antibiotics. Stool softener added today. Symptomatic treatment. Discussed with RN. 10/04 Patient eval and examined at bedside. Resting in bed saying abdominal pain was a little improved. No nausea vomiting diarrhea. Continue empiric abx. Gi consulted. Discussed wtih bedside RN. Vitals/I&O Vitals/I&O: Vital Signs Date Time Temp Pulse Resp B/P (MAP) Pulse Ox O2 Delivery O2 Flow Rate FiO2 10/06/21 10:23 98.0 96 18 149/69 (95) 93 Room Air 98.0 I & O 10/05/21 10/05/21 10/06/21 15:00 23:00 07:00 Intake Total 960 ml 240 ml 240 ml Output Total 300 ml 300 ml Balance 660 ml 240 ml -60 ml Physical Exam General: Oriented X3, Cooperative Heart: Regular rate Lungs: Clear Abdomen: Soft, Other (mild ttp lower abdomen ) Extremities: No clubbing, No cyanosis Skin: No rashes, No breakdown Assessment and Plan Assessmemt and Plan Problems Medical Problems: (1) Abdominal fluid collection Status: Acute (2) Abdominal pain Status: Acute Comment Review of Relevant I have reviewed the following items mariusz (where applicable) has been applied. Medications: Current Medications Medications (Trade) Dose Ordered Sig/Ella Route PRN Reason Start Time Stop Time Status Last Admin Dose Admin Amoxicillin/ Clavulanate Potassium (Augmentin 875/ 125mg) 1 tab BID PO 10/05/21 21:00 10/05/21 20:12 Justifications for Admission Other Justification EDSON CARROLL MD Oct 06, 2021 14:09
[2021-10-06 14:54] VITALS: BP 150/68
[2021-10-06 19:39] VITALS: BP 141/62
[2021-10-06] MEDS: AMITRIPTYLINE HCL 10 MG TABLET. PO SCH (20:25)
[2021-10-06 23:14] VITALS: BP 143/66
[2021-10-07] MEDS: IV NORMAL SALINE 1000ML BAG 1,000 ML IV SCH ×3 (01:49→21:24)
[2021-10-07] MEDS: ONDANSETRON PF 4 MG/2 ML VIAL. IVP PRN (01:50)
[2021-10-07 03:40] VITALS: BP 159/63
[2021-10-07 07:00] VITALS: BP 142/64
[2021-10-07] MEDS: PANTOPRAZOLE IV PUSH 40 MG VIAL. IVP SCH ×2 (07:49→17:30)
[2021-10-07] MEDS: LACTOBACILLUS RHAMNOSUS GG 1 CAPSULE. PO SCH (08:57)
[2021-10-07] MEDS: METOPROLOL TART IMMED RELEASE 50 MG TABLET. PO SCH ×2 (08:57→21:23)
[2021-10-07] MEDS: CHOLECALCIFEROL (VITAMIN D3) 1,000 UNIT TABLET PO SCH (08:58)
[2021-10-07] MEDS ORDERED: DICYCLOMINE HCL 10 MG CAPSULE PO PRN (09:45)
[2021-10-07] MEDS ORDERED: fentaNYL PF VIAL 100 MCG/2 ML VIAL IVP PRN (09:45)
[2021-10-07] MEDS: PROCHLORPERAZINE 10 MG/2 ML VIAL. IV PRN ×2 (09:46→17:38)
[2021-10-07 11:00] VITALS: BP 157/101
--- NOTE | 2021-10-07 11:35 | PDOC ---
Date of Service: DATE: 10/07/21 TIME: 11:32 Subjective: Subjective: Vomited last night. Hasn't tried anything to eat/drink today. Ongoing pain (starting in upper abdomen and going around both sides in a [place] to lower abdomen). Bloated but about the same as yesterday. Little gas, no stool. Objective: Objective: Received Zofran and Compazine. Vital Signs: Vital Signs Date Time Temp Pulse Resp B/P (MAP) Pulse Ox O2 Delivery O2 Flow Rate FiO2 10/07/21 08:51 Room Air 10/07/21 07:00 98.3 110 20 142/64 (90) 95 98.3 Imaging: KUB 10/07 pending PE: GEN: NAD LUNGS: CTAB HEART: RRR, ABD: some distention, muscular discomfort bilaterally, few quiet gurgles NEURO/PSYCH: A & O 3 A/P: Abdominal pain - suspected mild hemoperitoneum/muscle strain - surgery following ACD/JESÚS N/v - on IV PPI BID H/o diverticular disease s/p resection, h/o constipation Cholelithiasis -- Ongoing pain and vomiting. X-ray pending, recheck labs. Justicifation of Admission Dx: Justifications for Admission: Justification of Admission Dx: Yes IRASEMA MCCARTY Oct 07, 2021 11:35
--- NOTE | 2021-10-07 11:36 | RAD ---
XR ABDOMEN 1V History: Small bowel obstruction Comparison: 10/06/2021. CT abdomen and pelvis 10/03/2021 Technique: Portable supine radiograph of the abdomen Findings: Bowel gas pattern: Nonobstructive bowel gas pattern. No dilated small bowel loops. Ball minimal stool and gas within the colon. Free air: No supine evidence. Abnormal calcifications: Atherosclerotic calcifications. Bones: Degenerative changes the lumbar spine and hips. Other: None. Impression: 1. No acute abdominal findings. Nonobstructive bowel gas pattern. Electronically signed by: Jose Kelly MD (10/07/2021 11:33 AM) [id number]
--- NOTE | 2021-10-07 12:04 | PDOC ---
[employer] [facility] PROGRESS NOTE Date of Service DOS: DATE: 10/07/21 TIME: 12:02 Chief Complaint Chief Complaint acute on chronic abdominal pain s/p ileostomy and take down, last seen herei n 2018 GI consult Enteritis, Zosyn GERD, PPI given continue History of Present Illness History of Present Illness 10/07/2021 No acute events overnight. Patient continues to have vomiting episodes last night and this morning. Abdomen is distended. Continues to have diffuse abdominal pains. Patient may need NG tube despite the normal-appearing KUB.. Will defer this decision with surgery. KUB obtained showing nonobstructive bowel gas pattern. No gastric distention. Patient's chart, labs, images were reviewed and discussed with RN 10/06/2021 No acute events overnight. Patient seen examined bedside. AF and VSS. Patient had vomiting episode after morphine was given. She continues to have bilious vomiting. Abdominal x-ray shows nonobstructive bowel gas pattern. No signs of obvious obstruction. Abdomen is distended and firm. Diffuse tenderness. No bowel movement since Tuesday. Not passing flatus. Instructed patient to maintain upright position as much as possible and out of bed to chair 3 times daily. GI and surgery following. Appreciate their recommendations. Patient's chart, labs, images were reviewed and discussed with RN 10/05 Patient evaluated examined at bedside. Says she still having some abdominal pain. Surgery GI following. Continue antibiotics. Stool softener added today. Symptomatic treatment. Discussed with RN. 10/04 Patient eval and examined at bedside. Resting in bed saying abdominal pain was a little improved. No nausea vomiting diarrhea. Continue empiric abx. Gi consulted. Discussed wt bedside RN. Vitals/I&O Vitals/I&O: Vital Signs Date Time Temp Pulse Resp B/P (MAP) Pulse Ox O2 Delivery O2 Flow Rate FiO2 10/07/21 08:51 Room Air 10/07/21 07:00 98.3 110 20 142/64 (90) 95 98.3 I & O 10/06/21 10/06/21 10/07/21 15:00 23:00 07:00 Intake Total 0 ml 1035 ml 120 ml Output Total 800 ml 750 ml Balance -800 ml 1035 ml -630 ml Physical Exam General: Oriented X3, Cooperative Heart: Regular rate Lungs: Clear Abdomen: Soft, Other (mild ttp lower abdomen ) Extremities: No clubbing, No cyanosis Skin: No rashes, No breakdown Assessment and Plan Assessmemt and Plan Problems Medical Problems: (1) Abdominal fluid collection Status: Acute (2) Abdominal pain Status: Acute Comment Review of Relevant I have reviewed the following items mariusz (where applicable) has been applied. Medications: Current Medications Medications (Trade) Dose Ordered Sig/Ella Route PRN Reason Start Time Stop Time Status Last Admin Dose Admin Prochlorperazine Edisylate (Compazine) 10 mg PRN Q6HRS PRN IV NAUSEA/VOMITING 10/07/21 09:45 10/07/21 09:46 Justifications for Admission Other Justification EDSON CARROLL MD Oct 07, 2021 12:04
[2021-10-07 12:32] LABS: HEMATOCRIT 28.7 % (36.0-47.0); HEMOGLOBIN 9.7 g/dL (12.0-15.5); RED BLOOD COUNT 2.95 x10^6/uL (3.50-5.40); RED CELL DISTRIBUTION WIDTH 14.6 % (11.5-14.5); WHITE BLOOD COUNT 8.9 x10^3/uL (4.0-11.0)
[2021-10-07 13:03] LABS: ALBUMIN 2.7 g/dL (3.4-5.0); ALBUMIN/GLOBULIN RATIO 0.6 (1.0-1.7); CALCIUM 8.3 mg/dL (8.5-10.1); CREATININE 1.3 mg/dL (0.6-1.0); GFR 39.1; TOTAL BILIRUBIN 0.4 mg/dL (0.2-1.0); TOTAL PROTEIN 7.1 g/dL (6.4-8.2)
--- NOTE | 2021-10-07 13:44 | NUR ---
SW following. Discussed with RN, pt from home alone, room air, clear liquid diet. Possible NG placement today. Pt has not been able to keep anything down per RN. GI and Surgery following. Pt not medically ready for discharge. SW will continue to follow.
[2021-10-07 15:00] VITALS: BP 146/69
--- NOTE | 2021-10-07 18:58 | PDOC ---
SURGICAL PROGRESS NOTE DATE: 10/07/21 TIME: 18:56 Subjective Pt with c/o cont N/V, no flatus or stools Vital Signs Vital Signs Date Time Temp Pulse Resp B/P (MAP) Pulse Ox O2 Delivery O2 Flow Rate FiO2 10/07/21 15:00 98.1 104 20 146/69 (94) 96 Room Air 98.1 I&O Intake and Output 10/07/21 07:00 Intake Total 1155 ml Output Total 1550 ml Balance -395 ml Intake Oral 180 ml IV Total 975 ml Output Urine Total 1350 ml Emesis 100 ml Oral Regurgitation 100 ml General: Alert, Oriented X3, Cooperative, mild distress Abdomen: Soft, No tenderness Labs Laboratory Tests Test 10/07/21 12:20 White Blood Count 8.9 x10^3/uL (4.0-11.0) Red Blood Count 2.95 x10^6/uL (3.50-5.40) Hemoglobin 9.7 g/dL (12.0-15.5) Hematocrit 28.7 % (36.0-47.0) Mean Corpuscular Volume 97 fL (79-100) Mean Corpuscular Hemoglobin 33 pg (25-35) Mean Corpuscular Hemoglobin Concent 34 g/dL (31-37) Red Cell Distribution Width 14.6 % (11.5-14.5) Platelet Count 539 x10^3/uL (140-400) Sodium Level 143 mmol/L (136-145) Potassium Level 4.0 mmol/L (3.5-5.1) Chloride Level 107 mmol/L (98-107) Carbon Dioxide Level 22 mmol/L (21-32) Anion Gap 14 (6-14) Blood Urea Nitrogen 11 mg/dL (7-20) Creatinine 1.3 mg/dL (0.6-1.0) Estimated GFR (Cockcroft-Gault) 39.1 BUN/Creatinine Ratio 8 (6-20) Glucose Level 109 mg/dL (70-99) Calcium Level 8.3 mg/dL (8.5-10.1) Total Bilirubin 0.4 mg/dL (0.2-1.0) Aspartate Amino Transf (AST/SGOT) 28 U/L (15-37) Alanine Aminotransferase (ALT/SGPT) 27 U/L (14-59) Alkaline Phosphatase 49 U/L (46-116) Total Protein 7.1 g/dL (6.4-8.2) Albumin 2.7 g/dL (3.4-5.0) Albumin/Globulin Ratio 0.6 (1.0-1.7) Laboratory Tests Test 10/07/21 12:20 White Blood Count 8.9 x10^3/uL (4.0-11.0) Red Blood Count 2.95 x10^6/uL (3.50-5.40) Hemoglobin 9.7 g/dL (12.0-15.5) Hematocrit 28.7 % (36.0-47.0) Mean Corpuscular Volume 97 fL (79-100) Mean Corpuscular Hemoglobin 33 pg (25-35) Mean Corpuscular Hemoglobin Concent 34 g/dL (31-37) Red Cell Distribution Width 14.6 % (11.5-14.5) Platelet Count 539 x10^3/uL (140-400) Sodium Level 143 mmol/L (136-145) Potassium Level 4.0 mmol/L (3.5-5.1) Chloride Level 107 mmol/L (98-107) Carbon Dioxide Level 22 mmol/L (21-32) Anion Gap 14 (6-14) Blood Urea Nitrogen 11 mg/dL (7-20) Creatinine 1.3 mg/dL (0.6-1.0) Estimated GFR (Cockcroft-Gault) 39.1 BUN/Creatinine Ratio 8 (6-20) Glucose Level 109 mg/dL (70-99) Calcium Level 8.3 mg/dL (8.5-10.1) Total Bilirubin 0.4 mg/dL (0.2-1.0) Aspartate Amino Transf (AST/SGOT) 28 U/L (15-37) Alanine Aminotransferase (ALT/SGPT) 27 U/L (14-59) Alkaline Phosphatase 49 U/L (46-116) Total Protein 7.1 g/dL (6.4-8.2) Albumin 2.7 g/dL (3.4-5.0) Albumin/Globulin Ratio 0.6 (1.0-1.7) Problem List Problems Medical Problems: (1) Abdominal fluid collection Status: Acute (2) Abdominal pain Status: Acute Assessment/Plan Persistent N/V will place NGT and plan SBFT tomorrow. Justicifation of Admission Dx: Justifications for Admission: Justification of Admission Dx: Yes ZEYNEP GARCIA MD Oct 07, 2021 18:58
[2021-10-07 19:38] VITALS: BP 155/76
[2021-10-07] MEDS: AMITRIPTYLINE HCL 10 MG TABLET. PO SCH (21:23)
[2021-10-07 23:32] VITALS: BP 157/64
[2021-10-08 03:08] VITALS: BP 146/66
[2021-10-08 07:00] VITALS: BP 150/68
[2021-10-08] MEDS: PANTOPRAZOLE IV PUSH 40 MG VIAL. IVP SCH ×2 (08:01→15:50)
[2021-10-08] MEDS: METOPROLOL TART IMMED RELEASE 50 MG TABLET. PO SCH (08:04)
[2021-10-08] MEDS: LACTOBACILLUS RHAMNOSUS GG 1 CAPSULE. PO SCH (08:04)
[2021-10-08] MEDS: CHOLECALCIFEROL (VITAMIN D3) 1,000 UNIT TABLET PO SCH (08:05)
[2021-10-08] MEDS ORDERED: IOHEXOL 300 MG/ML 100ML VIAL. PO ONE (08:15)
--- NOTE | 2021-10-08 09:07 | PDOC ---
MINGO CERVANTES [employer]ER 10/08/21 0907: SURGICAL PROGRESS NOTE DATE: 10/08/21 TIME: 09:07 Subjective down for SBFT will fu on results Vital Signs Vital Signs Date Time Temp Pulse Resp B/P (MAP) Pulse Ox O2 Delivery O2 Flow Rate FiO2 10/08/21 07:00 98.2 102 18 150/68 (95) 94 Room Air 98.2 I&O Intake and Output 10/08/21 07:00 Output Total 1700 ml Balance -1700 ml Output Urine Total 1700 ml Labs Laboratory Tests Test 10/07/21 12:20 White Blood Count 8.9 x10^3/uL (4.0-11.0) Red Blood Count 2.95 x10^6/uL (3.50-5.40) Hemoglobin 9.7 g/dL (12.0-15.5) Hematocrit 28.7 % (36.0-47.0) Mean Corpuscular Volume 97 fL (79-100) Mean Corpuscular Hemoglobin 33 pg (25-35) Mean Corpuscular Hemoglobin Concent 34 g/dL (31-37) Red Cell Distribution Width 14.6 % (11.5-14.5) Platelet Count 539 x10^3/uL (140-400) Sodium Level 143 mmol/L (136-145) Potassium Level 4.0 mmol/L (3.5-5.1) Chloride Level 107 mmol/L (98-107) Carbon Dioxide Level 22 mmol/L (21-32) Anion Gap 14 (6-14) Blood Urea Nitrogen 11 mg/dL (7-20) Creatinine 1.3 mg/dL (0.6-1.0) Estimated GFR (Cockcroft-Gault) 39.1 BUN/Creatinine Ratio 8 (6-20) Glucose Level 109 mg/dL (70-99) Calcium Level 8.3 mg/dL (8.5-10.1) Total Bilirubin 0.4 mg/dL (0.2-1.0) Aspartate Amino Transf (AST/SGOT) 28 U/L (15-37) Alanine Aminotransferase (ALT/SGPT) 27 U/L (14-59) Alkaline Phosphatase 49 U/L (46-116) Total Protein 7.1 g/dL (6.4-8.2) Albumin 2.7 g/dL (3.4-5.0) Albumin/Globulin Ratio 0.6 (1.0-1.7) Laboratory Tests Test 10/07/21 12:20 White Blood Count 8.9 x10^3/uL (4.0-11.0) Red Blood Count 2.95 x10^6/uL (3.50-5.40) Hemoglobin 9.7 g/dL (12.0-15.5) Hematocrit 28.7 % (36.0-47.0) Mean Corpuscular Volume 97 fL (79-100) Mean Corpuscular Hemoglobin 33 pg (25-35) Mean Corpuscular Hemoglobin Concent 34 g/dL (31-37) Red Cell Distribution Width 14.6 % (11.5-14.5) Platelet Count 539 x10^3/uL (140-400) Sodium Level 143 mmol/L (136-145) Potassium Level 4.0 mmol/L (3.5-5.1) Chloride Level 107 mmol/L (98-107) Carbon Dioxide Level 22 mmol/L (21-32) Anion Gap 14 (6-14) Blood Urea Nitrogen 11 mg/dL (7-20) Creatinine 1.3 mg/dL (0.6-1.0) Estimated GFR (Cockcroft-Gault) 39.1 BUN/Creatinine Ratio 8 (6-20) Glucose Level 109 mg/dL (70-99) Calcium Level 8.3 mg/dL (8.5-10.1) Total Bilirubin 0.4 mg/dL (0.2-1.0) Aspartate Amino Transf (AST/SGOT) 28 U/L (15-37) Alanine Aminotransferase (ALT/SGPT) 27 U/L (14-59) Alkaline Phosphatase 49 U/L (46-116) Total Protein 7.1 g/dL (6.4-8.2) Albumin 2.7 g/dL (3.4-5.0) Albumin/Globulin Ratio 0.6 (1.0-1.7) Problem List Problems Medical Problems: (1) Abdominal fluid collection Status: Acute (2) Abdominal pain Status: Acute Justicifation of Admission Dx: Justifications for Admission: Justification of Admission Dx: Yes ZEYNEP GARCIA MD 10/08/21 1323: SURGICAL PROGRESS NOTE Assessment/Plan Pt seen and examined. Agree with Ms. Cervantes's note Pt with c/o increased work of breathing, no flatus or stools abd soft, distended SBFT with no obstruction but slow transit time will ask cards and pulm to evaluate. MINGO CERVANTES APRN Oct 08, 2021 09:07 ZEYNEP GARCIA MD Oct 08, 2021 13:23
--- NOTE | 2021-10-08 09:49 | PDOC ---
Date of Service: DATE: 10/08/21 TIME: 09:45 Subjective: Subjective: Kept some contrast down for SBS, otherwise feels about the same. Objective: Vital Signs: Vital Signs Date Time Temp Pulse Resp B/P (MAP) Pulse Ox O2 Delivery O2 Flow Rate FiO2 10/08/21 07:00 98.2 102 18 150/68 (95) 94 Room Air 98.2 Labs: Laboratory Tests Test 10/07/21 12:20 White Blood Count 8.9 x10^3/uL Red Blood Count 2.95 x10^6/uL Hemoglobin 9.7 g/dL Hematocrit 28.7 % Mean Corpuscular Volume 97 fL Mean Corpuscular Hemoglobin 33 pg Mean Corpuscular Hemoglobin Concent 34 g/dL Red Cell Distribution Width 14.6 % Platelet Count 539 x10^3/uL Sodium Level 143 mmol/L Potassium Level 4.0 mmol/L Chloride Level 107 mmol/L Carbon Dioxide Level 22 mmol/L Anion Gap 14 Blood Urea Nitrogen 11 mg/dL Creatinine 1.3 mg/dL Estimated GFR (Cockcroft-Gault) 39.1 BUN/Creatinine Ratio 8 Glucose Level 109 mg/dL Calcium Level 8.3 mg/dL Total Bilirubin 0.4 mg/dL Aspartate Amino Transf (AST/SGOT) 28 U/L Alanine Aminotransferase (ALT/SGPT) 27 U/L Alkaline Phosphatase 49 U/L Total Protein 7.1 g/dL Albumin 2.7 g/dL Albumin/Globulin Ratio 0.6 Imaging: SBS 10/08/21 pending PE: GEN: NAD - stasff present for x-rays - pt sitting on edge of bed LUNGS: room air HEART: borderline tachycardic per chart ABD: stable distention NEURO/PSYCH: A & O 3 A/P: Abdominal pain - suspected mild hemoperitoneum/muscle strain ACD/JESÚS - stable N/v - on IV PPI BID H/o diverticular disease s/p resection, h/o constipation Cholelithiasis COVID negative -- Await SBS results. Justicifation of Admission Dx: Justifications for Admission: Justification of Admission Dx: Yes IRASEMA MCCARTY Oct 08, 2021 09:49
[2021-10-08 11:00] VITALS: BP 152/69
--- NOTE | 2021-10-08 12:10 | PDOC ---
[facility] PROGRESS NOTE Date of Service DOS: DATE: 10/08/21 TIME: 12:08 Chief Complaint Chief Complaint acute on chronic abdominal pain s/p ileostomy and take down, last seen herei n 2018 GI consult Enteritis, Zosyn GERD, PPI given continue History of Present Illness History of Present Illness 3322 No acute events overnight. Patient seen examined bedside. AF and VSS. Patient has no vomiting episodes in the last 24 hours. Pending small bowel follow- through ordered by sterile surgery. Patient is currently refusing NG tube placement. Patient also complains some shortness of breath with nurse reporting audible wheezing. I do see wheezing I do not hear any obvious coarse crackles. Checks x-ray has been ordered. I have reduced her fluids to 50 cc/h of NS and ordered DuoNebs as needed. 10/07/2021 No acute events overnight. Patient continues to have vomiting episodes last night and this morning. Abdomen is distended. Continues to have diffuse abdominal pains. Patient may need NG tube despite the normal-appearing KUB.. Will defer this decision with surgery. KUB obtained showing nonobstructive bowel gas pattern. No gastric distention. Patient's chart, labs, images were reviewed and discussed with RN 10/06/2021 No acute events overnight. Patient seen examined bedside. AF and VSS. Patient had vomiting episode after morphine was given. She continues to have bilious vomiting. Abdominal x-ray shows nonobstructive bowel gas pattern. No signs of obvious obstruction. Abdomen is distended and firm. Diffuse tenderness. No bowel movement since Tuesday. Not passing flatus. Instructed patient to maintain upright position as much as possible and out of bed to chair 3 times daily. GI and surgery following. Appreciate their recommendations. Patient's chart, labs, images were reviewed and discussed with RN 10/05 Patient evaluated examined at bedside. Says she still having some abdominal pain. Surgery GI following. Continue antibiotics. Stool softener added today. Symptomatic treatment. Discussed with RN. 10/04 Patient eval and examined at bedside. Resting in bed saying abdominal pain was a little improved. No nausea vomiting diarrhea. Continue empiric abx. Gi consulted. Discussed wtih bedside RN. Vitals/I&O Vitals/I&O: Vital Signs Date Time Temp Pulse Resp B/P (MAP) Pulse Ox O2 Delivery O2 Flow Rate FiO2 10/08/21 11:00 98.2 102 18 152/69 (96) 94 Room Air 98.2 I & O 10/07/21 10/07/21 10/08/21 15:00 23:00 07:00 Output Total 200 ml 800 ml 700 ml Balance -200 ml -800 ml -700 ml Physical Exam General: Alert, Oriented X3, Cooperative, mild distress Heart: Regular rate Lungs: Clear Abdomen: Soft, Other (Diffuse tenderness and distention.) Extremities: No clubbing, No cyanosis Skin: No rashes, No breakdown Labs Labs: Laboratory Tests Test 10/07/21 12:20 White Blood Count 8.9 x10^3/uL (4.0-11.0) Red Blood Count 2.95 x10^6/uL (3.50-5.40) Hemoglobin 9.7 g/dL (12.0-15.5) Hematocrit 28.7 % (36.0-47.0) Mean Corpuscular Volume 97 fL (79-100) Mean Corpuscular Hemoglobin 33 pg (25-35) Mean Corpuscular Hemoglobin Concent 34 g/dL (31-37) Red Cell Distribution Width 14.6 % (11.5-14.5) Platelet Count 539 x10^3/uL (140-400) Sodium Level 143 mmol/L (136-145) Potassium Level 4.0 mmol/L (3.5-5.1) Chloride Level 107 mmol/L (98-107) Carbon Dioxide Level 22 mmol/L (21-32) Anion Gap 14 (6-14) Blood Urea Nitrogen 11 mg/dL (7-20) Creatinine 1.3 mg/dL (0.6-1.0) Estimated GFR (Cockcroft-Gault) 39.1 BUN/Creatinine Ratio 8 (6-20) Glucose Level 109 mg/dL (70-99) Calcium Level 8.3 mg/dL (8.5-10.1) Total Bilirubin 0.4 mg/dL (0.2-1.0) Aspartate Amino Transf (AST/SGOT) 28 U/L (15-37) Alanine Aminotransferase (ALT/SGPT) 27 U/L (14-59) Alkaline Phosphatase 49 U/L (46-116) Total Protein 7.1 g/dL (6.4-8.2) Albumin 2.7 g/dL (3.4-5.0) Albumin/Globulin Ratio 0.6 (1.0-1.7) Assessment and Plan Assessmemt and Plan Problems Medical Problems: (1) Abdominal fluid collection Status: Acute (2) Abdominal pain Status: Acute Comment Review of Relevant I have reviewed the following items mariusz (where applicable) has been applied. Justifications for Admission Other Justification EDSON CARROLL MD Oct 08, 2021 12:10
[2021-10-08] MEDS ORDERED: ALBUTEROL SULFATE 2.5 MG/3 ML NEBU. NEB PRN (12:15)
[2021-10-08] MEDS: PROCHLORPERAZINE 10 MG/2 ML VIAL. IV PRN ×2 (12:49→21:26)
--- NOTE | 2021-10-08 13:12 | RAD ---
DG SMALL BOWEL FOLLOW THROUGH Indication: Small bowel obstruction. Comparison: CT abdomen 10/03/2021. Radiographs 10/07/2021, 10/06/2021. Technique: Preliminary seo coordinator film of the abdomen was obtained. Then following ingestion of oral Omnip aque, serial images of the abdomen were obtained to assess progress of contrast throughout the small bowel. Total radiographs: 8. Findings: The seo coordinator image demonstrates a nonobstructive bowel gas pattern. Mild colonic stool burden. Left basi lar lung atelectasis/consolidation. Right effusion and basilar atelectasis. The small bowel is somewhat centralized consistent with mild ascites. There are a few mildly prominen t small bowel loops without definite abnormal distention. No strictures are seen. The small bowel fol d pattern is unremarkable. No luminal masses or filling defects identified. Transit time was prolonged at 160 minutes (normal <120 minutes). IMPRESSION: 1. Mild prolongation of the small bowel transit time without evidence of small bowel obstruction. Electronically signed by: Jose Kelly MD (10/08/2021 1:10 PM) [id number]
[2021-10-08 13:20] LABS: CALCIUM 8.8 mg/dL (8.5-10.1); CREATININE 1.3 mg/dL (0.6-1.0); GFR 39.1; MAGNESIUM 1.9 mg/dL (1.8-2.4); POTASSIUM 3.8 mmol/L (3.5-5.1)
[2021-10-08 15:00] VITALS: BP 155/76
--- NOTE | 2021-10-08 15:01 | RAD ---
XR CHEST 1V History: Shortness of breath Comparison: 10/03/2021, 04/23/2020 Technique: Portable AP radiograph of the chest. Findings: The lungs are adequately inflated. There are bilateral basilar opacities likely representing small ef fusions with adjacent consolidation or atelectasis. No pneumothorax. The cardiomediastinal silhouette and pulmonary vasculature are within normal limits. Mild degenerative changes of the spine and shoul ders. Calcification of the aortic arch. Impression: 1. Bilateral basilar opacities likely represent small effusions with adjacent consolidation or atele ctasis. Electronically signed by: Jose Kelly MD (10/08/2021 2:58 PM) [id number]
[2021-10-08] MEDS: ONDANSETRON PF 4 MG/2 ML VIAL. IVP PRN (15:49)
[2021-10-08] MEDS ORDERED: FUROSEMIDE 20 MG/2 ML VIAL. IVP ONE (16:15)
[2021-10-08] MEDS: IV NORMAL SALINE 1000ML BAG 1,000 ML IV SCH (17:56)
[2021-10-08] MEDS: METOPROLOL IV PUSH 5 MG/5 ML VIAL. IVP SCH (17:57)
[2021-10-08 19:00] VITALS: BP 159/74
[2021-10-08] MEDS: AMITRIPTYLINE HCL 10 MG TABLET. PO SCH (21:25)
[2021-10-08 23:00] VITALS: BP 164/77
[2021-10-09 03:00] VITALS: BP 173/65
[2021-10-09] MEDS: IV NORMAL SALINE 1000ML BAG 1,000 ML IV SCH (05:52)
[2021-10-09] MEDS: METOPROLOL IV PUSH 5 MG/5 ML VIAL. IVP SCH ×4 (06:00→17:45)
[2021-10-09 07:00] VITALS: BP 140/70
[2021-10-09] MEDS: CHOLECALCIFEROL (VITAMIN D3) 1,000 UNIT TABLET PO SCH (09:22)
[2021-10-09] MEDS: LACTOBACILLUS RHAMNOSUS GG 1 CAPSULE. PO SCH (09:22)
--- NOTE | 2021-10-09 09:41 | PDOC ---
SURGICAL PROGRESS NOTE DATE: 10/09/21 TIME: 09:39 Subjective Pt with c/o bilious emesis and nausea, now passing stools, breathing better Vital Signs Vital Signs Date Time Temp Pulse Resp B/P (MAP) Pulse Ox O2 Delivery O2 Flow Rate FiO2 10/09/21 09:22 114 140/70 10/09/21 08:00 Room Air 10/09/21 07:00 97.9 20 94 97.9 I&O Intake and Output 10/09/21 07:00 Intake Total 1120 ml Output Total 250 ml Balance 870 ml Intake Oral 170 ml IV Total 950 ml Output Urine Total 250 ml General: Alert, Oriented X3, Cooperative, mild distress Abdomen: Soft, No tenderness Labs Laboratory Tests Test 10/07/21 12:20 10/08/21 12:59 White Blood Count 8.9 x10^3/uL (4.0-11.0) Red Blood Count 2.95 x10^6/uL (3.50-5.40) Hemoglobin 9.7 g/dL (12.0-15.5) Hematocrit 28.7 % (36.0-47.0) Mean Corpuscular Volume 97 fL (79-100) Mean Corpuscular Hemoglobin 33 pg (25-35) Mean Corpuscular Hemoglobin Concent 34 g/dL (31-37) Red Cell Distribution Width 14.6 % (11.5-14.5) Platelet Count 539 x10^3/uL (140-400) Sodium Level 143 mmol/L (136-145) 144 mmol/L (136-145) Potassium Level 4.0 mmol/L (3.5-5.1) 3.8 mmol/L (3.5-5.1) Chloride Level 107 mmol/L (98-107) 106 mmol/L (98-107) Carbon Dioxide Level 22 mmol/L (21-32) 20 mmol/L (21-32) Anion Gap 14 (6-14) 18 (6-14) Blood Urea Nitrogen 11 mg/dL (7-20) 12 mg/dL (7-20) Creatinine 1.3 mg/dL (0.6-1.0) 1.3 mg/dL (0.6-1.0) Estimated GFR (Cockcroft-Gault) 39.1 39.1 BUN/Creatinine Ratio 8 (6-20) Glucose Level 109 mg/dL (70-99) 108 mg/dL (70-99) Calcium Level 8.3 mg/dL (8.5-10.1) 8.8 mg/dL (8.5-10.1) Total Bilirubin 0.4 mg/dL (0.2-1.0) Aspartate Amino Transf (AST/SGOT) 28 U/L (15-37) Alanine Aminotransferase (ALT/SGPT) 27 U/L (14-59) Alkaline Phosphatase 49 U/L (46-116) Total Protein 7.1 g/dL (6.4-8.2) Albumin 2.7 g/dL (3.4-5.0) Albumin/Globulin Ratio 0.6 (1.0-1.7) Magnesium Level 1.9 mg/dL (1.8-2.4) JR-[id number]-Type Natriuretic Peptide 1099 pg/mL (0-449) Laboratory Tests Test 10/08/21 12:59 Sodium Level 144 mmol/L (136-145) Potassium Level 3.8 mmol/L (3.5-5.1) Chloride Level 106 mmol/L (98-107) Carbon Dioxide Level 20 mmol/L (21-32) Anion Gap 18 (6-14) Blood Urea Nitrogen 12 mg/dL (7-20) Creatinine 1.3 mg/dL (0.6-1.0) Estimated GFR (Cockcroft-Gault) 39.1 Glucose Level 108 mg/dL (70-99) Calcium Level 8.8 mg/dL (8.5-10.1) Magnesium Level 1.9 mg/dL (1.8-2.4) XV-Cqa-U-Type Natriuretic Peptide 1099 pg/mL (0-449) I have reviewed the following SBFT slow, but no obstruction Problem List Problems Medical Problems: (1) Abdominal fluid collection Status: Acute (2) Abdominal pain Status: Acute Assessment/Plan favor gastroenteritis cont per pulm, cards and GI no surgical plans currently, hopefully will improve with supportive care. Justicifation of Admission Dx: Justifications for Admission: Justification of Admission Dx: Yes ZEYNEP GARCIA MD Oct 09, 2021 09:41
--- NOTE | 2021-10-09 10:12 | PDOC2 ---
CARDIAC CONSULT DATE OF CONSULT Date of Consult DATE: 10/09/21 TIME: 10:02 REASON FOR CONSULT Reason for Consult: Tachycardia REFERRING PHYSICIAN Referring Physician: Magali SOURCE Source: Chart review, Patient HISTORY OF PRESENT ILLNESS HISTORY OF PRESENT ILLNESS This is an 81 yo female admitted for complains of nausea vomiting and abdominal pain. Reports no SOA or chest pain and no palpitations. She has been suspected with gastroenteritis. At the present time she still nauseated and actually vomited brownish/green vomit today. No chest pain but has some SOA. Reports that her leg swelling were just recent. No hx of CAD or VTE. she takes metoprolol at home. PAST MEDICAL HISTORY Cardiovascular: HTN, Hyperlipidemia, Valve insufficiency, Other (PSVT) GI: Diverticulosis, GERD Psych: Anxiety Musculoskeletal: low back pain, Osteoarthritis ENT: Other (apistaxis) Renal/: Chronic renal insuff Endocrine: Osteopenia PAST SURGICAL HISTORY Past Surgical History: Appendectomy, Hysterectomy (partial), Colon Resection, O ther (colostomy and takedown) FAMILY HISTORY Family History noncontributory to CV SOCIAL HISTORY Smoke: Quit ALCOHOL: none CURRENT MEDICATIONS CURRENT MEDICATIONS Current Medications Medications (Trade) Dose Ordered Sig/Ella Route PRN Reason Start Time Stop Time Status Last Admin Dose Admin Furosemide (Lasix) 20 mg 1X ONCE IVP 10/08/21 16:15 10/08/21 16:16 DC 10/08/21 15:57 Metoprolol Tartrate (Lopressor Vial) 5 mg Q6HRS IVP 10/08/21 18:00 10/08/21 17:57 ALLERGIES ALLERGIES: Coded Allergies: adhesive (Verified Allergy, Intermediate, Rash, 10/03/21) ROS Review of System 14 point ROS evaluated with pertinent positives noted per HPI PHYSICAL EXAM General: Alert, Oriented X3, Cooperative, No acute distress HEENT: Atraumatic, Mucous membr. moist/pink Lungs: Other (basilar crackles) Heart: Regular rate (SR/ST), Normal S1, Normal S2, No murmurs Abdomen: Soft Extremities: No cyanosis, Other (2+ bilateral Le pitting edema) Skin: No breakdown, No significant lesion Neuro: Normal speech, Sensation intact Psych/Mental Status: Mental status NL, Mood NL MUSCULOSKELETAL: Osteoarthritic changes both hands VITALS/I&O VITALS/I&O: Vital Signs Date Time Temp Pulse Resp B/P (MAP) Pulse Ox O2 Delivery O2 Flow Rate FiO2 10/09/21 09:22 114 140/70 10/09/21 08:00 Room Air 10/09/21 07:00 97.9 20 94 97.9 I & O 10/08/21 10/08/21 10/09/21 15:00 23:00 07:00 Intake Total 950 ml 50 ml 120 ml Output Total 250 ml Balance 950 ml -200 ml 120 ml LABS Lab: Laboratory Tests Test 10/08/21 12:59 Sodium Level 144 mmol/L (136-145) Potassium Level 3.8 mmol/L (3.5-5.1) Chloride Level 106 mmol/L (98-107) Carbon Dioxide Level 20 mmol/L (21-32) L Anion Gap 18 (6-14) H Blood Urea Nitrogen 12 mg/dL (7-20) Creatinine 1.3 mg/dL (0.6-1.0) H Estimated GFR (Cockcroft-Gault) 39.1 Glucose Level 108 mg/dL (70-99) H Calcium Level 8.8 mg/dL (8.5-10.1) Magnesium Level 1.9 mg/dL (1.8-2.4) [id number]-Fjc-F-Type Natriuretic Peptide 1099 pg/mL (0-449) H Laboratory Tests 10/08/21 12:59 ASSESSMENT/PLAN ASSESSMENT/PLAN 1. Abdominal pain: remains nauseated 2. Reactive sinus tachycardia 3. Mild acute diastolic CHF: appears compensated 4. HTN: better controlled Recommendations 1. Remains NPO, continue home metoprolol via IV 2. Obtain EKG. BMP and CBC 3. Hold off further lasix as she continues to have nausea and vomiting episode 4. Strict I & O KY RUIZ APRN Oct 09, 2021 10:12
--- NOTE | 2021-10-09 10:33 | NUR ---
SW following. Discussed with RN, pt from home alone, room air, clear liquid diet, COVID-19 negative. Pt refusing NG, not wanting to eat. Pt not medically ready for discharge. SW will continue to follow.
[2021-10-09] MEDS: PANTOPRAZOLE IV PUSH 40 MG VIAL. IVP SCH ×2 (10:44→17:45)
[2021-10-09 11:00] VITALS: BP 137/68
--- NOTE | 2021-10-09 11:06 | CONS ---
DATE OF CONSULTATION: 10/09/2021 PULMONARY CONSULTATION REASON FOR CONSULTATION: Hypoxia, dyspnea. ATTENDING PHYSICIAN: Marissa Coy MD HISTORY OF PRESENT ILLNESS: The patient is an 81-year-old female who has a history of tobacco use since age 13. She quit 4 years ago. She is not on home oxygen. She has been struggling with abdominal pain. She came to the hospital with nausea and vomiting as well as now having some loose stools. She was noted to have some mild dyspnea yesterday. She has been on room air. Saturations have been 94-97%. I had reviewed the patient's chest x-ray done yesterday. There were small basilar pleural effusions with associated atelectasis. I gave her one dose of Lasix. She is feeling much better today. Denies any chest pain or shortness of breath. She is still having nausea, vomiting as well as diarrhea now. PAST MEDICAL HISTORY: Significant for history of TIA, hypertension, osteoarthritis, peripheral vascular disease, history of tobaccoism, likely underlying COPD. PAST SURGICAL HISTORY: Hysterectomy. ALLERGIES: ADHESIVE TAPE. MEDICATIONS: Reviewed as listed in the MRAD. REVIEW OF SYSTEMS: Twelve-point review of system obtained. Pertinent positives discussed in my present illness, otherwise noncontributory. All systems that were negative were reviewed as well. FAMILY HISTORY: Noncontributory to lungs. SOCIAL HISTORY: Smoker since age 13. Quit 4 years ago. PHYSICAL EXAMINATION: VITAL SIGNS: Reviewed. She is currently on room air. Blood pressure stable. Unable to do full exam as she was sitting on a commode. She does have lower extremity edema. LABORATORY DATA: Reviewed. White cell count 8.9, hemoglobin 9.7, platelets are 539. Her COVID was negative. Influenza negative. BUN 12, creatinine 1.3. IMPRESSION: 1. Mild dyspnea. This is likely related to development of bibasilar pleural effusion. She has been receiving IV fluids. She has low albumin and likely low oncotic pressure contributing to pleural effusions. She has responded to Lasix. 2. Underlying tobaccoism for 40+ years. She likely has underlying COPD. She currently does not have any exacerbation of chronic obstructive pulmonary disease. 3. Gastroenteritis to be managed by GI. RECOMMENDATIONS: 1. Pulmonary status stable. At this point, monitor for any future increasing dyspnea. 2. Continue p.r.n. Lasix. 3. P.r.n. oxygen. 4. Follow GI recommendations. 5. We will be available for any further recommendations. 6. Would recommend PFTs as an outpatient. 7. Continue present p.r.n. bronchodilators. 8. We will be available for any further recommendations. We will see her p.r.n. ELY DR: Sallie TID: [id number]
[2021-10-09 11:19] LABS: BASO % 0 % (0-3); EOS % 0 % (0-3); HEMATOCRIT 29.7 % (36.0-47.0); HEMOGLOBIN 9.5 g/dL (12.0-15.5); LYMPH # 0.9 x10^3/uL (1.0-4.8); LYMPH % 6 % (24-48); MEAN CORPUSCULAR HEMOGLOBIN 32 pg (25-35); MEAN CORPUSCULAR HGB CONC 32 g/dL (31-37); MEAN CORPUSCULAR VOLUME 99 fL (79-100); MONO # 1.3 x10^3/uL (0.0-1.1); MONO % 8 % (0-9); NEUT # 13.3 x10^3/uL (1.8-7.7); NEUT % 86 % (31-73); PLATELET COUNT 670 x10^3/uL (140-400); RED BLOOD COUNT 3.01 x10^6/uL (3.50-5.40); RED CELL DISTRIBUTION WIDTH 14.3 % (11.5-14.5); WHITE BLOOD COUNT 15.5 x10^3/uL (4.0-11.0)
[2021-10-09 11:45] LABS: CALCIUM 9.4 mg/dL (8.5-10.1); CREATININE 1.7 mg/dL (0.6-1.0); GFR 28.7; POTASSIUM 3.6 mmol/L (3.5-5.1)
--- NOTE | 2021-10-09 11:51 | PDOC ---
Date of Service: DATE: 10/09/21 TIME: 11:45 Subjective: Subjective: On commode - reports lots of stool. Short of breath, still vomiting, can't eat/drink. Objective: Vital Signs: Vital Signs Date Time Temp Pulse Resp B/P (MAP) Pulse Ox O2 Delivery O2 Flow Rate FiO2 10/09/21 09:22 114 140/70 10/09/21 08:00 Room Air 10/09/21 07:00 97.9 20 94 97.9 Labs: Laboratory Tests Test 10/08/21 12:59 10/09/21 11:00 Sodium Level 144 mmol/L Potassium Level 3.8 mmol/L Chloride Level 106 mmol/L Carbon Dioxide Level 20 mmol/L Anion Gap 18 Blood Urea Nitrogen 12 mg/dL Creatinine 1.3 mg/dL Estimated GFR (Cockcroft-Gault) 39.1 Glucose Level 108 mg/dL Calcium Level 8.8 mg/dL Magnesium Level 1.9 mg/dL HQ-[id number]-Type Natriuretic Peptide 1099 pg/mL White Blood Count 15.5 x10^3/uL Red Blood Count 3.01 x10^6/uL Hemoglobin 9.5 g/dL Hematocrit 29.7 % Mean Corpuscular Volume 99 fL Mean Corpuscular Hemoglobin 32 pg Mean Corpuscular Hemoglobin Concent 32 g/dL Red Cell Distribution Width 14.3 % Platelet Count 670 x10^3/uL Neutrophils (%) (Auto) 86 % Lymphocytes (%) (Auto) 6 % Monocytes (%) (Auto) 8 % Eosinophils (%) (Auto) 0 % Basophils (%) (Auto) 0 % Neutrophils # (Auto) 13.3 x10^3/uL Lymphocytes # (Auto) 0.9 x10^3/uL Monocytes # (Auto) 1.3 x10^3/uL Eosinophils # (Auto) 0.0 x10^3/uL Basophils # (Auto) 0.0 x10^3/uL Platelet Estimate Pending Imaging: SBS IMPRESSION: 1. Mild prolongation of the small bowel transit time without evidence of small bowel obstruction. CXR Impression: 1. Bilateral basilar opacities likely represent small effusions with adjacent consolidation or atelectasis. PE: GEN: on commode - seen from doorway LUNGS: room air HEART: tachycardic ABD: stable in appearance NEURO/PSYCH: A & O 3 A/P: N/v - SBS as above, on IV PPI BID ACD/JESÚS - stable H/o diverticular disease s/p resection, h/o constipation - stooling Cholelithiasis COVID negative CHF, HTN - cardio/pulm following -- Now stooling but ongoing n/v - ?consider head imaging? Justicifation of Admission Dx: Justifications for Admission: Justification of Admission Dx: Yes IRASEMA MCCARTY Oct 09, 2021 11:51
[2021-10-09 12:37] LABS: % BASOS 1 % (0-3); % LYMPHS 4 % (24-48); % MONOS 3 % (0-10); % SEGS 92 % (35-66); PLT ESTIMATE INCREASED (ADEQUATE)
--- NOTE | 2021-10-09 13:50 | PDOC ---
[facility] [facility] PROGRESS NOTE Date of Service DOS: DATE: 10/09/21 TIME: 13:44 Chief Complaint Chief Complaint Bilateral atelectasis, possible consolidations concerning for hospital-acquired pneumonia acute on chronic abdominal pain s/p ileostomy and take down, last seen here in 2019 GI consult Enteritis, Zosyn GERD, PPI given continue Pending pro calcitonin We will start empiric IV antibiotics Cardiology consulted for as needed Lasix for possible CHF exacerbation Pulmonology consulted for respiratory distress History of Present Illness History of Present Illness 10/09/2021 No acute events tonight. Patient seen examined bedside. T-max of 99.3. Still having vomiting but seen on commode this morning with lots of loose stool. Surgery has recommended cardiology and pulmonary to evaluate patient for shortness of breath. Chest x-ray yesterday showing bilateral basilar opacities. Will initiate IV antibiotic for pneumonia. Patient's chart, labs, images were reviewed and discussed with RN 10/08/21 No acute events overnight. Patient seen examined bedside. AF and VSS. Patient has no vomiting episodes in the last 24 hours. Pending small bowel follow-through ordered by sterile surgery. Patient is currently refusing NG tube placement. Patient also complains some shortness of breath with nurse reporting audible wheezing. I do see wheezing I do not hear any obvious coarse crackles. Checks x-ray has been ordered. I have reduced her fluids to 50 cc/h of NS and ordered DuoNebs as needed. 10/07/2021 No acute events overnight. Patient continues to have vomiting episodes last night and this morning. Abdomen is distended. Continues to have diffuse abdominal pains. Patient may need NG tube despite the normal-appearing KUB.. Will defer this decision with surgery. KUB obtained showing nonobstructive bowel gas pattern. No gastric distention. Patient's chart, labs, images were reviewed and discussed with RN 10/06/2021 No acute events overnight. Patient seen examined bedside. AF and VSS. Patient had vomiting episode after morphine was given. She continues to have bilious vomiting. Abdominal x-ray shows nonobstructive bowel gas pattern. No signs of obvious obstruction. Abdomen is distended and firm. Diffuse tenderness. No bowel movement since Tuesday. Not passing flatus. Instructed patient to maintain upright position as much as possible and out of bed to chair 3 times daily. GI and surgery following. Appreciate their recommendations. Patient's chart, labs, images were reviewed and discussed with RN 10/05 Patient evaluated examined at bedside. Says she still having some abdominal pain. Surgery GI following. Continue antibiotics. Stool softener added today. Symptomatic treatment. Discussed with RN. 10/04 Patient eval and examined at bedside. Resting in bed saying abdominal pain was a little improved. No nausea vomiting diarrhea. Continue empiric abx. Gi consulted. Discussed wtih bedside RN. Vitals/I&O Vitals/I&O: Vital Signs Date Time Temp Pulse Resp B/P (MAP) Pulse Ox O2 Delivery O2 Flow Rate FiO2 10/09/21 11:54 114 140/70 10/09/21 11:00 98.1 19 97 Room Air 98.1 I & O0 10/08/21 10/08/21 10/09/21 15:00 23:00 07:00 Intake Total 950 ml 50 ml 120 ml Output Total 250 ml Balance 950 ml -200 ml 120 ml Physical Exam General: Alert, Oriented X3, Cooperative, No acute distress Heart: Regular rate (SR/ST), Normal S1, Normal S2, No murmurs Lungs: Clear Abdomen: Soft Extremities: No cyanosis, Other (2+ bilateral Le pitting edema) Skin: No breakdown, No significant lesion Labs Labs: Laboratory Tests Test 10/09/21 11:00 White Blood Count 15.5 x10^3/uL (4.0-11.0) Red Blood Count 3.01 x10^6/uL (3.50-5.40) Hemoglobin 9.5 g/dL (12.0-15.5) Hematocrit 29.7 % (36.0-47.0) Mean Corpuscular Volume 99 fL (79-100) Mean Corpuscular Hemoglobin 32 pg (25-35) Mean Corpuscular Hemoglobin Concent 32 g/dL (31-37) Red Cell Distribution Width 14.3 % (11.5-14.5) Platelet Count 670 x10^3/uL (140-400) Neutrophils (%) (Auto) 86 % (31-73) Lymphocytes (%) (Auto) 6 % (24-48) Monocytes (%) (Auto) 8 % (0-9) Eosinophils (%) (Auto) 0 % (0-3) Basophils (%) (Auto) 0 % (0-3) Neutrophils # (Auto) 13.3 x10^3/uL (1.8-7.7) Lymphocytes # (Auto) 0.9 x10^3/uL (1.0-4.8) Monocytes # (Auto) 1.3 x10^3/uL (0.0-1.1) Eosinophils # (Auto) 0.0 x10^3/uL (0.0-0.7) Basophils # (Auto) 0.0 x10^3/uL (0.0-0.2) Segmented Neutrophils % 92 % (35-66) Lymphocytes % 4 % (24-48) Monocytes % 3 % (0-10) Basophils % 1 % (0-3) Platelet Estimate Increased (ADEQUATE) Sodium Level 146 mmol/L (136-145) Potassium Level 3.6 mmol/L (3.5-5.1) Chloride Level 105 mmol/L (98-107) Carbon Dioxide Level 23 mmol/L (21-32) Anion Gap 18 (6-14) Blood Urea Nitrogen 21 mg/dL (7-20) Creatinine 1.7 mg/dL (0.6-1.0) Estimated GFR (Cockcroft-Gault) 28.7 Glucose Level 133 mg/dL (70-99) Calcium Level 9.4 mg/dL (8.5-10.1) Assessment and Plan Assessmemt and Plan Problems Medical Problems: (1) Abdominal fluid collection Status: Acute (2) Abdominal pain Status: Acute Comment Review of Relevant I have reviewed the following items mariusz (where applicable) has been applied. Medications: Current Medications Medications (Trade) Dose Ordered Sig/Ella Route PRN Reason Start Time Stop Time Status Last Admin Dose Admin Furosemide (Lasix) 20 mg 1X ONCE IVP 10/08/21 16:15 10/08/21 16:16 DC 10/08/21 15:57 Metoprolol Tartrate (Lopressor Vial) 5 mg Q6HRS IVP 10/08/21 18:00 10/09/21 11:54 Justifications for Admission Other Justification EDSON CARROLL MD Oct 09, 2021 13:50
[2021-10-09 15:00] VITALS: BP 168/64
[2021-10-09] MEDS: CEFEPIME HCL IV Push 1 GM VIAL. IVP SCH (15:00)
[2021-10-09] MEDS: AZITHROMYCIN 500 MG in IV NORMAL SALINE 250ML 250 ML IV SCH (15:44)
[2021-10-09 19:00] VITALS: BP 131/68
[2021-10-09] MEDS: AMITRIPTYLINE HCL 10 MG TABLET. PO SCH (21:38)
[2021-10-09] MEDS: PROCHLORPERAZINE 10 MG/2 ML VIAL. IV PRN (22:47)
[2021-10-09 23:15] VITALS: BP 137/84
[2021-10-10] MEDS: IV NORMAL SALINE 1000ML BAG 1,000 ML IV SCH ×2 (01:52→21:52)
[2021-10-10 03:00] VITALS: BP 120/69
[2021-10-10] MEDS: METOPROLOL IV PUSH 5 MG/5 ML VIAL. IVP SCH ×5 (05:55→23:59)
[2021-10-10 07:00] VITALS: BP 164/71
[2021-10-10] MEDS: PANTOPRAZOLE IV PUSH 40 MG VIAL. IVP SCH ×2 (07:58→17:29)
[2021-10-10] MEDS: CHOLECALCIFEROL (VITAMIN D3) 1,000 UNIT TABLET PO SCH (07:59)
[2021-10-10] MEDS: LACTOBACILLUS RHAMNOSUS GG 1 CAPSULE. PO SCH (07:59)
--- NOTE | 2021-10-10 08:41 | PDOC ---
SURGICAL PROGRESS NOTE DATE: 10/10/21 TIME: 08:41 Subjective stooling so far no emesis after teat this morning Vital Signs Vital Signs Date Time Temp Pulse Resp B/P (MAP) Pulse Ox O2 Delivery O2 Flow Rate FiO2 10/10/21 08:06 Room Air 10/10/21 08:00 113 164/71 10/10/21 07:00 98.2 18 95 98.2 I&O Intake and Output 10/10/21 07:00 Intake Total 350 ml Balance 350 ml Intake Oral 350 ml # Voids 7 # Bowel Movements 9 General: Alert, Oriented X3, Cooperative Abdomen: Soft, Other (ttp epigastric) Labs Laboratory Tests Test 10/08/21 12:59 10/09/21 11:00 Sodium Level 144 mmol/L (136-145) 146 mmol/L (136-145) Potassium Level 3.8 mmol/L (3.5-5.1) 3.6 mmol/L (3.5-5.1) Chloride Level 106 mmol/L (98-107) 105 mmol/L (98-107) Carbon Dioxide Level 20 mmol/L (21-32) 23 mmol/L (21-32) Anion Gap 18 (6-14) 18 (6-14) Blood Urea Nitrogen 12 mg/dL (7-20) 21 mg/dL (7-20) Creatinine 1.3 mg/dL (0.6-1.0) 1.7 mg/dL (0.6-1.0) Estimated GFR (Cockcroft-Gault) 39.1 28.7 Glucose Level 108 mg/dL (70-99) 133 mg/dL (70-99) Calcium Level 8.8 mg/dL (8.5-10.1) 9.4 mg/dL (8.5-10.1) Magnesium Level 1.9 mg/dL (1.8-2.4) TG-Urk-[id number]-Type Natriuretic Peptide 1099 pg/mL (0-449) White Blood Count 15.5 x10^3/uL (4.0-11.0) Red Blood Count 3.01 x10^6/uL (3.50-5.40) Hemoglobin 9.5 g/dL (12.0-15.5) Hematocrit 29.7 % (36.0-47.0) Mean Corpuscular Volume 99 fL (79-100) Mean Corpuscular Hemoglobin 32 pg (25-35) Mean Corpuscular Hemoglobin Concent 32 g/dL (31-37) Red Cell Distribution Width 14.3 % (11.5-14.5) Platelet Count 670 x10^3/uL (140-400) Neutrophils (%) (Auto) 86 % (31-73) Lymphocytes (%) (Auto) 6 % (24-48) Monocytes (%) (Auto) 8 % (0-9) Eosinophils (%) (Auto) 0 % (0-3) Basophils (%) (Auto) 0 % (0-3) Neutrophils # (Auto) 13.3 x10^3/uL (1.8-7.7) Lymphocytes # (Auto) 0.9 x10^3/uL (1.0-4.8) Monocytes # (Auto) 1.3 x10^3/uL (0.0-1.1) Eosinophils # (Auto) 0.0 x10^3/uL (0.0-0.7) Basophils # (Auto) 0.0 x10^3/uL (0.0-0.2) Segmented Neutrophils % 92 % (35-66) Lymphocytes % 4 % (24-48) Monocytes % 3 % (0-10) Basophils % 1 % (0-3) Platelet Estimate Increased (ADEQUATE) Procalcitonin 0.12 ng/mL (0.00-0.10) Laboratory Tests Test 10/09/21 11:00 White Blood Count 15.5 x10^3/uL (4.0-11.0) Red Blood Count 3.01 x10^6/uL (3.50-5.40) Hemoglobin 9.5 g/dL (12.0-15.5) Hematocrit 29.7 % (36.0-47.0) Mean Corpuscular Volume 99 fL (79-100) Mean Corpuscular Hemoglobin 32 pg (25-35) Mean Corpuscular Hemoglobin Concent 32 g/dL (31-37) Red Cell Distribution Width 14.3 % (11.5-14.5) Platelet Count 670 x10^3/uL (140-400) Neutrophils (%) (Auto) 86 % (31-73) Lymphocytes (%) (Auto) 6 % (24-48) Monocytes (%) (Auto) 8 % (0-9) Eosinophils (%) (Auto) 0 % (0-3) Basophils (%) (Auto) 0 % (0-3) Neutrophils # (Auto) 13.3 x10^3/uL (1.8-7.7) Lymphocytes # (Auto) 0.9 x10^3/uL (1.0-4.8) Monocytes # (Auto) 1.3 x10^3/uL (0.0-1.1) Eosinophils # (Auto) 0.0 x10^3/uL (0.0-0.7) Basophils # (Auto) 0.0 x10^3/uL (0.0-0.2) Segmented Neutrophils % 92 % (35-66) Lymphocytes % 4 % (24-48) Monocytes % 3 % (0-10) Basophils % 1 % (0-3) Platelet Estimate Increased (ADEQUATE) Sodium Level 146 mmol/L (136-145) Potassium Level 3.6 mmol/L (3.5-5.1) Chloride Level 105 mmol/L (98-107) Carbon Dioxide Level 23 mmol/L (21-32) Anion Gap 18 (6-14) Blood Urea Nitrogen 21 mg/dL (7-20) Creatinine 1.7 mg/dL (0.6-1.0) Estimated GFR (Cockcroft-Gault) 28.7 Glucose Level 133 mg/dL (70-99) Calcium Level 9.4 mg/dL (8.5-10.1) Procalcitonin 0.12 ng/mL (0.00-0.10) Problem List Problems Medical Problems: (1) Abdominal fluid collection Status: Acute (2) Abdominal pain Status: Acute Assessment/Plan supportive care Justicifation of Admission Dx: Justifications for Admission: Justification of Admission Dx: Yes MINGO [employer] Oct 10, 2021 08:41
--- NOTE | 2021-10-10 09:41 | PDOC ---
PROGRESS NOTES Date of Service: DATE: 10/10/21 TIME: 09:40 Subjective Subjective Abdominal pain improved, has mild nausea but tolerated cup of tea this morning Objective Objective Vital Signs Date Time Temp Pulse Resp B/P (MAP) Pulse Ox O2 Delivery O2 Flow Rate FiO2 10/10/21 08:06 Room Air 10/10/21 08:00 113 164/71 10/10/21 07:00 98.2 18 95 98.2 Intake and Output 10/10/21 07:00 Intake Total 350 ml Balance 350 ml Intake Oral 350 ml # Voids 7 # Bowel Movements 9 Physical Exam Abdomen: Soft, Other (ttp epigastric) Heart: Regular rate (SR/ST), Normal S1, Normal S2, No murmurs Extremities: No cyanosis, Other (2+ bilateral Le pitting edema) General: Alert, Oriented X3, Cooperative HEENT: Atraumatic, Mucous membr. moist/pink Lungs: Other (basilar crackles) MUSCULOSKELETAL: Osteoarthritic changes both hands Neuro: Normal speech, Sensation intact Psych/Mental Status: Mental status NL, Mood NL Skin: No breakdown, No significant lesion Assessment Assessment 1. Abdominal pain: remains nauseated. s/p ileostomy and takedown in the past. Gastroenterology team following. 2. Sinus tachycardia, reactive. Telemetry did not show any other arrhythmias. 3. Mild acute diastolic CHF: appears better compensated 4. HTN: Labile. Resume p.o. metoprolol and amlodipine once able to tolerate orally Plan Plan of Care Problems Medical Problems: (1) Abdominal fluid collection Status: Acute (2) Abdominal pain Status: Acute Comment Review of Relevant I have reviewed the following items mariusz (where applicable) has been applied. Labs Laboratory Tests Test 10/09/21 11:00 White Blood Count 15.5 x10^3/uL (4.0-11.0) Red Blood Count 3.01 x10^6/uL (3.50-5.40) Hemoglobin 9.5 g/dL (12.0-15.5) Hematocrit 29.7 % (36.0-47.0) Mean Corpuscular Volume 99 fL (79-100) Mean Corpuscular Hemoglobin 32 pg (25-35) Mean Corpuscular Hemoglobin Concent 32 g/dL (31-37) Red Cell Distribution Width 14.3 % (11.5-14.5) Platelet Count 670 x10^3/uL (140-400) Neutrophils (%) (Auto) 86 % (31-73) Lymphocytes (%) (Auto) 6 % (24-48) Monocytes (%) (Auto) 8 % (0-9) Eosinophils (%) (Auto) 0 % (0-3) Basophils (%) (Auto) 0 % (0-3) Neutrophils # (Auto) 13.3 x10^3/uL (1.8-7.7) Lymphocytes # (Auto) 0.9 x10^3/uL (1.0-4.8) Monocytes # (Auto) 1.3 x10^3/uL (0.0-1.1) Eosinophils # (Auto) 0.0 x10^3/uL (0.0-0.7) Basophils # (Auto) 0.0 x10^3/uL (0.0-0.2) Segmented Neutrophils % 92 % (35-66) Lymphocytes % 4 % (24-48) Monocytes % 3 % (0-10) Basophils % 1 % (0-3) Platelet Estimate Increased (ADEQUATE) Sodium Level 146 mmol/L (136-145) Potassium Level 3.6 mmol/L (3.5-5.1) Chloride Level 105 mmol/L (98-107) Carbon Dioxide Level 23 mmol/L (21-32) Anion Gap 18 (6-14) Blood Urea Nitrogen 21 mg/dL (7-20) Creatinine 1.7 mg/dL (0.6-1.0) Estimated GFR (Cockcroft-Gault) 28.7 Glucose Level 133 mg/dL (70-99) Calcium Level 9.4 mg/dL (8.5-10.1) Procalcitonin 0.12 ng/mL (0.00-0.10) Medications Current Medications Azithromycin 500 mg/Sodium Chloride 250 ml @ 250 mls/hr Q24H IV Last administered on 10/09/21at 15:44; Start 10/09/21 at 15:00 Cefepime HCl (Maxipime) 1 gm Q24H IVP Last administered on 10/09/21at 15:00; Start 10/09/21 at 15:00 Vitals/I & O Vital Sign - Last 24 Hours 10/09/21 10/09/21 10/09/21 10/09/21 11:00 11:54 15:00 17:45 Temp 98.1 98.2 98.1 98.2 Pulse 115 114 108 108 Resp 19 19 B/P (MAP) 137/68 (91) 140/70 168/64 (98) 168/64 Pulse Ox 97 95 O2 Delivery Room Air Room Air 10/09/21 10/09/21 10/09/21 10/10/21 19:00 20:15 23:15 00:00 Temp 98.7 98.7 98.7 98.7 Pulse 102 92 92 Resp 20 20 B/P (MAP) 131/68 (89) 137/84 (101) 137/84 Pulse Ox 98 93 O2 Delivery Room Air Room Air Room Air 10/10/21 10/10/21 10/10/21 10/10/21 03:00 05:55 07:00 08:00 Temp 99.5 98.2 99.5 98.2 Pulse 118 118 113 113 Resp 20 18 B/P (MAP) 120/69 (86) 120/69 164/71 (102) 164/71 Pulse Ox 98 95 O2 Delivery Room Air Room Air 10/10/21 08:06 O2 Delivery Room Air Intake and Output 10/09/21 10/09/21 10/10/21 15:00 23:00 07:00 Intake Total 200 ml 150 ml Balance 200 ml 150 ml KARYNA BAILON MD Oct 10, 2021 09:40
[2021-10-10 11:00] VITALS: BP 167/72
[2021-10-10 11:58] LABS: BASO % 0 % (0-3); EOS % 0 % (0-3); HEMATOCRIT 26.2 % (36.0-47.0); HEMOGLOBIN 8.9 g/dL (12.0-15.5); LYMPH # 1.2 x10^3/uL (1.0-4.8); LYMPH % 10 % (24-48); MEAN CORPUSCULAR HEMOGLOBIN 33 pg (25-35); MEAN CORPUSCULAR HGB CONC 34 g/dL (31-37); MEAN CORPUSCULAR VOLUME 97 fL (79-100); MONO # 1.1 x10^3/uL (0.0-1.1); MONO % 10 % (0-9); NEUT # 9.4 x10^3/uL (1.8-7.7); NEUT % 80 % (31-73); PLATELET COUNT 543 x10^3/uL (140-400); RED BLOOD COUNT 2.71 x10^6/uL (3.50-5.40); RED CELL DISTRIBUTION WIDTH 14.7 % (11.5-14.5); WHITE BLOOD COUNT 11.8 x10^3/uL (4.0-11.0)
--- NOTE | 2021-10-10 11:58 | PDOC ---
[employer] [facility] PROGRESS NOTE Date of Service DOS: DATE: 10/10/21 TIME: 11:58 Chief Complaint Chief Complaint Bilateral atelectasis, possible consolidations concerning for hospital-acquired pneumonia acute on chronic abdominal pain s/p ileostomy and take down, last seen here in 2019 GI consult Enteritis, Zosyn GERD, PPI given continue Pending pro calcitonin We will start empiric IV antibiotics Cardiology consulted for as needed Lasix for possible CHF exacerbation Pulmonology consulted for respiratory distress History of Present Illness History of Present Illness 10/10/2021 No acute events overnight. Patient seen examined bedside. No more nausea or vomiting and still having stooling. Low-grade fever of 99.5. Continue with empiric IV antibiotics for presumed pneumonia. Will repeat chest x-ray in the morning and repeat labs. Patient's chart, labs, images were reviewed and discussed with RN 10/09/2021 No acute events tonight. Patient seen examined bedside. T-max of 99.3. Still having vomiting but seen on commode this morning with lots of loose stool. Surgery has recommended cardiology and pulmonary to evaluate patient for shortness of breath. Chest x-ray yesterday showing bilateral basilar opacities. Will initiate IV antibiotic for pneumonia. Patient's chart, labs, images were reviewed and discussed with RN 10/08/21 No acute events overnight. Patient seen examined bedside. AF and VSS. Patient has no vomiting episodes in the last 24 hours. Pending small bowel follow- through ordered by sterile surgery. Patient is currently refusing NG tube placement. Patient also complains some shortness of breath with nurse reporting audible wheezing. I do see wheezing I do not hear any obvious coarse crackles. Checks x-ray has been ordered. I have reduced her fluids to 50 cc/h of NS and ordered DuoNebs as needed. 10/07/2021 No acute events overnight. Patient continues to have vomiting episodes last night and this morning. Abdomen is distended. Continues to have diffuse abdominal pains. Patient may need NG tube despite the normal-appearing KUB.. Will defer this decision with surgery. KUB obtained showing nonobstructive bowel gas pattern. No gastric distention. Patient's chart, labs, images were reviewed and discussed with RN 10/06/2021 No acute events overnight. Patient seen examined bedside. AF and VSS. Patient had vomiting episode after morphine was given. She continues to have bilious vomiting. Abdominal x-ray shows nonobstructive bowel gas pattern. No signs of obvious obstruction. Abdomen is distended and firm. Diffuse tenderness. No bowel movement since Tuesday. Not passing flatus. Instructed patient to maintain upright position as much as possible and out of bed to chair 3 times daily. GI and surgery following. Appreciate their recommendations. Patient's chart, labs, images were reviewed and discussed with RN 10/05 Patient evaluated examined at bedside. Says she still having some abdominal pain. Surgery GI following. Continue antibiotics. Stool softener added today. Symptomatic treatment. Discussed with RN. 10/04 Patient eval and examined at bedside. Resting in bed saying abdominal pain was a little improved. No nausea vomiting diarrhea. Continue empiric abx. Gi consulted. Discussed wtih bedside RN. Vitals/I&O Vitals/I&O: Vital Signs Date Time Temp Pulse Resp B/P (MAP) Pulse Ox O2 Delivery O2 Flow Rate FiO2 10/10/21 08:06 Room Air 10/10/21 08:00 113 164/71 10/10/21 07:00 98.2 18 95 98.2 I & O 10/09/21 10/09/21 10/10/21 15:00 23:00 07:00 Intake Total 200 ml 150 ml Balance 200 ml 150 ml Physical Exam General: Alert, Oriented X3, Cooperative Heart: Regular rate (SR/ST), Normal S1, Normal S2, No murmurs Lungs: Clear Abdomen: Soft, Other (ttp epigastric) Extremities: No cyanosis, Other (2+ bilateral Le pitting edema) Skin: No breakdown, No significant lesion Assessment and Plan Assessmemt and Plan Problems Medical Problems: (1) Abdominal fluid collection Status: Acute (2) Abdominal pain Status: Acute Comment Review of Relevant I have reviewed the following items mariusz (where applicable) has been applied. Medications: Current Medications Medications (Trade) Dose Ordered Sig/Ella Route PRN Reason Start Time Stop Time Status Last Admin Dose Admin Cefepime HCl (Maxipime) 1 gm Q24H IVP 10/09/21 15:00 10/09/21 15:00 Azithromycin 500 mg/Sodium Chloride 250 ml @ 250 mls/hr Q24H IV 10/09/21 15:00 10/09/21 15:44 Justifications for Admission Other Justification EDSON CARROLL MD Oct 10, 2021 11:58
[2021-10-10 12:08] LABS: CALCIUM 8.6 mg/dL (8.5-10.1); CREATININE 1.4 mg/dL (0.6-1.0); GFR 35.9; MAGNESIUM 1.8 mg/dL (1.8-2.4); POTASSIUM 3.3 mmol/L (3.5-5.1)
[2021-10-10] MEDS: AZITHROMYCIN 500 MG in IV NORMAL SALINE 250ML 250 ML IV SCH (14:55)
[2021-10-10] MEDS: CEFEPIME HCL IV Push 1 GM VIAL. IVP SCH (14:55)
[2021-10-10 15:00] VITALS: BP 157/68
[2021-10-10 19:37] VITALS: BP 155/63
[2021-10-10] MEDS: AMITRIPTYLINE HCL 10 MG TABLET. PO SCH (21:18)
[2021-10-10 23:34] VITALS: BP 158/82
[2021-10-11 03:22] VITALS: BP 169/75
[2021-10-11] MEDS: METOPROLOL IV PUSH 5 MG/5 ML VIAL. IVP SCH ×3 (06:24→17:48)
[2021-10-11 07:00] VITALS: BP 149/68
[2021-10-11] MEDS: PANTOPRAZOLE IV PUSH 40 MG VIAL. IVP SCH ×2 (08:26→17:01)
--- NOTE | 2021-10-11 08:26 | PDOC ---
PROGRESS NOTES Date of Service: DATE: 10/11/21 TIME: 08:26 Subjective Subjective c/o edema, denied any shortness of breath Objective Objective Vital Signs Date Time Temp Pulse Resp B/P (MAP) Pulse Ox O2 Delivery O2 Flow Rate FiO2 10/11/21 06:24 169/75 10/11/21 03:22 97.6 108 20 95 Nasal Cannula 97.6 10/10/21 23:34 1.0 Intake and Output 10/11/21 07:00 Output Total 500 ml Balance -500 ml Output Urine Total 500 ml # Voids 4 # Bowel Movements 5 Physical Exam Abdomen: Soft, Other (ttp epigastric) Heart: Regular rate (SR/ST), Normal S1, Normal S2, No murmurs Extremities: No cyanosis, Other (1+ bilateral Le pitting edema) General: Alert, Oriented X3, Cooperative HEENT: Atraumatic, Mucous membr. moist/pink Lungs: Other (basilar crackles) Neuro: Normal speech, Sensation intact Psych/Mental Status: Mental status NL, Mood NL Skin: No breakdown, No significant lesion Assessment Assessment 1. Abdominal pain: remains nauseated. s/p ileostomy and takedown in the past. Gastroenterology team following. 2. Sinus tachycardia, reactive. Telemetry did not show any other arrhythmias. 3. Mild acute diastolic CHF: appears better compensated. We will give additional dose of Lasix today. 4. HTN: Blood pressure elevated. Amlodipine resumed. Start metoprolol. 5. Possible hospital-acquired pneumonia: Continue antibiotics Plan Plan of Care Problems Medical Problems: (1) Abdominal fluid collection Status: Acute (2) Abdominal pain Status: Acute Comment Review of Relevant I have reviewed the following items mariusz (where applicable) has been applied. Labs Laboratory Tests Test 10/10/21 11:33 White Blood Count 11.8 x10^3/uL (4.0-11.0) Red Blood Count 2.71 x10^6/uL (3.50-5.40) Hemoglobin 8.9 g/dL (12.0-15.5) Hematocrit 26.2 % (36.0-47.0) Mean Corpuscular Volume 97 fL (79-100) Mean Corpuscular Hemoglobin 33 pg (25-35) Mean Corpuscular Hemoglobin Concent 34 g/dL (31-37) Red Cell Distribution Width 14.7 % (11.5-14.5) Platelet Count 543 x10^3/uL (140-400) Neutrophils (%) (Auto) 80 % (31-73) Lymphocytes (%) (Auto) 10 % (24-48) Monocytes (%) (Auto) 10 % (0-9) Eosinophils (%) (Auto) 0 % (0-3) Basophils (%) (Auto) 0 % (0-3) Neutrophils # (Auto) 9.4 x10^3/uL (1.8-7.7) Lymphocytes # (Auto) 1.2 x10^3/uL (1.0-4.8) Monocytes # (Auto) 1.1 x10^3/uL (0.0-1.1) Eosinophils # (Auto) 0.0 x10^3/uL (0.0-0.7) Basophils # (Auto) 0.0 x10^3/uL (0.0-0.2) Sodium Level 145 mmol/L (136-145) Potassium Level 3.3 mmol/L (3.5-5.1) Chloride Level 107 mmol/L (98-107) Carbon Dioxide Level 24 mmol/L (21-32) Anion Gap 14 (6-14) Blood Urea Nitrogen 22 mg/dL (7-20) Creatinine 1.4 mg/dL (0.6-1.0) Estimated GFR (Cockcroft-Gault) 35.9 Glucose Level 116 mg/dL (70-99) Calcium Level 8.6 mg/dL (8.5-10.1) Magnesium Level 1.8 mg/dL (1.8-2.4) Vitals/I & O Vital Sign - Last 24 Hours 10/10/21 10/10/21 10/10/21 10/10/21 11:00 12:23 15:00 17:34 Temp 98.0 98.3 98.0 98.3 Pulse 116 116 110 110 Resp 20 20 B/P (MAP) 167/72 (103) 167/72 157/68 (97) 157/68 Pulse Ox 96 97 O2 Delivery Room Air Room Air 10/10/21 10/10/21 10/10/21 10/10/21 19:37 20:00 23:34 23:59 Temp 98.2 98.1 98.2 98.1 Pulse 111 113 Resp 20 18 B/P (MAP) 155/63 (93) 158/82 (107) 158/82 Pulse Ox 97 96 O2 Delivery Nasal Cannula Room Air Nasal Cannula O2 Flow Rate 1.0 1.0 1.0 10/11/21 10/11/21 03:22 06:24 Temp 97.6 97.6 Pulse 108 Resp 20 B/P (MAP) 169/75 (106) 169/75 Pulse Ox 95 O2 Delivery Nasal Cannula Intake and Output 10/10/21 10/10/21 10/11/21 15:00 23:00 07:00 Output Total 500 ml Balance -500 ml KARYNA BAILON MD Oct 11, 2021 08:26
--- NOTE | 2021-10-11 08:34 | PDOC ---
SURGICAL PROGRESS NOTE DATE: 10/11/21 TIME: 08:34 Subjective no n/v, feeling better diarrhea stopped Vital Signs Vital Signs Date Time Temp Pulse Resp B/P (MAP) Pulse Ox O2 Delivery O2 Flow Rate FiO2 10/11/21 06:24 169/75 10/11/21 03:22 97.6 108 20 95 Nasal Cannula 97.6 10/10/21 23:34 1.0 I&O Intake and Output 10/11/21 07:00 Output Total 500 ml Balance -500 ml Output Urine Total 500 ml # Voids 4 # Bowel Movements 5 General: Alert, Oriented X3, Cooperative Abdomen: Soft Labs Laboratory Tests Test 10/09/21 11:00 10/09/21 18:05 10/10/21 11:33 White Blood Count 15.5 x10^3/uL (4.0-11.0) 11.8 x10^3/uL (4.0-11.0) Red Blood Count 3.01 x10^6/uL (3.50-5.40) 2.71 x10^6/uL (3.50-5.40) Hemoglobin 9.5 g/dL (12.0-15.5) 8.9 g/dL (12.0-15.5) Hematocrit 29.7 % (36.0-47.0) 26.2 % (36.0-47.0) Mean Corpuscular Volume 99 fL (79-100) 97 fL (79-100) Mean Corpuscular Hemoglobin 32 pg (25-35) 33 pg (25-35) Mean Corpuscular Hemoglobin Concent 32 g/dL (31-37) 34 g/dL (31-37) Red Cell Distribution Width 14.3 % (11.5-14.5) 14.7 % (11.5-14.5) Platelet Count 670 x10^3/uL (140-400) 543 x10^3/uL (140-400) Neutrophils (%) (Auto) 86 % (31-73) 80 % (31-73) Lymphocytes (%) (Auto) 6 % (24-48) 10 % (24-48) Monocytes (%) (Auto) 8 % (0-9) 10 % (0-9) Eosinophils (%) (Auto) 0 % (0-3) 0 % (0-3) Basophils (%) (Auto) 0 % (0-3) 0 % (0-3) Neutrophils # (Auto) 13.3 x10^3/uL (1.8-7.7) 9.4 x10^3/uL (1.8-7.7) Lymphocytes # (Auto) 0.9 x10^3/uL (1.0-4.8) 1.2 x10^3/uL (1.0-4.8) Monocytes # (Auto) 1.3 x10^3/uL (0.0-1.1) 1.1 x10^3/uL (0.0-1.1) Eosinophils # (Auto) 0.0 x10^3/uL (0.0-0.7) 0.0 x10^3/uL (0.0-0.7) Basophils # (Auto) 0.0 x10^3/uL (0.0-0.2) 0.0 x10^3/uL (0.0-0.2) Segmented Neutrophils % 92 % (35-66) Lymphocytes % 4 % (24-48) Monocytes % 3 % (0-10) Basophils % 1 % (0-3) Platelet Estimate Increased (ADEQUATE) Sodium Level 146 mmol/L (136-145) 145 mmol/L (136-145) Potassium Level 3.6 mmol/L (3.5-5.1) 3.3 mmol/L (3.5-5.1) Chloride Level 105 mmol/L (98-107) 107 mmol/L (98-107) Carbon Dioxide Level 23 mmol/L (21-32) 24 mmol/L (21-32) Anion Gap 18 (6-14) 14 (6-14) Blood Urea Nitrogen 21 mg/dL (7-20) 22 mg/dL (7-20) Creatinine 1.7 mg/dL (0.6-1.0) 1.4 mg/dL (0.6-1.0) Estimated GFR (Cockcroft-Gault) 28.7 35.9 Glucose Level 133 mg/dL (70-99) 116 mg/dL (70-99) Calcium Level 9.4 mg/dL (8.5-10.1) 8.6 mg/dL (8.5-10.1) Procalcitonin 0.12 ng/mL (0.00-0.10) Urine Legionella Antigen Negative (Negative) Magnesium Level 1.8 mg/dL (1.8-2.4) Laboratory Tests Test 10/10/21 11:33 White Blood Count 11.8 x10^3/uL (4.0-11.0) Red Blood Count 2.71 x10^6/uL (3.50-5.40) Hemoglobin 8.9 g/dL (12.0-15.5) Hematocrit 26.2 % (36.0-47.0) Mean Corpuscular Volume 97 fL (79-100) Mean Corpuscular Hemoglobin 33 pg (25-35) Mean Corpuscular Hemoglobin Concent 34 g/dL (31-37) Red Cell Distribution Width 14.7 % (11.5-14.5) Platelet Count 543 x10^3/uL (140-400) Neutrophils (%) (Auto) 80 % (31-73) Lymphocytes (%) (Auto) 10 % (24-48) Monocytes (%) (Auto) 10 % (0-9) Eosinophils (%) (Auto) 0 % (0-3) Basophils (%) (Auto) 0 % (0-3) Neutrophils # (Auto) 9.4 x10^3/uL (1.8-7.7) Lymphocytes # (Auto) 1.2 x10^3/uL (1.0-4.8) Monocytes # (Auto) 1.1 x10^3/uL (0.0-1.1) Eosinophils # (Auto) 0.0 x10^3/uL (0.0-0.7) Basophils # (Auto) 0.0 x10^3/uL (0.0-0.2) Sodium Level 145 mmol/L (136-145) Potassium Level 3.3 mmol/L (3.5-5.1) Chloride Level 107 mmol/L (98-107) Carbon Dioxide Level 24 mmol/L (21-32) Anion Gap 14 (6-14) Blood Urea Nitrogen 22 mg/dL (7-20) Creatinine 1.4 mg/dL (0.6-1.0) Estimated GFR (Cockcroft-Gault) 35.9 Glucose Level 116 mg/dL (70-99) Calcium Level 8.6 mg/dL (8.5-10.1) Magnesium Level 1.8 mg/dL (1.8-2.4) Problem List Problems Medical Problems: (1) Abdominal fluid collection Status: Acute (2) Abdominal pain Status: Acute Assessment/Plan clears today Justicifation of Admission Dx: Justifications for Admission: Justification of Admission Dx: Yes MINGO CERVANTES APRN Oct 11, 2021 08:34
[2021-10-11 11:00] VITALS: BP 157/76
[2021-10-11] MEDS: LACTOBACILLUS RHAMNOSUS GG 1 CAPSULE. PO SCH (11:53)
[2021-10-11] MEDS: CHOLECALCIFEROL (VITAMIN D3) 1,000 UNIT TABLET PO SCH (11:53)
--- NOTE | 2021-10-11 12:55 | PDOC ---
[facility] PROGRESS NOTE Date of Service DOS: DATE: 10/11/21 TIME: 12:53 Chief Complaint Chief Complaint COPD Severe debility Effusions Severe protein malnutrition Gastroenteritis Bilateral atelectasis, possible consolidations concerning for hospital-acquired pneumonia acute on chronic abdominal pain s/p ileostomy and take down, last seen here in 2019 History of Present Illness History of Present Illness 10/12/2019 Patient seen and examined Discussed with RN Chart reviewed 10/10/2021 No acute events overnight. Patient seen examined bedside. No more nausea or vomiting and still having stooling. Low-grade fever of 99.5. Continue with empiric IV antibiotics for presumed pneumonia. Will repeat chest x-ray in the morning and repeat labs. Patient's chart, labs, images were reviewed and discussed with RN 10/09/2021 No acute events tonight. Patient seen examined bedside. T-max of 99.3. Still having vomiting but seen on commode this morning with lots of loose stool. Surgery has recommended cardiology and pulmonary to evaluate patient for shortness of breath. Chest x-ray yesterday showing bilateral basilar opacities. Will initiate IV antibiotic for pneumonia. Patient's chart, labs, images were reviewed and discussed with RN 10/08/21 No acute events overnight. Patient seen examined bedside. AF and VSS. Patient has no vomiting episodes in the last 24 hours. Pending small bowel follow- through ordered by sterile surgery. Patient is currently refusing NG tube placement. Patient also complains some shortness of breath with nurse reporting audible wheezing. I do see wheezing I do not hear any obvious coarse crackles. Checks x-ray has been ordered. I have reduced her fluids to 50 cc/h of NS and ordered DuoNebs as needed. 10/07/2021 No acute events overnight. Patient continues to have vomiting episodes last night and this morning. Abdomen is distended. Continues to have diffuse abdominal pains. Patient may need NG tube despite the normal-appearing KUB.. Will defer this decision with surgery. KUB obtained showing nonobstructive bowel gas pattern. No gastric distention. Patient's chart, labs, images were reviewed and discussed with RN 10/06/2021 No acute events overnight. Patient seen examined bedside. AF and VSS. Patient had vomiting episode after morphine was given. She continues to have bilious vomiting. Abdominal x-ray shows nonobstructive bowel gas pattern. No signs of obvious obstruction. Abdomen is distended and firm. Diffuse tenderness. No bowel movement since Tuesday. Not passing flatus. Instructed patient to maintain upright position as much as possible and out of bed to chair 3 times daily. GI and surgery following. Appreciate their recommendations. Patient's chart, labs, images were reviewed and discussed with RN 10/05 Patient evaluated examined at bedside. Says she still having some abdominal pain. Surgery GI following. Continue antibiotics. Stool softener added today. Symptomatic treatment. Discussed with RN. 10/04 Patient eval and examined at bedside. Resting in bed saying abdominal pain was a little improved. No nausea vomiting diarrhea. Continue empiric abx. Gi consulted. Discussed wtih bedside RN. Vitals/I&O Vitals/I&O: Vital Signs Date Time Temp Pulse Resp B/P (MAP) Pulse Ox O2 Delivery O2 Flow Rate FiO2 10/11/21 11:53 108 176/77 10/11/21 11:00 97.5 22 95 Nasal Cannula 1.0 97.5 I & O0 10/10/21 10/10/21 10/11/21 15:00 23:00 07:00 Output Total 500 ml Balance -500 ml Physical Exam General: Alert, Oriented X3, Cooperative Heart: Regular rate (SR/ST), Normal S1, Normal S2, No murmurs Lungs: Clear Abdomen: Soft Extremities: No cyanosis, Other (2+ bilateral Le pitting edema) Skin: No breakdown, No significant lesion Assessment and Plan Assessmemt and Plan Problems Medical Problems: (1) Abdominal fluid collection Status: Acute (2) Abdominal pain Status: Acut COPD Severe debility Effusions Severe protein malnutrition Gastroenteritis Bilateral atelectasis, possible consolidations concerning for hospital-acquired pneumonia acute on chronic abdominal pain s/p ileostomy and take down, last seen here in 2019 Plan Cardiac monitoring As needed Lasix Appreciate GI and cardiology and pulmonary input Trend labs PPI Zosyn Encourage p.o. intake PT OT Suspect she will need to go to shelter eventually Comment Review of Relevant I have reviewed the following items mariusz (where applicable) has been applied. Justifications for Admission Other Justification ANDER ZIMMERMAN III DO Oct 11, 2021 12:55
[2021-10-11 15:00] VITALS: BP 168/75
[2021-10-11] MEDS: CEFEPIME HCL IV Push 1 GM VIAL. IVP SCH (15:17)
[2021-10-11] MEDS: PROCHLORPERAZINE 10 MG/2 ML VIAL. IV PRN (15:17)
[2021-10-11] MEDS: AZITHROMYCIN 500 MG in IV NORMAL SALINE 250ML 250 ML IV SCH (15:17)
[2021-10-11] MEDS ORDERED: POTASSIUM CHLORIDE 20 MEQ TABLET.ER. PO ONE (16:15)
[2021-10-11] MEDS ORDERED: FUROSEMIDE 40 MG/4 ML VIAL. IVP ONE (16:15)
[2021-10-11] MEDS: IV NORMAL SALINE 1000ML BAG 1,000 ML IV SCH (17:48)
[2021-10-11 19:46] VITALS: BP 142/72
[2021-10-11] MEDS: AMITRIPTYLINE HCL 10 MG TABLET. PO SCH (20:33)
[2021-10-11] MEDS: METOPROLOL TART IMMED RELEASE 25 MG TABLET. PO SCH (20:33)
[2021-10-11 23:22] VITALS: BP 138/64
[2021-10-12] MEDS: MORPHINE SULFATE 2 MG/ML INJ. IVP PRN ×2 (02:02→21:13)
[2021-10-12 03:19] VITALS: BP 146/66
[2021-10-12 06:27] LABS: BASO % 0 % (0-3); EOS # 0.1 x10^3/uL (0.0-0.7); EOS % 1 % (0-3); HEMOGLOBIN 8.9 g/dL (12.0-15.5); LYMPH # 1.8 x10^3/uL (1.0-4.8); LYMPH % 15 % (24-48); MEAN CORPUSCULAR HEMOGLOBIN 32 pg (25-35); MEAN CORPUSCULAR HGB CONC 32 g/dL (31-37); MEAN CORPUSCULAR VOLUME 100 fL (79-100); MONO # 1.4 x10^3/uL (0.0-1.1); MONO % 12 % (0-9); NEUT # 8.2 x10^3/uL (1.8-7.7); NEUT % 71 % (31-73); PLATELET COUNT 504 x10^3/uL (140-400); RED BLOOD COUNT 2.79 x10^6/uL (3.50-5.40); RED CELL DISTRIBUTION WIDTH 14.7 % (11.5-14.5); WHITE BLOOD COUNT 11.5 x10^3/uL (4.0-11.0)
[2021-10-12 06:51] LABS: CALCIUM 8.8 mg/dL (8.5-10.1); CREATININE 1.4 mg/dL (0.6-1.0); GFR 35.9; POTASSIUM 3.5 mmol/L (3.5-5.1)
[2021-10-12 07:00] VITALS: BP 136/63
[2021-10-12] MEDS: PANTOPRAZOLE IV PUSH 40 MG VIAL. IVP SCH ×2 (07:37→16:45)
--- NOTE | 2021-10-12 08:50 | PDOC ---
SURGICAL PROGRESS NOTE DATE: 10/12/21 TIME: 08:49 Subjective Patient states she is feeling much better diarrhea has stopped she would like to try more solid food Vital Signs Vital Signs Date Time Temp Pulse Resp B/P (MAP) Pulse Ox O2 Delivery O2 Flow Rate FiO2 10/12/21 07:38 Nasal Cannula 2.0 10/12/21 07:00 98.7 108 20 136/63 (87) 93 98.7 I&O Intake and Output0 10/12/21 07:00 Intake Total 370 ml Output Total 1800 ml Balance -1430 ml Intake Oral 120 ml IV Total 250 ml Output Urine Total 1800 ml PATIENT HAS A CALL: No General: Alert, Oriented X3, Cooperative, No acute distress Abdomen: Normal bowel sounds, Soft, No tenderness Labs Laboratory Tests Test 10/10/21 11:33 10/12/21 04:55 White Blood Count 11.8 x10^3/uL (4.0-11.0) 11.5 x10^3/uL (4.0-11.0) Red Blood Count 2.71 x10^6/uL (3.50-5.40) 2.79 x10^6/uL (3.50-5.40) Hemoglobin 8.9 g/dL (12.0-15.5) 8.9 g/dL (12.0-15.5) Hematocrit 26.2 % (36.0-47.0) 28.0 % (36.0-47.0) Mean Corpuscular Volume 97 fL (79-100) 100 fL (79-100) Mean Corpuscular Hemoglobin 33 pg (25-35) 32 pg (25-35) Mean Corpuscular Hemoglobin Concent 34 g/dL (31-37) 32 g/dL (31-37) Red Cell Distribution Width 14.7 % (11.5-14.5) 14.7 % (11.5-14.5) Platelet Count 543 x10^3/uL (140-400) 504 x10^3/uL (140-400) Neutrophils (%) (Auto) 80 % (31-73) 71 % (31-73) Lymphocytes (%) (Auto) 10 % (24-48) 15 % (24-48) Monocytes (%) (Auto) 10 % (0-9) 12 % (0-9) Eosinophils (%) (Auto) 0 % (0-3) 1 % (0-3) Basophils (%) (Auto) 0 % (0-3) 0 % (0-3) Neutrophils # (Auto) 9.4 x10^3/uL (1.8-7.7) 8.2 x10^3/uL (1.8-7.7) Lymphocytes # (Auto) 1.2 x10^3/uL (1.0-4.8) 1.8 x10^3/uL (1.0-4.8) Monocytes # (Auto) 1.1 x10^3/uL (0.0-1.1) 1.4 x10^3/uL (0.0-1.1) Eosinophils # (Auto) 0.0 x10^3/uL (0.0-0.7) 0.1 x10^3/uL (0.0-0.7) Basophils # (Auto) 0.0 x10^3/uL (0.0-0.2) 0.0 x10^3/uL (0.0-0.2) Sodium Level 145 mmol/L (136-145) 143 mmol/L (136-145) Potassium Level 3.3 mmol/L (3.5-5.1) 3.5 mmol/L (3.5-5.1) Chloride Level 107 mmol/L (98-107) 104 mmol/L (98-107) Carbon Dioxide Level 24 mmol/L (21-32) 28 mmol/L (21-32) Anion Gap 14 (6-14) 11 (6-14) Blood Urea Nitrogen 22 mg/dL (7-20) 16 mg/dL (7-20) Creatinine 1.4 mg/dL (0.6-1.0) 1.4 mg/dL (0.6-1.0) Estimated GFR (Cockcroft-Gault) 35.9 35.9 Glucose Level 116 mg/dL (70-99) 94 mg/dL (70-99) Calcium Level 8.6 mg/dL (8.5-10.1) 8.8 mg/dL (8.5-10.1) Magnesium Level 1.8 mg/dL (1.8-2.4) Laboratory Tests Test 10/12/21 04:55 White Blood Count 11.5 x10^3/uL (4.0-11.0) Red Blood Count 2.79 x10^6/uL (3.50-5.40) Hemoglobin 8.9 g/dL (12.0-15.5) Hematocrit 28.0 % (36.0-47.0) Mean Corpuscular Volume 100 fL (79-100) Mean Corpuscular Hemoglobin 32 pg (25-35) Mean Corpuscular Hemoglobin Concent 32 g/dL (31-37) Red Cell Distribution Width 14.7 % (11.5-14.5) Platelet Count 504 x10^3/uL (140-400) Neutrophils (%) (Auto) 71 % (31-73) Lymphocytes (%) (Auto) 15 % (24-48) Monocytes (%) (Auto) 12 % (0-9) Eosinophils (%) (Auto) 1 % (0-3) Basophils (%) (Auto) 0 % (0-3) Neutrophils # (Auto) 8.2 x10^3/uL (1.8-7.7) Lymphocytes # (Auto) 1.8 x10^3/uL (1.0-4.8) Monocytes # (Auto) 1.4 x10^3/uL (0.0-1.1) Eosinophils # (Auto) 0.1 x10^3/uL (0.0-0.7) Basophils # (Auto) 0.0 x10^3/uL (0.0-0.2) Sodium Level 143 mmol/L (136-145) Potassium Level 3.5 mmol/L (3.5-5.1) Chloride Level 104 mmol/L (98-107) Carbon Dioxide Level 28 mmol/L (21-32) Anion Gap 11 (6-14) Blood Urea Nitrogen 16 mg/dL (7-20) Creatinine 1.4 mg/dL (0.6-1.0) Estimated GFR (Cockcroft-Gault) 35.9 Glucose Level 94 mg/dL (70-99) Calcium Level 8.8 mg/dL (8.5-10.1) Problem List Problems Medical Problems: (1) Abdominal fluid collection Status: Acute (2) Abdominal pain Status: Acute Assessment/Plan Tolerating clears No surgical plans at this time Justicifation of Admission Dx: Justifications for Admission: Justification of Admission Dx: Yes VIKKI BOOTH MD Oct 12, 2021 08:50
[2021-10-12] MEDS: LACTOBACILLUS RHAMNOSUS GG 1 CAPSULE. PO SCH (09:23)
[2021-10-12] MEDS: CHOLECALCIFEROL (VITAMIN D3) 1,000 UNIT TABLET PO SCH (09:23)
[2021-10-12] MEDS: METOPROLOL TART IMMED RELEASE 25 MG TABLET. PO SCH ×2 (09:23→20:31)
[2021-10-12] MEDS ORDERED: POTASSIUM CHLORIDE 20 MEQ TABLET.ER. PO ONE (09:30)
--- NOTE | 2021-10-12 10:44 | PDOC ---
PULMONARY PROGRESS NOTES DATE: 10/12/21 TIME: 10:39 Subjective patient seen this morning resting in bed, feeling better. reports she is no longer wheezing. tolerating diuresis. denies diarrhea Vitals Vital Signs Date Time Temp Pulse Resp B/P (MAP) Pulse Ox O2 Delivery O2 Flow Rate FiO2 10/12/21 09:24 108 136/63 10/12/21 07:38 Nasal Cannula 2.0 10/12/21 07:00 98.7 20 93 98.7 ROS: No Nausea General: Alert, Oriented X4 Lungs: Clear Abdomen: Soft, Non-tender Neuro Exam: Alert, Oriented Extremities: Other (generalized edema) Skin: Warm, Dry Labs Laboratory Tests Test 10/10/21 11:33 10/12/21 04:55 White Blood Count 11.8 x10^3/uL (4.0-11.0) 11.5 x10^3/uL (4.0-11.0) Red Blood Count 2.71 x10^6/uL (3.50-5.40) 2.79 x10^6/uL (3.50-5.40) Hemoglobin 8.9 g/dL (12.0-15.5) 8.9 g/dL (12.0-15.5) Hematocrit 26.2 % (36.0-47.0) 28.0 % (36.0-47.0) Mean Corpuscular Volume 97 fL (79-100) 100 fL (79-100) Mean Corpuscular Hemoglobin 33 pg (25-35) 32 pg (25-35) Mean Corpuscular Hemoglobin Concent 34 g/dL (31-37) 32 g/dL (31-37) Red Cell Distribution Width 14.7 % (11.5-14.5) 14.7 % (11.5-14.5) Platelet Count 543 x10^3/uL (140-400) 504 x10^3/uL (140-400) Neutrophils (%) (Auto) 80 % (31-73) 71 % (31-73) Lymphocytes (%) (Auto) 10 % (24-48) 15 % (24-48) Monocytes (%) (Auto) 10 % (0-9) 12 % (0-9) Eosinophils (%) (Auto) 0 % (0-3) 1 % (0-3) Basophils (%) (Auto) 0 % (0-3) 0 % (0-3) Neutrophils # (Auto) 9.4 x10^3/uL (1.8-7.7) 8.2 x10^3/uL (1.8-7.7) Lymphocytes # (Auto) 1.2 x10^3/uL (1.0-4.8) 1.8 x10^3/uL (1.0-4.8) Monocytes # (Auto) 1.1 x10^3/uL (0.0-1.1) 1.4 x10^3/uL (0.0-1.1) Eosinophils # (Auto) 0.0 x10^3/uL (0.0-0.7) 0.1 x10^3/uL (0.0-0.7) Basophils # (Auto) 0.0 x10^3/uL (0.0-0.2) 0.0 x10^3/uL (0.0-0.2) Sodium Level 145 mmol/L (136-145) 143 mmol/L (136-145) Potassium Level 3.3 mmol/L (3.5-5.1) 3.5 mmol/L (3.5-5.1) Chloride Level 107 mmol/L (98-107) 104 mmol/L (98-107) Carbon Dioxide Level 24 mmol/L (21-32) 28 mmol/L (21-32) Anion Gap 14 (6-14) 11 (6-14) Blood Urea Nitrogen 22 mg/dL (7-20) 16 mg/dL (7-20) Creatinine 1.4 mg/dL (0.6-1.0) 1.4 mg/dL (0.6-1.0) Estimated GFR (Cockcroft-Gault) 35.9 35.9 Glucose Level 116 mg/dL (70-99) 94 mg/dL (70-99) Calcium Level 8.6 mg/dL (8.5-10.1) 8.8 mg/dL (8.5-10.1) Magnesium Level 1.8 mg/dL (1.8-2.4) 2.2 mg/dL (1.8-2.4) Laboratory Tests Test 10/12/21 04:55 White Blood Count 11.5 x10^3/uL (4.0-11.0) Red Blood Count 2.79 x10^6/uL (3.50-5.40) Hemoglobin 8.9 g/dL (12.0-15.5) Hematocrit 28.0 % (36.0-47.0) Mean Corpuscular Volume 100 fL (79-100) Mean Corpuscular Hemoglobin 32 pg (25-35) Mean Corpuscular Hemoglobin Concent 32 g/dL (31-37) Red Cell Distribution Width 14.7 % (11.5-14.5) Platelet Count 504 x10^3/uL (140-400) Neutrophils (%) (Auto) 71 % (31-73) Lymphocytes (%) (Auto) 15 % (24-48) Monocytes (%) (Auto) 12 % (0-9) Eosinophils (%) (Auto) 1 % (0-3) Basophils (%) (Auto) 0 % (0-3) Neutrophils # (Auto) 8.2 x10^3/uL (1.8-7.7) Lymphocytes # (Auto) 1.8 x10^3/uL (1.0-4.8) Monocytes # (Auto) 1.4 x10^3/uL (0.0-1.1) Eosinophils # (Auto) 0.1 x10^3/uL (0.0-0.7) Basophils # (Auto) 0.0 x10^3/uL (0.0-0.2) Sodium Level 143 mmol/L (136-145) Potassium Level 3.5 mmol/L (3.5-5.1) Chloride Level 104 mmol/L (98-107) Carbon Dioxide Level 28 mmol/L (21-32) Anion Gap 11 (6-14) Blood Urea Nitrogen 16 mg/dL (7-20) Creatinine 1.4 mg/dL (0.6-1.0) Estimated GFR (Cockcroft-Gault) 35.9 Glucose Level 94 mg/dL (70-99) Calcium Level 8.8 mg/dL (8.5-10.1) Magnesium Level 2.2 mg/dL (1.8-2.4) Medications Active Scripts Medications Dose Route/Sig Max Daily Dose Days Date Category Dose Instructions Stool Softener (Docusate Sodium) 50 Mg Capsule 1 Cap PO DAILY PRN 30 10/04/21 Reported Tylenol (Acetaminophen) 325 Mg Tablet 1-2 Tab PO HS 10/04/21 Reported Perphen-Amitrip 2 Mg-10 Mg Tab (Perphenazine/Amitriptyline Hcl) 1 Each Tablet 1 Tab PO QHS 10/04/21 Reported Methotrexate (Methotrexate Sodium) 2.5 Mg Tablet 10 Tab PO Tuesday10/04/21 Reported Folic Acid 0.8 Mg Capsule 1 Cap PO DAILY 30 10/04/21 Reported Vitamin D3 (Vitamin D) 25 Mcg Tablet 25 Mcg PO DAILY 10/04/21 Reported 1,000 UNITS = 25 MCG Amlodipine Besylate 2.5 Mg Tablet 2.5 Mg PO DAILY 02/07/19 Reported Vit C-Quyen Hips 500 mg Chew Tb (Ascorbic Acid/Ascorbate Sodium) 500 Mg Tab.chew 500 Mg PO DAILY 02/07/19 Reported Probiotic Acidophilus (Lactobacillus Acidophilus) 1 Each Tablet 1 Each PO DAILY 02/07/19 Reported Metoprolol Tartrate 50 Mg Tablet 50 Mg PO BID 02/07/19 Reported Omeprazole 20 Mg Tablet.dr 20 Mg PO DAILY 02/07/19 Reported Multivitamins (Multivitamin) 1 Each Tablet 1 Tab PO DAILY 12/20/17 Reported Impression . IMPRESSION: 1. Mild dyspnea. This is likely related to development of bibasilar pleural effusion. She has been receiving IV fluids. She has low albumin and likely low oncotic pressure contributing to pleural effusions, responded to Lasix. no evidence of pneumonia. 2. Underlying tobaccoism for 40+ years. She likely has underlying COPD. She currently does not have any exacerbation of chronic obstructive pulmonary disease. 3. Gastroenteritis to be managed by GI. Plan . RECOMMENDATIONS: 1. Pulmonary status stable. At this point, monitor for any future increasing dyspnea. 2. Continue p.r.n. Lasix. 3. P.r.n. oxygen. 4. Follow GI recommendations. 5. We will be available for any further recommendations. 6. Would recommend PFTs as an outpatient. 7. Continue present p.r.n. bronchodilators. 8. We will be available for any further recommendations. We will see her p.r.n. ZUNILDA RANGEL MD Oct 12, 2021 10:44
[2021-10-12 11:00] VITALS: BP 148/69
[2021-10-12] MEDS: IV NORMAL SALINE 1000ML BAG 1,000 ML IV SCH (11:08)
--- NOTE | 2021-10-12 12:17 | PDOC ---
[facility] PROGRESS NOTE Date of Service DOS: DATE: 10/12/21 TIME: 12:13 Chief Complaint Chief Complaint COPD Severe debility Effusions Severe protein malnutrition Gastroenteritis Bilateral atelectasis, possible consolidations concerning for hospital-acquired pneumonia acute on chronic abdominal pain s/p ileostomy and take down, last seen here in 2018 History of Present Illness History of Present Illness 10/12/2021 No acute events overnight. Patient seen examined bedside, resting comfortably will attempt to advance diet today to GI soft. No surgical plans at this time. AF and VSS. Patient's chart, labs, images were reviewed and discussed with RN 10/12/2019 Patient seen and examined Discussed with RN Chart reviewed 10/10/2021 No acute events overnight. Patient seen examined bedside. No more nausea or vomiting and still having stooling. Low-grade fever of 99.5. Continue with empiric IV antibiotics for presumed pneumonia. Will repeat chest x-ray in the morning and repeat labs. Patient's chart, labs, images were reviewed and discussed with RN 10/09/2021 No acute events tonight. Patient seen examined bedside. T-max of 99.3. Still having vomiting but seen on commode this morning with lots of loose stool. Surgery has recommended cardiology and pulmonary to evaluate patient for shortness of breath. Chest x-ray yesterday showing bilateral basilar opacities. Will initiate IV antibiotic for pneumonia. Patient's chart, labs, images were reviewed and discussed with RN 10/08/21 No acute events overnight. Patient seen examined bedside. AF and VSS. Patient has no vomiting episodes in the last 24 hours. Pending small bowel follow- through ordered by sterile surgery. Patient is currently refusing NG tube placement. Patient also complains some shortness of breath with nurse reporting audible wheezing. I do see wheezing I do not hear any obvious coarse crackles. Checks x-ray has been ordered. I have reduced her fluids to 50 cc/h of NS and ordered DuoNebs as needed. 10/07/2021 No acute events overnight. Patient continues to have vomiting episodes last night and this morning. Abdomen is distended. Continues to have diffuse abdominal pains. Patient may need NG tube despite the normal-appearing KUB.. Will defer this decision with surgery. KUB obtained showing nonobstructive b owel gas pattern. No gastric distention. Patient's chart, labs, images were reviewed and discussed with RN 10/06/2021 No acute events overnight. Patient seen examined bedside. AF and VSS. Patient had vomiting episode after morphine was given. She continues to have bilious vomiting. Abdominal x-ray shows nonobstructive bowel gas pattern. No signs of obvious obstruction. Abdomen is distended and firm. Diffuse tenderness. No bowel movement since Tuesday. Not passing flatus. Instructed patient to m aintain upright position as much as possible and out of bed to chair 3 times daily. GI and surgery following. Appreciate their recommendations. Patient's chart, labs, images were reviewed and discussed with RN 10/05 Patient evaluated examined at bedside. Says she still having some abdominal pain. Surgery GI following. Continue antibiotics. Stool softener added today. Symptomatic treatment. Discussed with RN. 10/04 Patient eval and examined at bedside. Resting in bed saying abdominal pain was a little improved. No nausea vomiting diarrhea. Continue empiric abx. Gi consulted. Discussed wtih bedside RN. Vitals/I&O Vitals/I&O: Vital Signs Date Time Temp Pulse Resp B/P (MAP) Pulse Ox O2 Delivery O2 Flow Rate FiO2 10/12/21 11:00 98.9 56 20 148/69 (95) 94 Nasal Cannula 1.0 98.9 I & O 10/11/21 10/11/21 10/12/21 15:00 23:00 07:00 Intake Total 370 ml Output Total 700 ml 1100 ml Balance -330 ml -1100 ml Physical Exam General: Alert, Oriented X3, Cooperative, No acute distress Heart: Regular rate (SR/ST), Normal S1, Normal S2, No murmurs Lungs: Clear Abdomen: Normal bowel sounds, Soft, No tenderness Extremities: No cyanosis, Other (1+ bilateral Le pitting edema) Skin: No breakdown, No significant lesion Labs Labs: Laboratory Tests Test 10/12/21 04:55 White Blood Count 11.5 x10^3/uL (4.0-11.0) Red Blood Count 2.79 x10^6/uL (3.50-5.40) Hemoglobin 8.9 g/dL (12.0-15.5) Hematocrit 28.0 % (36.0-47.0) Mean Corpuscular Volume 100 fL (79-100) Mean Corpuscular Hemoglobin 32 pg (25-35) Mean Corpuscular Hemoglobin Concent 32 g/dL (31-37) Red Cell Distribution Width 14.7 % (11.5-14.5) Platelet Count 504 x10^3/uL (140-400) Neutrophils (%) (Auto) 71 % (31-73) Lymphocytes (%) (Auto) 15 % (24-48) Monocytes (%) (Auto) 12 % (0-9) Eosinophils (%) (Auto) 1 % (0-3) Basophils (%) (Auto) 0 % (0-3) Neutrophils # (Auto) 8.2 x10^3/uL (1.8-7.7) Lymphocytes # (Auto) 1.8 x10^3/uL (1.0-4.8) Monocytes # (Auto) 1.4 x10^3/uL (0.0-1.1) Eosinophils # (Auto) 0.1 x10^3/uL (0.0-0.7) Basophils # (Auto) 0.0 x10^3/uL (0.0-0.2) Sodium Level 143 mmol/L (136-145) Potassium Level 3.5 mmol/L (3.5-5.1) Chloride Level 104 mmol/L (98-107) Carbon Dioxide Level 28 mmol/L (21-32) Anion Gap 11 (6-14) Blood Urea Nitrogen 16 mg/dL (7-20) Creatinine 1.4 mg/dL (0.6-1.0) Estimated GFR (Cockcroft-Gault) 35.9 Glucose Level 94 mg/dL (70-99) Calcium Level 8.8 mg/dL (8.5-10.1) Magnesium Level 2.2 mg/dL (1.8-2.4) Assessment and Plan Assessmemt and Plan Problems Medical Problems: (1) Abdominal fluid collection Status: Acute (2) Abdominal pain Status: Acute Comment Review of Relevant I have reviewed the following items [email or web address] (where applicable) has been applied. Medications: Current Medications Medications (Trade) Dose Ordered Sig/Ella Route PRN Reason Start Time Stop Time Status Last Admin Dose Admin Furosemide (Lasix) 40 mg 1X ONCE IVP 10/11/21 16:15 10/11/21 16:16 DC 10/11/21 17:01 Potassium Chloride (Klor-Con) 40 meq 1X ONCE PO 10/11/21 16:15 10/11/21 16:16 DC 10/11/21 17:01 Metoprolol Tartrate (Lopressor) 25 mg BID PO 10/11/21 21:00 10/12/21 09:23 Potassium Chloride (Klor-Con) 40 meq 1X ONCE PO 10/12/21 09:30 10/12/21 09:31 DC 10/12/21 09:25 Justifications for Admission Other Justification EDSON CARROLL MD Oct 12, 2021 12:17
--- NOTE | 2021-10-12 12:25 | PDOC ---
Date of Service: DATE: 10/12/21 TIME: 12:20 Subjective: Subjective: Not going to eat jello again. No vomiting but "gags." Abd pain improved. Denies flatus and stool since Sat. Objective: Vital Signs: Vital Signs Date Time Temp Pulse Resp B/P (MAP) Pulse Ox O2 Delivery O2 Flow Rate FiO2 10/12/21 11:00 98.9 56 20 148/69 (95) 94 Nasal Cannula 1.0 98.9 Labs: Laboratory Tests Test 10/12/21 04:55 White Blood Count 11.5 x10^3/uL Red Blood Count 2.79 x10^6/uL Hemoglobin 8.9 g/dL Hematocrit 28.0 % Mean Corpuscular Volume 100 fL Mean Corpuscular Hemoglobin 32 pg Mean Corpuscular Hemoglobin Concent 32 g/dL Red Cell Distribution Width 14.7 % Platelet Count 504 x10^3/uL Neutrophils (%) (Auto) 71 % Lymphocytes (%) (Auto) 15 % Monocytes (%) (Auto) 12 % Eosinophils (%) (Auto) 1 % Basophils (%) (Auto) 0 % Neutrophils # (Auto) 8.2 x10^3/uL Lymphocytes # (Auto) 1.8 x10^3/uL Monocytes # (Auto) 1.4 x10^3/uL Eosinophils # (Auto) 0.1 x10^3/uL Basophils # (Auto) 0.0 x10^3/uL Sodium Level 143 mmol/L Potassium Level 3.5 mmol/L Chloride Level 104 mmol/L Carbon Dioxide Level 28 mmol/L Anion Gap 11 Blood Urea Nitrogen 16 mg/dL Creatinine 1.4 mg/dL Estimated GFR (Cockcroft-Gault) 35.9 Glucose Level 94 mg/dL Calcium Level 8.8 mg/dL Magnesium Level 2.2 mg/dL Imaging: SBS 10/08 IMPRESSION: 1. Mild prolongation of the small bowel transit time without evidence of small bowel obstruction. PE: GEN: NAD LUNGS: diminished, some coughing, NC 1L HEART: RRR when I saw - some tachycardia noted in chart ABD: few quiet gurgles, less tender, stable distention/appearance NEURO/PSYCH: A & O 3, frustrated A/P: Nausea - no vomiting, SBS without obstruction ACD/JESÚS - stable H/o diverticular disease s/p resection, h/o constipation - had "diarrhea" Fri- Sat Cholelithiasis COVID negative SOA, CHF, HTN -- Frustrated w/ clear liquid diet - we'll try full liquids - change to PO PPI if t olerates. (Since I have seen, GI soft diet ordered.) Justicifation of Admission Dx: Justifications for Admission: Justification of Admission Dx: Yes IRASEMA MCCARTY Oct 12, 2021 12:25
--- NOTE | 2021-10-12 14:44 | NUR ---
SW following, discussed with RN, pt from home alone, 2L (does not use oxygen at home). OT recommending SNF, therapy hasn't seen yet. SW met with pt, pt agreeable and would like [facility]. DIANA requested repeat PCR. DIANA notified [facility] of referral - awaiting PT note. DIANA will continue to follow. Addendum: 10/12/21 at 1552 by GENNY ORTIZ Pt accepted at [facility] - awaiting PT to see pt.
[2021-10-12 15:00] VITALS: BP 126/60
--- NOTE | 2021-10-12 16:35 | PDOC ---
PROGRESS NOTES Date of Service DATE: 10/12/21 TIME: 16:33 Subjective Subjective Patient seen and examined Objective Objective Vital Signs Date Time Temp Pulse Resp B/P (MAP) Pulse Ox O2 Delivery O2 Flow Rate FiO2 10/12/21 15:00 97.7 106 18 126/60 (82) 96 Nasal Cannula 1.0 97.7 Intake and Output 10/12/21 07:00 Intake Total 370 ml Output Total 1800 ml Balance -1430 ml Intake Oral 120 ml IV Total 250 ml Output Urine Total 1800 ml Physical Exam Abdomen: Normal bowel sounds Heart: Regular rate General: mild distress Lungs: Other (Slightly decreased breath sounds) Assessment Assessment Problems Medical Problems: (1) Abdominal fluid collection Status: Acute (2) Abdominal pain Status: Acute 1. Abdominal pain: Feeling mildly better today. Advancing diet. Followed by surgery and GI. 2. Sinus tachycardia, reactive. Telemetry did not show any other arrhythmias. 3. Mild acute diastolic CHF: appears better compensated. Continue present treatment. 4. HTN: Blood pressure elevated. Amlodipine resumed. Metoprolol discontinued. 5. Possible hospital-acquired pneumonia: Continue antibiotics Comment Review of Relevant I have reviewed the following items [email or web address] (where applicable) has been applied. Labs Laboratory Tests Test 10/12/21 04:55 White Blood Count 11.5 x10^3/uL (4.0-11.0) Red Blood Count 2.79 x10^6/uL (3.50-5.40) Hemoglobin 8.9 g/dL (12.0-15.5) Hematocrit 28.0 % (36.0-47.0) Mean Corpuscular Volume 100 fL (79-100) Mean Corpuscular Hemoglobin 32 pg (25-35) Mean Corpuscular Hemoglobin Concent 32 g/dL (31-37) Red Cell Distribution Width 14.7 % (11.5-14.5) Platelet Count 504 x10^3/uL (140-400) Neutrophils (%) (Auto) 71 % (31-73) Lymphocytes (%) (Auto) 15 % (24-48) Monocytes (%) (Auto) 12 % (0-9) Eosinophils (%) (Auto) 1 % (0-3) Basophils (%) (Auto) 0 % (0-3) Neutrophils # (Auto) 8.2 x10^3/uL (1.8-7.7) Lymphocytes # (Auto) 1.8 x10^3/uL (1.0-4.8) Monocytes # (Auto) 1.4 x10^3/uL (0.0-1.1) Eosinophils # (Auto) 0.1 x10^3/uL (0.0-0.7) Basophils # (Auto) 0.0 x10^3/uL (0.0-0.2) Sodium Level 143 mmol/L (136-145) Potassium Level 3.5 mmol/L (3.5-5.1) Chloride Level 104 mmol/L (98-107) Carbon Dioxide Level 28 mmol/L (21-32) Anion Gap 11 (6-14) Blood Urea Nitrogen 16 mg/dL (7-20) Creatinine 1.4 mg/dL (0.6-1.0) Estimated GFR (Cockcroft-Gault) 35.9 Glucose Level 94 mg/dL (70-99) Calcium Level 8.8 mg/dL (8.5-10.1) Magnesium Level 2.2 mg/dL (1.8-2.4) Laboratory Tests Test 10/12/21 04:55 White Blood Count 11.5 x10^3/uL (4.0-11.0) Red Blood Count 2.79 x10^6/uL (3.50-5.40) Hemoglobin 8.9 g/dL (12.0-15.5) Hematocrit 28.0 % (36.0-47.0) Mean Corpuscular Volume 100 fL (79-100) Mean Corpuscular Hemoglobin 32 pg (25-35) Mean Corpuscular Hemoglobin Concent 32 g/dL (31-37) Red Cell Distribution Width 14.7 % (11.5-14.5) Platelet Count 504 x10^3/uL (140-400) Neutrophils (%) (Auto) 71 % (31-73) Lymphocytes (%) (Auto) 15 % (24-48) Monocytes (%) (Auto) 12 % (0-9) Eosinophils (%) (Auto) 1 % (0-3) Basophils (%) (Auto) 0 % (0-3) Neutrophils # (Auto) 8.2 x10^3/uL (1.8-7.7) Lymphocytes # (Auto) 1.8 x10^3/uL (1.0-4.8) Monocytes # (Auto) 1.4 x10^3/uL (0.0-1.1) Eosinophils # (Auto) 0.1 x10^3/uL (0.0-0.7) Basophils # (Auto) 0.0 x10^3/uL (0.0-0.2) Sodium Level 143 mmol/L (136-145) Potassium Level 3.5 mmol/L (3.5-5.1) Chloride Level 104 mmol/L (98-107) Carbon Dioxide Level 28 mmol/L (21-32) Anion Gap 11 (6-14) Blood Urea Nitrogen 16 mg/dL (7-20) Creatinine 1.4 mg/dL (0.6-1.0) Estimated GFR (Cockcroft-Gault) 35.9 Glucose Level 94 mg/dL (70-99) Calcium Level 8.8 mg/dL (8.5-10.1) Magnesium Level 2.2 mg/dL (1.8-2.4) Medications Current Medications Famotidine (Pepcid Vial) 20 mg 1X ONCE IVP Last administered on 10/03/21at 15:5 2; Start 10/03/21 at 15:45; Stop 10/03/21 at 15:46; Status DC Ondansetron HCl (Zofran) 4 mg 1X ONCE IVP Last administered on 10/03/21at 15:52; Start 10/03/21 at 15:45; Stop 10/03/21 at 15:46; Status DC Sodium Chloride 1,000 ml @ 1,000 mls/hr 1X ONCE IV Last administered on 10/03/21at 15:52; Start 10/03/21 at 15:45; Stop 10/03/21 at 16:44; Status DC Pantoprazole Sodium (PROTONIX VIAL for IV PUSH) 40 mg 1X ONCE IVP ; Start 10/03/21 at 19:00; Stop 10/03/21 at 19:01; Status Cancel Piperacillin Sod/ Tazobactam Sod 3.375 gm/Sodium Chloride 50 ml @ 100 mls/hr 1X ONCE IV ; Start 10/03/21 at 18:45; Stop 10/03/21 at 19:14; Status UNV Piperacillin Sod/ Tazobactam Sod 2.25 gm/Sodium Chloride 50 ml @ 100 mls/hr 1X ONCE IV Last administered on 10/03/21at 19:12; Start 10/03/21 at 19:00; Stop 10/03/21 at 19:29; Status DC Pantoprazole Sodium (PROTONIX VIAL for IV PUSH) 40 mg DAILY IVP Last administered on 10/04/21at 08:03; Start 10/04/21 at 09:00; Stop 10/04/21 at 12:28; Status DC Piperacillin Sod/ Tazobactam Sod (Zosyn Per Pharmacy) 1 each PRN DAILY PRN MC SEE COMMENTS; Start 10/03/21 at 21:00; Stop 10/05/21 at 15:41; Status DC Sodium Chloride 1,000 ml @ 50 mls/hr Q20H IV Last administered on 10/10/21at 01:52; Start 10/03/21 at 21:00 Ondansetron HCl (Zofran) 4 mg PRN Q8HRS PRN IVP NAUSEA/VOMITING 1ST CHOICE Last administered on 10/07/21at 01:50; Start 10/03/21 at 21:00; Stop 10/07/21 at 09:41; Status DC Morphine Sulfate (Morphine Sulfate) 2 mg PRN Q2HR PRN IVP SEVERE PAIN 7-10 Last administered on 10/12/21at 02:02; Start 10/03/21 at 21:00 Famotidine (Pepcid Vial) 20 mg DAILY IVP ; Start 10/04/21 at 09:00; Stop 10/03/21 at 21:03; Status DC Piperacillin Sod/ Tazobactam Sod 2.25 gm/Sodium Chloride 50 ml @ 100 mls/hr Q6HRS IV Last administered on 10/05/21at 12:31; Start 10/04/21 at 06:00; Stop 10/05/21 at 15:40; Status DC Vitamin D (Vitamin D3) 1,000 unit DAILY PO Last administered on 10/12/21at 09:23; Start 10/04/21 at 12:30 Metoprolol Tartrate (Lopressor) 50 mg BID PO Last administered on 10/07/21at 21:23; Start 10/04/21 at 12:30; Stop 10/08/21 at 16:40; Status DC Amlodipine Besylate (Norvasc) 2.5 mg DAILY PO Last administered on 10/12/21 09:24; Start 10/04/21 at 12:30 Lactobacillus Rhamnosus (Culturelle) 1 cap DAILY PO Last administered on 10/12/21 09:23; Start 10/05/21 at 09:00 Non-Formulary Medication (Omeprazole ) 20 mg DAILY PO ; Start 10/05/21 at 09:00; Status UNV Amitriptyline HCl (Elavil) 10 mg QHS PO Last administered on 10/11/21at 20:33; Start 10/04/21 at 21:00 Pantoprazole Sodium (PROTONIX VIAL for IV PUSH) 40 mg BID AC IVP Last administered on 10/12/21at 07:37; Start 10/04/21 at 17:30 Polyethylene Glycol (miraLAX PACKET) 17 gm PRN DAILY PRN PO CONSTIPATION; Start 10/05/21 at 10:30; Stop 10/08/21 at 09:49; Status DC Bisacodyl (Dulcolax Tab) 5 mg PRN DAILY PRN PO CONSTIPATION Last administered on 10/06/21at 06:02; Start 10/05/21 at 10:30; Stop 10/08/21 at 09:49; Status DC Amoxicillin/ Clavulanate Potassium (Augmentin 875/ 125mg) 1 tab BID PO Last administered on 10/05/21at 20:12; Start 10/05/21 at 21:00; Stop 10/06/21 at 16:40; Status DC Hydralazine HCl (Apresoline Inj) 10 mg PRN Q4HRS PRN IVP ELEVATED BP, SEE COMMENTS; Start 10/06/21 at 10:30 Metoprolol Tartrate (Lopressor Vial) 5 mg PRN Q6HRS PRN IVP HYPERTENSION Last administered on 10/07/21at 12:29; Start 10/06/21 at 10:30; Stop 10/08/21 at 16:37; Status DC Bisacodyl (Dulcolax Supp) 10 mg PRN DAILY PRN [place] CONSTIPATION; Start 10/06/21 at 11:00 Ondansetron HCl (Zofran) 4 mg PRN Q6HRS PRN IVP NAUSEA/VOMITING 1ST CHOICE Last administered on 10/08/21at 15:49; Start 10/07/21 at 09:45 Dicyclomine HCl (Bentyl) 10 mg PRN QID PRN PO ABDOMINAL CRAMPS Last administered on 10/11/21at 11:53; Start 10/07/21 at 09:45 Prochlorperazine Edisylate (Compazine) 10 mg PRN Q6HRS PRN IV NAUSEA/VOMITING (2nd Choice) Last administered on 10/11/21at 15:17; Start 10/07/21 at 09:45 Fentanyl Citrate (Fentanyl 2ml Vial) 12.5 mcg PRN Q2HR PRN IVP MODERATE PAIN; Start 10/07/21 at 09:45 Iohexol (Omnipaque 300 Mg/ml) 400 ml 1X ONCE PO Last administered on 10/08/21at 08:15; Start 10/08/21 at 08:15; Stop 10/08/21 at 08:16; Status DC Albuterol Sulfate (Ventolin Neb Soln) 2.5 mg PRN Q6HRS PRN NEB SHORTNESS OF BREATH; Start 10/08/21 at 12:15 Furosemide (Lasix) 20 mg 1X ONCE IVP Last administered on 10/08/21 15:57; Start 10/08/21 at 16:15; Stop 10/08/21 at 16:16; Status DC Metoprolol Tartrate (Lopressor Vial) 5 mg Q6HRS IVP Last administered on 10/11/21at 17:48; Start 10/08/21 at 18:00; Stop 10/11/21 at 20:35; Status DC Cefepime HCl (Maxipime) 1 gm Q24H IVP Last administered on 10/11/21 15:17; Start 10/09/21 at 15:00; Stop 10/12/21 at 08:41; Status DC Azithromycin 500 mg/Sodium Chloride 250 ml @ 250 mls/hr Q24H IV Last administered on 10/11/21 15:17; Start 10/09/21 at 15:00; Stop 10/12/21 at 08:41; Status DC Furosemide (Lasix) 40 mg 1X ONCE IVP Last administered on 10/11/21 17:01; Start 10/11/21 at 16:15; Stop 10/11/21 at 16:16; Status DC Potassium Chloride (Klor-Con) 40 meq 1X ONCE PO Last administered on 10/11/21at 17:01; Start 10/11/21 at 16:15; Stop 10/11/21 at 16:16; Status DC Metoprolol Tartrate (Lopressor) 25 mg BID PO Last administered on 10/12/21at 09:23; Start 10/11/21 at 21:00 Potassium Chloride (Klor-Con) 40 meq 1X ONCE PO Last administered on 10/12/21at 09:25; Start 10/12/21 at 09:30; Stop 10/12/21 at 09:31; Status DC Active Scripts Active Reported Stool Softener (Docusate Sodium) 50 Mg Capsule 1 Cap PO DAILY PRN 30 Days Tylenol (Acetaminophen) 325 Mg Tablet 1-2 Tab PO HS Perphen-Amitrip 2 Mg-10 Mg Tab (Perphenazine/Amitriptyline Hcl) 1 Each Tablet 1 Tab PO QHS Methotrexate (Methotrexate Sodium) 2.5 Mg Tablet 10 Tab PO TUESDAY Folic Acid 0.8 Mg Capsule 1 Cap PO DAILY 30 Days Vitamin D3 (Vitamin D) 25 Mcg Tablet 25 Mcg PO DAILY 1,000 UNITS = 25 MCG Amlodipine Besylate 2.5 Mg Tablet 2.5 Mg PO DAILY Vit C-Quyen Hips 500 mg Chew Tb (Ascorbic Acid/Ascorbate Sodium) 500 Mg Tab.chew 500 Mg PO DAILY Probiotic Acidophilus (Lactobacillus Acidophilus) 1 Each Tablet 1 Each PO DAILY Metoprolol Tartrate 50 Mg Tablet 50 Mg PO BID Omeprazole 20 Mg Tablet.dr 20 Mg PO DAILY Multivitamins (Multivitamin) 1 Each Tablet 1 Tab PO DAILY Vitals/I & O Vital Sign - Last 24 Hours 10/11/21 10/11/21 10/11/21 10/11/21 17:48 19:46 20:00 20:33 Temp 98.3 98.3 Pulse 120 106 106 Resp 18 B/P (MAP) 168/75 142/72 (95) 142/72 Pulse Ox 96 O2 Delivery Nasal Cannula Room Air O2 Flow Rate 1.0 10/11/21 10/12/21 10/12/21 10/12/21 23:22 02:02 03:19 07:00 Temp 98.2 98.0 98.7 98.2 98.0 98.7 Pulse 94 99 108 Resp 18 18 20 20 B/P (MAP) 138/64 (88) 146/66 (92) 136/63 (87) Pulse Ox 96 96 96 93 O2 Delivery Nasal Cannula Room Air Nasal Cannula Nasal Cannula O2 Flow Rate 1.0 1.0 1.0 10/12/21 10/12/21 10/12/21 10/12/21 07:38 09:23 09:24 11:00 Temp 98.9 98.9 Pulse 108 108 56 Resp 20 B/P (MAP) 136/63 136/63 148/69 (95) Pulse Ox 94 O2 Delivery Nasal Cannula Nasal Cannula O2 Flow Rate 2.0 1.0 10/12/21 15:00 Temp 97.7 97.7 Pulse 106 Resp 18 B/P (MAP) 126/60 (82) Pulse Ox 96 O2 Delivery Nasal Cannula O2 Flow Rate 1.0 Intake and Output 10/11/21 10/11/21 10/12/21 15:00 23:00 07:00 Intake Total 370 ml Output Total 700 ml 1100 ml Balance -330 ml -1100 ml Justifications for Admission Other Justification RANJAN LUO MD Oct 12, 2021 16:35
[2021-10-12 19:00] VITALS: BP 143/63
[2021-10-12] MEDS: AMITRIPTYLINE HCL 10 MG TABLET. PO SCH (20:31)
[2021-10-12 23:00] VITALS: BP 148/83
[2021-10-13 03:00] VITALS: BP 169/74
[2021-10-13] MEDS: ONDANSETRON PF 4 MG/2 ML VIAL. IVP PRN ×2 (04:21→10:06)
[2021-10-13] MEDS: PANTOPRAZOLE IV PUSH 40 MG VIAL. IVP SCH ×2 (04:21→19:13)
[2021-10-13] MEDS: MORPHINE SULFATE 2 MG/ML INJ. IVP PRN ×2 (04:21→20:09)
[2021-10-13 07:00] VITALS: BP 136/95
[2021-10-13 07:46] LABS: BASO % 0 % (0-3); EOS % 0 % (0-3); HEMATOCRIT 28.8 % (36.0-47.0); HEMOGLOBIN 9.3 g/dL (12.0-15.5); LYMPH # 1.6 x10^3/uL (1.0-4.8); LYMPH % 12 % (24-48); MEAN CORPUSCULAR HEMOGLOBIN 31 pg (25-35); MEAN CORPUSCULAR HGB CONC 32 g/dL (31-37); MEAN CORPUSCULAR VOLUME 97 fL (79-100); MONO # 1.4 x10^3/uL (0.0-1.1); MONO % 11 % (0-9); NEUT # 10.1 x10^3/uL (1.8-7.7); NEUT % 77 % (31-73); PLATELET COUNT 540 x10^3/uL (140-400); RED BLOOD COUNT 2.96 x10^6/uL (3.50-5.40); RED CELL DISTRIBUTION WIDTH 14.7 % (11.5-14.5); WHITE BLOOD COUNT 13.2 x10^3/uL (4.0-11.0)
[2021-10-13 08:32] LABS: CALCIUM 8.7 mg/dL (8.5-10.1); CREATININE 1.4 mg/dL (0.6-1.0); GFR 35.9; POTASSIUM 4.1 mmol/L (3.5-5.1)
[2021-10-13] MEDS: CHOLECALCIFEROL (VITAMIN D3) 1,000 UNIT TABLET PO SCH (08:45)
[2021-10-13] MEDS: METOPROLOL TART IMMED RELEASE 25 MG TABLET. PO SCH ×2 (08:45→20:10)
[2021-10-13] MEDS: LACTOBACILLUS RHAMNOSUS GG 1 CAPSULE. PO SCH (08:45)
--- NOTE | 2021-10-13 10:10 | PDOC ---
Date of Service: DATE: 10/13/21 TIME: 10:05 Subjective: Subjective: Vomiting again - started at 1:30 a.m. - bile and food. Stooled "all day" yesterday. Lots of acid reflux today. Objective: Objective: Head CT negative in 2018. Vital Signs: Vital Signs Date Time Temp Pulse Resp B/P (MAP) Pulse Ox O2 Delivery O2 Flow Rate FiO2 10/13/21 08:46 90 136/95 10/13/21 07:00 98.2 19 95 Nasal Cannula 1.0 98.2 Labs: Laboratory Tests Test 10/12/21 16:50 10/13/21 07:00 SARS-CoV-2 Antigen (Rapid) Positive White Blood Count 13.2 x10^3/uL Red Blood Count 2.96 x10^6/uL Hemoglobin 9.3 g/dL Hematocrit 28.8 % Mean Corpuscular Volume 97 fL Mean Corpuscular Hemoglobin 31 pg Mean Corpuscular Hemoglobin Concent 32 g/dL Red Cell Distribution Width 14.7 % Platelet Count 540 x10^3/uL Neutrophils (%) (Auto) 77 % Lymphocytes (%) (Auto) 12 % Monocytes (%) (Auto) 11 % Eosinophils (%) (Auto) 0 % Basophils (%) (Auto) 0 % Neutrophils # (Auto) 10.1 x10^3/uL Lymphocytes # (Auto) 1.6 x10^3/uL Monocytes # (Auto) 1.4 x10^3/uL Eosinophils # (Auto) 0.0 x10^3/uL Basophils # (Auto) 0.0 x10^3/uL Sodium Level 142 mmol/L Potassium Level 4.1 mmol/L Chloride Level 104 mmol/L Carbon Dioxide Level 28 mmol/L Anion Gap 10 Blood Urea Nitrogen 21 mg/dL Creatinine 1.4 mg/dL Estimated GFR (Cockcroft-Gault) 35.9 Glucose Level 136 mg/dL Calcium Level 8.7 mg/dL PE: GEN: NAD LUNGS: CTAB HEART: RRR ABD: NABS, S/ND/NT NEURO/PSYCH: A & O 3 A/P: Rapid COVID + N/v - essentially x 12 days ACD/JESÚS - stable H/o constipation - stooling Cholelithiasis -- Pleasant but bit of a difficult historian - now COVID positive and vomiting again. Update - d/w Dr. Puente and ordered GES - then called by nurse - GES cancelled - per nuc med not urgent and since COVID + should be done as outpt. Justicifation of Admission Dx: Justifications for Admission: Justification of Admission Dx: Yes IRASEMA MCCARTY Oct 13, 2021 10:10
--- NOTE | 2021-10-13 10:52 | PDOC ---
CARDIO Progress Notes Date and Time Date of Service 10/13/2021 Time of Evaluation 1010 Subjective Subjective: No Chest Pain, No shortness of breath, No Palpitations, Other (remains nauseated) Vitals Vitals Vital Signs Date Time Temp Pulse Resp B/P (MAP) Pulse Ox O2 Delivery O2 Flow Rate FiO2 10/13/21 08:46 90 136/95 10/13/21 07:00 98.2 19 95 Nasal Cannula 1.0 98.2 Weight Weight [ ] Input and Output Intake and Output Intake and Output 10/13/21 07:00 Intake Total 1080 ml Output Total 1560 ml Balance -480 ml Intake Oral 1080 ml Output Urine Total 560 ml Urine/Stool Mix 700 ml Emesis 300 ml # Voids 3 # Bowel Movements 2 Laboratory Labs Laboratory Tests Test 10/12/21 16:50 10/13/21 07:00 SARS-CoV-2 Antigen (Rapid) Positive (NEGATIVE) White Blood Count 13.2 x10^3/uL (4.0-11.0) Red Blood Count 2.96 x10^6/uL (3.50-5.40) Hemoglobin 9.3 g/dL (12.0-15.5) Hematocrit 28.8 % (36.0-47.0) Mean Corpuscular Volume 97 fL (79-100) Mean Corpuscular Hemoglobin 31 pg (25-35) Mean Corpuscular Hemoglobin Concent 32 g/dL (31-37) Red Cell Distribution Width 14.7 % (11.5-14.5) Platelet Count 540 x10^3/uL (140-400) Neutrophils (%) (Auto) 77 % (31-73) Lymphocytes (%) (Auto) 12 % (24-48) Monocytes (%) (Auto) 11 % (0-9) Eosinophils (%) (Auto) 0 % (0-3) Basophils (%) (Auto) 0 % (0-3) Neutrophils # (Auto) 10.1 x10^3/uL (1.8-7.7) Lymphocytes # (Auto) 1.6 x10^3/uL (1.0-4.8) Monocytes # (Auto) 1.4 x10^3/uL (0.0-1.1) Eosinophils # (Auto) 0.0 x10^3/uL (0.0-0.7) Basophils # (Auto) 0.0 x10^3/uL (0.0-0.2) Sodium Level 142 mmol/L (136-145) Potassium Level 4.1 mmol/L (3.5-5.1) Chloride Level 104 mmol/L (98-107) Carbon Dioxide Level 28 mmol/L (21-32) Anion Gap 10 (6-14) Blood Urea Nitrogen 21 mg/dL (7-20) Creatinine 1.4 mg/dL (0.6-1.0) Estimated GFR (Cockcroft-Gault) 35.9 Glucose Level 136 mg/dL (70-99) Calcium Level 8.7 mg/dL (8.5-10.1) Physical Exam HEENT: Neck Supple W Full Motion Chest: Symmetric LUNGS: Other (diminished bases) Heart: S1S2, RRR (SR), no gallops Abdomen: Other (soft and tender abdomen) Extremities: No Calf Tenderness, Other (1+ bilateral Le pitting edema) Neurology: alert, oriented, follow commands Assessment Assessment 1. Abdominal pain: remains to have nausea and vomiting. Defer IVF to PCP 2. Sinus tachycardia, reactive. physiologic with extracardiac issues. Maint aining SR, no arrhythmias 3. Mild acute diastolic CHF: compensated. no need for lasix at this time. Will obtain outpt TTE when recovered from covid-19 4. HTN: Controlled. continue current BP regimen. Resume home po metoprolol when able to take PO 5. Possible pneumonia 6. Covid19 7. Mild YA with mild hypernatremia Justicifation of Admission Dx: Justifications for Admission: Justification of Admission Dx: Yes KY RUIZ APRN Oct 13, 2021 10:52
--- NOTE | 2021-10-13 10:54 | NUR ---
SW following. Discussed with RN, pt accepted at [facility] - however pt's Rapid COVID test came back positive. Awaiting repeat PCR to determine options. SW spoke with pt, she does not want to go to [facility] if PCR is positive, she would rather go home with [facility]. Awaiting COVID result. DIANA will continue to follow.
[2021-10-13 11:00] VITALS: BP 122/61
--- NOTE | 2021-10-13 11:05 | NUR ---
Notified Arleth Mckeon APRN that Gastric empting test will not be able to be done due to patient having COVID.
--- NOTE | 2021-10-13 12:01 | NUR ---
I have read the assessment documentation by SN Tonja and concur. Erica King RN [facility]
--- NOTE | 2021-10-13 12:23 | PDOC ---
[facility] PROGRESS NOTE Date of Service DOS: DATE: 10/13/21 TIME: 12:22 Chief Complaint Chief Complaint COPD Severe debility Effusions Severe protein malnutrition Gastroenteritis Bilateral atelectasis, possible consolidations concerning for hospital-acquired pneumonia acute on chronic abdominal pain s/p ileostomy and take down, last seen here in 2018 History of Present Illness History of Present Illness 10/13 still havign a lot of nausea and pain, did eat well yesteday, but reports cannot eat at all today, "feels terrible" : discussed with GI consult, try diet again if able 10/12/2021 No acute events overnight. Patient seen examined bedside, resting comfortably will attempt to advance diet today to GI soft. No surgical plans at this time. AF and VSS. Patient's chart, labs, images were reviewed and discussed with RN 10/12/2019 Patient seen and examined Discussed with RN Chart reviewed 10/10/2021 No acute events overnight. Patient seen examined bedside. No more nausea or vomiting and still having stooling. Low-grade fever of 99.5. Continue with empiric IV antibiotics for presumed pneumonia. Will repeat chest x-ray in the morning and repeat labs. Patient's chart, labs, images were reviewed and discussed with RN 10/09/2021 No acute events tonight. Patient seen examined bedside. T-max of 99.3. Still having vomiting but seen on commode this morning with lots of loose stool. Surgery has recommended cardiology and pulmonary to evaluate patient for shortness of breath. Chest x-ray yesterday showing bilateral basilar opacities. Will initiate IV antibiotic for pneumonia. Patient's chart, labs, images were reviewed and discussed with RN 10/08/21 No acute events overnight. Patient seen examined bedside. AF and VSS. Patient has no vomiting episodes in the last 24 hours. Pending small bowel follow- through ordered by sterile surgery. Patient is currently refusing NG tube placement. Patient also complains some shortness of breath with nurse reporting audible wheezing. I do see wheezing I do not hear any obvious coarse crackles. Checks x-ray has been ordered. I have reduced her fluids to 50 cc/h of NS and ordered DuoNebs as needed. 10/07/2021 No acute events overnight. Patient continues to have vomiting episodes last night and this morning. Abdomen is distended. Continues to have diffuse abdominal pains. Patient may need NG tube despite the normal-appearing KUB.. Will defer this decision with surgery. KUB obtained showing nonobstructive bowel gas pattern. No gastric distention. Patient's chart, labs, images were reviewed and discussed with RN 10/06/2021 No acute events overnight. Patient seen examined bedside. AF and VSS. Patient had vomiting episode after morphine was given. She continues to have bilious vomiting. Abdominal x-ray shows nonobstructive bowel gas pattern. No signs of obvious obstruction. Abdomen is distended and firm. Diffuse tenderness. No bowel movement since Tuesday. Not passing flatus. Instructed patient to maintain upright position as much as possible and out of bed to chair 3 times daily. GI and surgery following. Appreciate their recommendations. Patient's chart, labs, images were reviewed and discussed with RN 10/05 Patient evaluated examined at bedside. Says she still having some abdominal pain. Surgery GI following. Continue antibiotics. Stool softener added today. Symptomatic treatment. Discussed with RN. 10/04 Patient eval and examined at bedside. Resting in bed saying abdominal pain was a little improved. No nausea vomiting diarrhea. Continue empiric abx. Gi consulted. Discussed wtih bedside RN. Vitals/I&O Vitals/I&O: Vital Signs Date Time Temp Pulse Resp B/P (MAP) Pulse Ox O2 Delivery O2 Flow Rate FiO2 10/13/21 08:46 90 136/95 10/13/21 08:15 Room Air 10/13/21 07:00 98.2 19 95 1.0 98.2 I & O 10/12/21 10/12/21 10/13/21 14:59 22:59 06:59 Intake Total 360 ml 720 ml Output Total 560 ml 1000 ml Balance -200 ml 720 ml -1000 ml Physical Exam General: mild distress Heart: Regular rate Lungs: Clear Abdomen: Normal bowel sounds Extremities: No cyanosis, Other (1+ bilateral Le pitting edema) Skin: No breakdown, No significant lesion Labs Labs: Laboratory Tests Test 10/12/21 16:50 10/13/21 07:00 SARS-CoV-2 Antigen (Rapid) Positive (NEGATIVE) White Blood Count 13.2 x10^3/uL (4.0-11.0) Red Blood Count 2.96 x10^6/uL (3.50-5.40) Hemoglobin 9.3 g/dL (12.0-15.5) Hematocrit 28.8 % (36.0-47.0) Mean Corpuscular Volume 97 fL (79-100) Mean Corpuscular Hemoglobin 31 pg (25-35) Mean Corpuscular Hemoglobin Concent 32 g/dL (31-37) Red Cell Distribution Width 14.7 % (11.5-14.5) Platelet Count 540 x10^3/uL (140-400) Neutrophils (%) (Auto) 77 % (31-73) Lymphocytes (%) (Auto) 12 % (24-48) Monocytes (%) (Auto) 11 % (0-9) Eosinophils (%) (Auto) 0 % (0-3) Basophils (%) (Auto) 0 % (0-3) Neutrophils # (Auto) 10.1 x10^3/uL (1.8-7.7) Lymphocytes # (Auto) 1.6 x10^3/uL (1.0-4.8) Monocytes # (Auto) 1.4 x10^3/uL (0.0-1.1) Eosinophils # (Auto) 0.0 x10^3/uL (0.0-0.7) Basophils # (Auto) 0.0 x10^3/uL (0.0-0.2) Sodium Level 142 mmol/L (136-145) Potassium Level 4.1 mmol/L (3.5-5.1) Chloride Level 104 mmol/L (98-107) Carbon Dioxide Level 28 mmol/L (21-32) Anion Gap 10 (6-14) Blood Urea Nitrogen 21 mg/dL (7-20) Creatinine 1.4 mg/dL (0.6-1.0) Estimated GFR (Cockcroft-Gault) 35.9 Glucose Level 136 mg/dL (70-99) Calcium Level 8.7 mg/dL (8.5-10.1) Assessment and Plan Assessmemt and Plan Problems Medical Problems: (1) Abdominal fluid collection Status: Acute (2) Abdominal pain Status: Acute Comment Review of Relevant I have reviewed the following items mariusz (where applicable) has been applied. Justifications for Admission Other Justification DEEPTHI VALDEZ MD Oct 13, 2021 12:23
[2021-10-13 15:00] VITALS: BP 146/67
--- NOTE | 2021-10-13 16:32 | PDOC ---
SURGICAL PROGRESS NOTE DATE: 10/13/21 TIME: 16:30 Subjective Pt with c/o cont N/V although still having stools, periumbilical abd pain Vital Signs Vital Signs Date Time Temp Pulse Resp B/P (MAP) Pulse Ox O2 Delivery O2 Flow Rate FiO2 10/13/21 15:00 98.1 102 18 146/67 (93) 90 Nasal Cannula 1.0 98.1 I&O Intake and Output 10/13/21 07:00 Intake Total 1080 ml Output Total 1560 ml Balance -480 ml Intake Oral 1080 ml Output Urine Total 560 ml Urine/Stool Mix 700 ml Emesis 300 ml # Voids 3 # Bowel Movements 2 General: Alert, Oriented X3, Cooperative, mild distress Abdomen: Soft, Other (some distention) Labs Laboratory Tests Test 10/12/21 04:55 10/12/21 16:50 10/13/21 07:00 White Blood Count 11.5 x10^3/uL (4.0-11.0) 13.2 x10^3/uL (4.0-11.0) Red Blood Count 2.79 x10^6/uL (3.50-5.40) 2.96 x10^6/uL (3.50-5.40) Hemoglobin 8.9 g/dL (12.0-15.5) 9.3 g/dL (12.0-15.5) Hematocrit 28.0 % (36.0-47.0) 28.8 % (36.0-47.0) Mean Corpuscular Volume 100 fL (79-100) 97 fL (79-100) Mean Corpuscular Hemoglobin 32 pg (25-35) 31 pg (25-35) Mean Corpuscular Hemoglobin Concent 32 g/dL (31-37) 32 g/dL (31-37) Red Cell Distribution Width 14.7 % (11.5-14.5) 14.7 % (11.5-14.5) Platelet Count 504 x10^3/uL (140-400) 540 x10^3/uL (140-400) Neutrophils (%) (Auto) 71 % (31-73) 77 % (31-73) Lymphocytes (%) (Auto) 15 % (24-48) 12 % (24-48) Monocytes (%) (Auto) 12 % (0-9) 11 % (0-9) Eosinophils (%) (Auto) 1 % (0-3) 0 % (0-3) Basophils (%) (Auto) 0 % (0-3) 0 % (0-3) Neutrophils # (Auto) 8.2 x10^3/uL (1.8-7.7) 10.1 x10^3/uL (1.8-7.7) Lymphocytes # (Auto) 1.8 x10^3/uL (1.0-4.8) 1.6 x10^3/uL (1.0-4.8) Monocytes # (Auto) 1.4 x10^3/uL (0.0-1.1) 1.4 x10^3/uL (0.0-1.1) Eosinophils # (Auto) 0.1 x10^3/uL (0.0-0.7) 0.0 x10^3/uL (0.0-0.7) Basophils # (Auto) 0.0 x10^3/uL (0.0-0.2) 0.0 x10^3/uL (0.0-0.2) Sodium Level 143 mmol/L (136-145) 142 mmol/L (136-145) Potassium Level 3.5 mmol/L (3.5-5.1) 4.1 mmol/L (3.5-5.1) Chloride Level 104 mmol/L (98-107) 104 mmol/L (98-107) Carbon Dioxide Level 28 mmol/L (21-32) 28 mmol/L (21-32) Anion Gap 11 (6-14) 10 (6-14) Blood Urea Nitrogen 16 mg/dL (7-20) 21 mg/dL (7-20) Creatinine 1.4 mg/dL (0.6-1.0) 1.4 mg/dL (0.6-1.0) Estimated GFR (Cockcroft-Gault) 35.9 35.9 Glucose Level 94 mg/dL (70-99) 136 mg/dL (70-99) Calcium Level 8.8 mg/dL (8.5-10.1) 8.7 mg/dL (8.5-10.1) Magnesium Level 2.2 mg/dL (1.8-2.4) Coronavirus (COVID-19)(PCR) Not detected (NOT DETECTD) SARS-CoV-2 Antigen (Rapid) Positive (NEGATIVE) Laboratory Tests Test 10/12/21 16:50 10/13/21 07:00 Coronavirus (COVID-19)(PCR) Not detected (NOT DETECTD) SARS-CoV-2 Antigen (Rapid) Positive (NEGATIVE) White Blood Count 13.2 x10^3/uL (4.0-11.0) Red Blood Count 2.96 x10^6/uL (3.50-5.40) Hemoglobin 9.3 g/dL (12.0-15.5) Hematocrit 28.8 % (36.0-47.0) Mean Corpuscular Volume 97 fL (79-100) Mean Corpuscular Hemoglobin 31 pg (25-35) Mean Corpuscular Hemoglobin Concent 32 g/dL (31-37) Red Cell Distribution Width 14.7 % (11.5-14.5) Platelet Count 540 x10^3/uL (140-400) Neutrophils (%) (Auto) 77 % (31-73) Lymphocytes (%) (Auto) 12 % (24-48) Monocytes (%) (Auto) 11 % (0-9) Eosinophils (%) (Auto) 0 % (0-3) Basophils (%) (Auto) 0 % (0-3) Neutrophils # (Auto) 10.1 x10^3/uL (1.8-7.7) Lymphocytes # (Auto) 1.6 x10^3/uL (1.0-4.8) Monocytes # (Auto) 1.4 x10^3/uL (0.0-1.1) Eosinophils # (Auto) 0.0 x10^3/uL (0.0-0.7) Basophils # (Auto) 0.0 x10^3/uL (0.0-0.2) Sodium Level 142 mmol/L (136-145) Potassium Level 4.1 mmol/L (3.5-5.1) Chloride Level 104 mmol/L (98-107) Carbon Dioxide Level 28 mmol/L (21-32) Anion Gap 10 (6-14) Blood Urea Nitrogen 21 mg/dL (7-20) Creatinine 1.4 mg/dL (0.6-1.0) Estimated GFR (Cockcroft-Gault) 35.9 Glucose Level 136 mg/dL (70-99) Calcium Level 8.7 mg/dL (8.5-10.1) Problem List Problems Medical Problems: (1) Abdominal fluid collection Status: Acute (2) Abdominal pain Status: Acute Assessment/Plan N/V, unknown etiology cont w/u per GI no surgical plans. Justicifation of Admission Dx: Justifications for Admission: Justification of Admission Dx: Yes ZEYNEP GARCIA MD Oct 13, 2021 16:32
[2021-10-13 19:00] VITALS: BP 134/61
[2021-10-13] MEDS: PROCHLORPERAZINE 10 MG/2 ML VIAL. IV PRN (20:09)
[2021-10-13] MEDS: AMITRIPTYLINE HCL 10 MG TABLET. PO SCH (20:09)
[2021-10-13 23:00] VITALS: BP 134/61
[2021-10-14 03:00] VITALS: BP 138/61
[2021-10-14 06:42] LABS: BASO % 0 % (0-3); EOS # 0.1 x10^3/uL (0.0-0.7); EOS % 1 % (0-3); HEMATOCRIT 29.6 % (36.0-47.0); HEMOGLOBIN 9.8 g/dL (12.0-15.5); LYMPH # 1.7 x10^3/uL (1.0-4.8); LYMPH % 17 % (24-48); MEAN CORPUSCULAR HEMOGLOBIN 33 pg (25-35); MEAN CORPUSCULAR HGB CONC 33 g/dL (31-37); MEAN CORPUSCULAR VOLUME 98 fL (79-100); MONO % 10 % (0-9); NEUT # 7.5 x10^3/uL (1.8-7.7); NEUT % 73 % (31-73); PLATELET COUNT 509 x10^3/uL (140-400); RED BLOOD COUNT 3.02 x10^6/uL (3.50-5.40); RED CELL DISTRIBUTION WIDTH 14.8 % (11.5-14.5); WHITE BLOOD COUNT 10.3 x10^3/uL (4.0-11.0)
[2021-10-14 06:52] LABS: CALCIUM 8.7 mg/dL (8.5-10.1); CREATININE 1.4 mg/dL (0.6-1.0); GFR 35.9
[2021-10-14 07:00] VITALS: BP 152/68
[2021-10-14] MEDS: LACTOBACILLUS RHAMNOSUS GG 1 CAPSULE. PO SCH (08:06)
[2021-10-14] MEDS: PANTOPRAZOLE IV PUSH 40 MG VIAL. IVP SCH (08:06)
[2021-10-14] MEDS: METOPROLOL TART IMMED RELEASE 25 MG TABLET. PO SCH (08:09)
[2021-10-14] MEDS: CHOLECALCIFEROL (VITAMIN D3) 1,000 UNIT TABLET PO SCH (08:09)
--- NOTE | 2021-10-14 10:12 | PDOC ---
Date of Service: DATE: 10/14/21 TIME: 10:07 Subjective: Subjective: "I feel like hell." Last stooled yesterday - "that finally stopped." Last vomited yesterday afternoon after abdominal exam. Ate a few bites of breakfast this morning - no vomiting yet. Objective: Vital Signs: Vital Signs Date Time Temp Pulse Resp B/P (MAP) Pulse Ox O2 Delivery O2 Flow Rate FiO2 10/14/21 08:22 Nasal Cannula 1.0 10/14/21 08:10 95 152/68 10/14/21 07:00 98.0 18 97 98.0 Labs: Laboratory Tests Test 10/14/21 06:00 White Blood Count 10.3 x10^3/uL Red Blood Count 3.02 x10^6/uL Hemoglobin 9.8 g/dL Hematocrit 29.6 % Mean Corpuscular Volume 98 fL Mean Corpuscular Hemoglobin 33 pg Mean Corpuscular Hemoglobin Concent 33 g/dL Red Cell Distribution Width 14.8 % Platelet Count 509 x10^3/uL Neutrophils (%) (Auto) 73 % Lymphocytes (%) (Auto) 17 % Monocytes (%) (Auto) 10 % Eosinophils (%) (Auto) 1 % Basophils (%) (Auto) 0 % Neutrophils # (Auto) 7.5 x10^3/uL Lymphocytes # (Auto) 1.7 x10^3/uL Monocytes # (Auto) 1.0 x10^3/uL Eosinophils # (Auto) 0.1 x10^3/uL Basophils # (Auto) 0.0 x10^3/uL Sodium Level 141 mmol/L Potassium Level 4.0 mmol/L Chloride Level 103 mmol/L Carbon Dioxide Level 30 mmol/L Anion Gap 8 Blood Urea Nitrogen 24 mg/dL Creatinine 1.4 mg/dL Estimated GFR (Cockcroft-Gault) 35.9 Glucose Level 101 mg/dL Calcium Level 8.7 mg/dL PE: GEN: NAD - was talking on phone when I entered, then sat on edge of bed LUNGS: clear anteriorly HEART: RRR ABD: quiet, right periumbilical discomfort (?muscular) to light touch NEURO/PSYCH: A & O 3 A/P: Rapid COVID + PCR negative N/v, abdominal soreness - unable to proceed w/ gastric emptying study as inpt ACD/JESÚS - stable Cholelithiasis -- ?rapid COVID falsely positive D/w Dr. Puente - consider trial of e-mycin for suspected delayed gastric emptying. Pt would like to hold off for now. D/w nurse who will update me today if vomiting recurs. Outpt EGD and GES. Continue PPI - change to PO as able. Justicifation of Admission Dx: Justifications for Admission: Justification of Admission Dx: Yes IRASEMA MCCARTY Oct 14, 2021 10:12
--- NOTE | 2021-10-14 10:26 | PDOC ---
PULMONARY PROGRESS NOTES DATE: 10/14/21 TIME: 10:24 Subjective Patient is resting comfortably on 1 L nasal cannula, denies any shortness of breath, cough, reports feeling better today and decreased nausea, vomiting and diarrhea. Vitals Vital Signs Date Time Temp Pulse Resp B/P (MAP) Pulse Ox O2 Delivery O2 Flow Rate FiO2 10/14/21 08:22 Nasal Cannula 1.0 10/14/21 08:10 95 152/68 10/14/21 07:00 98.0 18 97 98.0 ROS: No Nausea, No Chest Pain, No Abdominal Pain, No Increase Cough General: Alert, Oriented X4 Lungs: Clear Abdomen: Soft, Non-tender Neuro Exam: Alert, Oriented Extremities: Other Skin: Warm, Dry Labs Laboratory Tests Test 10/12/21 16:50 10/13/21 07:00 10/14/21 06:00 Coronavirus (COVID-19)(PCR) Not detected (NOT DETECTD) SARS-CoV-2 Antigen (Rapid) Positive (NEGATIVE) White Blood Count 13.2 x10^3/uL (4.0-11.0) 10.3 x10^3/uL (4.0-11.0) Red Blood Count 2.96 x10^6/uL (3.50-5.40) 3.02 x10^6/uL (3.50-5.40) Hemoglobin 9.3 g/dL (12.0-15.5) 9.8 g/dL (12.0-15.5) Hematocrit 28.8 % (36.0-47.0) 29.6 % (36.0-47.0) Mean Corpuscular Volume 97 fL (79-100) 98 fL (79-100) Mean Corpuscular Hemoglobin 31 pg (25-35) 33 pg (25-35) Mean Corpuscular Hemoglobin Concent 32 g/dL (31-37) 33 g/dL (31-37) Red Cell Distribution Width 14.7 % (11.5-14.5) 14.8 % (11.5-14.5) Platelet Count 540 x10^3/uL (140-400) 509 x10^3/uL (140-400) Neutrophils (%) (Auto) 77 % (31-73) 73 % (31-73) Lymphocytes (%) (Auto) 12 % (24-48) 17 % (24-48) Monocytes (%) (Auto) 11 % (0-9) 10 % (0-9) Eosinophils (%) (Auto) 0 % (0-3) 1 % (0-3) Basophils (%) (Auto) 0 % (0-3) 0 % (0-3) Neutrophils # (Auto) 10.1 x10^3/uL (1.8-7.7) 7.5 x10^3/uL (1.8-7.7) Lymphocytes # (Auto) 1.6 x10^3/uL (1.0-4.8) 1.7 x10^3/uL (1.0-4.8) Monocytes # (Auto) 1.4 x10^3/uL (0.0-1.1) 1.0 x10^3/uL (0.0-1.1) Eosinophils # (Auto) 0.0 x10^3/uL (0.0-0.7) 0.1 x10^3/uL (0.0-0.7) Basophils # (Auto) 0.0 x10^3/uL (0.0-0.2) 0.0 x10^3/uL (0.0-0.2) Sodium Level 142 mmol/L (136-145) 141 mmol/L (136-145) Potassium Level 4.1 mmol/L (3.5-5.1) 4.0 mmol/L (3.5-5.1) Chloride Level 104 mmol/L (98-107) 103 mmol/L (98-107) Carbon Dioxide Level 28 mmol/L (21-32) 30 mmol/L (21-32) Anion Gap 10 (6-14) 8 (6-14) Blood Urea Nitrogen 21 mg/dL (7-20) 24 mg/dL (7-20) Creatinine 1.4 mg/dL (0.6-1.0) 1.4 mg/dL (0.6-1.0) Estimated GFR (Cockcroft-Gault) 35.9 35.9 Glucose Level 136 mg/dL (70-99) 101 mg/dL (70-99) Calcium Level 8.7 mg/dL (8.5-10.1) 8.7 mg/dL (8.5-10.1) Laboratory Tests Test 10/14/21 06:00 White Blood Count 10.3 x10^3/uL (4.0-11.0) Red Blood Count 3.02 x10^6/uL (3.50-5.40) Hemoglobin 9.8 g/dL (12.0-15.5) Hematocrit 29.6 % (36.0-47.0) Mean Corpuscular Volume 98 fL (79-100) Mean Corpuscular Hemoglobin 33 pg (25-35) Mean Corpuscular Hemoglobin Concent 33 g/dL (31-37) Red Cell Distribution Width 14.8 % (11.5-14.5) Platelet Count 509 x10^3/uL (140-400) Neutrophils (%) (Auto) 73 % (31-73) Lymphocytes (%) (Auto) 17 % (24-48) Monocytes (%) (Auto) 10 % (0-9) Eosinophils (%) (Auto) 1 % (0-3) Basophils (%) (Auto) 0 % (0-3) Neutrophils # (Auto) 7.5 x10^3/uL (1.8-7.7) Lymphocytes # (Auto) 1.7 x10^3/uL (1.0-4.8) Monocytes # (Auto) 1.0 x10^3/uL (0.0-1.1) Eosinophils # (Auto) 0.1 x10^3/uL (0.0-0.7) Basophils # (Auto) 0.0 x10^3/uL (0.0-0.2) Sodium Level 141 mmol/L (136-145) Potassium Level 4.0 mmol/L (3.5-5.1) Chloride Level 103 mmol/L (98-107) Carbon Dioxide Level 30 mmol/L (21-32) Anion Gap 8 (6-14) Blood Urea Nitrogen 24 mg/dL (7-20) Creatinine 1.4 mg/dL (0.6-1.0) Estimated GFR (Cockcroft-Gault) 35.9 Glucose Level 101 mg/dL (70-99) Calcium Level 8.7 mg/dL (8.5-10.1) Medications Active Scripts Medications Dose Route/Sig Max Daily Dose Days Date Category Dose Instructions Stool Softener (Docusate Sodium) 50 Mg Capsule 1 Cap PO DAILY PRN 30 10/04/21 Reported Tylenol (Acetaminophen) 325 Mg Tablet 1-2 Tab PO HS 10/04/21 Reported Perphen-Amitrip 2 Mg-10 Mg Tab (Perphenazine/Amitriptyline Hcl) 1 Each Tablet 1 Tab PO QHS 10/04/21 Reported Methotrexate (Methotrexate Sodium) 2.5 Mg Tablet 10 Tab PO Tuesday10/04/21 Reported Folic Acid 0.8 Mg Capsule 1 Cap PO DAILY 30 10/04/21 Reported Vitamin D3 (Vitamin D) 25 Mcg Tablet 25 Mcg PO DAILY 10/04/21 Reported 1,000 UNITS = 25 MCG Amlodipine Besylate 2.5 Mg Tablet 2.5 Mg PO DAILY 02/07/19 Reported Vit C-Quyen Hips 500 mg Chew Tb (Ascorbic Acid/Ascorbate Sodium) 500 Mg Tab.chew 500 Mg PO DAILY 02/07/19 Reported Probiotic Acidophilus (Lactobacillus Acidophilus) 1 Each Tablet 1 Each PO DAILY 02/07/19 Reported Metoprolol Tartrate 50 Mg Tablet 50 Mg PO BID 02/07/19 Reported Omeprazole 20 Mg Tablet.dr 20 Mg PO DAILY 02/07/19 Reported Multivitamins (Multivitamin) 1 Each Tablet 1 Tab PO DAILY 12/20/17 Reported Impression . IMPRESSION: 1. Mild dyspnea. This is likely related to development of bibasilar pleural effusion. She has been receiving IV fluids. She has low albumin and likely low oncotic pressure contributing to pleural effusions, responded to Lasix. no evidence of pneumonia.--improved 2. Underlying tobaccoism for 40+ years. She likely has underlying COPD. She currently does not have any exacerbation of chronic obstructive pulmonary disease. 3. Gastroenteritis to be managed by GI. Plan . Updated 10/14/2021 Since respiratory status is compensated Continue supplemental oxygen, currently on 1 L nasal cannula, titrate to keep sats greater than 92% Bronchodilators as needed Follow GI recommendations Patient would benefit from outpatient follow-up for pulmonary function testing DVT/GI prophylaxis Discussed with RN and patient We will see patient on a as needed basis, we are available for any questions thank you for this consultation RECOMMENDATIONS: 1. Pulmonary status stable. At this point, monitor for any future increasing dyspnea. 2. Continue p.r.n. Lasix. 3. P.r.n. oxygen. 4. Follow GI recommendations. 5. We will be available for any further recommendations. 6. Would recommend PFTs as an outpatient. 7. Continue present p.r.n. bronchodilators. 8. We will be available for any further recommendations. We will see her p.r.n. ZUNILDA RANGEL MD Oct 14, 2021 10:26
[2021-10-14] MEDS ORDERED: DICY10CA3 PO (10:29)
[2021-10-14] MEDS ORDERED: ONDA4TAB12 PO (10:29)
--- NOTE | 2021-10-14 10:31 | SNU/HH DC ---
DISCHARGE ORDERS DISCHARGE INFORMATION: DISCHARGE DATE: Oct 14, 2021 FINAL DIAGNOSIS acute on chronic abdominal pain, nausea, poor po intake s/p ileostomy and take down, last seen here in 2019 COPD weakness and debility Severe protein malnutrition Gastroenteritis Bilateral atelectasis, possible consolidations Problems Medical Problems: (1) Abdominal fluid collection Status: Acute (2) Abdominal pain Status: Acute CONDITION ON DISCHARGE: Stable CODE STATUS: Code Status: Full RESIDENTIAL: SNF STAY <30 DAYS: Yes HOSPICE: HOSPICE: No POST DISCHARGE ORDERS: ACTIVITY ORDERS: Activity as tolerated WEIGHT BEARING STATUS: Full weight bearing, As tolerated DIET AFTER DISCHARGE: Regular WOUND/INCISION CARE: May get incision wet TREATMENT/EQUIPMENT ORDERS: ADAPTIVE EQUIPMENT NEEDED: Front wheeled walker Physical Therapy For: Evalulation/Treatment Occupational Therapy For: Evaluation/Treatment DISCHARGE MEDICATIONS: Home Meds Active Scripts Ondansetron (ONDANSETRON ODT) 4 Mg Tab.rapdis, 1 TAB PO PRN Q6-8HRS for nausea, #30 TAB Prov:DEEPTHI VALDEZ MD 10/14/21 Dicyclomine Hcl (DICYCLOMINE HCL) 10 Mg Capsule, 10 MG PO PRN QID PRN for ABDOMINAL CRAMPS, #30 CAP Prov:DEEPTHI VALDEZ MD 10/14/21 Reported Medications Docusate Sodium (STOOL SOFTENER) 50 Mg Capsule, 1 CAP PO DAILY PRN for CONSTIPATION for 30 Days, #30 CAP 0 Refills 10/04/21 Acetaminophen (TYLENOL) 325 Mg Tablet, 1-2 TAB PO HS for pain, #60 TAB 2 Refills 10/04/21 Perphenazine/Amitriptyline Hcl (PERPHEN-AMITRIP 2 MG-10 MG TAB) 1 Each Tablet, 1 TAB PO QHS for MOOD STABILIZER, TAB 10/04/21 Methotrexate Sodium (METHOTREXATE) 2.5 Mg Tablet, 10 TAB PO tuesday for rheumatoid arthritis, #32 TAB 2 Refills 10/04/21 Folic Acid (Folic Acid) 0.8 Mg Capsule, 1 CAP PO DAILY for supplelmelnt for 30 Days, #30 CAP 0 Refills 10/04/21 Cholecalciferol (Vitamin D3) (Vitamin D3 ) 25 Mcg Tablet, 25 MCG PO DAILY for SUPPLEMENT, TAB 1,000 UNITS = 25 MCG 10/04/21 Amlodipine Besylate (AMLODIPINE BESYLATE) 2.5 Mg Tablet, 2.5 MG PO DAILY for BLO OD PRESSURE, TAB 02/07/19 Ascorbic Acid/Ascorbate Sodium (Vit C-Quyen Hips 500 mg Chew Tb) 500 Mg Tab.chew, 500 MG PO DAILY for VIT, TAB.CHEW 02/07/19 Lactobacillus Acidophilus (Probiotic Acidophilus) 1 Each Tablet, 1 EACH PO DAILY for DIGESTIVE, TAB 02/07/19 Metoprolol Tartrate (METOPROLOL TARTRATE) 50 Mg Tablet, 50 MG PO BID for FOR HYPERTENSION, #60 TAB 0 Refills 02/07/19 Omeprazole (OMEPRAZOLE) 20 Mg Tablet.dr, 20 MG PO DAILY for REFLUX, TAB 02/07/19 Multivitamin (MULTIVITAMINS) 1 Each Tablet, 1 TAB PO DAILY, #30 TAB 2 Refills 12/20/17 DEEPTHI VALDEZ MD Oct 14, 2021 10:31
--- NOTE | 2021-10-14 10:34 | PDOC3 ---
Discharge Summary Visit Information Date of Admission: Oct 03, 2021 Date of Discharge: Oct 14, 2021 Final Diagnosis acute on chronic abdominal pain, nausea, poor po intake s/p ileostomy and take down, last seen here in 2019 COPD weakness and debility Severe protein malnutrition Gastroenteritis Bilateral atelectasis, possible consolidations Problems Medical Problems: (1) Abdominal fluid collection Status: Acute (2) Abdominal pain Status: Acute Brief Hospital Course Allergies Allergies Coded Allergies Type Severity Reaction Last Updated Verified adhesive Allergy Intermediate Rash 10/03/21 Yes Vital Signs Vital Signs Date Time Temp Pulse Resp B/P (MAP) Pulse Ox O2 Delivery O2 Flow Rate FiO2 10/14/21 08:22 Nasal Cannula 1.0 10/14/21 08:10 95 152/68 10/14/21 07:00 98.0 18 97 98.0 Lab Results Laboratory Tests Test 10/12/21 16:50 10/13/21 07:00 10/14/21 06:00 Coronavirus (COVID-19)(PCR) Not detected (NOT DETECTD) SARS-CoV-2 Antigen (Rapid) Positive (NEGATIVE) White Blood Count 13.2 x10^3/uL (4.0-11.0) 10.3 x10^3/uL (4.0-11.0) Red Blood Count 2.96 x10^6/uL (3.50-5.40) 3.02 x10^6/uL (3.50-5.40) Hemoglobin 9.3 g/dL (12.0-15.5) 9.8 g/dL (12.0-15.5) Hematocrit 28.8 % (36.0-47.0) 29.6 % (36.0-47.0) Mean Corpuscular Volume 97 fL (79-100) 98 fL (79-100) Mean Corpuscular Hemoglobin 31 pg (25-35) 33 pg (25-35) Mean Corpuscular Hemoglobin Concent 32 g/dL (31-37) 33 g/dL (31-37) Red Cell Distribution Width 14.7 % (11.5-14.5) 14.8 % (11.5-14.5) Platelet Count 540 x10^3/uL (140-400) 509 x10^3/uL (140-400) Neutrophils (%) (Auto) 77 % (31-73) 73 % (31-73) Lymphocytes (%) (Auto) 12 % (24-48) 17 % (24-48) Monocytes (%) (Auto) 11 % (0-9) 10 % (0-9) Eosinophils (%) (Auto) 0 % (0-3) 1 % (0-3) Basophils (%) (Auto) 0 % (0-3) 0 % (0-3) Neutrophils # (Auto) 10.1 x10^3/uL (1.8-7.7) 7.5 x10^3/uL (1.8-7.7) Lymphocytes # (Auto) 1.6 x10^3/uL (1.0-4.8) 1.7 x10^3/uL (1.0-4.8) Monocytes # (Auto) 1.4 x10^3/uL (0.0-1.1) 1.0 x10^3/uL (0.0-1.1) Eosinophils # (Auto) 0.0 x10^3/uL (0.0-0.7) 0.1 x10^3/uL (0.0-0.7) Basophils # (Auto) 0.0 x10^3/uL (0.0-0.2) 0.0 x10^3/uL (0.0-0.2) Sodium Level 142 mmol/L (136-145) 141 mmol/L (136-145) Potassium Level 4.1 mmol/L (3.5-5.1) 4.0 mmol/L (3.5-5.1) Chloride Level 104 mmol/L (98-107) 103 mmol/L (98-107) Carbon Dioxide Level 28 mmol/L (21-32) 30 mmol/L (21-32) Anion Gap 10 (6-14) 8 (6-14) Blood Urea Nitrogen 21 mg/dL (7-20) 24 mg/dL (7-20) Creatinine 1.4 mg/dL (0.6-1.0) 1.4 mg/dL (0.6-1.0) Estimated GFR (Cockcroft-Gault) 35.9 35.9 Glucose Level 136 mg/dL (70-99) 101 mg/dL (70-99) Calcium Level 8.7 mg/dL (8.5-10.1) 8.7 mg/dL (8.5-10.1) Laboratory Tests Test 10/14/21 06:00 White Blood Count 10.3 x10^3/uL (4.0-11.0) Red Blood Count 3.02 x10^6/uL (3.50-5.40) Hemoglobin 9.8 g/dL (12.0-15.5) Hematocrit 29.6 % (36.0-47.0) Mean Corpuscular Volume 98 fL (79-100) Mean Corpuscular Hemoglobin 33 pg (25-35) Mean Corpuscular Hemoglobin Concent 33 g/dL (31-37) Red Cell Distribution Width 14.8 % (11.5-14.5) Platelet Count 509 x10^3/uL (140-400) Neutrophils (%) (Auto) 73 % (31-73) Lymphocytes (%) (Auto) 17 % (24-48) Monocytes (%) (Auto) 10 % (0-9) Eosinophils (%) (Auto) 1 % (0-3) Basophils (%) (Auto) 0 % (0-3) Neutrophils # (Auto) 7.5 x10^3/uL (1.8-7.7) Lymphocytes # (Auto) 1.7 x10^3/uL (1.0-4.8) Monocytes # (Auto) 1.0 x10^3/uL (0.0-1.1) Eosinophils # (Auto) 0.1 x10^3/uL (0.0-0.7) Basophils # (Auto) 0.0 x10^3/uL (0.0-0.2) Sodium Level 141 mmol/L (136-145) Potassium Level 4.0 mmol/L (3.5-5.1) Chloride Level 103 mmol/L (98-107) Carbon Dioxide Level 30 mmol/L (21-32) Anion Gap 8 (6-14) Blood Urea Nitrogen 24 mg/dL (7-20) Creatinine 1.4 mg/dL (0.6-1.0) Estimated GFR (Cockcroft-Gault) 35.9 Glucose Level 101 mg/dL (70-99) Calcium Level 8.7 mg/dL (8.5-10.1) Brief Hospital Course Ms. Iglesias is a 81 old female, admit with shortness of breath, abd pain, Nausea - no vomiting, SBS without obstruction anemia stable, and H/o diverticular disease s/p resection, h/o constipation Cholelithiasis COVID negative chronic CHF, HTN Discharge Information Condition at Discharge: Improved Follow Up: Weeks Disposition/Orders: D/C to Another Facility Scheduled Acetaminophen (Tylenol) 325 Mg Tablet, 1-2 TAB PO HS for pain, #60 Ref 2 (Reported) Entered as Reported by: DARI WOLFF on 10/04/21515 Last Action: Reviewed on 10/04/21516 by DARI WOLFF Amlodipine Besylate (Amlodipine Besylate) 2.5 Mg Tablet, 2.5 MG PO DAILY for BLOOD PRESSURE, (Reported) Entered as Reported by: RUDY NAJERA on 02/07/191334 Last Action: Converted on 10/04/211122 by YUKO FOFANA MD Ascorbic Acid/Ascorbate Sodium (Vit C-Quyen Hips 500 mg Chew Tb) 500 Mg Tab.chew, 500 MG PO DAILY for VIT, (Reported) Entered as Reported by: RUDY NAJERA on 02/07/191334 Last Action: HELD on 10/04/211122 by YUKO FOFANA MD Cholecalciferol (Vitamin D3) (Vitamin D3 ) 25 Mcg Tablet, 25 MCG PO DAILY for SUPPLEMENT, (Reported) 1,000 UNITS = 25 MCG Entered as Reported by: DARI WOLFF on 10/04/21515 Last Action: Continued on 10/04/211122 by YUKO FOFANA MD Folic Acid (Folic Acid) 0.8 Mg Capsule, 1 CAP PO DAILY for supplelmelnt for 30 Days, #30 Ref 0 (Reported) Entered as Reported by: DARI WOLFF on 10/04/21515 Last Action: HELD on 10/04/211122 by YUKO FOFANA MD Lactobacillus Acidophilus (Probiotic Acidophilus) 1 Each Tablet, 1 EACH PO DAILY for DIGESTIVE, (Reported) Entered as Reported by: RUDY NAJERA on 02/07/191334 Last Action: Converted on 10/04/211122 by YUKO FOFANA MD Methotrexate Sodium (Methotrexate) 2.5 Mg Tablet, 10 TAB PO tuesday for rheumatoid arthritis, #32 Ref 2 (Reported) Entered as Reported by: DARI WOLFF on 10/04/21515 Last Action: HELD on 10/04/211122 by YUKO FOFANA MD Metoprolol Tartrate (Metoprolol Tartrate) 50 Mg Tablet, 50 MG PO BID for FOR HYPERTENSION, #60 Ref 0 (Reported) Entered as Reported by: RUDY NAJERA on 02/07/195 Last Action: Continued on 10/04/211122 by YUKO FOFANA MD Multivitamin (Multivitamins) 1 Each Tablet, 1 TAB PO DAILY, #30 Ref 2 (Reported) Entered as Reported by: KINA HERNANDEZ on 12/20/17 0259 Last Action: HELD on 10/04/211122 by YUKO FOFANA MD Omeprazole (Omeprazole) 20 Mg Tablet.dr, 20 MG PO DAILY for REFLUX, (Reported) Entered as Reported by: RUDY NAJERA on 02/07/191334 Last Action: Converted on 10/04/211122 by YUKO FOFANA MD Ondansetron (Ondansetron Odt) 4 Mg Tab.rapdis, 1 TAB PO PRN Q6-8HRS for nausea, #30 Prescribed by: DEEPTHI VALDEZ on 10/14/21 1029 Perphenazine/Amitriptyline Hcl (Perphen-Amitrip 2 Mg-10 Mg Tab) 1 Each Tablet, 1 TAB PO QHS for MOOD STABILIZER, (Reported) Entered as Reported by: DARI WOLFF on 10/04/21515 Last Action: Converted on 10/04/211122 by YUKO FOFANA MD Scheduled PRN Dicyclomine Hcl (Dicyclomine Hcl) 10 Mg Capsule, 10 MG PO PRN QID PRN for ABDOMINAL CRAMPS, #30 Prescribed by: DEEPTHI VALDEZ on 10/14/21 1029 Docusate Sodium (Stool Softener) 50 Mg Capsule, 1 CAP PO DAILY PRN for CONSTIPATION for 30 Days, #30 Ref 0 (Reported) Entered as Reported by: DARI WOLFF on 10/04/21515 Last Action: HELD on 10/04/211122 by YUKO FOFANA MD Patient Instructions Patient Instructions to skilled > 30 min Justicifation of Admission Dx: Justifications for Admission: Justification of Admission Dx: Yes DEEPTHI VALDEZ MD Oct 14, 2021 10:34
[2021-10-14 11:00] VITALS: BP 121/46
--- NOTE | 2021-10-14 11:52 | PDOC ---
CARDIO Progress Notes Date and Time Date of Service 10/14/2021 Time of Evaluation 1140 Subjective Subjective: No Chest Pain, No shortness of breath, No Palpitations, Other (able to tolerate breakfast today, no further vomiting) Vitals Vitals Vital Signs Date Time Temp Pulse Resp B/P (MAP) Pulse Ox O2 Delivery O2 Flow Rate FiO2 10/14/21 08:22 Nasal Cannula 1.0 10/14/21 08:10 95 152/68 10/14/21 07:00 98.0 18 97 98.0 Weight Weight [ ] Input and Output Intake and Output Intake and Output 10/14/21 07:00 Intake Total 1059 ml Output Total 200 ml Balance 859 ml Intake Oral 1059 ml Output Urine Total 200 ml # Voids 2 Laboratory Labs Laboratory Tests Test 10/14/21 06:00 White Blood Count 10.3 x10^3/uL (4.0-11.0) Red Blood Count 3.02 x10^6/uL (3.50-5.40) Hemoglobin 9.8 g/dL (12.0-15.5) Hematocrit 29.6 % (36.0-47.0) Mean Corpuscular Volume 98 fL (79-100) Mean Corpuscular Hemoglobin 33 pg (25-35) Mean Corpuscular Hemoglobin Concent 33 g/dL (31-37) Red Cell Distribution Width 14.8 % (11.5-14.5) Platelet Count 509 x10^3/uL (140-400) Neutrophils (%) (Auto) 73 % (31-73) Lymphocytes (%) (Auto) 17 % (24-48) Monocytes (%) (Auto) 10 % (0-9) Eosinophils (%) (Auto) 1 % (0-3) Basophils (%) (Auto) 0 % (0-3) Neutrophils # (Auto) 7.5 x10^3/uL (1.8-7.7) Lymphocytes # (Auto) 1.7 x10^3/uL (1.0-4.8) Monocytes # (Auto) 1.0 x10^3/uL (0.0-1.1) Eosinophils # (Auto) 0.1 x10^3/uL (0.0-0.7) Basophils # (Auto) 0.0 x10^3/uL (0.0-0.2) Sodium Level 141 mmol/L (136-145) Potassium Level 4.0 mmol/L (3.5-5.1) Chloride Level 103 mmol/L (98-107) Carbon Dioxide Level 30 mmol/L (21-32) Anion Gap 8 (6-14) Blood Urea Nitrogen 24 mg/dL (7-20) Creatinine 1.4 mg/dL (0.6-1.0) Estimated GFR (Cockcroft-Gault) 35.9 Glucose Level 101 mg/dL (70-99) Calcium Level 8.7 mg/dL (8.5-10.1) Physical Exam HEENT: Neck Supple W Full Motion Chest: Symmetric LUNGS: Other (diminished bases) Heart: S1S2, RRR (SR), no gallops Abdomen: Other (soft and tender abdomen) Extremities: No Calf Tenderness, Other (1+ bilateral Le pitting edema) Neurology: alert, oriented, follow commands Assessment Assessment 1. Abdominal pain: better. per GI SNU pending today 2. Sinus tachycardia, reactive. physiologic with extracardiac issues. Maintaining SR, no arrhythmias 3. Mild acute diastolic CHF: compensated. 4. HTN: Controlled. continue current BP regimen. Resume home po metoprolol when able to take PO 5. Possible pneumonia 6. Covid19 positive on rapid but neg on PCR 7. Mild YA with mild hypernatremia: Na normalized. per PCP Justicifation of Admission Dx: Justifications for Admission: Justification of Admission Dx: Yes KY RUIZ APRN Oct 14, 2021 11:52
[2021-10-14] MEDS: ONDANSETRON PF 4 MG/2 ML VIAL. IVP PRN (13:20)
--- NOTE | 2021-10-14 14:16 | NUR ---
Discharge Note: OLI MARISCAL HACHITA Discharge instructions and discharge home medications reviewed with Liseth SCHNEIDER at [facility] and a copy given. All questions have been answered and understanding verbalized. The following instructions and handouts were given: transfer of care. Discontinued lines and drains: 20 guage left AC, tip intact. patient tolerated well. Patient discharged to [facility] via [facility] transport.
== END 2021-10-14 14:03 | DRG 391 ==
LOC: ER 15:01 → 5 NORTH 18:16
PROVIDERS: ADMIT Internal Medicine; ATTEND Internal Medicine
DX: K52.9 Noninfective gastroenteritis and colitis, unspecified (principal); K66.1 Hemoperitoneum; E43 Unspecified severe protein-calorie malnutrition; I50.33 Acute on chronic diastolic (congestive) heart failure; I13.0 Hypertensive heart and chronic kidney disease with heart failure and stage 1 through stage 4 chronic kidney disease, or unspecified chronic kidney disease; E87.0 Hyperosmolality and hypernatremia; J98.11 Atelectasis; N17.9 Acute kidney failure, unspecified; R18.8 Other ascites; K21.9 Gastro-esophageal reflux disease without esophagitis; Z20.822 Contact with and (suspected) exposure to COVID-19; K57.90 Diverticulosis of intestine, part unspecified, without perforation or abscess without bleeding; E78.5 Hyperlipidemia, unspecified; F17.200 Nicotine dependence, unspecified, uncomplicated; G89.29 Other chronic pain; I73.9 Peripheral vascular disease, unspecified; J44.9 Chronic obstructive pulmonary disease, unspecified; K80.20 Calculus of gallbladder without cholecystitis without obstruction; N18.9 Chronic kidney disease, unspecified; N28.1 Cyst of kidney, acquired; F41.9 Anxiety disorder, unspecified; M19.90 Unspecified osteoarthritis, unspecified site; R00.0 Tachycardia, unspecified; D63.8 Anemia in other chronic diseases classified elsewhere; D50.9 Iron deficiency anemia, unspecified; R53.81 Other malaise; Z86.19 Personal history of other infectious and parasitic diseases; Z86.73 Personal history of transient ischemic attack (TIA), and cerebral infarction without residual deficits; Z90.711 Acquired absence of uterus with remaining cervical stump; Z93.2 Ileostomy status; Z93.3 Colostomy status; Z68.28 Body mass index [BMI] 28.0-28.9, adult
CPT/HCPCS: 36415; 71045; 74018; 74022; 74176; 74250; 76700; 80048; 80053; 81001; 83690; 83735; 83880; 84145; 84484; 85007; 85025; 85027; 85610; 85730; 87426; 87428; 87449; 87641; 93005; 96361; 96365; 96375; C9113; J0456; J0692; J0780; J1940; J2270; J2405; J2543; J3490; J7030; J7050; Q9967; U0003; 97530-GO; 97530-GP; 99285-25; G0378

== ENCOUNTER 2021-10-19 09:14 | Inpatient (IN) | payer MEDICARE, BC ==
[~2021-10-19] VITALS: Ht 165.1 cm; Wt 88.6 kg
[~2021-10-19 09:14] MED LIST changes: +ACET325T9 PO; +CHOL10004 PO; -CHOL4POW PO; -CHOL4POW2 PO; +CHOL4POW31 PO; +CHOL4POW6 PO; +DICY10CA3 PO; +DOCU50CA9 PO; +FOLI0.8C PO; +METH2.5T PO; -OMEP20TA8 PO; +OMEP20TA91 PO; +ONDA4TAB12 PO
[2021-10-19] MEDS ORDERED: fentaNYL PF VIAL 100 MCG/2 ML VIAL IVP ONE (12:00)
[2021-10-19] MEDS ORDERED: IV NORMAL SALINE 1000ML BAG 1,000 ML IV ONE (12:00)
[2021-10-19] MEDS ORDERED: ONDANSETRON PF 4 MG/2 ML VIAL. IVP ONE (12:00)
[2021-10-19 12:24] LABS: CALCIUM 8.5 mg/dL (8.5-10.1); CREATININE 2.3 mg/dL (0.6-1.0); GFR 20.3; POTASSIUM 4.1 mmol/L (3.5-5.1)
[2021-10-19 12:30] LABS: ALBUMIN 2.5 g/dL (3.4-5.0); ALBUMIN/GLOBULIN RATIO 0.7 (1.0-1.7); TOTAL BILIRUBIN 0.4 mg/dL (0.2-1.0); TOTAL PROTEIN 6.3 g/dL (6.4-8.2)
[2021-10-19 12:35] LABS: BASO # 0.1 x10^3/uL (0.0-0.2); BASO % 0 % (0-3); EOS % 0 % (0-3); HEMATOCRIT 33.6 % (36.0-47.0); HEMOGLOBIN 10.7 g/dL (12.0-15.5); LYMPH # 2.4 x10^3/uL (1.0-4.8); LYMPH % 17 % (24-48); MEAN CORPUSCULAR HEMOGLOBIN 31 pg (25-35); MEAN CORPUSCULAR HGB CONC 32 g/dL (31-37); MEAN CORPUSCULAR VOLUME 97 fL (79-100); MONO # 1.2 x10^3/uL (0.0-1.1); MONO % 8 % (0-9); NEUT # 10.3 x10^3/uL (1.8-7.7); NEUT % 74 % (31-73); PLATELET COUNT 664 x10^3/uL (140-400); RED BLOOD COUNT 3.47 x10^6/uL (3.50-5.40); RED CELL DISTRIBUTION WIDTH 15.3 % (11.5-14.5); WHITE BLOOD COUNT 13.9 x10^3/uL (4.0-11.0)
[2021-10-19] MEDS ORDERED: PIPERACILLIN/TAZOBACTAM 2.25 GM in IV NORMAL SALINE 50ML 50 ML IV ONE (13:15)
--- NOTE | 2021-10-19 13:31 | RAD ---
Examination: CT of the abdomen pelvis without contrast HISTORY: History of nausea, vomiting, generalized abdominal pain COMPARISON: None available Technique: Axial CT images of the abdomen pelvis are performed without contrast. Coronal and sagittal reformats are performed Exposure: One or more of the following individualized dose reduction techniques were utilized for thi s examination: 1. Automated exposure control 2. Adjustment of the mA and/or kV according to patient size 3. Use of iterative reconstruction technique FINDINGS: Moderate right pleural effusion and small left pleural effusion with mild bibasilar lung atelectasis or infiltrates. No evidence of free air identified in the abdomen There are hypodense lesions identified in the liver with the largest measuring 2.8 cm and the left lo be of the liver. Mild perihepatic fluid identified. The spleen, adrenals grossly appears unremarkable The gallbladder is mildly distended. The stomach is mildly distended. The visualized pancreas grossly appears unremarkable Multiple dilated and fluid distended small bowel loops identified in the abdomen in the proximal and midportion with the collapsed small bowel loops distally with small knuckle of bowel abutting/tethere d to the anterior abdominal wall hernia best visualized on series 2 image 66 and series [address] [facility] site of obstruction . Cystic structure identified in the right kidney measuring 3.[address] or cystic lesion. There is diffuse stranding in the mesentery and peritoneum. Moderate degenerative changes lumbar spine. IMPRESSION: 1. Multiple dilated and fluid distended small bowel loops identified in the abdomen in the proximal and midportion with collapsed small bowel loops distally with a small knuckle of bowel abutting the a nterior abdominal wall hernia on series 5 image 37 likely site of obstruction . Differential includes adhesion or incarcerated hernia . 2. Hypodense lesions identified in the liver with the largest measuring 2.8 cm and the left lobe of the liver probably metastasis. Recommend MRI for further evaluation. 3. Moderate right pleural effusion and small left pleural effusion with mild bibasilar lung atelecta sis or infiltrates. 4. Diffuse infiltration of the mesentery and peritoneum suspicious for peritoneal metastasis. 5. Cystic structure identified in the right kidney measuring 3.2 cm likely cyst or cystic lesion. FOR INTERNAL CODING PURPOSES Critical result: Findings discussed with ROSANNA GRAY MD at 10/19/2021 1:28 PM. RESULT CODE: (C) Electronically signed by: Brandon Shultz MD (10/19/2021 1:28 PM) [id number]
--- NOTE | 2021-10-19 16:24 | PHYS DOC ---
Past Medical History Past Medical History: Anemia, Anxiety, Diverticulitis, Hypertension, Renal Failure, UTI, Other Additional Past Medical Histor: MITRAL VALVE PROLAPSE Past Surgical History: Hysterectomy, Other Additional Past Surgical Histo: BILAT EYE CYST, CATARACTS,Colostomy moved from L)side to R)side 11/30/2017. Smoking Status: Former Smoker Alcohol Use: None Drug Use: None Adult General Chief Complaint Chief Complaint: NAUSEA/VOMITING/DIARRHEA HPI HPI The patient is an 81-year-old female who presents for re-evaluation of several weeks of generalized abdominal discomfort and distention along with nonbloody vomiting and diarrhea. She has been having 5 or more episodes of nonbloody vomiting and 5 or more loose stools each day over that interval. Associated dehydration and fatigue. Patient was evidently admitted here last week at which time plain films of the abdomen and pelvis and barium study were reassuring and the patient was disch arged to follow-up. She returns because symptoms have not gotten better and in fact have gotten wor se. She denies fevers, upper respiratory congestion/rhinorrhea, cough, sore throat, shortness of breath or chest pain of any kind, flank pain, midline back pain, dysuria, hematuria, polyuria or oliguria, pain or swelling to arms or legs. Vital signs are appropriate here and she is in no acute distress, moving all extremities, calm and cooperative and oriented x4. Review of Systems Review of Systems A 12 point review of systems was completed and was negative except where noted in HPI above. Current Medications Current Medications Current Medications Medications (Trade) Dose Ordered Sig/Ella Start Time Stop Time Status Last Admin Dose Admin Fentanyl Citrate (Fentanyl 2ml Vial) 50 mcg 1X ONCE 10/19/21 12:00 10/19/21 12:05 DC 10/19/21 13:03 50 MCG Ondansetron HCl (Zofran) 4 mg 1X ONCE 10/19/21 12:00 10/19/21 12:05 DC 10/19/21 13:03 4 MG Piperacillin Sod/ Tazobactam Sod 2.25 gm/Sodium Chloride 50 ml @ 100 mls/hr 1X ONCE 10/19/21 13:15 10/19/21 13:44 DC 10/19/21 14:13 100 MLS/HR Sodium Chloride 1,000 ml @ 1,000 mls/hr 1X ONCE 10/19/21 12:00 10/19/21 12:59 DC 10/19/21 12:48 1,000 MLS/HR Allergies Allergies Allergies Coded Allergies Type Severity Reaction Last Updated Verified adhesive Allergy Intermediate Rash 10/19/21 Yes Physical Exam Physical Exam Cachectic, chronically ill-appearing 81-year-old female who is nontoxic and in no acute distress. Head is normocephalic and atraumatic. Neck is supple and nontender. Oropharynx is moist. Lungs are clear to auscultation at all stations. There is a normal S1 and S2 without rubs or gallops and capillary r efill is appropriate, less than 2 seconds globally. Abdomen with generalized distention and tenderness to palpation without pulsatile irreducible mass or palpable organomegaly noted. Skin is warm and dry without cyanosis, clubbing or edema. Psychiatrically, the patient demonstrates appropriate mood and affect and is alert. Evaluation of the extremities reveals BUEs and BLEs neurovascularly intact distally with strength out of 5, sensation intact light touch in all nerve distributions, radial, DP and PT pulses 2+ equal bilaterally, capillary refill less than 2 seconds, hands and feet warm and well-perfused. 2+ pitting peripheral edema below the level of the mid shins bilaterally, symmetr ic. No calf tenderness or swelling bilaterally. Homans test is negative bilaterally. Current Patient Data Vital Signs Vital Signs Date Time Temp Pulse Resp B/P (MAP) Pulse Ox O2 Delivery O2 Flow Rate FiO2 10/19/21 13:21 118/54 (75) Room Air 10/19/21 13:03 18 95 10/19/21 10:48 108 10/19/21 09:20 97.7 97.7 Lab Values Laboratory Tests Test 10/19/21 11:20 10/19/21 11:25 White Blood Count 13.9 x10^3/uL (4.0-11.0) H Red Blood Count 3.47 x10^6/uL (3.50-5.40) L Hemoglobin 10.7 g/dL (12.0-15.5) L Hematocrit 33.6 % (36.0-47.0) L Mean Corpuscular Volume 97 fL (79-100) Mean Corpuscular Hemoglobin 31 pg (25-35) Mean Corpuscular Hemoglobin Concent 32 g/dL (31-37) Red Cell Distribution Width 15.3 % (11.5-14.5) H Platelet Count 664 x10^3/uL (140-400) H Neutrophils (%) (Auto) 74 % (31-73) H Lymphocytes (%) (Auto) 17 % (24-48) L Monocytes (%) (Auto) 8 % (0-9) Eosinophils (%) (Auto) 0 % (0-3) Basophils (%) (Auto) 0 % (0-3) Neutrophils # (Auto) 10.3 x10^3/uL (1.8-7.7) H Lymphocytes # (Auto) 2.4 x10^3/uL (1.0-4.8) Monocytes # (Auto) 1.2 x10^3/uL (0.0-1.1) H Eosinophils # (Auto) 0.0 x10^3/uL (0.0-0.7) Basophils # (Auto) 0.1 x10^3/uL (0.0-0.2) Lactic Acid Level 1.5 mmol/L (0.4-2.0) Sodium Level 145 mmol/L (136-145) Potassium Level 4.1 mmol/L (3.5-5.1) Chloride Level 101 mmol/L (98-107) Carbon Dioxide Level 24 mmol/L (21-32) Anion Gap 20 (6-14) H Blood Urea Nitrogen 62 mg/dL (7-20) H Creatinine 2.3 mg/dL (0.6-1.0) H Estimated GFR (Cockcroft-Gault) 20.3 BUN/Creatinine Ratio 27 (6-20) H Glucose Level 120 mg/dL (70-99) H Calcium Level 8.5 mg/dL (8.5-10.1) Total Bilirubin 0.4 mg/dL (0.2-1.0) Aspartate Amino Transferase (AST) 22 U/L (15-37) Alanine Aminotransferase (ALT) 26 U/L (14-59) Alkaline Phosphatase 49 U/L (46-116) Troponin I High Sensitivity 19 ng/L (4-50) DA-Hoe-K-Type Natriuretic Peptide 673 pg/mL (0-449) H Total Protein 6.3 g/dL (6.4-8.2) L Albumin 2.5 g/dL (3.4-5.0) L Albumin/Globulin Ratio 0.7 (1.0-1.7) L Lipase 372 U/L (73-393) Laboratory Tests 10/19/21 11:20 Laboratory Tests 10/19/21 11:25 EKG EKG Sinus rhythm, rate 110, no acute ST elevation or depression, TX 136, QRS 70, QTc 449, EP interpretation. Nonischemic tracing, intervals appropriate. Radiology/Procedures Radiology/Procedures Examination: CT of the abdomen pelvis without contrast HISTORY: History of nausea, vomiting, generalized abdominal pain COMPARISON: None available Technique: Axial CT images of the abdomen pelvis are performed without contrast. Coronal and sagittal reformats are performed Exposure: One or more of the following individualized dose reduction techniques were utilized for this examination: 1. Automated exposure control 2. Adjustment of the mA and/or kV according to patient size 3. Use of iterative reconstruction technique FINDINGS: Moderate right pleural effusion and small left pleural effusion with mild bibasilar lung atelectasis or infiltrates. No evidence of free air identified in the abdomen There are hypodense lesions identified in the liver with the largest measuring 2.8 cm and the left lobe of the liver. Mild perihepatic fluid identified. The spleen, adrenals grossly appears unremarkable The gallbladder is mildly distended. The stomach is mildly distended. The visualized pancreas grossly appears unremarkable Multiple dilated and fluid distended small bowel loops identified in the abdomen in the proximal and midportion with the collapsed small bowel loops distally with small knuckle of bowel abutting/tethered to the anterior abdominal wall hernia best visualized on series 2 image 66 and series 5 image 37 likely site of obstruction . Cystic structure identified in the right kidney measuring 3.2 cm likely cyst or cystic lesion. There is diffuse stranding in the mesentery and peritoneum. Moderate degenerative changes lumbar spine. IMPRESSION: 1. Multiple dilated and fluid distended small bowel loops identified in the abdomen in the proximal and midportion with collapsed small bowel loops distally with a small knuckle of bowel abutting the anterior abdominal wall hernia on series 5 image 37 likely site of obstruction . Differential includes adhesion or incarcerated hernia . 2. Hypodense lesions identified in the liver with the largest measuring 2.8 cm and the left lobe of the liver probably metastasis. Recommend MRI for further evaluation. 3. Moderate right pleural effusion and small left pleural effusion with mild bibasilar lung atelectasis or infiltrates. 4. Diffuse infiltration of the mesentery and peritoneum suspicious for peritoneal metastasis. 5. Cystic structure identified in the right kidney measuring 3.2 cm likely cyst or cystic lesion. FOR INTERNAL CODING PURPOSES Critical result: Findings discussed with ROSANNA GRAY MD at 10/19/2021 1:28 PM. RESULT CODE: (C) Electronically signed by: Brandon Shultz MD (10/19/2021 1:28 PM) [id number] DICTATED and SIGNED BY: BRANDON SHULTZ MD DATE: 10/19/21 [id number] 0 Course & Med Decision Making Course & Med Decision Making Labs and imaging as above, remarkable primarily for a mild leukocytosis and acute on chronic renal insufficiency as well as numerous abnormalities on noncontrasted CT scan of the abdomen and pelvis. There is a suggestion of at least a partial small bowel obstruction. There is ascites and mesenteric stranding which the radiologist, with whom I spoke directly, feels relate to an unseen primary cancer with abdominal seeding/metastases. Have covered with a dose of Zosyn and will bring in for further care under hospitalist Dr. Howe, who graciously accepts. Stool studies sent and pending. Dragon Disclaimer Dragon Disclaimer This electronic medical record was generated, in whole or in part, using a voice recognition dictation system. Departure Departure Impression: Primary Impression: Partial small bowel obstruction Additional Impressions: Ascites Acute on chronic renal insufficiency Chronic diarrhea Chronic vomiting Disposition: ADMITTED INPATIENT Condition: GUARDED Referrals: Zandra CUELLAR MD (PCP) Problem Qualifiers Additional Impressions: Ascites Ascites type: other type Qualified Codes: R18.8 - Other ascites ROSANNA GRAY MD Oct 19, 2021 16:24
[2021-10-19] MEDS ORDERED: ONDANSETRON PF 4 MG/2 ML VIAL. IVP PRN (16:30)
[2021-10-19 16:33] VITALS: BP 149/72
--- NOTE | 2021-10-19 17:01 | HP ---
DATE OF SERVICE: 10/19/2021 ADMIT DATE: 10/19/2021 CHIEF COMPLAINT: Nausea, vomiting, diarrhea, abdominal pain. HISTORY OF PRESENT ILLNESS: The patient is a pleasant 81-year-old female who presents with generalized weakness and associated abdominal discomfort with nausea, vomiting, diarrhea. We did some imaging here in the ER showing probable metastatic disease to the peritoneum and to the liver. I discussed the case with ER physician. We are going to admit the patient and consult Oncology. It should be noted that she also has some renal failure, I am going to consult Nephrology. PAST MEDICAL HISTORY: Anxiety, anemia, diverticulitis, hypertension, renal failure, UTI, mitral valve prolapse, cataracts, colostomy, hysterectomy, previous tobacco abuse. ALLERGIES: ADHESIVE TAPE. FAMILY HISTORY: Diabetes. SOCIAL HISTORY: She quit smoking. No drink or drugs. MEDICATIONS: Reviewed, please refer to the MRAD. REVIEW OF SYSTEMS: GENERAL: No history of weight change, weakness or fevers. SKIN: No bruising, hair changes or rashes. EYES: No blurred, double or loss of vision. NOSE AND THROAT: No history of nosebleeds, hoarseness or sore throat. HEART: No history of palpitations, chest pain or shortness of breath on exertion. LUNGS: Denies cough, hemoptysis, wheezing or shortness of breath. GASTROINTESTINAL: She complains of nausea, vomiting, diarrhea, and abdominal pain. GENITOURINARY: No history of frequency, urgency, hesitancy or nocturia. NEUROLOGIC: Denies history of numbness, tingling, tremor or weakness. PSYCHIATRIC: No history of panic, anxiety or depression. ENDOCRINE: No history of heat or cold intolerance, polyuria or polydipsia. EXTREMITIES: Denies muscle weakness, joint pain, pain on walking or stiffness. PHYSICAL EXAMINATION: VITALS: Within normal limits and are stable. GENERAL: No apparent distress. Alert and oriented. HEENT: Normal cephalic atraumatic, external auditory canals are patent EYES: Extraocular muscles are intact, pupils are equally round and reactive to light and accommodation MUSCULOSKELETAL: Well developed, well nourished, good range of motion ENDOCRINE: No thyromegaly was palpated LYMPHATICS: No cervical chain or axillary nodes were noted HEMATOPOIETIC: No bruising NECK: Supple, no JVD, no thyromegaly was noted. LUNGS: Clear to auscultation in all lung schwartz without rhonchi or wheezing. HEART: RRR, S1, S2 present. Peripheral pulses intact, no obvious murmurs were noted. ABDOMEN: She has decreased bowel sounds. Her abdomen is tender. EXTREMITIES: Without any cyanosis, clubbing, or edema. Pedal pulses intact, Homans sign is negative. NEUROLOGIC: Normal speech, normal tone. A and O x 3, moves all extremities, no obvious focal deficits. PSYCHIATRIC: Normal affect, normal mood. Stable. SKIN: No ulcerations or rashes, good skin turgor, no jaundice. VASCULAR: Good capillary refill, neurovascular bundle appears to be intact. LABORATORY DATA: BUN 62, creatinine 2.3. White count 13.9, hemoglobin 10.7, platelets 664. CT of the abdomen shows a small-bowel obstruction with a probable liver mets, bilateral lung atelectasis or infiltrates, diffuse infiltration of the mesentery and peritoneum suspicious for metastatic disease and a right renal cyst. ASSESSMENT AND PLAN: Nausea, vomiting, abdominal pain with incidental findings of probable metastatic cancer. The patient will be admitted. We will give her IV fluids, p.r.n. Zofran, p.r.n. pain meds, home meds. DVT prophylaxis. Full code. Consult Oncology. Consult Nephrology. Prognosis extremely guarded. TRACI DR: Nilesh TID: [id number]
--- NOTE | 2021-10-19 17:07 | PDOC2 ---
GI CONSULT Date of Service: DATE: 10/19/21 TIME: 16:49 Reason For Consult: suspected mets to abdomen, vomiting, diarrhea HPI: HPI: 81 y/o female admitted through ER. Just discharged last week. Ongoing issues w/ vomiting (dark watery) and diarrhea ("total water") with diffuse abdominal discomfort. Says tolerates nothing PO. SBS on 10/08/21: mild prolongation of the small bowel transit time without evidence of small bowel obstruction. H/o GERD on PPI. No previous EGD. H/o complicated diverticulitis needing sigmoid resection in 2018 with temporary colostomy and loop ileostomy (and subsequently reversed). Sigmoidoscopy prior to initial resection (attempted colonoscopy) with rectal adenoma (and unable to pass sigmoid). Barium enema in 2019 showed diverticulosis. Cholelithiasis on past imaging along w/ hepatic and renal cysts (mentioned dating back to 2016 I believe). No pancreas history. Combo JESÚS/ACD per iron profile in 2018. Rapid COVID positive w/ negative PCR on 10/12/21. PMH: PMH: TIA, CHF, HTN, OA, PVD appendectomy, cataract extraction FH: Family History: No pertinent hx Social History: Smoke: Quit ALCOHOL: rare Drugs: None ROS: GEN: Denies fevers, chills, sweats HEENT: Denies blurred vision, sore throat CV: Denies chest pain RESP: +SOA GI: Per HPI : Denies hematuria, dysuria ENDO: +weight loss NEURO: Denies confusion, dizziness MSK: +weakness SKIN: Denies jaundice, pruritus Vitals: Vitals: Vital Signs Date Time Temp Pulse Resp B/P (MAP) Pulse Ox O2 Delivery O2 Flow Rate FiO2 10/19/21 15:21 114 106/52 (70) 96 Room Air 10/19/21 13:33 18 10/19/21 09:20 97.7 97.7 Labs: Labs: Laboratory Tests Test 10/19/21 11:20 10/19/21 11:25 White Blood Count 13.9 x10^3/uL (4.0-11.0) Red Blood Count 3.47 x10^6/uL (3.50-5.40) Hemoglobin 10.7 g/dL (12.0-15.5) Hematocrit 33.6 % (36.0-47.0) Mean Corpuscular Volume 97 fL (79-100) Mean Corpuscular Hemoglobin 31 pg (25-35) Mean Corpuscular Hemoglobin Concent 32 g/dL (31-37) Red Cell Distribution Width 15.3 % (11.5-14.5) Platelet Count 664 x10^3/uL (140-400) Neutrophils (%) (Auto) 74 % (31-73) Lymphocytes (%) (Auto) 17 % (24-48) Monocytes (%) (Auto) 8 % (0-9) Eosinophils (%) (Auto) 0 % (0-3) Basophils (%) (Auto) 0 % (0-3) Neutrophils # (Auto) 10.3 x10^3/uL (1.8-7.7) Lymphocytes # (Auto) 2.4 x10^3/uL (1.0-4.8) Monocytes # (Auto) 1.2 x10^3/uL (0.0-1.1) Eosinophils # (Auto) 0.0 x10^3/uL (0.0-0.7) Basophils # (Auto) 0.1 x10^3/uL (0.0-0.2) Lactic Acid Level 1.5 mmol/L (0.4-2.0) Sodium Level 145 mmol/L (136-145) Potassium Level 4.1 mmol/L (3.5-5.1) Chloride Level 101 mmol/L (98-107) Carbon Dioxide Level 24 mmol/L (21-32) Anion Gap 20 (6-14) Blood Urea Nitrogen 62 mg/dL (7-20) Creatinine 2.3 mg/dL (0.6-1.0) Estimated GFR (Cockcroft-Gault) 20.3 BUN/Creatinine Ratio 27 (6-20) Glucose Level 120 mg/dL (70-99) Calcium Level 8.5 mg/dL (8.5-10.1) Total Bilirubin 0.4 mg/dL (0.2-1.0) Aspartate Amino Transf (AST/SGOT) 22 U/L (15-37) Alanine Aminotransferase (ALT/SGPT) 26 U/L (14-59) Alkaline Phosphatase 49 U/L (46-116) Troponin I High Sensitivity 19 ng/L (4-50) LY-Fdm-F-Type Natriuretic Peptide 673 pg/mL (0-449) Total Protein 6.3 g/dL (6.4-8.2) Albumin 2.5 g/dL (3.4-5.0) Albumin/Globulin Ratio 0.7 (1.0-1.7) Lipase 372 U/L (73-393) Allergies: Coded Allergies: adhesive (Verified Allergy, Intermediate, Rash, 10/19/21) Medications: Current Medications Medications (Trade) Dose Ordered Sig/Ella Route PRN Reason Start Time Stop Time Status Last Admin Dose Admin Sodium Chloride 1,000 ml @ 1,000 mls/hr 1X ONCE IV 10/19/21 12:00 10/19/21 12:59 DC 10/19/21 12:48 Ondansetron HCl (Zofran) 4 mg 1X ONCE IVP 10/19/21 12:00 10/19/21 12:05 DC 10/19/21 13:03 Fentanyl Citrate (Fentanyl 2ml Vial) 50 mcg 1X ONCE IVP 10/19/21 12:00 10/19/21 12:05 DC 10/19/21 13:03 Piperacillin Sod/ Tazobactam Sod 2.25 gm/Sodium Chloride 50 ml @ 100 mls/hr 1X ONCE IV 10/19/21 13:15 10/19/21 13:44 DC 10/19/21 14:13 Imaging: Imaging: CT A/P IMPRESSION: 1. Multiple dilated and fluid distended small bowel loops identified in the abdomen in the proximal and midportion with collapsed small bowel loops distally with a small knuckle of bowel abutting the anterior abdominal wall hernia on series 5 image 37 likely site of obstruction . Differential includes adhesion or incarcerated hernia . 2. Hypodense lesions identified in the liver with the largest measuring 2.8 cm and the left lobe of the liver probably metastasis. Recommend MRI for further evaluation. 3. Moderate right pleural effusion and small left pleural effusion with mild bibasilar lung atelectasis or infiltrates. 4. Diffuse infiltration of the mesentery and peritoneum suspicious for peritoneal metastasis. 5. Cystic structure identified in the right kidney measuring 3.2 cm likely cyst or cystic lesion. PE: GEN: laying in bed holding emesis basin HEENT: Atraumatic, PERRL LUNGS: diminished HEART: tachycardic ABD: some distention, nonspecific discomfort - brief exam due to onset of watery brown emesis EXTREMITY: No edema SKIN: pale NEURO/PSYCH: A & O 3 A/P: A/P: Vomiting, diarrhea Leukocytosis, chronic anemia, YA Abnormal CT: multiple dilated and fluid distended proximal and mid SB loops with collapsed SB loops distally with a small knuckle of bowel abutting the anterior abdominal wall hernia, hypodense liver lesions, moderate right pleural effusion and small left pleural effusion with mild bibasilar lung atelectasis or infiltrates, diffuse infiltration of the mesentery and peritoneum, right renal cystic structure H/o GERD CRC screen, h/o adenomatous polyp - flex sig 2018 prior to resection, also had barium enema 2018 H/o diverticular disease s/p sigmoid resection Cholelithiasis H/o hepatic and renal cysts on past imaging Rapid COVID + with negative PCR 10/12/21 -- Chronic issues, readmitted, now w/ CT report as above - will d/w Dr. Puente. Would keep NPO w/ ongoing vomiting w/ IVF per primary. Try NGT. Surgery opinion pending. Note stool studies also ordered. IRASEMA MCCARTY Oct 19, 2021 17:07
[2021-10-19 19:07] VITALS: BP 136/59
[2021-10-19] MEDS: PANTOPRAZOLE IV PUSH 40 MG VIAL. IVP SCH (22:52)
[2021-10-19 23:00] VITALS: BP 129/57
--- NOTE | 2021-10-19 23:36 | RAD ---
AP abdomen x-ray HISTORY: Nasogastric tube placement. FINDINGS: Placement of a nasogastric tube tip left upper quadrant abdomen general radiographic region of the upper stomach. Small right greater than left pleural effusions layering along the diaphragms. Gasless upper abdomen. Bones unremarkable. IMPRESSION: Nasogastric intubation. See above. Electronically signed by: Chavez Negron MD (10/19/2021 11:34 PM) [facility]
[2021-10-20] MEDS: MORPHINE SULFATE 2 MG/ML INJ. IVP PRN ×2 (01:32→03:48)
[2021-10-20 02:51] VITALS: BP 131/61
[2021-10-20] MEDS ORDERED: C.DIFF MED SCREEN BY RX. MC ONE (04:00)
[2021-10-20 07:00] VITALS: BP 126/57
[2021-10-20 07:23] LABS: BASO % 0 % (0-3); EOS % 0 % (0-3); HEMATOCRIT 28.5 % (36.0-47.0); HEMOGLOBIN 9.2 g/dL (12.0-15.5); LYMPH # 1.7 x10^3/uL (1.0-4.8); LYMPH % 14 % (24-48); MEAN CORPUSCULAR HEMOGLOBIN 31 pg (25-35); MEAN CORPUSCULAR HGB CONC 32 g/dL (31-37); MEAN CORPUSCULAR VOLUME 96 fL (79-100); MONO % 9 % (0-9); NEUT # 9.6 x10^3/uL (1.8-7.7); NEUT % 78 % (31-73); PLATELET COUNT 569 x10^3/uL (140-400); RED BLOOD COUNT 2.97 x10^6/uL (3.50-5.40); RED CELL DISTRIBUTION WIDTH 15.4 % (11.5-14.5); WHITE BLOOD COUNT 12.3 x10^3/uL (4.0-11.0)
[2021-10-20 07:31] LABS: CALCIUM 8.2 mg/dL (8.5-10.1); CREATININE 2.1 mg/dL (0.6-1.0); GFR 22.5; POTASSIUM 3.9 mmol/L (3.5-5.1)
[2021-10-20] MEDS ORDERED: IV NORMAL SALINE 1000ML BAG 1,000 ML IV SCH (08:45)
--- NOTE | 2021-10-20 08:47 | PDOC ---
Date of Service: DATE: 10/20/21 TIME: 08:41 Subjective: Subjective: Feels so much better w/ NGT. Less abdominal discomfort, no nausea. No flatus/stool. Says was supposed to see executive administrator yesterday. Objective: Objective: D/w nurse - NGT placed last night, ~1000cc out. Vital Signs: Vital Signs Date Time Temp Pulse Resp B/P (MAP) Pulse Ox O2 Delivery O2 Flow Rate FiO2 10/20/21 07:00 97.7 112 18 126/57 (80) 98 Room Air 97.7 Labs: Laboratory Tests Test 10/19/21 11:20 10/19/21 11:25 10/20/21 07:15 White Blood Count 13.9 x10^3/uL 12.3 x10^3/uL Red Blood Count 3.47 x10^6/uL 2.97 x10^6/uL Hemoglobin 10.7 g/dL 9.2 g/dL Hematocrit 33.6 % 28.5 % Mean Corpuscular Volume 97 fL 96 fL Mean Corpuscular Hemoglobin 31 pg 31 pg Mean Corpuscular Hemoglobin Concent 32 g/dL 32 g/dL Red Cell Distribution Width 15.3 % 15.4 % Platelet Count 664 x10^3/uL 569 x10^3/uL Neutrophils (%) (Auto) 74 % 78 % Lymphocytes (%) (Auto) 17 % 14 % Monocytes (%) (Auto) 8 % 9 % Eosinophils (%) (Auto) 0 % 0 % Basophils (%) (Auto) 0 % 0 % Neutrophils # (Auto) 10.3 x10^3/uL 9.6 x10^3/uL Lymphocytes # (Auto) 2.4 x10^3/uL 1.7 x10^3/uL Monocytes # (Auto) 1.2 x10^3/uL 1.0 x10^3/uL Eosinophils # (Auto) 0.0 x10^3/uL 0.0 x10^3/uL Basophils # (Auto) 0.1 x10^3/uL 0.0 x10^3/uL Lactic Acid Level 1.5 mmol/L Iron Level 15 ug/dL Total Iron Binding Capacity 152 ug/dL Iron Saturation 10 % Vitamin B12 Level 970 pg/mL Sodium Level 145 mmol/L 147 mmol/L Potassium Level 4.1 mmol/L 3.9 mmol/L Chloride Level 101 mmol/L 107 mmol/L Carbon Dioxide Level 24 mmol/L 27 mmol/L Anion Gap 20 13 Blood Urea Nitrogen 62 mg/dL 57 mg/dL Creatinine 2.3 mg/dL 2.1 mg/dL Estimated GFR (Cockcroft-Gault) 20.3 22.5 BUN/Creatinine Ratio 27 Glucose Level 120 mg/dL 113 mg/dL Calcium Level 8.5 mg/dL 8.2 mg/dL Total Bilirubin 0.4 mg/dL Aspartate Amino Transf (AST/SGOT) 22 U/L Alanine Aminotransferase (ALT/SGPT) 26 U/L Alkaline Phosphatase 49 U/L Troponin I High Sensitivity 19 ng/L PD-Lov-H-Type Natriuretic Peptide 673 pg/mL Total Protein 6.3 g/dL Albumin 2.5 g/dL Albumin/Globulin Ratio 0.7 Lipase 372 U/L PE: GEN: NAD - appears more comfortable today LUNGS: some diminished, on RA HEART: tachycardic ABD: less distended, quiet, brown-bilious output from NGT NEURO/PSYCH: A & O 3 A/P: Chronic vomiting - now w/ NGT Leukocytosis (better), JESÚS/ACD, YA (better) Abnormal CT: multiple dilated and fluid distended proximal and mid SB loops with collapsed SB loops distally with a small knuckle of bowel abutting the anterior abdominal wall hernia, hypodense liver lesions, moderate right pleural effusion and small left pleural effusion with mild bibasilar lung atelectasis or infiltrates, diffuse infiltration of the mesentery and peritoneum, right renal cystic structure Tachycardia -- Start IVF and then defer management to primary - d/w nurse. D/w surgery - will ask oncology to see. Continue NGT - okay for ice chips per her request. Justicifation of Admission Dx: Justifications for Admission: Justification of Admission Dx: Yes IRASEMA MCCARTY Oct 20, 2021 08:47
[2021-10-20] MEDS: PANTOPRAZOLE IV PUSH 40 MG VIAL. IVP SCH ×2 (08:51→17:03)
--- NOTE | 2021-10-20 09:29 | PDOC2 ---
CONSULT Date of Consult Date of Consult DATE: 10/20/21 TIME: 09:10 Reason for Consult Reason for Consult: "Azotemia , CRF"- Dr wilks Source Source: Chart review, Patient History of Present Illness Reason for Visit: Patient is 81-year-old CF who presents to the ER for re-evaluation of several weeks of generalized abdominal discomfort and distention along with nonbloody vomiting and diarrhea. She has been having 5 or more episodes of nonbloody vomiting and 5 or more loose BM each day over that interval. Associated dehydration and fatigue. Patient was evidently admitted here last week at which time plain films of the abdomen and pelvis and barium study were reassuring and the patient was discharged to follow-up. She returns because symptoms have not gotten better and in fact have gotten worse. She denies fevers, upper respiratory congestion/rhinorrhea, cough, sore throat, shortness of breath or chest pain of any kind, flank pain, midline back pain, dysuria, hematuria, polyuria or oliguria, pain or swelling to arms or legs. Feels better today w/ NGT.Less abdominal discomfort, no nausea.No BM . States she is nervous as Oncology consulted for abnormal CT findings Past Medical History Cardiovascular: HTN, Hyperlipidemia, Valve insufficiency, Other Pulmonary: No pertinent hx GI: Diverticulosis, GERD Heme/Onc: No pertinent hx Hepatobiliary: No pertinent hx Psych: Anxiety Musculoskeletal: low back pain, Osteoarthritis Rheumatologic: No pertinent hx Infectious disease: No pertinent hx Renal/: Chronic renal insuff Endocrine: Osteopenia Past Surgical History Past Surgical History: Appendectomy, Hysterectomy, Colon Resection, Other Family History Family History: No Significant, Other Social History Quit ALCOHOL: rare Drugs: None Lives: with Family Current Problem List Problem List Problems Medical Problems: (1) Acute on chronic renal insufficiency Status: Acute (2) Ascites Status: Acute (3) Chronic diarrhea Status: Acute (4) Chronic vomiting Status: Acute (5) Partial small bowel obstruction Status: Acute Current Medications Current Medications Current Medications Sodium Chloride 1,000 ml @ 1,000 mls/hr 1X ONCE IV Last administered on 10/19at 12:48; Start 10/19/21 at 12:00; Stop 10/19/21 at 12:59; Status DC Ondansetron HCl (Zofran) 4 mg 1X ONCE IVP Last administered on 10/19/21at 13:03; Start 10/19/21 at 12:00; Stop 10/19/21 at 12:05; Status DC Fentanyl Citrate (Fentanyl 2ml Vial) 50 mcg 1X ONCE IVP Last administered on 10/19/21at 13:03; Start 10/19/21 at 12:00; Stop 10/19/21 at 12:05; Status DC Piperacillin Sod/ Tazobactam Sod 2.25 gm/Sodium Chloride 50 ml @ 100 mls/hr 1X ONCE IV Last administered on 10/19/21at 14:13; Start 10/19/21 at 13:15; Stop 10/19/21 at 13:44; Status DC Ondansetron HCl (Zofran) 4 mg PRN Q8HRS PRN IVP NAUSEA/VOMITING Last administered on 10/19/21at 22:52; Start 10/19/21 at 16:30; Stop 10/20/21 at 16:29 Morphine Sulfate (Morphine Sulfate) 2 mg PRN Q2HR PRN IVP PAIN Last administered on 10/20/21at 03:48; Start 10/19/21 at 16:30; Stop 10/20/21 at 16:29 Pantoprazole Sodium (PROTONIX VIAL for IV PUSH) 40 mg BIDAC IVP Last administered on 10/20/21at 08:51; Start 10/19/21 at 17:30 Pharmacy Consult ([place].diff Med Screen By Rx) 1 each 1X ONCE [facility] ; Start 10/20/21 at 04:00; Stop 10/20/21 at 04:01; Status Cancel Sodium Chloride 1,000 ml @ 75 mls/hr [id number] IV Last administered on 10/20/21at 08:52; Start 10/20/21 at 08:45 Active Scripts Active Ondansetron Odt (Ondansetron) 4 Mg Tab.rapdis 1 Tab PO PRN Q6-8HRS Dicyclomine Hcl 10 Mg Capsule 10 Mg PO PRN QID PRN Reported Stool Softener (Docusate Sodium) 50 Mg Capsule 1 Cap PO DAILY PRN 30 Days Tylenol (Acetaminophen) 325 Mg Tablet 1-2 Tab PO HS Perphen-Amitrip 2 Mg-10 Mg Tab (Perphenazine/Amitriptyline Hcl) 1 Each Tablet 1 Tab PO QHS Methotrexate (Methotrexate Sodium) 2.5 Mg Tablet 10 Tab PO TUESDAY Folic Acid 0.8 Mg Capsule 1 Cap PO DAILY 30 Days Vitamin D3 (Vitamin D) 25 Mcg Tablet 25 Mcg PO DAILY 1,000 UNITS = 25 MCG Amlodipine Besylate 2.5 Mg Tablet 2.5 Mg PO DAILY Vit C-Quyen Hips 500 mg Chew Tb (Ascorbic Acid/Ascorbate Sodium) 500 Mg Tab.chew 500 Mg PO DAILY Probiotic Acidophilus (Lactobacillus Acidophilus) 1 Each Tablet 1 Each PO DAILY Metoprolol Tartrate 50 Mg Tablet 50 Mg PO BID Omeprazole 20 Mg Tablet.dr 20 Mg PO DAILY Multivitamins (Multivitamin) 1 Each Tablet 1 Tab PO DAILY Allergies Allergies: Coded Allergies: adhesive (Verified Allergy, Intermediate, Rash, 10/19/21) ROS Review of System review of systems negative except where noted in HPI above. Physical Exam Physical Exam GEN: NAD HEEN: OM mildly dry , NG tube in place NECK: Supple CVS: RRR RESP: CTA, No access Muscle use GI: BS + ve, Non Tender, NEURO- Grossly normal SKIN- No Rash Psych Cooperative [place] + 10/19/21; No CVA tenderness, No Suprapubic Tenderness, Vital Signs Vital Signs Date Time Temp Pulse Resp B/P (MAP) Pulse Ox O2 Delivery O2 Flow Rate FiO2 10/20/21 07:00 97.7 112 18 126/57 (80) 98 Room Air 97.7 Assessment & Plan YA- Vasomotor 2/2 Dehydration- Diarrhea/Vomiting, Low BP POA , Non Oliguric; Creat improving . Supportive care, continue IVF , Avoid nephrotoxins , strict I/O CKD stage 3- Baseline Cr 1.4-1.6. Intermittent YA during Hospitalization at [facility] . Reviewed recent labs 09/22/21 from our office records Creat was 1.5 . She follows with us as OP . Last seen February 2021; missed fu appt few weeks back . Right renal cyst- Cystic structure identified in the right kidney measuring 3.2 cm likely cyst or cystic lesion.Radiologist didint specify if simple cyst or concerning . US earlier this year reported bilateral renal cyst 3.4 cm anechoic exophytic cyst in the lower pole of Rt Kidney . CT in 2018 reported 2.7 cm cyst in Rt Kidney . No sure if radiologist have compared all the imaging HyperNatremia Mild, Monitor,if persistent switch to IV hypotonic fluid Vomiting -feeling better w/ NGT Abnormal CT: multiple dilated and fluid distended proximal and mid SB loops with collapsed SB loops distally with a small knuckle of bowel abutting the anterior abdominal wall hernia, hypodense liver lesions, diffuse infiltration of the mesentery. Defer to primary/GI Pleural effusion - moderate right pleural effusion and small left pleural effusion with mild bibasilar lung atelectasis or infiltrates, and peritoneum Anemia- Hgb stable <10 Status loop ileostomy after low anterior resection Takedown of her protective loop ileostomy. She had a low anterior resection almost 2-3 years ago takedown Rheumatoid arthritis - she informed us in February by Dr Ulloa her PCP and switched to Methotrexate Labs Labs Laboratory Tests Test 10/19/21 11:20 10/19/21 11:25 10/20/21 07:15 White Blood Count 13.9 x10^3/uL (4.0-11.0) 12.3 x10^3/uL (4.0-11.0) Red Blood Count 3.47 x10^6/uL (3.50-5.40) 2.97 x10^6/uL (3.50-5.40) Hemoglobin 10.7 g/dL (12.0-15.5) 9.2 g/dL (12.0-15.5) Hematocrit 33.6 % (36.0-47.0) 28.5 % (36.0-47.0) Mean Corpuscular Volume 97 fL (79-100) 96 fL (79-100) Mean Corpuscular Hemoglobin 31 pg (25-35) 31 pg (25-35) Mean Corpuscular Hemoglobin Concent 32 g/dL (31-37) 32 g/dL (31-37) Red Cell Distribution Width 15.3 % (11.5-14.5) 15.4 % (11.5-14.5) Platelet Count 664 x10^3/uL (140-400) 569 x10^3/uL (140-400) Neutrophils (%) (Auto) 74 % (31-73) 78 % (31-73) Lymphocytes (%) (Auto) 17 % (24-48) 14 % (24-48) Monocytes (%) (Auto) 8 % (0-9) 9 % (0-9) Eosinophils (%) (Auto) 0 % (0-3) 0 % (0-3) Basophils (%) (Auto) 0 % (0-3) 0 % (0-3) Neutrophils # (Auto) 10.3 x10^3/uL (1.8-7.7) 9.6 x10^3/uL (1.8-7.7) Lymphocytes # (Auto) 2.4 x10^3/uL (1.0-4.8) 1.7 x10^3/uL (1.0-4.8) Monocytes # (Auto) 1.2 x10^3/uL (0.0-1.1) 1.0 x10^3/uL (0.0-1.1) Eosinophils # (Auto) 0.0 x10^3/uL (0.0-0.7) 0.0 x10^3/uL (0.0-0.7) Basophils # (Auto) 0.1 x10^3/uL (0.0-0.2) 0.0 x10^3/uL (0.0-0.2) Lactic Acid Level 1.5 mmol/L (0.4-2.0) Iron Level 15 ug/dL (50-170) Total Iron Binding Capacity 152 ug/dL (250-450) Iron Saturation 10 % (15-34) Vitamin B12 Level 970 pg/mL (247-911) Sodium Level 145 mmol/L (136-145) 147 mmol/L (136-145) Potassium Level 4.1 mmol/L (3.5-5.1) 3.9 mmol/L (3.5-5.1) Chloride Level 101 mmol/L (98-107) 107 mmol/L (98-107) Carbon Dioxide Level 24 mmol/L (21-32) 27 mmol/L (21-32) Anion Gap 20 (6-14) 13 (6-14) Blood Urea Nitrogen 62 mg/dL (7-20) 57 mg/dL (7-20) Creatinine 2.3 mg/dL (0.6-1.0) 2.1 mg/dL (0.6-1.0) Estimated GFR (Cockcroft-Gault) 20.3 22.5 BUN/Creatinine Ratio 27 (6-20) Glucose Level 120 mg/dL (70-99) 113 mg/dL (70-99) Calcium Level 8.5 mg/dL (8.5-10.1) 8.2 mg/dL (8.5-10.1) Total Bilirubin 0.4 mg/dL (0.2-1.0) Aspartate Amino Transf (AST/SGOT) 22 U/L (15-37) Alanine Aminotransferase (ALT/SGPT) 26 U/L (14-59) Alkaline Phosphatase 49 U/L (46-116) Troponin I High Sensitivity 19 ng/L (4-50) FS-Wub-G-Type Natriuretic Peptide 673 pg/mL (0-449) Total Protein 6.3 g/dL (6.4-8.2) Albumin 2.5 g/dL (3.4-5.0) Albumin/Globulin Ratio 0.7 (1.0-1.7) Lipase 372 U/L (73-393) Laboratory Tests Test 10/19/21 11:20 10/19/21 11:25 10/20/21 07:15 White Blood Count 13.9 x10^3/uL (4.0-11.0) 12.3 x10^3/uL (4.0-11.0) Red Blood Count 3.47 x10^6/uL (3.50-5.40) 2.97 x10^6/uL (3.50-5.40) Hemoglobin 10.7 g/dL (12.0-15.5) 9.2 g/dL (12.0-15.5) Hematocrit 33.6 % (36.0-47.0) 28.5 % (36.0-47.0) Mean Corpuscular Volume 97 fL (79-100) 96 fL (79-100) Mean Corpuscular Hemoglobin 31 pg (25-35) 31 pg (25-35) Mean Corpuscular Hemoglobin Concent 32 g/dL (31-37) 32 g/dL (31-37) Red Cell Distribution Width 15.3 % (11.5-14.5) 15.4 % (11.5-14.5) Platelet Count 664 x10^3/uL (140-400) 569 x10^3/uL (140-400) Neutrophils (%) (Auto) 74 % (31-73) 78 % (31-73) Lymphocytes (%) (Auto) 17 % (24-48) 14 % (24-48) Monocytes (%) (Auto) 8 % (0-9) 9 % (0-9) Eosinophils (%) (Auto) 0 % (0-3) 0 % (0-3) Basophils (%) (Auto) 0 % (0-3) 0 % (0-3) Neutrophils # (Auto) 10.3 x10^3/uL (1.8-7.7) 9.6 x10^3/uL (1.8-7.7) Lymphocytes # (Auto) 2.4 x10^3/uL (1.0-4.8) 1.7 x10^3/uL (1.0-4.8) Monocytes # (Auto) 1.2 x10^3/uL (0.0-1.1) 1.0 x10^3/uL (0.0-1.1) Eosinophils # (Auto) 0.0 x10^3/uL (0.0-0.7) 0.0 x10^3/uL (0.0-0.7) Basophils # (Auto) 0.1 x10^3/uL (0.0-0.2) 0.0 x10^3/uL (0.0-0.2) Lactic Acid Level 1.5 mmol/L (0.4-2.0) Iron Level 15 ug/dL (50-170) Total Iron Binding Capacity 152 ug/dL (250-450) Iron Saturation 10 % (15-34) Vitamin B12 Level 970 pg/mL (247-911) Sodium Level 145 mmol/L (136-145) 147 mmol/L (136-145) Potassium Level 4.1 mmol/L (3.5-5.1) 3.9 mmol/L (3.5-5.1) Chloride Level 101 mmol/L (98-107) 107 mmol/L (98-107) Carbon Dioxide Level 24 mmol/L (21-32) 27 mmol/L (21-32) Anion Gap 20 (6-14) 13 (6-14) Blood Urea Nitrogen 62 mg/dL (7-20) 57 mg/dL (7-20) Creatinine 2.3 mg/dL (0.6-1.0) 2.1 mg/dL (0.6-1.0) Estimated GFR (Cockcroft-Gault) 20.3 22.5 BUN/Creatinine Ratio 27 (6-20) Glucose Level 120 mg/dL (70-99) 113 mg/dL (70-99) Calcium Level 8.5 mg/dL (8.5-10.1) 8.2 mg/dL (8.5-10.1) Total Bilirubin 0.4 mg/dL (0.2-1.0) Aspartate Amino Transf (AST/SGOT) 22 U/L (15-37) Alanine Aminotransferase (ALT/SGPT) 26 U/L (14-59) Alkaline Phosphatase 49 U/L (46-116) Troponin I High Sensitivity 19 ng/L (4-50) IE-Gfv-G-Type Natriuretic Peptide 673 pg/mL (0-449) Total Protein 6.3 g/dL (6.4-8.2) Albumin 2.5 g/dL (3.4-5.0) Albumin/Globulin Ratio 0.7 (1.0-1.7) Lipase 372 U/L (73-393) Review All relevant outside records, renal labs, imaging studies, telemetry/EKG's were reviewed. Images Images : CT ABDOMEN PELVIS WO CONTRAST Examination: CT of the abdomen pelvis without contrast HISTORY: History of nausea, vomiting, generalized abdominal pain COMPARISON: None available Technique: Axial CT images of the abdomen pelvis are performed without contrast. Coronal and sagittal reformats are performed Exposure: One or more of the following individualized dose reduction techniques were utilized for this examination: 1. Automated exposure control 2. Adjustment of the mA and/or kV according to patient size 3. Use of iterative reconstruction technique FINDINGS: Moderate right pleural effusion and small left pleural effusion with mild bibasilar lung atelectasis or infiltrates. No evidence of free air identified in the abdomen There are hypodense lesions identified in the liver with the largest measuring 2.8 cm and the left lobe of the liver. Mild perihepatic fluid identified. The spleen, adrenals grossly appears unremarkable The gallbladder is mildly distended. The stomach is mildly distended. The visualized pancreas grossly appears unremarkable Multiple dilated and fluid distended small bowel loops identified in the abdomen in the proximal and midportion with the collapsed small bowel loops distally with small knuckle of bowel abutting/tethered to the anterior abdominal wall hernia best visualized on series 2 image 66 and series 5 image 37 likely site of obstruction . Cystic structure identified in the right kidney measuring 3.2 cm likely cyst or cystic lesion. There is diffuse stranding in the mesentery and peritoneum. Moderate degenerative changes lumbar spine. IMPRESSION: 1. Multiple dilated and fluid distended small bowel loops identified in the abdomen in the proximal and midportion with collapsed small bowel loops distally with a small knuckle of bowel abutting the anterior abdominal wall hernia on series 5 image 37 likely site of obstruction . Differential includes adhesion or incarcerated hernia . 2. Hypodense lesions identified in the liver with the largest measuring 2.8 cm and the left lobe of the liver probably metastasis. Recommend MRI for further evaluation. 3. Moderate right pleural effusion and small left pleural effusion with mild bibasilar lung atelectasis or infiltrates. 4. Diffuse infiltration of the mesentery and peritoneum suspicious for peritoneal metastasis. 5. Cystic structure identified in the right kidney measuring 3.2 cm likely cyst or cystic lesion. NARCISO VALDOVINOS MD Oct 20, 2021 09:28
--- NOTE | 2021-10-20 09:29 | PDOC2 ---
[employer] 10/20/21 0929: CONSULT Date of Consult Date of Consult DATE: 10/20/21 TIME: 09:21 Reason for Consult Reason for Consult: SBO Referring Physician Referring Physician: ER Identification/Chief Complaint Chief Complaint vomiting Source Source: Chart review, Patient History of Present Illness Reason for Visit: Patient well known from previous admissions She discharged last week from [place] to rehab, here with abdominal pain, vomiting, diarrhea. Imaging and clinically improved. Returned with 5 days of worsening pain, diarrhea, vomiting. Imaging concerning for SBO, possible metastatic disease Currently feels better with NG in place Past Medical History Cardiovascular: HTN, Hyperlipidemia, Valve insufficiency, Other Pulmonary: No pertinent hx GI: Diverticulosis, GERD Heme/Onc: No pertinent hx Hepatobiliary: No pertinent hx Psych: Anxiety Musculoskeletal: low back pain, Osteoarthritis Rheumatologic: No pertinent hx Infectious disease: No pertinent hx Renal/: Chronic renal insuff Endocrine: Osteopenia Past Surgical History Past Surgical History: Appendectomy, Hysterectomy, Colon Resection, Other Family History Family History: No Significant, Other Social History Quit ALCOHOL: rare Drugs: None Lives: with Family Current Problem List Problem List Problems Medical Problems: (1) Acute on chronic renal insufficiency Status: Acute (2) Ascites Status: Acute (3) Chronic diarrhea Status: Acute (4) Chronic vomiting Status: Acute (5) Partial small bowel obstruction Status: Acute Current Medications Current Medications Current Medications Sodium Chloride 1,000 ml @ 1,000 mls/hr 1X ONCE IV Last administered on 10/19/21at 12:48; Start 10/19/21 at 12:00; Stop 10/19/21 at 12:59; Status DC Ondansetron HCl (Zofran) 4 mg 1X ONCE IVP Last administered on 10/19/21at 13:03; Start 10/19/21 at 12:00; Stop 10/19/21 at 12:05; Status DC Fentanyl Citrate (Fentanyl 2ml Vial) 50 mcg 1X ONCE IVP Last administered on 10/19/21at 13:03; Start 10/19/21 at 12:00; Stop 10/19/21 at 12:05; Status DC Piperacillin Sod/ Tazobactam Sod 2.25 gm/Sodium Chloride 50 ml @ 100 mls/hr 1X ONCE IV Last administered on 10/19/21at 14:13; Start 10/19/21 at 13:15; Stop 10/19/21 at 13:44; Status DC Ondansetron HCl (Zofran) 4 mg PRN Q8HRS PRN IVP NAUSEA/VOMITING Last administered on 10/19/21at 22:52; Start 10/19/21 at 16:30; Stop 10/20/21 at 16:29 Morphine Sulfate (Morphine Sulfate) 2 mg PRN Q2HR PRN IVP PAIN Last administered on 10/20/21at 03:48; Start 10/19/21 at 16:30; Stop 10/20/21 at 16:29 Pantoprazole Sodium (PROTONIX VIAL for IV PUSH) 40 mg BIDAC IVP Last administered on 10/20/21at 08:51; Start 10/19/21 at 17:30 Pharmacy Consult ([place] Med Screen By Rx) 1 each 1X ONCE [facility] ; Start 10/20/21 at 04:00; Stop 10/20/21 at 04:01; Status Cancel Sodium Chloride 1,000 ml @ 75 mls/hr [id number] IV Last administered on 10/20/21at 08:52; Start 10/20/21 at 08:45 Active Scripts Active Ondansetron Odt (Ondansetron) 4 Mg Tab.rapdis 1 Tab PO PRN Q6-8HRS Dicyclomine Hcl 10 Mg Capsule 10 Mg PO PRN QID PRN Reported Stool Softener (Docusate Sodium) 50 Mg Capsule 1 Cap PO DAILY PRN 30 Days Tylenol (Acetaminophen) 325 Mg Tablet 1-2 Tab PO HS Perphen-Amitrip 2 Mg-10 Mg Tab (Perphenazine/Amitriptyline Hcl) 1 Each Tablet 1 Tab PO QHS Methotrexate (Methotrexate Sodium) 2.5 Mg Tablet 10 Tab PO TUESDAY Folic Acid 0.8 Mg Capsule 1 Cap PO DAILY 30 Days Vitamin D3 (Vitamin D) 25 Mcg Tablet 25 Mcg PO DAILY 1,000 UNITS = 25 MCG Amlodipine Besylate 2.5 Mg Tablet 2.5 Mg PO DAILY Vit C-Quyen Hips 500 mg Chew Tb (Ascorbic Acid/Ascorbate Sodium) 500 Mg Tab.chew 500 Mg PO DAILY Probiotic Acidophilus (Lactobacillus Acidophilus) 1 Each Tablet 1 Each PO DAILY Metoprolol Tartrate 50 Mg Tablet 50 Mg PO BID Omeprazole 20 Mg Tablet.dr 20 Mg PO DAILY Multivitamins (Multivitamin) 1 Each Tablet 1 Tab PO DAILY Allergies Allergies: Coded Allergies: adhesive (Verified Allergy, Intermediate, Rash, 10/19/21) ROS General: YES: Fatigue; No: Chills PSYCHOLOGICAL ROS: No: Anxiety, Depression Eyes: No Blurry vision, No Double vision HEENT: No: Heacaches, Sore Throat Hematological and Lymphatic: No: Bleeding Problems, Blood Clots Respiratory: No: Cough, Shortness of breath Cardiovascular: No Chest Pain, No Palpitations Gastrointestinal: Yes Other (see hpi) Genitourinary: No Dysuria, No Hematuria Musculoskeletal: No Joint Pain, No Muscle Pain Neurological: No Impaired Coord/balance, No Numbness/Tingling Skin: No Pruritus, No Rash Physical Exam General: Alert, Oriented X3, Cooperative HEENT: Atraumatic, Other (NG in place) Lungs: Clear to auscultation, Normal air movement Heart: Other (tachy) Abdomen: Soft, Other (ttp mid abdomen, multiple abdominal scars) Extremities: No clubbing, No cyanosis Skin: No rashes, No breakdown Neuro: Normal gait, Normal speech, Normal tone, Sensation intact, Reflexes 2+ MUSCULOSKELETAL: No deformity, No swelling Vitals VITALS Vital Signs Date Time Temp Pulse Resp B/P (MAP) Pulse Ox O2 Delivery O2 Flow Rate FiO2 10/20/21 07:00 97.7 112 18 126/57 (80) 98 Room Air 97.7 Labs Labs Laboratory Tests Test 10/19/21 11:20 10/19/21 11:25 10/20/21 07:15 White Blood Count 13.9 x10^3/uL (4.0-11.0) 12.3 x10^3/uL (4.0-11.0) Red Blood Count 3.47 x10^6/uL (3.50-5.40) 2.97 x10^6/uL (3.50-5.40) Hemoglobin 10.7 g/dL (12.0-15.5) 9.2 g/dL (12.0-15.5) Hematocrit 33.6 % (36.0-47.0) 28.5 % (36.0-47.0) Mean Corpuscular Volume 97 fL (79-100) 96 fL (79-100) Mean Corpuscular Hemoglobin 31 pg (25-35) 31 pg (25-35) Mean Corpuscular Hemoglobin Concent 32 g/dL (31-37) 32 g/dL (31-37) Red Cell Distribution Width 15.3 % (11.5-14.5) 15.4 % (11.5-14.5) Platelet Count 664 x10^3/uL (140-400) 569 x10^3/uL (140-400) Neutrophils (%) (Auto) 74 % (31-73) 78 % (31-73) Lymphocytes (%) (Auto) 17 % (24-48) 14 % (24-48) Monocytes (%) (Auto) 8 % (0-9) 9 % (0-9) Eosinophils (%) (Auto) 0 % (0-3) 0 % (0-3) Basophils (%) (Auto) 0 % (0-3) 0 % (0-3) Neutrophils # (Auto) 10.3 x10^3/uL (1.8-7.7) 9.6 x10^3/uL (1.8-7.7) Lymphocytes # (Auto) 2.4 x10^3/uL (1.0-4.8) 1.7 x10^3/uL (1.0-4.8) Monocytes # (Auto) 1.2 x10^3/uL (0.0-1.1) 1.0 x10^3/uL (0.0-1.1) Eosinophils # (Auto) 0.0 x10^3/uL (0.0-0.7) 0.0 x10^3/uL (0.0-0.7) Basophils # (Auto) 0.1 x10^3/uL (0.0-0.2) 0.0 x10^3/uL (0.0-0.2) Lactic Acid Level 1.5 mmol/L (0.4-2.0) Iron Level 15 ug/dL (50-170) Total Iron Binding Capacity 152 ug/dL (250-450) Iron Saturation 10 % (15-34) Vitamin B12 Level 970 pg/mL (247-911) Sodium Level 145 mmol/L (136-145) 147 mmol/L (136-145) Potassium Level 4.1 mmol/L (3.5-5.1) 3.9 mmol/L (3.5-5.1) Chloride Level 101 mmol/L (98-107) 107 mmol/L (98-107) Carbon Dioxide Level 24 mmol/L (21-32) 27 mmol/L (21-32) Anion Gap 20 (6-14) 13 (6-14) Blood Urea Nitrogen 62 mg/dL (7-20) 57 mg/dL (7-20) Creatinine 2.3 mg/dL (0.6-1.0) 2.1 mg/dL (0.6-1.0) Estimated GFR (Cockcroft-Gault) 20.3 22.5 BUN/Creatinine Ratio 27 (6-20) Glucose Level 120 mg/dL (70-99) 113 mg/dL (70-99) Calcium Level 8.5 mg/dL (8.5-10.1) 8.2 mg/dL (8.5-10.1) Total Bilirubin 0.4 mg/dL (0.2-1.0) Aspartate Amino Transf (AST/SGOT) 22 U/L (15-37) Alanine Aminotransferase (ALT/SGPT) 26 U/L (14-59) Alkaline Phosphatase 49 U/L (46-116) Troponin I High Sensitivity 19 ng/L (4-50) XT-Eth-S-Type Natriuretic Peptide 673 pg/mL (0-449) Total Protein 6.3 g/dL (6.4-8.2) Albumin 2.5 g/dL (3.4-5.0) Albumin/Globulin Ratio 0.7 (1.0-1.7) Lipase 372 U/L (73-393) Laboratory Tests Test 10/19/21 11:20 10/19/21 11:25 10/20/21 07:15 White Blood Count 13.9 x10^3/uL (4.0-11.0) 12.3 x10^3/uL (4.0-11.0) Red Blood Count 3.47 x10^6/uL (3.50-5.40) 2.97 x10^6/uL (3.50-5.40) Hemoglobin 10.7 g/dL (12.0-15.5) 9.2 g/dL (12.0-15.5) Hematocrit 33.6 % (36.0-47.0) 28.5 % (36.0-47.0) Mean Corpuscular Volume 97 fL (79-100) 96 fL (79-100) Mean Corpuscular Hemoglobin 31 pg (25-35) 31 pg (25-35) Mean Corpuscular Hemoglobin Concent 32 g/dL (31-37) 32 g/dL (31-37) Red Cell Distribution Width 15.3 % (11.5-14.5) 15.4 % (11.5-14.5) Platelet Count 664 x10^3/uL (140-400) 569 x10^3/uL (140-400) Neutrophils (%) (Auto) 74 % (31-73) 78 % (31-73) Lymphocytes (%) (Auto) 17 % (24-48) 14 % (24-48) Monocytes (%) (Auto) 8 % (0-9) 9 % (0-9) Eosinophils (%) (Auto) 0 % (0-3) 0 % (0-3) Basophils (%) (Auto) 0 % (0-3) 0 % (0-3) Neutrophils # (Auto) 10.3 x10^3/uL (1.8-7.7) 9.6 x10^3/uL (1.8-7.7) Lymphocytes # (Auto) 2.4 x10^3/uL (1.0-4.8) 1.7 x10^3/uL (1.0-4.8) Monocytes # (Auto) 1.2 x10^3/uL (0.0-1.1) 1.0 x10^3/uL (0.0-1.1) Eosinophils # (Auto) 0.0 x10^3/uL (0.0-0.7) 0.0 x10^3/uL (0.0-0.7) Basophils # (Auto) 0.1 x10^3/uL (0.0-0.2) 0.0 x10^3/uL (0.0-0.2) Lactic Acid Level 1.5 mmol/L (0.4-2.0) Iron Level 15 ug/dL (50-170) Total Iron Binding Capacity 152 ug/dL (250-450) Iron Saturation 10 % (15-34) Vitamin B12 Level 970 pg/mL (247-911) Sodium Level 145 mmol/L (136-145) 147 mmol/L (136-145) Potassium Level 4.1 mmol/L (3.5-5.1) 3.9 mmol/L (3.5-5.1) Chloride Level 101 mmol/L (98-107) 107 mmol/L (98-107) Carbon Dioxide Level 24 mmol/L (21-32) 27 mmol/L (21-32) Anion Gap 20 (6-14) 13 (6-14) Blood Urea Nitrogen 62 mg/dL (7-20) 57 mg/dL (7-20) Creatinine 2.3 mg/dL (0.6-1.0) 2.1 mg/dL (0.6-1.0) Estimated GFR (Cockcroft-Gault) 20.3 22.5 BUN/Creatinine Ratio 27 (6-20) Glucose Level 120 mg/dL (70-99) 113 mg/dL (70-99) Calcium Level 8.5 mg/dL (8.5-10.1) 8.2 mg/dL (8.5-10.1) Total Bilirubin 0.4 mg/dL (0.2-1.0) Aspartate Amino Transf (AST/SGOT) 22 U/L (15-37) Alanine Aminotransferase (ALT/SGPT) 26 U/L (14-59) Alkaline Phosphatase 49 U/L (46-116) Troponin I High Sensitivity 19 ng/L (4-50) TR-Irc-X-Type Natriuretic Peptide 673 pg/mL (0-449) Total Protein 6.3 g/dL (6.4-8.2) Albumin 2.5 g/dL (3.4-5.0) Albumin/Globulin Ratio 0.7 (1.0-1.7) Lipase 372 U/L (73-393) Assessment/Plan Assessment/Plan SBO vs ileus, abdominal pain, diarrhea noncontrasted CT concerning now for a metastatic disease--agree with oncology consult--ordered ca 125, cea, ca 19-9 SBFT ordered Will review with ZEYNEP Subramanian MD 10/20/21 1702: CONSULT Assessment/Plan Assessment/Plan Pt seen and examined. Agree with Ms. Cervantes's note Pt feels much better pending NGT placement abd full, mild diffuse TTP clinical history c/w concern for metastatic disease will check labs and SBFT Thanks for consult! MINGO CERVANTES APRN Oct 20, 2021 09:29 ZEYNEP GARCIA MD Oct 20, 2021 13:08
[2021-10-20] MEDS ORDERED: IOHEXOL 300 MG/ML 100ML VIAL. IJ ONE (09:45)
[2021-10-20] MEDS ORDERED: CONTRAST GIVEN. MC PRN (09:45)
--- NOTE | 2021-10-20 09:50 | RAD ---
EXAM: Abdomen series, 3 views. HISTORY: Small bowel obstruction. COMPARISON: 10/19/2021 FINDINGS: A frontal view of the chest and frontal upright and supine views of the abdomen are obtaine d. There are moderate right and small left pleural effusions. There is right greater than left lower lobe infiltrate. The heart is normal in size. There is no pneumothorax. There is a nasogastric tube w ithin the proximal stomach. The side-port is at the gastroesophageal junction. There are nondistended air-filled loops of bowel within the abdomen. The recently demonstrated distended small bowel loops are likely fluid-filled. No convincing transition point is seen. There is degenerative change involvi ng the lower lumbar spine. IMPRESSION: 1. Suspected distended fluid-filled loops of small bowel within the lower abdomen and pelvis. No conv incing transition point is seen and no distended air-filled bowel loop is seen. 2. Nasogastric tube with the side-port at the gastroesophageal junction. Slight tube advancement is r ecommended. 3. Moderate right and small left pleural effusions with bilateral lower lobe infiltrate. Electronically signed by: Connie Melendez MD (10/20/2021 9:47 AM) [id number]
--- NOTE | 2021-10-20 10:44 | EKG ---
[facility] [address] [place] [address] Test Date: 2021-10-19 Test Time: 13:16:54 Pat Name: OLI MARISCAL Department: Room: Gender: F Contract Loader: : [id number] Requested By: ROSANNA GRAY Order Number: [id number] Reading MD: Measurements Intervals [place] Rate: 110 P: 90 NV: 136 QRS: 77 QRSD: 70 T: 65 QT: 328 QTc: 449 Interpretive Statements SINUS TACHYCARDIA NO SPECIFIC ECG ABNORMALITIES RI6.02 No previous ECG available for comparison
--- NOTE | 2021-10-20 10:45 | PDOC ---
[employer] PROGRESS NOTE Date of Service DOS: DATE: 10/20/21 TIME: 10:44 Chief Complaint Chief Complaint SBO Peritoneal seeding suspect cancer Nausea vomiting Anxiety, anemia, diverticulitis, hypertension, renal failure, UTI, mitral valve prolapse, cataracts, colostomy, hysterectomy, previous tobacco abuse. History of Present Illness History of Present Illness 10/20/2021 Patient seen and examined We had to place an NG She states she feels better with the NG to suction Discussed with RN Chart reviewed Vitals/I&O Vitals/I&O: Vital Signs Date Time Temp Pulse Resp B/P (MAP) Pulse Ox O2 Delivery O2 Flow Rate FiO2 10/20/21 08:00 Room Air 10/20/21 07:00 97.7 112 18 126/57 (80) 98 97.7 I & O 10/19/21 10/19/21 10/20/21 15:00 23:00 07:00 Intake Total 1050 ml 0 ml Output Total 500 ml Balance 1050 ml 0 ml -500 ml Physical Exam General: Alert, Oriented X3, Cooperative Heart: Other (tachy) Lungs: Clear Abdomen: Soft, Other (ttp mid abdomen, multiple abdominal scars) Extremities: No clubbing, No cyanosis Skin: No rashes, No breakdown Labs Labs: Laboratory Tests Test 10/19/21 11:20 10/19/21 11:25 10/20/21 07:15 White Blood Count 13.9 x10^3/uL (4.0-11.0) 12.3 x10^3/uL (4.0-11.0) Red Blood Count 3.47 x10^6/uL (3.50-5.40) 2.97 x10^6/uL (3.50-5.40) Hemoglobin 10.7 g/dL (12.0-15.5) 9.2 g/dL (12.0-15.5) Hematocrit 33.6 % (36.0-47.0) 28.5 % (36.0-47.0) Mean Corpuscular Volume 97 fL (79-100) 96 fL (79-100) Mean Corpuscular Hemoglobin 31 pg (25-35) 31 pg (25-35) Mean Corpuscular Hemoglobin Concent 32 g/dL (31-37) 32 g/dL (31-37) Red Cell Distribution Width 15.3 % (11.5-14.5) 15.4 % (11.5-14.5) Platelet Count 664 x10^3/uL (140-400) 569 x10^3/uL (140-400) Neutrophils (%) (Auto) 74 % (31-73) 78 % (31-73) Lymphocytes (%) (Auto) 17 % (24-48) 14 % (24-48) Monocytes (%) (Auto) 8 % (0-9) 9 % (0-9) Eosinophils (%) (Auto) 0 % (0-3) 0 % (0-3) Basophils (%) (Auto) 0 % (0-3) 0 % (0-3) Neutrophils # (Auto) 10.3 x10^3/uL (1.8-7.7) 9.6 x10^3/uL (1.8-7.7) Lymphocytes # (Auto) 2.4 x10^3/uL (1.0-4.8) 1.7 x10^3/uL (1.0-4.8) Monocytes # (Auto) 1.2 x10^3/uL (0.0-1.1) 1.0 x10^3/uL (0.0-1.1) Eosinophils # (Auto) 0.0 x10^3/uL (0.0-0.7) 0.0 x10^3/uL (0.0-0.7) Basophils # (Auto) 0.1 x10^3/uL (0.0-0.2) 0.0 x10^3/uL (0.0-0.2) Lactic Acid Level 1.5 mmol/L (0.4-2.0) Iron Level 15 ug/dL (50-170) Total Iron Binding Capacity 152 ug/dL (250-450) Iron Saturation 10 % (15-34) Vitamin B12 Level 970 pg/mL (247-911) Sodium Level 145 mmol/L (136-145) 147 mmol/L (136-145) Potassium Level 4.1 mmol/L (3.5-5.1) 3.9 mmol/L (3.5-5.1) Chloride Level 101 mmol/L (98-107) 107 mmol/L (98-107) Carbon Dioxide Level 24 mmol/L (21-32) 27 mmol/L (21-32) Anion Gap 20 (6-14) 13 (6-14) Blood Urea Nitrogen 62 mg/dL (7-20) 57 mg/dL (7-20) Creatinine 2.3 mg/dL (0.6-1.0) 2.1 mg/dL (0.6-1.0) Estimated GFR (Cockcroft-Gault) 20.3 22.5 BUN/Creatinine Ratio 27 (6-20) Glucose Level 120 mg/dL (70-99) 113 mg/dL (70-99) Calcium Level 8.5 mg/dL (8.5-10.1) 8.2 mg/dL (8.5-10.1) Total Bilirubin 0.4 mg/dL (0.2-1.0) Aspartate Amino Transf (AST/SGOT) 22 U/L (15-37) Alanine Aminotransferase (ALT/SGPT) 26 U/L (14-59) Alkaline Phosphatase 49 U/L (46-116) Troponin I High Sensitivity 19 ng/L (4-50) TN-Vve-C-Type Natriuretic Peptide 673 pg/mL (0-449) Total Protein 6.3 g/dL (6.4-8.2) Albumin 2.5 g/dL (3.4-5.0) Albumin/Globulin Ratio 0.7 (1.0-1.7) Lipase 372 U/L (73-393) Assessment and Plan Assessmemt and Plan Problems Medical Problems: (1) Acute on chronic renal insufficiency Status: Acute (2) Ascites Status: Acute (3) Chronic diarrhea Status: Acute (4) Chronic vomiting Status: Acute (5) Partial small bowel obstruction Status: Acute SBO 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 Plan Cardiac monitoring Continue NG suctioning Possible malignancy work-up in progress Agree with CA 19-9 and CA-125 levels ordered by general surgery IV fluids As needed Zofran As needed morphine Home meds when possible DVT prophylaxis Full code Await oncology input Prognosis guarded Per nephrology input please see the following and we certainly agree and appreciate their input; Assessment & Plan YA- Vasomotor 2/2 Dehydration- Diarrhea/Vomiting, Low BP POA , Non Oliguric; Creat improving . Supportive care, continue IVF , Avoid nephrotoxins , strict I/O CKD stage 3- Baseline Cr 1.4-1.6. Intermittent YA during Hospitalization at [facility] . Reviewed recent labs 09/22/21 from our office records Creat was 1.5 . She follows with us as OP . Will review records Right renal cyst- Cystic structure identified in the right kidney measuring 3.2 cm likely cyst or cystic lesion.Radiologist didint specify if simple cyst or concerning . US earlier this year reported bilateral renal cyst 3.4 cm anechoic exophytic cyst in the lower pole of Rt Kidney . CT in 2018 reported 2.7 cm cust in Rt Kidney . No sure if radiologist have compared all the imaging HyperNatremia Mild, Monitor,if persistent switch to hypotonic fluid Vomiting -feeling better w/ NGT Abnormal CT: multiple dilated and fluid distended proximal and mid SB loops with collapsed SB loops distally with a small knuckle of bowel abutting the anterior abdominal wall hernia, hypodense liver lesions, diffuse infiltration of the mesentery. Defer to primary/GI Pleural effusion - moderate right pleural effusion and small left pleural effusion with mild bibasilar lung atelectasis or infiltrates, and peritoneum Anemia- Hgb stable <10 Status loop ileostomy after low anterior resection Takedown of her protective loop ileostomy. She had a low anterior resection almost 2-3 years ago takedown Comment Review of Relevant I have reviewed the following items mariusz (where applicable) has been applied. Medications: Current Medications Medications (Trade) Dose Ordered Sig/Ella Route PRN Reason Start Time Stop Time Status Last Admin Dose Admin Sodium Chloride 1,000 ml @ 1,000 mls/hr 1X ONCE IV 10/19/21 12:00 10/19/21 12:59 DC 10/19/21 12:48 Ondansetron HCl (Zofran) 4 mg 1X ONCE IVP 10/19/21 12:00 10/19/21 12:05 DC 10/19/21 13:03 Fentanyl Citrate (Fentanyl 2ml Vial) 50 mcg 1X ONCE IVP 10/19/21 12:00 10/19/21 12:05 DC 10/19/21 13:03 Piperacillin Sod/ Tazobactam Sod 2.25 gm/Sodium Chloride 50 ml @ 100 mls/hr 1X ONCE IV 10/19/21 13:15 10/19/21 13:44 DC 10/19/21 14:13 Ondansetron HCl (Zofran) 4 mg PRN Q8HRS PRN IVP NAUSEA/VOMITING 10/19/21 16:30 10/20/21 16:29 10/19/21 22:52 Morphine Sulfate (Morphine Sulfate) 2 mg PRN Q2HR PRN IVP PAIN 10/19/21 16:30 10/20/21 16:29 10/20/21 03:48 Pantoprazole Sodium (PROTONIX VIAL for IV PUSH) 40 mg BIDAC IVP 10/19/21 17:30 10/20/21 08:51 Sodium Chloride 1,000 ml @ 75 mls/hr [id number] IV 10/20/21 08:45 10/20/21 08:52 Justifications for Admission Other Justification ANDER ZIMMERMAN III DO Oct 20, 2021 10:45
--- NOTE | 2021-10-20 10:48 | NUR ---
PT/OT request for orders: Screen indicates need for PT/OT. Please order if you agree. Loyd Harper PT
[2021-10-20 11:00] VITALS: BP 123/55
--- NOTE | 2021-10-20 12:52 | NUR ---
SS following for discharge planning. SS reviewed pt chart and discussed with pt RN. Pt is skilled rehabilitation resident from [facility], ; fax [phone]. COVID19 recovered. GI, Manthravadi, and surgery consulted. NPO. NG tube in place. Small Bowel Series ordered. Not medically ready for PT/OT at this time. [facility] reported that they will accept back when medically ready and able to participate in PT/OT. SS will continue to follow for discharge planning.
[2021-10-20 15:00] VITALS: BP 124/58
[2021-10-20 18:53] VITALS: BP 123/59
[2021-10-20 22:19] VITALS: BP 122/74
[2021-10-21 02:05] VITALS: BP 119/52
[2021-10-21 04:28] LABS: HEMATOCRIT 29.6 % (36.0-47.0); HEMOGLOBIN 9.6 g/dL (12.0-15.5); RED BLOOD COUNT 3.05 x10^6/uL (3.50-5.40); RED CELL DISTRIBUTION WIDTH 15.4 % (11.5-14.5); WHITE BLOOD COUNT 8.4 x10^3/uL (4.0-11.0)
[2021-10-21 04:37] LABS: CALCIUM 8.4 mg/dL (8.5-10.1); CREATININE 1.8 mg/dL (0.6-1.0); GFR 26.9
--- NOTE | 2021-10-21 05:46 | NUR ---
Patient NPO. IV stick attempted by 3 RNs and nsg supervisor record press unsuccessfully. Dr. Reed gave telephone order for Midline 10/21. Patient relieved and agreeable.
[2021-10-21 07:00] VITALS: BP 148/63
[2021-10-21 07:07] LABS: BILIRUBIN,URINE MODERATE (NEG); CLARITY,URINE CLEAR; COLOR,URINE YELLOW; NITRITE,URINE NEGATIVE (NEG); PH,URINE 5.5 (<5.0-8.0); PROTEIN,URINE 30 mg/dL (NEG-TRACE); UROBILINOGEN,URINE 0.2 mg/dL (0.2 mg/dL)
[2021-10-21 07:08] LABS: BACTERIA,URINE FEW /HPF (0-FEW); RBC,URINE OCC /HPF (0-2); WBC,URINE RARE /HPF (0-4)
[2021-10-21] MEDS ORDERED: MORPHINE SULFATE 2 MG/ML INJ. IM ONE (08:45)
--- NOTE | 2021-10-21 09:30 | PDOC ---
MINGO CERVANTES WELT SOLE LAYER 10/21/21 0930: SURGICAL PROGRESS NOTE DATE: 10/21/21 TIME: 09:29 Subjective abdominal pain no bowel function no flatus Vital Signs Vital Signs Date Time Temp Pulse Resp B/P (MAP) Pulse Ox O2 Delivery O2 Flow Rate FiO2 10/21/21 07:00 97.9 120 18 148/63 (91) 96 Room Air 97.9 I&O Intake and Output 10/21/21 07:00 Intake Total 0 ml Output Total 3750 ml Balance -3750 ml Intake Oral 0 ml Output Urine Total 550 ml Gastric Drainage Total 800 ml Drainage Total 2400 ml General: Alert, Cooperative HEENT: Other (ng in place) Abdomen: Other (distended, moderate ttp) Labs Laboratory Tests Test 10/19/21 11:20 10/19/21 11:25 10/20/21 07:15 10/21/21 03:00 White Blood Count 13.9 x10^3/uL (4.0-11.0) 12.3 x10^3/uL (4.0-11.0) 8.4 x10^3/uL (4.0-11.0) Red Blood Count 3.47 x10^6/uL (3.50-5.40) 2.97 x10^6/uL (3.50-5.40) 3.05 x10^6/uL (3.50-5.40) Hemoglobin 10.7 g/dL (12.0-15.5) 9.2 g/dL (12.0-15.5) 9.6 g/dL (12.0-15.5) Hematocrit 33.6 % (36.0-47.0) 28.5 % (36.0-47.0) 29.6 % (36.0-47.0) Mean Corpuscular Volume 97 fL (79-100) 96 fL (79-100) 97 fL (79-100) Mean Corpuscular Hemoglobin 31 pg (25-35) 31 pg (25-35) 31 pg (25-35) Mean Corpuscular Hemoglobin Concent 32 g/dL (31-37) 32 g/dL (31-37) 32 g/dL (31-37) Red Cell Distribution Width 15.3 % (11.5-14.5) 15.4 % (11.5-14.5) 15.4 % (11.5-14.5) Platelet Count 664 x10^3/uL (140-400) 569 x10^3/uL (140-400) 594 x10^3/uL (140-400) Neutrophils (%) (Auto) 74 % (31-73) 78 % (31-73) Lymphocytes (%) (Auto) 17 % (24-48) 14 % (24-48) Monocytes (%) (Auto) 8 % (0-9) 9 % (0-9) Eosinophils (%) (Auto) 0 % (0-3) 0 % (0-3) Basophils (%) (Auto) 0 % (0-3) 0 % (0-3) Neutrophils # (Auto) 10.3 x10^3/uL (1.8-7.7) 9.6 x10^3/uL (1.8-7.7) Lymphocytes # (Auto) 2.4 x10^3/uL (1.0-4.8) 1.7 x10^3/uL (1.0-4.8) Monocytes # (Auto) 1.2 x10^3/uL (0.0-1.1) 1.0 x10^3/uL (0.0-1.1) Eosinophils # (Auto) 0.0 x10^3/uL (0.0-0.7) 0.0 x10^3/uL (0.0-0.7) Basophils # (Auto) 0.1 x10^3/uL (0.0-0.2) 0.0 x10^3/uL (0.0-0.2) Lactic Acid Level 1.5 mmol/L (0.4-2.0) Iron Level 15 ug/dL (50-170) Total Iron Binding Capacity 152 ug/dL (250-450) Iron Saturation 10 % (15-34) Vitamin B12 Level 970 pg/mL (247-911) Sodium Level 145 mmol/L (136-145) 147 mmol/L (136-145) 150 mmol/L (136-145) Potassium Level 4.1 mmol/L (3.5-5.1) 3.9 mmol/L (3.5-5.1) 4.0 mmol/L (3.5-5.1) Chloride Level 101 mmol/L (98-107) 107 mmol/L (98-107) 109 mmol/L (98-107) Carbon Dioxide Level 24 mmol/L (21-32) 27 mmol/L (21-32) 26 mmol/L (21-32) Anion Gap 20 (6-14) 13 (6-14) 15 (6-14) Blood Urea Nitrogen 62 mg/dL (7-20) 57 mg/dL (7-20) 48 mg/dL (7-20) Creatinine 2.3 mg/dL (0.6-1.0) 2.1 mg/dL (0.6-1.0) 1.8 mg/dL (0.6-1.0) Estimated GFR (Cockcroft-Gault) 20.3 22.5 26.9 BUN/Creatinine Ratio 27 (6-20) Glucose Level 120 mg/dL (70-99) 113 mg/dL (70-99) 102 mg/dL (70-99) Calcium Level 8.5 mg/dL (8.5-10.1) 8.2 mg/dL (8.5-10.1) 8.4 mg/dL (8.5-10.1) Total Bilirubin 0.4 mg/dL (0.2-1.0) Aspartate Amino Transf (AST/SGOT) 22 U/L (15-37) Alanine Aminotransferase (ALT/SGPT) 26 U/L (14-59) Alkaline Phosphatase 49 U/L (46-116) Troponin I High Sensitivity 19 ng/L (4-50) II-Iyj-B-Type Natriuretic Peptide 673 pg/mL (0-449) Total Protein 6.3 g/dL (6.4-8.2) Albumin 2.5 g/dL (3.4-5.0) Albumin/Globulin Ratio 0.7 (1.0-1.7) Lipase 372 U/L (73-393) CA 125 Antigen 582.0 U/mL (0.0-38.1) Test 10/21/21 06:10 Urine Collection Type U cath Urine Color Yellow Urine Clarity Clear Urine pH 5.5 (<5.0-8.0) Urine Specific [place] 1.015 (1.000-1.030) Urine Protein 30 mg/dL (NEG-TRACE) Urine Glucose (UA) Negative mg/dL (NEG) Urine Ketones (Stick) 40 mg/dL (NEG) Urine Blood Trace (NEG) Urine Nitrite Negative (NEG) Urine Bilirubin Moderate (NEG) Urine Urobilinogen Dipstick 0.2 mg/dL (0.2 mg/dL) Urine Leukocyte Esterase Negative (NEG) Urine RBC Occ /HPF (0-2) Urine WBC Rare /HPF (0-4) Urine Squamous Epithelial Cells Occ /LPF Urine Bacteria Few /HPF (0-FEW) Laboratory Tests Test 10/21/21 03:00 10/21/21 06:10 White Blood Count 8.4 x10^3/uL (4.0-11.0) Red Blood Count 3.05 x10^6/uL (3.50-5.40) Hemoglobin 9.6 g/dL (12.0-15.5) Hematocrit 29.6 % (36.0-47.0) Mean Corpuscular Volume 97 fL (79-100) Mean Corpuscular Hemoglobin 31 pg (25-35) Mean Corpuscular Hemoglobin Concent 32 g/dL (31-37) Red Cell Distribution Width 15.4 % (11.5-14.5) Platelet Count 594 x10^3/uL (140-400) Sodium Level 150 mmol/L (136-145) Potassium Level 4.0 mmol/L (3.5-5.1) Chloride Level 109 mmol/L (98-107) Carbon Dioxide Level 26 mmol/L (21-32) Anion Gap 15 (6-14) Blood Urea Nitrogen 48 mg/dL (7-20) Creatinine 1.8 mg/dL (0.6-1.0) Estimated GFR (Cockcroft-Gault) 26.9 Glucose Level 102 mg/dL (70-99) Calcium Level 8.4 mg/dL (8.5-10.1) Urine Collection Type U cath Urine Color Yellow Urine Clarity Clear Urine pH 5.5 (<5.0-8.0) Urine Specific [place] 1.015 (1.000-1.030) Urine Protein 30 mg/dL (NEG-TRACE) Urine Glucose (UA) Negative mg/dL (NEG) Urine Ketones (Stick) 40 mg/dL (NEG) Urine Blood Trace (NEG) Urine Nitrite Negative (NEG) Urine Bilirubin Moderate (NEG) Urine Urobilinogen Dipstick 0.2 mg/dL (0.2 mg/dL) Urine Leukocyte Esterase Negative (NEG) Urine RBC Occ /HPF (0-2) Urine WBC Rare /HPF (0-4) Urine Squamous Epithelial Cells Occ /LPF Urine Bacteria Few /HPF (0-FEW) Problem List Problems Medical Problems: (1) Acute on chronic renal insufficiency Status: Acute (2) Ascites Status: Acute (3) Chronic diarrhea Status: Acute (4) Chronic vomiting Status: Acute (5) Partial small bowel obstruction Status: Acute Assessment/Plan tachy SBFT pending, however continues to have obstructed appearance, with current findings likely not a surgical candidate may need to consider comfort measures Justicifation of Admission Dx: Justifications for Admission: Justification of Admission Dx: Yes ZEYNEP GARCIA MD 10/21/21 0949: SURGICAL PROGRESS NOTE Assessment/Plan Pt seen and examined. Agree with Ms. 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
--- NOTE | 2021-10-21 09:53 | PDOC ---
Date of Service: DATE: 10/21/21 TIME: 09:45 Subjective: Subjective: Doesn't feel well - IV issues, hasn't had pain meds for abdominal pain, no flatus or stool. Objective: Objective: Orders for midline. Reviewed surgery note - imaging pending but poor surgical candidate, may need to consider comfort measures. Vital Signs: Vital Signs Date Time Temp Pulse Resp B/P (MAP) Pulse Ox O2 Delivery O2 Flow Rate FiO2 10/21/21 07:00 97.9 120 18 148/63 (91) 96 Room Air 97.9 Labs: Laboratory Tests Test 10/21/21 03:00 10/21/21 06:10 White Blood Count 8.4 x10^3/uL Red Blood Count 3.05 x10^6/uL Hemoglobin 9.6 g/dL Hematocrit 29.6 % Mean Corpuscular Volume 97 fL Mean Corpuscular Hemoglobin 31 pg Mean Corpuscular Hemoglobin Concent 32 g/dL Red Cell Distribution Width 15.4 % Platelet Count 594 x10^3/uL Sodium Level 150 mmol/L Potassium Level 4.0 mmol/L Chloride Level 109 mmol/L Carbon Dioxide Level 26 mmol/L Anion Gap 15 Blood Urea Nitrogen 48 mg/dL Creatinine 1.8 mg/dL Estimated GFR (Cockcroft-Gault) 26.9 Glucose Level 102 mg/dL Calcium Level 8.4 mg/dL Urine Collection Type U cath Urine Color Yellow Urine Clarity Clear Urine pH 5.5 Urine Specific [place] 1.015 Urine Protein 30 mg/dL Urine Glucose (UA) Negative mg/dL Urine Ketones (Stick) 40 mg/dL Urine Blood Trace Urine Nitrite Negative Urine Bilirubin Moderate Urine Urobilinogen Dipstick 0.2 mg/dL Urine Leukocyte Esterase Negative Urine RBC Occ /HPF Urine WBC Rare /HPF Urine Squamous Epithelial Cells Occ /LPF Urine Bacteria Few /HPF BLOOD CULTURE Preliminary NO GROWTH AFTER 1 DAY Imaging: AAS 10/20 IMPRESSION: 1. Suspected distended fluid-filled loops of small bowel within the lower abdomen and pelvis. No convincing transition point is seen and no distended air- filled bowel loop is seen. 2. Nasogastric tube with the side-port at the gastroesophageal junction. Slight tube advancement is recommended. 3. Moderate right and small left pleural effusions with bilateral lower lobe infiltrate. SBS 10/20 pending PE: GEN: NAD LUNGS: diminished, room air HEART: tachycardic ABD: quiet, diffuse discomfort, less soft, NGT green-brown NEURO/PSYCH: A & O 3 A/P: Concern metastatic disease/SBO JESÚS/ACD (stable), YA (better) Tachycardia -- Goals of care per primary. CEA and CA19-9 pending, CA-125 elevated at 582 - oncology opinion pending. Continue NGT for now. Justicifation of Admission Dx: Justifications for Admission: Justification of Admission Dx: Yes IRASEMA MCCARTY Oct 21, 2021 09:53
--- NOTE | 2021-10-21 10:28 | PDOC ---
[employer] PROGRESS NOTE Date of Service DOS: DATE: 10/21/21 TIME: 10:26 Chief Complaint Chief Complaint SBO Peritoneal seeding suspect cancer Nausea vomiting Anxiety, anemia, diverticulitis, hypertension, renal failure, UTI, mitral valve prolapse, cataracts, colostomy, hysterectomy, previous tobacco abuse. History of Present Illness History of Present Illness 10/21/2021 Patient seen and examined She still feels better with her NG in place CA-125 level is elevated to 582 Discussed with case management Discussed with RN 10/20/2021 Patient seen and examined We had to place an NG She states she feels better with the NG to suction Discussed with RN Chart reviewed Vitals/I&O Vitals/I&O: Vital Signs Date Time Temp Pulse Resp B/P (MAP) Pulse Ox O2 Delivery O2 Flow Rate FiO2 10/21/21 08:00 Room Air 10/21/21 07:00 97.9 120 18 148/63 (91) 96 97.9 I & O 10/20/21 10/20/21 10/21/21 15:00 23:00 07:00 Intake Total 0 ml 0 ml 0 ml Output Total 2100 ml 625 ml 1025 ml Balance -2100 ml -625 ml -1025 ml Physical Exam General: Alert, Cooperative Heart: Other (tachy) Lungs: Clear Abdomen: Other (distended, moderate ttp) Extremities: No clubbing, No cyanosis Skin: No rashes, No breakdown Labs Labs: Laboratory Tests Test 10/21/21 03:00 10/21/21 06:10 White Blood Count 8.4 x10^3/uL (4.0-11.0) Red Blood Count 3.05 x10^6/uL (3.50-5.40) Hemoglobin 9.6 g/dL (12.0-15.5) Hematocrit 29.6 % (36.0-47.0) Mean Corpuscular Volume 97 fL (79-100) Mean Corpuscular Hemoglobin 31 pg (25-35) Mean Corpuscular Hemoglobin Concent 32 g/dL (31-37) Red Cell Distribution Width 15.4 % (11.5-14.5) Platelet Count 594 x10^3/uL (140-400) Sodium Level 150 mmol/L (136-145) Potassium Level 4.0 mmol/L (3.5-5.1) Chloride Level 109 mmol/L (98-107) Carbon Dioxide Level 26 mmol/L (21-32) Anion Gap 15 (6-14) Blood Urea Nitrogen 48 mg/dL (7-20) Creatinine 1.8 mg/dL (0.6-1.0) Estimated GFR (Cockcroft-Gault) 26.9 Glucose Level 102 mg/dL (70-99) Calcium Level 8.4 mg/dL (8.5-10.1) Urine Collection Type U cath Urine Color Yellow Urine Clarity Clear Urine pH 5.5 (<5.0-8.0) Urine Specific [place] 1.015 (1.000-1.030) Urine Protein 30 mg/dL (NEG-TRACE) Urine Glucose (UA) Negative mg/dL (NEG) Urine Ketones (Stick) 40 mg/dL (NEG) Urine Blood Trace (NEG) Urine Nitrite Negative (NEG) Urine Bilirubin Moderate (NEG) Urine Urobilinogen Dipstick 0.2 mg/dL (0.2 mg/dL) Urine Leukocyte Esterase Negative (NEG) Urine RBC Occ /HPF (0-2) Urine WBC Rare /HPF (0-4) Urine Squamous Epithelial Cells Occ /LPF Urine Bacteria Few /HPF (0-FEW) Assessment and Plan Assessmemt and Plan Problems Medical Problems: (1) Acute on chronic renal insufficiency Status: Acute (2) Ascites Status: Acute (3) Chronic diarrhea Status: Acute (4) Chronic vomiting Status: Acute (5) Partial small bowel obstruction Status: Acute SBO 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 Plan Awaiting oncology input We will consult LUMBER PILER as her CA-125 level is high Cardiac monitoring Continue NG suctioning Await CA 19-9 level IV fluids As needed Zofran As needed morphine Home meds when possible DVT prophylaxis Full code Await oncology input Prognosis extremely guarded Comment Review of Relevant I have reviewed the following items mariusz (where applicable) has been applied. Justifications for Admission Other Justification ANDER ZIMMERMAN III DO Oct 21, 2021 10:28
--- NOTE | 2021-10-21 10:44 | PDOC ---
DATE OF SERVICE DATE: 10/21/21 TIME: 10:42 SUBJECTIVE ROS No N/V. States mouth feels dry OBJECTIVE Vital Signs Vital Signs Date Time Temp Pulse Resp B/P (MAP) Pulse Ox O2 Delivery O2 Flow Rate FiO2 10/21/21 08:00 Room Air 10/21/21 07:00 97.9 120 18 148/63 (91) 96 97.9 I & 0 Intake and Output 10/21/21 07:00 Intake Total 0 ml Output Total 3750 ml Balance -3750 ml Intake Oral 0 ml Output Urine Total 550 ml Gastric Drainage Total 800 ml Drainage Total 2400 ml PHYSICAL EXAM Physical Exam GEN: NAD HEEN: OM moist , NG tube in place NECK: Supple CVS: RRR RESP: CTA, No access Muscle use GI: BS + ve, Non Tender, NEURO- Grossly normal SKIN- No Rash Psych Cooperative [place] + 10/19/21; No CVA tenderness, No Suprapubic Tenderness, DIAGNOSIS/ASSESSMENT Assessment & Plan YA- Vasomotor 2/2 Dehydration- Diarrhea/Vomiting, Low BP POA , Non Oliguric; Creat improving . Supportive care, continue IVF , Avoid nephrotoxins , strict I/O CKD stage 3- Baseline Cr 1.4-1.6. Intermittent YA during Hospitalization at [facility] . Reviewed recent labs 09/22/21 from our office records Creat was 1.5 . She follows with us as OP . Last seen February 2021; missed fu appt few weeks back . Right renal cyst- Cystic structure identified in the right kidney measuring 3.2 cm likely cyst or cystic lesion.Radiologist didint specify if simple cyst or concerning . US earlier this year reported bilateral renal cyst 3.4 cm anechoic exophytic cyst in the lower pole of Rt Kidney . CT in 2018 reported 2.7 cm cyst in Rt Kidney . No sure if radiologist have compared all the imaging HyperNatremia switch to IV hypotonic fluid Vomiting -feeling better w/ NGT Abnormal CT: multiple dilated and fluid distended proximal and mid SB loops with collapsed SB loops distally with a small knuckle of bowel abutting the anterior abdominal wall hernia, hypodense liver lesions, diffuse infiltration of the mesentery. Defer to primary/GI Pleural effusion - moderate right pleural effusion and small left pleural effusion with mild bibasilar lung atelectasis or infiltrates, and peritoneum Anemia- Hgb stable <10 Status loop ileostomy after low anterior resection Takedown of her protective loop ileostomy. She had a low anterior resection almost 2-3 years ago takedown Rheumatoid arthritis - she informed us in February by Dr Ulloa her PCP and switched to Methotrexate COMMENT/RELEVANT DATA Meds Current Medications Medications (Trade) Dose Ordered Sig/Ella Start Time Stop Time Status Last Admin Dose Admin Fentanyl Citrate (Fentanyl 2ml Vial) 50 mcg 1X ONCE 10/19/21 12:00 10/19/21 12:05 DC 10/19/21 13:03 50 MCG Info (CONTRAST GIVEN -- Rx MONITORING) 1 each PRN DAILY PRN 10/20/21 09:45 10/22/21 09:44 10/20/21 14:15 1 EACH Iohexol (Omnipaque 300 Mg/ml) 400 ml 1X ONCE 10/20/21 09:45 10/20/21 09:46 DC Morphine Sulfate (Morphine Sulfate) 2 mg 1X ONCE 10/21/21 08:45 10/21/21 08:46 DC Ondansetron HCl (Zofran) 4 mg PRN Q8HRS PRN 10/19/21 16:30 10/20/21 16:29 DC 10/19/21 22:52 4 MG Pantoprazole Sodium (PROTONIX VIAL for IV PUSH) 40 mg BIDAC 10/19/21 17:30 10/20/21 17:03 40 MG Pharmacy Consult (C.diff Med Screen By Rx) 1 each 1X ONCE 10/20/21 04:00 10/20/21 04:01 Cancel Piperacillin Sod/ Tazobactam Sod 2.25 gm/Sodium Chloride 50 ml @ 100 mls/hr 1X ONCE 10/19/21 13:15 10/19/21 13:44 DC 10/19/21 14:13 100 MLS/HR Sodium Chloride 1,000 ml @ 75 mls/hr [id number] 10/20/21 08:45 10/20/21 08:52 75 MLS/HR Lab Laboratory Tests Test 10/21/21 03:00 10/21/21 06:10 White Blood Count 8.4 x10^3/uL (4.0-11.0) Red Blood Count 3.05 x10^6/uL (3.50-5.40) Hemoglobin 9.6 g/dL (12.0-15.5) Hematocrit 29.6 % (36.0-47.0) Mean Corpuscular Volume 97 fL (79-100) Mean Corpuscular Hemoglobin 31 pg (25-35) Mean Corpuscular Hemoglobin Concent 32 g/dL (31-37) Red Cell Distribution Width 15.4 % (11.5-14.5) Platelet Count 594 x10^3/uL (140-400) Sodium Level 150 mmol/L (136-145) Potassium Level 4.0 mmol/L (3.5-5.1) Chloride Level 109 mmol/L (98-107) Carbon Dioxide Level 26 mmol/L (21-32) Anion Gap 15 (6-14) Blood Urea Nitrogen 48 mg/dL (7-20) Creatinine 1.8 mg/dL (0.6-1.0) Estimated GFR (Cockcroft-Gault) 26.9 Glucose Level 102 mg/dL (70-99) Calcium Level 8.4 mg/dL (8.5-10.1) Urine Collection Type U cath Urine Color Yellow Urine Clarity Clear Urine pH 5.5 (<5.0-8.0) Urine Specific [place] 1.015 (1.000-1.030) Urine Protein 30 mg/dL (NEG-TRACE) Urine Glucose (UA) Negative mg/dL (NEG) Urine Ketones (Stick) 40 mg/dL (NEG) Urine Blood Trace (NEG) Urine Nitrite Negative (NEG) Urine Bilirubin Moderate (NEG) Urine Urobilinogen Dipstick 0.2 mg/dL (0.2 mg/dL) Urine Leukocyte Esterase Negative (NEG) Urine RBC Occ /HPF (0-2) Urine WBC Rare /HPF (0-4) Urine Squamous Epithelial Cells Occ /LPF Urine Bacteria Few /HPF (0-FEW) Results All relevant outside records, renal labs, imaging studies, telemetry/EKG's were reviewed. Justicifation of Admission Dx: Justifications for Admission: Justification of Admission Dx: Yes NARCISO VALDOVINOS MD Oct 21, 2021 10:44
--- NOTE | 2021-10-21 11:00 | NUR ---
Allergies and reactions : adhesive BUN 48 Cr 1.8 Platelets 594 Blood culture done 10/19/21 blood culture results no growth as of 10/21/21 Order Verified y Consent signed y Previous PICC placement y Past Medical/Surgical history and current diagnosis reviewed Y Patient Medical /Surgical History Related to PICC line placement History of acute/chronic renal failure Past central line or venous access device placement Renal consult Special considerations for PICC line placement None PICC placement indication Multiple/ Frequent blood draws, Poor peripheral intravenous access Alicia SCHNEIDER name of PICC Nurse Addendum: 10/21/21 at 1107 by SRAVANTHI BUSH RN Amended: Links added.
[2021-10-21 11:03] VITALS: BP 148/67
--- NOTE | 2021-10-21 11:04 | NUR ---
Procedure: Following complete explanation of the midline procedure including the indications, risks, and potential complications, informed consent was obtained. The possibility for infection was discussed along with signs, symptoms, and prevention. All the questions were answered. Written and verbal patient education was provided. Hand hygiene performed. Standardized central line checklist was utilized. The patient was placed in the supine position, the arm was prepped with chlorhexidine and patient draped with maximum sterile barrier. 2 mL 1% lidocaine was infiltrated into the skin to provide local anesthesia. A thorough assessment of RIGHT upper extremity completed. Using real-time ultrasound guidance and standardized micro puncture set, the BASILLIC vein was punctured and a peel away sheath was placed using the modified Seldinger technique. A tip location device was used to ensure adequate catheter placement. The catheter was secured using a securement device and an antimicrobial patch was applied directly on the insertion site followed by a transparent dressing. All ports withdraw blood and flush without resistance. Patient tolerated the procedure without apparent complication(s). SINGLE Lumen MIDLINE placement successful and uncomplicated. Tip located in axillary region. Complications: [None] Addendum: 10/21/21 at 1107 by SRAVANTHI BUSH RN Amended: Links added.
[2021-10-21] MEDS: IV 1/2 NORMAL SALINE 1,000 ML IV SCH (11:07)
[2021-10-21] MEDS: PANTOPRAZOLE IV PUSH 40 MG VIAL. IVP SCH ×2 (11:08→17:50)
--- NOTE | 2021-10-21 12:13 | NUR ---
SS following up with discharge planning. SS reviewed pt chart and discussed with pt RN. Pt is currently on room air. GI, Nephrology, and Surgery following. Dr. Cevallos consulted. Pt had small bowel series on 10/20/2021. NPO. NG in place. Midline in place. Poor surgical candidate. Pt is skilled rehabilitation resident from [facility], ; fax [phone]. Not medically ready for PT/OT at this time. SS will continue to follow for discharge planning.
--- NOTE | 2021-10-21 12:52 | RAD ---
EXAM: Small bowel follow-through exam. HISTORY: Small bowel obstruction. TECHNIQUE: Serial overhead images of the abdomen were obtained following the administration of water- soluble contrast through an indwelling nasogastric tube. COMPARISON: CT obtained 10/19/2021 and abdominal series radiograph stated 10/20/2021. FINDINGS: The initial image demonstrates a nasogastric tube within the proximal stomach and the side- port at the gastric esophageal junction. There is significant reflux of contrast into a patulous esop hagus on the initial image. There is gastric distention. There are distended contrast-filled loops of proximal small bowel on the initial images. The subsequent images demonstrate delayed contrast opaci fication of distended loops of small bowel throughout the abdomen. There is relative transition to de compressed small bowel loops within the right lower quadrant. The small bowel transit time is delayed greater than 5 hours. IMPRESSION: 1. Distended stomach and extensive gastrointestinal reflux. There is a nasogastric tube with the side -port in the gastric esophageal junction. Tube advancement is recommended. 2. Distended loops of small bowel throughout the abdomen, with relative transition point to decompres sed small bowel within the right lower quadrant. The imaging appearance favors persistent small bowel obstruction. No convincing mucosal lesion is seen. However, the exam is limited due to dilute contra st within distended loops of bowel on delayed images. Electronically signed by: Connie Melendez MD (10/21/2021 12:50 PM) [id number]
--- NOTE | 2021-10-21 12:55 | PDOC2 ---
CONSULT Date of Consult Date of Consult DATE: 10/21/21 TIME: 12:48 Reason for Consult Reason for Consult: Small bowel obstruction and liver lesions Referring Physician Referring Physician: Dr. Howe Identification/Chief Complaint Chief Complaint Abdominal pain Source Source: Chart review, Patient History of Present Illness Reason for Visit: Vjii is an 81-year-old female with history of diverticulitis status post partial colectomy who has been admitted to [facility] for further evaluation of abdominal pain. Alexa reports intermittent abdominal pain with cramping for the past 6 weeks. She presented to the hospital for further evaluation due to worsening of these symptoms. In the emergency room, she received further evaluation with a CT of the abdomen and pelvis. This showed multiple dilated and fluid distended small bowel loops in the abdomen in the proximal and midportion with collapsed small bowel loops distally with a small knuckle of bowel abutting the anterior abdominal wall hernia being the likely site of obstruction . Differential includes adhesion or incarcerated hernia. In addition, hypodense lesions identified in the liver with the largest measuring 2.8 cm and the left lobe of the liver probably metastasis. CT also showed moderate LAD pleural effusion and small left pleural effusion. Diffuse infiltration of the mesentery and peritoneum suspected for peritoneal carcinomatosis was noted. Renal cyst was noted. She has been seen by GI and by Dr. De Los Santos. Per Dr. De Los Santos obstruction is likely secondary to peritoneal carcinomatosis and she is felt to be a poor candidate for surgical intervention. The patient is aware of the results of her CT findings. She is interested in receiving a diagnosis. Past Medical History Cardiovascular: HTN, Hyperlipidemia, Valve insufficiency, Other Pulmonary: No pertinent hx GI: Diverticulosis, GERD Heme/Onc: No pertinent hx Hepatobiliary: No pertinent hx Psych: Anxiety Musculoskeletal: low back pain, Osteoarthritis Rheumatologic: No pertinent hx Infectious disease: No pertinent hx Renal/: Chronic renal insuff Endocrine: Osteopenia Past Surgical History Past Surgical History: Appendectomy, Hysterectomy, Colon Resection, Other Family History Family History: No Significant, Other Social History Quit ALCOHOL: rare Drugs: None Lives: with Family Current Problem List Problem List Problems Medical Problems: (1) Acute on chronic renal insufficiency Status: Acute (2) Ascites Status: Acute (3) Chronic diarrhea Status: Acute (4) Chronic vomiting Status: Acute (5) Partial small bowel obstruction Status: Acute Current Medications Current Medications Current Medications Sodium Chloride 1,000 ml @ 1,000 mls/hr 1X ONCE IV Last administered on 10/19/21at 12:48; Start 10/19/21 at 12:00; Stop 10/19/21 at 12:59; Status DC Ondansetron HCl (Zofran) 4 mg 1X ONCE IVP Last administered on 10/19/21at 13:03; Start 10/19/21 at 12:00; Stop 10/19/21 at 12:05; Status DC Fentanyl Citrate (Fentanyl 2ml Vial) 50 mcg 1X ONCE IVP Last administered on 10/19/21at 13:03; Start 10/19/21 at 12:00; Stop 10/19/21 at 12:05; Status DC Piperacillin Sod/ Tazobactam Sod 2.25 gm/Sodium Chloride 50 ml @ 100 mls/hr 1X ONCE IV Last administered on 10/19/21at 14:13; Start 10/19/21 at 13:15; Stop 10/19/21 at 13:44; Status DC Ondansetron HCl (Zofran) 4 mg PRN Q8HRS PRN IVP NAUSEA/VOMITING Last administered on 10/19/21at 22:52; Start 10/19/21 at 16:30; Stop 10/20/21 at 16:29; Status DC Morphine Sulfate (Morphine Sulfate) 2 mg PRN Q2HR PRN IVP PAIN Last administered on 10/20/21at 03:48; Start 10/19/21 at 16:30; Stop 10/20/21 at 16:29; Status DC Pantoprazole Sodium (PROTONIX VIAL for IV PUSH) 40 mg BIDAC IVP Last administered on 10/21/21at 11:08; Start 10/19/21 at 17:30 Pharmacy Consult (C.diff Med Screen By Rx) 1 each 1X ONCE MC ; Start 10/20/21 at 04:00; Stop 10/20/21 at 04:01; Status Cancel Sodium Chloride 1,000 ml @ 75 mls/hr [id number] IV Last administered on 10/20/21at 08:52; Start 10/20/21 at 08:45; Stop 10/21/21 at 10:58; Status DC Iohexol (Omnipaque 300 Mg/ml) 400 ml 1X ONCE IJ ; Start 10/20/21 at 09:45; Stop 10/20/21 at 09:46; Status DC Info (CONTRAST GIVEN -- Rx MONITORING) 1 each PRN DAILY PRN MC SEE COMMENTS Last administered on 10/20/21at 14:15; Start 10/20/21 at 09:45; Stop 10/22/21 at 09:44 Morphine Sulfate (Morphine Sulfate) 2 mg 1X ONCE IM ; Start 10/21/21 at 08:45; Stop 10/21/21 at 08:46; Status DC Sodium Chloride 1,000 ml @ 75 mls/hr [id number] IV Last administered on 10/21/21at 11:07; Start 10/21/21 at 12:00 Active Scripts Active Ondansetron Odt (Ondansetron) 4 Mg Tab.rapdis 1 Tab PO PRN Q6-8HRS Dicyclomine Hcl 10 Mg Capsule 10 Mg PO PRN QID PRN Reported Stool Softener (Docusate Sodium) 50 Mg Capsule 1 Cap PO DAILY PRN 30 Days Tylenol (Acetaminophen) 325 Mg Tablet 1-2 Tab PO HS Perphen-Amitrip 2 Mg-10 Mg Tab (Perphenazine/Amitriptyline Hcl) 1 Each Tablet 1 Tab PO QHS Methotrexate (Methotrexate Sodium) 2.5 Mg Tablet 10 Tab PO TUESDAY Folic Acid 0.8 Mg Capsule 1 Cap PO DAILY 30 Days Vitamin D3 (Vitamin D) 25 Mcg Tablet 25 Mcg PO DAILY 1,000 UNITS = 25 MCG Amlodipine Besylate 2.5 Mg Tablet 2.5 Mg PO DAILY Vit C-Quyen Hips 500 mg Chew Tb (Ascorbic Acid/Ascorbate Sodium) 500 Mg Tab.chew 500 Mg PO DAILY Probiotic Acidophilus (Lactobacillus Acidophilus) 1 Each Tablet 1 Each PO DAILY Metoprolol Tartrate 50 Mg Tablet 50 Mg PO BID Omeprazole 20 Mg Tablet.dr 20 Mg PO DAILY Multivitamins (Multivitamin) 1 Each Tablet 1 Tab PO DAILY Allergies Allergies: Coded Allergies: adhesive (Verified Allergy, Intermediate, Rash, 10/19/21) ROS Review of System Negative unless stated otherwise in HPI Physical Exam General: Alert, Oriented X3 HEENT: Atraumatic Lungs: Clear to auscultation Heart: Regular rate, Normal S1, Normal S2 Abdomen: Other (Midline incision noted. Distended abdomen. Decreased bowel sounds) Extremities: No clubbing MUSCULOSKELETAL: No swelling Vitals VITALS Vital Signs Date Time Temp Pulse Resp B/P (MAP) Pulse Ox O2 Delivery O2 Flow Rate FiO2 10/21/21 11:03 97.8 118 18 148/67 (94) 98 Room Air 97.8 Labs Labs Laboratory Tests Test 10/20/21 07:15 10/21/21 03:00 10/21/21 06:10 White Blood Count 12.3 x10^3/uL (4.0-11.0) 8.4 x10^3/uL (4.0-11.0) Red Blood Count 2.97 x10^6/uL (3.50-5.40) 3.05 x10^6/uL (3.50-5.40) Hemoglobin 9.2 g/dL (12.0-15.5) 9.6 g/dL (12.0-15.5) Hematocrit 28.5 % (36.0-47.0) 29.6 % (36.0-47.0) Mean Corpuscular Volume 96 fL (79-100) 97 fL (79-100) Mean Corpuscular Hemoglobin 31 pg (25-35) 31 pg (25-35) Mean Corpuscular Hemoglobin Concent 32 g/dL (31-37) 32 g/dL (31-37) Red Cell Distribution Width 15.4 % (11.5-14.5) 15.4 % (11.5-14.5) Platelet Count 569 x10^3/uL (140-400) 594 x10^3/uL (140-400) Neutrophils (%) (Auto) 78 % (31-73) Lymphocytes (%) (Auto) 14 % (24-48) Monocytes (%) (Auto) 9 % (0-9) Eosinophils (%) (Auto) 0 % (0-3) Basophils (%) (Auto) 0 % (0-3) Neutrophils # (Auto) 9.6 x10^3/uL (1.8-7.7) Lymphocytes # (Auto) 1.7 x10^3/uL (1.0-4.8) Monocytes # (Auto) 1.0 x10^3/uL (0.0-1.1) Eosinophils # (Auto) 0.0 x10^3/uL (0.0-0.7) Basophils # (Auto) 0.0 x10^3/uL (0.0-0.2) Sodium Level 147 mmol/L (136-145) 150 mmol/L (136-145) Potassium Level 3.9 mmol/L (3.5-5.1) 4.0 mmol/L (3.5-5.1) Chloride Level 107 mmol/L (98-107) 109 mmol/L (98-107) Carbon Dioxide Level 27 mmol/L (21-32) 26 mmol/L (21-32) Anion Gap 13 (6-14) 15 (6-14) Blood Urea Nitrogen 57 mg/dL (7-20) 48 mg/dL (7-20) Creatinine 2.1 mg/dL (0.6-1.0) 1.8 mg/dL (0.6-1.0) Estimated GFR (Cockcroft-Gault) 22.5 26.9 Glucose Level 113 mg/dL (70-99) 102 mg/dL (70-99) Calcium Level 8.2 mg/dL (8.5-10.1) 8.4 mg/dL (8.5-10.1) CA 125 Antigen 582.0 U/mL (0.0-38.1) Urine Collection Type U cath Urine Color Yellow Urine Clarity Clear Urine pH 5.5 (<5.0-8.0) Urine Specific [place] 1.015 (1.000-1.030) Urine Protein 30 mg/dL (NEG-TRACE) Urine Glucose (UA) Negative mg/dL (NEG) Urine Ketones (Stick) 40 mg/dL (NEG) Urine Blood Trace (NEG) Urine Nitrite Negative (NEG) Urine Bilirubin Moderate (NEG) Urine Urobilinogen Dipstick 0.2 mg/dL (0.2 mg/dL) Urine Leukocyte Esterase Negative (NEG) Urine RBC Occ /HPF (0-2) Urine WBC Rare /HPF (0-4) Urine Squamous Epithelial Cells Occ /LPF Urine Bacteria Few /HPF (0-FEW) Laboratory Tests Test 10/21/21 03:00 10/21/21 06:10 White Blood Count 8.4 x10^3/uL (4.0-11.0) Red Blood Count 3.05 x10^6/uL (3.50-5.40) Hemoglobin 9.6 g/dL (12.0-15.5) Hematocrit 29.6 % (36.0-47.0) Mean Corpuscular Volume 97 fL (79-100) Mean Corpuscular Hemoglobin 31 pg (25-35) Mean Corpuscular Hemoglobin Concent 32 g/dL (31-37) Red Cell Distribution Width 15.4 % (11.5-14.5) Platelet Count 594 x10^3/uL (140-400) Sodium Level 150 mmol/L (136-145) Potassium Level 4.0 mmol/L (3.5-5.1) Chloride Level 109 mmol/L (98-107) Carbon Dioxide Level 26 mmol/L (21-32) Anion Gap 15 (6-14) Blood Urea Nitrogen 48 mg/dL (7-20) Creatinine 1.8 mg/dL (0.6-1.0) Estimated GFR (Cockcroft-Gault) 26.9 Glucose Level 102 mg/dL (70-99) Calcium Level 8.4 mg/dL (8.5-10.1) Urine Collection Type U cath Urine Color Yellow Urine Clarity Clear Urine pH 5.5 (<5.0-8.0) Urine Specific [place] 1.015 (1.000-1.030) Urine Protein 30 mg/dL (NEG-TRACE) Urine Glucose (UA) Negative mg/dL (NEG) Urine Ketones (Stick) 40 mg/dL (NEG) Urine Blood Trace (NEG) Urine Nitrite Negative (NEG) Urine Bilirubin Moderate (NEG) Urine Urobilinogen Dipstick 0.2 mg/dL (0.2 mg/dL) Urine Leukocyte Esterase Negative (NEG) Urine RBC Occ /HPF (0-2) Urine WBC Rare /HPF (0-4) Urine Squamous Epithelial Cells Occ /LPF Urine Bacteria Few /HPF (0-FEW) Assessment/Plan Assessment/Plan Assessment: Small bowel obstruction Peritoneal carcinomatosis Liver metastasis Elevated CA-125 Normocytic anemia Thrombocytosis, likely reactive YA Recommendations: -We discussed the results of CT findings. I stated the concern for metastatic cancer with the patient. We discussed the role of biopsy and confirming diagnosis and identifying site of origin -We discussed the management of advanced cancers with peritoneal carcinomatosis and liver metastases. I reviewed with her that the role of treatment in this setting is palliation and prolonging life. We discussed that her current fun ctional status and complication with small bowel obstruction with place her at prohibitive risk for chemotherapy related toxicity. -She is interested in obtaining a biopsy for diagnosis before discussing goals of care and this is a very reasonable approach. Recommend CT-guided biopsy of liver metastasis -Continue management of small bowel obstruction per surgery service -Management of YA per primary service -Encourage discussion for changing status to DNR Griffin Joy MD Medical Oncology/Hematology Ph: [phone] IMELDA JOY MD Oct 21, 2021 12:55
--- NOTE | 2021-10-21 13:49 | PDOC2 ---
CONSULT Date of Consult Date of Consult DATE: 10/21/21 TIME: 13:48 Reason for Consult Reason for Consult: SBO with peritoneal seeding and elevated CA 125 History of Present Illness Reason for Visit: 81y who presented to the ER on 10/19/21 with N/V/D. The pt was dxed with a SBO. The CT in the ER revealed the followin. Multiple dilated and fluid distended small bowel loops identified in the abdomen in the proximal and midportion with collapsed small bowel loops distally with a small knuckle of bowel abutting the anterior abdominal wall hernia on series 5 image 37 likely site of obstruction . Differential includes adhesion or incarcerated hernia . 2. Hypodense lesions identified in the liver with the largest measuring 2.8 cm and the left lobe of the liver probably metastasis. Recommend MRI for further evaluation. 3. Moderate right pleural effusion and small left pleural effusion with mild bibasilar lung atelectasis or infiltrates. 4. Diffuse infiltration of the mesentery and peritoneum suspicious for perito harsha metastasis. 5. Cystic structure identified in the right kidney measuring 3.2 cm likely cyst or cystic lesion. Over the course of her w/u tumor markers were obtained. A CA 125 returned elevated. The pt underwent an Exlap for pelvic colon abscess 08/26/17. The pt does not recall if her ovaries were removed during the surgery. She underwent the surgery at [place] where the procedure performed was 1. Exploratory Lap Abscess removal, 2. DERIC & BSO, and 3. Colostomy. She was noted to have multiple adhesions. The pathology from the procedure returned as follow: A. Uterus, right tube and ovary: - Ovary, fallopian tube, and fibrous soft tissue with acute and chronic inflammation, fibrosis, abscess formation, necrosis, calcification, and foreign body giant cell reaction. - Reactive lymph nodes present. - Negative for malignancy. - See comment. B. Rectal sigmoid: - Colon with diverticulosis, fibrosis, mixed inflammation, and fat necrosis. - Extensive serosal adhesions are present. - Reactive lymph nodes present. - Negative for malignancy. C. Left tube and ovary: - Ovary and fallopian tube with adjacent fibrosis, abscess formation, foreign body giant cell reaction, and calcification. - Paratubal cyst. - Reactive lymph nodes present. - Negative for malignancy. D. Appendix: - Benign appendix with serosal adhesions. COMMENT: Part A Uterus, right tube and ovary: Definitive myometrium and uterus are not identified, however, these may be represented by the inflamed and fibrotic tissue present throughout this specimen. The pt returned in November (11/30/21) with a later with a perforated bowel. She underwent 1. Rigid proctoscopy, 2. Takedown colostomy with low anterior anastomosis, 3. Loop ileostomy, and 4. DERIC. I cannot find any pathology from this surgery. PMH: HTN, Hyperlipidemia, Valve insufficiency, Diverticulosis, GERD, Anxiety, Osteoarthritis, Chronic renal insuff PSH: 1. Exploratory Lap with Abscess removal, DERIC/BSO and colon resection with colostomy, 2. Rigid proctoscopy, takedown colostomy with low anterior anastomosis, loop ileostomy, and DERIC. 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 Menarche 11yo / Monthly and heavy / Menopause 48yo SH: no tob, no EtOH FH: CA, stroke, NE Past Medical History Cardiovascular: HTN, Hyperlipidemia, Valve insufficiency, Other Pulmonary: No pertinent hx GI: Diverticulosis, GERD Heme/Onc: No pertinent hx Hepatobiliary: No pertinent hx Psych: Anxiety Musculoskeletal: low back pain, Osteoarthritis Rheumatologic: No pertinent hx Infectious disease: No pertinent hx Renal/: Chronic renal insuff Endocrine: Osteopenia Past Surgical History Past Surgical History: Appendectomy, Hysterectomy, Colon Resection, Other Family History Family History: No Significant, Other Social History Quit ALCOHOL: rare Drugs: None Lives: with Family Current Problem List Problem List Problems Medical Problems: (1) Acute on chronic renal insufficiency Status: Acute (2) Ascites Status: Acute (3) Chronic diarrhea Status: Acute (4) Chronic vomiting Status: Acute (5) Partial small bowel obstruction Status: Acute Current Medications Current Medications Current Medications Sodium Chloride 1,000 ml @ 1,000 mls/hr 1X ONCE IV Last administered on 10/19/21at 12:48; Start 10/19/21 at 12:00; Stop 10/19/21 at 12:59; Status DC Ondansetron HCl (Zofran) 4 mg 1X ONCE IVP Last administered on 10/19/21at 13:03; Start 10/19/21 at 12:00; Stop 10/19/21 at 12:05; Status DC Fentanyl Citrate (Fentanyl 2ml Vial) 50 mcg 1X ONCE IVP Last administered on 10/19/21at 13:03; Start 10/19/21 at 12:00; Stop 10/19/21 at 12:05; Status DC Piperacillin Sod/ Tazobactam Sod 2.25 gm/Sodium Chloride 50 ml @ 100 mls/hr 1X ONCE IV Last administered on 10/19/21at 14:13; Start 10/19/21 at 13:15; Stop 10/19/21 at 13:44; Status DC Ondansetron HCl (Zofran) 4 mg PRN Q8HRS PRN IVP NAUSEA/VOMITING Last administered on 10/19/21at 22:52; Start 10/19/21 at 16:30; Stop 10/20/21 at 16:29; Status DC Morphine Sulfate (Morphine Sulfate) 2 mg PRN Q2HR PRN IVP PAIN Last administered on 10/20/21at 03:48; Start 10/19/21 at 16:30; Stop 10/20/21 at 16:29; Status DC Pantoprazole Sodium (PROTONIX VIAL for IV PUSH) 40 mg BIDAC IVP Last administered on 10/21/21at 11:08; Start 10/19/21 at 17:30 Pharmacy Consult (C.diff Med Screen By Rx) 1 each 1X ONCE MC ; Start 10/20/21 at 04:00; Stop 10/20/21 at 04:01; Status Cancel Sodium Chloride 1,000 ml @ 75 mls/hr [id number] IV Last administered on 10/20/21at 08:52; Start 10/20/21 at 08:45; Stop 10/21/21 at 10:58; Status DC Iohexol (Omnipaque 300 Mg/ml) 400 ml 1X ONCE IJ ; Start 10/20/21 at 09:45; Stop 10/20/21 at 09:46; Status DC Info (CONTRAST GIVEN -- Rx MONITORING) 1 each PRN DAILY PRN MC SEE COMMENTS Last administered on 10/20/21at 14:15; Start 10/20/21 at 09:45; Stop 10/22/21 at 09:44 Morphine Sulfate (Morphine Sulfate) 2 mg 1X ONCE IM ; Start 10/21/21 at 08:45; Stop 10/21/21 at 08:46; Status DC Sodium Chloride 1,000 ml @ 75 mls/hr [id number] IV Last administered on 10/21/21at 11:07; Start 10/21/21 at 12:00 Active Scripts Active Ondansetron Odt (Ondansetron) 4 Mg Tab.rapdis 1 Tab PO PRN Q6-8HRS Dicyclomine Hcl 10 Mg Capsule 10 Mg PO PRN QID PRN Reported Stool Softener (Docusate Sodium) 50 Mg Capsule 1 Cap PO DAILY PRN 30 Days Tylenol (Acetaminophen) 325 Mg Tablet 1-2 Tab PO HS Perphen-Amitrip 2 Mg-10 Mg Tab (Perphenazine/Amitriptyline Hcl) 1 Each Tablet 1 Tab PO QHS Methotrexate (Methotrexate Sodium) 2.5 Mg Tablet 10 Tab PO TUESDAY Folic Acid 0.8 Mg Capsule 1 Cap PO DAILY 30 Days Vitamin D3 (Vitamin D) 25 Mcg Tablet 25 Mcg PO DAILY 1,000 UNITS = 25 MCG Amlodipine Besylate 2.5 Mg Tablet 2.5 Mg PO DAILY Vit C-Quyen Hips 500 mg Chew Tb (Ascorbic Acid/Ascorbate Sodium) 500 Mg Tab.chew 500 Mg PO DAILY Probiotic Acidophilus (Lactobacillus Acidophilus) 1 Each Tablet 1 Each PO DAILY Metoprolol Tartrate 50 Mg Tablet 50 Mg PO BID Omeprazole 20 Mg Tablet.dr 20 Mg PO DAILY Multivitamins (Multivitamin) 1 Each Tablet 1 Tab PO DAILY Allergies Allergies: Coded Allergies: adhesive (Verified Allergy, Intermediate, Rash, 10/19/21) Physical Exam General: Alert, Oriented X3, Cooperative, No acute distress HEENT: PERRLA, Mucous membr. moist/pink Lungs: Clear to auscultation, Normal air movement Heart: Regular rate, Normal S1, Normal S2, No murmurs Extremities: No clubbing, No cyanosis, No edema, Normal pulses, No tenderness/swelling Skin: No rashes, No breakdown Neuro: Normal gait, Normal speech, Normal tone, Sensation intact, Reflexes 2+ Psych/Mental Status: Mental status NL, Mood NL Vitals VITALS Vital Signs Date Time Temp Pulse Resp B/P (MAP) Pulse Ox O2 Delivery O2 Flow Rate FiO2 10/21/21 11:03 97.8 118 18 148/67 (94) 98 Room Air 97.8 Labs Labs Laboratory Tests Test 10/20/21 07:15 10/21/21 03:00 10/21/21 06:10 White Blood Count 12.3 x10^3/uL (4.0-11.0) 8.4 x10^3/uL (4.0-11.0) Red Blood Count 2.97 x10^6/uL (3.50-5.40) 3.05 x10^6/uL (3.50-5.40) Hemoglobin 9.2 g/dL (12.0-15.5) 9.6 g/dL (12.0-15.5) Hematocrit 28.5 % (36.0-47.0) 29.6 % (36.0-47.0) Mean Corpuscular Volume 96 fL (79-100) 97 fL (79-100) Mean Corpuscular Hemoglobin 31 pg (25-35) 31 pg (25-35) Mean Corpuscular Hemoglobin Concent 32 g/dL (31-37) 32 g/dL (31-37) Red Cell Distribution Width 15.4 % (11.5-14.5) 15.4 % (11.5-14.5) Platelet Count 569 x10^3/uL (140-400) 594 x10^3/uL (140-400) Neutrophils (%) (Auto) 78 % (31-73) Lymphocytes (%) (Auto) 14 % (24-48) Monocytes (%) (Auto) 9 % (0-9) Eosinophils (%) (Auto) 0 % (0-3) Basophils (%) (Auto) 0 % (0-3) Neutrophils # (Auto) 9.6 x10^3/uL (1.8-7.7) Lymphocytes # (Auto) 1.7 x10^3/uL (1.0-4.8) Monocytes # (Auto) 1.0 x10^3/uL (0.0-1.1) Eosinophils # (Auto) 0.0 x10^3/uL (0.0-0.7) Basophils # (Auto) 0.0 x10^3/uL (0.0-0.2) Sodium Level 147 mmol/L (136-145) 150 mmol/L (136-145) Potassium Level 3.9 mmol/L (3.5-5.1) 4.0 mmol/L (3.5-5.1) Chloride Level 107 mmol/L (98-107) 109 mmol/L (98-107) Carbon Dioxide Level 27 mmol/L (21-32) 26 mmol/L (21-32) Anion Gap 13 (6-14) 15 (6-14) Blood Urea Nitrogen 57 mg/dL (7-20) 48 mg/dL (7-20) Creatinine 2.1 mg/dL (0.6-1.0) 1.8 mg/dL (0.6-1.0) Estimated GFR (Cockcroft-Gault) 22.5 26.9 Glucose Level 113 mg/dL (70-99) 102 mg/dL (70-99) Calcium Level 8.2 mg/dL (8.5-10.1) 8.4 mg/dL (8.5-10.1) CA 125 Antigen 582.0 U/mL (0.0-38.1) Urine Collection Type U cath Urine Color Yellow Urine Clarity Clear Urine pH 5.5 (<5.0-8.0) Urine Specific [place] 1.015 (1.000-1.030) Urine Protein 30 mg/dL (NEG-TRACE) Urine Glucose (UA) Negative mg/dL (NEG) Urine Ketones (Stick) 40 mg/dL (NEG) Urine Blood Trace (NEG) Urine Nitrite Negative (NEG) Urine Bilirubin Moderate (NEG) Urine Urobilinogen Dipstick 0.2 mg/dL (0.2 mg/dL) Urine Leukocyte Esterase Negative (NEG) Urine RBC Occ /HPF (0-2) Urine WBC Rare /HPF (0-4) Urine Squamous Epithelial Cells Occ /LPF Urine Bacteria Few /HPF (0-FEW) Laboratory Tests Test 10/21/21 03:00 10/21/21 06:10 White Blood Count 8.4 x10^3/uL (4.0-11.0) Red Blood Count 3.05 x10^6/uL (3.50-5.40) Hemoglobin 9.6 g/dL (12.0-15.5) Hematocrit 29.6 % (36.0-47.0) Mean Corpuscular Volume 97 fL (79-100) Mean Corpuscular Hemoglobin 31 pg (25-35) Mean Corpuscular Hemoglobin Concent 32 g/dL (31-37) Red Cell Distribution Width 15.4 % (11.5-14.5) Platelet Count 594 x10^3/uL (140-400) Sodium Level 150 mmol/L (136-145) Potassium Level 4.0 mmol/L (3.5-5.1) Chloride Level 109 mmol/L (98-107) Carbon Dioxide Level 26 mmol/L (21-32) Anion Gap 15 (6-14) Blood Urea Nitrogen 48 mg/dL (7-20) Creatinine 1.8 mg/dL (0.6-1.0) Estimated GFR (Cockcroft-Gault) 26.9 Glucose Level 102 mg/dL (70-99) Calcium Level 8.4 mg/dL (8.5-10.1) Urine Collection Type U cath Urine Color Yellow Urine Clarity Clear Urine pH 5.5 (<5.0-8.0) Urine Specific [place] 1.015 (1.000-1.030) Urine Protein 30 mg/dL (NEG-TRACE) Urine Glucose (UA) Negative mg/dL (NEG) Urine Ketones (Stick) 40 mg/dL (NEG) Urine Blood Trace (NEG) Urine Nitrite Negative (NEG) Urine Bilirubin Moderate (NEG) Urine Urobilinogen Dipstick 0.2 mg/dL (0.2 mg/dL) Urine Leukocyte Esterase Negative (NEG) Urine RBC Occ /HPF (0-2) Urine WBC Rare /HPF (0-4) Urine Squamous Epithelial Cells Occ /LPF Urine Bacteria Few /HPF (0-FEW) Assessment/Plan Assessment/Plan Assessment: 81y admitted with a SBO Recommendation: 1.) SBO thought to be secondary to peritoneal carcinomatosis. [place] to be a poor candidate for surgical intervention by Surgery team. 2.) Elevated CA 125 - an elevated CA 125 is also associated with many conditions other than epithelial ovarian cancer, including diverticulitis, renal insufficiency, etc. This likely the case with no pelvic mass found. Review of her previous ovarian pathology revealed benign tissue, but base on the inflammation and adhesions it is possible that the entire specimen was not obtained. The pathology from the 2nd case where the DERIC was completed is not available. 3.) Peritoneal carcinomatosis unclear what primary source is. Oncology has discussed bx with the pt 4.) H/o DERIC/BSO ovarian pathology was benign. Hysterectomy path not available 5.) Diverticulosis complicated by abscess, a couple of bowel resection, and perforations 6.) Menopause never ERT/HRT 7.) Liver metastasis 8.) Anemia 9.) YA 10.) Will cont to follow DEBI MCKEON MD Oct 21, 2021 13:49
--- NOTE | 2021-10-21 14:24 | RAD ---
EXAM: Chest CT without intravenous contrast. HISTORY: Cancer staging. Pleural effusion. TECHNIQUE: Computed tomographic images of the chest were obtained without contrast. Multiplanar refor matting was performed. *One or more of the following individualized dose reduction techniques were utilized for this examina tion: 1. Automated exposure control. 2. Adjustment of the mA and/or kV according to patient size. 3. Use of iterative reconstruction technique. COMPARISON: 10/19/2021. 12/28/2017 FINDINGS: There are moderate right and small to moderate left pleural effusions. There is partial isaias ateral lower lobe collapse. There is a spiculated nodular opacity containing calcification at the rig ht lung apex measuring 3.1 cm, likely due to pleural parenchymal scarring/plaque. There is less sever e scarring involving the contralateral lung apex. There is emphysema. There is a heterogeneous partially calcified right paratracheal mass along the posterior right thyroi d lobe measuring 3.1 cm. There is a small partially calcified nodule within the left thyroid lobe rigoberto suring 8 mm. There are nonspecific mediastinal and hilar lymph nodes. There is coronary artery calcif ication. There is a nasogastric tube within the stomach. There is slight asymmetric density within th e retroareolar aspect of the left breast. There are multiple hypodense lesions within the liver, the largest of which is seen within the left h epatic lobe measuring 3.0 cm. There is perihepatic and perisplenic ascites and stranding within the m esentery. The adrenal glands are unremarkable. The visualized portions of the pancreas are unremarkab le. There is degenerative change throughout the visualized spine. There is no convincing acute osseou s finding or suspicious osseous lesion. IMPRESSION: 1. Moderate right and small to moderate left pleural effusions with bilateral lower lobe partial ramiro apse. 2. 3.1 cm spiculated nodular opacity containing calcification of the right lung apex, likely due to a djacent pleural parenchymal scarring/plaque. There is less severe scarring involving the contralatera l lung apex. This is superimposed on emphysema. The slow interval change compared to the study perfor med 12/28/2017 favors benignity. 3. 3.1 cm mass along the posterior right thyroid lobe, similar compared to the prior exam performed . This can be better assessed with a thyroid sonogram. 4. Multiple hypodense lesions within the liver. This can be better assessed with a contrast-enhanced exam. 5. Perihepatic and perisplenic ascites and peritoneal stranding. This is better characterized on the abdomen and pelvis CT performed 2 days prior. Electronically signed by: Connie Melendez MD (10/21/2021 2:22 PM) [id number]
[2021-10-21 15:00] VITALS: BP 142/61
[2021-10-21 15:01] LABS: PROTHROMBIN TIME PATIENT 14.6 SEC (11.7-14.0)
[2021-10-21] MEDS ORDERED: DICYCLOMINE 20 MG/2 ML VIAL. IM PRN (19:45)
[2021-10-21 19:50] VITALS: BP 153/65
[2021-10-21] MEDS: METOPROLOL IV PUSH 5 MG/5 ML VIAL. IVP PRN (20:42)
[2021-10-21] MEDS: PROCHLORPERAZINE 10 MG/2 ML VIAL. IV PRN (20:54)
[2021-10-21] MEDS: MORPHINE SULFATE 2 MG/ML INJ. IVP PRN (20:54)
[2021-10-21 22:44] VITALS: BP 146/65
[2021-10-22] VITALS (11 sets, daily range): BP systolic 112–158; BP diastolic 50–78
--- NOTE | 2021-10-22 02:58 | NUR ---
C/o "abdominal pain", makes circular motion around belly, rates as an achy /. Morphine given IVP. Tachy 119. "Sometimes I can feel my heart beating in my chest". "I haven't had my regular medicine in a long time". Metropolol given IVP.
[2021-10-22 06:46] LABS: CALCIUM 8.2 mg/dL (8.5-10.1); CREATININE 1.5 mg/dL (0.6-1.0); GFR 33.2; POTASSIUM 3.8 mmol/L (3.5-5.1)
[2021-10-22] MEDS: PANTOPRAZOLE IV PUSH 40 MG VIAL. IVP SCH ×2 (08:28→17:00)
--- NOTE | 2021-10-22 08:53 | PDOC ---
SURGICAL PROGRESS NOTE DATE: 10/22/21 TIME: 08:51 Subjective Patient states she is not feeling very well today could not be more specific no nausea Vital Signs Vital Signs Date Time Temp Pulse Resp B/P (MAP) Pulse Ox O2 Delivery O2 Flow Rate FiO2 10/22/21 07:00 97.9 120 20 158/70 (99) 96 Room Air 97.9 I&O Intake and Output 10/22/21 07:00 Intake Total 1327 ml Output Total 2825 ml Balance -1498 ml Intake Oral 55 ml Blood Product IV Normal Saline Flush 1272 ml Output Urine Total 750 ml Gastric Drainage Total 2075 ml PATIENT HAS A CALL: No General: Alert, Oriented X3, Cooperative, mild distress Abdomen: Soft, No tenderness (Mildly tender diffusely no peritoneal sign), Other (NG tube intact with bilious output) Labs Laboratory Tests Test 10/21/21 03:00 10/21/21 06:10 10/21/21 14:37 10/22/21 06:20 White Blood Count 8.4 x10^3/uL (4.0-11.0) Red Blood Count 3.05 x10^6/uL (3.50-5.40) Hemoglobin 9.6 g/dL (12.0-15.5) Hematocrit 29.6 % (36.0-47.0) Mean Corpuscular Volume 97 fL (79-100) Mean Corpuscular Hemoglobin 31 pg (25-35) Mean Corpuscular Hemoglobin Concent 32 g/dL (31-37) Red Cell Distribution Width 15.4 % (11.5-14.5) Platelet Count 594 x10^3/uL (140-400) Sodium Level 150 mmol/L (136-145) 146 mmol/L (136-145) Potassium Level 4.0 mmol/L (3.5-5.1) 3.8 mmol/L (3.5-5.1) Chloride Level 109 mmol/L (98-107) 110 mmol/L (98-107) Carbon Dioxide Level 26 mmol/L (21-32) 27 mmol/L (21-32) Anion Gap 15 (6-14) 9 (6-14) Blood Urea Nitrogen 48 mg/dL (7-20) 36 mg/dL (7-20) Creatinine 1.8 mg/dL (0.6-1.0) 1.5 mg/dL (0.6-1.0) Estimated GFR (Cockcroft-Gault) 26.9 33.2 Glucose Level 102 mg/dL (70-99) 111 mg/dL (70-99) Calcium Level 8.4 mg/dL (8.5-10.1) 8.2 mg/dL (8.5-10.1) Urine Collection Type U cath Urine Color Yellow Urine Clarity Clear Urine pH 5.5 (<5.0-8.0) Urine Specific [place] 1.015 (1.000-1.030) Urine Protein 30 mg/dL (NEG-TRACE) Urine Glucose (UA) Negative mg/dL (NEG) Urine Ketones (Stick) 40 mg/dL (NEG) Urine Blood Trace (NEG) Urine Nitrite Negative (NEG) Urine Bilirubin Moderate (NEG) Urine Urobilinogen Dipstick 0.2 mg/dL (0.2 mg/dL) Urine Leukocyte Esterase Negative (NEG) Urine RBC Occ /HPF (0-2) Urine WBC Rare /HPF (0-4) Urine Squamous Epithelial Cells Occ /LPF Urine Bacteria Few /HPF (0-FEW) Prothrombin Time 14.6 SEC (11.7-14.0) Prothromb Time International Ratio 1.2 (0.8-1.1) Laboratory Tests Test 10/21/21 14:37 10/22/21 06:20 Prothrombin Time 14.6 SEC (11.7-14.0) Prothromb Time International Ratio 1.2 (0.8-1.1) Sodium Level 146 mmol/L (136-145) Potassium Level 3.8 mmol/L (3.5-5.1) Chloride Level 110 mmol/L (98-107) Carbon Dioxide Level 27 mmol/L (21-32) Anion Gap 9 (6-14) Blood Urea Nitrogen 36 mg/dL (7-20) Creatinine 1.5 mg/dL (0.6-1.0) Estimated GFR (Cockcroft-Gault) 33.2 Glucose Level 111 mg/dL (70-99) Calcium Level 8.2 mg/dL (8.5-10.1) Problem List Problems Medical Problems: (1) Acute on chronic renal insufficiency Status: Acute (2) Ascites Status: Acute (3) Chronic diarrhea Status: Acute (4) Chronic vomiting Status: Acute (5) Partial small bowel obstruction Status: Acute Assessment/Plan Likely metastatic disease to the liver and possible carcinomatosis causing bowel obstruction patient to get liver biopsy today for tissue diagnosis continue supportive care Justicifation of Admission Dx: Justifications for Admission: Justification of Admission Dx: Yes VIKKI BOOTH MD Oct 22, 2021 08:53
--- NOTE | 2021-10-22 09:10 | PDOC ---
[employer]RE[employer] PROGRESS NOTE Date of Service: DATE: 10/22/21 TIME: 09:09 Subjective: No interval changes. Discussed past pathology with pt. Objective: Vital Signs: Vital Signs Date Time Temp Pulse Resp B/P (MAP) Pulse Ox O2 Delivery O2 Flow Rate FiO2 10/21/21 07:00 97.9 120 18 148/63 (91) 96 Room Air 97.9 Vital Signs Date Time Temp Pulse Resp B/P (MAP) Pulse Ox O2 Delivery O2 Flow Rate FiO2 10/22/21 07:00 97.9 120 20 158/70 (99) 96 Room Air 97.9 Labs: Laboratory Tests Test 10/21/21 14:37 10/22/21 06:20 Prothrombin Time 14.6 SEC (11.7-14.0) H Prothrombin Time INR 1.2 (0.8-1.1) H Sodium Level 146 mmol/L (136-145) H Potassium Level 3.8 mmol/L (3.5-5.1) Chloride Level 110 mmol/L (98-107) H Carbon Dioxide Level 27 mmol/L (21-32) Anion Gap 9 (6-14) Blood Urea Nitrogen 36 mg/dL (7-20) H Creatinine 1.5 mg/dL (0.6-1.0) H Estimated GFR (Cockcroft-Gault) 33.2 Glucose Level 111 mg/dL (70-99) H Calcium Level 8.2 mg/dL (8.5-10.1) L Laboratory Tests 10/22/21 06:20 Laboratory Tests 10/22/21 06:20 Physical Exam: GENERAL: No apparent distress. Alert and oriented. HEENT: Head normocephalic, atraumatic. NECK: Supple LUNGS: Clear to auscultation. HEART: RRR, S1, S2 present, pulses intact ABDOMEN: Soft, positive bowel sounds. EXTREMITIES: No cyanosis or edema. NEUROLOGIC: Normal speech, normal tone PSYCHIATRIC: Normal affect, normal mood. SKIN: No ulceration. Assessment & Plan: A/P 81y admitted with a SBO 1.) SBO thought to be secondary to peritoneal carcinomatosis. 2.) Elevated CA 125 does not necessarily help delineate the primary cause of carcinomatosis. No pelvic mass found. Previous pathology revealed benign ovarian tissue 3.) Peritoneal carcinomatosis liver bx today 4.) H/o DERIC/BSO ovarian pathology was benign. Hysterectomy path not available 5.) Diverticulosis complicated by abscess, a couple of bowel resection, and perforations 6.) Menopause never ERT/HRT 7.) Liver metastasis 8.) Anemia 9.) YA 10.) Will cont to follow DEBI MCKEON MD Oct 22, 2021 09:10
--- NOTE | 2021-10-22 09:24 | PDOC ---
Date of Service: DATE: 10/22/21 TIME: 09:18 Subjective: Subjective: Abdominal discomfort, no flatus or stool. Talks about how her mom used to make leblanc soup that she really liked. Objective: Objective: D/w nurse - liver biopsy today, ~7500cc from NGT. Vital Signs: Vital Signs Date Time Temp Pulse Resp B/P (MAP) Pulse Ox O2 Delivery O2 Flow Rate FiO2 10/22/21 07:00 97.9 120 20 158/70 (99) 96 Room Air 97.9 Labs: Laboratory Tests Test 10/21/21 14:37 10/22/21 06:20 Prothrombin Time 14.6 SEC Prothromb Time International Ratio 1.2 Sodium Level 146 mmol/L Potassium Level 3.8 mmol/L Chloride Level 110 mmol/L Carbon Dioxide Level 27 mmol/L Anion Gap 9 Blood Urea Nitrogen 36 mg/dL Creatinine 1.5 mg/dL Estimated GFR (Cockcroft-Gault) 33.2 Glucose Level 111 mg/dL Calcium Level 8.2 mg/dL Imaging: Chest CT 10.21 IMPRESSION: 1. Moderate right and small to moderate left pleural effusions with bilateral lo wer lobe partial collapse. 2. 3.1 cm spiculated nodular opacity containing calcification of the right lung apex, likely due to adjacent pleural parenchymal scarring/plaque. There is less severe scarring involving the contralateral lung apex. This is superimposed on emphysema. The slow interval change compared to the study performed 12/28/2017 favors benignity. 3. 3.1 cm mass along the posterior right thyroid lobe, similar compared to the prior exam performed 12/28/2017. This can be better assessed with a thyroid sonogram. 4. Multiple hypodense lesions within the liver. This can be better assessed with a contrast-enhanced exam. 5. Perihepatic and perisplenic ascites and peritoneal stranding. This is better characterized on the abdomen and pelvis CT performed 2 days prior. SBS 10/20 IMPRESSION: 1. Distended stomach and extensive gastrointestinal reflux. There is a nasogastric tube with the side-port in the gastric esophageal junction. Tube advancement is recommended. 2. Distended loops of small bowel throughout the abdomen, with relative transition point to decompressed small bowel within the right lower quadrant. The imaging appearance favors persistent small bowel obstruction. No convincing mucosal lesion is seen. However, the exam is limited due to dilute contrast within distended loops of bowel on delayed images. PE: GEN: NAD LUNGS: diminished anteriorly - stable HEART: tachycardic ABD: quiet, uncomfortable, NG bilious NEURO/PSYCH: A & O 3 A/P: Concern for metastatic disease - elevated CA-125, CEA, and CA19-9 SBO - surgery following JESÚS/ACD Tachycardia -- Plans for liver biopsy. Justicifation of Admission Dx: Justifications for Admission: Justification of Admission Dx: Yes IRASEMA MCCARTY Oct 22, 2021 09:24
--- NOTE | 2021-10-22 09:42 | PDOC ---
DATE OF SERVICE DATE: 10/22/21 TIME: 09:27 SUBJECTIVE ROS No N/V. feeling better Scheduled for Liver Bx today OBJECTIVE Vital Signs Vital Signs Date Time Temp Pulse Resp B/P (MAP) Pulse Ox O2 Delivery O2 Flow Rate FiO2 10/22/21 07:00 97.9 120 20 158/70 (99) 96 Room Air 97.9 I & 0 Intake and Output 10/22/21 07:00 Intake Total 1327 ml Output Total 2825 ml Balance -1498 ml Intake Oral 55 ml Blood Product IV Normal Saline Flush 1272 ml Output Urine Total 750 ml Gastric Drainage Total 2075 ml PHYSICAL EXAM Physical Exam GEN: NAD HEEN: OM moist , NG tube in place NECK: Supple CVS: RRR RESP: CTA, No access Muscle use GI: BS + ve, Non Tender, NEURO- Grossly normal SKIN- No Rash Psych Cooperative [place] + 10/19/21; No CVA tenderness, No Suprapubic Tenderness, DIAGNOSIS/ASSESSMENT Assessment & Plan YA- Vasomotor 2/2 Dehydration- Diarrhea/Vomiting, Low BP POA , Non Oliguric; Creat improving . Supportive care, continue IVF , Avoid nephrotoxins , Void ing trial before dc CKD stage 3- Baseline Cr 1.4-1.6. Intermittent YA during Hospitalization at [facility] . Reviewed recent labs 09/22/21 from our office records Creat was 1.5 . She follows with us as OP . Last seen February 2021; missed fu appt few weeks back . Right renal cyst- Cystic structure identified in the right kidney measuring 3.2 cm likely cyst or cystic lesion.Radiologist didint specify if simple cyst or concerning . US earlier this year reported bilateral renal cyst 3.4 cm anechoic exophytic cyst in the lower pole of Rt Kidney . CT in 2018 reported 2.7 cm cyst in Rt Kidney . 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 Oncology consulted Pleural effusion - moderate right pleural effusion and small left pleural effusion with mild bibasilar lung atelectasis or infiltrates, Anemia- Hgb stable <10 . Defer to Hem/onc Status loop ileostomy after low anterior resection Takedown of her protective loop ileostomy. She had a low anterior resection almost 2-3 years ago takedown Rheumatoid arthritis - she informed us in February by Dr Ulloa her PCP and switched to Methotrexate COMMENT/RELEVANT DATA Meds Current Medications Medications (Trade) Dose Ordered Sig/Ella Start Time Stop Time Status Last Admin Dose Admin Dicyclomine HCl (Bentyl) 10 mg PRN Q6HRS PRN 10/21/21 19:45 Fentanyl Citrate (Fentanyl 2ml Vial) 50 mcg 1X ONCE 10/19/21 12:00 10/19/21 12:05 DC 10/19/21 13:03 50 MCG Info (CONTRAST GIVEN -- Rx MONITORING) 1 each PRN DAILY PRN 10/20/21 09:45 10/22/21 09:44 10/20/21 14:15 1 EACH Iohexol (Omnipaque 300 Mg/ml) 400 ml 1X ONCE 10/20/21 09:45 10/20/21 09:46 DC Metoprolol Tartrate (Lopressor Vial) 5 mg PRN Q5MIN PRN 10/21/21 19:45 10/21/21 20:42 5 MG Morphine Sulfate (Morphine Sulfate) 2 mg PRN Q2HR PRN 10/21/21 20:45 10/21/21 20:54 2 MG Ondansetron HCl (Zofran) 4 mg PRN Q8HRS PRN 10/19/21 16:30 10/20/21 16:29 DC 10/19/21 22:52 4 MG Pantoprazole Sodium (PROTONIX VIAL for IV PUSH) 40 mg BIDAC 10/19/21 17:30 10/22/21 08:28 40 MG Pharmacy Consult (C.diff Med Screen By Rx) 1 each 1X ONCE 10/20/21 04:00 10/20/21 04:01 Cancel Piperacillin Sod/ Tazobactam Sod 2.25 gm/Sodium Chloride 50 ml @ 100 mls/hr 1X ONCE 10/19/21 13:15 10/19/21 13:44 DC 10/19/21 14:13 100 MLS/HR Prochlorperazine Edisylate (Compazine) 10 mg PRN Q6HRS PRN 10/21/21 20:45 10/21/21 20:54 10 MG Sodium Chloride 1,000 ml @ 75 mls/hr [id number] 10/21/21 12:00 10/21/21 11:07 75 MLS/HR Lab Laboratory Tests Test 10/21/21 14:37 10/22/21 06:20 Prothrombin Time 14.6 SEC (11.7-14.0) Prothromb Time International Ratio 1.2 (0.8-1.1) Sodium Level 146 mmol/L (136-145) Potassium Level 3.8 mmol/L (3.5-5.1) Chloride Level 110 mmol/L (98-107) Carbon Dioxide Level 27 mmol/L (21-32) Anion Gap 9 (6-14) Blood Urea Nitrogen 36 mg/dL (7-20) Creatinine 1.5 mg/dL (0.6-1.0) Estimated GFR (Cockcroft-Gault) 33.2 Glucose Level 111 mg/dL (70-99) Calcium Level 8.2 mg/dL (8.5-10.1) Results All relevant outside records, renal labs, imaging studies, telemetry/EKG's were reviewed. Justicifation of Admission Dx: Justifications for Admission: Justification of Admission Dx: Yes NARCISO VALDOVINOS MD Oct 22, 2021 09:42
--- NOTE | 2021-10-22 11:04 | PDOC ---
[employer] PROGRESS NOTE Date of Service DOS: DATE: 10/22/21 TIME: 11:00 Chief Complaint Chief Complaint SBO Peritoneal seeding suspect cancer Nausea vomiting Anxiety, anemia, diverticulitis, hypertension, renal failure, UTI, mitral valve prolapse, cataracts, colostomy, hysterectomy, previous tobacco abuse. History of Present Illness History of Present Illness 10/22/2021 Patient seen and examined Discussed with RN Chart reviewed Discussed with case management I called oncology The plan is to get a liver biopsy today We suspect the elevated CA 25 level may be due to peritoneal cancer versus gastric cancer versus ovarian cancer (she has had her ovaries removed about 4 years ago however oncology explained she could still have ovarian CA) 10/21/2021 Patient seen and examined She still feels better with her NG in place CA-125 level is elevated to 582 Discussed with case management Discussed with RN 10/20/2021 Patient seen and examined We had to place an NG She states she feels better with the NG to suction Discussed with RN Chart reviewed Vitals/I&O Vitals/I&O: Vital Signs Date Time Temp Pulse Resp B/P (MAP) Pulse Ox O2 Delivery O2 Flow Rate FiO2 10/22/21 10:49 97.7 126 20 157/70 (99) 94 Room Air 97.7 I & O0 10/21/21 10/21/21 10/22/21 15:00 23:00 07:00 Intake Total 20 ml 35 ml 1272 ml Output Total 2000 ml 825 ml Balance 20 ml -1965 ml 447 ml Physical Exam General: Alert, Oriented X3, Cooperative, mild distress Heart: Regular rate, Normal S1, Normal S2, No murmurs Lungs: Clear Abdomen: Soft, No tenderness (Mildly tender diffusely no peritoneal sign), Other (NG tube intact with bilious output) Extremities: No clubbing, No cyanosis, No edema, Normal pulses, No tenderness/swelling Skin: No rashes, No breakdown Labs Labs: Laboratory Tests Test 10/21/21 14:37 10/22/21 06:20 Prothrombin Time 14.6 SEC (11.7-14.0) Prothromb Time International Ratio 1.2 (0.8-1.1) Sodium Level 146 mmol/L (136-145) Potassium Level 3.8 mmol/L (3.5-5.1) Chloride Level 110 mmol/L (98-107) Carbon Dioxide Level 27 mmol/L (21-32) Anion Gap 9 (6-14) Blood Urea Nitrogen 36 mg/dL (7-20) Creatinine 1.5 mg/dL (0.6-1.0) Estimated GFR (Cockcroft-Gault) 33.2 Glucose Level 111 mg/dL (70-99) Calcium Level 8.2 mg/dL (8.5-10.1) Assessment and Plan Assessmemt and Plan Problems Medical Problems: (1) Acute on chronic renal insufficiency Status: Acute (2) Ascites Status: Acute (3) Chronic diarrhea Status: Acute (4) Chronic vomiting Status: Acute (5) Partial small bowel obstruction Status: Acute SBO Peritoneal seeding suspect cancer Elevated CA 19-9 level Elevated CA-125 level Nausea vomiting Effusions YA Anxiety, anemia, diverticulitis, hypertension, renal failure, UTI, mitral valve prolapse, cataracts, colostomy, hysterectomy, previous tobacco abuse. Plan Appreciate oncology input She is going for a liver biopsy today For now continue the following; Await pathology report Cardiac monitoring Continue NG suctioning IV fluids As needed Zofran As needed morphine Home meds when possible DVT prophylaxis Full code Prognosis extremely guarded Comment Review of Relevant I have reviewed the following items mariusz (where applicable) has been applied. Medications: Current Medications Medications (Trade) Dose Ordered Sig/Ella Route PRN Reason Start Time Stop Time Status Last Admin Dose Admin Sodium Chloride 1,000 ml @ 75 mls/hr [id number] IV 10/21/21 12:00 10/21/21 11:07 Metoprolol Tartrate (Lopressor Vial) 5 mg PRN Q5MIN PRN IVP TACHYCARDIA 10/21/21 19:45 10/21/21 20:42 Morphine Sulfate (Morphine Sulfate) 2 mg PRN Q2HR PRN IVP MODERATE TO SEVERE PAIN 10/21/21 20:45 10/21/21 20:54 Prochlorperazine Edisylate (Compazine) 10 mg PRN Q6HRS PRN IV NAUSEA/VOMITING 10/21/21 20:45 10/21/21 20:54 Justifications for Admission Other Justification ANDER ZIMMERMAN III DO Oct 22, 2021 11:03
[2021-10-22] MEDS: METOPROLOL IV PUSH 5 MG/5 ML VIAL. IVP PRN (11:36)
[2021-10-22] MEDS ORDERED: LIDOCAINE WITH 8.4% SOD BICARB 3 ML DISP.SYRIN. ONE (13:03)
[2021-10-22] MEDS ORDERED: GELATIN SPONGE SIZE 12-7MM SPONGE. ONE (13:03)
[2021-10-22] MEDS ORDERED: fentaNYL PF VIAL 100 MCG/2 ML VIAL ONE (13:07)
[2021-10-22] MEDS ORDERED: MIDAZOLAM HCL/PF 2 MG/2 ML VIAL. ONE (13:07)
[2021-10-22] MEDS ORDERED: fentaNYL PF VIAL 100 MCG/2 ML VIAL IV ONE (13:15)
[2021-10-22] MEDS ORDERED: GELATIN SPONGE SIZE 12-7MM SPONGE. TP ONE (13:15)
[2021-10-22] MEDS ORDERED: LIDOCAINE WITH 8.4% SOD BICARB 3 ML DISP.SYRIN. IJ ONE (13:15)
[2021-10-22] MEDS ORDERED: MIDAZOLAM HCL/PF 2 MG/2 ML VIAL. IV ONE (13:15)
--- NOTE | 2021-10-22 13:49 | PDOC ---
MODERATE SEDATION ASSESSMENT RISKS/ALTERNATIVES Risks/Alternatives Risks and alternatives of this type of sedation and procedure discussed with: RISK/ALTERNATIVES: Patient H & P ON CHART H & P H & P on chart and reviewed for co-morbid conditions and appropriate labs. H&P ON CHART: Yes STATUS PREG STATUS ASSESSED: Yes MEDS/ALLERGIES REVIEWED Meds/Allergies Reviewed Medications and Allergies including time and route of recently administered narcotics and sedatives. MEDS/ALLERGIES REVIEWED: Yes ASA RATING ASA RATING: II AIRWAY ASSESSMENT Airway Assessment Airway patency, oral function limitations, presence of caps, crowns, dentures, partials, and ability to extend neck assessed. AIRWAY ASSESSMENT: Yes MALLAMPATI SCORE MALLAMPATI SCORE: II PRE-SEDATION ASSESSMENT PRE-SEDATION ASSESSMENT: Yes DESMOND LEON MD Oct 22, 2021 13:49
--- NOTE | 2021-10-22 13:49 | PDOC ---
BRIEF OPERATIVE NOTE Pre-Op Diagnosis liver mass Post-Op Diagnosis same Procedure Performed CT liver biopsy Surgeon Jeanine HOGUE minimal Anesthesia Type: Conscious Sedation Specimens Obtained 4 x 18g cores Findings CT liver biopsy DESMOND LEON MD Oct 22, 2021 13:49
[2021-10-22] MEDS: IV 1/2 NORMAL SALINE 1,000 ML IV SCH (14:45)
--- NOTE | 2021-10-22 15:38 | RAD ---
Procedure: CT-guided liver biopsy Clinical Indication: Adult female with subtle liver mass Sedation: Conscious sedation using a combination of Versed and fentanyl was provided for 20 minutes, including continuous monitoring of the patients heart rate, rhythm, blood pressure, oxygen saturation and level of arousability by a trained independent observer. Sterility: All elements of maximal sterile barrier technique including the use of a cap, mask, steril e gown, sterile gloves, large sterile sheet, appropriate hand hygiene, and 2% chlorhexidine for cutan eous antisepsis (or acceptable alternative antiseptic per current guidelines) were followed for this procedure. Consent: The procedure was explained in its entirety to the patient or the patients designated repres entative by a member of the treatment team, including a discussion of the risks, benefits and commonl y accepted alternatives to the procedure, as well as the expected consequences of not performing the procedure. Discussion of the risks included, but was not limited to, those that are most frequent an d those that are rare but possibly severe or life-threatening, as well as the possibility of unforese en complications. Technique and Findings: Following informed consent, the patient was prepped and draped in the usual s terile fashion. Preliminary CT scan of the area of interest was performed. 1 percent lidocaine was us ed to achieve local anesthesia. A small dermatotomy was made. Under periodic CT surveillance, a 17-ga uge needle guide was advanced towards the target lesion and 4 separate 18-gauge core biopsy specimens were obtained and preserved in formalin. Gelfoam pledgets were applied as the needle guide was remov ed and hemostasis was achieved with manual compression. Complications: No immediate Impression: 1. CT-guided liver mass biopsy as described. PQRS Compliance Statement: One or more of the following individualized dose reduction techniques were utilized for this examinat ion: 1. Automated exposure control 2. Adjustment of the mA and/or kV according to patient size 3. Use of iterative reconstruction technique Electronically signed by: Alejandro Solorzano MD (10/22/2021 3:35 PM) [id number]
[2021-10-22] MEDS: PROCHLORPERAZINE 10 MG/2 ML VIAL. IV PRN (17:01)
[2021-10-23] MEDS: IV 1/2 NORMAL SALINE 1,000 ML IV SCH ×2 (00:53→13:29)
[2021-10-23 02:13] VITALS: BP 146/65
[2021-10-23] MEDS: METOPROLOL IV PUSH 5 MG/5 ML VIAL. IVP PRN ×2 (03:34→04:07)
[2021-10-23] MEDS ORDERED: DIGOXIN IV 500 MCG/2 ML AMPUL. IV ONE (05:00)
[2021-10-23] MEDS: PANTOPRAZOLE IV PUSH 40 MG VIAL. IVP SCH ×2 (06:16→17:21)
[2021-10-23 07:00] VITALS: BP 116/58
[2021-10-23 07:52] LABS: CALCIUM 8.3 mg/dL (8.5-10.1); CREATININE 1.4 mg/dL (0.6-1.0); GFR 35.9; POTASSIUM 4.2 mmol/L (3.5-5.1)
--- NOTE | 2021-10-23 09:10 | PDOC ---
SURGICAL PROGRESS NOTE DATE: 10/23/21 TIME: 09:09 Subjective resting no bowel function throat sore Vital Signs Vital Signs Date Time Temp Pulse Resp B/P (MAP) Pulse Ox O2 Delivery O2 Flow Rate FiO2 10/23/21 07:00 98.1 120 20 116/58 (77) 98 Nasal Cannula 2.0 98.1 I&O Intake and Output 10/23/21 07:00 Intake Total 600 ml Output Total 225 ml Balance 375 ml Intake Oral 600 ml Output Urine Total 225 ml General: Alert, Cooperative HEENT: Other (ng in place) Abdomen: Other (distended, tender ) Labs Laboratory Tests Test 10/21/21 14:37 10/22/21 06:20 10/23/21 07:35 Prothrombin Time 14.6 SEC (11.7-14.0) Prothromb Time International Ratio 1.2 (0.8-1.1) Sodium Level 146 mmol/L (136-145) 142 mmol/L (136-145) Potassium Level 3.8 mmol/L (3.5-5.1) 4.2 mmol/L (3.5-5.1) Chloride Level 110 mmol/L (98-107) 107 mmol/L (98-107) Carbon Dioxide Level 27 mmol/L (21-32) 26 mmol/L (21-32) Anion Gap 9 (6-14) 9 (6-14) Blood Urea Nitrogen 36 mg/dL (7-20) 31 mg/dL (7-20) Creatinine 1.5 mg/dL (0.6-1.0) 1.4 mg/dL (0.6-1.0) Estimated GFR (Cockcroft-Gault) 33.2 35.9 Glucose Level 111 mg/dL (70-99) 98 mg/dL (70-99) Calcium Level 8.2 mg/dL (8.5-10.1) 8.3 mg/dL (8.5-10.1) Laboratory Tests Test 10/23/21 07:35 Sodium Level 142 mmol/L (136-145) Potassium Level 4.2 mmol/L (3.5-5.1) Chloride Level 107 mmol/L (98-107) Carbon Dioxide Level 26 mmol/L (21-32) Anion Gap 9 (6-14) Blood Urea Nitrogen 31 mg/dL (7-20) Creatinine 1.4 mg/dL (0.6-1.0) Estimated GFR (Cockcroft-Gault) 35.9 Glucose Level 98 mg/dL (70-99) Calcium Level 8.3 mg/dL (8.5-10.1) Problem List Problems Medical Problems: (1) Acute on chronic renal insufficiency Status: Acute (2) Ascites Status: Acute (3) Chronic diarrhea Status: Acute (4) Chronic vomiting Status: Acute (5) Partial small bowel obstruction Status: Acute Assessment/Plan supportive care bx pending Justicifation of Admission Dx: Justifications for Admission: Justification of Admission Dx: Yes MINGO CERVANTES APRN Oct 23, 2021 09:10
[2021-10-23] MEDS ORDERED: PHENOL ORAL SPRAY 177ML BOTTLE. PO PRN (09:15)
[2021-10-23] MEDS ORDERED: BENZOCAINE/MENTHOL LOZENGE. PO PRN (09:15)
--- NOTE | 2021-10-23 09:27 | PDOC ---
[employer] PROGRESS NOTE Date of Service DOS: DATE: 10/23/21 TIME: 09:25 Chief Complaint Chief Complaint SBO Status post liver biopsy Peritoneal seeding suspect cancer Nausea vomiting Anxiety, anemia, diverticulitis, hypertension, renal failure, UTI, mitral valve prolapse, cataracts, colostomy, hysterectomy, previous tobacco abuse. History of Present Illness History of Present Illness 10/23/2021 Patient seen and examined She is on D5 half-normal Chart reviewed Discussed with RN Discussed with case management I spoke with Dr. Banegas he is working on getting the pathology report done soon 10/22/2021 Patient seen and examined Discussed with RN Chart reviewed Discussed with case management I called oncology The plan is to get a liver biopsy today We suspect the elevated CA 25 level may be due to peritoneal cancer versus gastric cancer versus ovarian cancer (she has had her ovaries removed about 4 years ago however oncology explained she could still have ovarian CA) 10/21/2021 Patient seen and examined She still feels better with her NG in place CA-125 level is elevated to 582 Discussed with case management Discussed with RN 10/20/2021 Patient seen and examined We had to place an NG She states she feels better with the NG to suction Discussed with RN Chart reviewed Vitals/I&O Vitals/I&O: Vital Signs Date Time Temp Pulse Resp B/P (MAP) Pulse Ox O2 Delivery O2 Flow Rate FiO2 10/23/21 07:00 98.1 120 20 116/58 (77) 98 Nasal Cannula 2.0 98.1 I & O 10/22/21 10/22/21 10/23/21 15:00 23:00 07:00 Intake Total 0 ml 600 ml Output Total 225 ml Balance 0 ml 375 ml Physical Exam General: Alert, Cooperative Heart: Regular rate, Normal S1, Normal S2, No murmurs Lungs: Clear Abdomen: Other (distended, tender, NG to suction) Extremities: No clubbing, No cyanosis, No edema, Normal pulses, No tenderness/swelling Skin: No rashes, No breakdown Labs Labs: Laboratory Tests Test 10/23/21 07:35 Sodium Level 142 mmol/L (136-145) Potassium Level 4.2 mmol/L (3.5-5.1) Chloride Level 107 mmol/L (98-107) Carbon Dioxide Level 26 mmol/L (21-32) Anion Gap 9 (6-14) Blood Urea Nitrogen 31 mg/dL (7-20) Creatinine 1.4 mg/dL (0.6-1.0) Estimated GFR (Cockcroft-Gault) 35.9 Glucose Level 98 mg/dL (70-99) Calcium Level 8.3 mg/dL (8.5-10.1) Assessment and Plan Assessmemt and Plan Problems Medical Problems: (1) Acute on chronic renal insufficiency Status: Acute (2) Ascites Status: Acute (3) Chronic diarrhea Status: Acute (4) Chronic vomiting Status: Acute (5) Partial small bowel obstruction Status: Acu SBO Status post liver biopsy Peritoneal seeding suspect cancer Nausea vomiting Anxiety, anemia, diverticulitis, hypertension, renal failure, UTI, mitral valve prolapse, cataracts, colostomy, hysterectomy, previous tobacco abuse. Plan Awaiting liver biopsy results Discuss with pathology Continue NG suction As needed Zofran As needed pain meds Trend labs Continue IV fluids Appreciate subspecialist input Long-term prognosis-extremely guarded Comment Review of Relevant I have reviewed the following items mariusz (where applicable) has been applied. Medications: Current Medications Medications (Trade) Dose Ordered Sig/Ella Route PRN Reason Start Time Stop Time Status Last Admin Dose Admin Lidocaine HCl (Buffered Lidocaine 1%) 3 ml 1X ONCE IJ 10/22/21 13:15 10/22/21 13:19 DC 10/22/21 13:34 Midazolam HCl (Versed) 2 mg 1X ONCE IV 10/22/21 13:15 10/22/21 13:19 DC 10/22/21 13:33 Fentanyl Citrate (Fentanyl 2ml Vial) 100 mcg 1X ONCE IV 10/22/21 13:15 10/22/21 13:19 DC 10/22/21 13:33 Gelatin (Gelfoam Size 12-7mm) 1 each 1X ONCE TP 10/22/21 13:15 10/22/21 13:19 DC 10/22/21 13:38 Digoxin (Lanoxin) 500 mcg 1X ONCE IV 10/23/21 05:00 10/23/21 05:01 DC 10/23/21 05:01 Justifications for Admission Other Justification ANDER ZIMMERMAN III DO Oct 23, 2021 09:27
--- NOTE | 2021-10-23 10:02 | PDOC ---
Date of Service: DATE: 10/23/21 TIME: 09:58 Subjective: Subjective: Says her heart went crazy overnight - up in 200s. No flatus or stool. Still uncomfortable. Objective: Objective: D/w nurse - ongoing NG output, s/p liver biopsy yesterday. On IV metoprolol PRN. Vital Signs: Vital Signs Date Time Temp Pulse Resp B/P (MAP) Pulse Ox O2 Delivery O2 Flow Rate FiO2 10/23/21 07:00 98.1 120 20 116/58 (77) 98 Nasal Cannula 2.0 98.1 Labs: Laboratory Tests Test 10/23/21 07:35 Sodium Level 142 mmol/L Potassium Level 4.2 mmol/L Chloride Level 107 mmol/L Carbon Dioxide Level 26 mmol/L Anion Gap 9 Blood Urea Nitrogen 31 mg/dL Creatinine 1.4 mg/dL Estimated GFR (Cockcroft-Gault) 35.9 Glucose Level 98 mg/dL Calcium Level 8.3 mg/dL BLOOD CULTURE Preliminary NO GROWTH AFTER 3 DAYS PE: GEN: appears chronically ill - was resting LUNGS: CTAB anteriorly HEART: tachycardic ABD: tender, quiet NEURO/PSYCH: A & O 3 A/P: Suspected metastatic disease s/p liver biopsy 10/22/21 SBO JESÚS/ACD Tachycardia -- Await biopsy results, continue NGT. Justicifation of Admission Dx: Justifications for Admission: Justification of Admission Dx: Yes IRASEMA MCCARTY Oct 23, 2021 10:02
[2021-10-23 11:00] VITALS: BP 141/64
--- NOTE | 2021-10-23 11:59 | PDOC ---
DATE OF SERVICE DATE: 10/23/21 TIME: 11:53 SUBJECTIVE ROS No N/V. feeling better ;had Liver Bx yesterday - states feeling tired since. Denies SOB OBJECTIVE Vital Signs Vital Signs Date Time Temp Pulse Resp B/P (MAP) Pulse Ox O2 Delivery O2 Flow Rate FiO2 10/23/21 11:00 110 18 141/64 (89) 95 Nasal Cannula 2.0 10/23/21 07:00 98.1 98.1 I & 0 Intake and Output 10/23/21 07:00 Intake Total 600 ml Output Total 225 ml Balance 375 ml Intake Oral 600 ml Output Urine Total 225 ml PHYSICAL EXAM Physical Exam GEN: NAD HEEN: OM moist , NG tube in place NECK: Supple CVS: RRR RESP: CTA, No access Muscle use GI: BS + ve, Non Tender, NEURO- Grossly normal SKIN- No Rash Psych Cooperative [place] + 10/19/21; No CVA tenderness, No Suprapubic Tenderness, DIAGNOSIS/ASSESSMENT Assessment & Plan YA- Vasomotor 2/2 Dehydration- Diarrhea/Vomiting, Low BP POA , Non Oliguric; Creat improving . Supportive care, continue IVF , Avoid nephrotoxins , UOP accuracy ?? .. Voiding trial before dc CKD stage 3- Baseline Cr 1.4-1.6. Intermittent YA during Hospitalization at [facility] . Reviewed recent labs 09/22/21 from our office records Creat was 1.5 . She follows with us as OP . Last seen February 2021; missed fu appt few weeks back . Right renal cyst- Cystic structure identified in the right kidney measuring 3.2 cm likely cyst or cystic lesion.Radiologist didint specify if simple cyst or concerning . US earlier this year reported bilateral renal cyst 3.4 cm anechoic exophytic cyst in the lower pole of Rt Kidney . CT in 2018 reported 2.7 cm cyst in Rt Kidney . 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 Oncology consulted Pleural effusion - moderate right pleural effusion and small left pleural effusion with mild bibasilar lung atelectasis or infiltrates, Anemia- Hgb stable <10 . Defer to Hem/onc Status loop ileostomy after low anterior resection Takedown of her protective loop ileostomy. She had a low anterior resection almost 2-3 years ago takedown Rheumatoid arthritis - she informed us in February by Dr Ulloa her PCP and switched to Methotrexate COMMENT/RELEVANT DATA Meds Current Medications Medications (Trade) Dose Ordered Sig/Ella Start Time Stop Time Status Last Admin Dose Admin Dicyclomine HCl (Bentyl) 10 mg PRN Q6HRS PRN 10/21/21 19:45 Digoxin (Lanoxin) 500 mcg 1X ONCE 10/23/21 05:00 10/23/21 05:01 DC 10/23/21 05:01 500 MCG Fentanyl Citrate (Fentanyl 2ml Vial) 100 mcg 1X ONCE 10/22/21 13:15 10/22/21 13:19 DC 10/22/21 13:33 50 MCG Gelatin (Gelfoam Size 12-7mm) 1 each 1X ONCE 10/22/21 13:15 10/22/21 13:19 DC 10/22/21 13:38 1 EACH Info (CONTRAST GIVEN -- Rx MONITORING) 1 each PRN DAILY PRN 10/20/21 09:45 10/22/21 09:44 DC 10/20/21 14:15 1 EACH Iohexol (Omnipaque 300 Mg/ml) 400 ml 1X ONCE 10/20/21 09:45 10/20/21 09:46 DC Lidocaine HCl (Buffered Lidocaine 1%) 3 ml 1X ONCE 10/22/21 13:15 10/22/21 13:19 DC 10/22/21 13:34 7 ML Metoprolol Tartrate (Lopressor Vial) 5 mg PRN Q5MIN PRN 10/21/21 19:45 10/23/21 04:07 5 MG Midazolam HCl (Versed) 2 mg 1X ONCE 10/22/21 13:15 10/22/21 13:19 DC 10/22/21 13:33 0.5 MG Morphine Sulfate (Morphine Sulfate) 2 mg PRN Q2HR PRN 10/21/21 20:45 10/21/21 20:54 2 MG Ondansetron HCl (Zofran) 4 mg PRN Q8HRS PRN 10/19/21 16:30 10/20/21 16:29 DC 10/19/21 22:52 4 MG Pantoprazole Sodium (PROTONIX VIAL for IV PUSH) 40 mg BIDAC 10/19/21 17:30 10/23/21 06:16 40 MG Pharmacy Consult (C.diff Med Screen By Rx) 1 each 1X ONCE 10/20/21 04:00 10/20/21 04:01 Cancel Phenol (Chloraseptic) 1 spray PRN Q2HR PRN 10/23/21 09:15 Piperacillin Sod/ Tazobactam Sod 2.25 gm/Sodium Chloride 50 ml @ 100 mls/hr 1X ONCE 10/19/21 13:15 10/19/21 13:44 DC 10/19/21 14:13 100 MLS/HR Prochlorperazine Edisylate (Compazine) 10 mg PRN Q6HRS PRN 10/21/21 20:45 10/22/21 17:01 10 MG Sodium Chloride 1,000 ml @ 75 mls/hr [id number] 10/21/21 12:00 10/23/21 00:53 75 MLS/HR Throat Lozenges (Cepacol Sore Throat Lozenge) 1 han PRN Q2HRS PRN 10/23/21 09:15 Lab Laboratory Tests Test 10/23/21 07:35 Sodium Level 142 mmol/L (136-145) Potassium Level 4.2 mmol/L (3.5-5.1) Chloride Level 107 mmol/L (98-107) Carbon Dioxide Level 26 mmol/L (21-32) Anion Gap 9 (6-14) Blood Urea Nitrogen 31 mg/dL (7-20) Creatinine 1.4 mg/dL (0.6-1.0) Estimated GFR (Cockcroft-Gault) 35.9 Glucose Level 98 mg/dL (70-99) Calcium Level 8.3 mg/dL (8.5-10.1) Results All relevant outside records, renal labs, imaging studies, telemetry/EKG's were reviewed. Justicifation of Admission Dx: Justifications for Admission: Justification of Admission Dx: Yes NARCISO VALDOVINOS MD Oct 23, 2021 11:59
--- NOTE | 2021-10-23 12:07 | PDOC ---
PROGRESS NOTES Date of Service DATE: 10/23/21 TIME: 12:04 Subjective Subjective No interval history. Received biopsy yesterday. Objective Objective Vital Signs Date Time Temp Pulse Resp B/P (MAP) Pulse Ox O2 Delivery O2 Flow Rate FiO2 10/23/21 11:00 110 18 141/64 (89) 95 Nasal Cannula 2.0 10/23/21 07:00 98.1 98.1 Intake and Output 10/23/21 07:00 Intake Total 600 ml Output Total 225 ml Balance 375 ml Intake Oral 600 ml Output Urine Total 225 ml Physical Exam Abdomen: Normal bowel sounds, Soft Heart: Regular rate General: Alert HEENT: Atraumatic Lungs: Clear to auscultation MUSCULOSKELETAL: No swelling Neck: Supple Assessment Assessment Assessment: Small bowel obstruction Peritoneal carcinomatosis Liver metastasis Elevated CA-125 Normocytic anemia Thrombocytosis, likely reactive YA Plan Plan of Care -We discussed the results of CT findings previously and the concern for metastatic cancer. We previously discussed the management of advanced cancers with peritoneal carcinomatosis and liver metastases. I reviewed with her that the role of treatment in this setting is palliation and prolonging life. We discussed that her current functional status and complication with small bowel obstruction with place her at prohibitive risk for chemotherapy related toxicity. -She was interested in obtaining a biopsy for diagnosis before discussing goals of care. Recommended CT-guided biopsy of liver mass and she received this on 10/25/2021. We will follow up on pathology -Noted results of CT chest -Noted results of tumor markers: Elevated CEA, CA 19-9 and CA-125. -Continue management of small bowel obstruction per surgery service -Management of YA per primary service -Encourage discussion for changing status to DNR Griffin Joy MD Medical Oncology/Hematology Ph: [phone] Comment Review of Relevant I have reviewed the following items mariusz (where applicable) has been applied. Labs Laboratory Tests Test 10/21/21 14:37 10/22/21 06:20 10/23/21 07:35 Prothrombin Time 14.6 SEC (11.7-14.0) Prothromb Time International Ratio 1.2 (0.8-1.1) Sodium Level 146 mmol/L (136-145) 142 mmol/L (136-145) Potassium Level 3.8 mmol/L (3.5-5.1) 4.2 mmol/L (3.5-5.1) Chloride Level 110 mmol/L (98-107) 107 mmol/L (98-107) Carbon Dioxide Level 27 mmol/L (21-32) 26 mmol/L (21-32) Anion Gap 9 (6-14) 9 (6-14) Blood Urea Nitrogen 36 mg/dL (7-20) 31 mg/dL (7-20) Creatinine 1.5 mg/dL (0.6-1.0) 1.4 mg/dL (0.6-1.0) Estimated GFR (Cockcroft-Gault) 33.2 35.9 Glucose Level 111 mg/dL (70-99) 98 mg/dL (70-99) Calcium Level 8.2 mg/dL (8.5-10.1) 8.3 mg/dL (8.5-10.1) Laboratory Tests Test 10/23/21 07:35 Sodium Level 142 mmol/L (136-145) Potassium Level 4.2 mmol/L (3.5-5.1) Chloride Level 107 mmol/L (98-107) Carbon Dioxide Level 26 mmol/L (21-32) Anion Gap 9 (6-14) Blood Urea Nitrogen 31 mg/dL (7-20) Creatinine 1.4 mg/dL (0.6-1.0) Estimated GFR (Cockcroft-Gault) 35.9 Glucose Level 98 mg/dL (70-99) Calcium Level 8.3 mg/dL (8.5-10.1) Microbiology 10/19/21 Blood Culture - Preliminary, Resulted NO GROWTH AFTER 3 DAYS Medications Current Medications Sodium Chloride 1,000 ml @ 1,000 mls/hr 1X ONCE IV Last administered on 10/19/21at 12:48; Start 10/19/21 at 12:00; Stop 10/19/21 at 12:59; Status DC Ondansetron HCl (Zofran) 4 mg 1X ONCE IVP Last administered on 10/19/21at 13:03; Start 10/19/21 at 12:00; Stop 10/19/21 at 12:05; Status DC Fentanyl Citrate (Fentanyl 2ml Vial) 50 mcg 1X ONCE IVP Last administered on 10/19/21at 13:03; Start 10/19/21 at 12:00; Stop 10/19/21 at 12:05; Status DC Piperacillin Sod/ Tazobactam Sod 2.25 gm/Sodium Chloride 50 ml @ 100 mls/hr 1X ONCE IV Last administered on 10/19/21at 14:13; Start 10/19/21 at 13:15; Stop 10/19/21 at 13:44; Status DC Ondansetron HCl (Zofran) 4 mg PRN Q8HRS PRN IVP NAUSEA/VOMITING Last administered on 10/19/21at 22:52; Start 10/19/21 at 16:30; Stop 10/20/21 at 16:29 ; Status DC Morphine Sulfate (Morphine Sulfate) 2 mg PRN Q2HR PRN IVP PAIN Last administered on 10/20/21at 03:48; Start 10/19/21 at 16:30; Stop 10/20/21 at 16:29; Status DC Pantoprazole Sodium (PROTONIX VIAL for IV PUSH) 40 mg BIDAC IVP Last administered on 10/23/21at 06:16; Start 10/19/21 at 17:30 Pharmacy Consult (C.diff Med Screen By Rx) 1 each 1X ONCE MC ; Start 10/20/21 at 04:00; Stop 10/20/21 at 04:01; Status Cancel Sodium Chloride 1,000 ml @ 75 mls/hr [id number] IV Last administered on 10/20/21at 08:52; Start 10/20/21 at 08:45; Stop 10/21/21 at 10:58; Status DC Iohexol (Omnipaque 300 Mg/ml) 400 ml 1X ONCE IJ ; Start 10/20/21 at 09:45; Stop 10/20/21 at 09:46; Status DC Info (CONTRAST GIVEN -- Rx MONITORING) 1 each PRN DAILY PRN MC SEE COMMENTS [facility] administered on 10/20/21at 14:15; Start 10/20/21 at 09:45; Stop 10/22/21 at 09:44; Status DC Morphine Sulfate (Morphine Sulfate) 2 mg 1X ONCE IM ; Start 10/21/21 at 08:45; Stop 10/21/21 at 08:46; Status DC Sodium Chloride 1,000 ml @ 75 mls/hr [id number] IV Last administered on 10/23/21at 00:53; Start 10/21/21 at 12:00 Metoprolol Tartrate (Lopressor Vial) 5 mg PRN Q5MIN PRN IVP TACHYCARDIA Last administered on 10/23/21at 04:07; Start 10/21/21 at 19:45 Dicyclomine HCl (Bentyl) 10 mg PRN Q6HRS PRN IM abd pain; Start 10/21/21 at 19:45 Morphine Sulfate (Morphine Sulfate) 2 mg PRN Q2HR PRN IVP MODERATE TO SEVERE PAIN Last administered on 10/21/21at 20:54; Start 10/21/21 at 20:45 Prochlorperazine Edisylate (Compazine) 10 mg PRN Q6HRS PRN IV NAUSEA/VOMITING Last administered on 10/22/21at 17:01; Start 10/21/21 at 20:45 Lidocaine HCl (Buffered Lidocaine 1%) 3 ml STK-MED ONCE .ROUTE ; Start 10/22/21 at 13:03; Stop 10/22/21 at 13:03; Status DC Gelatin (Gelfoam Size 12-7mm) 1 each STK-MED ONCE .ROUTE ; Start 10/22/21 at 13:03; Stop 10/22/21 at 13:04; Status DC Midazolam HCl (Versed) 2 mg STK-MED ONCE .ROUTE ; Start 10/22/21 at 13:07; Stop 10/22/21 at 13:08; Status DC Fentanyl Citrate (Fentanyl 2ml Vial) 100 mcg STK-MED ONCE .ROUTE ; Start 10/22/21 at 13:07; Stop 10/22/21 at 13:08; Status DC Lidocaine HCl (Buffered Lidocaine 1%) 3 ml 1X ONCE IJ Last administered on 10/22/21at 13:34; Start 10/22/21 at 13:15; Stop 10/22/21 at 13:19; Status DC Midazolam HCl (Versed) 2 mg 1X ONCE IV Last administered on 10/22/21at 13:33; Start 10/22/21 at 13:15; Stop 10/22/21 at 13:19; Status DC Fentanyl Citrate (Fentanyl 2ml Vial) 100 mcg 1X ONCE IV Last administered on 10/22/21at 13:33; Start 10/22/21 at 13:15; Stop 10/22/21 at 13:19; Status DC Gelatin (Gelfoam Size 12-7mm) 1 each 1X ONCE TP Last administered on 10/22/21at 13:38; Start 10/22/21 at 13:15; Stop 10/22/21 at 13:19; Status DC Digoxin (Lanoxin) 500 mcg 1X ONCE IV Last administered on 10/23/21at 05:01; Start 10/23/21 at 05:00; Stop 10/23/21 at 05:01; Status DC Phenol (Chloraseptic) 1 spray PRN Q2HR PRN PO SORE THROAT; Start 10/23/21 at 09:15 Throat Lozenges (Cepacol Sore Throat Lozenge) 1 han PRN Q2HRS PRN PO SORE THROAT; Start 10/23/21 at 09:15 Active Scripts Active Ondansetron Odt (Ondansetron) 4 Mg Tab.rapdis 1 Tab PO PRN Q6-8HRS Dicyclomine Hcl 10 Mg Capsule 10 Mg PO PRN QID PRN Reported Stool Softener (Docusate Sodium) 50 Mg Capsule 1 Cap PO DAILY PRN 30 Days Tylenol (Acetaminophen) 325 Mg Tablet 1-2 Tab PO HS Perphen-Amitrip 2 Mg-10 Mg Tab (Perphenazine/Amitriptyline Hcl) 1 Each Tablet 1 Tab PO QHS Methotrexate (Methotrexate Sodium) 2.5 Mg Tablet 10 Tab PO TUESDAY Folic Acid 0.8 Mg Capsule 1 Cap PO DAILY 30 Days Vitamin D3 (Vitamin D) 25 Mcg Tablet 25 Mcg PO DAILY 1,000 UNITS = 25 MCG Amlodipine Besylate 2.5 Mg Tablet 2.5 Mg PO DAILY Vit C-Quyen Hips 500 mg Chew Tb (Ascorbic Acid/Ascorbate Sodium) 500 Mg Tab.chew 500 Mg PO DAILY Probiotic Acidophilus (Lactobacillus Acidophilus) 1 Each Tablet 1 Each PO DAILY Metoprolol Tartrate 50 Mg Tablet 50 Mg PO BID Omeprazole 20 Mg Tablet.dr 20 Mg PO DAILY Multivitamins (Multivitamin) 1 Each Tablet 1 Tab PO DAILY Vitals/I & O Vital Sign - Last 24 Hours 10/22/21 10/22/21 10/22/21 10/22/21 13:26 13:33 13:34 13:37 Pulse 122 125 124 Resp 24 22 B/P (MAP) 149/77 (101) 120/67 (84) Pulse Ox 98 97 90 O2 Delivery Nasal Cannula Nasal Cannula Nasal Cannula O2 Flow Rate 2.0 2.0 2.0 10/22/21 10/22/21 10/22/21 10/22/21 13:42 13:49 15:33 18:42 Temp 97.6 98.2 97.6 98.2 Pulse 125 126 117 124 Resp 22 B/P (MAP) 122/68 (86) 138/62 (87) 133/60 (84) Pulse Ox 96 96 95 97 O2 Delivery Nasal Cannula Nasal Cannula Room Air Nasal Cannula O2 Flow Rate 4.0 2.0 2.0 10/22/21 10/22/21 10/23/21 10/23/21 20:00 22:38 02:13 03:34 Temp 97.8 97.9 97.8 97.9 Pulse 119 117 171 Resp 20 18 B/P (MAP) 121/63 (82) 146/65 (92) 141/65 Pulse Ox 98 98 O2 Delivery Room Air Nasal Cannula Nasal Cannula O2 Flow Rate 2.0 2.0 10/23/21 10/23/21 10/23/21 10/23/21 04:07 05:01 07:00 08:20 Temp 98.1 98.1 Pulse 160 161 120 Resp 20 B/P (MAP) 112/63 112/63 116/58 (77) Pulse Ox 98 O2 Delivery Nasal Cannula Room Air O2 Flow Rate 2.0 10/23/21 11:00 Pulse 110 Resp 18 B/P (MAP) 141/64 (89) Pulse Ox 95 O2 Delivery Nasal Cannula O2 Flow Rate 2.0 Intake and Output 10/22/21 10/22/21 10/23/21 15:00 23:00 07:00 Intake Total 0 ml 600 ml Output Total 225 ml Balance 0 ml 375 ml Justifications for Admission Other Justification Nutrition Consultation Dietary Evaluation: Recommendations by RD: Dietary education by RD Comments: rec diet per GI Expected Outcomes/Goals: to meet > 75% est nutr needs via po intake vs comfort care Malnutrition Findings: Muscle Mass (Severe): Severe Depletion Body Fat Depletion (Non Severe: Mod to Severe Weight Status: Underweight IMELDA JOY MD Oct 23, 2021 12:07
--- NOTE | 2021-10-23 12:58 | NUR ---
SS following up with discharge planning. SS reviewed pt chart and discussed with pt RN. Pt is currently requiring oxygen at two liters nasal canula. Liver biopsy on 10/22/2021. Cardiology, Gynecology, GI, Surgery, Oncology, and Nephrology following. Pt is skilled rehabilitation resident from [facility], ; fax [phone]. PT/OT when medically ready to participate. SS will continue to follow for discharge planning.
--- NOTE | 2021-10-23 13:09 | PDOC2 ---
CARDIAC CONSULT DATE OF CONSULT Date of Consult DATE: 10/23/21 TIME: 12:52 REASON FOR CONSULT Reason for Consult: SVT REFERRING PHYSICIAN Referring Physician: Carley SOURCE Source: Chart review, Patient HISTORY OF PRESENT ILLNESS HISTORY OF PRESENT ILLNESS This is an 81 yo female admitted for complains abdominal pain and diarrhea. She was recently discharged a week prior this current admission then readmitted due to the latter. Further testing then noted her with small bowel obstruction with suspected liver metastasis. On prior admission I saw her for sinus tachycardia no AFIB at that time. Denies any chest pain or SOA. No palpitations. Presently has an NGT due to SBO. PAST MEDICAL HISTORY Past Medical History Cardiovascular: HTN, Hyperlipidemia, Valve insufficiency, Other (PSVT) GI: Diverticulosis, GERD Psych: Anxiety Musculoskeletal: low back pain, Osteoarthritis ENT: Other (apistaxis) Renal/: Chronic renal insuff Endocrine: Osteopenia PAST SURGICAL HISTORY Past Surgical History Appendectomy, Hysterectomy (partial), Colon Resection, Other (colostomy and takedown) FAMILY HISTORY Family History noncontributory to CV SOCIAL HISTORY Smoke: Quit ALCOHOL: none CURRENT MEDICATIONS CURRENT MEDICATIONS Current Medications Medications (Trade) Dose Ordered Sig/Ella Route PRN Reason Start Time Stop Time Status Last Admin Dose Admin Lidocaine HCl (Buffered Lidocaine 1%) 3 ml 1X ONCE IJ 10/22/21 13:15 10/22/21 13:19 DC 10/22/21 13:34 Midazolam HCl (Versed) 2 mg 1X ONCE IV 10/22/21 13:15 10/22/21 13:19 DC 10/22/21 13:33 Fentanyl Citrate (Fentanyl 2ml Vial) 100 mcg 1X ONCE IV 10/22/21 13:15 10/22/21 13:19 DC 10/22/21 13:33 Gelatin (Gelfoam Size 12-7mm) 1 each 1X ONCE TP 10/22/21 13:15 10/22/21 13:19 DC 10/22/21 13:38 Digoxin (Lanoxin) 500 mcg 1X ONCE IV 10/23/21 05:00 10/23/21 05:01 DC 10/23/21 05:01 ALLERGIES ALLERGIES: Coded Allergies: adhesive (Verified Allergy, Intermediate, Rash, 10/19/21) ROS Review of System 14 point ROS evlauated with pertinent positives noted per HPI PHYSICAL EXAM General: Alert, Oriented X3, Cooperative, No acute distress HEENT: Atraumatic, Mucous membr. moist/pink Lungs: Other (diminished) Heart: Regular rate (Sinus tachycardia), Normal S1, Normal S2, No murmurs Abdomen: Soft, Other (NGT with billous drain) Extremities: No cyanosis, No edema Skin: No breakdown, No significant lesion Neuro: Normal speech, Sensation intact Psych/Mental Status: Mental status NL, Mood NL MUSCULOSKELETAL: Osteoarthritic changes both hands VITALS/I&O VITALS/I&O: Vital Signs Date Time Temp Pulse Resp B/P (MAP) Pulse Ox O2 Delivery O2 Flow Rate FiO2 10/23/21 11:00 110 18 141/64 (89) 95 Nasal Cannula 2.0 10/23/21 07:00 98.1 98.1 I & O 10/22/21 10/22/21 10/23/21 15:00 23:00 07:00 Intake Total 0 ml 600 ml Output Total 225 ml Balance 0 ml 375 ml LABS Lab: Laboratory Tests Test 10/23/21 07:35 Sodium Level 142 mmol/L (136-145) Potassium Level 4.2 mmol/L (3.5-5.1) Chloride Level 107 mmol/L (98-107) Carbon Dioxide Level 26 mmol/L (21-32) Anion Gap 9 (6-14) Blood Urea Nitrogen 31 mg/dL (7-20) H Creatinine 1.4 mg/dL (0.6-1.0) H Estimated GFR (Cockcroft-Gault) 35.9 Glucose Level 98 mg/dL (70-99) Calcium Level 8.3 mg/dL (8.5-10.1) L Laboratory Tests 10/23/21 07:35 ASSESSMENT/PLAN ASSESSMENT/PLAN 1. Abdominal pain/diarrhea: noted with SBO and peritoneal carcinomatosis with liver mets 2. Arrhythmia: PAFIB last night new converted to SR/ST with digoxin likely precipitated by above 3. Chronic diastolic CHF: compensated 4. HTN: Controlled Recommendations 1. Liver biopsy result pending. Start on IV lopressor while NPO 2. Poor prognosis. Supportive care KY RUIZ APRN Oct 23, 2021 13:09
[2021-10-23] MEDS: METOPROLOL IV PUSH 5 MG/5 ML VIAL. IVP SCH ×2 (13:30→17:22)
[2021-10-23 15:00] VITALS: BP 141/64
[2021-10-23 20:45] VITALS: BP 161/72
[2021-10-23 23:44] VITALS: BP 154/67
[2021-10-24] VITALS (7 sets, daily range): BP systolic 134–158; BP diastolic 62–76
[2021-10-24] MEDS: IV 1/2 NORMAL SALINE 1,000 ML IV SCH (00:21)
[2021-10-24] MEDS: METOPROLOL IV PUSH 5 MG/5 ML VIAL. IVP SCH ×5 (00:23→23:55)
[2021-10-24] MEDS: MORPHINE SULFATE 2 MG/ML INJ. IVP PRN ×2 (02:20→22:19)
[2021-10-24] MEDS: PANTOPRAZOLE IV PUSH 40 MG VIAL. IVP SCH ×2 (05:33→17:16)
[2021-10-24 07:17] LABS: CALCIUM 8.2 mg/dL (8.5-10.1); CREATININE 1.2 mg/dL (0.6-1.0); GFR 42.9; POTASSIUM 4.1 mmol/L (3.5-5.1)
--- NOTE | 2021-10-24 09:52 | PDOC ---
Renal-Progress Notes Subjective Notes Notes LESS ABD PAIN History of Present Illness Hx of present illness STABLE Vitals Vitals Vital Signs Date Time Temp Pulse Resp B/P (MAP) Pulse Ox O2 Delivery O2 Flow Rate FiO2 10/24/21 07:00 97.9 103 18 140/63 (88) 99 Nasal Cannula 2.0 97.9 Weight Weight [ ] I.O. Intake and Output Intake and Output 10/24/21 07:00 Intake Total 1960 ml Output Total 1250 ml Balance 710 ml Intake Oral 160 ml IV Total 1800 ml Output Urine Total 650 ml Gastric Drainage Total 600 ml # Bowel Movements 1 Labs Labs Laboratory Tests Test 10/24/21 06:40 Sodium Level 143 mmol/L (136-145) Potassium Level 4.1 mmol/L (3.5-5.1) Chloride Level 106 mmol/L (98-107) Carbon Dioxide Level 25 mmol/L (21-32) Anion Gap 12 (6-14) Blood Urea Nitrogen 24 mg/dL (7-20) Creatinine 1.2 mg/dL (0.6-1.0) Estimated GFR (Cockcroft-Gault) 42.9 Glucose Level 81 mg/dL (70-99) Calcium Level 8.2 mg/dL (8.5-10.1) Micro Micro Microbiology 10/19/21 Blood Culture - Preliminary, Resulted NO GROWTH AFTER 4 DAYS Review of Systems Constitutional: yes: weakness, alert, oriented Ears/Nose/Throat: Yes: no symptom reported Eyes: Yes: no symptom reported Pulmonary: Yes no symptom reported Cardiovascular: Yes no symptom reported Gastrointestional: Yes: nausea, abdominal pain Genitourinary: Yes: no symptom reported Musculoskeletal: Yes: no symptom reported Skin: Yes no symptom reported Psychiatric/Neurological: Yes: no symptom reported Endocrine: Yes: no symptom reported Physical Exam General Appearance: no apparent distress Skin: warm Respiratory: bilateral CTA Heart: S1S2 Abdomen: soft, bowel sounds present Genitourinary: bladder flat Extremities: atrophy Neurology: alert Assessment Assessment IMP YA-RESOLVED HYPERNATREMIA-RESOLVED ABD PAIN WITH DIARRHEA PERITONEAL CARCINOMATOSIS WITH LIVER METS PLAN BX PENDING RENAL FAILURE RESOLVED I WILL SIGN OFF MARTHA PRITCHARD MD Oct 24, 2021 09:52
--- NOTE | 2021-10-24 10:13 | PDOC ---
[employer] PROGRESS NOTE Date of Service DOS: DATE: 10/24/21 TIME: 10:11 Chief Complaint Chief Complaint SBO Status post liver biopsy Peritoneal seeding suspect cancer Nausea vomiting Anxiety, anemia, diverticulitis, hypertension, renal failure, UTI, mitral valve prolapse, cataracts, colostomy, hysterectomy, previous tobacco abuse. History of Present Illness History of Present Illness 10/24/2021 Patient seen and examined She is resting with no apparent distress Discussed with her RN Chart reviewed Pathology results still pending 10/23/2021 Patient seen and examined She is on D5 half-normal Chart reviewed Discussed with RN Discussed with case management I spoke with Dr. Banegas he is working on getting the pathology report done soon 10/22/2021 Patient seen and examined Discussed with RN Chart reviewed Discussed with case management I called oncology The plan is to get a liver biopsy today We suspect the elevated CA 25 level may be due to peritoneal cancer versus gastric cancer versus ovarian cancer (she has had her ovaries removed about 4 years ago however oncology explained she could still have ovarian CA) 10/21/2021 Patient seen and examined She still feels better with her NG in place CA-125 level is elevated to 582 Discussed with case management Discussed with RN 10/20/2021 Patient seen and examined We had to place an NG She states she feels better with the NG to suction Discussed with RN Chart reviewed Vitals/I&O Vitals/I&O: Vital Signs Date Time Temp Pulse Resp B/P (MAP) Pulse Ox O2 Delivery O2 Flow Rate FiO2 10/24/21 07:00 97.9 103 18 140/63 (88) 99 Nasal Cannula 2.0 97.9 I & O 10/23/21 10/23/21 10/24/21 15:00 23:00 07:00 Intake Total 1000 ml 960 ml Output Total 600 ml 650 ml Balance 400 ml 310 ml Physical Exam General: No acute distress Heart: Regular rate (Sinus tachycardia), Normal S1, Normal S2, No murmurs Lungs: Clear Abdomen: Soft, Other (NGT with billous drain) Extremities: No cyanosis, No edema Skin: No breakdown, No significant lesion Labs Labs: Laboratory Tests Test 10/24/21 06:40 Sodium Level 143 mmol/L (136-145) Potassium Level 4.1 mmol/L (3.5-5.1) Chloride Level 106 mmol/L (98-107) Carbon Dioxide Level 25 mmol/L (21-32) Anion Gap 12 (6-14) Blood Urea Nitrogen 24 mg/dL (7-20) Creatinine 1.2 mg/dL (0.6-1.0) Estimated GFR (Cockcroft-Gault) 42.9 Glucose Level 81 mg/dL (70-99) Calcium Level 8.2 mg/dL (8.5-10.1) Assessment and Plan Assessmemt and Plan Problems Medical Problems: (1) Acute on chronic renal insufficiency Status: Acute (2) Ascites Status: Acute (3) Chronic diarrhea Status: Acute (4) Chronic vomiting Status: Acute (5) Partial small bowel obstruction StatSBO Status post liver biopsy Peritoneal seeding suspect cancer Elevated CA 19-9, CA-125, CEA Nausea vomiting Anxiety, anemia, diverticulitis, hypertension, renal failure, UTI, mitral valve prolapse, cataracts, colostomy, hysterectomy, previous tobacco abuse. Plan Still awaiting liver biopsy results Discuss with pathology Continue NG suction Discussed with pharmacy we will start D5 LR (we are out of Clinimix for now) As needed Zofran As needed pain meds Trend labs Continue IV fluids Appreciate subspecialist input Long-term prognosis-extremely guardedus: Acute Will likely be a good candidate for hospice but await pathology report first Full code but discussions are in place to consider DNR Comment Review of Relevant I have reviewed the following items mariusz (where applicable) has been applied. Medications: Current Medications Medications (Trade) Dose Ordered Sig/Ella Route PRN Reason Start Time Stop Time Status Last Admin Dose Admin Metoprolol Tartrate (Lopressor Vial) 5 mg Q6HRS IVP 10/23/21 13:30 10/24/21 05:33 Justifications for Admission Other Justification ANDER ZIMMERMAN III DO Oct 24, 2021 10:13
[2021-10-24] MEDS: IV DEXTROSE 5%-LACT RINGERS 1,000 ML IV SCH ×2 (12:09→23:56)
--- NOTE | 2021-10-24 16:13 | PDOC ---
PROGRESS NOTES Date of Service DATE: 10/24/21 TIME: 16:11 Subjective Subjective Patient seen and examined Objective Objective Vital Signs Date Time Temp Pulse Resp B/P (MAP) Pulse Ox O2 Delivery O2 Flow Rate FiO2 10/24/21 15:00 97.9 103 18 156/67 (96) 97 Nasal Cannula 2.0 97.9 Intake and Output 10/24/21 07:00 Intake Total 1960 ml Output Total 1250 ml Balance 710 ml Intake Oral 160 ml IV Total 1800 ml Output Urine Total 650 ml Gastric Drainage Total 600 ml # Bowel Movements 1 Physical Exam Abdomen: Other (Mild tenderness) Heart: Regular rate General: No acute distress Lungs: Other (Slightly decreased breath sounds) Assessment Assessment She wasProblems Medical Problems: (1) Acute on chronic renal insufficiency Status: Acute (2) Ascites Status: Acute (3) Chronic diarrhea Status: Acute (4) Chronic vomiting Status: Acute (5) Partial small bowel obstruction Status: Acute 1. Abdominal pain/diarrhea: noted with SBO and peritoneal carcinomatosis with liver mets. Patient is more comfortable today. Awaiting biopsy results. 2. Arrhythmia: PAFIB 2 days ago and converted to SR/ST with digoxin likely precipitated by above. In sinus rhythm. Continue present treatment and monitoring. 3. Chronic diastolic CHF: compensated 4. HTN: Controlled Comment Review of Relevant I have reviewed the following items mariusz (where applicable) has been applied. Labs Laboratory Tests Test 10/23/21 07:35 10/24/21 06:40 Sodium Level 142 mmol/L (136-145) 143 mmol/L (136-145) Potassium Level 4.2 mmol/L (3.5-5.1) 4.1 mmol/L (3.5-5.1) Chloride Level 107 mmol/L (98-107) 106 mmol/L (98-107) Carbon Dioxide Level 26 mmol/L (21-32) 25 mmol/L (21-32) Anion Gap 9 (6-14) 12 (6-14) Blood Urea Nitrogen 31 mg/dL (7-20) 24 mg/dL (7-20) Creatinine 1.4 mg/dL (0.6-1.0) 1.2 mg/dL (0.6-1.0) Estimated GFR (Cockcroft-Gault) 35.9 42.9 Glucose Level 98 mg/dL (70-99) 81 mg/dL (70-99) Calcium Level 8.3 mg/dL (8.5-10.1) 8.2 mg/dL (8.5-10.1) Laboratory Tests Test 10/24/21 06:40 Sodium Level 143 mmol/L (136-145) Potassium Level 4.1 mmol/L (3.5-5.1) Chloride Level 106 mmol/L (98-107) Carbon Dioxide Level 25 mmol/L (21-32) Anion Gap 12 (6-14) Blood Urea Nitrogen 24 mg/dL (7-20) Creatinine 1.2 mg/dL (0.6-1.0) Estimated GFR (Cockcroft-Gault) 42.9 Glucose Level 81 mg/dL (70-99) Calcium Level 8.2 mg/dL (8.5-10.1) Microbiology 10/19/21 Blood Culture - Final, Complete NO GROWTH AFTER 5 DAYS Medications Current Medications Sodium Chloride 1,000 ml @ 1,000 mls/hr 1X ONCE IV Last administered on 10/19/21at 12:48; Start 10/19/21 at 12:00; Stop 10/19/21 at 12:59; Status DC Ondansetron HCl (Zofran) 4 mg 1X ONCE IVP Last administered on 10/19/21at 13:03; Start 10/19/21 at 12:00; Stop 10/19/21 at 12:05; Status DC Fentanyl Citrate (Fentanyl 2ml Vial) 50 mcg 1X ONCE IVP Last administered on 10/19/21at 13:03; Start 10/19/21 at 12:00; Stop 10/19/21 at 12:05; Status DC Piperacillin Sod/ Tazobactam Sod 2.25 gm/Sodium Chloride 50 ml @ 100 mls/hr 1X ONCE IV Last administered on 10/19/21at 14:13; Start 10/19/21 at 13:15; Stop 10/19/21 at 13:44; Status DC Ondansetron HCl (Zofran) 4 mg PRN Q8HRS PRN IVP NAUSEA/VOMITING Last administered on 10/19/21at 22:52; Start 10/19/21 at 16:30; Stop 10/20/21 at 16:29; Status DC Morphine Sulfate (Morphine Sulfate) 2 mg PRN Q2HR PRN IVP PAIN Last administered on 10/20/21at 03:48; Start 10/19/21 at 16:30; Stop 10/20/21 at 1 6:29; Status DC Pantoprazole Sodium (PROTONIX VIAL for IV PUSH) 40 mg BIDAC IVP Last administered on 10/24/21at 05:33; Start 10/19/21 at 17:30 Pharmacy Consult (C.diff Med Screen By Rx) 1 each 1X ONCE MC ; Start 10/20/21 at 04:00; Stop 10/20/21 at 04:01; Status Cancel Sodium Chloride 1,000 ml @ 75 mls/hr [id number] IV Last administered on 10/20/21at 08:52; Start 10/20/21 at 08:45; Stop 10/21/21 at 10:58; Status DC Iohexol (Omnipaque 300 Mg/ml) 400 ml 1X ONCE IJ ; Start 10/20/21 at 09:45; Stop 10/20/21 at 09:46; Status DC Info (CONTRAST GIVEN -- Rx MONITORING) 1 each PRN DAILY PRN MC SEE COMMENTS Last administered on 10/20/21at 14:15; Start 10/20/21 at 09:45; Stop 10/22/21 at 09:44; Status DC Morphine Sulfate (Morphine Sulfate) 2 mg 1X ONCE IM ; Start 10/21/21 at 08:45; Stop 10/21/21 at 08:46; Status DC Sodium Chloride 1,000 ml @ 75 mls/hr [id number] IV Last administered on 10/24/21at 00:21; Start 10/21/21 at 12:00; Stop 10/24/21 at 10:15; Status DC Metoprolol Tartrate (Lopressor Vial) 5 mg PRN Q5MIN PRN IVP TACHYCARDIA Last administered on 10/23/21at 04:07; Start 10/21/21 at 19:45 Dicyclomine HCl (Bentyl) 10 mg PRN Q6HRS PRN IM abd pain; Start 10/21/21 at 19:45 Morphine Sulfate (Morphine Sulfate) 2 mg PRN Q2HR PRN IVP MODERATE TO SEVERE PAIN Last administered on 10/24/21at 02:20; Start 10/21/21 at 20:45 Prochlorperazine Edisylate (Compazine) 10 mg PRN Q6HRS PRN IV NAUSEA/VOMITING Last administered on 10/22/21at 17:01; Start 10/21/21 at 20:45 Lidocaine HCl (Buffered Lidocaine 1%) 3 ml STK-MED ONCE .ROUTE ; Start 10/22/21 at 13:03; Stop 10/22/21 at 13:03; Status DC Gelatin (Gelfoam Size 12-7mm) 1 each STK-MED ONCE .ROUTE ; Start 10/22/21 at 13:03; Stop 10/22/21 at 13:04; Status DC Midazolam HCl (Versed) 2 mg STK-MED ONCE .ROUTE ; Start 10/22/21 at 13:07; Stop 10/22/21 at 13:08; Status DC Fentanyl Citrate (Fentanyl 2ml Vial) 100 mcg STK-MED ONCE .ROUTE ; Start 10/22/21 at 13:07; Stop 10/22/21 at 13:08; Status DC Lidocaine HCl (Buffered Lidocaine 1%) 3 ml 1X ONCE IJ Last administered on 10/22/21at 13:34; Start 10/22/21 at 13:15; Stop 10/22/21 at 13:19; Status DC Midazolam HCl (Versed) 2 mg 1X ONCE IV Last administered on 10/22/21at 13:33; Start 10/22/21 at 13:15; Stop 10/22/21 at 13:19; Status DC Fentanyl Citrate (Fentanyl 2ml Vial) 100 mcg 1X ONCE IV Last administered on 10/22/21at 13:33; Start 10/22/21 at 13:15; Stop 10/22/21 at 13:19; Status DC Gelatin (Gelfoam Size 12-7mm) 1 each 1X ONCE TP Last administered on 10/22/21at 13:38; Start 10/22/21 at 13:15; Stop 10/22/21 at 13:19; Status DC Digoxin (Lanoxin) 500 mcg 1X ONCE IV Last administered on 10/23/21at 05:01; Start 10/23/21 at 05:00; Stop 10/23/21 at 05:01; Status DC Phenol (Chloraseptic) 1 spray PRN Q2HR PRN PO SORE THROAT; Start 10/23/21 at 09:15 Throat Lozenges (Cepacol Sore Throat Lozenge) 1 han PRN Q2HRS PRN PO SORE THROAT; Start 10/23/21 at 09:15 Metoprolol Tartrate (Lopressor Vial) 5 mg Q6HRS IVP Last administered on 10/24/21at 12:09; Start 10/23/21 at 13:30 Dextrose/Lactated Ringer's 1,000 ml @ 75 mls/hr [id number] IV Last administered on 10/24/21at 12:09; Start 10/24/21 at 10:30 Active Scripts Active Ondansetron Odt (Ondansetron) 4 Mg Tab.rapdis 1 Tab PO PRN Q6-8HRS Dicyclomine Hcl 10 Mg Capsule 10 Mg PO PRN QID PRN Reported Stool Softener (Docusate Sodium) 50 Mg Capsule 1 Cap PO DAILY PRN 30 Days Tylenol (Acetaminophen) 325 Mg Tablet 1-2 Tab PO HS Perphen-Amitrip 2 Mg-10 Mg Tab (Perphenazine/Amitriptyline Hcl) 1 Each Tablet 1 Tab PO QHS Methotrexate (Methotrexate Sodium) 2.5 Mg Tablet 10 Tab PO TUESDAY Folic Acid 0.8 Mg Capsule 1 Cap PO DAILY 30 Days Vitamin D3 (Vitamin D) 25 Mcg Tablet 25 Mcg PO DAILY 1,000 UNITS = 25 MCG Amlodipine Besylate 2.5 Mg Tablet 2.5 Mg PO DAILY Vit C-Quyen Hips 500 mg Chew Tb (Ascorbic Acid/Ascorbate Sodium) 500 Mg Tab.chew 500 Mg PO DAILY Probiotic Acidophilus (Lactobacillus Acidophilus) 1 Each Tablet 1 Each PO DAILY Metoprolol Tartrate 50 Mg Tablet 50 Mg PO BID Omeprazole 20 Mg Tablet.dr 20 Mg PO DAILY Multivitamins (Multivitamin) 1 Each Tablet 1 Tab PO DAILY Vitals/I & O Vital Sign - Last 24 Hours 10/23/21 10/23/21 10/23/21 10/23/21 17:22 19:00 20:13 20:45 Temp 98.2 98.2 Pulse 107 102 Resp 24 B/P (MAP) 161/72 161/72 (101) Pulse Ox 95 O2 Delivery Nasal Cannula Room Air Nasal Cannula O2 Flow Rate 2.0 10/23/21 10/24/21 10/24/21 10/24/21 23:44 00:23 02:20 02:50 Temp 97.8 97.8 Pulse 107 107 Resp 21 B/P (MAP) 154/67 (96) 154/67 Pulse Ox 97 O2 Delivery Nasal Cannula Nasal Cannula Nasal Cannula O2 Flow Rate 2.0 2.0 2.0 10/24/21 10/24/21 10/24/21 10/24/21 03:45 05:33 06:10 07:00 Temp 97.0 97.4 97.9 97.0 97.4 97.9 Pulse 96 95 101 103 Resp 17 18 B/P (MAP) 134/62 (86) 134/62 158/76 (103) 140/63 (88) Pulse Ox 97 95 99 O2 Delivery Nasal Cannula Nasal Cannula Nasal Cannula O2 Flow Rate 2.0 2.0 2.0 10/24/21 10/24/21 10/24/21 10/24/21 08:00 11:00 12:09 15:00 Temp 97.6 97.9 97.6 97.9 Pulse 111 111 103 Resp 16 18 B/P (MAP) 144/64 (90) 144/64 156/67 (96) Pulse Ox 93 97 O2 Delivery Room Air Nasal Cannula Nasal Cannula O2 Flow Rate 2.0 2.0 Intake and Output 10/23/21 10/23/21 10/24/21 15:00 23:00 07:00 Intake Total 1000 ml 960 ml Output Total 600 ml 650 ml Balance 400 ml 310 ml Justifications for Admission Other Justification Nutrition Consultation Dietary Evaluation: Recommendations by RD: Dietary education by RD Comments: rec diet per GI Expected Outcomes/Goals: to meet > 75% est nutr needs via po intake vs comfort care Malnutrition Findings: Muscle Mass (Severe): Severe Depletion Body Fat Depletion (Non Severe: Mod to Severe Weight Status: Underweight RANJAN LUO MD Oct 24, 2021 16:13
[2021-10-24] MEDS: PROCHLORPERAZINE 10 MG/2 ML VIAL. IV PRN (17:16)
[2021-10-25 03:44] VITALS: BP 160/69
[2021-10-25 04:46] LABS: CALCIUM 8.4 mg/dL (8.5-10.1); CREATININE 1.3 mg/dL (0.6-1.0); GFR 39.1
[2021-10-25] MEDS: PANTOPRAZOLE IV PUSH 40 MG VIAL. IVP SCH ×2 (06:10→16:31)
[2021-10-25] MEDS: METOPROLOL IV PUSH 5 MG/5 ML VIAL. IVP SCH ×3 (06:11→19:30)
[2021-10-25 07:30] VITALS: BP 145/66
[2021-10-25 11:00] VITALS: BP 152/65
--- NOTE | 2021-10-25 12:58 | PDOC ---
[facility] PROGRESS NOTE Date of Service DOS: DATE: 10/25/21 TIME: 12:55 Chief Complaint Chief Complaint SBO Status post liver biopsy Peritoneal seeding suspect cancer Nausea vomiting Anxiety, anemia, diverticulitis, hypertension, renal failure, UTI, mitral valve prolapse, cataracts, colostomy, hysterectomy, previous tobacco abuse. History of Present Illness History of Present Illness 10/26/2019 Patient seen and examined She is alert and oriented Still has NG to suction Still awaiting pathology report Chart reviewed Discussed with RN 10/24/2021 Patient seen and examined She is resting with no apparent distress Discussed with her RN Chart reviewed Pathology results still pending 10/23/2021 Patient seen and examined She is on D5 half-normal Chart reviewed Discussed with RN Discussed with case management I spoke with Dr. Banegas he is working on getting the pathology report done soon 10/22/2021 Patient seen and examined Discussed with RN Chart reviewed Discussed with case management I called oncology The plan is to get a liver biopsy today We suspect the elevated CA 25 level may be due to peritoneal cancer versus gastric cancer versus ovarian cancer (she has had her ovaries removed about 4 years ago however oncology explained she could still have ovarian CA) 10/21/2021 Patient seen and examined She still feels better with her NG in place CA-125 level is elevated to 582 Discussed with case management Discussed with RN 10/20/2021 Patient seen and examined We had to place an NG She states she feels better with the NG to suction Discussed with RN Chart reviewed Vitals/I&O Vitals/I&O: Vital Signs Date Time Temp Pulse Resp B/P (MAP) Pulse Ox O2 Delivery O2 Flow Rate FiO2 10/25/21 12:52 110 152/65 10/25/21 11:00 97.9 18 95 Nasal Cannula 2.0 97.9 I & O 10/24/21 10/24/21 10/25/21 15:00 23:00 07:00 Intake Total 550 ml 175 ml 811.29 ml Output Total 300 ml 450 ml 300 ml Balance 250 ml -275 ml 511.29 ml Physical Exam General: No acute distress Heart: Regular rate Lungs: Clear Abdomen: Other (Mild tenderness) Extremities: No cyanosis, No edema Skin: No breakdown, No significant lesion Labs Labs: Laboratory Tests Test 10/25/21 04:00 Sodium Level 142 mmol/L (136-145) Potassium Level 4.0 mmol/L (3.5-5.1) Chloride Level 106 mmol/L (98-107) Carbon Dioxide Level 30 mmol/L (21-32) Anion Gap 6 (6-14) Blood Urea Nitrogen 19 mg/dL (7-20) Creatinine 1.3 mg/dL (0.6-1.0) Estimated GFR (Cockcroft-Gault) 39.1 Glucose Level 156 mg/dL (70-99) Calcium Level 8.4 mg/dL (8.5-10.1) Assessment and Plan Assessmemt and Plan Problems Medical Problems: (1) Acute on chronic renal insufficiency Status: Acute (2) Ascites Status: Acute (3) Chronic diarrhea Status: Acute (4) Chronic vomiting Status: Acute (5) Partial small bowel obstruction Status: Acute Status post liver biopsy Peritoneal seeding suspect cancer Elevated CA 19-9, CA-125, CEA Nausea vomiting Anxiety, anemia, diverticulitis, hypertension, renal failure, UTI, mitral valve prolapse, cataracts, colostomy, hysterectomy, previous tobacco abuse. Plan Still awaiting liver biopsy results Continue NG suction Discussed with pharmacy we will start D5 LR (we are out of Clinimix for now) As needed Zofran As needed pain meds Trend labs Continue IV fluids Appreciate subspecialist input Long-term prognosis-extremely guardedus: Acute Will likely be a good candidate for hospice but await pathology report first Full code but discussions are in place to consider DNR Comment Review of Relevant I have reviewed the following items mariusz (where applicable) has been applied. Justifications for Admission Other Justification ANDER ZIMMERMAN III DO Oct 25, 2021 12:58
--- NOTE | 2021-10-25 13:05 | PDOC ---
PROGRESS NOTES Date of Service DATE: 10/25/21 TIME: 13:03 Subjective Subjective Patient seen and examined She is largely unchanged from yesterday and continues to have an NG tube in place. Objective Objective Vital Signs Date Time Temp Pulse Resp B/P (MAP) Pulse Ox O2 Delivery O2 Flow Rate FiO2 10/25/21 12:52 110 152/65 10/25/21 11:00 97.9 18 95 Nasal Cannula 2.0 97.9 Intake and Output 10/25/21 07:00 Intake Total 1536.29 ml Output Total 1050 ml Balance 486.29 ml Intake Oral 275 ml IV Total 1261.29 ml Output Urine Total 650 ml Gastric Drainage Total 400 ml Physical Exam Abdomen: Other (Decreased bowel sounds) Heart: Regular rate General: mild distress Lungs: Other (Slightly decreased breath sounds) Assessment Assessment Problems Medical Problems: (1) Acute on chronic renal insufficiency Status: Acute (2) Ascites Status: Acute (3) Chronic diarrhea Status: Acute (4) Chronic vomiting Status: Acute (5) Partial small bowel obstruction Status: Acute 1. Abdominal pain/diarrhea: noted with SBO and peritoneal carcinomatosis with liver mets. NG tube remains in place. Patient is largely unchanged today. Awaiting biopsy reports. 2. Arrhythmia: PAFIB 3 days ago and converted to SR/ST with digoxin likely precipitated by above. Remains in a sinus rhythm. We will continue present treatments and monitoring. 3. Chronic diastolic CHF: compensated 4. HTN: Continue present treatment at this time. Comment Review of Relevant I have reviewed the following items mariusz (where applicable) has been applied. Labs Laboratory Tests Test 10/24/21 06:40 10/25/21 04:00 Sodium Level 143 mmol/L (136-145) 142 mmol/L (136-145) Potassium Level 4.1 mmol/L (3.5-5.1) 4.0 mmol/L (3.5-5.1) Chloride Level 106 mmol/L (98-107) 106 mmol/L (98-107) Carbon Dioxide Level 25 mmol/L (21-32) 30 mmol/L (21-32) Anion Gap 12 (6-14) 6 (6-14) Blood Urea Nitrogen 24 mg/dL (7-20) 19 mg/dL (7-20) Creatinine 1.2 mg/dL (0.6-1.0) 1.3 mg/dL (0.6-1.0) Estimated GFR (Cockcroft-Gault) 42.9 39.1 Glucose Level 81 mg/dL (70-99) 156 mg/dL (70-99) Calcium Level 8.2 mg/dL (8.5-10.1) 8.4 mg/dL (8.5-10.1) Laboratory Tests Test 10/25/21 04:00 Sodium Level 142 mmol/L (136-145) Potassium Level 4.0 mmol/L (3.5-5.1) Chloride Level 106 mmol/L (98-107) Carbon Dioxide Level 30 mmol/L (21-32) Anion Gap 6 (6-14) Blood Urea Nitrogen 19 mg/dL (7-20) Creatinine 1.3 mg/dL (0.6-1.0) Estimated GFR (Cockcroft-Gault) 39.1 Glucose Level 156 mg/dL (70-99) Calcium Level 8.4 mg/dL (8.5-10.1) Microbiology 10/19/21 Blood Culture - Final, Complete NO GROWTH AFTER 5 DAYS Medications Current Medications Sodium Chloride 1,000 ml @ 1,000 mls/hr 1X ONCE IV Last administered on 10/19/21at 12:48; Start 10/19/21 at 12:00; Stop 10/19/21 at 12:59; Status DC Ondansetron HCl (Zofran) 4 mg 1X ONCE IVP Last administered on 10/19/21at 13:03; Start 10/19/21 at 12:00; Stop 10/19/21 at 12:05; Status DC Fentanyl Citrate (Fentanyl 2ml Vial) 50 mcg 1X ONCE IVP Last administered on 10/19/21at 13:03; Start 10/19/21 at 12:00; Stop 10/19/21 at 12:05; Status DC Piperacillin Sod/ Tazobactam Sod 2.25 gm/Sodium Chloride 50 ml @ 100 mls/hr 1X ONCE IV Last administered on 10/19/21at 14:13; Start 10/19/21 at 13:15; Stop 10/19/21 at 13:44; Status DC Ondansetron HCl (Zofran) 4 mg PRN Q8HRS PRN IVP NAUSEA/VOMITING Last administered on 10/19/21at 22:52; Start 10/19/21 at 16:30; Stop 10/20/21 at 16:29; Status DC Morphine Sulfate (Morphine Sulfate) 2 mg PRN Q2HR PRN IVP PAIN Last administered on 10/20/21at 03:48; Start 10/19/21 at 16:30; Stop 10/20/21 at 16:29; Status DC Pantoprazole Sodium (PROTONIX VIAL for IV PUSH) 40 mg BIDAC IVP Last administered on 10/25/21at 06:10; Start 10/19/21 at 17:30 Pharmacy Consult (C.diff Med Screen By Rx) 1 each 1X ONCE MC ; Start 10/20/21 at 04:00; Stop 10/20/21 at 04:01; Status Cancel Sodium Chloride 1,000 ml @ 75 mls/hr [id number] IV Last administered on 10/20/21at 08:52; Start 10/20/21 at 08:45; Stop 10/21/21 at 10:58; Status DC Iohexol (Omnipaque 300 Mg/ml) 400 ml 1X ONCE IJ ; Start 10/20/21 at 09:45; Stop 10/20/21 at 09:46; Status DC Info (CONTRAST GIVEN -- Rx MONITORING) 1 each PRN DAILY PRN MC SEE COMMENTS Las t administered on 10/20/21at 14:15; Start 10/20/21 at 09:45; Stop 10/22/21 at 09:44; Status DC Morphine Sulfate (Morphine Sulfate) 2 mg 1X ONCE IM ; Start 10/21/21 at 08:45; Stop 10/21/21 at 08:46; Status DC Sodium Chloride 1,000 ml @ 75 mls/hr [id number] IV Last administered on 10/24/21at 00:21; Start 10/21/21 at 12:00; Stop 10/24/21 at 10:15; Status DC Metoprolol Tartrate (Lopressor Vial) 5 mg PRN Q5MIN PRN IVP TACHYCARDIA Last administered on 10/23/21at 04:07; Start 10/21/21 at 19:45 Dicyclomine HCl (Bentyl) 10 mg PRN Q6HRS PRN IM abd pain; Start 10/21/21 at 19:45 Morphine Sulfate (Morphine Sulfate) 2 mg PRN Q2HR PRN IVP MODERATE TO SEVERE PAIN Last administered on 10/24/21at 22:19; Start 10/21/21 at 20:45 Prochlorperazine Edisylate (Compazine) 10 mg PRN Q6HRS PRN IV NAUSEA/VOMITING Last administered on 10/24/21at 17:16; Start 10/21/21 at 20:45 Lidocaine HCl (Buffered Lidocaine 1%) 3 ml STK-MED ONCE .ROUTE ; Start 10/22/21 at 13:03; Stop 10/22/21 at 13:03; Status DC Gelatin (Gelfoam Size 12-7mm) 1 each STK-MED ONCE .ROUTE ; Start 10/22/21 at 13:03; Stop 10/22/21 at 13:04; Status DC Midazolam HCl (Versed) 2 mg STK-MED ONCE .ROUTE ; Start 10/22/21 at 13:07; Stop 10/22/21 at 13:08; Status DC Fentanyl Citrate (Fentanyl 2ml Vial) 100 mcg STK-MED ONCE .ROUTE ; Start 10/22/21 at 13:07; Stop 10/22/21 at 13:08; Status DC Lidocaine HCl (Buffered Lidocaine 1%) 3 ml 1X ONCE IJ Last administered on 10/22/21at 13:34; Start 10/22/21 at 13:15; Stop 10/22/21 at 13:19; Status DC Midazolam HCl (Versed) 2 mg 1X ONCE IV Last administered on 10/22/21at 13:33; Start 10/22/21 at 13:15; Stop 10/22/21 at 13:19; Status DC Fentanyl Citrate (Fentanyl 2ml Vial) 100 mcg 1X ONCE IV Last administered on 10/22/21at 13:33; Start 10/22/21 at 13:15; Stop 10/22/21 at 13:19; Status DC Gelatin (Gelfoam Size 12-7mm) 1 each 1X ONCE TP Last administered on 10/22/21at 13:38; Start 10/22/21 at 13:15; Stop 10/22/21 at 13:19; Status DC Digoxin (Lanoxin) 500 mcg 1X ONCE IV Last administered on 10/23/21at 05:01; Start 10/23/21 at 05:00; Stop 10/23/21 at 05:01; Status DC Phenol (Chloraseptic) 1 spray PRN Q2HR PRN PO SORE THROAT; Start 10/23/21 at 09:15 Throat Lozenges (Cepacol Sore Throat Lozenge) 1 han PRN Q2HRS PRN PO SORE THROAT; Start 10/23/21 at 09:15 Metoprolol Tartrate (Lopressor Vial) 5 mg Q6HRS IVP Last administered on 10/25/21at 12:52; Start 10/23/21 at 13:30 Dextrose/Lactated Ringer's 1,000 ml @ 75 mls/hr [id number] IV Last administered on 10/24/21at 23:56; Start 10/24/21 at 10:30 Active Scripts Active Ondansetron Odt (Ondansetron) 4 Mg Tab.rapdis 1 Tab PO PRN Q6-8HRS Dicyclomine Hcl 10 Mg Capsule 10 Mg PO PRN QID PRN Reported Stool Softener (Docusate Sodium) 50 Mg Capsule 1 Cap PO DAILY PRN 30 Days Tylenol (Acetaminophen) 325 Mg Tablet 1-2 Tab PO HS Perphen-Amitrip 2 Mg-10 Mg Tab (Perphenazine/Amitriptyline Hcl) 1 Each Tablet 1 Tab PO QHS Methotrexate (Methotrexate Sodium) 2.5 Mg Tablet 10 Tab PO TUESDAY Folic Acid 0.8 Mg Capsule 1 Cap PO DAILY 30 Days Vitamin D3 (Vitamin D) 25 Mcg Tablet 25 Mcg PO DAILY 1,000 UNITS = 25 MCG Amlodipine Besylate 2.5 Mg Tablet 2.5 Mg PO DAILY Vit C-Quyen Hips 500 mg Chew Tb (Ascorbic Acid/Ascorbate Sodium) 500 Mg Tab.chew 500 Mg PO DAILY Probiotic Acidophilus (Lactobacillus Acidophilus) 1 Each Tablet 1 Each PO DAILY Metoprolol Tartrate 50 Mg Tablet 50 Mg PO BID Omeprazole 20 Mg Tablet.dr 20 Mg PO DAILY Multivitamins (Multivitamin) 1 Each Tablet 1 Tab PO DAILY Vitals/I & O Vital Sign - Last 24 Hours 10/24/21 10/24/21 10/24/21 10/24/21 15:00 17:21 19:00 20:15 Temp 97.9 98.9 97.9 98.9 Pulse 103 103 98 Resp 18 22 B/P (MAP) 156/67 (96) 156/67 146/65 (92) Pulse Ox 97 90 O2 Delivery Nasal Cannula Nasal Cannula Room Air O2 Flow Rate 2.0 2.0 10/24/21 10/24/21 10/24/21 10/24/21 22:19 22:49 23:35 23:55 Temp 98.1 98.1 Pulse 109 109 Resp 20 B/P (MAP) 148/66 (93) 148/66 Pulse Ox 96 O2 Delivery Nasal Cannula Nasal Cannula Nasal Cannula O2 Flow Rate 2.0 2.0 2.0 10/25/21 10/25/21 10/25/21 10/25/21 03:44 06:11 07:30 08:00 Temp 98.0 97.7 98.0 97.7 Pulse 100 110 97 Resp 22 18 B/P (MAP) 160/69 (99) 160/69 145/66 (92) Pulse Ox 93 92 O2 Delivery Nasal Cannula Nasal Cannula Room Air O2 Flow Rate 2.0 2.0 10/25/21 10/25/21 11:00 12:52 Temp 97.9 97.9 Pulse 110 110 Resp 18 B/P (MAP) 152/65 (94) 152/65 Pulse Ox 95 O2 Delivery Nasal Cannula O2 Flow Rate 2.0 Intake and Output 10/24/21 10/24/21 10/25/21 15:00 23:00 07:00 Intake Total 550 ml 175 ml 811.29 ml Output Total 300 ml 450 ml 300 ml Balance 250 ml -275 ml 511.29 ml Justifications for Admission Other Justification Nutrition Consultation Dietary Evaluation: Recommendations by RD: Dietary education by RD Comments: rec diet per GI Expected Outcomes/Goals: to meet > 75% est nutr needs via po intake vs comfort care Malnutrition Findings: Muscle Mass (Severe): Severe Depletion Body Fat Depletion (Non Severe: Mod to Severe Weight Status: Underweight RANJAN LUO MD Oct 25, 2021 13:05
[2021-10-25 15:00] VITALS: BP 141/63
[2021-10-25] MEDS: PROCHLORPERAZINE 10 MG/2 ML VIAL. IV PRN (16:30)
[2021-10-25] MEDS: IV DEXTROSE 5%-LACT RINGERS 1,000 ML IV SCH (16:53)
[2021-10-25 19:25] VITALS: BP 162/70
[2021-10-25] MEDS: MORPHINE SULFATE 2 MG/ML INJ. IVP PRN (22:38)
[2021-10-25 22:41] VITALS: BP 156/67
[2021-10-26] MEDS: METOPROLOL IV PUSH 5 MG/5 ML VIAL. IVP SCH ×4 (00:35→17:44)
[2021-10-26 03:12] VITALS: BP 138/65
[2021-10-26] MEDS: IV DEXTROSE 5%-LACT RINGERS 1,000 ML IV SCH ×3 (06:17→17:16)
[2021-10-26 07:00] VITALS: BP 141/64
[2021-10-26] MEDS: PANTOPRAZOLE IV PUSH 40 MG VIAL. IVP SCH ×2 (07:30→15:57)
[2021-10-26 07:46] LABS: CREATININE 1.3 mg/dL (0.6-1.0); GFR 39.1; POTASSIUM 4.3 mmol/L (3.5-5.1)
[2021-10-26 09:14] LABS: ALBUMIN 1.6 g/dL (3.4-5.0); PHOSPHORUS 3.4 mg/dL (2.6-4.7)
--- NOTE | 2021-10-26 09:17 | PDOC ---
CARD[facility] Progress Notes Date and Time Date of Service 10/26/21 Time of Evaluation 0915 Subjective Subjective: No Chest Pain, No shortness of breath, No Dizziness Vitals Vitals Vital Signs Date Time Temp Pulse Resp B/P (MAP) Pulse Ox O2 Delivery O2 Flow Rate FiO2 10/26/21 07:00 97.6 96 18 141/64 (89) 98 Nasal Cannula 2.0 97.6 Weight Weight [ ] Input and Output Intake and Output Intake and Output 10/26/21 07:00 Intake Total 0 ml Output Total 950 ml Balance -950 ml Intake Oral 0 ml Output Urine Total 550 ml Drainage Total 400 ml Laboratory Labs Laboratory Tests Test 10/26/21 07:05 Sodium Level 144 mmol/L (136-145) Potassium Level 4.3 mmol/L (3.5-5.1) Chloride Level 108 mmol/L (98-107) Carbon Dioxide Level 31 mmol/L (21-32) Anion Gap 5 (6-14) Blood Urea Nitrogen 18 mg/dL (7-20) Creatinine 1.3 mg/dL (0.6-1.0) Estimated GFR (Cockcroft-Gault) 39.1 Glucose Level 143 mg/dL (70-99) Calcium Level 8.0 mg/dL (8.5-10.1) Phosphorus Level 3.4 mg/dL (2.6-4.7) Magnesium Level 2.0 mg/dL (1.8-2.4) Albumin 1.6 g/dL (3.4-5.0) Microbiology Micro Microbiology 10/19/21 Blood Culture - Final, Complete NO GROWTH AFTER 5 DAYS Review of Systems Constitutional: yes: weakness, alert, oriented Ears/Nose/Throat: Yes: no symptom reported Eyes: Yes: no symptom reported Pulmonary: Yes no symptom reported Cardiovascular: Yes no symptom reported Gastrointestional: Yes: nausea, abdominal pain Genitourinary: Yes: no symptom reported Musculoskeletal: Yes: no symptom reported Skin: Yes no symptom reported Psychiatric/Neurological: Yes: no symptom reported Endocrine: Yes: no symptom reported Physical Exam HEENT: Neck Supple W Full Motion, Other (NGT) Chest: Symmetric LUNGS: Clear to Auscultation Heart: RRR Abdomen: Other (tender to palpation ) Extremities: No Edema Neurology: alert, oriented, follow commands Assessment Assessment 1. Abdominal pain/diarrhea: suspect metastatic disease. s/p liver biopsy. path reportedly benign- awaiting final report. NG tube remains in place. follow GS recs 2. Arrhythmia: PAFIB 3 days ago and converted to SR/ST with digoxin likely precipitated by above. Remains in a sinus rhythm. Continue metoprolol for rate control 3. Chronic diastolic CHF: compensated 4. HTN: Controlled Justicifation of Admission Dx: Justifications for Admission: Justification of Admission Dx: Yes SONYA GARVIN APRN Oct 26, 2021 09:17
--- NOTE | 2021-10-26 09:59 | PDOC ---
[facility] PROGRESS NOTE Date of Service DOS: DATE: 10/26/21 TIME: 09:58 Chief Complaint Chief Complaint SBO Status post liver biopsy Peritoneal seeding suspect cancer Nausea vomiting Anxiety, anemia, diverticulitis, hypertension, renal failure, UTI, mitral valve prolapse, cataracts, colostomy, hysterectomy, previous tobacco abuse. History of Present Illness History of Present Illness 10/27/2019 Patient seen and examined I called pathology I called oncology The liver biopsy is benign mainly just showing cyst I called general surgery nurse practitioner Miriam She is going to speak with Dr. Richardson and see if we could consider doing a exploratory laparotomy I ordered a PICC line I called pharmacy and ordered TPN 10/26/2019 Patient seen and examined She is alert and oriented Still has NG to suction Still awaiting pathology report Chart reviewed Discussed with RN 10/24/2021 Patient seen and examined She is resting with no apparent distress Discussed with her RN Chart reviewed Pathology results still pending 10/23/2021 Patient seen and examined She is on D5 half-normal Chart reviewed Discussed with RN Discussed with case management I spoke with Dr. Banegas he is working on getting the pathology report done soon 10/22/2021 Patient seen and examined Discussed with RN Chart reviewed Discussed with case management I called oncology The plan is to get a liver biopsy today We suspect the elevated CA 25 level may be due to peritoneal cancer versus gastric cancer versus ovarian cancer (she has had her ovaries removed about 4 years ago however oncology explained she could still have ovarian CA) 10/21/2021 Patient seen and examined She still feels better with her NG in place CA-125 level is elevated to 582 Discussed with case management Discussed with RN 10/20/2021 Patient seen and examined We had to place an NG She states she feels better with the NG to suction Discussed with RN Chart reviewed Vitals/I&O Vitals/I&O: Vital Signs Date Time Temp Pulse Resp B/P (MAP) Pulse Ox O2 Delivery O2 Flow Rate FiO2 10/26/21 07:00 97.6 96 18 141/64 (89) 98 Nasal Cannula 2.0 97.6 I & O 10/25/21 10/25/21 10/26/21 15:00 23:00 07:00 Intake Total 0 ml 0 ml Output Total 600 ml 350 ml Balance 0 ml -600 ml -350 ml Physical Exam General: mild distress Heart: Regular rate Lungs: Clear Abdomen: Other (Decreased bowel sounds) Extremities: No cyanosis, No edema Skin: No breakdown, No significant lesion Labs Labs: Laboratory Tests Test 10/26/21 07:05 Sodium Level 144 mmol/L (136-145) Potassium Level 4.3 mmol/L (3.5-5.1) Chloride Level 108 mmol/L (98-107) Carbon Dioxide Level 31 mmol/L (21-32) Anion Gap 5 (6-14) Blood Urea Nitrogen 18 mg/dL (7-20) Creatinine 1.3 mg/dL (0.6-1.0) Estimated GFR (Cockcroft-Gault) 39.1 Glucose Level 143 mg/dL (70-99) Calcium Level 8.0 mg/dL (8.5-10.1) Phosphorus Level 3.4 mg/dL (2.6-4.7) Magnesium Level 2.0 mg/dL (1.8-2.4) Albumin 1.6 g/dL (3.4-5.0) Assessment and Plan Assessmemt and Plan Problems Medical Problems: (1) Acute on chronic renal insufficiency Status: Acute (2) Ascites Status: Acute (3) Chronic diarrhea Status: Acute (4) Chronic vomiting Status: Acute (5) Partial small bowel obstruction Status: Acute Status post liver biopsy Peritoneal seeding suspect cancer Elevated CA 19-9, CA-125, CEA Nausea vomiting Anxiety, anemia, diverticulitis, hypertension, renal failure, UTI, mitral valve prolapse, cataracts, colostomy, hysterectomy, previous tobacco abuse. Plan Continue NG suction I ordered a PICC line I called the pharmacy and ordered TPN Discussed with nurse practitioner for general surgery were hoping they might consider doing a exploratory laparotomy As needed Zofran As needed pain meds Trend labs Continue IV fluids Appreciate subspecialist input Prognosis guarded but appears to be improving? Comment Review of Relevant I have reviewed the following items mariusz (where applicable) has been applied. Justifications for Admission Other Justification ANDER ZIMMERMAN III DO Oct 26, 2021 09:59
[2021-10-26 10:20] VITALS: BP 138/83
--- NOTE | 2021-10-26 10:38 | PDOC ---
SURGICAL PROGRESS NOTE DATE: 10/26/21 TIME: 10:36 Subjective no bowel function d/w IPC--reports pending path is benign Vital Signs Vital Signs Date Time Temp Pulse Resp B/P (MAP) Pulse Ox O2 Delivery O2 Flow Rate FiO2 10/26/21 10:20 97.6 113 20 138/83 (101) 97 Nasal Cannula 2.0 97.6 I&O Intake and Output 10/26/21 07:00 Intake Total 0 ml Output Total 950 ml Balance -950 ml Intake Oral 0 ml Output Urine Total 550 ml Drainage Total 400 ml General: Alert, Cooperative HEENT: Other (ng in place) Abdomen: Other (ttp, distended) Labs Laboratory Tests Test 10/25/21 04:00 10/26/21 07:05 Sodium Level 142 mmol/L (136-145) 144 mmol/L (136-145) Potassium Level 4.0 mmol/L (3.5-5.1) 4.3 mmol/L (3.5-5.1) Chloride Level 106 mmol/L (98-107) 108 mmol/L (98-107) Carbon Dioxide Level 30 mmol/L (21-32) 31 mmol/L (21-32) Anion Gap 6 (6-14) 5 (6-14) Blood Urea Nitrogen 19 mg/dL (7-20) 18 mg/dL (7-20) Creatinine 1.3 mg/dL (0.6-1.0) 1.3 mg/dL (0.6-1.0) Estimated GFR (Cockcroft-Gault) 39.1 39.1 Glucose Level 156 mg/dL (70-99) 143 mg/dL (70-99) Calcium Level 8.4 mg/dL (8.5-10.1) 8.0 mg/dL (8.5-10.1) Phosphorus Level 3.4 mg/dL (2.6-4.7) Magnesium Level 2.0 mg/dL (1.8-2.4) Albumin 1.6 g/dL (3.4-5.0) Laboratory Tests Test 10/26/21 07:05 Sodium Level 144 mmol/L (136-145) Potassium Level 4.3 mmol/L (3.5-5.1) Chloride Level 108 mmol/L (98-107) Carbon Dioxide Level 31 mmol/L (21-32) Anion Gap 5 (6-14) Blood Urea Nitrogen 18 mg/dL (7-20) Creatinine 1.3 mg/dL (0.6-1.0) Estimated GFR (Cockcroft-Gault) 39.1 Glucose Level 143 mg/dL (70-99) Calcium Level 8.0 mg/dL (8.5-10.1) Phosphorus Level 3.4 mg/dL (2.6-4.7) Magnesium Level 2.0 mg/dL (1.8-2.4) Albumin 1.6 g/dL (3.4-5.0) Problem List Problems Medical Problems: (1) Acute on chronic renal insufficiency Status: Acute (2) Ascites Status: Acute (3) Chronic diarrhea Status: Acute (4) Chronic vomiting Status: Acute (5) Partial small bowel obstruction Status: Acute Assessment/Plan final path is pending, did d/w IPC, appears from discussion with pathology benign ? hernia causing obstruction will discuss with Dr Sage, Dr De Los Santos returns tomorrow, will have him determine if a surgical candidate Justicifation of Admission Dx: Justifications for Admission: Justification of Admission Dx: Yes MINGO CERVANTES BOTTOMING MACHINE OPERATOR Oct 26, 2021 10:38
--- NOTE | 2021-10-26 11:16 | PDOC ---
Date of Service: DATE: 10/26/21 TIME: 11:11 Subjective: Subjective: Ongoing abd pain. Stooled Tuesday, none since and no flatus. Says "I got the best news possible - it's not cancer." Objective: Objective: Reviewed other notes - discussion that prelim path report shows no malignancy. ~400cc charted out from NGT. Vital Signs: Vital Signs Date Time Temp Pulse Resp B/P (MAP) Pulse Ox O2 Delivery O2 Flow Rate FiO2 10/26/21 10:20 97.6 113 20 138/83 (101) 97 Nasal Cannula 2.0 97.6 Labs: Laboratory Tests Test 10/26/21 07:05 Sodium Level 144 mmol/L Potassium Level 4.3 mmol/L Chloride Level 108 mmol/L Carbon Dioxide Level 31 mmol/L Anion Gap 5 Blood Urea Nitrogen 18 mg/dL Creatinine 1.3 mg/dL Estimated GFR (Cockcroft-Gault) 39.1 Glucose Level 143 mg/dL Calcium Level 8.0 mg/dL Phosphorus Level 3.4 mg/dL Magnesium Level 2.0 mg/dL Albumin 1.6 g/dL PE: GEN: NAD LUNGS: clear anteriorly, NC 2L HEART: tachycardic ABD: uncomfortable to light palpation - worse to left, quiet, NG bilious NEURO/PSYCH: A & O 3 A/P: Suspected metastatic disease s/p liver biopsy 10/22/21 - prelim report apparently benign SBO - on CT last week: "multiple dilated and fluid distended small bowel loops identified in the abdomen in the proximal and midportion with collapsed small bowel loops distally with a small knuckle of bowel abutting the anterior abdominal wall hernia on series 5 image 37 likely site of obstruction . Differential includes adhesion or incarcerated hernia " JESÚS/ACD Tachycardia, h/o A Fib Hypoalbuminemia -- Awaiting final path report though discussion of benign findings, follow surgery recs, may need to consider TPN. Justicifation of Admission Dx: Justifications for Admission: Justification of Admission Dx: Yes IRASEMA MCCARTY Oct 26, 2021 11:16
[2021-10-26] MEDS: PROCHLORPERAZINE 10 MG/2 ML VIAL. IV PRN ×2 (11:20→17:07)
[2021-10-26] MEDS: TPN PER PHARMACY MC PRN ×2 (13:52→13:56)
--- NOTE | 2021-10-26 14:06 | NUR ---
SS following up with discharge planning. SS reviewed pt chart and discussed with pt RN. Pt is currently requiring oxygen at two liters nasal canula. Cardiology, GI, and Surgery following. Pt is skilled rehabilitation resident from [facility], ; fax [phone]. Dr. De Los Santos to assess pt for possible surgery tomorrow. Pt on TPN and IV Metoprolol. PT/OT when medically ready to participate. SS will continue to follow for discharge planning.
[2021-10-26] MEDS ORDERED: IV DEXTROSE 5% 250 ML BAG. IV PRN (14:30)
[2021-10-26] MEDS ORDERED: DEXTROSE 50% 25 GM / 50ML DISP.SYRIN. IV PRN (14:30)
[2021-10-26 15:00] VITALS: BP 118/56
--- NOTE | 2021-10-26 15:25 | NUR ---
Allergies and reactions : adhesive INR 1.2 BUN 18 Cr 1.3 Platelets 594 Blood culture done Y 10/19 blood culture results No growth Order Verified y Consent signed y Previous PICC placement y Past Medical/Surgical history and current diagnosis reviewed y Patient Medical /Surgical History Related to PICC line placement Infectious Disease consult Past central line or venous access device placement Renal consult Septicemia/Bacteremia Special considerations for PICC line placement Infections PICC placement indication Caustic medication class drug usage, Multiple/ Frequent blood draws, Total Parenteral Nutrition (TPN) Alicia SCHNEIDER Addendum: 10/26/21 at 1530 by SRAVANTHI BUSH RN Amended: Links added.
--- NOTE | 2021-10-26 15:28 | NUR ---
Procedure: Following complete explanation of the PICC procedure including the indications, risks, and potential complications, informed consent was obtained. The possibility for infection was discussed along with signs, symptoms, and prevention. All the questions were answered. Written and verbal patient education was provided. Hand hygiene performed. Standardized central line checklist was utilized. The patient was placed in the supine position, the arm was prepped with chlorhexidine and patient draped with maximum sterile barrier. 1 mL 1% lidocaine was infiltrated into the skin to provide local anesthesia. A thorough assessment of right upper extremity completed. Using real-time ultrasound guidance and standardized micro puncture set, the basillic vein was punctured and a peel away sheath was placed using the modified Seldinger technique. A tip location device was used to ensure adequate catheter placement. The catheter was secured using a securement device and an antimicrobial patch was applied directly on the insertion site followed by a transparent dressing. All ports withdraw blood and flush without resistance. Patient tolerated the procedure without apparent complication(s). Double Lumen Power PICC placement successful and uncomplicated. Placement verified by EKG tip confirmation system and/or chest x-ray. Tip located in the CAJ Complications: NONE Addendum: 10/26/21 at 1530 by SRAVANTHI BUSH RN Amended: Links added.
--- NOTE | 2021-10-26 15:53 | RAD ---
XR ABDOMEN 1V History: Reason: NGT placement / Spl. Instructions: / History: Technique: AP view the chest and AP view the abdomen. Comparison: October 20, 2021 Findings: Enteric tube not identified. Increased small bilateral pleural effusions with adjacent opacities, rig ht greater than left. Right PICC with tip projecting over the cavoatrial junction. Prior granulous di sease within the chest. Enteric contrast noted within the abdomen. Multilevel lumbar spondylosis. Impression: 1. Enteric tube not identified. Recommend clinical correlation. 2. Increased small bilateral pleural effusions with adjacent opacities, right greater than left. Electronically signed by: Ervin Delgadillo DO (10/26/2021 3:51 PM) [id number]
[2021-10-26] MEDS: INSULIN LISPRO 300 UNITS/3 ML VIAL. SQ SCH (17:06)
[2021-10-26 19:32] VITALS: BP 124/56
[2021-10-26] MEDS: MORPHINE SULFATE 2 MG/ML INJ. IVP PRN (20:55)
[2021-10-26] MEDS ORDERED: TOTAL PARENTERAL NUTRITION IV SCH (22:00)
[2021-10-26] MEDS ORDERED: AMINO ACID IV SCH (22:00)
[2021-10-26] MEDS ORDERED: DEXTROSE 70% IV SCH (22:00)
[2021-10-26] MEDS ORDERED: [UNRECOGNIZED DRUG - OTHER] IV SCH (22:00)
[2021-10-26 23:01] VITALS: BP 151/65
[2021-10-27] VITALS (11 sets, daily range): BP systolic 105–153; BP diastolic 43–67
[2021-10-27] MEDS: METOPROLOL IV PUSH 5 MG/5 ML VIAL. IVP SCH ×5 (00:22→23:54)
[2021-10-27] MEDS: INSULIN LISPRO 300 UNITS/3 ML VIAL. SQ SCH ×5 (06:00→23:54)
[2021-10-27] MEDS: PANTOPRAZOLE IV PUSH 40 MG VIAL. IVP SCH ×2 (06:03→15:10)
[2021-10-27 06:22] LABS: CALCIUM 7.8 mg/dL (8.5-10.1); CREATININE 1.3 mg/dL (0.6-1.0); GFR 39.1; PHOSPHORUS 3.4 mg/dL (2.6-4.7); POTASSIUM 4.3 mmol/L (3.5-5.1)
--- NOTE | 2021-10-27 08:28 | PDOC ---
MINGO CERVANTES CODIFIER 10/27/21 0828: SURGICAL PROGRESS NOTE DATE: 10/27/21 TIME: 08:24 Subjective more SOA today ongoing abdominal pain no bowel function Vital Signs Vital Signs Date Time Temp Pulse Resp B/P (MAP) Pulse Ox O2 Delivery O2 Flow Rate FiO2 10/27/21 06:43 98.0 98 16 143/65 (91) 94 Nasal Cannula 2.0 98.0 I&O Intake and Output 10/27/21 07:00 Intake Total 400 ml Output Total 1600 ml Balance -1200 ml IV Total 400 ml Output Urine Total 500 ml Gastric Drainage Total 500 ml Drainage Total 600 ml General: Cooperative, Other (ill appearing ) HEENT: Other (NG in place) Lungs: Other (SOA on exam [address]) Abdomen: Other (distended, tender on exam ) Labs Laboratory Tests Test 10/26/21 07:05 10/27/21 00:12 10/27/21 05:40 10/27/21 05:47 Sodium Level 144 mmol/L (136-145) 143 mmol/L (136-145) Potassium Level 4.3 mmol/L (3.5-5.1) 4.3 mmol/L (3.5-5.1) Chloride Level 108 mmol/L (98-107) 108 mmol/L (98-107) Carbon Dioxide Level 31 mmol/L (21-32) 31 mmol/L (21-32) Anion Gap 5 (6-14) 4 (6-14) Blood Urea Nitrogen 18 mg/dL (7-20) 23 mg/dL (7-20) Creatinine 1.3 mg/dL (0.6-1.0) 1.3 mg/dL (0.6-1.0) Estimated GFR (Cockcroft-Gault) 39.1 39.1 Glucose Level 143 mg/dL (70-99) 163 mg/dL (70-99) Calcium Level 8.0 mg/dL (8.5-10.1) 7.8 mg/dL (8.5-10.1) Phosphorus Level 3.4 mg/dL (2.6-4.7) 3.4 mg/dL (2.6-4.7) Magnesium Level 2.0 mg/dL (1.8-2.4) 2.0 mg/dL (1.8-2.4) Albumin 1.6 g/dL (3.4-5.0) Glucose (Fingerstick) 161 mg/dL (70-99) 140 mg/dL (70-99) Triglycerides Level 171 mg/dL (0-150) Laboratory Tests Test 10/27/21 00:12 10/27/21 05:40 10/27/21 05:47 Glucose (Fingerstick) 161 mg/dL (70-99) 140 mg/dL (70-99) Sodium Level 143 mmol/L (136-145) Potassium Level 4.3 mmol/L (3.5-5.1) Chloride Level 108 mmol/L (98-107) Carbon Dioxide Level 31 mmol/L (21-32) Anion Gap 4 (6-14) Blood Urea Nitrogen 23 mg/dL (7-20) Creatinine 1.3 mg/dL (0.6-1.0) Estimated GFR (Cockcroft-Gault) 39.1 Glucose Level 163 mg/dL (70-99) Calcium Level 7.8 mg/dL (8.5-10.1) Phosphorus Level 3.4 mg/dL (2.6-4.7) Magnesium Level 2.0 mg/dL (1.8-2.4) Triglycerides Level 171 mg/dL (0-150) Problem List Problems Medical Problems: (1) Acute on chronic renal insufficiency Status: Acute (2) Ascites Status: Acute (3) Chronic diarrhea Status: Acute (4) Chronic vomiting Status: Acute (5) Partial small bowel obstruction Status: Acute Assessment/Plan tentative plan for OR today--I did discuss with Dr Blank, more SOA on exam today, will consult pulmonary for preop evaluation d/w Dr Howe yesterday, prelim bx benign, i still do not see official report Justicifation of Admission Dx: Justifications for Admission: Justification of Admission Dx: Yes ZEYNEP GARCIA MD 10/27/21 1651: SURGICAL PROGRESS NOTE Assessment/Plan 81 yo F with persistent SBO, despite conservative measures. Pt with poor pulm and cardiac status, malnutrition based on low albumin Pt not improving, despite NGT and previous SBFT. Elevated tumor markers. Despite pt being poor surgical candidate, favor proceeding with surgical exploration. R/R/B/A d/w pt and pt's supportive family. Risk, including, but not limited to; bleeding, infection, damage to surrounding structures, risk of anesthesia. They appear to understand, their questions are answered and they elect to proceed. MINGO CERVANTES APRN Oct 27, 2021 08:28 ZEYNEP GARCIA MD Oct 27, 2021 16:51
[2021-10-27] MEDS ORDERED: ALBUTEROL SULFATE 2.5 MG/3 ML NEBU. NEB PRN (08:30)
[2021-10-27] MEDS ORDERED: guaiFENesin DM 200MG/20MG 10 ML SYRUP PO PRN (08:30)
--- NOTE | 2021-10-27 08:46 | PDOC ---
[facility] [facility] PROGRESS NOTE Date of Service DOS: DATE: 10/27/21 TIME: 08:28 Chief Complaint Chief Complaint SBO Right pleural effusion Status post liver biopsy Peritoneal seeding suspect cancer Nausea vomiting Anxiety, anemia, diverticulitis, hypertension, renal failure, UTI, mitral valve prolapse, cataracts, colostomy, hysterectomy, previous tobacco abuse. History of Present Illness History of Present Illness 10/27: Seen bedside. Has become more dyspneic overnight. No chest pain. Abdominal pain is 4-10. NG tube suction. Review of images there is a moderate right pleural effusion and emphysematous changes. Ordered nebulizer treatments. Consult pulmonology. 10/26: Patient seen and examined. PICC line and TPN 10/25: Patient seen and examined. She is alert and oriented. Still has NG to suction. Still awaiting pathology report. 10/24: Patient seen and examined. She is resting with no apparent distress. Pathology results still pending 10/23: Patient seen and examined She is on D5 half-normal Chart reviewed Discussed with RN Discussed with case management I spoke with Dr. Banegas he is working on getting the pathology report done soon 10/22/2021 Patient seen and examined Discussed with RN Chart reviewed Discussed with case management I called oncology The plan is to get a liver biopsy today We suspect the elevated CA 25 level may be due to peritoneal cancer versus gastric cancer versus ovarian cancer (she has had her ovaries removed about 4 years ago however oncology explained she could still have ovarian CA) 10/21/2021 Patient seen and examined She still feels better with her NG in place CA-125 level is elevated to 582 Discussed with case management Discussed with RN 10/20/2021 Patient seen and examined We had to place an NG She states she feels better with the NG to suction Discussed with RN Chart reviewed Vitals/I&O Vitals/I&O: Vital Signs Date Time Temp Pulse Resp B/P (MAP) Pulse Ox O2 Delivery O2 Flow Rate FiO2 10/27/21 06:43 98.0 98 16 143/65 (91) 94 Nasal Cannula 2.0 98.0 I & O 10/26/21 10/26/21 10/27/21 15:00 23:00 07:00 Intake Total 400 ml Output Total 650 ml 950 ml Balance -250 ml -950 ml Physical Exam General: Alert, Cooperative Heart: Regular rate Lungs: Clear Abdomen: Other (ttp, distended) Extremities: No cyanosis, No edema Skin: No breakdown, No significant lesion Labs Labs: Laboratory Tests Test 10/27/21 00:12 10/27/21 05:40 10/27/21 05:47 Glucose (Fingerstick) 161 mg/dL (70-99) 140 mg/dL (70-99) Sodium Level 143 mmol/L (136-145) Potassium Level 4.3 mmol/L (3.5-5.1) Chloride Level 108 mmol/L (98-107) Carbon Dioxide Level 31 mmol/L (21-32) Anion Gap 4 (6-14) Blood Urea Nitrogen 23 mg/dL (7-20) Creatinine 1.3 mg/dL (0.6-1.0) Estimated GFR (Cockcroft-Gault) 39.1 Glucose Level 163 mg/dL (70-99) Calcium Level 7.8 mg/dL (8.5-10.1) Phosphorus Level 3.4 mg/dL (2.6-4.7) Magnesium Level 2.0 mg/dL (1.8-2.4) Triglycerides Level 171 mg/dL (0-150) Assessment and Plan Assessmemt and Plan Problems Medical Problems: (1) Acute on chronic renal insufficiency Status: Acute (2) Ascites Status: Acute (3) Chronic diarrhea Status: Acute (4) Chronic vomiting Status: Acute (5) Partial small bowel obstruction Status: Acute Comment Review of Relevant I have reviewed the following items mariusz (where applicable) has been applied. Medications: Current Medications Medications (Trade) Dose Ordered Sig/Ella Route PRN Reason Start Time Stop Time Status Last Admin Dose Admin Info (Tpn Per Pharmacy) 1 each PRN DAILY PRN MC SEE COMMENTS 10/26/21 09:00 10/26/21 13:56 Sodium Chloride 20 meq/Potassium Acetate 30 meq/ Potassium Phosphate 13.6 mmol/Magnesium Sulfate 10 meq/ Multivitamins 10 ml/Zinc/Copper/ Manganese/ Selenium 1 ml/ Total Parenteral Nutrition/Amino Acids/Dextrose/ Fat Emulsion Intravenous 1,512 ml @ 63 mls/hr TPN CONT IV 10/26/21 22:00 10/27/21 21:59 10/26/21 20:44 Justifications for Admission Other Justification YUKO CARBALLO MD Oct 27, 2021 08:46
[2021-10-27] MEDS ORDERED: MORPHINE SULFATE 2 MG/ML INJ. IVP PRN ×2 (09:00→10:15)
[2021-10-27] MEDS ORDERED: fentaNYL PF VIAL 100 MCG/2 ML VIAL IVP PRN ×4 (09:00→10:15)
[2021-10-27] MEDS: BUDESONIDE 0.5 MG/2 ML NEBU. NEB SCH ×2 (09:00→20:00)
[2021-10-27] MEDS ORDERED: IV RINGERS,LACTATED 1000ML 1,000 ML IV SCH ×2 (09:00→10:15)
[2021-10-27] MEDS ORDERED: HYDROmorphone 2 MG/ML INJ. IVP PRN ×2 (09:00→10:15)
[2021-10-27] MEDS: IPRATRPIUM/ALBUTEROL 0.5/2.5MG 3 ML NEBU. NEB SCH ×4 (09:00→20:00)
[2021-10-27] MEDS ORDERED: PROCHLORPERAZINE 10 MG/2 ML VIAL. IVP PRN ×2 (09:00→10:15)
--- NOTE | 2021-10-27 09:24 | CONS ---
DATE OF CONSULTATION: 10/27/2021 PULMONARY CONSULTATION REASON FOR CONSULTATION: Preop clearance, dyspnea, abnormal CT chest. HISTORY OF PRESENT ILLNESS: The patient is an 81-year-old who has a history of diverticulitis. She is status post partial colectomy. She was admitted to [facility] for further evaluation of abdominal pain. The patient has been having abdominal pain for the last 6 weeks, with recent worsening. CT of the abdomen and pelvis was performed and showed multiple dilated and fluid distended small bowel loops in the abdomen and also in the proximal and mid portion with collapsed small bowel loops distally. At that time, incarcerated hernia versus malignancy was a concern. There was also hypodense lesion identified in the liver, with largest measuring 2.8 cm. The patient also had a CT of the chest, which was reviewed by me. There was a moderate to large right sided pleural effusion and a small left pleural effusion. There was a 3.1 cm spiculated nodular opacity containing calcification in the right lung apex. The patient also had a 3.1 cm mass in the right thyroid lobe. This was similar compared with 2018. There were multiple hypodense lesions within the liver. The patient underwent liver biopsy. The results are pending. The patient has been seen by General Surgery and surgery has been planned. Peritoneal seeding from a suspected cancer is a concern. I have been asked to do preoperative clearance. The patient states she has been more short of breath since this morning. She has a mild dry cough. No chest pain. She does have abdominal pain. She has an NG tube in place. It is draining fluid. She did smoke for about 45 years before quitting. She said it was a half-pack per day. No pulmonary embolism. She is currently on oxygen. Prior to that, she was not on oxygen. She is on 2 liters. Consultation requested for further evaluation and management. PAST MEDICAL HISTORY: Significant for history of hypertension, hyperlipidemia, valvular insufficiency, diverticulosis, GERD, osteoarthritis, chronic renal insufficiency, and osteopenia. PAST SURGICAL HISTORY: Appendectomy, hysterectomy, colon resection. ALLERGIES: ADHESIVE TAPE. MEDICATIONS: Reviewed as listed in the MRAD including DuoNeb. REVIEW OF SYSTEMS: Twelve-point review of system obtained. Pertinent positives discussed in my present illness, otherwise, noncontributory. All systems that were negative were reviewed as well. PHYSICAL EXAMINATION: VITAL SIGNS: Reviewed. Blood pressure 143/65, afebrile, pulse ox 94% on 2 liters. GENERAL: She appears to be ill appearing. She is mildly tachypneic. NECK: Supple. LUNGS: With diminished breath sounds posteriorly. CARDIOVASCULAR: With a regular rate. ABDOMEN: Soft, mildly tender. EXTREMITIES: With trace pitting edema. LABORATORY DATA: Reviewed. White cell count 8.4, hemoglobin 9.6 and platelets are 594. BUN 23, creatinine 1.3. IMPRESSION: 1. Acute hypoxic respiratory failure, likely secondary to bilateral pleural effusions and abdominal process. 2. The patient with abnormal CT chest and abdomen and pelvis. She has multiple hypodense lesions in the liver. She comes in with small-bowel obstruction. Peritoneal carcinomatosis is the concern. There is abnormal right upper lobe parenchymal density 3.1 cm with some calcification. This was also present in imaging study from 2018 and is likely benign. She did have a liver biopsy and I have not seen the outpatient results yet. 3. Small-bowel obstruction and liver lesions. Surgery has been planned for today. 4. Forty-five years of tobaccoism. Likely underlying chronic obstructive pulmonary disease. 5. Bilateral pleural effusions seen on the CT chest, more on the right than on the left, likely secondary to low oncotic pressure. Cannot exclude malignant effusion. 6. Severe hypoalbuminemia contributing to low oncotic pressure and pleural effusions. RECOMMENDATIONS: 1. I have discussed with Dr. Chiu. The patient was also informed about her moderate risk of postoperative respiratory failure and ventilator dependent. She is very frail and is tachypneic. She would benefit from thoracentesis prior to the surgery. She is agreeable to that. 2. Obtain PT and INR. 3. Obtain a chest x-ray to rule out any worsening effusion. 4. IR consult. 5. Improve nutritional status. Her albumin is only 1.6 and contributing to the pleural effusions. 6. Follow up final liver biopsy results. 7. Discussed with RN. Discussed with Dr. Chiu. Chart reviewed, imaging studies reviewed. Total critical care time 33 minutes. BLAS/PARIS DR: BLAS/lacie TID: [id number] MTDD
--- NOTE | 2021-10-27 09:38 | PDOC ---
Date of Service: DATE: 10/27/21 TIME: 09:30 Subjective: Subjective: "Lousy." Some shortness of breath, abd discomfort. Says NGT came out and was replaced yesterday. "I'm having surgery at 3:00." Objective: Objective: Reviewed other notes - OR today? D/w Dr. Arzate - plans for thoracentesis, increased operative risk. I don't see path report from liver biopsy - discussion in chart yesterday prelim report was benign. Vital Signs: Vital Signs Date Time Temp Pulse Resp B/P (MAP) Pulse Ox O2 Delivery O2 Flow Rate FiO2 10/27/21 06:43 98.0 98 16 143/65 (91) 94 Nasal Cannula 2.0 98.0 Labs: Laboratory Tests Test 10/27/21 00:12 10/27/21 05:40 10/27/21 05:47 10/27/21 08:40 Glucose (Fingerstick) 161 mg/dL 140 mg/dL Sodium Level 143 mmol/L Potassium Level 4.3 mmol/L Chloride Level 108 mmol/L Carbon Dioxide Level 31 mmol/L Anion Gap 4 Blood Urea Nitrogen 23 mg/dL Creatinine 1.3 mg/dL Estimated GFR (Cockcroft-Gault) 39.1 Glucose Level 163 mg/dL Calcium Level 7.8 mg/dL Phosphorus Level 3.4 mg/dL Magnesium Level 2.0 mg/dL Triglycerides Level 171 mg/dL SARS-CoV-2 Antigen (Rapid) Negative PE: GEN: chronically ill LUNGS: diminished, some shortness of breath noted HEART: borderline tachycardic - better today ABD: distended, uncomfortable, quiet NEURO/PSYCH: A & O 3, pleasant and cooperative A/P: Suspected metastatic disease s/p liver biopsy 10/22/21 - official report pending though discussion per others benign findings SBO JESÚS/ACD H/o A Fib Resp failure, pleural effusions Hypoalbuminemia - now on TPN -- Difficult situation w/ persistent SBO, resp failure, advanced age - tentative plans for OR today. Justicifation of Admission Dx: Justifications for Admission: Justification of Admission Dx: Yes IRASEMA MCCARTY Oct 27, 2021 09:38
--- NOTE | 2021-10-27 10:14 | RAD ---
XR CHEST 1V History: Reason: Worsening shortness of breath, decreased breath sounds, right pleural effus / Spl. I nstructions: / History: Comparison: October 08, 2021 chest x-ray. Abdominal radiograph October 26, 2021 Findings: Small to moderate right layering pleural effusion. Increased small left layering pleural effusion. In creased patchy mid and bibasilar opacities. Enteric tube with tip projecting over the proximal stomach and side port within the distal esophagus. Right PICC with tip projecting over the cavoatrial junction. No pneumothorax. Normal heart size. Impression: 1. Small to moderate right and small left layering pleural effusions with adjacent opacities, may re present atelectasis or consolidations. 2. Enteric tube with tip projecting over the proximal stomach and side port within the distal esopha aarti. Recommend advancement. Electronically signed by: Ervin Delgadillo DO (10/27/2021 10:12 AM) [id number]
--- NOTE | 2021-10-27 11:22 | NUR ---
SS following up with discharge planning. SS reviewed pt chart and discussed with pt RN. Pt is currently requiring oxygen at two liters nasal canula. COVID19 negative. Pt on TPN. Pulmonology consulted. Pt having Thoracentesis today. Pt also having exploratory surgery today as well and per RN will transfer to ICU. Not ready. Pt is skilled rehabilitation resident from [facility], ; fax [phone]. SS will continue to follow for discharge planning.
--- NOTE | 2021-10-27 12:31 | RAD ---
Right Thoracentesis 10/27/2021 11:00 AM Clinical History: Right pleural effusion. Technique: Relative benefits risks and alternatives were discussed with the patient and/or their rep resentative. Written informed consent was obtained. The patient was placed in seated position. A luz eout procedure was performed. Sonographic assessment demonstrates a large pleural effusion. A site for skin entry was selected, and subsequently prepped and draped using sterile barrier technique. 1% lidocaine without epinepherine was administered for local anesthesia to the skin and subcutaenous tissues. A 5 Turkish sheathed needle was passed into the pleural space. Clear yellow fluid was aspirated and t he catheter was connected to a vacuum. Approximately 700 cc of fluid were drained. The catheter was r emoved and adequate hemostasis was obtained. A sterile dressing was applied. The patient tolerated t he procedure well, without complications. Impression: Successful ultrasound guided thoracentesis with removal of 700 cc of fluid. Electronically signed by: Scott Lopez MD (10/27/2021 12:29 PM) [id number]
[2021-10-27] MEDS: TPN PER PHARMACY MC PRN (13:49)
--- NOTE | 2021-10-27 13:49 | NUR ---
Pharmacy TPN Dosing Note S: OLI MARISCAL is a 81 year old F Currently receiving Central Continuous TPN started 10/26/21 B:Pertinent PMH: bowel obstruction Height: 5 feet, 5 inches Weight: 73.2 kg Current diet: npo LABS: Sodium: 143 Potassium: 4.3 Chloride: 108 Calcium: 7.8 Corrected Calcium: 9.72 Magnesium: 2.0 CO2: 31 SCr: 1.3 Glucose: 163, 140 Albumin: 1.6 AST: 22 ALT: 26 TPN FORMULA: TPN TYPE: Central Continuous AMINO ACIDS: 60 gm DEXTROSE: 195 gm LIPIDS: 20 gm SODIUM CHLORIDE: 20 mEq POTASSIUM ACETATE: 30 mEq POTASSIUM PHOSPHATE: 13.6 mmol MAGNESIUM: 10 mEq MULTIPLE VITAMIN: 10 ml TRACE ELEMENTS: 1 ml TPN PLAN: -Labs appear WNL and stable. Continue same TPN. -Serum triglycerides 171, okay to continue with lipid component. -BMP, mag, phos tomorrow. R: Continue TPN @ current rate of 63 ml/hr and with above formula. Will monitor electrolytes, glucose, and tolerance to TPN. MEEK FONSECA [facility], 10/27/21 [id number]
[2021-10-27] MEDS ORDERED: BUPIVACAINE-EPI 0.5% 30 ML VIAL KIT. ONE (14:24)
[2021-10-27] MEDS ORDERED: fentaNYL PF VIAL 250 MCG/5 ML VIAL ONE (16:13)
[2021-10-27] MEDS ORDERED: ROCURONIUM 100 MG/10 ML VIAL. ONE (16:13)
[2021-10-27] MEDS ORDERED: DEXAMETHASONE SOD PHOS 4 MG/ML VIAL ONE (16:15)
[2021-10-27] MEDS ORDERED: LIDOCAINE 2% PF 5 ML VIAL. ONE (16:15)
[2021-10-27] MEDS ORDERED: PROPOFOL 10 MG/ML (20ML) VIAL. IV ONE (16:15)
[2021-10-27] MEDS ORDERED: ONDANSETRON PF 4 MG/2 ML VIAL. ONE (16:15)
[2021-10-27] MEDS ORDERED: SEVOFLURANE > 120 MINUTES. IH ONE (16:15)
[2021-10-27] MEDS ORDERED: cefOXitin SODIUM IV Push 2 GM VIAL. IVP ONE (16:33)
--- NOTE | 2021-10-27 16:51 | PDOC ---
SONYA GARVIN APPLICATION DEVELOPMENT INTERN 10/27/21 1651: CARDIO Progress Notes Date and Time Date of Service 10/27/21 Time of Evaluation 1215 Subjective Subjective: No Chest Pain, No shortness of breath, No Dizziness Vitals Vitals Vital Signs Date Time Temp Pulse Resp B/P (MAP) Pulse Ox O2 Delivery O2 Flow Rate FiO2 10/27/21 14:35 98.0 107 20 150/74 95 Nasal Cannula 2.0 98.0 Weight Weight [ ] Input and Output Intake and Output Intake and Output 10/27/21 07:00 Intake Total 400 ml Output Total 1600 ml Balance -1200 ml IV Total 400 ml Output Urine Total 500 ml Gastric Drainage Total 500 ml Drainage Total 600 ml Laboratory Labs Laboratory Tests Test 10/27/21 00:12 10/27/21 05:40 10/27/21 05:47 10/27/21 08:40 Glucose (Fingerstick) 161 mg/dL (70-99) 140 mg/dL (70-99) Sodium Level 143 mmol/L (136-145) Potassium Level 4.3 mmol/L (3.5-5.1) Chloride Level 108 mmol/L (98-107) Carbon Dioxide Level 31 mmol/L (21-32) Anion Gap 4 (6-14) Blood Urea Nitrogen 23 mg/dL (7-20) Creatinine 1.3 mg/dL (0.6-1.0) Estimated GFR (Cockcroft-Gault) 39.1 Glucose Level 163 mg/dL (70-99) Calcium Level 7.8 mg/dL (8.5-10.1) Phosphorus Level 3.4 mg/dL (2.6-4.7) Magnesium Level 2.0 mg/dL (1.8-2.4) Triglycerides Level 171 mg/dL (0-150) SARS-CoV-2 Antigen (Rapid) Negative (NEGATIVE) Test 10/27/21 09:50 10/27/21 11:51 Prothrombin Time 14.0 SEC (11.7-14.0) Prothromb Time International Ratio 1.1 (0.8-1.1) Activated Partial Thromboplast Time 34 SEC (24-38) Glucose (Fingerstick) 150 mg/dL (70-99) Microbiology Micro Microbiology 10/19/21 Blood Culture - Final, Complete NO GROWTH AFTER 5 DAYS Review of Systems Constitutional: yes: weakness, alert, oriented Ears/Nose/Throat: Yes: no symptom reported Eyes: Yes: no symptom reported Pulmonary: Yes no symptom reported Cardiovascular: Yes no symptom reported Gastrointestional: Yes: nausea, abdominal pain Genitourinary: Yes: no symptom reported Musculoskeletal: Yes: no symptom reported Skin: Yes no symptom reported Psychiatric/Neurological: Yes: no symptom reported Endocrine: Yes: no symptom reported Physical Exam HEENT: Neck Supple W Full Motion, Other (NGT) Chest: Symmetric LUNGS: Clear to Auscultation Heart: RRR Abdomen: Other (tender to palpation ) Extremities: No Edema Neurology: alert, oriented, follow commands Assessment Assessment 1. Abdominal pain/diarrhea: SBO with liver lesions. metastatic disease suspected, althoug liver biopsy path reportedly benign. NG tube remains in place. plans for OR today. continue as per GS 2. Arrhythmia: PAFIB 3 days ago and converted to SR/ST with digoxin likely precipitated by above. Remains in a sinus rhythm. Continue metoprolol for rate control 3. Acute respiratory failure, bilateral pleural effusion. multifactorial. s/p thoracentesis with 400cc off 3. Chronic diastolic CHF: compensated 4. HTN: Controlled Justicifation of Admission Dx: Justifications for Admission: Justification of Admission Dx: Yes RANJAN LUO MD 10/28/21 1505: CARDIO Progress Notes Assessment Assessment Patient seen and examined on 10/27/2021. Patient continues to be uncomfortable with an NG tube in place. I agree with our nurse practitioners assessment and plan. Abdominal pain/diarrhea: SBO with liver lesions. metastatic disease suspected, althoug liver biopsy path reportedly benign. NG tube remains in place. plans for OR . continue as per GS Arrhythmia: PAFIB 3 days ago and converted to SR/ST with digoxin likely precipitated by above. Remains in a sinus rhythm. Continue metoprolol for rate control Acute respiratory failure, bilateral pleural effusion. multifactorial. s/p thoracentesis with 400cc off Chronic diastolic CHF: compensated HTN: Controlled SONYA GARVIN APRN Oct 27, 2021 16:51 RANJAN LUO MD Oct 28, 2021 15:05
[2021-10-27] MEDS ORDERED: ALBUMIN HUMAN 5% 500 ML IV ONE (17:22)
[2021-10-27] MEDS ORDERED: PHENYLEPHRINE in 0.9% NACL PF 1 MG/10 ML SYRINGE. IV ONE (17:22)
[2021-10-27] MEDS ORDERED: GLYCOPYRROLATE 1 MG/5 ML VIAL. ONE (17:44)
[2021-10-27] MEDS ORDERED: NEOSTIGMINE METHYLSULFATE 5 MG/5 ML SYRINGE. ONE (17:44)
[2021-10-27] MEDS: PROCHLORPERAZINE 10 MG/2 ML VIAL. IV PRN (20:28)
[2021-10-27] MEDS: MORPHINE SULFATE 2 MG/ML INJ. IVP PRN ×2 (20:29→23:54)
[2021-10-27] MEDS: IV NORMAL SALINE 1000ML BAG 1,000 ML IV SCH (20:30)
[2021-10-27] MEDS ORDERED: NALOXONE 0.4 MG/ML VIAL. IV PRN (20:30)
[2021-10-27] MEDS ORDERED: 0.9 % SODIUM CHLORIDE 10 ML DISP.SYRIN. IV PRN (20:30)
[2021-10-27] MEDS ORDERED: MORPHINE SULFATE 30 ML IV PRN (20:30)
--- NOTE | 2021-10-27 21:04 | PDOC4 ---
OPERATIVE NOTE Date: Date: Oct 27, 2021 Pre-Op Diagnosis: Small bowel obstruction Post-Op Diagnosis: same, carcinomatosis Procedure Performed: Exploratory laparotomy, omental biopsy, liver biopsy, Gastrostomy tube placement Surgeon: Jean Garcia Anesthesia Type: GETA Blood Loss: 50 Specimans Obtained: omental biopsy, LUQ omental biopsy, liver biopsy, ascites sampling for cytology Findings: carcinomatosis, normal liver, liver cyst Complications: none Operative Note: After obtaining informed consent, patient was taken to OR, induced under GETA and prepped in the usual fashion. Consideration of laparoscopic exploration was considered, but given firm abdomen, this was not appropriate. Upper midline incision was made with cautery. Fascia sharply opened. Ascites came out and sampled and sent to pathology. Firm carcinomatosis was encountered. Given extensive disease, known small bowel mesentery disease and poor medical condition and malnutrition, attempts at surgical correction of SBO not attempted. Multiple biopsies obtained of omentum and upper abdomen obtained and hemostasis obtained with cautery. Liver cyst wall biopsied. In hopes of some palliation, a G-tube was placed in anterior stomach between 3 0 vicryl pursestring and tacked to anterior abdominal wall using 3 0 vicryl. Balloon inflated and brought to abdominal wall. Fascia repaired with 0 looped PDS. Skin repaired with 3 0 vicryl and 4 0 monocryl. Dressing placed. Patient tolerated procedure and sent to PACU in stable condition. All counts correct. Wound class is 3. ZEYNEP GARCIA MD Oct 27, 2021 21:04
[2021-10-27] MEDS ORDERED: DEXTROSE 70% IV SCH (22:00)
[2021-10-27] MEDS ORDERED: [UNRECOGNIZED DRUG - OTHER] IV SCH (22:00)
[2021-10-27] MEDS ORDERED: AMINO ACID IV SCH (22:00)
[2021-10-27] MEDS ORDERED: TOTAL PARENTERAL NUTRITION IV SCH (22:00)
[2021-10-27] MEDS: ONDANSETRON PF 4 MG/2 ML VIAL. IVP PRN (23:53)
[2021-10-28] VITALS (7 sets, daily range): BP systolic 103–132; BP diastolic 51–60
[2021-10-28] MEDS: PROCHLORPERAZINE 10 MG/2 ML VIAL. IV PRN ×2 (03:18→19:24)
[2021-10-28] MEDS: MORPHINE SULFATE 2 MG/ML INJ. IVP PRN ×3 (03:18→19:25)
[2021-10-28] MEDS: METOPROLOL IV PUSH 5 MG/5 ML VIAL. IVP SCH ×3 (05:58→17:07)
[2021-10-28] MEDS: INSULIN LISPRO 300 UNITS/3 ML VIAL. SQ SCH ×3 (06:00→17:07)
[2021-10-28] MEDS: PANTOPRAZOLE IV PUSH 40 MG VIAL. IVP SCH ×2 (06:46→17:06)
[2021-10-28 07:10] LABS: CALCIUM 7.5 mg/dL (8.5-10.1); CREATININE 1.4 mg/dL (0.6-1.0); GFR 35.9; MAGNESIUM 2.2 mg/dL (1.8-2.4); POTASSIUM 4.5 mmol/L (3.5-5.1)
[2021-10-28] MEDS: IPRATRPIUM/ALBUTEROL 0.5/2.5MG 3 ML NEBU. NEB SCH ×4 (07:16→20:51)
[2021-10-28] MEDS: BUDESONIDE 0.5 MG/2 ML NEBU. NEB SCH ×2 (07:17→20:52)
--- NOTE | 2021-10-28 07:54 | PDOC ---
[facility] PROGRESS NOTE Date of Service DOS: DATE: 10/28/21 TIME: 07:53 Chief Complaint Chief Complaint SBO Right pleural effusion Status post liver biopsy Peritoneal seeding suspect cancer Nausea vomiting Anxiety, anemia, diverticulitis, hypertension, renal failure, UTI, mitral valve prolapse, cataracts, colostomy, hysterectomy, previous tobacco abuse. History of Present Illness History of Present Illness 10/28: Seen postop day 1. Shortness of breath is improved. Still with significant NG tube output. Pain is reasonably controlled. Based on the findings I have discussed potential positive care hospice on discharge with family. 10/27: Seen bedside. More dyspneic overnight. No CP. Abdominal pain is 4-10. NG tube suction. To IR for 800cc drain of moderate right pleural effusion Consult pulmonology. To OR for mental biopsy lab lysis of lesions and gastrostomy tube placement. 10/26: Patient seen and examined. PICC line and TPN 10/25: Patient seen and examined. She is alert and oriented. Still has NG to suction. Still awaiting pathology report. 10/24: Patient seen and examined. She is resting with no apparent distress. Pathology results still pending 10/23: Patient seen and examined She is on D5 half-normal Chart reviewed Discussed with RN Discussed with case management I spoke with Dr. Banegas he is working on getting the pathology report done soon 10/22/2021 Patient seen and examined Discussed with RN Chart reviewed Discussed with case management I called oncology The plan is to get a liver biopsy today We suspect the elevated CA 25 level may be due to peritoneal cancer versus gastric cancer versus ovarian cancer (she has had her ovaries removed about 4 years ago however oncology explained she could still have ovarian CA) 10/21/2021 Patient seen and examined She still feels better with her NG in place CA-125 level is elevated to 582 Discussed with case management Discussed with RN 10/20/2021 Patient seen and examined We had to place an NG She states she feels better with the NG to suction Discussed with RN Chart reviewed Vitals/I&O Vitals/I&O: Vital Signs Date Time Temp Pulse Resp B/P (MAP) Pulse Ox O2 Delivery O2 Flow Rate FiO2 10/28/21 07:22 95 Nasal Cannula 3.0 10/28/21 05:58 100 103/51 10/28/21 03:48 18 10/28/21 03:00 97.7 97.7 I & O 10/27/21 10/27/21 10/28/21 15:00 23:00 07:00 Intake Total 3712 ml 0 ml Output Total 800 ml 700 ml 200 ml Balance -800 ml 3012 ml -200 ml Physical Exam General: Cooperative, Other (ill appearing ) Heart: Regular rate Lungs: Clear Abdomen: Other (distended, tender on exam ) Extremities: No cyanosis, No edema Skin: No breakdown, No significant lesion Labs Labs: Laboratory Tests Test 10/27/21 08:40 10/27/21 09:50 10/27/21 11:51 10/27/21 18:22 SARS-CoV-2 Antigen (Rapid) Negative (NEGATIVE) Prothrombin Time 14.0 SEC (11.7-14.0) Prothromb Time International Ratio 1.1 (0.8-1.1) Activated Partial Thromboplast Time 34 SEC (24-38) Glucose (Fingerstick) 150 mg/dL (70-99) 143 mg/dL (70-99) Test 10/28/21 06:29 10/28/21 06:30 Glucose (Fingerstick) 153 mg/dL (70-99) Sodium Level 140 mmol/L (136-145) Potassium Level 4.5 mmol/L (3.5-5.1) Chloride Level 108 mmol/L (98-107) Carbon Dioxide Level 30 mmol/L (21-32) Anion Gap 2 (6-14) Blood Urea Nitrogen 29 mg/dL (7-20) Creatinine 1.4 mg/dL (0.6-1.0) Estimated GFR (Cockcroft-Gault) 35.9 Glucose Level 158 mg/dL (70-99) Calcium Level 7.5 mg/dL (8.5-10.1) Phosphorus Level 3.0 mg/dL (2.6-4.7) Magnesium Level 2.2 mg/dL (1.8-2.4) Assessment and Plan Assessmemt and Plan Problems Medical Problems: (1) Acute on chronic renal insufficiency Status: Acute (2) Ascites Status: Acute (3) Chronic diarrhea Status: Acute (4) Chronic vomiting Status: Acute (5) Partial small bowel obstruction Status: Acute Comment Review of Relevant I have reviewed the following items mariusz (where applicable) has been applied. Medications: Current Medications Medications (Trade) Dose Ordered Sig/Ella Route PRN Reason Start Time Stop Time Status Last Admin Dose Admin Budesonide (Pulmicort) 0.5 mg RTBID NEB 10/27/21 09:00 10/28/21 07:17 Albuterol/ Ipratropium (Duoneb) 3 ml RTQID NEB 10/27/21 09:00 10/28/21 07:16 Ringer's Solution 1,000 ml @ 30 mls/hr Q24H IV 10/27/21 10:15 10/27/21 22:14 DC 10/27/21 14:51 Sodium Chloride 20 meq/Potassium Acetate 30 meq/ Potassium Phosphate 13.6 mmol/Magnesium Sulfate 10 meq/ Multivitamins 10 ml/Zinc/Copper/ Manganese/ Selenium 1 ml/ Total Parenteral Nutrition/Amino Acids/Dextrose/ Fat Emulsion Intravenous 1,512 ml @ 63 mls/hr TPN CONT IV 10/27/21 22:00 10/28/21 21:59 10/27/21 20:28 Ondansetron HCl (Zofran) 4 mg PRN Q6HRS PRN IVP LAYO, 1ST CHOICE 10/27/21 20:30 10/27/21 23:53 Justifications for Admission Other Justification YUKO CARBALLO MD Oct 28, 2021 07:54
[2021-10-28] MEDS: ONDANSETRON PF 4 MG/2 ML VIAL. IVP PRN (08:29)
--- NOTE | 2021-10-28 08:37 | RAD ---
XR ABDOMEN 2V History: Reason: s/p xlap / Spl. Instructions: / History: Technique: Upright and supine views of the abdomen. Comparison: October 26, 2021 Findings: Interval placement enteric tube with tip projecting over the mid gastric body. Small bilateral pleura l effusions with patchy adjacent opacities. Minimal small bowel gas. Air and enteric contrast scatter ed throughout the colon. Multilevel lumbar spondylosis. Gastrostomy tube noted. Impression: 1. Enteric tube with tip projecting over the proximal gastric body. 2. Nonobstructed bowel gas pattern. 3. Small bilateral pleural effusions with adjacent opacities, similar compared to prior. Electronically signed by: Ervin Delgadillo DO (10/28/2021 8:35 AM) [id number]
--- NOTE | 2021-10-28 08:48 | PDOC ---
Date of Service: DATE: 10/28/21 TIME: 08:44 Subjective: Subjective: Lots of pain, says just got a pain shot. I asked if she knew about findings - she said no - I told her cancer was found. Objective: Objective: Reviewed op note from yesterday: Pre-Op Diagnosis: Small bowel obstruction Post-Op Diagnosis: same, carcinomatosis Procedure Performed: Exploratory laparotomy, omental biopsy, liver biopsy, Gastrostomy tube placement Specimans Obtained: omental biopsy, LUQ omental biopsy, liver biopsy, ascites sampling for cytology Findings: carcinomatosis, normal liver, liver cyst Vital Signs: Vital Signs Date Time Temp Pulse Resp B/P (MAP) Pulse Ox O2 Delivery O2 Flow Rate FiO2 10/28/21 08:29 95 Nasal Cannula 3.0 10/28/21 07:00 99.2 99 16 125/56 (79) 99.2 Labs: Laboratory Tests Test 10/27/21 09:50 10/27/21 11:51 10/27/21 18:22 10/28/21 06:29 Prothrombin Time 14.0 SEC Prothromb Time International Ratio 1.1 Activated Partial Thromboplast Time 34 SEC Glucose (Fingerstick) 150 mg/dL 143 mg/dL 153 mg/dL Test 10/28/21 06:30 Sodium Level 140 mmol/L Potassium Level 4.5 mmol/L Chloride Level 108 mmol/L Carbon Dioxide Level 30 mmol/L Anion Gap 2 Blood Urea Nitrogen 29 mg/dL Creatinine 1.4 mg/dL Estimated GFR (Cockcroft-Gault) 35.9 Glucose Level 158 mg/dL Calcium Level 7.5 mg/dL Phosphorus Level 3.0 mg/dL Magnesium Level 2.2 mg/dL Imaging: Thoracentesis 10/27 Impression: Successful ultrasound guided thoracentesis with removal of 700 cc of fluid. CXR Impression: 1. Small to moderate right and small left layering pleural effusions with adjacent opacities, may represent atelectasis or consolidations. 2. Enteric tube with tip projecting over the proximal stomach and side port within the distal esophagus. Recommend advancement. Abd X-Ray 10/28 Impression: 1. Enteric tube with tip projecting over the proximal gastric body. 2. Nonobstructed bowel gas pattern. 3. Small bilateral pleural effusions with adjacent opacities, similar compared to prior. PE: GEN: chronically ill LUNGS: NC, diminished HEART: RRR ABD: abd binder, NGT bilious NEURO/PSYCH: lethargic, pretty drowsy - drifts in and out during our conversation A/P: SBO, carcinomatosis, s/p ex lap w/ omental and liver biopsies, G tube placement H/o A Fib Pleural effusions s/p thoracentesis -- Biopsies pending, oncology following. Goals of care discussion? Justicifation of Admission Dx: Justifications for Admission: Justification of Admission Dx: Yes IRASEMA MCCARTY Oct 28, 2021 08:48
--- NOTE | 2021-10-28 09:49 | PDOC ---
SURGICAL PROGRESS NOTE DATE: 10/28/21 TIME: 09:48 Subjective very sore easily falls asleep Vital Signs Vital Signs Date Time Temp Pulse Resp B/P (MAP) Pulse Ox O2 Delivery O2 Flow Rate FiO2 10/28/21 08:29 95 Nasal Cannula 3.0 10/28/21 07:00 99.2 99 16 125/56 (79) 99.2 I&O Intake and Output 10/28/21 07:00 Intake Total 3712 ml Output Total 1700 ml Balance 2012 ml Intake Oral 0 ml IV Total 3712 ml Output Urine Total 600 ml Gastric Drainage Total 350 ml Drainage Total 700 ml Estimated Blood Loss 50 ml PATIENT HAS A CALL: Yes General: Cooperative, No acute distress HEENT: Other (ng) Abdomen: Soft, Other (binder in place, g tube) Labs Laboratory Tests Test 10/27/21 00:12 10/27/21 05:40 10/27/21 05:47 10/27/21 08:40 Glucose (Fingerstick) 161 mg/dL (70-99) 140 mg/dL (70-99) Sodium Level 143 mmol/L (136-145) Potassium Level 4.3 mmol/L (3.5-5.1) Chloride Level 108 mmol/L (98-107) Carbon Dioxide Level 31 mmol/L (21-32) Anion Gap 4 (6-14) Blood Urea Nitrogen 23 mg/dL (7-20) Creatinine 1.3 mg/dL (0.6-1.0) Estimated GFR (Cockcroft-Gault) 39.1 Glucose Level 163 mg/dL (70-99) Calcium Level 7.8 mg/dL (8.5-10.1) Phosphorus Level 3.4 mg/dL (2.6-4.7) Magnesium Level 2.0 mg/dL (1.8-2.4) Triglycerides Level 171 mg/dL (0-150) SARS-CoV-2 Antigen (Rapid) Negative (NEGATIVE) Test 10/27/21 09:50 10/27/21 11:51 10/27/21 18:22 10/28/21 06:29 Prothrombin Time 14.0 SEC (11.7-14.0) Prothromb Time International Ratio 1.1 (0.8-1.1) Activated Partial Thromboplast Time 34 SEC (24-38) Glucose (Fingerstick) 150 mg/dL (70-99) 143 mg/dL (70-99) 153 mg/dL (70-99) Test 10/28/21 06:30 Sodium Level 140 mmol/L (136-145) Potassium Level 4.5 mmol/L (3.5-5.1) Chloride Level 108 mmol/L (98-107) Carbon Dioxide Level 30 mmol/L (21-32) Anion Gap 2 (6-14) Blood Urea Nitrogen 29 mg/dL (7-20) Creatinine 1.4 mg/dL (0.6-1.0) Estimated GFR (Cockcroft-Gault) 35.9 Glucose Level 158 mg/dL (70-99) Calcium Level 7.5 mg/dL (8.5-10.1) Phosphorus Level 3.0 mg/dL (2.6-4.7) Magnesium Level 2.2 mg/dL (1.8-2.4) Laboratory Tests Test 10/27/21 09:50 10/27/21 11:51 10/27/21 18:22 10/28/21 06:29 Prothrombin Time 14.0 SEC (11.7-14.0) Prothromb Time International Ratio 1.1 (0.8-1.1) Activated Partial Thromboplast Time 34 SEC (24-38) Glucose (Fingerstick) 150 mg/dL (70-99) 143 mg/dL (70-99) 153 mg/dL (70-99) Test 10/28/21 06:30 Sodium Level 140 mmol/L (136-145) Potassium Level 4.5 mmol/L (3.5-5.1) Chloride Level 108 mmol/L (98-107) Carbon Dioxide Level 30 mmol/L (21-32) Anion Gap 2 (6-14) Blood Urea Nitrogen 29 mg/dL (7-20) Creatinine 1.4 mg/dL (0.6-1.0) Estimated GFR (Cockcroft-Gault) 35.9 Glucose Level 158 mg/dL (70-99) Calcium Level 7.5 mg/dL (8.5-10.1) Phosphorus Level 3.0 mg/dL (2.6-4.7) Magnesium Level 2.2 mg/dL (1.8-2.4) Problem List Problems Medical Problems: (1) Acute on chronic renal insufficiency Status: Acute (2) Ascites Status: Acute (3) Chronic diarrhea Status: Acute (4) Chronic vomiting Status: Acute (5) Partial small bowel obstruction Status: Acute Assessment/Plan supportive care path pending Justicifation of Admission Dx: Justifications for Admission: Justification of Admission Dx: Yes MINGO CERVANTES APRN Oct 28, 2021 09:49
--- NOTE | 2021-10-28 10:02 | PDOC ---
PULMONARY PROGRESS NOTES DATE: 10/28/21 TIME: 09:59 Subjective Patient appears very weak lethargic. She underwent thoracentesis 10/27/2021 with 700 cc of fluid removed. Status post expiratory laparotomy 10/27/2021 Vitals Vital Signs Date Time Temp Pulse Resp B/P (MAP) Pulse Ox O2 Delivery O2 Flow Rate FiO2 10/28/21 08:29 95 Nasal Cannula 3.0 10/28/21 07:00 99.2 99 16 125/56 (79) 99.2 General: No acute distress, Lethargic Lungs: Clear Abdomen: Soft, Non-tender Extremities: Other (1+ edema) Labs Laboratory Tests Test 10/27/21 00:12 10/27/21 05:40 10/27/21 05:47 10/27/21 08:40 Glucose (Fingerstick) 161 mg/dL (70-99) 140 mg/dL (70-99) Sodium Level 143 mmol/L (136-145) Potassium Level 4.3 mmol/L (3.5-5.1) Chloride Level 108 mmol/L (98-107) Carbon Dioxide Level 31 mmol/L (21-32) Anion Gap 4 (6-14) Blood Urea Nitrogen 23 mg/dL (7-20) Creatinine 1.3 mg/dL (0.6-1.0) Estimated GFR (Cockcroft-Gault) 39.1 Glucose Level 163 mg/dL (70-99) Calcium Level 7.8 mg/dL (8.5-10.1) Phosphorus Level 3.4 mg/dL (2.6-4.7) Magnesium Level 2.0 mg/dL (1.8-2.4) Triglycerides Level 171 mg/dL (0-150) SARS-CoV-2 Antigen (Rapid) Negative (NEGATIVE) Test 10/27/21 09:50 10/27/21 11:51 10/27/21 18:22 10/28/21 06:29 Prothrombin Time 14.0 SEC (11.7-14.0) Prothromb Time International Ratio 1.1 (0.8-1.1) Activated Partial Thromboplast Time 34 SEC (24-38) Glucose (Fingerstick) 150 mg/dL (70-99) 143 mg/dL (70-99) 153 mg/dL (70-99) Test 10/28/21 06:30 Sodium Level 140 mmol/L (136-145) Potassium Level 4.5 mmol/L (3.5-5.1) Chloride Level 108 mmol/L (98-107) Carbon Dioxide Level 30 mmol/L (21-32) Anion Gap 2 (6-14) Blood Urea Nitrogen 29 mg/dL (7-20) Creatinine 1.4 mg/dL (0.6-1.0) Estimated GFR (Cockcroft-Gault) 35.9 Glucose Level 158 mg/dL (70-99) Calcium Level 7.5 mg/dL (8.5-10.1) Phosphorus Level 3.0 mg/dL (2.6-4.7) Magnesium Level 2.2 mg/dL (1.8-2.4) Laboratory Tests Test 10/27/21 11:51 10/27/21 18:22 10/28/21 06:29 10/28/21 06:30 Glucose (Fingerstick) 150 mg/dL (70-99) 143 mg/dL (70-99) 153 mg/dL (70-99) Sodium Level 140 mmol/L (136-145) Potassium Level 4.5 mmol/L (3.5-5.1) Chloride Level 108 mmol/L (98-107) Carbon Dioxide Level 30 mmol/L (21-32) Anion Gap 2 (6-14) Blood Urea Nitrogen 29 mg/dL (7-20) Creatinine 1.4 mg/dL (0.6-1.0) Estimated GFR (Cockcroft-Gault) 35.9 Glucose Level 158 mg/dL (70-99) Calcium Level 7.5 mg/dL (8.5-10.1) Phosphorus Level 3.0 mg/dL (2.6-4.7) Magnesium Level 2.2 mg/dL (1.8-2.4) Medications Active Scripts Medications Dose Route/Sig Max Daily Dose Days Date Category Dose Instructions Ondansetron Odt (Ondansetron) 4 Mg Tab.rapdis 1 Tab PO PRN Q6-8HRS 10/14/21 Rx Dicyclomine Hcl 10 Mg Capsule 10 Mg PO PRN QID PRN 10/14/21 Rx Stool Softener (Docusate Sodium) 50 Mg Capsule 1 Cap PO DAILY PRN 30 10/04/21 Reported Tylenol (Acetaminophen) 325 Mg Tablet 1-2 Tab PO HS 10/04/21 Reported Perphen-Amitrip 2 Mg-10 Mg Tab (Perphenazine/Amitriptyline Hcl) 1 Each Tablet 1 Tab PO QHS 10/04/21 Reported Methotrexate (Methotrexate Sodium) 2.5 Mg Tablet 10 Tab PO Tuesday10/04/21 Reported Folic Acid 0.8 Mg Capsule 1 Cap PO DAILY 30 10/04/21 Reported Vitamin D3 (Vitamin D) 25 Mcg Tablet 25 Mcg PO DAILY 10/04/21 Reported 1,000 UNITS = 25 MCG Amlodipine Besylate 2.5 Mg Tablet 2.5 Mg PO DAILY 02/07/19 Reported Vit C-Quyen Hips 500 mg Chew Tb (Ascorbic Acid/Ascorbate Sodium) 500 Mg Tab.chew 500 Mg PO DAILY 02/07/19 Reported Probiotic Acidophilus (Lactobacillus Acidophilus) 1 Each Tablet 1 Each PO DAILY 02/07/19 Reported Metoprolol Tartrate 50 Mg Tablet 50 Mg PO BID 02/07/19 Reported Omeprazole 20 Mg Tablet.dr 20 Mg PO DAILY 02/07/19 Reported Multivitamins (Multivitamin) 1 Each Tablet 1 Tab PO DAILY 12/20/17 Reported Impression . 1. Acute hypoxic respiratory failure, likely secondary to bilateral pleural effusions and abdominal process. Status post thoracentesis 10/27/2021 with 700 cc of fluid removal. Breathing better 2. The patient with abnormal CT chest and abdomen and pelvis. She has multiple hypodense lesions in the liver. She comes in with small-bowel obstruction. Peritoneal carcinomatosis is the concern. There is abnormal right upper lobe parenchymal density 3.1 cm with some calcification. This was also present in imaging study from 2018 and is likely benign. She did have a liver biopsy and I have not seen the outpatient results yet. 3. Small-bowel obstruction and liver lesions. Status post expiratory laparotomy 10/27/2021 with omental biopsy 4. Forty-five years of tobaccoism. Likely underlying chronic obstructive pulmonary disease. 5. Bilateral pleural effusions seen on the CT chest, more on the right than on the left, likely secondary to low oncotic pressure. Cannot exclude malignant effusion. 6. Severe hypoalbuminemia contributing to low oncotic pressure and pleural effusions. Plan . RECOMMENDATIONS: 1. Status post thoracentesis on the right side. Feels better. 700 cc fluid removed. Await analysis. 2. Status post expiratory laparotomy with omental biopsy await final pathology 3. We will monitor chest x-ray for ruling out any recurrent effusions. 4. Follow general surgery recommendations. 5. Improve nutritional status. Her albumin is only 1.6 and contributing to the pleural effusions. 6. Follow up final liver biopsy results. 7. Discussed with JENNIE. ZUNILDA RANGEL MD Oct 28, 2021 10:02
--- NOTE | 2021-10-28 10:41 | PDOC ---
SONYA GARVIN BARIATRIC COORDINATOR 10/28/21 1041: CARDIO Progress Notes Date and Time Date of Service 10/28/21 Time of Evaluation 1030 Subjective Subjective: No Chest Pain, No shortness of breath, No Dizziness Vitals Vitals Vital Signs Date Time Temp Pulse Resp B/P (MAP) Pulse Ox O2 Delivery O2 Flow Rate FiO2 10/28/21 10:02 95 Nasal Cannula 3.0 10/28/21 07:00 99.2 99 16 125/56 (79) 99.2 Weight Weight [ ] Input and Output Intake and Output Intake and Output 10/28/21 07:00 Intake Total 3712 ml Output Total 1700 ml Balance 2012 ml Intake Oral 0 ml IV Total 3712 ml Output Urine Total 600 ml Gastric Drainage Total 350 ml Drainage Total 700 ml Estimated Blood Loss 50 ml Laboratory Labs Laboratory Tests Test 10/27/21 11:51 10/27/21 18:22 10/28/21 06:29 10/28/21 06:30 Glucose (Fingerstick) 150 mg/dL (70-99) 143 mg/dL (70-99) 153 mg/dL (70-99) Sodium Level 140 mmol/L (136-145) Potassium Level 4.5 mmol/L (3.5-5.1) Chloride Level 108 mmol/L (98-107) Carbon Dioxide Level 30 mmol/L (21-32) Anion Gap 2 (6-14) Blood Urea Nitrogen 29 mg/dL (7-20) Creatinine 1.4 mg/dL (0.6-1.0) Estimated GFR (Cockcroft-Gault) 35.9 Glucose Level 158 mg/dL (70-99) Calcium Level 7.5 mg/dL (8.5-10.1) Phosphorus Level 3.0 mg/dL (2.6-4.7) Magnesium Level 2.2 mg/dL (1.8-2.4) Microbiology Micro Microbiology 10/27/21 Gram Stain - Final, Resulted 10/27/21 Aerobic and Anaerobic Culture - Preliminary, Resulted 10/19/21 Blood Culture - Final, Complete NO GROWTH AFTER 5 DAYS Review of Systems Constitutional: yes: weakness, alert, oriented Ears/Nose/Throat: Yes: no symptom reported Eyes: Yes: no symptom reported Pulmonary: Yes no symptom reported Cardiovascular: Yes no symptom reported Gastrointestional: Yes: nausea, abdominal pain Genitourinary: Yes: no symptom reported Musculoskeletal: Yes: no symptom reported Skin: Yes no symptom reported Psychiatric/Neurological: Yes: no symptom reported Endocrine: Yes: no symptom reported Physical Exam HEENT: Neck Supple W Full Motion, Other (NGT) Chest: Symmetric LUNGS: Clear to Auscultation Heart: RRR Abdomen: Other (abdominal binder in place, g-tube) Extremities: No Edema Neurology: alert, oriented, follow commands Assessment Assessment 1. Abdominal pain/diarrhea: SBO with liver lesions. metastatic disease suspected, althoug liver biopsy path reportedly benign. s/p expiratory laparotomy with biopsy- path pending 2. Arrhythmia: episode of PAFIB- converted to SR/ST with digoxin and has been maintaining. likely precipitated by above. Continue metoprolol for rate control 3. Acute respiratory failure, bilateral pleural effusion. multifactorial. s/p thoracentesis with 700cc off 3. Chronic diastolic CHF: compensated 4. HTN: Controlled Justicifation of Admission Dx: Justifications for Admission: Justification of Admission Dx: Yes RANJAN LUO MD 10/28/21 1624: CARDIO Progress Notes Assessment Assessment Patient seen and examined Status post surgery as noted above. I agree with our nurse practitioners assessment and plan. Abdominal pain/diarrhea: SBO with liver lesions. metastatic disease suspected, althoug liver biopsy path reportedly benign. s/p expiratory laparotomy with biopsy. As per the surgical service. Arrhythmia: episode of PAFIB- converted to SR/ST with digoxin and has been maintaining. likely precipitated by above. Continue metoprolol for rate control Acute respiratory failure, bilateral pleural effusion. multifactorial. s/p thoracentesis with 700cc off Chronic diastolic CHF: compensated HTN: Controlled SONYA GARVIN APRN Oct 28, 2021 10:41 RANJAN LUO MD Oct 28, 2021 16:24
--- NOTE | 2021-10-28 11:48 | NUR ---
SS following up with discharge planning. SS reviewed pt chart and discussed with pt RN. Pt is currently requiring oxygen at three liters nasal canula. NG tube in place. Pt had surgery on 10/28/2021. Surgery to follow. Pt's family considering hospice. SS met with pt's family and discussed. Pt does not have Medicaid. SS discussed room and board cost if considering facility with hospice as pt's family is stating that pt is not safe to return to home with hospice. Pt's family concerned with facility cost and are discussing options. Pt to have NG removed in 1-2 days. SS will continue to follow for discharge planning.
[2021-10-28] MEDS: TPN PER PHARMACY MC PRN (15:48)
--- NOTE | 2021-10-28 15:54 | NUR ---
Pharmacy TPN Dosing Note S: OLI MARISCAL is a 81 year old F Currently receiving Central Continuous TPN started 10/26/21 B:Pertinent PMH: bowel obstruction Height: 5 feet, 5 inches Weight: 76.6 kg Current diet: npo LABS: Sodium: 140 Potassium: 4.5 Chloride: 108 Calcium: 7.5 Corrected Calcium: 9.42 Magnesium: 2.2 CO2: 30 SCr: 1.4 Glucose: 131-158 Albumin: 1.6 AST: 22 ALT: 26 TPN FORMULA: TPN TYPE: Central Continuous AMINO ACIDS: 65 gm DEXTROSE: 215 gm LIPIDS: 30 gm SODIUM CHLORIDE: 20 mEq POTASSIUM ACETATE: 30 mEq POTASSIUM PHOSPHATE: 13.6 mmol MAGNESIUM: 10 mEq MULTIPLE VITAMIN: 10 ml TRACE ELEMENTS: 1 ml ml(s) TPN PLAN: Macros adjusted per account auditor recs R: Change TPN per plan and ordered formula Will monitor electrolytes, glucose, and tolerance to TPN. Glendy Renteria [facility], 10/28/21 [id number]
[2021-10-28] MEDS: IV NORMAL SALINE 1000ML BAG 1,000 ML IV SCH (20:30)
[2021-10-28] MEDS ORDERED: [UNRECOGNIZED DRUG - OTHER] IV SCH (22:00)
[2021-10-28] MEDS ORDERED: DEXTROSE 70% IV SCH (22:00)
[2021-10-28] MEDS ORDERED: AMINO ACID IV SCH (22:00)
[2021-10-28] MEDS ORDERED: TOTAL PARENTERAL NUTRITION IV SCH (22:00)
[2021-10-29] MEDS: METOPROLOL IV PUSH 5 MG/5 ML VIAL. IVP SCH ×4 (00:34→17:37)
[2021-10-29] MEDS: ONDANSETRON PF 4 MG/2 ML VIAL. IVP PRN ×2 (00:34→15:42)
[2021-10-29] MEDS: MORPHINE SULFATE 2 MG/ML INJ. IVP PRN ×4 (00:35→21:04)
[2021-10-29 02:09] VITALS: BP 136/58
[2021-10-29] MEDS: INSULIN LISPRO 300 UNITS/3 ML VIAL. SQ SCH ×4 (05:33→17:46)
[2021-10-29] MEDS: PROCHLORPERAZINE 10 MG/2 ML VIAL. IV PRN ×2 (06:16→21:04)
[2021-10-29] MEDS: PANTOPRAZOLE IV PUSH 40 MG VIAL. IVP SCH ×2 (06:17→17:36)
[2021-10-29 06:57] LABS: CALCIUM 7.8 mg/dL (8.5-10.1); CREATININE 1.5 mg/dL (0.6-1.0); GFR 33.2; MAGNESIUM 2.5 mg/dL (1.8-2.4); PHOSPHORUS 3.6 mg/dL (2.6-4.7); POTASSIUM 4.8 mmol/L (3.5-5.1)
[2021-10-29 07:00] VITALS: BP 143/66
[2021-10-29] MEDS: IPRATRPIUM/ALBUTEROL 0.5/2.5MG 3 ML NEBU. NEB SCH ×3 (07:51→20:00)
[2021-10-29] MEDS: BUDESONIDE 0.5 MG/2 ML NEBU. NEB SCH ×2 (07:51→20:00)
--- NOTE | 2021-10-29 09:28 | PDOC ---
PULMONARY PROGRESS NOTES DATE: 10/29/21 TIME: 09:25 Subjective Patient is resting on 3 L nasal cannula, reports that her breathing is significantly better post thoracentesis Afebrile, NG in place Remains weak, no overnight concerns from nursing Vitals Vital Signs Date Time Temp Pulse Resp B/P (MAP) Pulse Ox O2 Delivery O2 Flow Rate FiO2 10/29/21 07:53 98 Nasal Cannula 3.0 10/29/21 07:00 98.7 95 16 143/66 (91) 98.7 ROS: No Chest Pain, No Increase Cough General: Alert, Oriented X4, No acute distress Lungs: Clear Abdomen: Soft, Non-tender Extremities: Other (1+ edema) Skin: Warm, Dry Labs Laboratory Tests Test 10/27/21 09:50 10/27/21 11:51 10/27/21 18:22 10/28/21 06:29 Prothrombin Time 14.0 SEC (11.7-14.0) Prothromb Time International Ratio 1.1 (0.8-1.1) Activated Partial Thromboplast Time 34 SEC (24-38) Glucose (Fingerstick) 150 mg/dL (70-99) 143 mg/dL (70-99) 153 mg/dL (70-99) Test 10/28/21 06:30 10/28/21 11:25 10/28/21 18:19 10/29/21 00:18 Sodium Level 140 mmol/L (136-145) Potassium Level 4.5 mmol/L (3.5-5.1) Chloride Level 108 mmol/L (98-107) Carbon Dioxide Level 30 mmol/L (21-32) Anion Gap 2 (6-14) Blood Urea Nitrogen 29 mg/dL (7-20) Creatinine 1.4 mg/dL (0.6-1.0) Estimated GFR (Cockcroft-Gault) 35.9 Glucose Level 158 mg/dL (70-99) Calcium Level 7.5 mg/dL (8.5-10.1) Phosphorus Level 3.0 mg/dL (2.6-4.7) Magnesium Level 2.2 mg/dL (1.8-2.4) Glucose (Fingerstick) 131 mg/dL (70-99) 119 mg/dL (70-99) 126 mg/dL (70-99) Test 10/29/21 06:30 Sodium Level 142 mmol/L (136-145) Potassium Level 4.8 mmol/L (3.5-5.1) Chloride Level 106 mmol/L (98-107) Carbon Dioxide Level 29 mmol/L (21-32) Anion Gap 7 (6-14) Blood Urea Nitrogen 36 mg/dL (7-20) Creatinine 1.5 mg/dL (0.6-1.0) Estimated GFR (Cockcroft-Gault) 33.2 Glucose Level 158 mg/dL (70-99) Calcium Level 7.8 mg/dL (8.5-10.1) Phosphorus Level 3.6 mg/dL (2.6-4.7) Magnesium Level 2.5 mg/dL (1.8-2.4) Laboratory Tests Test 10/28/21 11:25 10/28/21 18:19 10/29/21 00:18 10/29/21 06:30 Glucose (Fingerstick) 131 mg/dL (70-99) 119 mg/dL (70-99) 126 mg/dL (70-99) Sodium Level 142 mmol/L (136-145) Potassium Level 4.8 mmol/L (3.5-5.1) Chloride Level 106 mmol/L (98-107) Carbon Dioxide Level 29 mmol/L (21-32) Anion Gap 7 (6-14) Blood Urea Nitrogen 36 mg/dL (7-20) Creatinine 1.5 mg/dL (0.6-1.0) Estimated GFR (Cockcroft-Gault) 33.2 Glucose Level 158 mg/dL (70-99) Calcium Level 7.8 mg/dL (8.5-10.1) Phosphorus Level 3.6 mg/dL (2.6-4.7) Magnesium Level 2.5 mg/dL (1.8-2.4) Medications Active Scripts Medications Dose Route/Sig Max Daily Dose Days Date Category Dose Instructions Ondansetron Odt (Ondansetron) 4 Mg Tab.rapdis 1 Tab PO PRN Q6-8HRS 10/14/21 Rx Dicyclomine Hcl 10 Mg Capsule 10 Mg PO PRN QID PRN 10/14/21 Rx Stool Softener (Docusate Sodium) 50 Mg Capsule 1 Cap PO DAILY PRN 30 10/04/21 Reported Tylenol (Acetaminophen) 325 Mg Tablet 1-2 Tab PO HS 10/04/21 Reported Perphen-Amitrip 2 Mg-10 Mg Tab (Perphenazine/Amitriptyline Hcl) 1 Each Tablet 1 Tab PO QHS 10/04/21 Reported Methotrexate (Methotrexate Sodium) 2.5 Mg Tablet 10 Tab PO Tuesday10/04/21 Reported Folic Acid 0.8 Mg Capsule 1 Cap PO DAILY 30 10/04/21 Reported Vitamin D3 (Vitamin D) 25 Mcg Tablet 25 Mcg PO DAILY 10/04/21 Reported 1,000 UNITS = 25 MCG Amlodipine Besylate 2.5 Mg Tablet 2.5 Mg PO DAILY 02/07/19 Reported Vit C-Quyen Hips 500 mg Chew Tb (Ascorbic Acid/Ascorbate Sodium) 500 Mg Tab.chew 500 Mg PO DAILY 02/07/19 Reported Probiotic Acidophilus (Lactobacillus Acidophilus) 1 Each Tablet 1 Each PO DAILY 02/07/19 Reported Metoprolol Tartrate 50 Mg Tablet 50 Mg PO BID 02/07/19 Reported Omeprazole 20 Mg Tablet.dr 20 Mg PO DAILY 02/07/19 Reported Multivitamins (Multivitamin) 1 Each Tablet 1 Tab PO DAILY 12/20/17 Reported Impression . 1. Acute hypoxic respiratory failure, likely secondary to bilateral pleural effusions and abdominal process. Status post thoracentesis 10/27/2021 with 700 cc of fluid removal. 2. The patient with abnormal CT chest and abdomen and pelvis. She has multiple hypodense lesions in the liver. She comes in with small-bowel obstruction. Peritoneal carcinomatosis is the concern. There is abnormal right upper lobe parenchymal density 3.1 cm with some calcification. This was also present in imaging study from 2018 and is likely benign. She did have a liver biopsy and I have not seen the outpatient results yet. 3. Small-bowel obstruction and liver lesions. Status post expiratory laparotomy 10/27/2021 with omental biopsy 4. Forty-five years of tobaccoism. Likely underlying chronic obstructive pulmonary disease. 5. Bilateral pleural effusions seen on the CT chest, more on the right than on the left, likely secondary to low oncotic pressure. Cannot exclude malignant effusion. 6. Severe hypoalbuminemia contributing to low oncotic pressure and pleural effusions. Plan . Updated 10/01/2021 Continue supplemental oxygen to keep oxygen saturations greater than 92% Status post right-sided thoracentesis 10/28/2021 with 700 cc fluid removed, follow fluid analysis Follow surgery recommendations, status post exploratory laparotomy with omental biopsy follow-up pathology Follow-up final liver biopsy results I-S at bedside Consulted dietitian for severe protein calorie malnutrition, continue TPN for nutritional support DVT/GI prophylaxis Discussed with RN RECOMMENDATIONS: 1. Status post thoracentesis on the right side. Feels better. 700 cc fluid removed. Await analysis. 2. Status post expiratory laparotomy with omental biopsy await final pathology 3. We will monitor chest x-ray for ruling out any recurrent effusions. 4. Follow general surgery recommendations. 5. Improve nutritional status. Her albumin is only 1.6 and contributing to the pleural effusions. 6. Follow up final liver biopsy results. 7. Discussed with RN. ZUNILDA RANGEL MD Oct 29, 2021 09:28
--- NOTE | 2021-10-29 09:54 | PDOC ---
SURGICAL PROGRESS NOTE DATE: 10/29/21 TIME: 09:53 Subjective does not feel well no bowel function Vital Signs Vital Signs Date Time Temp Pulse Resp B/P (MAP) Pulse Ox O2 Delivery O2 Flow Rate FiO2 10/29/21 08:00 Nasal Cannula 2.0 10/29/21 07:53 98 10/29/21 07:00 98.7 95 16 143/66 (91) 98.7 I&O Intake and Output 10/29/21 07:00 Intake Total 50 ml Output Total 600 ml Balance -550 ml Intake Oral 50 ml Output Urine Total 300 ml Drainage Total 300 ml General: Cooperative, Other (ill appearing ) HEENT: Other (ng) Abdomen: Soft, Other (g tube) Labs Laboratory Tests Test 10/27/21 11:51 10/27/21 18:22 10/28/21 06:29 10/28/21 06:30 Glucose (Fingerstick) 150 mg/dL (70-99) 143 mg/dL (70-99) 153 mg/dL (70-99) Sodium Level 140 mmol/L (136-145) Potassium Level 4.5 mmol/L (3.5-5.1) Chloride Level 108 mmol/L (98-107) Carbon Dioxide Level 30 mmol/L (21-32) Anion Gap 2 (6-14) Blood Urea Nitrogen 29 mg/dL (7-20) Creatinine 1.4 mg/dL (0.6-1.0) Estimated GFR (Cockcroft-Gault) 35.9 Glucose Level 158 mg/dL (70-99) Calcium Level 7.5 mg/dL (8.5-10.1) Phosphorus Level 3.0 mg/dL (2.6-4.7) Magnesium Level 2.2 mg/dL (1.8-2.4) Test 10/28/21 11:25 10/28/21 18:19 10/29/21 00:18 10/29/21 06:30 Glucose (Fingerstick) 131 mg/dL (70-99) 119 mg/dL (70-99) 126 mg/dL (70-99) Sodium Level 142 mmol/L (136-145) Potassium Level 4.8 mmol/L (3.5-5.1) Chloride Level 106 mmol/L (98-107) Carbon Dioxide Level 29 mmol/L (21-32) Anion Gap 7 (6-14) Blood Urea Nitrogen 36 mg/dL (7-20) Creatinine 1.5 mg/dL (0.6-1.0) Estimated GFR (Cockcroft-Gault) 33.2 Glucose Level 158 mg/dL (70-99) Calcium Level 7.8 mg/dL (8.5-10.1) Phosphorus Level 3.6 mg/dL (2.6-4.7) Magnesium Level 2.5 mg/dL (1.8-2.4) Laboratory Tests Test 10/28/21 11:25 10/28/21 18:19 10/29/21 00:18 10/29/21 06:30 Glucose (Fingerstick) 131 mg/dL (70-99) 119 mg/dL (70-99) 126 mg/dL (70-99) Sodium Level 142 mmol/L (136-145) Potassium Level 4.8 mmol/L (3.5-5.1) Chloride Level 106 mmol/L (98-107) Carbon Dioxide Level 29 mmol/L (21-32) Anion Gap 7 (6-14) Blood Urea Nitrogen 36 mg/dL (7-20) Creatinine 1.5 mg/dL (0.6-1.0) Estimated GFR (Cockcroft-Gault) 33.2 Glucose Level 158 mg/dL (70-99) Calcium Level 7.8 mg/dL (8.5-10.1) Phosphorus Level 3.6 mg/dL (2.6-4.7) Magnesium Level 2.5 mg/dL (1.8-2.4) Problem List Problems Medical Problems: (1) Acute on chronic renal insufficiency Status: Acute (2) Ascites Status: Acute (3) Chronic diarrhea Status: Acute (4) Chronic vomiting Status: Acute (5) Partial small bowel obstruction Status: Acute Assessment/Plan will dc ng, place g tube to suction supportive care Justicifation of Admission Dx: Justifications for Admission: Justification of Admission Dx: Yes MINGO CERVANTES APRN Oct 29, 2021 09:54
--- NOTE | 2021-10-29 10:03 | PDOC ---
Date of Service: DATE: 10/29/21 TIME: 09:59 Subjective: Subjective: Tired. I asked what she and family decided - she said "give me time." Objective: Objective: D/w nurse - family/pt looking to proceed w/ Hospice - financial limitations - possible inpt Hospice best option - pt a little fuzzy, suspect from morphine - ~400cc out from NGT overnight, plans to remove in a couple days? Vital Signs: Vital Signs Date Time Temp Pulse Resp B/P (MAP) Pulse Ox O2 Delivery O2 Flow Rate FiO2 10/29/21 08:00 Nasal Cannula 2.0 10/29/21 07:53 98 10/29/21 07:00 98.7 95 16 143/66 (91) 98.7 Labs: Laboratory Tests Test 10/28/21 11:25 10/28/21 18:19 10/29/21 00:18 10/29/21 06:30 Glucose (Fingerstick) 131 mg/dL 119 mg/dL 126 mg/dL Sodium Level 142 mmol/L Potassium Level 4.8 mmol/L Chloride Level 106 mmol/L Carbon Dioxide Level 29 mmol/L Anion Gap 7 Blood Urea Nitrogen 36 mg/dL Creatinine 1.5 mg/dL Estimated GFR (Cockcroft-Gault) 33.2 Glucose Level 158 mg/dL Calcium Level 7.8 mg/dL Phosphorus Level 3.6 mg/dL Magnesium Level 2.5 mg/dL PE: GEN: appears chronically ill LUNGS: diminished, NC HEART: RRR ABD: abd binder, NG bilious NEURO/PSYCH: lethargic, drowsy A/P: SBO, carcinomatosis, s/p ex lap w/ omental and liver biopsies (pending), G tube placement -- Since I have seen, plans to remove NG and try G tube to LIS. Await disposition plans - Hospice discussion ongoing. Justicifation of Admission Dx: Justifications for Admission: Justification of Admission Dx: Yes IRASEMA MCCARTY Oct 29, 2021 10:03
--- NOTE | 2021-10-29 10:56 | PDOC ---
CARDIO Progress Notes Date and Time Date of Service 10/29/21 Time of Evaluation 1015 Subjective Subjective: No Chest Pain, No shortness of breath, No Palpitations, No Dizziness, Other (wants NGT out) Vitals Vitals Vital Signs Date Time Temp Pulse Resp B/P (MAP) Pulse Ox O2 Delivery O2 Flow Rate FiO2 10/29/21 08:00 Nasal Cannula 2.0 10/29/21 07:53 98 10/29/21 07:00 98.7 95 16 143/66 (91) 98.7 Weight Weight [ ] Input and Output Intake and Output Intake and Output 10/29/21 07:00 Intake Total 50 ml Output Total 600 ml Balance -550 ml Intake Oral 50 ml Output Urine Total 300 ml Drainage Total 300 ml Laboratory Labs Laboratory Tests Test 10/28/21 11:25 10/28/21 18:19 10/29/21 00:18 10/29/21 06:30 Glucose (Fingerstick) 131 mg/dL (70-99) 119 mg/dL (70-99) 126 mg/dL (70-99) Sodium Level 142 mmol/L (136-145) Potassium Level 4.8 mmol/L (3.5-5.1) Chloride Level 106 mmol/L (98-107) Carbon Dioxide Level 29 mmol/L (21-32) Anion Gap 7 (6-14) Blood Urea Nitrogen 36 mg/dL (7-20) Creatinine 1.5 mg/dL (0.6-1.0) Estimated GFR (Cockcroft-Gault) 33.2 Glucose Level 158 mg/dL (70-99) Calcium Level 7.8 mg/dL (8.5-10.1) Phosphorus Level 3.6 mg/dL (2.6-4.7) Magnesium Level 2.5 mg/dL (1.8-2.4) Microbiology Micro Microbiology 10/27/21 Gram Stain - Final, Resulted 10/27/21 Aerobic and Anaerobic Culture - Preliminary, Resulted 10/19/21 Blood Culture - Final, Complete NO GROWTH AFTER 5 DAYS Review of Systems Constitutional: yes: weakness, alert, oriented Ears/Nose/Throat: Yes: no symptom reported Eyes: Yes: no symptom reported Pulmonary: Yes no symptom reported Cardiovascular: Yes no symptom reported Gastrointestional: Yes: nausea, abdominal pain Genitourinary: Yes: no symptom reported Musculoskeletal: Yes: no symptom reported Skin: Yes no symptom reported Psychiatric/Neurological: Yes: no symptom reported Endocrine: Yes: no symptom reported Physical Exam HEENT: Neck Supple W Full Motion, Other (NGT) Chest: Symmetric LUNGS: Clear to Auscultation Heart: RRR (SR/ST) Abdomen: Other (abdominal binder in place, g-tube) Extremities: No Edema Neurology: alert, oriented, follow commands Assessment Assessment 1. Abdominal pain/diarrhea: suspected peritoneal carcinomatosis. SBO with liver lesions. metastatic disease suspected, although liver biopsy path reportedly benign. s/p expiratory laparotomy with biopsy- path pending. as per GS team 2. Arrhythmia: episode of PAFIB- converted to SR/ST with digoxin and has been maintaining other that brief burst on 10/27/21. likely precipitated by above. Continue metoprolol for rate control 3. Acute respiratory failure, bilateral pleural effusion. multifactorial. s/p thoracentesis with 700cc off 3. Chronic diastolic CHF: compensated 4. HTN: Controlled Justicifation of Admission Dx: Justifications for Admission: Justification of Admission Dx: Yes SONYA GARVIN APRN Oct 29, 2021 10:56
[2021-10-29 11:00] VITALS: BP 135/60
[2021-10-29] MEDS: TPN PER PHARMACY MC PRN (11:29)
--- NOTE | 2021-10-29 11:33 | NUR ---
Pharmacy TPN Dosing Note S: OLI MARISCAL is a 81 year old F Currently receiving Central Continuous TPN started 10/26/21 B:Pertinent PMH: bowel obstruction Height: 5 feet, 5 inches Weight: 76.2 kg Current diet: npo LABS: Sodium: 142 Potassium: 4.8 Chloride: 106 Calcium: 7.8 Corrected Calcium: 9.72 Magnesium: 2.5 CO2: 29 SCr: 1.5 Glucose: 119-158 Albumin: 1.6 AST: 22 ALT: 26 TPN FORMULA: TPN TYPE: Central Continuous AMINO ACIDS: 65 gm DEXTROSE: 215 gm LIPIDS: 30 gm SODIUM CHLORIDE: 20 mEq POTASSIUM ACETATE: 20 mEq POTASSIUM PHOSPHATE: 13.6 mmol MAGNESIUM: 5 mEq MULTIPLE VITAMIN: 10 ml TRACE ELEMENTS: 1 ml ml(s) TPN PLAN: Mag reduced to 5mEq/bag and potassium acetate reduced to 20mEq/bag Repeat labs ordered R: Change TPN per plan and ordered formula Will monitor electrolytes, glucose, and tolerance to TPN. Glendy Renteria [facility], 10/29/21 1137
--- NOTE | 2021-10-29 12:24 | PDOC ---
[employer] PROGRESS NOTE Date of Service DOS: DATE: 10/29/21 TIME: 12:20 Chief Complaint Chief Complaint SBO Right pleural effusion Status post liver biopsy Peritoneal seeding suspect cancer Nausea vomiting Anxiety, anemia, diverticulitis, hypertension, renal failure, UTI, mitral valve prolapse, cataracts, colostomy, hysterectomy, previous tobacco abuse. History of Present Illness History of Present Illness 10/29: Seen postop day 2. NG tube pulled per surgery gastrostomy tube to suction. No bowel activity. Labs relatively stable will check hemogram and labs given the morning. She has had some nausea and pain. Long discussion with family and patient about goals of care if pathology comes back with suspected peritoneal carcinomatosis. And they would prefer inpatient hospice care if that is the case. They would like time which is appropriate given her recent surgery. 10/28: Seen postop day 1. Shortness of breath is improved. Still with significant NG tube output. Pain is reasonably controlled. Based on the findings I have discussed potential positive care hospice on discharge with family. 10/27: Seen bedside. More dyspneic. No CP. Abdominal pain is 4-10. NG tube suction. To IR for 800cc drain right pleural effusion Consult pulmonology. To OR for omental biopsy lap lysis of lesions and gastrostomy tube 10/26: Patient seen and examined. PICC line and TPN 10/25: Patient seen and examined. She is alert and oriented. Still has NG to suction. Still awaiting pathology report. 10/24: Patient seen and examined. She is resting with no apparent distress. Pathology results still pending 10/23: Patient seen and examined She is on D5 half-normal Chart reviewed Discussed with RN Discussed with case management I spoke with Dr. Banegas he is working on getting the pathology report done soon 10/22/2021 Patient seen and examined Discussed with RN Chart reviewed Discussed with case management I called oncology The plan is to get a liver biopsy today We suspect the elevated CA 25 level may be due to peritoneal cancer versus gastric cancer versus ovarian cancer (she has had her ovaries removed about 4 years ago however oncology explained she could still have ovarian CA) 10/21/2021 Patient seen and examined She still feels better with her NG in place CA-125 level is elevated to 582 Discussed with case management Discussed with RN 10/20/2021 Patient seen and examined We had to place an NG She states she feels better with the NG to suction Discussed with RN Chart reviewed Vitals/I&O Vitals/I&O: Vital Signs Date Time Temp Pulse Resp B/P (MAP) Pulse Ox O2 Delivery O2 Flow Rate FiO2 10/29/21 12:04 104 135/60 10/29/21 11:36 99 Nasal Cannula 3.0 10/29/21 07:00 98.7 16 98.7 I & O 10/28/21 10/28/21 10/29/21 15:00 23:00 07:00 Intake Total 0 ml 50 ml Output Total 300 ml 300 ml Balance -300 ml -250 ml Physical Exam General: Cooperative, Other (ill appearing ) Heart: Regular rate Lungs: Clear Abdomen: Soft, Other (g tube) Extremities: No cyanosis, No edema Skin: No breakdown, No significant lesion Labs Labs: Laboratory Tests Test 10/28/21 18:19 10/29/21 00:18 10/29/21 06:30 10/29/21 11:47 Glucose (Fingerstick) 119 mg/dL (70-99) 126 mg/dL (70-99) 135 mg/dL (70-99) Sodium Level 142 mmol/L (136-145) Potassium Level 4.8 mmol/L (3.5-5.1) Chloride Level 106 mmol/L (98-107) Carbon Dioxide Level 29 mmol/L (21-32) Anion Gap 7 (6-14) Blood Urea Nitrogen 36 mg/dL (7-20) Creatinine 1.5 mg/dL (0.6-1.0) Estimated GFR (Cockcroft-Gault) 33.2 Glucose Level 158 mg/dL (70-99) Calcium Level 7.8 mg/dL (8.5-10.1) Phosphorus Level 3.6 mg/dL (2.6-4.7) Magnesium Level 2.5 mg/dL (1.8-2.4) Assessment and Plan Assessmemt and Plan Problems Medical Problems: (1) Acute on chronic renal insufficiency Status: Acute (2) Ascites Status: Acute (3) Chronic diarrhea Status: Acute (4) Chronic vomiting Status: Acute (5) Partial small bowel obstruction Status: Acute Comment Review of Relevant I have reviewed the following items mariusz (where applicable) has been applied. Medications: Current Medications Medications (Trade) Dose Ordered Sig/Ella Route PRN Reason Start Time Stop Time Status Last Admin Dose Admin Sodium Chloride 20 meq/Potassium Acetate 30 meq/ Potassium Phosphate 13.6 mmol/Magnesium Sulfate 10 meq/ Multivitamins 10 ml/Zinc/Copper/ Manganese/ Selenium 1 ml/ Total Parenteral Nutrition/Amino Acids/Dextrose/ Fat Emulsion Intravenous 1,512 ml @ 63 mls/hr TPN CONT IV 10/28/21 22:00 10/29/21 21:59 10/28/21 19:35 Justifications for Admission Other Justification YUKO CARBALLO MD Oct 29, 2021 12:24
--- NOTE | 2021-10-29 14:51 | NUR ---
SS following up with discharge planning. SS reviewed pt chart and discussed with pt RN. Pt is currently requiring oxygen at three liters nasal canula. COVID19 negative. NG pulled. G tube with suction. TPN through PICC. Currently awaiting Pathology. Pt's family considering hospice if pathology comes back cancerous. SS will continue to follow for discharge planning.
[2021-10-29 15:00] VITALS: BP 144/63
--- NOTE | 2021-10-29 18:21 | NUR ---
ng tube removed this am, gtube connected to lis.
[2021-10-29 19:00] VITALS: BP 130/63
[2021-10-29] MEDS: IV NORMAL SALINE 1000ML BAG 1,000 ML IV SCH (20:30)
[2021-10-29] MEDS ORDERED: AMINO ACID IV SCH (22:00)
[2021-10-29] MEDS ORDERED: DEXTROSE 70% IV SCH (22:00)
[2021-10-29] MEDS ORDERED: TOTAL PARENTERAL NUTRITION IV SCH (22:00)
[2021-10-29] MEDS ORDERED: [UNRECOGNIZED DRUG - OTHER] IV SCH (22:00)
[2021-10-29 22:56] VITALS: BP 122/55
[2021-10-30] MEDS: METOPROLOL IV PUSH 5 MG/5 ML VIAL. IVP SCH ×4 (00:07→18:27)
[2021-10-30 02:20] VITALS: BP 128/60
[2021-10-30] MEDS: INSULIN LISPRO 300 UNITS/3 ML VIAL. SQ SCH ×4 (05:53→18:00)
[2021-10-30] MEDS: PANTOPRAZOLE IV PUSH 40 MG VIAL. IVP SCH ×2 (05:53→18:27)
[2021-10-30 07:00] VITALS: BP 142/63
[2021-10-30] MEDS: BUDESONIDE 0.5 MG/2 ML NEBU. NEB SCH ×2 (08:10→20:00)
[2021-10-30] MEDS: IPRATRPIUM/ALBUTEROL 0.5/2.5MG 3 ML NEBU. NEB SCH ×4 (08:10→20:00)
--- NOTE | 2021-10-30 09:12 | PDOC ---
SURGICAL PROGRESS NOTE DATE: 10/30/21 TIME: 09:11 Subjective resting pain and nausea Vital Signs Vital Signs Date Time Temp Pulse Resp B/P (MAP) Pulse Ox O2 Delivery O2 Flow Rate FiO2 10/30/21 08:12 97 Nasal Cannula 3.0 10/30/21 07:00 97.3 92 20 142/63 (89) 97.3 I&O Intake and Output 10/30/21 07:00 Intake Total 50 ml Output Total 725 ml Balance -675 ml Intake Oral 50 ml Output Urine Total 525 ml Drainage Total 200 ml General: Other (ill appearing ) Abdomen: Soft, Other (g tube in place) Labs Laboratory Tests Test 10/28/21 11:25 10/28/21 18:19 10/29/21 00:18 10/29/21 06:30 Glucose (Fingerstick) 131 mg/dL (70-99) 119 mg/dL (70-99) 126 mg/dL (70-99) Sodium Level 142 mmol/L (136-145) Potassium Level 4.8 mmol/L (3.5-5.1) Chloride Level 106 mmol/L (98-107) Carbon Dioxide Level 29 mmol/L (21-32) Anion Gap 7 (6-14) Blood Urea Nitrogen 36 mg/dL (7-20) Creatinine 1.5 mg/dL (0.6-1.0) Estimated GFR (Cockcroft-Gault) 33.2 Glucose Level 158 mg/dL (70-99) Calcium Level 7.8 mg/dL (8.5-10.1) Phosphorus Level 3.6 mg/dL (2.6-4.7) Magnesium Level 2.5 mg/dL (1.8-2.4) Test 10/29/21 11:47 10/29/21 18:45 10/30/21 00:10 10/30/21 05:47 Glucose (Fingerstick) 135 mg/dL (70-99) 147 mg/dL (70-99) 138 mg/dL (70-99) 155 mg/dL (70-99) Laboratory Tests Test 10/29/21 11:47 10/29/21 18:45 10/30/21 00:10 10/30/21 05:47 Glucose (Fingerstick) 135 mg/dL (70-99) 147 mg/dL (70-99) 138 mg/dL (70-99) 155 mg/dL (70-99) Problem List Problems Medical Problems: (1) Acute on chronic renal insufficiency Status: Acute (2) Ascites Status: Acute (3) Chronic diarrhea Status: Acute (4) Chronic vomiting Status: Acute (5) Partial small bowel obstruction Status: Acute Assessment/Plan supportive care Justicifation of Admission Dx: Justifications for Admission: Justification of Admission Dx: Yes MINGO CERVANTES APRN Oct 30, 2021 09:12
--- NOTE | 2021-10-30 09:20 | PDOC ---
Date of Service: DATE: 10/30/21 TIME: 09:17 Subjective: Subjective: Sore. Says she was "loopy" with morphine. Objective: Objective: NG removed yesterday, G tube to LIS. Vital Signs: Vital Signs Date Time Temp Pulse Resp B/P (MAP) Pulse Ox O2 Delivery O2 Flow Rate FiO2 10/30/21 08:12 97 Nasal Cannula 3.0 10/30/21 07:00 97.3 92 20 142/63 (89) 97.3 Labs: Laboratory Tests Test 10/29/21 11:47 10/29/21 18:45 10/30/21 00:10 10/30/21 05:47 Glucose (Fingerstick) 135 mg/dL (70-99) 147 mg/dL (70-99) 138 mg/dL (70-99) 155 mg/dL (70-99) PE: GEN: chronically ill in appearance LUNGS: some diminished, NC 3L HEART: irregular ABD: abd binder and dressing, G tube bilious NEURO/PSYCH: A & O 3 - much more alert today A/P: SBO, carcinomatosis S/p ex lap w/ omental and liver biopsies, G tube placement -- Path still pending, possible Hospice. Supportive care from GI standpoint. Justicifation of Admission Dx: Justifications for Admission: Justification of Admission Dx: Yes IRASEMA MCCARTY Oct 30, 2021 09:20
--- NOTE | 2021-10-30 09:24 | PDOC ---
PULMONARY PROGRESS NOTES DATE: 10/30/21 TIME: 09:23 Subjective Patient is resting comfortably on 2 L nasal cannula, remains weak/fatigued, denies any shortness of breath or cough No overnight concerns from nursing Vitals Vital Signs Date Time Temp Pulse Resp B/P (MAP) Pulse Ox O2 Delivery O2 Flow Rate FiO2 10/30/21 08:12 97 Nasal Cannula 3.0 10/30/21 07:00 97.3 92 20 142/63 (89) 97.3 ROS: No Nausea, No Chest Pain, No Abdominal Pain, No Increase Cough General: Alert, Oriented X4, No acute distress Lungs: Clear Abdomen: Soft, Non-tender Extremities: No Edema, Other Skin: Warm, Dry Labs Laboratory Tests Test 10/28/21 11:25 10/28/21 18:19 10/29/21 00:18 10/29/21 06:30 Glucose (Fingerstick) 131 mg/dL (70-99) 119 mg/dL (70-99) 126 mg/dL (70-99) Sodium Level 142 mmol/L (136-145) Potassium Level 4.8 mmol/L (3.5-5.1) Chloride Level 106 mmol/L (98-107) Carbon Dioxide Level 29 mmol/L (21-32) Anion Gap 7 (6-14) Blood Urea Nitrogen 36 mg/dL (7-20) Creatinine 1.5 mg/dL (0.6-1.0) Estimated GFR (Cockcroft-Gault) 33.2 Glucose Level 158 mg/dL (70-99) Calcium Level 7.8 mg/dL (8.5-10.1) Phosphorus Level 3.6 mg/dL (2.6-4.7) Magnesium Level 2.5 mg/dL (1.8-2.4) Test 10/29/21 11:47 10/29/21 18:45 10/30/21 00:10 10/30/21 05:47 Glucose (Fingerstick) 135 mg/dL (70-99) 147 mg/dL (70-99) 138 mg/dL (70-99) 155 mg/dL (70-99) Laboratory Tests Test 10/29/21 11:47 10/29/21 18:45 10/30/21 00:10 10/30/21 05:47 Glucose (Fingerstick) 135 mg/dL (70-99) 147 mg/dL (70-99) 138 mg/dL (70-99) 155 mg/dL (70-99) Medications Active Scripts Medications Dose Route/Sig Max Daily Dose Days Date Category Dose Instructions Ondansetron Odt (Ondansetron) 4 Mg Tab.rapdis 1 Tab PO PRN Q6-8HRS 10/14/21 Rx Dicyclomine Hcl 10 Mg Capsule 10 Mg PO PRN QID PRN 10/14/21 Rx Stool Softener (Docusate Sodium) 50 Mg Capsule 1 Cap PO DAILY PRN 30 10/04/21 Reported Tylenol (Acetaminophen) 325 Mg Tablet 1-2 Tab PO HS 10/04/21 Reported Perphen-Amitrip 2 Mg-10 Mg Tab (Perphenazine/Amitriptyline Hcl) 1 Each Tablet 1 Tab PO QHS 10/04/21 Reported Methotrexate (Methotrexate Sodium) 2.5 Mg Tablet 10 Tab PO Tuesday10/04/21 Reported Folic Acid 0.8 Mg Capsule 1 Cap PO DAILY 30 10/04/21 Reported Vitamin D3 (Vitamin D) 25 Mcg Tablet 25 Mcg PO DAILY 10/04/21 Reported 1,000 UNITS = 25 MCG Amlodipine Besylate 2.5 Mg Tablet 2.5 Mg PO DAILY 02/07/19 Reported Vit C-Quyen Hips 500 mg Chew Tb (Ascorbic Acid/Ascorbate Sodium) 500 Mg Tab.chew 500 Mg PO DAILY 02/07/19 Reported Probiotic Acidophilus (Lactobacillus Acidophilus) 1 Each Tablet 1 Each PO DAILY 02/07/19 Reported Metoprolol Tartrate 50 Mg Tablet 50 Mg PO BID 02/07/19 Reported Omeprazole 20 Mg Tablet.dr 20 Mg PO DAILY 02/07/19 Reported Multivitamins (Multivitamin) 1 Each Tablet 1 Tab PO DAILY 12/20/17 Reported Impression . 1. Acute hypoxic respiratory failure, likely secondary to bilateral pleural effusions and abdominal process. Status post thoracentesis 10/27/2021 with 700 cc of fluid removal. --- Improving 2. The patient with abnormal CT chest and abdomen and pelvis. She has multiple hypodense lesions in the liver. She comes in with small-bowel obstruction. Peritoneal carcinomatosis is the concern. There is abnormal right upper lobe parenchymal density 3.1 cm with some calcification. This was also present in imaging study from 2018 and is likely benign. She did have a liver biopsy and I have not seen the outpatient results yet. 3. Small-bowel obstruction and liver lesions. Status post expiratory laparotomy 10/27/2021 with omental biopsy 4. Forty-five years of tobaccoism. Likely underlying chronic obstructive pulmonary disease. 5. Bilateral pleural effusions seen on the CT chest, more on the right than on the left, likely secondary to low oncotic pressure. Cannot exclude malignant effusion. 6. Severe hypoalbuminemia contributing to low oncotic pressure and pleural effusions. Plan . Updated 10/02/2021 Continue supplemental oxygen to keep oxygen saturations greater than 92%, wean as tolerated Status post right-sided thoracentesis 10/28/2021 with 700 cc fluid removed, follow fluid analysis Nebs as needed Follow surgery recommendations, status post exploratory laparotomy with omental biopsy follow-up pathology Follow-up final liver biopsy results I-S at bedside Continue TPN for nutritional support DVT/GI prophylaxis Discussed with RN Updated 10/01/2021 Continue supplemental oxygen to keep oxygen saturations greater than 92% Status post right-sided thoracentesis 10/28/2021 with 700 cc fluid removed, follow fluid analysis Follow surgery recommendations, status post exploratory laparotomy with omental biopsy follow-up pathology Follow-up final liver biopsy results I-S at bedside Consulted dietitian for severe protein calorie malnutrition, continue TPN for nutritional support DVT/GI prophylaxis Discussed with RN RECOMMENDATIONS: 1. Status post thoracentesis on the right side. Feels better. 700 cc fluid removed. Await analysis. 2. Status post expiratory laparotomy with omental biopsy await final pathology 3. We will monitor chest x-ray for ruling out any recurrent effusions. 4. Follow general surgery recommendations. 5. Improve nutritional status. Her albumin is only 1.6 and contributing to the pleural effusions. 6. Follow up final liver biopsy results. 7. Discussed with RN. ZUNILDA RANGEL MD Oct 30, 2021 09:24
[2021-10-30 11:00] VITALS: BP 129/57
[2021-10-30] MEDS: MORPHINE SULFATE 2 MG/ML INJ. IVP PRN ×2 (12:20→21:06)
[2021-10-30] MEDS: ONDANSETRON PF 4 MG/2 ML VIAL. IVP PRN (12:20)
--- NOTE | 2021-10-30 12:39 | PDOC ---
[employer] PROGRESS NOTE Date of Service DOS: DATE: 10/30/21 TIME: 12:38 Chief Complaint Chief Complaint SBO Right pleural effusion Status post liver biopsy Peritoneal seeding suspect cancer Nausea vomiting Anxiety, anemia, diverticulitis, hypertension, renal failure, UTI, mitral valve prolapse, cataracts, colostomy, hysterectomy, previous tobacco abuse. History of Present Illness History of Present Illness 10/30: Postop day 3 shortness of breath stable no vomiting. No bowel movement as of yet. Significant gastrostomy tube output to drain. Mood is depressed today. 10/29: Seen postop day 2. NG tube pulled per surgery gastrostomy tube to suctio n. No bowel activity. Labs relatively stable will check hemogram and labs given the morning. She has had some nausea and pain. Long discussion with family and patient about goals of care if pathology comes back with suspected peritoneal carcinomatosis. And they would prefer inpatient hospice care if that is the case. They would like time which is appropriate given her recent surgery. 10/28: Seen postop day 1. Shortness of breath is improved. Still with significant NG tube output. Pain is reasonably controlled. Based on the findings I have discussed potential positive care hospice on discharge with family. 10/27: Seen bedside. More dyspneic. No CP. Abdominal pain is 4-10. NG tube suction. To IR for 800cc drain right pleural effusion Consult pulmonology. To OR for omental biopsy lap lysis of lesions and gastrostomy tube 10/26: Patient seen and examined. PICC line and TPN 10/25: Patient seen and examined. She is alert and oriented. Still has NG to suction. Still awaiting pathology report. 10/24: Patient seen and examined. She is resting with no apparent distress. Pathology results still pending 10/23: Patient seen and examined She is on D5 half-normal Chart reviewed Discussed with RN Discussed with case management I spoke with Dr. Banegas he is working on getting the pathology report done soon 10/22/2021 Patient seen and examined Discussed with RN Chart reviewed Discussed with case management I called oncology The plan is to get a liver biopsy today We suspect the elevated CA 25 level may be due to peritoneal cancer versus gastric cancer versus ovarian cancer (she has had her ovaries removed about 4 years ago however oncology explained she could still have ovarian CA) 10/21/2021 Patient seen and examined She still feels better with her NG in place CA-125 level is elevated to 582 Discussed with case management Discussed with RN 10/20/2021 Patient seen and examined We had to place an NG She states she feels better with the NG to suction Discussed with RN Chart reviewed Vitals/I&O Vitals/I&O: Vital Signs Date Time Temp Pulse Resp B/P (MAP) Pulse Ox O2 Delivery O2 Flow Rate FiO2 10/30/21 08:12 97 Nasal Cannula 3.0 10/30/21 07:00 97.3 92 20 142/63 (89) 97.3 I & O 10/29/21 10/29/21 10/30/21 15:00 23:00 07:00 Intake Total 50 ml 0 ml Output Total 625 ml 100 ml Balance -575 ml -100 ml Physical Exam General: Other (ill appearing ) Heart: Regular rate Lungs: Clear Abdomen: Soft, Other (g tube in place) Extremities: No cyanosis, No edema Skin: No breakdown, No significant lesion Labs Labs: Laboratory Tests Test 10/29/21 18:45 10/30/21 00:10 10/30/21 05:47 10/30/21 12:11 Glucose (Fingerstick) 147 mg/dL (70-99) 138 mg/dL (70-99) 155 mg/dL (70-99) 172 mg/dL (70-99) Assessment and Plan Assessmemt and Plan Problems Medical Problems: (1) Acute on chronic renal insufficiency Status: Acute (2) Ascites Status: Acute (3) Chronic diarrhea Status: Acute (4) Chronic vomiting Status: Acute (5) Partial small bowel obstruction Status: Acute Comment Review of Relevant I have reviewed the following items mariusz (where applicable) has been applied. Medications: Current Medications Medications (Trade) Dose Ordered Sig/Ella Route PRN Reason Start Time Stop Time Status Last Admin Dose Admin Sodium Chloride 20 meq/Potassium Acetate 20 meq/ Potassium Phosphate 13.6 mmol/Magnesium Sulfate 5 meq/ Multivitamins 10 ml/Zinc/Copper/ Manganese/ Selenium 1 ml/ Total Parenteral Nutrition/Amino Acids/Dextrose/ Fat Emulsion Intravenous 1,512 ml @ 63 mls/hr TPN CONT IV 10/29/21 22:00 10/30/21 21:59 10/29/21 21:08 Justifications for Admission Other Justification YUKO CARBALLO MD Oct 30, 2021 12:39
[2021-10-30 12:40] LABS: HEMATOCRIT 22.3 % (36.0-47.0); HEMOGLOBIN 7.2 g/dL (12.0-15.5); RED BLOOD COUNT 2.34 x10^6/uL (3.50-5.40); RED CELL DISTRIBUTION WIDTH 16.6 % (11.5-14.5); WHITE BLOOD COUNT 11.9 x10^3/uL (4.0-11.0)
[2021-10-30 12:53] LABS: CALCIUM 7.7 mg/dL (8.5-10.1); CREATININE 1.5 mg/dL (0.6-1.0); GFR 33.2; MAGNESIUM 2.5 mg/dL (1.8-2.4); PHOSPHORUS 3.2 mg/dL (2.6-4.7)
[2021-10-30 12:56] LABS: POTASSIUM 5.6 mmol/L (3.5-5.1)
--- NOTE | 2021-10-30 13:15 | PDOC ---
[place] RUIZ G[employer] 10/30/21 1315: CARDIO Progress Notes Date and Time Date of Service 10/30/2021 Time of Evaluation 1130 Subjective Subjective: No Chest Pain, No shortness of breath, No Palpitations Vitals Vitals Vital Signs Date Time Temp Pulse Resp B/P (MAP) Pulse Ox O2 Delivery O2 Flow Rate FiO2 10/30/21 12:20 92 142/63 10/30/21 12:20 97 Nasal Cannula 3.0 10/30/21 07:00 97.3 20 97.3 Weight Weight [ ] Input and Output Intake and Output Intake and Output 10/30/21 07:00 Intake Total 50 ml Output Total 725 ml Balance -675 ml Intake Oral 50 ml Output Urine Total 525 ml Drainage Total 200 ml Laboratory Labs Laboratory Tests Test 10/29/21 18:45 10/30/21 00:10 10/30/21 05:47 10/30/21 12:11 Glucose (Fingerstick) 147 mg/dL (70-99) 138 mg/dL (70-99) 155 mg/dL (70-99) 172 mg/dL (70-99) Test 10/30/21 12:35 White Blood Count 11.9 x10^3/uL (4.0-11.0) Red Blood Count 2.34 x10^6/uL (3.50-5.40) Hemoglobin 7.2 g/dL (12.0-15.5) Hematocrit 22.3 % (36.0-47.0) Mean Corpuscular Volume 95 fL (79-100) Mean Corpuscular Hemoglobin 31 pg (25-35) Mean Corpuscular Hemoglobin Concent 32 g/dL (31-37) Red Cell Distribution Width 16.6 % (11.5-14.5) Platelet Count 287 x10^3/uL (140-400) Sodium Level 138 mmol/L (136-145) Potassium Level 5.6 mmol/L (3.5-5.1) Chloride Level 103 mmol/L (98-107) Carbon Dioxide Level 31 mmol/L (21-32) Anion Gap 4 (6-14) Blood Urea Nitrogen 40 mg/dL (7-20) Creatinine 1.5 mg/dL (0.6-1.0) Estimated GFR (Cockcroft-Gault) 33.2 Glucose Level 171 mg/dL (70-99) Calcium Level 7.7 mg/dL (8.5-10.1) Phosphorus Level 3.2 mg/dL (2.6-4.7) Magnesium Level 2.5 mg/dL (1.8-2.4) Microbiology Micro Microbiology 10/27/21 Gram Stain - Final, Resulted 10/27/21 Aerobic and Anaerobic Culture - Preliminary, Resulted 10/19/21 Blood Culture - Final, Complete NO GROWTH AFTER 5 DAYS Review of Systems Constitutional: yes: weakness, alert, oriented Ears/Nose/Throat: Yes: no symptom reported Eyes: Yes: no symptom reported Pulmonary: Yes no symptom reported Cardiovascular: Yes no symptom reported Gastrointestional: Yes: nausea, abdominal pain Genitourinary: Yes: no symptom reported Musculoskeletal: Yes: no symptom reported Skin: Yes no symptom reported Psychiatric/Neurological: Yes: no symptom reported Endocrine: Yes: no symptom reported Physical Exam HEENT: Neck Supple W Full Motion, Other (NGT) Chest: Symmetric LUNGS: Other (diminished bases) Heart: RRR (SR/ST) Abdomen: Other (abdominal binder in place, g-tube) Extremities: No Edema Neurology: alert, oriented, follow commands Assessment Assessment 1. Abdominal pain/diarrhea: suspected peritoneal carcinomatosis. SBO with liver lesions. metastatic disease suspected, although liver biopsy path reportedly benign. s/p expiratory laparotomy with biopsy- path pending. as per GS team 2. Arrhythmia: episode of PAFIB- converted to SR/ST with digoxin and has been maintaining other that brief burst on 10/27/21. likely precipitated by above. Continue metoprolol for rate control. Maintaining SR. 3. Acute respiratory failure, bilateral pleural effusion. multifactorial. s/p thoracentesis with 700cc off 3. Chronic diastolic CHF: compensated 4. HTN: Controlled 5. YA with Hyperkalemia: K 5.6 with associated TPN. Hold TPN, Pharmacy to adjust regimen Justicifation of Admission Dx: Justifications for Admission: Justification of Admission Dx: Yes RANJAN LUO MD 10/30/21 1634: CARDIO Progress Notes Assessment Assessment Patient seen and examined She is feeling better. I agree with our nurse practitioners assessment and plan. Abdominal pain/diarrhea: suspected peritoneal carcinomatosis. SBO with liver lesions. metastatic disease suspected, although liver biopsy path reportedly benign. s/p expiratory laparotomy with biopsy. NG out. Feeling better. As per GS team Arrhythmia: episode of PAFIB- converted to SR/ST with digoxin and has been maintaining other that brief burst on 10/27/21. Likely precipitated by above. Co ntinue metoprolol for rate control. Maintaining SR. Acute respiratory failure, bilateral pleural effusion. multifactorial. s/p thoracentesis with 700cc off Chronic diastolic CHF: compensated HTN: Controlled AY with Hyperkalemia: K 5.6 with associated TPN. Hold TPN, Pharmacy to adjust regimen [place] RUIZ APRN Oct 30, 2021 13:15 RANJAN LUO MD Oct 30, 2021 16:34
[2021-10-30] MEDS: TPN PER PHARMACY MC PRN (13:16)
--- NOTE | 2021-10-30 13:17 | NUR ---
Pharmacy TPN Dosing Note S: OLI MARISCAL is a 81 year old F Currently receiving Central Continuous TPN started 10/26/21 B:Pertinent PMH: bowel obstruction Height: 5 feet, 5 inches Weight: 86.8 kg Current diet: npo LABS: Sodium: 138 Potassium: 5.6 Chloride: 103 Calcium: 7.7 Corrected Calcium: 9.62 Magnesium: 2.5 CO2: 31 SCr: 1.5 Glucose: 138-171 Albumin: 1.6 AST: 22 ALT: 26 TPN FORMULA: TPN TYPE: Central Continuous AMINO ACIDS: 65 gm DEXTROSE: 215 gm LIPIDS: 30 gm SODIUM CHLORIDE: 20 mEq SODIUM PHOSPHATE: 13.6 mmol MULTIPLE VITAMIN: 10 ml TRACE ELEMENTS: 1 ml ml(s) TPN PLAN: Potassium and magnesium removed from TPN R: Change TPN per plan and ordered formula Will monitor electrolytes, glucose, and tolerance to TPN. Glendy Renteria Daisha, 10/30/21 [id number]
[2021-10-30 15:00] VITALS: BP 146/63
--- NOTE | 2021-10-30 18:08 | PATHOLOGY ---
[facility] Accession Number: [id number] . 01 Material submitted: . liver - LIVER MASS CORE BIOPSY . 01 Clinical history: . 81-YEAR-OLD FEMALE WITH A HISTORY OF DIVERTICULITIS, STATUS POST COLECTOMY, AND ALSO HYSTERECTOMY SEVERAL YEARS AGO. PRESENTS WITH ABDOMINAL PAIN, NAUSEA AND VOMITING OVER THE LAST SEVERAL WEEKS. IMAGING STUDIES OF THE ABDOMEN SUGGEST A SMALL BOWEL OBSTRUCTION AND HYPODENSE LESIONS WITHIN THE LIVER, A RENAL CYST, AND DIFFUSE STRANDING IN THE MESENTERY, SUSPICIOUS FOR METASTATIC DISEASE AND PERITONEUM WELL BILATERAL PLEURAL EFFUSIONS. . 02 Diagnosis: Liver, needle biopsy: - Multiple simple liver cysts. - Zone 3 sinusoidal dilatation, with associated congestion and hepatic plate atrophy, compatible with hepatic venous outflow obstruction. - Lymphohistiocytic hemophagocytosis. - Nonspecific portal and lobular inflammation. - Steatosis, mild. - Extramedullary hematopoiesis. - Negative for primary or metastatic neoplasm. (ELY:yandel; 10/29/2021) [facility] 10/30/2021 1753 Local . 02 Comment: Evaluation of the liver biopsy fails to identify a primary or a metastatic neoplasm. Several incomplete simple hepatic cyst ray are identified within the biopsy material. . In addition, are findings of hepatic venous outflow obstruction, the differential diagnosis of which includes right sided heart failure versus chronic Budd-Chiari. . Lastly, there is evidence of stellate cell/histiocytic hyperplasia and hypertrophy, with prominent lymphohistiocytic hemophagocytosis. 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 . . Lymphohistiocytic hemophagocytosis can occur as a primary or secondary condition. And as a secondary process, concurrent malignancy and/or infection are often seen. Please correlate clincially. . (ELY:yandel; 10/29/2021) . 02 Electronically signed: . Wes Gillette MD, Pathologist NPI- [id number] . 01 Gross description: . The specimen is received in formalin, labeled "Viji Iglesias, liver BX". Received are 5 needle cores of orange-brown tissue ranging in length from 1.5 to 0.6 cm by 0.1 cm in diameter. The specimen is submitted entirely in A1-A3. ([facility]; 10/22/2021) [facility] 10/22/2021 1730 Local . 02 Microscopic: . Several needle core biopsies of the liver are available for review. Primary or metastatic neoplasm is not evident. There are several incomplete hepatic cyst ray which are lined by attenuated, cuboidal and bland appearing epithelial cells. . The portal tracts display a mild to moderate lymphoplasmacytic inflammatory infiltrate. Scattered histiocytes are also seen within the portal tracts. Interlobular bile ducts are present within portal tracts and demonstrate minimal epithelial injury. Interface activity is minimal to mild. Ductular reaction is not evident. The hepatic parenchyma shows areas of zone 3 sinusoidal dilatation with associated sinusoidal congestion and hepatic plate atrophy. Steatosis is mild (less than 20%). The sinusoids are dilated throughout most of the liver, but not as pronounced as zone 3 areas. Within the sinusoids are hypertrophied stellate cells/histiocytes many of which have undergone phagocytosis of erythrocytes. Extramedullary hematopoiesis in the form of normoblasts within the sinusoids is also present. Scattered clusters of lymphocytes and plasma cells are also identified. . The trichrome stain shows areas of zone 3 perisinusoidal fibrosis, which is in association with the sinusoidal dilatation and congestion. The reticulin stain shows an overall intact hepatic reticulin framework pattern. Many of the hepatic plates are irregularly thickened, consistent with regeneration. The PAS-D stain shows numerous ceroid-laden Kupffer cells. The PAS stain highlights intracytoplasmic hepatocellular glycogen. The iron stain shows scattered hepatocellular and Kupffer cell siderosis, of non-uniform distribution. . Special stains (properly controlled): Blocks A1, A2, A3 PAS, PAS-D, iron, reticulin, and trichrome. . (ELY:yandel; 10/29/2021) . 02 Pathologist provided ICD-10: K76.89, K72.90, K75.9, K76.0 . 02 CPT . 545796, 456469, 846774, 276135, 131236, 934111, 995470, 177652, 355491, 188528, 627385, 477132, 443142 Specimen Comment: A courtesy copy of this report has been sent to [phone], [phone] Specimen Comment: [id number], , Specimen Comment: Report sent to , DR JOY, DR ZIMMERMAN Specimen Comment: DR GRAY / DR CUELLAR Performed at: 01 [facility] [address] [id number] MD Yoshi Black MD Phone: [phone] Performed at: 02 [facility] [address] [id number] MD Jona Chang MD Phone: [phone]
[2021-10-30] MEDS: PROCHLORPERAZINE 10 MG/2 ML VIAL. IV PRN (18:27)
[2021-10-30 19:03] VITALS: BP 122/55
[2021-10-30] MEDS: IV NORMAL SALINE 1000ML BAG 1,000 ML IV SCH (20:30)
[2021-10-30] MEDS ORDERED: [UNRECOGNIZED DRUG - OTHER] IV SCH (22:00)
[2021-10-30] MEDS ORDERED: AMINO ACID IV SCH (22:00)
[2021-10-30] MEDS ORDERED: TOTAL PARENTERAL NUTRITION IV SCH (22:00)
[2021-10-30] MEDS ORDERED: DEXTROSE 70% IV SCH (22:00)
[2021-10-30 22:37] VITALS: BP 134/62
[2021-10-31] MEDS: METOPROLOL IV PUSH 5 MG/5 ML VIAL. IVP SCH ×5 (00:03→23:49)
[2021-10-31] MEDS: PROCHLORPERAZINE 10 MG/2 ML VIAL. IV PRN ×2 (01:37→20:58)
[2021-10-31] MEDS: MORPHINE SULFATE 2 MG/ML INJ. IVP PRN ×3 (01:42→20:59)
[2021-10-31 03:03] VITALS: BP 119/56
[2021-10-31] MEDS: INSULIN LISPRO 300 UNITS/3 ML VIAL. SQ SCH ×5 (06:00→23:49)
[2021-10-31] MEDS: PANTOPRAZOLE IV PUSH 40 MG VIAL. IVP SCH ×2 (06:29→18:46)
[2021-10-31 07:00] VITALS: BP 147/68
[2021-10-31 07:18] LABS: CALCIUM 7.5 mg/dL (8.5-10.1); CREATININE 1.5 mg/dL (0.6-1.0); GFR 33.2; MAGNESIUM 2.3 mg/dL (1.8-2.4); PHOSPHORUS 3.9 mg/dL (2.6-4.7); POTASSIUM 5.1 mmol/L (3.5-5.1)
[2021-10-31] MEDS: BUDESONIDE 0.5 MG/2 ML NEBU. NEB SCH ×2 (07:20→20:27)
[2021-10-31] MEDS: IPRATRPIUM/ALBUTEROL 0.5/2.5MG 3 ML NEBU. NEB SCH ×4 (07:21→20:27)
[2021-10-31] MEDS: TPN PER PHARMACY MC PRN (08:12)
--- NOTE | 2021-10-31 08:16 | NUR ---
Pharmacy TPN Dosing Note S: OLI MARISCAL is a 81 year old F Currently receiving Central Continuous TPN started 10/26/21 B:Pertinent PMH: bowel obstruction Height: 5 feet, 5 inches Weight: 86.8 kg Current diet: npo LABS: Sodium: 137 Potassium: 5.1 Chloride: 104 Calcium: 7.5 Corrected Calcium: 9.42 Magnesium: 2.3 CO2: 31 SCr: 1.5 Glucose: 149-153 Albumin: 1.6 AST: 22 ALT: 26 TPN FORMULA: TPN TYPE: Central Continuous AMINO ACIDS: 65 gm DEXTROSE: 215 gm LIPIDS: 30 gm SODIUM CHLORIDE: 20 mEq SODIUM ACETATE: mEq SODIUM PHOSPHATE: 13.6 mmol POTASSIUM CHLORIDE: mEq POTASSIUM ACETATE: 10 mEq POTASSIUM PHOSPHATE: - mmol MAGNESIUM: - mEq CALCIUM: mEq INSULIN: units MULTIPLE VITAMIN: 10 ml TRACE ELEMENTS: 1 ml ml(s) TPN PLAN: Add small amount K. R: Continue TPN as ordered Will monitor electrolytes, glucose, and tolerance to TPN. LANEY CARDONA [facility], 10/31/21 08
--- NOTE | 2021-10-31 09:07 | PDOC ---
PULMONARY PROGRESS NOTES DATE: 10/31/21 TIME: 09:04 Subjective Patient is resting comfortably on 2 L nasal cannula, mom complains of nausea today, gastric tubes suction No overnight concerns from nursing Vitals Vital Signs Date Time Temp Pulse Resp B/P (MAP) Pulse Ox O2 Delivery O2 Flow Rate FiO2 10/31/21 08:00 Nasal Cannula 2.0 10/31/21 07:23 92 10/31/21 06:32 106 137/65 10/31/21 03:03 97.8 18 97.8 ROS: No Chest Pain, No Abdominal Pain, No Increase Cough General: Alert, Oriented X4, No acute distress Lungs: Clear Abdomen: Soft, Non-tender Extremities: No Edema, Other Skin: Warm, Dry Labs Laboratory Tests Test 10/29/21 11:47 10/29/21 18:45 10/30/21 00:10 10/30/21 05:47 Glucose (Fingerstick) 135 mg/dL (70-99) 147 mg/dL (70-99) 138 mg/dL (70-99) 155 mg/dL (70-99) Test 10/30/21 12:11 10/30/21 12:35 10/30/21 19:11 10/31/21 00:01 Glucose (Fingerstick) 172 mg/dL (70-99) 153 mg/dL (70-99) 149 mg/dL (70-99) White Blood Count 11.9 x10^3/uL (4.0-11.0) Red Blood Count 2.34 x10^6/uL (3.50-5.40) Hemoglobin 7.2 g/dL (12.0-15.5) Hematocrit 22.3 % (36.0-47.0) Mean Corpuscular Volume 95 fL (79-100) Mean Corpuscular Hemoglobin 31 pg (25-35) Mean Corpuscular Hemoglobin Concent 32 g/dL (31-37) Red Cell Distribution Width 16.6 % (11.5-14.5) Platelet Count 287 x10^3/uL (140-400) Sodium Level 138 mmol/L (136-145) Potassium Level 5.6 mmol/L (3.5-5.1) Chloride Level 103 mmol/L (98-107) Carbon Dioxide Level 31 mmol/L (21-32) Anion Gap 4 (6-14) Blood Urea Nitrogen 40 mg/dL (7-20) Creatinine 1.5 mg/dL (0.6-1.0) Estimated GFR (Cockcroft-Gault) 33.2 Glucose Level 171 mg/dL (70-99) Calcium Level 7.7 mg/dL (8.5-10.1) Phosphorus Level 3.2 mg/dL (2.6-4.7) Magnesium Level 2.5 mg/dL (1.8-2.4) Test 10/31/21 06:32 10/31/21 06:50 Glucose (Fingerstick) 152 mg/dL (70-99) Sodium Level 137 mmol/L (136-145) Potassium Level 5.1 mmol/L (3.5-5.1) Chloride Level 104 mmol/L (98-107) Carbon Dioxide Level 31 mmol/L (21-32) Anion Gap 2 (6-14) Blood Urea Nitrogen 42 mg/dL (7-20) Creatinine 1.5 mg/dL (0.6-1.0) Estimated GFR (Cockcroft-Gault) 33.2 Glucose Level 148 mg/dL (70-99) Calcium Level 7.5 mg/dL (8.5-10.1) Phosphorus Level 3.9 mg/dL (2.6-4.7) Magnesium Level 2.3 mg/dL (1.8-2.4) Laboratory Tests Test 10/30/21 12:11 10/30/21 12:35 10/30/21 19:11 10/31/21 00:01 Glucose (Fingerstick) 172 mg/dL (70-99) 153 mg/dL (70-99) 149 mg/dL (70-99) White Blood Count 11.9 x10^3/uL (4.0-11.0) Red Blood Count 2.34 x10^6/uL (3.50-5.40) Hemoglobin 7.2 g/dL (12.0-15.5) Hematocrit 22.3 % (36.0-47.0) Mean Corpuscular Volume 95 fL (79-100) Mean Corpuscular Hemoglobin 31 pg (25-35) Mean Corpuscular Hemoglobin Concent 32 g/dL (31-37) Red Cell Distribution Width 16.6 % (11.5-14.5) Platelet Count 287 x10^3/uL (140-400) Sodium Level 138 mmol/L (136-145) Potassium Level 5.6 mmol/L (3.5-5.1) Chloride Level 103 mmol/L (98-107) Carbon Dioxide Level 31 mmol/L (21-32) Anion Gap 4 (6-14) Blood Urea Nitrogen 40 mg/dL (7-20) Creatinine 1.5 mg/dL (0.6-1.0) Estimated GFR (Cockcroft-Gault) 33.2 Glucose Level 171 mg/dL (70-99) Calcium Level 7.7 mg/dL (8.5-10.1) Phosphorus Level 3.2 mg/dL (2.6-4.7) Magnesium Level 2.5 mg/dL (1.8-2.4) Test 10/31/21 06:32 10/31/21 06:50 Glucose (Fingerstick) 152 mg/dL (70-99) Sodium Level 137 mmol/L (136-145) Potassium Level 5.1 mmol/L (3.5-5.1) Chloride Level 104 mmol/L (98-107) Carbon Dioxide Level 31 mmol/L (21-32) Anion Gap 2 (6-14) Blood Urea Nitrogen 42 mg/dL (7-20) Creatinine 1.5 mg/dL (0.6-1.0) Estimated GFR (Cockcroft-Gault) 33.2 Glucose Level 148 mg/dL (70-99) Calcium Level 7.5 mg/dL (8.5-10.1) Phosphorus Level 3.9 mg/dL (2.6-4.7) Magnesium Level 2.3 mg/dL (1.8-2.4) Medications Active Scripts Medications Dose Route/Sig Max Daily Dose Days Date Category Dose Instructions Ondansetron Odt (Ondansetron) 4 Mg Tab.rapdis 1 Tab PO PRN Q6-8HRS 10/14/21 Rx Dicyclomine Hcl 10 Mg Capsule 10 Mg PO PRN QID PRN 10/14/21 Rx Stool Softener (Docusate Sodium) 50 Mg Capsule 1 Cap PO DAILY PRN 30 10/04/21 Reported Tylenol (Acetaminophen) 325 Mg Tablet 1-2 Tab PO HS 10/04/21 Reported Perphen-Amitrip 2 Mg-10 Mg Tab (Perphenazine/Amitriptyline Hcl) 1 Each Tablet 1 Tab PO QHS 10/04/21 Reported Methotrexate (Methotrexate Sodium) 2.5 Mg Tablet 10 Tab PO Tuesday10/04/21 Reported Folic Acid 0.8 Mg Capsule 1 Cap PO DAILY 30 10/04/21 Reported Vitamin D3 (Vitamin D) 25 Mcg Tablet 25 Mcg PO DAILY 10/04/21 Reported 1,000 UNITS = 25 MCG Amlodipine Besylate 2.5 Mg Tablet 2.5 Mg PO DAILY 02/07/19 Reported Vit C-Quyen Hips 500 mg Chew Tb (Ascorbic Acid/Ascorbate Sodium) 500 Mg Tab.chew 500 Mg PO DAILY 02/07/19 Reported Probiotic Acidophilus (Lactobacillus Acidophilus) 1 Each Tablet 1 Each PO DAILY 02/07/19 Reported Metoprolol Tartrate 50 Mg Tablet 50 Mg PO BID 02/07/19 Reported Omeprazole 20 Mg Tablet.dr 20 Mg PO DAILY 02/07/19 Reported Multivitamins (Multivitamin) 1 Each Tablet 1 Tab PO DAILY 12/20/17 Reported Impression . 1. Acute hypoxic respiratory failure, likely secondary to bilateral pleural effusions and abdominal process. Status post thoracentesis 10/27/2021 with 700 cc of fluid removal. --- Improving 2. The patient with abnormal CT chest and abdomen and pelvis. She has multiple hypodense lesions in the liver. She comes in with small-bowel obstruction. Peritoneal carcinomatosis is the concern. There is abnormal right upper lobe parenchymal density 3.1 cm with some calcification. This was also present in imaging study from 2018 and is likely benign. She did have a liver biopsy and I have not seen the outpatient results yet. 3. Small-bowel obstruction and liver lesions. Status post expiratory laparotomy 10/27/2021 with omental biopsy 4. Forty-five years of tobaccoism. Likely underlying chronic obstructive pulmonary disease. 5. Bilateral pleural effusions seen on the CT chest, more on the right than on the left, likely secondary to low oncotic pressure. Cannot exclude malignant effusion. 6. Severe hypoalbuminemia contributing to low oncotic pressure and pleural effusions. Plan . Updated 10/03/2021 Continue supplemental oxygen to keep oxygen saturations greater than 92%, wean as tolerated Status post right-sided thoracentesis 10/28/2021 with 700 cc fluid removed, follow fluid analysis--negative Nebs as needed Follow surgery recommendations, status post exploratory laparotomy with omental biopsy follow-up pathology Follow-up final liver biopsy results--(pathology negative for neoplasm) I-S at bedside Continue TPN for nutritional support PT/OT, out of bed as tolerated DVT/GI prophylaxis Discussed with RN Updated 10/02/2021 Continue supplemental oxygen to keep oxygen saturations greater than 92%, wean as tolerated Status post right-sided thoracentesis 10/28/2021 with 700 cc fluid removed, follow fluid analysis Nebs as needed Follow surgery recommendations, status post exploratory laparotomy with omental biopsy follow-up pathology Follow-up final liver biopsy results I-S at bedside Continue TPN for nutritional support DVT/GI prophylaxis Discussed with RN Updated 10/01/2021 Continue supplemental oxygen to keep oxygen saturations greater than 92% Status post right-sided thoracentesis 10/28/2021 with 700 cc fluid removed, follow fluid analysis Follow surgery recommendations, status post exploratory laparotomy with omental biopsy follow-up pathology Follow-up final liver biopsy results I-S at bedside Consulted dietitian for severe protein calorie malnutrition, continue TPN for nutritional support DVT/GI prophylaxis Discussed with ZUNILDA VILCHIS MD Oct 31, 2021 09:07
[2021-10-31 11:00] VITALS: BP 150/65
--- NOTE | 2021-10-31 12:24 | PDOC ---
[facility] PROGRESS NOTE Date of Service DOS: DATE: 10/31/21 TIME: 12:23 Chief Complaint Chief Complaint SBO - s/p ex-lap on 10/27/2021 Right pleural effusion - s/p thoracentesis of 800 cc on 10/27/2021 Status post liver biopsy Peritoneal seeding suspect cancer Nausea vomiting Anxiety, anemia, diverticulitis, hypertension, renal failure, UTI, mitral valve prolapse, cataracts, colostomy, hysterectomy, previous tobacco abuse. History of Present Illness History of Present Illness 10/31: POD #4 shortness of breath stable. Having some more nausea today no vomiting. She feels her stomach gurgling. No bowel movement. Hb dropped to 7.2, K improved from 5.6 down to 5 CR stable at 1.5. Still on TPN. 10/30: Postop day 3 shortness of breath stable no vomiting. No bowel movement as of yet. Significant gastrostomy tube output to drain. Mood is depressed today. 10/29: Seen postop day 2. NG tube pulled per surgery gastrostomy tube to suction. No bowel activity. Labs relatively stable will check hemogram and labs given the morning. She has had some nausea and pain. Long discussion with family and patient about goals of care if pathology comes back with suspected peritoneal carcinomatosis. And they would prefer inpatient hospice care if that is the case. They would like time which is appropriate given her recent surgery. 10/28: Seen postop day 1. Shortness of breath is improved. Still with significant NG tube output. Pain is reasonably controlled. Based on the findings I have discussed potential positive care hospice on discharge with family. 10/27: Seen bedside. More dyspneic. No CP. Abdominal pain is 4-10. NG tube suction. To IR for 800cc drain right pleural effusion Consult pulmonology. To OR for omental biopsy lap lysis of lesions and gastrostomy tube 10/26: Patient seen and examined. PICC line and TPN 10/25: Patient seen and examined. She is alert and oriented. Still has NG to suction. Still awaiting pathology report. 10/24: Patient seen and examined. She is resting with no apparent distress. Pathology results still pending 10/23: Patient seen and examined She is on D5 half-normal Chart reviewed Discussed with RN Discussed with case management I spoke with Dr. Banegas he is working on getting the pathology report done soon 10/22/2021 Patient seen and examined Discussed with RN Chart reviewed Discussed with case management I called oncology The plan is to get a liver biopsy today We suspect the elevated CA 25 level may be due to peritoneal cancer versus gastric cancer versus ovarian cancer (she has had her ovaries removed about 4 years ago however oncology explained she could still have ovarian CA) 10/21/2021 Patient seen and examined She still feels better with her NG in place CA-125 level is elevated to 582 Discussed with case management Discussed with RN 10/20/2021 Patient seen and examined We had to place an NG She states she feels better with the NG to suction Discussed with RN Chart reviewed Vitals/I&O Vitals/I&O: Vital Signs Date Time Temp Pulse Resp B/P (MAP) Pulse Ox O2 Delivery O2 Flow Rate FiO2 10/31/21 12:00 108 150/65 10/31/21 11:00 98.4 18 99 Nasal Cannula 2.0 98.4 I & O 10/30/21 10/30/21 10/31/21 15:00 23:00 07:00 Output Total 300 ml 600 ml 1000 ml Balance -300 ml -600 ml -1000 ml Physical Exam General: Other (ill appearing ) Heart: Regular rate Lungs: Clear Abdomen: Soft, Other (g tube in place) Extremities: No cyanosis, No edema Skin: No breakdown, No significant lesion Labs Labs: Laboratory Tests Test 10/30/21 12:35 10/30/21 19:11 10/31/21 00:01 10/31/21 06:32 White Blood Count 11.9 x10^3/uL (4.0-11.0) Red Blood Count 2.34 x10^6/uL (3.50-5.40) Hemoglobin 7.2 g/dL (12.0-15.5) Hematocrit 22.3 % (36.0-47.0) Mean Corpuscular Volume 95 fL (79-100) Mean Corpuscular Hemoglobin 31 pg (25-35) Mean Corpuscular Hemoglobin Concent 32 g/dL (31-37) Red Cell Distribution Width 16.6 % (11.5-14.5) Platelet Count 287 x10^3/uL (140-400) Sodium Level 138 mmol/L (136-145) Potassium Level 5.6 mmol/L (3.5-5.1) Chloride Level 103 mmol/L (98-107) Carbon Dioxide Level 31 mmol/L (21-32) Anion Gap 4 (6-14) Blood Urea Nitrogen 40 mg/dL (7-20) Creatinine 1.5 mg/dL (0.6-1.0) Estimated GFR (Cockcroft-Gault) 33.2 Glucose Level 171 mg/dL (70-99) Calcium Level 7.7 mg/dL (8.5-10.1) Phosphorus Level 3.2 mg/dL (2.6-4.7) Magnesium Level 2.5 mg/dL (1.8-2.4) Glucose (Fingerstick) 153 mg/dL (70-99) 149 mg/dL (70-99) 152 mg/dL (70-99) Test 10/31/21 06:50 10/31/21 11:53 Sodium Level 137 mmol/L (136-145) Potassium Level 5.1 mmol/L (3.5-5.1) Chloride Level 104 mmol/L (98-107) Carbon Dioxide Level 31 mmol/L (21-32) Anion Gap 2 (6-14) Blood Urea Nitrogen 42 mg/dL (7-20) Creatinine 1.5 mg/dL (0.6-1.0) Estimated GFR (Cockcroft-Gault) 33.2 Glucose Level 148 mg/dL (70-99) Calcium Level 7.5 mg/dL (8.5-10.1) Phosphorus Level 3.9 mg/dL (2.6-4.7) Magnesium Level 2.3 mg/dL (1.8-2.4) Glucose (Fingerstick) 164 mg/dL (70-99) Assessment and Plan Assessmemt and Plan Problems Medical Problems: (1) Acute on chronic renal insufficiency Status: Acute (2) Ascites Status: Acute (3) Chronic diarrhea Status: Acute (4) Chronic vomiting Status: Acute (5) Partial small bowel obstruction Status: Acute Comment Review of Relevant I have reviewed the following items mariusz (where applicable) has been applied. Medications: Current Medications Medications (Trade) Dose Ordered Sig/Ella Route PRN Reason Start Time Stop Time Status Last Admin Dose Admin Sodium Chloride 20 meq/Sodium Phosphate 13.6 mmol/ Multivitamins 10 ml/Zinc/Copper/ Manganese/ Selenium 1 ml/ Total Parenteral Nutrition/Amino Acids/Dextrose/ Fat Emulsion Intravenous 1,512 ml @ 63 mls/hr TPN CONT IV 10/30/21 22:00 10/31/21 21:59 10/30/21 21:06 Justifications for Admission Other Justification YUKO CARBALLO MD Oct 31, 2021 12:24
[2021-10-31 15:00] VITALS: BP 148/66
--- NOTE | 2021-10-31 16:31 | PDOC ---
CARDIOLOGY PROGRESS NOTE SUBJECTIVE: Subjective: No new events. Discussed with nursing. Meds reviewed. Physical Exam HEENT: Neck Supple W Full Motion, Other (NGT) Chest: Symmetric LUNGS: Other (diminished bases) Heart: RRR (SR/ST) Abdomen: Other (abdominal binder in place, g-tube) Extremities: No Edema Neurology: alert, oriented, follow commands Assessment Assessment 1. Abdominal pain/diarrhea: suspected peritoneal carcinomatosis. SBO with liver lesions. metastatic disease suspected, although liver biopsy path reportedly benign. s/p expiratory laparotomy with biopsy- path pending. as per GS team 2. Arrhythmia: episode of PAFIB- converted to SR/ST with digoxin and has been ma intaining other that brief burst on 10/27/21. likely precipitated by above. Continue metoprolol for rate control. Maintaining SR. 3. Acute respiratory failure, bilateral pleural effusion. multifactorial. s/p thoracentesis with 700cc off 3. Chronic diastolic CHF: compensated 4. HTN: Controlled 5. YA with Hyperkalemia: K 5.6 with associated TPN. Hold TPN, Pharmacy to adjust regimen OBJECTIVE: Vital Signs/I&O: Vital Signs Date Time Temp Pulse Resp B/P (MAP) Pulse Ox O2 Delivery O2 Flow Rate FiO2 10/31/21 12:44 99 Nasal Cannula 2.0 10/31/21 12:00 108 150/65 10/31/21 11:00 98.4 18 98.4 I & O 10/30/21 10/30/21 10/31/21 15:00 23:00 07:00 Output Total 300 ml 600 ml 1000 ml Balance -300 ml -600 ml -1000 ml CURRENT MEDICATIONS: Current Medications Medications (Trade) Dose Ordered Sig/Ella Route PRN Reason Start Time Stop Time Status Last Admin Dose Admin Sodium Chloride 20 meq/Sodium Phosphate 13.6 mmol/ Multivitamins 10 ml/Zinc/Copper/ Manganese/ Selenium 1 ml/ Total Parenteral Nutrition/Amino Acids/Dextrose/ Fat Emulsion Intravenous 1,512 ml @ 63 mls/hr TPN CONT IV 10/30/21 22:00 10/31/21 21:59 10/30/21 21:06 DIAGNOSTIC TESTING: Labs: Laboratory Tests 10/31/21 06:50 Laboratory Tests Test 10/30/21 19:11 10/31/21 00:01 10/31/21 06:32 10/31/21 06:50 Glucose (Fingerstick) 153 mg/dL (70-99) H 149 mg/dL (70-99) H 152 mg/dL (70-99) H Sodium Level 137 mmol/L (136-145) Potassium Level 5.1 mmol/L (3.5-5.1) Chloride Level 104 mmol/L (98-107) Carbon Dioxide Level 31 mmol/L (21-32) Anion Gap 2 (6-14) L Blood Urea Nitrogen 42 mg/dL (7-20) H Creatinine 1.5 mg/dL (0.6-1.0) H Estimated GFR (Cockcroft-Gault) 33.2 Glucose Level 148 mg/dL (70-99) H Calcium Level 7.5 mg/dL (8.5-10.1) L Phosphorus Level 3.9 mg/dL (2.6-4.7) Test 10/31/21 11:53 Glucose (Fingerstick) 164 mg/dL (70-99) H Justicifation of Admission Dx: Justifications for Admission: Justification of Admission Dx: Yes LEV AWAD MD Oct 31, 2021 16:31
[2021-10-31 19:48] VITALS: BP 123/57
[2021-10-31] MEDS: IV NORMAL SALINE 1000ML BAG 1,000 ML IV SCH (20:07)
[2021-10-31] MEDS ORDERED: [UNRECOGNIZED DRUG - OTHER] IV SCH (22:00)
[2021-10-31] MEDS ORDERED: DEXTROSE 70% IV SCH (22:00)
[2021-10-31] MEDS ORDERED: TOTAL PARENTERAL NUTRITION IV SCH (22:00)
[2021-10-31] MEDS ORDERED: AMINO ACID IV SCH (22:00)
[2021-10-31 23:19] VITALS: BP 144/58
[2021-11-01] VITALS (11 sets, daily range): BP systolic 125–150; BP diastolic 55–66
[2021-11-01] MEDS: PANTOPRAZOLE IV PUSH 40 MG VIAL. IVP SCH ×2 (05:34→17:49)
[2021-11-01] MEDS: METOPROLOL IV PUSH 5 MG/5 ML VIAL. IVP SCH ×3 (05:35→17:50)
[2021-11-01] MEDS: INSULIN LISPRO 300 UNITS/3 ML VIAL. SQ SCH ×3 (05:53→18:00)
[2021-11-01] MEDS: BUDESONIDE 0.5 MG/2 ML NEBU. NEB SCH ×2 (07:44→20:00)
[2021-11-01] MEDS: IPRATRPIUM/ALBUTEROL 0.5/2.5MG 3 ML NEBU. NEB SCH ×4 (07:44→20:38)
--- NOTE | 2021-11-01 09:58 | PDOC ---
PULMONARY PROGRESS NOTES DATE: 11/01/21 TIME: 09:57 Subjective Patient complains of some shortness of breath today. Remains on nasal cannula. Vitals Vital Signs Date Time Temp Pulse Resp B/P (MAP) Pulse Ox O2 Delivery O2 Flow Rate FiO2 11/01/21 07:44 98 Nasal Cannula 2.0 11/01/21 07:00 97.8 109 18 149/63 (91) 97.8 ROS: No Chest Pain, No Abdominal Pain, No Increase Cough General: Alert, Oriented X4, No acute distress Lungs: Clear Abdomen: Soft, Non-tender Extremities: Other (Trace pitting edema) Skin: Warm, Dry Labs Laboratory Tests Test 10/30/21 12:11 10/30/21 12:35 10/30/21 19:11 10/31/21 00:01 Glucose (Fingerstick) 172 mg/dL (70-99) 153 mg/dL (70-99) 149 mg/dL (70-99) White Blood Count 11.9 x10^3/uL (4.0-11.0) Red Blood Count 2.34 x10^6/uL (3.50-5.40) Hemoglobin 7.2 g/dL (12.0-15.5) Hematocrit 22.3 % (36.0-47.0) Mean Corpuscular Volume 95 fL (79-100) Mean Corpuscular Hemoglobin 31 pg (25-35) Mean Corpuscular Hemoglobin Concent 32 g/dL (31-37) Red Cell Distribution Width 16.6 % (11.5-14.5) Platelet Count 287 x10^3/uL (140-400) Sodium Level 138 mmol/L (136-145) Potassium Level 5.6 mmol/L (3.5-5.1) Chloride Level 103 mmol/L (98-107) Carbon Dioxide Level 31 mmol/L (21-32) Anion Gap 4 (6-14) Blood Urea Nitrogen 40 mg/dL (7-20) Creatinine 1.5 mg/dL (0.6-1.0) Estimated GFR (Cockcroft-Gault) 33.2 Glucose Level 171 mg/dL (70-99) Calcium Level 7.7 mg/dL (8.5-10.1) Phosphorus Level 3.2 mg/dL (2.6-4.7) Magnesium Level 2.5 mg/dL (1.8-2.4) Test 10/31/21 06:32 10/31/21 06:50 10/31/21 11:53 10/31/21 23:48 Glucose (Fingerstick) 152 mg/dL (70-99) 164 mg/dL (70-99) 157 mg/dL (70-99) Sodium Level 137 mmol/L (136-145) Potassium Level 5.1 mmol/L (3.5-5.1) Chloride Level 104 mmol/L (98-107) Carbon Dioxide Level 31 mmol/L (21-32) Anion Gap 2 (6-14) Blood Urea Nitrogen 42 mg/dL (7-20) Creatinine 1.5 mg/dL (0.6-1.0) Estimated GFR (Cockcroft-Gault) 33.2 Glucose Level 148 mg/dL (70-99) Calcium Level 7.5 mg/dL (8.5-10.1) Phosphorus Level 3.9 mg/dL (2.6-4.7) Magnesium Level 2.3 mg/dL (1.8-2.4) Test 11/01/21 05:53 Glucose (Fingerstick) 164 mg/dL (70-99) Laboratory Tests Test 10/31/21 11:53 10/31/21 23:48 11/01/21 05:53 Glucose (Fingerstick) 164 mg/dL (70-99) 157 mg/dL (70-99) 164 mg/dL (70-99) Medications Active Scripts Medications Dose Route/Sig Max Daily Dose Days Date Category Dose Instructions Ondansetron Odt (Ondansetron) 4 Mg Tab.rapdis 1 Tab PO PRN Q6-8HRS 10/14/21 Rx Dicyclomine Hcl 10 Mg Capsule 10 Mg PO PRN QID PRN 10/14/21 Rx Stool Softener (Docusate Sodium) 50 Mg Capsule 1 Cap PO DAILY PRN 30 10/04/21 Reported Tylenol (Acetaminophen) 325 Mg Tablet 1-2 Tab PO HS 10/04/21 Reported Perphen-Amitrip 2 Mg-10 Mg Tab (Perphenazine/Amitriptyline Hcl) 1 Each Tablet 1 Tab PO QHS 10/04/21 Reported Methotrexate (Methotrexate Sodium) 2.5 Mg Tablet 10 Tab PO Tuesday10/04/21 Reported Folic Acid 0.8 Mg Capsule 1 Cap PO DAILY 30 10/04/21 Reported Vitamin D3 (Vitamin D) 25 Mcg Tablet 25 Mcg PO DAILY 10/04/21 Reported 1,000 UNITS = 25 MCG Amlodipine Besylate 2.5 Mg Tablet 2.5 Mg PO DAILY 02/07/19 Reported Vit C-Quyen Hips 500 mg Chew Tb (Ascorbic Acid/Ascorbate Sodium) 500 Mg Tab.chew 500 Mg PO DAILY 02/07/19 Reported Probiotic Acidophilus (Lactobacillus Acidophilus) 1 Each Tablet 1 Each PO DAILY 02/07/19 Reported Metoprolol Tartrate 50 Mg Tablet 50 Mg PO BID 02/07/19 Reported Omeprazole 20 Mg Tablet.dr 20 Mg PO DAILY 02/07/19 Reported Multivitamins (Multivitamin) 1 Each Tablet 1 Tab PO DAILY 12/20/17 Reported Impression . 1. Acute hypoxic respiratory failure, likely secondary to bilateral pleural effusions and abdominal process. Status post thoracentesis 10/27/2021 with 700 cc of fluid removal. --- Improving 2. The patient with abnormal CT chest and abdomen and pelvis. She has multiple hypodense lesions in the liver. She comes in with small-bowel obstruction. Peritoneal carcinomatosis is the concern. There is abnormal right upper lobe parenchymal density 3.1 cm with some calcification. This was also present in imaging study from 2018 and is likely benign. She did have a liver biopsy and I have not seen the outpatient results yet. 3. Small-bowel obstruction and liver lesions. Status post expiratory laparot angel 10/27/2021 with omental biopsy 4. Forty-five years of tobaccoism. Likely underlying chronic obstructive pulmonary disease. 5. Bilateral pleural effusions seen on the CT chest, more on the right than on the left, likely secondary to low oncotic pressure. Cannot exclude malignant effusion. 6. Severe hypoalbuminemia contributing to low oncotic pressure and pleural effusions. Plan . Continue supplemental oxygen to keep oxygen saturations greater than 92%, wean as tolerated Status post right-sided thoracentesis 10/28/2021 with 700 cc fluid removed, follow fluid analysis--negative. Repeat chest x-ray today to rule out any recurrent right-sided effusion. Nebs as needed Follow surgery recommendations, status post exploratory laparotomy with omental biopsy follow-up pathology final liver biopsy results--(pathology negative for neoplasm) I-S at bedside Continue TPN for nutritional support PT/OT, out of bed as tolerated DVT/GI prophylaxis Discussed with ZUNILDA VILCHIS MD Nov 01, 2021 09:58
--- NOTE | 2021-11-01 10:05 | PDOC ---
[facility] PROGRESS NOTE Date of Service DOS: DATE: 11/01/21 TIME: 09:51 Chief Complaint Chief Complaint SBO - s/p ex-lap on 10/27/2021 Right pleural effusion - s/p thoracentesis of 800 cc on 10/27/2021 Status post liver biopsy Peritoneal seeding suspect cancer Nausea vomiting Anxiety, anemia, diverticulitis, hypertension, renal failure, UTI, mitral valve prolapse, cataracts, colostomy, hysterectomy, previous tobacco abuse. History of Present Illness History of Present Illness 11/01: POD #5 had her gastrostomy tube disconnect accidentally, spilling gastric contents onto herself. SOB stable. Had a small BM overnight. No appetite as of yet. 3: POD #4 shortness of breath stable. Having some more nausea today no vomiting. She feels her stomach gurgling. No bowel movement. Hb dropped to 7.2, K improved from 5.6 down to 5 CR stable at 1.5. Still on TPN. 10/30: Postop day 3 shortness of breath stable no vomiting. No bowel movement as of yet. Significant gastrostomy tube output to drain. Mood is depressed today. 10/29: Seen postop day 2. NG tube pulled per surgery gastrostomy tube to suction. No bowel activity. Labs relatively stable will check hemogram and labs given the morning. She has had some nausea and pain. Long discussion with family and patient about goals of care if pathology comes back with suspected peritoneal carcinomatosis. And they would prefer inpatient hospice care if that is the case. They would like time which is appropriate given her recent surgery. 10/28: Seen postop day 1. Shortness of breath is improved. Still with significant NG tube output. Pain is reasonably controlled. Based on the findings I have discussed potential positive care hospice on discharge with family. 10/27: Seen bedside. More dyspneic. No CP. Abdominal pain is 4-10. NG tube s uction. To IR for 800cc drain right pleural effusion Consult pulmonology. To OR for omental biopsy lap lysis of lesions and gastrostomy tube 10/26: Patient seen and examined. PICC line and TPN 10/25: Patient seen and examined. She is alert and oriented. Still has NG to suction. Still awaiting pathology report. 10/24: Patient seen and examined. She is resting with no apparent distress. Pathology results still pending 10/23: Patient seen and examined She is on D5 half-normal Chart reviewed Discussed with RN Discussed with case management I spoke with Dr. Banegas he is working on getting the pathology report done soon 10/22/2021 Patient seen and examined Discussed with RN Chart reviewed Discussed with case management I called oncology The plan is to get a liver biopsy today We suspect the elevated CA 25 level may be due to peritoneal cancer versus gastric cancer versus ovarian cancer (she has had her ovaries removed about 4 years ago however oncology explained she could still have ovarian CA) 10/21/2021 Patient seen and examined She still feels better with her NG in place CA-125 level is elevated to 582 Discussed with case management Discussed with RN 10/20/2021 Patient seen and examined We had to place an NG She states she feels better with the NG to suction Discussed with RN Chart reviewed Vitals/I&O Vitals/I&O: Vital Signs Date Time Temp Pulse Resp B/P (MAP) Pulse Ox O2 Delivery O2 Flow Rate FiO2 11/01/21 07:44 98 Nasal Cannula 2.0 11/01/21 07:00 97.8 109 18 149/63 (91) 97.8 I & O 10/31/21 10/31/21 11/01/21 15:00 23:00 07:00 Intake Total 0 ml 0 ml 0 ml Output Total 700 ml 800 ml Balance 0 ml -700 ml -800 ml Physical Exam General: Other (ill appearing ) Heart: Regular rate Lungs: Clear Abdomen: Soft, Other (g tube in place) Extremities: No cyanosis, No edema Skin: No breakdown, No significant lesion Labs Labs: Laboratory Tests Test 10/31/21 11:53 10/31/21 23:48 11/01/21 05:53 Glucose (Fingerstick) 164 mg/dL (70-99) 157 mg/dL (70-99) 164 mg/dL (70-99) Assessment and Plan Assessmemt and Plan Problems Medical Problems: (1) Acute on chronic renal insufficiency Status: Acute (2) Ascites Status: Acute (3) Chronic diarrhea Status: Acute (4) Chronic vomiting Status: Acute (5) Partial small bowel obstruction Status: Acute Comment Review of Relevant I have reviewed the following items mariusz (where applicable) has been applied. Medications: Current Medications Medications (Trade) Dose Ordered Sig/Ella Route PRN Reason Start Time Stop Time Status Last Admin Dose Admin Sodium Chloride 20 meq/Sodium Phosphate 13.6 mmol/Potassium Acetate 10 meq/ Multivitamins 10 ml/Zinc/Copper/ Manganese/ Selenium 1 ml/ Total Parenteral Nutrition/Amino Acids/Dextrose/ Fat Emulsion Intravenous 1,512 ml @ 63 mls/hr TPN CONT IV 10/31/21 22:00 11/01/21 21:59 10/31/21 20:58 Justifications for Admission Other Justification YUKO CARBALLO MD Nov 01, 2021 10:05
[2021-11-01] MEDS: ONDANSETRON PF 4 MG/2 ML VIAL. IVP PRN (10:15)
[2021-11-01] MEDS: MORPHINE SULFATE 2 MG/ML INJ. IVP PRN (10:15)
--- NOTE | 2021-11-01 10:28 | PDOC ---
CARDIOLOGY PROGRESS NOTE SUBJECTIVE: No chest pain. Still feels poorly. She thinks she had too much breathing treatments and her heart is racing. OBJECTIVE: Vital Signs/I&O: Vital Signs Date Time Temp Pulse Resp B/P (MAP) Pulse Ox O2 Delivery O2 Flow Rate FiO2 11/01/21 10:15 98 Nasal Cannula 2.0 11/01/21 07:00 97.8 109 18 149/63 (91) 97.8 I & O 10/31/21 10/31/21 11/01/21 15:00 23:00 07:00 Intake Total 0 ml 0 ml 0 ml Output Total 700 ml 800 ml Balance 0 ml -700 ml -800 ml Objective: Physical Exam HEENT: Neck Supple W Full Motion, Other (NGT) Chest: Symmetric LUNGS: Other (diminished bases) Heart: RRR (SR/ST) Abdomen: Other (abdominal binder in place, g-tube) Extremities: No Edema Neurology: alert, oriented, follow commands Assessment Assessment 1. Abdominal pain/diarrhea: suspected peritoneal carcinomatosis. SBO with liver lesions. metastatic disease suspected, although liver biopsy path reportedly benign. s/p expiratory laparotomy with biopsy- path pending. as per GS team 2. Arrhythmia: episode of PAFIB- converted to SR/ST with digoxin and has been maintaining other that brief burst on 10/27/21. likely precipitated by above. Continue metoprolol for rate control. Maintaining SR 3. Acute respiratory failure, bilateral pleural effusion. multifactorial. s/p thoracentesis with 700cc off 3. Chronic diastolic CHF: compensated 4. HTN: Controlled PLAN: 1. Supportive care from CV standpoint. No changes. Thanks Justicifation of Admission Dx: Justifications for Admission: Justification of Admission Dx: Yes LEV AWAD MD Nov 01, 2021 10:28
[2021-11-01] MEDS ORDERED: ALTEPLASE 1MG SYRINGE. INT CAT ONE (10:45)
--- NOTE | 2021-11-01 11:04 | RAD ---
Single view chest dated 11/01/2021 11:01 AM: COMPARISON: 10/27/2021 Clinical Indication: Pleural effusion. Findings: Single upright portable exam of the chest was performed. Heart and mediastinal contours are stable. T here is patchy airspace disease in the lower lobes with blunting the costophrenic sulci. No pneumotho rax. Right-sided PICC in place, unchanged. IMPRESSION: 1. No significant interval change in bilateral airspace disease and pleural effusions. Electronically signed by: Lamont Waller MD (11/01/2021 11:02 AM) [id number]
[2021-11-01] MEDS: TPN PER PHARMACY MC PRN ×2 (12:46→14:29)
--- NOTE | 2021-11-01 13:16 | PDOC ---
PROGRESS NOTES Date of Service DATE: 11/01/21 TIME: 13:15 Subjective Subjective doing "ok", prominent nausea, has emesis basin close by Objective Objective Vital Signs Date Time Temp Pulse Resp B/P (MAP) Pulse Ox O2 Delivery O2 Flow Rate FiO2 11/01/21 13:09 102 125/55 11/01/21 12:41 97 Nasal Cannula 2.0 11/01/21 11:00 97.8 18 97.8 Intake and Output 11/01/21 07:00 Intake Total 0 ml Output Total 1500 ml Balance -1500 ml Intake Oral 0 ml Output Urine Total 950 ml Drainage Total 550 ml Physical Exam Abdomen: Soft (gastrostomy tube intact) General: Alert, Oriented X3 Neuro: Normal speech Assessment Assessment Problems Medical Problems: (1) Acute on chronic renal insufficiency Status: Acute (2) Ascites Status: Acute (3) Chronic diarrhea Status: Acute (4) Chronic vomiting Status: Acute (5) Partial small bowel obstruction Status: Acute Plan Plan of Care Supportive tx, await path results Comment Review of Relevant I have reviewed the following items mariusz (where applicable) has been applied. Labs Laboratory Tests Test 10/30/21 19:11 10/31/21 00:01 10/31/21 06:32 10/31/21 06:50 Glucose (Fingerstick) 153 mg/dL (70-99) 149 mg/dL (70-99) 152 mg/dL (70-99) Sodium Level 137 mmol/L (136-145) Potassium Level 5.1 mmol/L (3.5-5.1) Chloride Level 104 mmol/L (98-107) Carbon Dioxide Level 31 mmol/L (21-32) Anion Gap 2 (6-14) Blood Urea Nitrogen 42 mg/dL (7-20) Creatinine 1.5 mg/dL (0.6-1.0) Estimated GFR (Cockcroft-Gault) 33.2 Glucose Level 148 mg/dL (70-99) Calcium Level 7.5 mg/dL (8.5-10.1) Phosphorus Level 3.9 mg/dL (2.6-4.7) Magnesium Level 2.3 mg/dL (1.8-2.4) Test 10/31/21 11:53 10/31/21 23:48 11/01/21 05:53 11/01/21 12:09 Glucose (Fingerstick) 164 mg/dL (70-99) 157 mg/dL (70-99) 164 mg/dL (70-99) 153 mg/dL (70-99) Laboratory Tests Test 10/31/21 23:48 11/01/21 05:53 11/01/21 12:09 Glucose (Fingerstick) 157 mg/dL (70-99) 164 mg/dL (70-99) 153 mg/dL (70-99) Microbiology 10/27/21 Gram Stain - Final, Complete 10/27/21 Aerobic and Anaerobic Culture - Final, Complete 10/19/21 Blood Culture - Final, Complete NO GROWTH AFTER 5 DAYS Medications Current Medications Sodium Chloride 1,000 ml @ 1,000 mls/hr 1X ONCE IV Last administered on 10/19/21at 12:48; Start 10/19/21 at 12:00; Stop 10/19/21 at 12:59; Status DC Ondansetron HCl (Zofran) 4 mg 1X ONCE IVP Last administered on 10/19/21at 13:03; Start 10/19/21 at 12:00; Stop 10/19/21 at 12:05; Status DC Fentanyl Citrate (Fentanyl 2ml Vial) 50 mcg 1X ONCE IVP Last administered on 10/19/21at 13:03; Start 10/19/21 at 12:00; Stop 10/19/21 at 12:05; Status DC Piperacillin Sod/ Tazobactam Sod 2.25 gm/Sodium Chloride 50 ml @ 100 mls/hr 1X ONCE IV Last administered on 10/19/21at 14:13; Start 10/19/21 at 13:15; Stop 10/19/21 at 13:44; Status DC Ondansetron HCl (Zofran) 4 mg PRN Q8HRS PRN IVP NAUSEA/VOMITING Last administered on 10/19/21at 22:52; Start 10/19/21 at 16:30; Stop 10/20/21 at 16:2 9; Status DC Morphine Sulfate (Morphine Sulfate) 2 mg PRN Q2HR PRN IVP PAIN Last administered on 10/20/21at 03:48; Start 10/19/21 at 16:30; Stop 10/20/21 at 16:29; Status DC Pantoprazole Sodium (PROTONIX VIAL for IV PUSH) 40 mg BIDAC IVP Last administer ed on 11/01/21at 05:34; Start 10/19/21 at 17:30 Pharmacy Consult (C.diff Med Screen By Rx) 1 each 1X ONCE MC ; Start 10/20/21 at 04:00; Stop 10/20/21 at 04:01; Status Cancel Sodium Chloride 1,000 ml @ 75 mls/hr [id number] IV Last administered on 10/20/21at 08:52; Start 10/20/21 at 08:45; Stop 10/21/21 at 10:58; Status DC Iohexol (Omnipaque 300 Mg/ml) 400 ml 1X ONCE IJ ; Start 10/20/21 at 09:45; Stop 10/20/21 at 09:46; Status DC Info (CONTRAST GIVEN -- Rx MONITORING) 1 each PRN DAILY PRN MC SEE COMMENTS L ast administered on 10/20/21at 14:15; Start 10/20/21 at 09:45; Stop 10/22/21 at 09:44; Status DC Morphine Sulfate (Morphine Sulfate) 2 mg 1X ONCE IM ; Start 10/21/21 at 08:45; Stop 10/21/21 at 08:46; Status DC Sodium Chloride 1,000 ml @ 75 mls/hr [id number] IV Last administered on 10/24/21at 00:21; Start 10/21/21 at 12:00; Stop 10/24/21 at 10:15; Status DC Metoprolol Tartrate (Lopressor Vial) 5 mg PRN Q5MIN PRN IVP TACHYCARDIA Last administered on 10/23/21at 04:07; Start 10/21/21 at 19:45 Dicyclomine HCl (Bentyl) 10 mg PRN Q6HRS PRN IM abd pain; Start 10/21/21 at 19:45 Morphine Sulfate (Morphine Sulfate) 2 mg PRN Q2HR PRN IVP MODERATE TO SEVERE PAIN Last administered on 11/01/21at 10:15; Start 10/21/21 at 20:45 Prochlorperazine Edisylate (Compazine) 10 mg PRN Q6HRS PRN IV NAUSEA/VOMITING Last administered on 10/31/21at 20:58; Start 10/21/21 at 20:45 Lidocaine HCl (Buffered Lidocaine 1%) 3 ml STK-MED ONCE .ROUTE ; Start 10/22/21 at 13:03; Stop 10/22/21 at 13:03; Status DC Gelatin (Gelfoam Size 12-7mm) 1 each STK-MED ONCE .ROUTE ; Start 10/22/21 at 13:03; Stop 10/22/21 at 13:04; Status DC Midazolam HCl (Versed) 2 mg STK-MED ONCE .ROUTE ; Start 10/22/21 at 13:07; Stop 10/22/21 at 13:08; Status DC Fentanyl Citrate (Fentanyl 2ml Vial) 100 mcg STK-MED ONCE .ROUTE ; Start 10/22/21 at 13:07; Stop 10/22/21 at 13:08; Status DC Lidocaine HCl (Buffered Lidocaine 1%) 3 ml 1X ONCE IJ Last administered on 10/22/21at 13:34; Start 10/22/21 at 13:15; Stop 10/22/21 at 13:19; Status DC Midazolam HCl (Versed) 2 mg 1X ONCE IV Last administered on 10/22/21at 13:33; Start 10/22/21 at 13:15; Stop 10/22/21 at 13:19; Status DC Fentanyl Citrate (Fentanyl 2ml Vial) 100 mcg 1X ONCE IV Last administered on 10/22/21at 13:33; Start 10/22/21 at 13:15; Stop 10/22/21 at 13:19; Status DC Gelatin (Gelfoam Size 12-7mm) 1 each 1X ONCE TP Last administered on 10/22/21at 13:38; Start 10/22/21 at 13:15; Stop 10/22/21 at 13:19; Status DC Digoxin (Lanoxin) 500 mcg 1X ONCE IV Last administered on 10/23/21at 05:01; Start 10/23/21 at 05:00; Stop 10/23/21 at 05:01; Status DC Phenol (Chloraseptic) 1 spray PRN Q2HR PRN PO SORE THROAT, 2ND CHOICE Last administered on 10/26/21at 16:25; Start 10/23/21 at 09:15 Throat Lozenges (Cepacol Sore Throat Lozenge) 1 han PRN Q2HRS PRN PO SORE THROAT, 1ST CHOICE Last administered on 10/25/21at 13:03; Start 10/23/21 at 09:15 Metoprolol Tartrate (Lopressor Vial) 5 mg Q6HRS IVP Last administered on 11/01/21at 13:09; Start 10/23/21 at 13:30 Dextrose/Lactated Ringer's 1,000 ml @ 100 mls/hr Q10H IV Last administered on 10/26/21at 17:16; Start 10/24/21 at 10:30; Stop 10/26/21 at 20:44; Status DC Info (Tpn Per Pharmacy) 1 each PRN DAILY PRN MC SEE COMMENTS Last administered on 11/01/21at 12:46; Start 10/26/21 at 09:00 Sodium Chloride 20 meq/Potassium Acetate 30 meq/ Potassium Phosphate 13.6 mmol/Magnesium Sulfate 10 meq/ Multivitamins 10 ml/Zinc/Copper/ Manganese/ Selenium 1 ml/ Total Parenteral Nutrition/Amino Acids/Dextrose/ Fat Emulsion Intravenous 1,512 ml @ 63 mls/hr TPN CONT IV Last administered on 10/26/21at 2 0:44; Start 10/26/21 at 22:00; Stop 10/27/21 at 21:59; Status DC Insulin Human Lispro (HumaLOG) 0-5 UNITS Q6HRS SQ Last administered on 10/31/21at 12:00; Start 10/26/21 at 18:00 Dextrose (Dextrose 50%-Water Syringe) 12.5 gm PRN Q15MIN PRN IV SEE COMMENTS; Start 10/26/21 at 14:30 Dextrose (Iv Dextrose 5%) 250 ml PRN Q15MIN PRN IV SEE COMMENTS; Start 10/26/21 at 14:30 Albuterol Sulfate (Ventolin Neb Soln) 2.5 mg PRN Q4HRS PRN NEB SHORTNESS OF BREATH; Start 10/27/21 at 08:30 Budesonide (Pulmicort) 0.5 mg RTBID NEB Last administered on 11/01/21at 07:44; Start 10/27/21 at 09:00 Guaifenesin (Robitussin Dm) 10 ml PRN Q6HRS PRN PO COUGH; Start 10/27/21 at 08:30 Albuterol/ Ipratropium (Duoneb) 3 ml RTQID NEB Last administered on 11/01/21at 07:44; Start 10/27/21 at 09:00 Fentanyl Citrate (Fentanyl 2ml Vial) 25 mcg PRN Q5MIN PRN IVP MILD PAIN 1-3; Start 10/27/21 at 09:00; Stop 10/27/21 at 20:00; Status DC Fentanyl Citrate (Fentanyl 2ml Vial) 50 mcg PRN Q5MIN PRN IVP MODERATE PAIN 4- 6; Start 10/27/21 at 09:00; Stop 10/27/21 at 20:00; Status DC Morphine Sulfate (Morphine Sulfate) 1 mg PRN Q10MIN PRN IVP SEVERE PAIN 7-10; Start 10/27/21 at 09:00; Stop 10/27/21 at 20:00; Status DC Ringer's Solution 1,000 ml @ 30 mls/hr Q24H IV ; Start 10/27/21 at 09:00; Stop 10/27/21 at 20:59; Status DC Hydromorphone HCl (Dilaudid) 0.5 mg PRN Q10MIN PRN IVP SEVERE PAIN 7-10, 2nd CHOICE; Start 10/27/21 at 09:00; Stop 10/27/21 at 20:00; Status DC Prochlorperazine Edisylate (Compazine) 5 mg PACU PRN PRN IVP NAUSEA, MRX1; Start 10/27/21 at 09:00; Stop 10/27/21 at 20:00; Status DC Fentanyl Citrate (Fentanyl 2ml Vial) 25 mcg PRN Q5MIN PRN IVP MILD PAIN 1-3; Start 10/27/21 at 10:15; Stop 10/27/21 at 20:00; Status DC Fentanyl Citrate (Fentanyl 2ml Vial) 50 mcg PRN Q5MIN PRN IVP MODERATE PAIN 4- 6; Start 10/27/21 at 10:15; Stop 10/27/21 at 20:00; Status DC Morphine Sulfate (Morphine Sulfate) 1 mg PRN Q10MIN PRN IVP SEVERE PAIN 7-10; Start 10/27/21 at 10:15; Stop 10/27/21 at 20:00; Status DC Ringer's Solution 1,000 ml @ 30 mls/hr Q24H IV Last administered on 10/27/21at 14:51; Start 10/27/21 at 10:15; Stop 10/27/21 at 22:14; Status DC Hydromorphone HCl (Dilaudid) 0.5 mg PRN Q10MIN PRN IVP SEVERE PAIN 7-10, 2nd CHOICE; Start 10/27/21 at 10:15; Stop 10/27/21 at 20:00; Status DC Prochlorperazine Edisylate (Compazine) 5 mg PACU PRN PRN IVP NAUSEA, MRX1; Start 10/27/21 at 10:15; Stop 10/27/21 at 20:00; Status DC Sodium Chloride 20 meq/Potassium Acetate 30 meq/ Potassium Phosphate 13.6 mmol/Magnesium Sulfate 10 meq/ Multivitamins 10 ml/Zinc/Copper/ Manganese/ Selenium 1 ml/ Total Parenteral Nutrition/Amino Acids/Dextrose/ Fat Emulsion Intravenous 1,512 ml @ 63 mls/hr TPN CONT IV Last administered on 10/27/21at 20:28; Start 10/27/21 at 22:00; Stop 10/28/21 at 21:59; Status DC Bupivacaine HCl/ Epinephrine Bitart (Sensorcain-Epi 0.5% Kit) 30 ml STK-MED ONCE .ROUTE ; Start 10/27/21 at 14:24; Stop 10/27/21 at 14:25; Status DC Rocuronium [place] (Zemuron) 100 mg STK-MED ONCE .ROUTE ; Start 10/27/21 at 16:13; Stop 10/27/21 at 16:13; Status DC Fentanyl Citrate (Fentanyl 5ml Vial) 250 mcg STK-MED ONCE .ROUTE ; Start 10/27/21 at 16:13; Stop 10/27/21 at 16:13; Status DC Propofol (Diprivan) 200 mg STK-MED ONCE IV ; Start 10/27/21 at 16:15; Stop 10/27/21 at 16:15; Status DC Dexamethasone Sodium Phosphate (Decadron) 4 mg STK-MED ONCE .ROUTE ; Start 10/27/21 at 16:15; Stop 10/27/21 at 16:15; Status DC Lidocaine HCl (Lidocaine Pf 2% Vial) 5 ml STK-MED ONCE .ROUTE ; Start 10/27/21 at 16:15; Stop 10/27/21 at 16:15; Status DC Ondansetron HCl (Zofran) 4 mg STK-MED ONCE .ROUTE ; Start 10/27/21 at 16:15; Stop 10/27/21 at 16:15; Status DC Sevoflurane (Ultane) 90 ml STK-MED ONCE IH ; Start 10/27/21 at 16:15; Stop 10/27/21 at 16:15; Status DC Cefoxitin Sodium (Mefoxin) 2 gm STK-MED ONCE IVP ; Start 10/27/21 at 16:33; Stop 10/27/21 at 16:34; Status DC Phenylephrine HCl (PHENYLEPHRINE in 0.9% NACL PF) 1 mg STK-MED ONCE IV ; Start 10/27/21 at 17:22; Stop 10/27/21 at 17:22; Status DC Albumin Human 500 ml @ As Directed STK-MED ONCE IV ; Start 10/27/21 at 17:22; Stop 10/27/21 at 17:22; Status DC Glycopyrrolate (Robinul) 1 mg STK-MED ONCE .ROUTE ; Start 10/27/21 at 17:44; Stop 10/27/21 at 17:44; Status DC Neostigmine [place] (Neostigmine Methylsulfate) 5 mg STK-MED ONCE .ROUTE ; Start 10/27/21 at 17:44; Stop 10/27/21 at 17:44; Status DC Sodium Chloride (Normal Saline Flush) 3 ml QSHIFT PRN IV AFTER MEDS AND BLOOD DRAWS; Start 10/27/21 at 20:30 Naloxone HCl (Narcan) 0.4 mg PRN Q2MIN PRN IV SEE INSTRUCTIONS; Start 10/27/21 at 20:30 Sodium Chloride 1,000 ml @ 25 mls/hr Q24H IV ; Start 10/27/21 at 20:30 Morphine Sulfate 30 ml @ 0 mls/hr CONT PRN PRN IV PER PROTOCOL; Start 10/27/21 at 20:30; Stop 10/28/21 at 15:38; Status DC Ondansetron HCl (Zofran) 4 mg PRN Q6HRS PRN IVP NAUESA, 1ST CHOICE Last administered on 11/01/21at 10:15; Start 10/27/21 at 20:30 Sodium Chloride 20 meq/Potassium Acetate 30 meq/ Potassium Phosphate 13.6 mmol/Magnesium Sulfate 10 meq/ Multivitamins 10 ml/Zinc/Copper/ Manganese/ Selenium 1 ml/ Total Parenteral Nutrition/Amino Acids/Dextrose/ Fat Emulsion Intravenous 1,512 ml @ 63 mls/hr TPN CONT IV Last administered on 10/28/21at 19:35; Start 10/28/21 at 22:00; Stop 10/29/21 at 21:59; Status DC Sodium Chloride 20 meq/Potassium Acetate 20 meq/ Potassium Phosphate 13.6 mmol/Magnesium Sulfate 5 meq/ Multivitamins 10 ml/Zinc/Copper/ Manganese/ Selenium 1 ml/ Total Parenteral Nutrition/Amino Acids/Dextrose/ Fat Emulsion Intravenous 1,512 ml @ 63 mls/hr TPN CONT IV Last administered on 10/29/21at 21:08; Start 10/29/21 at 22:00; Stop 10/30/21 at 21:59; Status DC Sodium Chloride 20 meq/Sodium Phosphate 13.6 mmol/ Multivitamins 10 ml/Zinc/Copper/ Manganese/ Selenium 1 ml/ Total Parenteral Nutrition/Amino Acids/Dextrose/ Fat Emulsion Intravenous 1,512 ml @ 63 mls/hr TPN CONT IV Last administered on 10/30/21at 21:06; Start 10/30/21 at 22:00; Stop 10/31/21 at 21:59; Status DC Sodium Chloride 20 meq/Sodium Phosphate 13.6 mmol/Potassium Acetate 10 meq/ Multivitamins 10 ml/Zinc/Copper/ Manganese/ Selenium 1 ml/ Total Parenteral Nutrition/Amino Acids/Dextrose/ Fat Emulsion Intravenous 1,512 ml @ 63 mls/hr TPN CONT IV Last administered on 10/31/21at 20:58; Start 10/31/21 at 22:00; Stop 11/01/21 at 21:59 Alteplase, Recombinant (Cathflo For Central Catheter Clearance) 1 mg 1X ONCE INT CAT Last administered on 11/01/21at 10:45; Start 11/01/21 at 10:45; Stop 11/01/21 at 10:46; Status DC Active Scripts Active Ondansetron Odt (Ondansetron) 4 Mg Tab.rapdis 1 Tab PO PRN Q6-8HRS Dicyclomine Hcl 10 Mg Capsule 10 Mg PO PRN QID PRN Reported Stool Softener (Docusate Sodium) 50 Mg Capsule 1 Cap PO DAILY PRN 30 Days Tylenol (Acetaminophen) 325 Mg Tablet 1-2 Tab PO HS Perphen-Amitrip 2 Mg-10 Mg Tab (Perphenazine/Amitriptyline Hcl) 1 Each Tablet 1 Tab PO QHS Methotrexate (Methotrexate Sodium) 2.5 Mg Tablet 10 Tab PO TUESDAY Folic Acid 0.8 Mg Capsule 1 Cap PO DAILY 30 Days Vitamin D3 (Vitamin D) 25 Mcg Tablet 25 Mcg PO DAILY 1,000 UNITS = 25 MCG Amlodipine Besylate 2.5 Mg Tablet 2.5 Mg PO DAILY Vit C-Quyen Hips 500 mg Chew Tb (Ascorbic Acid/Ascorbate Sodium) 500 Mg Tab.chew 500 Mg PO DAILY Probiotic Acidophilus (Lactobacillus Acidophilus) 1 Each Tablet 1 Each PO DAILY Metoprolol Tartrate 50 Mg Tablet 50 Mg PO BID Omeprazole 20 Mg Tablet.dr 20 Mg PO DAILY Multivitamins (Multivitamin) 1 Each Tablet 1 Tab PO DAILY Vitals/I & O Vital Sign - Last 24 Hours 10/31/21 10/31/21 10/31/21 10/31/21 15:00 18:04 18:49 19:48 Temp 98.0 97.2 98.0 97.2 Pulse 102 102 98 Resp 18 20 B/P (MAP) 148/66 (93) 148/66 123/57 (79) Pulse Ox 93 93 92 O2 Delivery Nasal Cannula Nasal Cannula Nasal Cannula O2 Flow Rate 2.0 2.0 2.0 10/31/21 10/31/21 10/31/21 10/31/21 20:00 20:24 20:59 21:29 Resp 18 18 Pulse Ox 94 94 97 O2 Delivery Nasal Cannula Nasal Cannula Nasal Cannula Nasal Cannula O2 Flow Rate 2.0 2.0 2.0 2.0 10/31/21 10/31/21 11/01/21 11/01/21 23:19 23:49 03:27 05:35 Temp 97.3 98.0 97.3 98.0 Pulse 109 116 107 108 Resp 20 20 B/P (MAP) 144/58 (86) 144/58 150/65 (93) 144/65 Pulse Ox 97 99 O2 Delivery Nasal Cannula Nasal Cannula O2 Flow Rate 2.0 2.0 11/01/21 11/01/21 11/01/21 11/01/21 07:00 07:44 08:00 10:15 Temp 97.8 97.8 Pulse 109 Resp 18 B/P (MAP) 149/63 (91) Pulse Ox 98 98 98 O2 Delivery Nasal Cannula Nasal Cannula Nasal Cannula Nasal Cannula O2 Flow Rate 2.0 2.0 2.0 2.0 11/01/21 11/01/21 11/01/21 11:00 12:41 13:09 Temp 97.8 97.8 Pulse 102 102 Resp 18 B/P (MAP) 125/55 (78) 125/55 Pulse Ox 97 97 O2 Delivery Nasal Cannula Nasal Cannula O2 Flow Rate 2.0 2.0 Intake and Output 10/31/21 10/31/21 11/01/21 15:00 23:00 07:00 Intake Total 0 ml 0 ml 0 ml Output Total 700 ml 800 ml Balance 0 ml -700 ml -800 ml Justifications for Admission Other Justification Nutrition Consultation Dietary Evaluation: Recommendations by RD: Dietary education by RD, PPN/TPN Comments: REC continue current TPN order which provides > 70% est nutr needs. TPN 215 g dextrose, 65 g AA, 30 g lipid. Expected Outcomes/Goals: to meet > 70% est nutr needs via nutrition support- met, goal ongoing Malnutrition Findings: Muscle Mass (Severe): Severe Depletion Body Fat Depletion (Non Severe: Mod to Severe Weight Status: Underweight BENNY HORN MD Nov 01, 2021 13:16
[2021-11-01 13:27] LABS: RED BLOOD COUNT 2.24 x10^6/uL (3.50-5.40); RED CELL DISTRIBUTION WIDTH 16.2 % (11.5-14.5); WHITE BLOOD COUNT 10.1 x10^3/uL (4.0-11.0)
[2021-11-01 13:43] LABS: CALCIUM 7.1 mg/dL (8.5-10.1); CREATININE 1.3 mg/dL (0.6-1.0); GFR 39.1; MAGNESIUM 2.1 mg/dL (1.8-2.4); POTASSIUM 4.9 mmol/L (3.5-5.1)
[2021-11-01 13:50] LABS: HEMOGLOBIN 6.8 g/dL (12.0-15.5)
--- NOTE | 2021-11-01 14:40 | NUR ---
Pharmacy TPN Dosing Note S: OLI MARISCAL is a 81 year old F Currently receiving Central Continuous TPN started 10/26/21 B:Pertinent PMH: bowel obstruction Height: 5 feet, 5 inches Weight: 74.4 kg Current diet: npo LABS: Sodium: 138 Potassium: 4.9 Chloride: 102 Calcium: 7.1 Corrected Calcium: 9.02 Magnesium: 2.1 CO2: 31 SCr: 1.3 Glucose: 118-164 Albumin: 1.6 AST: 22 ALT: 26 TPN FORMULA: TPN TYPE: Central Continuous AMINO ACIDS: 65 gm DEXTROSE: 215 gm LIPIDS: 30 gm SODIUM CHLORIDE: 20 mEq SODIUM ACETATE: mEq SODIUM PHOSPHATE: 13.6 mmol POTASSIUM CHLORIDE: mEq POTASSIUM ACETATE: 10 mEq POTASSIUM PHOSPHATE: - mmol MAGNESIUM: - mEq CALCIUM: mEq INSULIN: units MULTIPLE VITAMIN: 10 ml TRACE ELEMENTS: 1 ml ml(s) TPN PLAN: Continue same tpn R: Continue TPN as ordered. Will monitor electrolytes, glucose, and tolerance to TPN. LANEY CARDONA, [facility], 11/01/21 [id number]
[2021-11-01] MEDS: IV NORMAL SALINE 1000ML BAG 1,000 ML IV SCH (20:30)
[2021-11-01] MEDS ORDERED: DEXTROSE 70% IV SCH (22:00)
[2021-11-01] MEDS ORDERED: AMINO ACID IV SCH (22:00)
[2021-11-01] MEDS ORDERED: [UNRECOGNIZED DRUG - OTHER] IV SCH (22:00)
[2021-11-01] MEDS ORDERED: TOTAL PARENTERAL NUTRITION IV SCH (22:00)
[2021-11-02] MEDS: METOPROLOL IV PUSH 5 MG/5 ML VIAL. IVP SCH ×4 (00:09→17:16)
[2021-11-02 02:20] VITALS: BP 143/72
[2021-11-02] MEDS: PROCHLORPERAZINE 10 MG/2 ML VIAL. IV PRN ×2 (05:12→20:39)
[2021-11-02] MEDS: MORPHINE SULFATE 2 MG/ML INJ. IVP PRN ×2 (05:12→20:38)
[2021-11-02] MEDS: PANTOPRAZOLE IV PUSH 40 MG VIAL. IVP SCH ×2 (05:16→17:16)
[2021-11-02 05:42] LABS: CALCIUM 8.2 mg/dL (8.5-10.1); CREATININE 1.3 mg/dL (0.6-1.0); GFR 39.1; MAGNESIUM 2.1 mg/dL (1.8-2.4); PHOSPHORUS 3.2 mg/dL (2.6-4.7); POTASSIUM 4.3 mmol/L (3.5-5.1)
[2021-11-02] MEDS: INSULIN LISPRO 300 UNITS/3 ML VIAL. SQ SCH ×4 (05:47→18:00)
[2021-11-02 07:00] VITALS: BP 141/62
[2021-11-02] MEDS: BUDESONIDE 0.5 MG/2 ML NEBU. NEB SCH ×2 (07:58→20:00)
[2021-11-02] MEDS: IPRATRPIUM/ALBUTEROL 0.5/2.5MG 3 ML NEBU. NEB SCH ×4 (07:58→20:00)
--- NOTE | 2021-11-02 09:00 | PDOC ---
SURGICAL PROGRESS NOTE DATE: 11/02/21 TIME: 08:58 Subjective nausea, dry heaves feels unchanged Vital Signs Vital Signs Date Time Temp Pulse Resp B/P (MAP) Pulse Ox O2 Delivery O2 Flow Rate FiO2 11/02/21 07:00 97.8 89 28 141/62 (88) 98 Nasal Cannula 3.0 97.8 I&O Intake and Output 11/02/21 07:00 Intake Total 339 ml Output Total 1800 ml Balance -1461 ml Intake Oral 0 ml Blood Product IV Normal Saline Flush 339 ml Output Urine Total 1000 ml Drainage Total 800 ml General: Cooperative, Other (ill appearing ) Lungs: Other (SOA) Abdomen: Other (g tube significant drainage around tube site) Labs Laboratory Tests Test 10/31/21 11:53 10/31/21 23:48 11/01/21 05:53 11/01/21 12:09 Glucose (Fingerstick) 164 mg/dL (70-99) 157 mg/dL (70-99) 164 mg/dL (70-99) 153 mg/dL (70-99) Test 11/01/21 13:15 11/01/21 23:36 11/02/21 05:10 White Blood Count 10.1 x10^3/uL (4.0-11.0) Red Blood Count 2.24 x10^6/uL (3.50-5.40) Hemoglobin 6.8 g/dL (12.0-15.5) Hematocrit 21.0 % (36.0-47.0) Mean Corpuscular Volume 94 fL (79-100) Mean Corpuscular Hemoglobin 30 pg (25-35) Mean Corpuscular Hemoglobin Concent 33 g/dL (31-37) Red Cell Distribution Width 16.2 % (11.5-14.5) Platelet Count 344 x10^3/uL (140-400) Sodium Level 138 mmol/L (136-145) 137 mmol/L (136-145) Potassium Level 4.9 mmol/L (3.5-5.1) 4.3 mmol/L (3.5-5.1) Chloride Level 102 mmol/L (98-107) 101 mmol/L (98-107) Carbon Dioxide Level 31 mmol/L (21-32) 29 mmol/L (21-32) Anion Gap 5 (6-14) 7 (6-14) Blood Urea Nitrogen 39 mg/dL (7-20) 38 mg/dL (7-20) Creatinine 1.3 mg/dL (0.6-1.0) 1.3 mg/dL (0.6-1.0) Estimated GFR (Cockcroft-Gault) 39.1 39.1 Glucose Level 118 mg/dL (70-99) 175 mg/dL (70-99) Calcium Level 7.1 mg/dL (8.5-10.1) 8.2 mg/dL (8.5-10.1) Magnesium Level 2.1 mg/dL (1.8-2.4) 2.1 mg/dL (1.8-2.4) Glucose (Fingerstick) 150 mg/dL (70-99) Phosphorus Level 3.2 mg/dL (2.6-4.7) Laboratory Tests Test 11/01/21 12:09 11/01/21 13:15 11/01/21 23:36 11/02/21 05:10 Glucose (Fingerstick) 153 mg/dL (70-99) 150 mg/dL (70-99) White Blood Count 10.1 x10^3/uL (4.0-11.0) Red Blood Count 2.24 x10^6/uL (3.50-5.40) Hemoglobin 6.8 g/dL (12.0-15.5) Hematocrit 21.0 % (36.0-47.0) Mean Corpuscular Volume 94 fL (79-100) Mean Corpuscular Hemoglobin 30 pg (25-35) Mean Corpuscular Hemoglobin Concent 33 g/dL (31-37) Red Cell Distribution Width 16.2 % (11.5-14.5) Platelet Count 344 x10^3/uL (140-400) Sodium Level 138 mmol/L (136-145) 137 mmol/L (136-145) Potassium Level 4.9 mmol/L (3.5-5.1) 4.3 mmol/L (3.5-5.1) Chloride Level 102 mmol/L (98-107) 101 mmol/L (98-107) Carbon Dioxide Level 31 mmol/L (21-32) 29 mmol/L (21-32) Anion Gap 5 (6-14) 7 (6-14) Blood Urea Nitrogen 39 mg/dL (7-20) 38 mg/dL (7-20) Creatinine 1.3 mg/dL (0.6-1.0) 1.3 mg/dL (0.6-1.0) Estimated GFR (Cockcroft-Gault) 39.1 39.1 Glucose Level 118 mg/dL (70-99) 175 mg/dL (70-99) Calcium Level 7.1 mg/dL (8.5-10.1) 8.2 mg/dL (8.5-10.1) Magnesium Level 2.1 mg/dL (1.8-2.4) 2.1 mg/dL (1.8-2.4) Phosphorus Level 3.2 mg/dL (2.6-4.7) Problem List Problems Medical Problems: (1) Acute on chronic renal insufficiency Status: Acute (2) Ascites Status: Acute (3) Chronic diarrhea Status: Acute (4) Chronic vomiting Status: Acute (5) Partial small bowel obstruction Status: Acute Assessment/Plan will check tube placement will ask wound care to see--ostomy bag to g tube may be beneficial for drainage management Justicifation of Admission Dx: Justifications for Admission: Justification of Admission Dx: Yes MINGO CERVANTES APRN Nov 02, 2021 09:00
[2021-11-02] MEDS ORDERED: IOHEXOL 300 MG/ML 50 ML VIAL. IJ ONE (09:15)
[2021-11-02] MEDS ORDERED: CONTRAST GIVEN. MC PRN (09:15)
[2021-11-02] MEDS: TPN PER PHARMACY MC PRN ×2 (10:37→10:48)
--- NOTE | 2021-11-02 10:52 | PDOC ---
PULMONARY PROGRESS NOTES DATE: 11/02/21 TIME: 10:51 Subjective Patient remains very weak and lethargic. Currently on nasal cannula. Vitals Vital Signs Date Time Temp Pulse Resp B/P (MAP) Pulse Ox O2 Delivery O2 Flow Rate FiO2 11/02/21 07:00 97.8 89 28 141/62 (88) 98 Nasal Cannula 3.0 97.8 ROS: No Chest Pain, No Abdominal Pain, No Increase Cough General: Alert, Oriented X4, No acute distress Lungs: Clear Abdomen: Soft, Other (Tender) Extremities: Other (Trace pitting edema) Skin: Warm, Dry Labs Laboratory Tests Test 10/31/21 11:53 10/31/21 23:48 11/01/21 05:53 11/01/21 12:09 Glucose (Fingerstick) 164 mg/dL (70-99) 157 mg/dL (70-99) 164 mg/dL (70-99) 153 mg/dL (70-99) Test 11/01/21 13:15 11/01/21 23:36 11/02/21 05:10 White Blood Count 10.1 x10^3/uL (4.0-11.0) Red Blood Count 2.24 x10^6/uL (3.50-5.40) Hemoglobin 6.8 g/dL (12.0-15.5) Hematocrit 21.0 % (36.0-47.0) Mean Corpuscular Volume 94 fL (79-100) Mean Corpuscular Hemoglobin 30 pg (25-35) Mean Corpuscular Hemoglobin Concent 33 g/dL (31-37) Red Cell Distribution Width 16.2 % (11.5-14.5) Platelet Count 344 x10^3/uL (140-400) Sodium Level 138 mmol/L (136-145) 137 mmol/L (136-145) Potassium Level 4.9 mmol/L (3.5-5.1) 4.3 mmol/L (3.5-5.1) Chloride Level 102 mmol/L (98-107) 101 mmol/L (98-107) Carbon Dioxide Level 31 mmol/L (21-32) 29 mmol/L (21-32) Anion Gap 5 (6-14) 7 (6-14) Blood Urea Nitrogen 39 mg/dL (7-20) 38 mg/dL (7-20) Creatinine 1.3 mg/dL (0.6-1.0) 1.3 mg/dL (0.6-1.0) Estimated GFR (Cockcroft-Gault) 39.1 39.1 Glucose Level 118 mg/dL (70-99) 175 mg/dL (70-99) Calcium Level 7.1 mg/dL (8.5-10.1) 8.2 mg/dL (8.5-10.1) Magnesium Level 2.1 mg/dL (1.8-2.4) 2.1 mg/dL (1.8-2.4) Glucose (Fingerstick) 150 mg/dL (70-99) Phosphorus Level 3.2 mg/dL (2.6-4.7) Laboratory Tests Test 11/01/21 12:09 11/01/21 13:15 11/01/21 23:36 11/02/21 05:10 Glucose (Fingerstick) 153 mg/dL (70-99) 150 mg/dL (70-99) White Blood Count 10.1 x10^3/uL (4.0-11.0) Red Blood Count 2.24 x10^6/uL (3.50-5.40) Hemoglobin 6.8 g/dL (12.0-15.5) Hematocrit 21.0 % (36.0-47.0) Mean Corpuscular Volume 94 fL (79-100) Mean Corpuscular Hemoglobin 30 pg (25-35) Mean Corpuscular Hemoglobin Concent 33 g/dL (31-37) Red Cell Distribution Width 16.2 % (11.5-14.5) Platelet Count 344 x10^3/uL (140-400) Sodium Level 138 mmol/L (136-145) 137 mmol/L (136-145) Potassium Level 4.9 mmol/L (3.5-5.1) 4.3 mmol/L (3.5-5.1) Chloride Level 102 mmol/L (98-107) 101 mmol/L (98-107) Carbon Dioxide Level 31 mmol/L (21-32) 29 mmol/L (21-32) Anion Gap 5 (6-14) 7 (6-14) Blood Urea Nitrogen 39 mg/dL (7-20) 38 mg/dL (7-20) Creatinine 1.3 mg/dL (0.6-1.0) 1.3 mg/dL (0.6-1.0) Estimated GFR (Cockcroft-Gault) 39.1 39.1 Glucose Level 118 mg/dL (70-99) 175 mg/dL (70-99) Calcium Level 7.1 mg/dL (8.5-10.1) 8.2 mg/dL (8.5-10.1) Magnesium Level 2.1 mg/dL (1.8-2.4) 2.1 mg/dL (1.8-2.4) Phosphorus Level 3.2 mg/dL (2.6-4.7) Medications Active Scripts Medications Dose Route/Sig Max Daily Dose Days Date Category Dose Instructions Ondansetron Odt (Ondansetron) 4 Mg Tab.rapdis 1 Tab PO PRN Q6-8HRS 10/14/21 Rx Dicyclomine Hcl 10 Mg Capsule 10 Mg PO PRN QID PRN 10/14/21 Rx Stool Softener (Docusate Sodium) 50 Mg Capsule 1 Cap PO DAILY PRN 30 10/04/21 Reported Tylenol (Acetaminophen) 325 Mg Tablet 1-2 Tab PO HS 10/04/21 Reported Perphen-Amitrip 2 Mg-10 Mg Tab (Perphenazine/Amitriptyline Hcl) 1 Each Tablet 1 Tab PO QHS 10/04/21 Reported Methotrexate (Methotrexate Sodium) 2.5 Mg Tablet 10 Tab PO Tuesday10/04/21 Reported Folic Acid 0.8 Mg Capsule 1 Cap PO DAILY 30 10/04/21 Reported Vitamin D3 (Vitamin D) 25 Mcg Tablet 25 Mcg PO DAILY 10/04/21 Reported 1,000 UNITS = 25 MCG Amlodipine Besylate 2.5 Mg Tablet 2.5 Mg PO DAILY 02/07/19 Reported Vit C-Quyen Hips 500 mg Chew Tb (Ascorbic Acid/Ascorbate Sodium) 500 Mg Tab.chew 500 Mg PO DAILY 02/07/19 Reported Probiotic Acidophilus (Lactobacillus Acidophilus) 1 Each Tablet 1 Each PO DAILY 02/07/19 Reported Metoprolol Tartrate 50 Mg Tablet 50 Mg PO BID 02/07/19 Reported Omeprazole 20 Mg Tablet.dr 20 Mg PO DAILY 02/07/19 Reported Multivitamins (Multivitamin) 1 Each Tablet 1 Tab PO DAILY 12/20/17 Reported Impression . 1. Acute hypoxic respiratory failure, likely secondary to bilateral pleural effusions and abdominal process. Status post thoracentesis 10/27/2021 with 700 cc of fluid removal. --- 2. The patient with abnormal CT chest and abdomen and pelvis. She has multiple hypodense lesions in the liver. She comes in with small-bowel obstruction. Peritoneal carcinomatosis is the concern. There is abnormal right upper lobe parenchymal density 3.1 cm with some calcification. This was also present in imaging study from 2018 and is likely benign. She did have a liver biopsy and I have not seen the outpatient results yet. 3. Small-bowel obstruction and liver lesions. Status post expiratory laparotomy 10/27/2021 with omental biopsy 4. Forty-five years of tobaccoism. Likely underlying chronic obstructive pulmonary disease. 5. Bilateral pleural effusions seen on the CT chest, more on the right than on the left, likely secondary to low oncotic pressure. Cannot exclude malignant effusion. 6. Severe hypoalbuminemia contributing to low oncotic pressure and pleural effusions. Plan . Continue supplemental oxygen to keep oxygen saturations greater than 92%, wean as tolerated Status post right-sided thoracentesis 10/28/2021 with 700 cc fluid removed, follow fluid analysis--negative. Repeat chest x-ray shows some reactive accumulation of right lower lobe effusion. There is also a small effusion on the left base as well. Will monitor closely for now. Nebs as needed Follow surgery recommendations, status post exploratory laparotomy with omental biopsy follow-up pathology final liver biopsy results--(pathology negative for neoplasm) I-S at bedside Continue TPN for nutritional support PT/OT, out of bed as tolerated DVT/GI prophylaxis Discussed with ZUNILDA VILCHIS MD Nov 02, 2021 10:52
[2021-11-02 11:02] VITALS: BP 128/58
--- NOTE | 2021-11-02 11:13 | PDOC ---
[facility] PROGRESS NOTE Date of Service DOS: DATE: 11/02/21 TIME: 11:12 Chief Complaint Chief Complaint SBO - s/p ex-lap on 10/27/2021 Right pleural effusion - s/p thoracentesis of 800 cc on 10/27/2021 Status post liver biopsy Peritoneal seeding suspect cancer Nausea vomiting Anxiety, anemia, diverticulitis, hypertension, renal failure, UTI, mitral valve prolapse, cataracts, colostomy, hysterectomy, previous tobacco abuse. History of Present Illness History of Present Illness 11/02: Postop day #5 now with gastrostomy tube leaking and some surgical site saturation. Tolerated 1 unit PRBC well in ED repeat hemogram. She still passing flatus. Very weak. Shortness of breath stable. 3: POD #5 had her gastrostomy tube disconnect accidentally, spilling gastric contents onto herself. SOB stable. Had a small BM overnight. No appetite as of yet. 10/31: POD #4 shortness of breath stable. Having some more nausea today no vomiting. She feels her stomach gurgling. No bowel movement. Hb dropped to 7.2, K improved from 5.6 down to 5 CR stable at 1.5. Still on TPN. 10/30: Postop day 3 shortness of breath stable no vomiting. No bowel movement as of yet. Significant gastrostomy tube output to drain. Mood is depressed today. 10/29: Seen postop day 2. NG tube pulled per surgery gastrostomy tube to suction. No bowel activity. Labs relatively stable will check hemogram and labs given the morning. She has had some nausea and pain. Long discussion with family and patient about goals of care if pathology comes back with suspected peritoneal carcinomatosis. And they would prefer inpatient hospice care if that is the case. They would like time which is appropriate given her recent surgery. 10/28: Seen postop day 1. Shortness of breath is improved. Still with significant NG tube output. Pain is reasonably controlled. Based on the findings I have discussed potential positive care hospice on discharge with pedrito wray. 10/27: Seen bedside. More dyspneic. No CP. Abdominal pain is 4-10. NG tube suction. To IR for 800cc drain right pleural effusion Consult pulmonology. To OR for omental biopsy lap lysis of lesions and gastrostomy tube 10/26: Patient seen and examined. PICC line and TPN 10/25: Patient seen and examined. She is alert and oriented. Still has NG to suction. Still awaiting pathology report. 10/24: Patient seen and examined. She is resting with no apparent distress. Pathology results still pending 10/23: Patient seen and examined She is on D5 half-normal Chart reviewed Discussed with RN Discussed with case management I spoke with Dr. Banegas he is working on getting the pathology report done soon 10/22/2021 Patient seen and examined Discussed with RN Chart reviewed Discussed with case management I called oncology The plan is to get a liver biopsy today We suspect the elevated CA 25 level may be due to peritoneal cancer versus gastric cancer versus ovarian cancer (she has had her ovaries removed about 4 years ago however oncology explained she could still have ovarian CA) 10/21/2021 Patient seen and examined She still feels better with her NG in place CA-125 level is elevated to 582 Discussed with case management Discussed with RN 10/20/2021 Patient seen and examined We had to place an NG She states she feels better with the NG to suction Discussed with RN Chart reviewed Vitals/I&O Vitals/I&O: Vital Signs Date Time Temp Pulse Resp B/P (MAP) Pulse Ox O2 Delivery O2 Flow Rate FiO2 11/02/21 11:02 97.9 106 18 128/58 (81) 100 Nasal Cannula 3.0 97.9 I & O 11/01/21 11/01/21 11/02/21 15:00 23:00 07:00 Intake Total 339 ml 0 ml Output Total 350 ml 400 ml 1050 ml Balance -350 ml -61 ml -1050 ml Physical Exam General: Cooperative, Other (ill appearing ) Heart: Regular rate Lungs: Clear Abdomen: Other (g tube significant drainage around tube site) Extremities: No cyanosis, No edema Skin: No breakdown, No significant lesion Labs Labs: Laboratory Tests Test 11/01/21 12:09 11/01/21 13:15 11/01/21 23:36 11/02/21 05:10 Glucose (Fingerstick) 153 mg/dL (70-99) 150 mg/dL (70-99) White Blood Count 10.1 x10^3/uL (4.0-11.0) Red Blood Count 2.24 x10^6/uL (3.50-5.40) Hemoglobin 6.8 g/dL (12.0-15.5) Hematocrit 21.0 % (36.0-47.0) Mean Corpuscular Volume 94 fL (79-100) Mean Corpuscular Hemoglobin 30 pg (25-35) Mean Corpuscular Hemoglobin Concent 33 g/dL (31-37) Red Cell Distribution Width 16.2 % (11.5-14.5) Platelet Count 344 x10^3/uL (140-400) Sodium Level 138 mmol/L (136-145) 137 mmol/L (136-145) Potassium Level 4.9 mmol/L (3.5-5.1) 4.3 mmol/L (3.5-5.1) Chloride Level 102 mmol/L (98-107) 101 mmol/L (98-107) Carbon Dioxide Level 31 mmol/L (21-32) 29 mmol/L (21-32) Anion Gap 5 (6-14) 7 (6-14) Blood Urea Nitrogen 39 mg/dL (7-20) 38 mg/dL (7-20) Creatinine 1.3 mg/dL (0.6-1.0) 1.3 mg/dL (0.6-1.0) Estimated GFR (Cockcroft-Gault) 39.1 39.1 Glucose Level 118 mg/dL (70-99) 175 mg/dL (70-99) Calcium Level 7.1 mg/dL (8.5-10.1) 8.2 mg/dL (8.5-10.1) Magnesium Level 2.1 mg/dL (1.8-2.4) 2.1 mg/dL (1.8-2.4) Phosphorus Level 3.2 mg/dL (2.6-4.7) Assessment and Plan Assessmemt and Plan Problems Medical Problems: (1) Acute on chronic renal insufficiency Status: Acute (2) Ascites Status: Acute (3) Chronic diarrhea Status: Acute (4) Chronic vomiting Status: Acute (5) Partial small bowel obstruction Status: Acute Comment Review of Relevant I have reviewed the following items mariusz (where applicable) has been applied. Medications: Current Medications Medications (Trade) Dose Ordered Sig/Ella Route PRN Reason Start Time Stop Time Status Last Admin Dose Admin Sodium Chloride 20 meq/Sodium Phosphate 13.6 mmol/Potassium Acetate 10 meq/ Multivitamins 10 ml/Zinc/Copper/ Manganese/ Selenium 1 ml/ Total Parenteral Nutrition/Amino Acids/Dextrose/ Fat Emulsion Intravenous 1,512 ml @ 63 mls/hr TPN CONT IV 11/01/21 22:00 11/02/21 21:59 11/01/21 22:19 Iohexol (Omnipaque 300 Mg/ml) 50 ml 1X ONCE IJ 11/02/21 09:15 11/02/21 09:16 DC 11/02/21 09:21 Justifications for Admission Other Justification YUKO CARBALLO MD Nov 02, 2021 11:13
[2021-11-02 11:21] LABS: HEMATOCRIT 27.6 % (36.0-47.0); HEMOGLOBIN 8.8 g/dL (12.0-15.5); RED BLOOD COUNT 2.95 x10^6/uL (3.50-5.40); RED CELL DISTRIBUTION WIDTH 16.2 % (11.5-14.5)
--- NOTE | 2021-11-02 11:50 | NUR ---
Pharmacy TPN Dosing Note S: OLI MARISCAL is a 81 year old F Currently receiving Central Continuous TPN started 10/26/21 B:Pertinent PMH: Partial small bowel obstruction Height: 5 feet, 5 inches Weight: 74.4 kg Current diet: npo LABS: Sodium: 137 Potassium: 4.3 Chloride: 101 Calcium: 8.2 Corrected Calcium: 10.12 Magnesium: 2.1 CO2: 29 SCr: 1.3 Glucose: 118-175 Albumin: 1.6 AST: 22 (10/19/21) ALT: 26 (10/19/21) TPN FORMULA: TPN TYPE: Central Continuous AMINO ACIDS: 65 gm DEXTROSE: 215 gm LIPIDS: 30 gm SODIUM CHLORIDE: 20 mEq SODIUM ACETATE: - mEq SODIUM PHOSPHATE: 13.6 mmol POTASSIUM CHLORIDE: - mEq POTASSIUM ACETATE: 10 mEq POTASSIUM PHOSPHATE: - mmol MAGNESIUM: - mEq CALCIUM: - mEq INSULIN: - units MULTIPLE VITAMIN: 10 ml TRACE ELEMENTS: 1 ml ml(s) TPN PLAN: -Continue same macros per inspector plating recommendation -Electrolytes WNL, potassium trending down, 4.3 today. -BMP, Mag, Phos, Trig and Albumin ordered for 11/03/21 AM. R: Continue TPN with no changes made to TPN at this time. Will monitor electrolytes, glucose, and tolerance to TPN. BRENDA EPSTEIN, [facility], 11/02/21 1150
--- NOTE | 2021-11-02 12:06 | PDOC ---
Date of Service: DATE: 11/02/21 TIME: 11:59 Objective: Objective: D/w nurse, reviewed chart - leakage around G tube, not suctioning - imaging to check tube pending, wound care asked to see - nausea/retching. Vital Signs: Vital Signs Date Time Temp Pulse Resp B/P (MAP) Pulse Ox O2 Delivery O2 Flow Rate FiO2 11/02/21 11:02 97.9 106 18 128/58 (81) 100 Nasal Cannula 3.0 97.9 Labs: Laboratory Tests Test 11/01/21 12:09 11/01/21 13:15 11/01/21 23:36 11/02/21 05:10 Glucose (Fingerstick) 153 mg/dL 150 mg/dL White Blood Count 10.1 x10^3/uL 10.0 x10^3/uL Red Blood Count 2.24 x10^6/uL 2.95 x10^6/uL Hemoglobin 6.8 g/dL 8.8 g/dL Hematocrit 21.0 % 27.6 % Mean Corpuscular Volume 94 fL 93 fL Mean Corpuscular Hemoglobin 30 pg 30 pg Mean Corpuscular Hemoglobin Concent 33 g/dL 32 g/dL Red Cell Distribution Width 16.2 % 16.2 % Platelet Count 344 x10^3/uL 371 x10^3/uL Sodium Level 138 mmol/L 137 mmol/L Potassium Level 4.9 mmol/L 4.3 mmol/L Chloride Level 102 mmol/L 101 mmol/L Carbon Dioxide Level 31 mmol/L 29 mmol/L Anion Gap 5 7 Blood Urea Nitrogen 39 mg/dL 38 mg/dL Creatinine 1.3 mg/dL 1.3 mg/dL Estimated GFR (Cockcroft-Gault) 39.1 39.1 Glucose Level 118 mg/dL 175 mg/dL Calcium Level 7.1 mg/dL 8.2 mg/dL Magnesium Level 2.1 mg/dL 2.1 mg/dL Phosphorus Level 3.2 mg/dL Test 11/02/21 11:33 Glucose (Fingerstick) 185 mg/dL Material submitted: . liver - LIVER MASS CORE BIOPSY Clinical history: 81-YEAR-OLD FEMALE WITH A HISTORY OF DIVERTICULITIS, STATUS POST COLECTOMY, AND ALSO HYSTERECTOMY SEVERAL YEARS AGO. PRESENTS WITH ABDOMINAL PAIN, NAUSEA AND VOMITING OVER THE LAST SEVERAL WEEKS. IMAGING STUDIES OF THE ABDOMEN SUGGEST A SMALL BOWEL OBSTRUCTION AND HYPODENSE LESIONS WITHIN THE LIVER, A RENAL CYST, AND DIFFUSE STRANDING IN THE MESENTERY, SUSPICIOUS FOR METASTATIC DISEASE AND PERITONEUM WELL BILATERAL PLEURAL EFFUSIONS. Diagnosis: Liver, needle biopsy: - Multiple simple liver cysts. - Zone 3 sinusoidal dilatation, with associated congestion and hepatic plate atrophy, compatible with hepatic venous outflow obstruction. - Lymphohistiocytic hemophagocytosis. - Nonspecific portal and lobular inflammation. - Steatosis, mild. - Extramedullary hematopoiesis. - Negative for primary or metastatic neoplasm. Comment: Evaluation of the liver biopsy fails to identify a primary or a metastatic neoplasm. Several incomplete simple hepatic cyst ray are identified within the biopsy material. In addition, are findings of hepatic venous outflow obstruction, the differential diagnosis of which includes right sided heart failure versus chronic Budd-Chiari. Lastly, there is evidence of stellate cell/histiocytic hyperplasia and hypertrophy, with prominent lymphohistiocytic hemophagocytosis. 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 Lymphohistiocytic hemophagocytosis can occur as a primary or secondary condition. And as a secondary process, concurrent malignancy and/or infection are often seen. Please correlate clincially. Imaging: Abd X-Ray 11/02 pending CXR 11/01 IMPRESSION: 1. No significant interval change in bilateral airspace disease and pleural effusions. PE: GEN: appears chronically ill LUNGS: NC 3L HEART: mildly tachycardic ABD: abdominal binder NEURO/PSYCH: sleeping, did not awaken A/P: SBO, carcinomatosis, nausea/retching S/p ex lap w/ omental and liver biopsies, G tube placement - leaking today -- Await x-ray. Surgical path pending, first liver biopsy results as above. Justicifation of Admission Dx: Justifications for Admission: Justification of Admission Dx: Yes IRASEMA MCCARTY Nov 02, 2021 12:06
--- NOTE | 2021-11-02 13:29 | NUR ---
SS following up with discharge planning. SS reviewed pt chart and discussed with pt RN. Pt is currently requiring oxygen at three liters nasal canula. NPO. G-tube. TPN. Currently awaiting Pathology at this time. Wound Care, Surgery, Pulmonology, Cardiology, and GI following. COVID19 negative. Full Code at this time. Referral phoned and faxed to [facility], ; fax [phone], if needed. SS will continue to follow for discharge planning.
[2021-11-02 15:00] VITALS: BP 162/72
--- NOTE | 2021-11-02 16:40 | RAD ---
XR ABDOMEN 2V 11/02/2021 8:56 AM INDICATION: G-tube placement COMPARISON: Abdominal radiograph 09/30/2021. TECHNIQUE: Supine and upright views of the abdomen are provided. FINDINGS/ IMPRESSION: There is no free intraperitoneal air. Contrast injected through gastrostomy tube appears to be intral uminal. High attenuation within the left upper quadrant abdomen may be external to the patient. This does not demonstrate the same density as the intraluminal contrast. Repeat radiographs could be of be nefit if clinically warranted. Electronically signed by: Christina Campos MD (11/02/2021 4:37 PM) ADRIANA
[2021-11-02 19:16] VITALS: BP 134/60
[2021-11-02] MEDS: IV NORMAL SALINE 1000ML BAG 1,000 ML IV SCH (20:30)
[2021-11-02] MEDS ORDERED: AMINO ACID IV SCH (22:00)
[2021-11-02] MEDS ORDERED: DEXTROSE 70% IV SCH (22:00)
[2021-11-02] MEDS ORDERED: [UNRECOGNIZED DRUG - OTHER] IV SCH (22:00)
[2021-11-02] MEDS ORDERED: TOTAL PARENTERAL NUTRITION IV SCH (22:00)
[2021-11-02 22:47] VITALS: BP 158/70
[2021-11-03] MEDS: METOPROLOL IV PUSH 5 MG/5 ML VIAL. IVP SCH ×3 (00:06→11:13)
[2021-11-03 02:14] VITALS: BP 153/66
[2021-11-03] MEDS: MORPHINE SULFATE 2 MG/ML INJ. IVP PRN ×3 (05:14→17:41)
[2021-11-03] MEDS: PANTOPRAZOLE IV PUSH 40 MG VIAL. IVP SCH (05:15)
[2021-11-03] MEDS: INSULIN LISPRO 300 UNITS/3 ML VIAL. SQ SCH ×2 (05:38)
--- NOTE | 2021-11-03 05:41 | NUR ---
In attempt to cluster patient care, per patient request, vital signs taken at this time along with med pass. Will continue to monitor.
[2021-11-03 05:55] VITALS: BP 159/71
[2021-11-03 06:00] LABS: CALCIUM 8.1 mg/dL (8.5-10.1); CREATININE 1.3 mg/dL (0.6-1.0); GFR 39.1; MAGNESIUM 1.9 mg/dL (1.8-2.4); PHOSPHORUS 3.5 mg/dL (2.6-4.7); POTASSIUM 4.1 mmol/L (3.5-5.1)
[2021-11-03] MEDS: IPRATRPIUM/ALBUTEROL 0.5/2.5MG 3 ML NEBU. NEB SCH ×2 (07:41→11:34)
[2021-11-03] MEDS: BUDESONIDE 0.5 MG/2 ML NEBU. NEB SCH ×2 (07:42→20:00)
--- NOTE | 2021-11-03 09:54 | PDOC ---
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 Most likely this is upper GI tract or pancreaticobiliary origin SBO - s/p ex-lap on 10/27/2021 Right pleural effusion - s/p thoracentesis of 800 cc on 10/27/2021 Status post liver biopsy Peritoneal seeding cancer Nausea vomiting Anxiety, anemia, diverticulitis, hypertension, renal failure, UTI, mitral valve prolapse, cataracts, colostomy, hysterectomy, previous tobacco abuse. FEN - NPO on TPN PPX - PPI, heparin CODE - DNR/DNI Dispo - inpatient hospice referral, comfort care History of Present Illness History of Present Illness 11/03: Contrast injected through gastrostomy tube appears to be intraluminal. Having some discomfort in her abdomen. Good seal on her G-tube today. Overall very weak still requiring TPN limited bowel function passing a little bit of flatus. Wound care to see for consideration of further drain placement abdominal wall wound. 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 Most likely this is upper GI tract or pancreaticobiliary origin. After discussing the results with patient and her sister bedside they have requested comfort care and hospice referral. Given her functional status and malnutrition inability to take p.o. inpatient hospice referral would be appropriate 11/02: Postop day #5 now with gastrostomy tube leaking and some surgical site saturation. Tolerated 1 unit PRBC well in ED repeat hemogram. She still passing flatus. Very weak. Shortness of breath stable. 3: POD #5 had her gastrostomy tube disconnect accidentally, spilling gastric contents onto herself. SOB stable. Had a small BM overnight. No appetite as of yet. 10/31: POD #4 shortness of breath stable. Having some more nausea today no vomiting. She feels her stomach gurgling. No bowel movement. Hb dropped to 7.2, K improved from 5.6 down to 5 CR stable at 1.5. Still on TPN. 10/30: Postop day 3 shortness of breath stable no vomiting. No bowel movement as of yet. Significant gastrostomy tube output to drain. Mood is depressed today. 10/29: Seen postop day 2. NG tube pulled per surgery gastrostomy tube to suction. No bowel activity. Labs relatively stable will check hemogram and la bs given the morning. She has had some nausea and pain. Long discussion with family and patient about goals of care if pathology comes back with suspected peritoneal carcinomatosis. And they would prefer inpatient hospice care if that is the case. They would like time which is appropriate given her recent surgery. 10/28: Seen postop day 1. Shortness of breath is improved. Still with significant NG tube output. Pain is reasonably controlled. Based on the findings I have discussed potential positive care hospice on discharge with family. 10/27: Seen bedside. More dyspneic. No CP. Abdominal pain is 4-10. NG tube suction. To IR for 800cc drain right pleural effusion Consult pulmonology. To OR for omental biopsy lap lysis of lesions and gastrostomy tube 10/26: Patient seen and examined. PICC line and TPN 10/25: Patient seen and examined. She is alert and oriented. Still has NG to s uction. Still awaiting pathology report. 10/24: Patient seen and examined. She is resting with no apparent distress. Pathology results still pending 10/23: Patient seen and examined She is on D5 half-normal Chart reviewed Discussed with RN Discussed with case management I spoke with Dr. Banegas he is working on getting the pathology report done soon 10/22/2021 Patient seen and examined Discussed with RN Chart reviewed Discussed with case management I called oncology The plan is to get a liver biopsy today We suspect the elevated CA 25 level may be due to peritoneal cancer versus gastric cancer versus ovarian cancer (she has had her ovaries removed about 4 years ago however oncology explained she could still have ovarian CA) 10/21/2021 Patient seen and examined She still feels better with her NG in place CA-125 level is elevated to 582 Discussed with case management Discussed with RN 10/20/2021 Patient seen and examined We had to place an NG She states she feels better with the NG to suction Discussed with RN Chart reviewed Vitals/I&O Vitals/I&O: Vital Signs Date Time Temp Pulse Resp B/P (MAP) Pulse Ox O2 Delivery O2 Flow Rate FiO2 11/03/21 07:40 Nasal Cannula 11/03/21 05:55 98.1 108 18 159/71 (100) 98 2.0 98.1 I & O 11/02/21 11/02/21 11/03/21 15:00 23:00 07:00 Intake Total 0 ml 0 ml 0 ml Output Total 400 ml 500 ml Balance 0 ml -400 ml -500 ml Physical Exam General: Cooperative, Other (ill appearing ) Heart: Regular rate Lungs: Clear Abdomen: Other (g tube significant drainage around tube site) Extremities: No cyanosis, No edema Skin: No breakdown, No significant lesion Labs Labs: Laboratory Tests Test 11/02/21 11:33 11/02/21 17:28 11/03/21 00:03 11/03/21 05:10 Glucose (Fingerstick) 185 mg/dL (70-99) 169 mg/dL (70-99) 140 mg/dL (70-99) Sodium Level 139 mmol/L (136-145) Potassium Level 4.1 mmol/L (3.5-5.1) Chloride Level 101 mmol/L (98-107) Carbon Dioxide Level 28 mmol/L (21-32) Anion Gap 10 (6-14) Blood Urea Nitrogen 37 mg/dL (7-20) Creatinine 1.3 mg/dL (0.6-1.0) Estimated GFR (Cockcroft-Gault) 39.1 Glucose Level 189 mg/dL (70-99) Calcium Level 8.1 mg/dL (8.5-10.1) Phosphorus Level 3.5 mg/dL (2.6-4.7) Magnesium Level 1.9 mg/dL (1.8-2.4) Albumin 1.5 g/dL (3.4-5.0) Triglycerides Level 136 mg/dL (0-150) Test 11/03/21 05:20 Glucose (Fingerstick) 184 mg/dL (70-99) Assessment and Plan Assessmemt and Plan Problems Medical Problems: (1) Acute on chronic renal insufficiency Status: Acute (2) Ascites Status: Acute (3) Chronic diarrhea Status: Acute (4) Chronic vomiting Status: Acute (5) Partial small bowel obstruction Status: Acute Comment Review of Relevant I have reviewed the following items mariusz (where applicable) has been applied. Medications: Current Medications Medications (Trade) Dose Ordered Sig/Ella Route PRN Reason Start Time Stop Time Status Last Admin Dose Admin Sodium Chloride 20 meq/Sodium Phosphate 13.6 mmol/Potassium Acetate 10 meq/ Multivitamins 10 ml/Zinc/Copper/ Manganese/ Selenium 1 ml/ Total Parenteral Nutrition/Amino Acids/Dextrose/ Fat Emulsion Intravenous 1,512 ml @ 63 mls/hr TPN CONT IV 11/02/21 22:00 11/03/21 21:59 11/02/21 22:48 Justifications for Admission Other Justification YUKO CARBALLO MD Nov 03, 2021 09:54
[2021-11-03] MEDS ORDERED: SALIVA STIMULANT AGENT 44ML SPRAY BOTTLE. PO PRN (10:00)
--- NOTE | 2021-11-03 10:36 | PATHOLOGY ---
[facility] Accession Number: [id number] . 01 Material submitted: . PART A: liver - LIVER BIOPSY PART B: OMENTUM - OMENTUM BIOPSY PART C: liver - LEFT UPPER QUADRANT BIOPSY. Modifiers: left, upper . 01 Clinical history: . ASCITES, SMALL BOWEL OBSTRUCTION EXPLORATORY LAPAROSCOPY POSSILBLE LAPAROTOMY AND POSSIBLE BOWEL RESECTION . 02 Diagnosis: A. Liver biopsy: - METASTATIC ADENOCARCINOMA, FOCAL. . B. Segments of fibroadipose tissue, omentum biopsy: - METASTATIC ADENOCARCINOMA, MODERATELY DIFFERENTIATED. SEE COMMENT. . C. Segment of fibroadipose tissue, left upper quadrant biopsy: - METASTATIC ADENOCARCINOMA, MODERATELY DIFFERENTIATED. (JPM:eitan; 11/02/2021) S 11/02/2021 1528 Local . 02 Comment: Sections of the omentum and left upper quadrant biopsy appear similar and reveal a metastatic neoplasm. The tumor cells have an acinar and small solid nested appearance and are associated with a reactive desmoplastic stroma. The tumor cells have modest amounts of eosinophilic cytoplasm. Many of the tumor cells have intracytoplasmic vacuoles, some of which are clear, many of which contain eosinophilic material or ocassionally pale basophilic mucinous material. The tumor cells possess enlarged, moderately pleomorphic hyperchromatic nuclei. There are mitotic figures present. A panel of immunoperoxidase stains is obtained on B1 and yields the following results: . Cytokeratin 7: Tumor cells diffusely positive. Cytokeratin 20: Tumor cells negative. CDX2: Tumor cells positive. PAX-8: Tumor cells negative. GATA3: Tumor cells negative. TTF-1: Tumor cells positive. WT-1: Tumor cells show absent nuclear staining. Chromogranin: Tumor cells negative. Synaptophysin: Tumor cells negative. Thyroglobulin: Tumor cells show vacuolar pattern positivity. Napsin A: Few tumor cells focally positive. . The morphologic immunophenotypic findings are supportive of the diagnosis of a metastatic moderately differentiated adenocarcinoma. Cytokeratin 7 positive, cytokeratin 20 negative carcinomas include lung, thyroid, pancreaticobiliary tract, and upper gastrointestinal tract including esophagus, stomach, and small intestine. The presence of TTF-1 positivity is most commonly associated with carcinomas of the lung and thyroid. Thyroglobulin positivity is obviously associated with thyroid carcinomas. The presence of CDX2 positivity, however, is more suggestive of upper gastrointestinal tract or pancreaticobiliary tract origin. Certainly, a lung primary or thyroid primary should be excluded, but I cannot exclude the possibility of a primary upper gastrointestinal tract or pancreaticobiliary tract origin in which there is aberrant TTF-1 expression. Please correlate clinically. The case is also examined by Dr. Gillette and Dr. Singh, who concur with the diagnosis. Results are discussed with Dr Cevallos on 10/30/21. (JPM:registered dietician/eitan; 11/02/2021) . . Special stains performed: Immunoperoxidase stains all on B1; CK7, CK20, CDX2, PAX8, GATA3, TTF-1, WT-1, thyroglobulin, napsin A, synaptophysin and chromogranin . 02 Electronically signed: . Hernando Banegas MD, Pathologist NPI- [id number] . 01 Gross description: . A. The specimen is received in formalin, labeled "Viji Angeloing, liver biopsy". Received is a segment of pale prado tissue measuring 1.4 x 0.7 x 0.1 cm in greatest dimensions. The specimen is bisected and entirely submitted in cassette A1. . B. The specimen is received in formalin, labeled "Viji Leihsing, omentum biopsy". Received are two segments of yellow-prado tissue measuring 2.1 x 1.7 x 0.5 cm in aggregate dimensions. Each segment is trisected and the specimen is submitted entirely in cassette B1. . C. The specimen is received in formalin, labeled "Viji Leihsing, left upper quadrant biopsy". Received is a segment of yellow-prado lobulated tissue measuring 1.8 x 1.3 x 0.7 cm in greatest dimensions. Sectioning reveals bright yellow, lobulated cut surfaces. The specimen is bisected and entirely submitted in cassette C1. (CAA; 10/28/2021) QAC/QAC 10/28/[address] [place] [address] . 02 Pathologist provided ICD-10: C73, C48.1, C49.4 . 02 CPT . 889188, 809321, 620441, X21530, [id number] Specimen Comment: A courtesy copy of this report has been sent to [phone] Specimen Comment: Report sent to Specimen Comment: A duplicate report has been generated due to demographic updates. Performed at: 01 [facility] [address] [facility] [address], [place] [id number] MD Yoshi Black MD Phone: [phone] Performed at: 02 [facility] [address] [place], [place] [id number] MD Hernando Banegas MD Phone: [phone]
--- NOTE | 2021-11-03 10:43 | PDOC ---
PULMONARY PROGRESS NOTES DATE: 11/03/21 TIME: 10:42 Subjective Patient remains very weak and lethargic. Currently on nasal cannula. Vitals Vital Signs Date Time Temp Pulse Resp B/P (MAP) Pulse Ox O2 Delivery O2 Flow Rate FiO2 11/03/21 07:40 Nasal Cannula 11/03/21 05:55 98.1 108 18 159/71 (100) 98 2.0 98.1 ROS: No Chest Pain, No Abdominal Pain, No Increase Cough General: No acute distress, Lethargic Lungs: Clear Abdomen: Soft, Other (Tender) Extremities: Other (Trace pitting edema) Skin: Warm, Dry Labs Laboratory Tests Test 11/01/21 12:09 11/01/21 13:15 11/01/21 23:36 11/02/21 05:10 Glucose (Fingerstick) 153 mg/dL (70-99) 150 mg/dL (70-99) White Blood Count 10.1 x10^3/uL (4.0-11.0) 10.0 x10^3/uL (4.0-11.0) Red Blood Count 2.24 x10^6/uL (3.50-5.40) 2.95 x10^6/uL (3.50-5.40) Hemoglobin 6.8 g/dL (12.0-15.5) 8.8 g/dL (12.0-15.5) Hematocrit 21.0 % (36.0-47.0) 27.6 % (36.0-47.0) Mean Corpuscular Volume 94 fL (79-100) 93 fL (79-100) Mean Corpuscular Hemoglobin 30 pg (25-35) 30 pg (25-35) Mean Corpuscular Hemoglobin Concent 33 g/dL (31-37) 32 g/dL (31-37) Red Cell Distribution Width 16.2 % (11.5-14.5) 16.2 % (11.5-14.5) Platelet Count 344 x10^3/uL (140-400) 371 x10^3/uL (140-400) Sodium Level 138 mmol/L (136-145) 137 mmol/L (136-145) Potassium Level 4.9 mmol/L (3.5-5.1) 4.3 mmol/L (3.5-5.1) Chloride Level 102 mmol/L (98-107) 101 mmol/L (98-107) Carbon Dioxide Level 31 mmol/L (21-32) 29 mmol/L (21-32) Anion Gap 5 (6-14) 7 (6-14) Blood Urea Nitrogen 39 mg/dL (7-20) 38 mg/dL (7-20) Creatinine 1.3 mg/dL (0.6-1.0) 1.3 mg/dL (0.6-1.0) Estimated GFR (Cockcroft-Gault) 39.1 39.1 Glucose Level 118 mg/dL (70-99) 175 mg/dL (70-99) Calcium Level 7.1 mg/dL (8.5-10.1) 8.2 mg/dL (8.5-10.1) Magnesium Level 2.1 mg/dL (1.8-2.4) 2.1 mg/dL (1.8-2.4) Phosphorus Level 3.2 mg/dL (2.6-4.7) Test 11/02/21 11:33 11/02/21 17:28 11/03/21 00:03 11/03/21 05:10 Glucose (Fingerstick) 185 mg/dL (70-99) 169 mg/dL (70-99) 140 mg/dL (70-99) Sodium Level 139 mmol/L (136-145) Potassium Level 4.1 mmol/L (3.5-5.1) Chloride Level 101 mmol/L (98-107) Carbon Dioxide Level 28 mmol/L (21-32) Anion Gap 10 (6-14) Blood Urea Nitrogen 37 mg/dL (7-20) Creatinine 1.3 mg/dL (0.6-1.0) Estimated GFR (Cockcroft-Gault) 39.1 Glucose Level 189 mg/dL (70-99) Calcium Level 8.1 mg/dL (8.5-10.1) Phosphorus Level 3.5 mg/dL (2.6-4.7) Magnesium Level 1.9 mg/dL (1.8-2.4) Albumin 1.5 g/dL (3.4-5.0) Triglycerides Level 136 mg/dL (0-150) Test 11/03/21 05:20 Glucose (Fingerstick) 184 mg/dL (70-99) Laboratory Tests Test 11/02/21 11:33 11/02/21 17:28 11/03/21 00:03 11/03/21 05:10 Glucose (Fingerstick) 185 mg/dL (70-99) 169 mg/dL (70-99) 140 mg/dL (70-99) Sodium Level 139 mmol/L (136-145) Potassium Level 4.1 mmol/L (3.5-5.1) Chloride Level 101 mmol/L (98-107) Carbon Dioxide Level 28 mmol/L (21-32) Anion Gap 10 (6-14) Blood Urea Nitrogen 37 mg/dL (7-20) Creatinine 1.3 mg/dL (0.6-1.0) Estimated GFR (Cockcroft-Gault) 39.1 Glucose Level 189 mg/dL (70-99) Calcium Level 8.1 mg/dL (8.5-10.1) Phosphorus Level 3.5 mg/dL (2.6-4.7) Magnesium Level 1.9 mg/dL (1.8-2.4) Albumin 1.5 g/dL (3.4-5.0) Triglycerides Level 136 mg/dL (0-150) Test 11/03/21 05:20 Glucose (Fingerstick) 184 mg/dL (70-99) Medications Active Scripts Medications Dose Route/Sig Max Daily Dose Days Date Category Dose Instructions Ondansetron Odt (Ondansetron) 4 Mg Tab.rapdis 1 Tab PO PRN Q6-8HRS 10/14/21 Rx Dicyclomine Hcl 10 Mg Capsule 10 Mg PO PRN QID PRN 10/14/21 Rx Stool Softener (Docusate Sodium) 50 Mg Capsule 1 Cap PO DAILY PRN 30 10/04/21 Reported Tylenol (Acetaminophen) 325 Mg Tablet 1-2 Tab PO HS 10/04/21 Reported Perphen-Amitrip 2 Mg-10 Mg Tab (Perphenazine/Amitriptyline Hcl) 1 Each Tablet 1 Tab PO QHS 10/04/21 Reported Methotrexate (Methotrexate Sodium) 2.5 Mg Tablet 10 Tab PO Tuesday10/04/21 Reported Folic Acid 0.8 Mg Capsule 1 Cap PO DAILY 30 10/04/21 Reported Vitamin D3 (Vitamin D) 25 Mcg Tablet 25 Mcg PO DAILY 10/04/21 Reported 1,000 UNITS = 25 MCG Amlodipine Besylate 2.5 Mg Tablet 2.5 Mg PO DAILY 02/07/19 Reported Vit C-Quyen Hips 500 mg Chew Tb (Ascorbic Acid/Ascorbate Sodium) 500 Mg Tab.chew 500 Mg PO DAILY 02/07/19 Reported Probiotic Acidophilus (Lactobacillus Acidophilus) 1 Each Tablet 1 Each PO DAILY 02/07/19 Reported Metoprolol Tartrate 50 Mg Tablet 50 Mg PO BID 02/07/19 Reported Omeprazole 20 Mg Tablet.dr 20 Mg PO DAILY 02/07/19 Reported Multivitamins (Multivitamin) 1 Each Tablet 1 Tab PO DAILY 12/20/17 Reported Impression . 1. Acute hypoxic respiratory failure, likely secondary to bilateral pleural effusions and abdominal process. Status post thoracentesis 10/27/2021 with 700 cc of fluid removal. --- 2. The patient with abnormal CT chest and abdomen and pelvis. She has multiple hypodense lesions in the liver. She comes in with small-bowel obstruction. Peritoneal carcinomatosis is the concern. There is abnormal right upper lobe parenchymal density 3.1 cm with some calcification. This was also present in imaging study from 2018 and is likely benign. She did have a liver biopsy and I have not seen the outpatient results yet. 3. Small-bowel obstruction and liver lesions. Status post expiratory laparotomy 10/27/2021 with omental biopsy 4. Forty-five years of tobaccoism. Likely underlying chronic obstructive pulmonary disease. 5. Bilateral pleural effusions seen on the CT chest, more on the right than on the left, likely secondary to low oncotic pressure. Cannot exclude malignant effusion. 6. Severe hypoalbuminemia contributing to low oncotic pressure and pleural effusions. Plan . Continue supplemental oxygen to keep oxygen saturations greater than 92%, wean as tolerated Status post right-sided thoracentesis 10/28/2021 with 700 cc fluid removed, follow fluid analysis--negative. Repeat chest x-ray shows some reactive accumulation of right lower lobe effusion. There is also a small effusion on the left base as well. Will monitor closely for now. Nebs as needed Follow surgery recommendations, status post exploratory laparotomy with omental biopsy follow-up pathology final liver biopsy results--(pathology negative for neoplasm) I-S at bedside Continue TPN for nutritional support PT/OT, out of bed as tolerated DVT/GI prophylaxis Discussed with ZUNILDA VILCHIS MD Nov 03, 2021 10:43
[2021-11-03 10:52] VITALS: BP 149/66
[2021-11-03] MEDS: ONDANSETRON PF 4 MG/2 ML VIAL. IVP PRN ×2 (11:02→17:41)
--- NOTE | 2021-11-03 11:17 | PDOC ---
Date of Service: DATE: 11/03/21 TIME: 11:11 Subjective: Subjective: "Not too good." Endorses abd pain, nausea, shortness of breath, weakness. Thinks G tube is better today. Objective: Objective: D/w nurse - G tube better today. Vital Signs: Vital Signs Date Time Temp Pulse Resp B/P (MAP) Pulse Ox O2 Delivery O2 Flow Rate FiO2 11/03/21 11:02 20 95 Nasal Cannula 2.0 11/03/21 10:52 97.2 113 149/66 (93) 97.2 Labs: Laboratory Tests Test 11/02/21 11:33 11/02/21 17:28 11/03/21 00:03 11/03/21 05:20 Glucose (Fingerstick) 185 mg/dL (70-99) 169 mg/dL (70-99) 140 mg/dL (70-99) 184 mg/dL (70-99) Material submitted: . PART A: liver - LIVER BIOPSY PART B: OMENTUM - OMENTUM BIOPSY PART C: liver - LEFT UPPER QUADRANT BIOPSY. Modifiers: left, upper Clinical history: . ASCITES, SMALL BOWEL OBSTRUCTION EXPLORATORY LAPAROSCOPY POSSILBLE LAPAROTOMY AND POSSIBLE BOWEL RESECTION Diagnosis: A. Liver biopsy: - METASTATIC ADENOCARCINOMA, FOCAL. B. Segments of fibroadipose tissue, omentum biopsy: - METASTATIC ADENOCARCINOMA, MODERATELY DIFFERENTIATED. SEE COMMENT. C. Segment of fibroadipose tissue, left upper quadrant biopsy: - METASTATIC ADENOCARCINOMA, MODERATELY DIFFERENTIATED. Comment: Sections of the omentum and left upper quadrant biopsy appear similar and reveal a metastatic neoplasm. The tumor cells have an acinar and small solid nested appearance and are associated with a reactive desmoplastic stroma. The tumor cells have modest amounts of eosinophilic cytoplasm. Many of the tumor cells have intracytoplasmic vacuoles, some of which are clear, many of which contain eosinophilic material or ocassionally pale basophilic mucinous material. The tumor cells possess enlarged, moderately pleomorphic hyperchromatic nuclei. There are mitotic figures present. A panel of immunoperoxidase stains is obtained on B1 and yields the following results: Imaging: Abd X-Ray 11/02 FINDINGS/ IMPRESSION: There is no free intraperitoneal air. Contrast injected through gastrostomy tube appears to be intraluminal. High attenuation within the left upper quadrant abdomen may be external to the patient. This does not demonstrate the same density as the intraluminal contrast. Repeat radiographs could be of benefit if clinically warranted. PE: GEN: appears chronically ill HEENT: mouth dry LUNGS: NC 2L HEART: tachycardic ABD: abd binder, tender, G tube bilious NEURO/PSYCH: A & O 3 A/P: SBO, carcinomatosis S/p ex lap w/ omental and liver biopsies, G tube placement -- Path noted after I saw pt this morning - see above - metastatic adenocarcinoma. Previous discussion of inpt Hospice, await decisions moving forward. Update from Dr. Chiu who met with family - they wish for comfort care/Hospice. Justicifation of Admission Dx: Justifications for Admission: Justification of Admission Dx: Yes IRASEMA MCCARTY Nov 03, 2021 11:17
--- NOTE | 2021-11-03 11:36 | PDOC ---
SURGICAL PROGRESS NOTE DATE: 11/03/21 TIME: 11:33 Subjective asleep did not awaken her Vital Signs Vital Signs Date Time Temp Pulse Resp B/P (MAP) Pulse Ox O2 Delivery O2 Flow Rate FiO2 11/03/21 11:13 113 149/66 11/03/21 11:02 20 95 Nasal Cannula 2.0 11/03/21 10:52 97.2 97.2 I&O Intake and Output 11/03/21 07:00 Intake Total 0 ml Output Total 900 ml Balance -900 ml Intake Oral 0 ml Output Urine Total 750 ml Drainage Total 150 ml General: Other (asleep ) Labs Laboratory Tests Test 11/01/21 12:09 11/01/21 13:15 11/01/21 23:36 11/02/21 05:10 Glucose (Fingerstick) 153 mg/dL (70-99) 150 mg/dL (70-99) White Blood Count 10.1 x10^3/uL (4.0-11.0) 10.0 x10^3/uL (4.0-11.0) Red Blood Count 2.24 x10^6/uL (3.50-5.40) 2.95 x10^6/uL (3.50-5.40) Hemoglobin 6.8 g/dL (12.0-15.5) 8.8 g/dL (12.0-15.5) Hematocrit 21.0 % (36.0-47.0) 27.6 % (36.0-47.0) Mean Corpuscular Volume 94 fL (79-100) 93 fL (79-100) Mean Corpuscular Hemoglobin 30 pg (25-35) 30 pg (25-35) Mean Corpuscular Hemoglobin Concent 33 g/dL (31-37) 32 g/dL (31-37) Red Cell Distribution Width 16.2 % (11.5-14.5) 16.2 % (11.5-14.5) Platelet Count 344 x10^3/uL (140-400) 371 x10^3/uL (140-400) Sodium Level 138 mmol/L (136-145) 137 mmol/L (136-145) Potassium Level 4.9 mmol/L (3.5-5.1) 4.3 mmol/L (3.5-5.1) Chloride Level 102 mmol/L (98-107) 101 mmol/L (98-107) Carbon Dioxide Level 31 mmol/L (21-32) 29 mmol/L (21-32) Anion Gap 5 (6-14) 7 (6-14) Blood Urea Nitrogen 39 mg/dL (7-20) 38 mg/dL (7-20) Creatinine 1.3 mg/dL (0.6-1.0) 1.3 mg/dL (0.6-1.0) Estimated GFR (Cockcroft-Gault) 39.1 39.1 Glucose Level 118 mg/dL (70-99) 175 mg/dL (70-99) Calcium Level 7.1 mg/dL (8.5-10.1) 8.2 mg/dL (8.5-10.1) Magnesium Level 2.1 mg/dL (1.8-2.4) 2.1 mg/dL (1.8-2.4) Phosphorus Level 3.2 mg/dL (2.6-4.7) Test 11/02/21 11:33 11/02/21 17:28 11/03/21 00:03 11/03/21 05:10 Glucose (Fingerstick) 185 mg/dL (70-99) 169 mg/dL (70-99) 140 mg/dL (70-99) Sodium Level 139 mmol/L (136-145) Potassium Level 4.1 mmol/L (3.5-5.1) Chloride Level 101 mmol/L (98-107) Carbon Dioxide Level 28 mmol/L (21-32) Anion Gap 10 (6-14) Blood Urea Nitrogen 37 mg/dL (7-20) Creatinine 1.3 mg/dL (0.6-1.0) Estimated GFR (Cockcroft-Gault) 39.1 Glucose Level 189 mg/dL (70-99) Calcium Level 8.1 mg/dL (8.5-10.1) Phosphorus Level 3.5 mg/dL (2.6-4.7) Magnesium Level 1.9 mg/dL (1.8-2.4) Albumin 1.5 g/dL (3.4-5.0) Triglycerides Level 136 mg/dL (0-150) Test 11/03/21 05:20 Glucose (Fingerstick) 184 mg/dL (70-99) Laboratory Tests Test 11/02/21 17:28 11/03/21 00:03 11/03/21 05:10 11/03/21 05:20 Glucose (Fingerstick) 169 mg/dL (70-99) 140 mg/dL (70-99) 184 mg/dL (70-99) Sodium Level 139 mmol/L (136-145) Potassium Level 4.1 mmol/L (3.5-5.1) Chloride Level 101 mmol/L (98-107) Carbon Dioxide Level 28 mmol/L (21-32) Anion Gap 10 (6-14) Blood Urea Nitrogen 37 mg/dL (7-20) Creatinine 1.3 mg/dL (0.6-1.0) Estimated GFR (Cockcroft-Gault) 39.1 Glucose Level 189 mg/dL (70-99) Calcium Level 8.1 mg/dL (8.5-10.1) Phosphorus Level 3.5 mg/dL (2.6-4.7) Magnesium Level 1.9 mg/dL (1.8-2.4) Albumin 1.5 g/dL (3.4-5.0) Triglycerides Level 136 mg/dL (0-150) Problem List Problems Medical Problems: (1) Acute on chronic renal insufficiency Status: Acute (2) Ascites Status: Acute (3) Chronic diarrhea Status: Acute (4) Chronic vomiting Status: Acute (5) Partial small bowel obstruction Status: Acute Assessment/Plan continue supportive care, path pending consider hospice eval Justicifation of Admission Dx: Justifications for Admission: Justification of Admission Dx: Yes 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
--- NOTE | 2021-11-03 12:31 | NUR ---
SS following up with discharge planning. SS reviewed pt chart and discussed with pt RN. Pt is currently requiring oxygen at two liters nasal canula. TPN discontinued. Pt NPO. Inpatient hospice referral requested. Pt's family requesting [facility], ; fax [phone]. SS met with pt's family and explained that the [facility] does not currently have contract for GIP with [facility] and contract would need to be obtained by administration prior to initiating services. Pt's family reported understanding and requested that SS send referral to [facility]. Referral phoned and faxed as requested. [facility] and [facility] provided as back up options. Pt now comfort measures only. CODE status now DNR. SS will continue to follow for discharge planning.
[2021-11-03 14:45] VITALS: BP 110/57
[2021-11-03] MEDS: IV NORMAL SALINE 1000ML BAG 1,000 ML IV SCH (20:30)
[2021-11-03 22:26] VITALS: BP 148/70
[2021-11-04] MEDS: PROCHLORPERAZINE 10 MG/2 ML VIAL. IV PRN ×3 (02:03→19:12)
[2021-11-04] MEDS: MORPHINE SULFATE 2 MG/ML INJ. IVP PRN ×2 (02:04→12:30)
--- NOTE | 2021-11-04 09:47 | PDOC ---
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 Most likely this is upper GI tract or pancreaticobiliary origin SBO - s/p ex-lap on 10/27/2021 Right pleural effusion - s/p thoracentesis of 800 cc on 10/27/2021 Atrial fibrillation with RVR - cardiology was following, on comfort measures now Status post liver biopsy Peritoneal seeding cancer Nausea vomiting Anxiety, anemia, diverticulitis, hypertension, renal failure, UTI, mitral valve prolapse, cataracts, colostomy, hysterectomy, previous tobacco abuse. FEN - NPO on TPN PPX - PPI, heparin CODE - DNR/DNI Dispo - inpatient hospice referral, comfort care History of Present Illness History of Present Illness 11/04: Per patient preference she has on comfort measures awaiting inpatient hospice evaluation. Remains in A. fib. She is very sleepy. Refusing to have additional morphine despite her respirations over 20. She just wants to sleep. She does not want to express any complaints, and is asking for him to be held. I have readjusted her bed.. 11/03: Contrast injected through gastrostomy tube appears to be intraluminal. Having some discomfort in her abdomen. Good seal on her G-tube today. Overall very weak still requiring TPN limited bowel function passing a little bit of flatus. Wound care to see for consideration of further drain placement abdominal wall wound. 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 Most likely this is upper GI tract or pancreaticobiliary origin. After discussing the results with patient and her sister bedside they have requ ested comfort care and hospice referral. Given her functional status and malnutrition inability to take p.o. inpatient hospice referral would be appropriate 11/02: Postop day #5 now with gastrostomy tube leaking and some surgical site saturation. Tolerated 1 unit PRBC well in ED repeat hemogram. She still passing flatus. Very weak. Shortness of breath stable. 11/01: POD #5 had her gastrostomy tube disconnect accidentally, spilling gastric contents onto herself. SOB stable. Had a small BM overnight. No appetite as of yet. 10/31: POD #4 shortness of breath stable. Having some more nausea today no vomiting. She feels her stomach gurgling. No bowel movement. Hb dropped to 7.2, K improved from 5.6 down to 5 CR stable at 1.5. Still on TPN. 10/30: Postop day 3 shortness of breath stable no vomiting. No bowel movement as of yet. Significant gastrostomy tube output to drain. Mood is depressed today. 10/29: Seen postop day 2. NG tube pulled per surgery gastrostomy tube to suction. No bowel activity. Labs relatively stable will check hemogram and labs given the morning. She has had some nausea and pain. Long discussion with family and patient about goals of care if pathology comes back with suspected peritoneal carcinomatosis. And they would prefer inpatient hospice care if that is the case. They would like time which is appropriate given her recent surgery. 10/28: Seen postop day 1. Shortness of breath is improved. Still with significant NG tube output. Pain is reasonably controlled. Based on the findi ngs I have discussed potential positive care hospice on discharge with family. 10/27: Seen bedside. More dyspneic. No CP. Abdominal pain is 4-10. NG tube suction. To IR for 800cc drain right pleural effusion Consult pulmonology. To OR for omental biopsy lap lysis of lesions and gastrostomy tube 10/26: Patient seen and examined. PICC line and TPN 10/25: Patient seen and examined. She is alert and oriented. Still has NG to suction. Still awaiting pathology report. 10/24: Patient seen and examined. She is resting with no apparent distress. Pathology results still pending 10/23: Patient seen and examined She is on D5 half-normal Chart reviewed Discussed with RN Discussed with case management I spoke with Dr. Banegas he is working on getting the pathology report done soon 10/22/2021 Patient seen and examined Discussed with RN Chart reviewed Discussed with case management I called oncology The plan is to get a liver biopsy today We suspect the elevated CA 25 level may be due to peritoneal cancer versus gastric cancer versus ovarian cancer (she has had her ovaries removed about 4 years ago however oncology explained she could still have ovarian CA) 10/21/2021 Patient seen and examined She still feels better with her NG in place CA-125 level is elevated to 582 Discussed with case management Discussed with RN 10/20/2021 Patient seen and examined We had to place an NG She states she feels better with the NG to suction Discussed with RN Chart reviewed Vitals/I&O Vitals/I&O: Vital Signs Date Time Temp Pulse Resp B/P (MAP) Pulse Ox O2 Delivery O2 Flow Rate FiO2 11/04/21 03:40 97 22 96 Nasal Cannula 2.0 11/03/21 22:26 99.7 148/70 (96) 99.7 I & O 11/03/21 11/03/21 11/04/21 15:00 23:00 07:00 Intake Total 1512 ml 0 ml Output Total 250 ml Balance 1512 ml -250 ml Physical Exam General: Other (asleep ) Heart: Regular rate Lungs: Clear Abdomen: Other (g tube significant drainage around tube site) Extremities: No cyanosis, No edema Skin: No breakdown, No significant lesion Assessment and Plan Assessmemt and Plan Problems Medical Problems: (1) Acute on chronic renal insufficiency Status: Acute (2) Ascites Status: Acute (3) Chronic diarrhea Status: Acute (4) Chronic vomiting Status: Acute (5) Partial small bowel obstruction Status: Acute Comment Review of Relevant I have reviewed the following items mariusz (where applicable) has been applied. Justifications for Admission Other Justification YUKO CARBALLO MD Nov 04, 2021 09:47
--- NOTE | 2021-11-04 10:10 | PDOC ---
PULMONARY PROGRESS NOTES DATE: 11/04/21 TIME: 10:07 Subjective Patient remains very weak and lethargic. Currently on nasal cannula. Vitals Vital Signs Date Time Temp Pulse Resp B/P (MAP) Pulse Ox O2 Delivery O2 Flow Rate FiO2 11/04/21 03:40 97 22 96 Nasal Cannula 2.0 11/03/21 22:26 99.7 148/70 (96) 99.7 ROS: No Chest Pain, No Abdominal Pain, No Increase Cough General: No acute distress, Lethargic Lungs: Clear Abdomen: Soft, Other (Tender) Extremities: Other (Trace pitting edema) Skin: Warm, Dry Labs Laboratory Tests Test 11/02/21 11:33 11/02/21 17:28 11/03/21 00:03 11/03/21 05:10 Glucose (Fingerstick) 185 mg/dL (70-99) 169 mg/dL (70-99) 140 mg/dL (70-99) Sodium Level 139 mmol/L (136-145) Potassium Level 4.1 mmol/L (3.5-5.1) Chloride Level 101 mmol/L (98-107) Carbon Dioxide Level 28 mmol/L (21-32) Anion Gap 10 (6-14) Blood Urea Nitrogen 37 mg/dL (7-20) Creatinine 1.3 mg/dL (0.6-1.0) Estimated GFR (Cockcroft-Gault) 39.1 Glucose Level 189 mg/dL (70-99) Calcium Level 8.1 mg/dL (8.5-10.1) Phosphorus Level 3.5 mg/dL (2.6-4.7) Magnesium Level 1.9 mg/dL (1.8-2.4) Albumin 1.5 g/dL (3.4-5.0) Triglycerides Level 136 mg/dL (0-150) Test 11/03/21 05:20 Glucose (Fingerstick) 184 mg/dL (70-99) Medications Active Scripts Medications Dose Route/Sig Max Daily Dose Days Date Category Dose Instructions Ondansetron Odt (Ondansetron) 4 Mg Tab.rapdis 1 Tab PO PRN Q6-8HRS 10/14/21 Rx Dicyclomine Hcl 10 Mg Capsule 10 Mg PO PRN QID PRN 10/14/21 Rx Stool Softener (Docusate Sodium) 50 Mg Capsule 1 Cap PO DAILY PRN 30 10/04/21 Reported Tylenol (Acetaminophen) 325 Mg Tablet 1-2 Tab PO HS 10/04/21 Reported Perphen-Amitrip 2 Mg-10 Mg Tab (Perphenazine/Amitriptyline Hcl) 1 Each Tablet 1 Tab PO QHS 10/04/21 Reported Methotrexate (Methotrexate Sodium) 2.5 Mg Tablet 10 Tab PO Tuesday10/04/21 Reported Folic Acid 0.8 Mg Capsule 1 Cap PO DAILY 30 10/04/21 Reported Vitamin D3 (Vitamin D) 25 Mcg Tablet 25 Mcg PO DAILY 10/04/21 Reported 1,000 UNITS = 25 MCG Amlodipine Besylate 2.5 Mg Tablet 2.5 Mg PO DAILY 02/07/19 Reported Vit C-Quyen Hips 500 mg Chew Tb (Ascorbic Acid/Ascorbate Sodium) 500 Mg Tab.chew 500 Mg PO DAILY 02/07/19 Reported Probiotic Acidophilus (Lactobacillus Acidophilus) 1 Each Tablet 1 Each PO DAILY 02/07/19 Reported Metoprolol Tartrate 50 Mg Tablet 50 Mg PO BID 02/07/19 Reported Omeprazole 20 Mg Tablet.dr 20 Mg PO DAILY 02/07/19 Reported Multivitamins (Multivitamin) 1 Each Tablet 1 Tab PO DAILY 12/20/17 Reported Impression . 1. Acute hypoxic respiratory failure, likely secondary to bilateral pleural effusions and abdominal process. Status post thoracentesis 10/27/2021 with 700 cc of fluid removal. --- 2. The patient with abnormal CT chest and abdomen and pelvis. She has multiple hypodense lesions in the liver. She comes in with small-bowel obstruction. Peritoneal carcinomatosis is the concern. There is abnormal right upper lobe parenchymal density 3.1 cm with some calcification. This was also present in imaging study from 2018 and is likely benign. She did have a liver biopsy and I have not seen the outpatient results yet. 3. Small-bowel obstruction and liver lesions. Status post expiratory laparotomy 10/27/2021 with omental biopsy 4. Forty-five years of tobaccoism. Likely underlying chronic obstructive pulmonary disease. 5. Bilateral pleural effusions seen on the CT chest, more on the right than on the left, likely secondary to low oncotic pressure. Cannot exclude malignant effusion. 6. Severe hypoalbuminemia contributing to low oncotic pressure and pleural effusions. Plan . Continue supplemental oxygen to keep oxygen saturations greater than 92%, wean as tolerated Status post right-sided thoracentesis 10/28/2021 with 700 cc fluid removed, follow fluid analysis--negative. Repeat chest x-ray shows some reactive accumulation of right lower lobe effusion. There is also a small effusion on the left base as well. Will monitor closely for now. Nebs as needed Follow surgery recommendations, status post exploratory laparotomy with omental biopsy follow-up pathology final liver biopsy results--(pathology negative for neoplasm) I-S at bedside Continue TPN for nutritional support PT/OT, out of bed as tolerated DVT/GI prophylaxis Discussed with RN and patient's ZUNILDA RANGEL MD Nov 04, 2021 10:10
--- NOTE | 2021-11-04 10:44 | PDOC ---
Date of Service: DATE: 11/04/21 TIME: 10:42 Objective: Objective: Reviewed chart, d/w Dr. Puente. Vital Signs: Vital Signs Date Time Temp Pulse Resp B/P (MAP) Pulse Ox O2 Delivery O2 Flow Rate FiO2 11/04/21 03:40 97 22 96 Nasal Cannula 2.0 11/03/21 22:26 99.7 148/70 (96) 99.7 PE: GEN: resting - didn't disturb A/P: SBO, carcinomatosis (path w/ metastatic adenocarcinoma) -- Plans for Hospice noted, GI will sign off. Justicifation of Admission Dx: Justifications for Admission: Justification of Admission Dx: Yes IRASEMA MCCARTY Nov 04, 2021 10:44
[2021-11-04 11:00] VITALS: BP 119/56
--- NOTE | 2021-11-04 11:14 | PDOC ---
SURGICAL PROGRESS NOTE DATE: 11/04/21 TIME: 11:13 Subjective Pt appears fatigued Vital Signs Vital Signs Date Time Temp Pulse Resp B/P (MAP) Pulse Ox O2 Delivery O2 Flow Rate FiO2 11/04/21 03:40 97 22 96 Nasal Cannula 2.0 11/03/21 22:26 99.7 148/70 (96) 99.7 I&O Intake and Output 11/04/21 07:00 Intake Total 1512 ml Output Total 250 ml Balance 1262 ml Intake Oral 0 ml IV Total 1512 ml Output Urine Total 250 ml General: Alert, Oriented X3, Cooperative, mild distress Abdomen: Soft, No tenderness Labs Laboratory Tests Test 11/02/21 11:33 11/02/21 17:28 11/03/21 00:03 11/03/21 05:10 Glucose (Fingerstick) 185 mg/dL (70-99) 169 mg/dL (70-99) 140 mg/dL (70-99) Sodium Level 139 mmol/L (136-145) Potassium Level 4.1 mmol/L (3.5-5.1) Chloride Level 101 mmol/L (98-107) Carbon Dioxide Level 28 mmol/L (21-32) Anion Gap 10 (6-14) Blood Urea Nitrogen 37 mg/dL (7-20) Creatinine 1.3 mg/dL (0.6-1.0) Estimated GFR (Cockcroft-Gault) 39.1 Glucose Level 189 mg/dL (70-99) Calcium Level 8.1 mg/dL (8.5-10.1) Phosphorus Level 3.5 mg/dL (2.6-4.7) Magnesium Level 1.9 mg/dL (1.8-2.4) Albumin 1.5 g/dL (3.4-5.0) Triglycerides Level 136 mg/dL (0-150) Test 11/03/21 05:20 Glucose (Fingerstick) 184 mg/dL (70-99) Problem List Problems Medical Problems: (1) Acute on chronic renal insufficiency Status: Acute (2) Ascites Status: Acute (3) Chronic diarrhea Status: Acute (4) Chronic vomiting Status: Acute (5) Partial small bowel obstruction Status: Acute Assessment/Plan s/p xlap reviewed xlap c/w diffuse metastatic adenocarcinoma from UGI source agree with hospice plans will sign off, but please call for questions. Willardtion of Admission Dx: Justifications for Admission: Justification of Admission Dx: Yes ZEYNEP GARCIA MD Nov 04, 2021 11:14
--- NOTE | 2021-11-04 11:58 | NUR ---
SS following up with discharge planning. SS reviewed pt chart and discussed with pt RN. Pt is comfort measures only. DNR. SS reached out to [facility] to follow up with referral for inpatient hospice. SS received call that they are reviewing and will reach out to Case animal maintenance supervisor. Referral was also sent to [facility], ; fax [phone]. SS was informed that [facility] is meeting with family at 1300 today. SS will continue to follow for discharge planning.
[2021-11-04] MEDS: fentaNYL PF VIAL 100 MCG/2 ML VIAL IVP PRN (15:11)
[2021-11-04] MEDS: ONDANSETRON PF 4 MG/2 ML VIAL. IVP PRN (17:20)
[2021-11-04 19:00] VITALS: BP 123/55
[2021-11-04] MEDS: IV NORMAL SALINE 1000ML BAG 1,000 ML IV SCH (20:30)
[2021-11-05] MEDS: ONDANSETRON PF 4 MG/2 ML VIAL. IVP PRN ×2 (01:10→09:13)
[2021-11-05] MEDS: fentaNYL PF VIAL 100 MCG/2 ML VIAL IVP PRN (01:11)
[2021-11-05 07:00] VITALS: BP 144/64
[2021-11-05] MEDS: MORPHINE SULFATE 2 MG/ML INJ. IVP PRN (09:13)
--- NOTE | 2021-11-05 09:47 | PDOC ---
PULMONARY PROGRESS NOTES DATE: 11/05/21 TIME: 09:43 Subjective Patient remains very weak and lethargic. Currently on nasal cannula. Vitals Vital Signs Date Time Temp Pulse Resp B/P (MAP) Pulse Ox O2 Delivery O2 Flow Rate FiO2 11/05/21 09:13 16 98 Nasal Cannula 2.0 11/04/21 19:00 97.7 107 123/55 (77) 97.7 ROS: No Chest Pain, No Abdominal Pain, No Increase Cough General: No acute distress, Lethargic Lungs: Clear Abdomen: Soft, Other (Tender) Extremities: Other (Trace pitting edema) Skin: Warm, Dry Medications Active Scripts Medications Dose Route/Sig Max Daily Dose Days Date Category Dose Instructions Ondansetron Odt (Ondansetron) 4 Mg Tab.rapdis 1 Tab PO PRN Q6-8HRS 10/14/21 Rx Dicyclomine Hcl 10 Mg Capsule 10 Mg PO PRN QID PRN 10/14/21 Rx Stool Softener (Docusate Sodium) 50 Mg Capsule 1 Cap PO DAILY PRN 30 10/04/21 Reported Tylenol (Acetaminophen) 325 Mg Tablet 1-2 Tab PO HS 10/04/21 Reported Perphen-Amitrip 2 Mg-10 Mg Tab (Perphenazine/Amitriptyline Hcl) 1 Each Tablet 1 Tab PO QHS 10/04/21 Reported Methotrexate (Methotrexate Sodium) 2.5 Mg Tablet 10 Tab PO Tuesday10/04/21 Reported Folic Acid 0.8 Mg Capsule 1 Cap PO DAILY 30 10/04/21 Reported Vitamin D3 (Vitamin D) 25 Mcg Tablet 25 Mcg PO DAILY 10/04/21 Reported 1,000 UNITS = 25 MCG Amlodipine Besylate 2.5 Mg Tablet 2.5 Mg PO DAILY 02/07/19 Reported Vit C-Quyen Hips 500 mg Chew Tb (Ascorbic Acid/Ascorbate Sodium) 500 Mg Tab.chew 500 Mg PO DAILY 02/07/19 Reported Probiotic Acidophilus (Lactobacillus Acidophilus) 1 Each Tablet 1 Each PO DAILY 02/07/19 Reported Metoprolol Tartrate 50 Mg Tablet 50 Mg PO BID 02/07/19 Reported Omeprazole 20 Mg Tablet.dr 20 Mg PO DAILY 02/07/19 Reported Multivitamins (Multivitamin) 1 Each Tablet 1 Tab PO DAILY 12/20/17 Reported Impression . 1. Acute hypoxic respiratory failure, likely secondary to bilateral pleural effusions and abdominal process. Status post thoracentesis 10/27/2021 with 700 cc of fluid removal. --- 2. The patient with abnormal CT chest and abdomen and pelvis. She has multiple hypodense lesions in the liver. She comes in with small-bowel obstruction. Peritoneal carcinomatosis is the concern. There is abnormal right upper lobe parenchymal density 3.1 cm with some calcification. This was also present in imaging study from 2018 and is likely benign. She did have a liver biopsy and I have not seen the outpatient results yet. 3. Small-bowel obstruction and liver lesions. Status post expiratory laparotomy 10/27/2021 with omental biopsy 4. Forty-five years of tobaccoism. Likely underlying chronic obstructive pulmonary disease. 5. Bilateral pleural effusions seen on the CT chest, more on the right than on the left, likely secondary to low oncotic pressure. Cannot exclude malignant effusion. 6. Severe hypoalbuminemia contributing to low oncotic pressure and pleural effusions. Plan . Continue supplemental oxygen to keep oxygen saturations greater than 92%, wean as tolerated Status post right-sided thoracentesis 10/28/2021 with 700 cc fluid removed, follow fluid analysis--negative. Repeat chest x-ray shows some reactive accumulation of right lower lobe effusion. There is also a small effusion on the left base as well. Will monitor closely for now. Nebs as needed Follow surgery recommendations, status post exploratory laparotomy with omental biopsy follow-up pathology final liver biopsy results--(pathology negative for neoplasm) I-S at bedside Continue TPN for nutritional support PT/OT, out of bed as tolerated DVT/GI prophylaxis Discussed with RN and patient's ZUNILDA RANGEL MD Nov 05, 2021 09:47
--- NOTE | 2021-11-05 10:13 | NUR ---
SS following up with discharge planning. SS reviewed pt chart and discussed with pt RN. Pt is currently requiring oxygen at two liters nasal canula. DNR. Comfort measures only. GIP contract for [facility], ; fax [phone], signed. [facility] coming to hospital today to evaluate and admit pt for hospice. [facility] notified. SS will continue to follow for discharge planning.
--- NOTE | 2021-11-05 10:24 | PDOC ---
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 Most likely this is upper GI tract or pancreaticobiliary origin SBO - s/p ex-lap on 10/27/2021 Right pleural effusion - s/p thoracentesis of 800 cc on 10/27/2021 Atrial fibrillation with RVR - cardiology was following, on comfort measures now Status post liver biopsy Peritoneal seeding cancer Nausea vomiting Anxiety, anemia, diverticulitis, hypertension, renal failure, UTI, mitral valve prolapse, cataracts, colostomy, hysterectomy, previous tobacco abuse. FEN - NPO on TPN PPX - PPI, heparin CODE - DNR/DNI Dispo - inpatient hospice referral, comfort care History of Present Illness History of Present Illness 11/05: Seen bedside. He is more tired very shallow rapid respirations. Prefers fentanyl to morphine had vomiting after morphine dosing. Abdominal wound dehiscing more with some feculent discharge. Remains in atrial fibrillation with irregular rate on the auscultation today. In discussion for inpatient hospice which is appropriate given her quick decline 11/04: Per patient preference she has on comfort measures awaiting inpatient hospice evaluation. Remains in A. fib. She is very sleepy. Refusing to have additional morphine despite her respirations over 20. She just wants to sleep. She does not want to express any complaints, and is asking for him to be held. I have readjusted her bed.. 11/03: Contrast injected through gastrostomy tube appears to be intraluminal. Having some discomfort in her abdomen. Good seal on her G-tube today. Overall very weak still requiring TPN limited bowel function passing a little bit of flatus. Wound care to see for consideration of further drain placement abdominal wall wound. 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 Most likely this is upper GI tract or pancreaticobiliary origin. After discussing the results with patient and her sister bedside they have requested comfort care and hospice referral. Given her functional status and malnutrition inability to take p.o. inpatient hospice referral would be appro priate 11/02: Postop day #5 now with gastrostomy tube leaking and some surgical site saturation. Tolerated 1 unit PRBC well in ED repeat hemogram. She still passing flatus. Very weak. Shortness of breath stable. 3: POD #5 had her gastrostomy tube disconnect accidentally, spilling gastric contents onto herself. SOB stable. Had a small BM overnight. No appetite as of yet. 3: POD #4 shortness of breath stable. Having some more nausea today no vomiting. She feels her stomach gurgling. No bowel movement. Hb dropped to 7.2, K improved from 5.6 down to 5 CR stable at 1.5. Still on TPN. 10/30: Postop day 3 shortness of breath stable no vomiting. No bowel movement as of yet. Significant gastrostomy tube output to drain. Mood is depressed today. 10/29: Seen postop day 2. NG tube pulled per surgery gastrostomy tube to suction. No bowel activity. Labs relatively stable will check hemogram and labs given the morning. She has had some nausea and pain. Long discussion with family and patient about goals of care if pathology comes back with suspected peritoneal carcinomatosis. And they would prefer inpatient hospice care if that is the case. They would like time which is appropriate given her recent surgery. 10/28: Seen postop day 1. Shortness of breath is improved. Still with significant NG tube output. Pain is reasonably controlled. Based on the findings I have discussed potential positive care hospice on discharge with family. 10/27: Seen bedside. More dyspneic. No CP. Abdominal pain is 4-10. NG tube suction. To IR for 800cc drain right pleural effusion Consult pulmonology. To OR for omental biopsy lap lysis of lesions and gastrostomy tube 10/26: Patient seen and examined. PICC line and TPN 10/25: Patient seen and examined. She is alert and oriented. Still has NG to suction. Still awaiting pathology report. 10/24: Patient seen and examined. She is resting with no apparent distress. Pathology results still pending 10/23: Patient seen and examined She is on D5 half-normal Chart reviewed Discussed with RN Discussed with case management I spoke with Dr. Banegas he is working on getting the pathology report done soon 10/22/2021 Patient seen and examined Discussed with RN Chart reviewed Discussed with case management I called oncology The plan is to get a liver biopsy today We suspect the elevated CA 25 level may be due to peritoneal cancer versus gastric cancer versus ovarian cancer (she has had her ovaries removed about 4 years ago however oncology explained she could still have ovarian CA) 10/21/2021 Patient seen and examined She still feels better with her NG in place CA-125 level is elevated to 582 Discussed with case management Discussed with RN 10/20/2021 Patient seen and examined We had to place an NG She states she feels better with the NG to suction Discussed with RN Chart reviewed Vitals/I&O Vitals/I&O: Vital Signs Date Time Temp Pulse Resp B/P (MAP) Pulse Ox O2 Delivery O2 Flow Rate FiO2 11/05/21 09:13 16 98 Nasal Cannula 2.0 11/04/21 19:00 97.7 107 123/55 (77) 97.7 I & O 11/04/21 11/04/21 11/05/21 15:00 23:00 07:00 Intake Total 0 ml 30 ml 0 ml Output Total 375 ml 150 ml Balance 0 ml -345 ml -150 ml Physical Exam General: Alert, Oriented X3, Cooperative, mild distress Heart: Regular rate Lungs: Clear Abdomen: Soft, No tenderness Extremities: No cyanosis, No edema Skin: No breakdown, No significant lesion Assessment and Plan Assessmemt and Plan Problems Medical Problems: (1) Acute on chronic renal insufficiency Status: Acute (2) Ascites Status: Acute (3) Chronic diarrhea Status: Acute (4) Chronic vomiting Status: Acute (5) Partial small bowel obstruction Status: Acute Comment Review of Relevant I have reviewed the following items mariusz (where applicable) has been applied. Medications: Current Medications Medications (Trade) Dose Ordered Sig/Ella Route PRN Reason Start Time Stop Time Status Last Admin Dose Admin Fentanyl Citrate (Fentanyl 2ml Vial) 25 mcg PRN Q3HRS PRN IVP SEVERE PAIN 7-10 11/04/21 15:00 11/05/21 01:11 Justifications for Admission Other Justification YUKO CARBALLO MD Nov 05, 2021 10:24
--- NOTE | 2021-11-05 13:45 | PDOC3 ---
Discharge Summary Visit Information Date of Admission: Oct 19, 2021 Date of Discharge: Nov 05, 2021 Admitting Diagnosis: Small bowel obstruction Final Diagnosis Problems Medical Problems: (1) Acute on chronic renal insufficiency Status: Acute (2) Ascites Status: Acute (3) Chronic diarrhea Status: Acute (4) Chronic vomiting Status: Acute (5) Partial small bowel obstruction Status: Acute Brief Hospital Course Allergies Allergies Coded Allergies Type Severity Reaction Last Updated Verified adhesive Allergy Intermediate Rash 10/19/21 Yes Vital Signs Vital Signs Date Time Temp Pulse Resp B/P (MAP) Pulse Ox O2 Delivery O2 Flow Rate FiO2 11/05/21 09:54 16 98 Nasal Cannula 2.0 11/05/21 07:00 98.1 113 144/64 (90) 98.1 Brief Hospital Course Ms Harris Mednosa) is an 81yo female with PMHx diverticulitis status post partial colectomy who was admitted to [facility] on 10/19/21 for a bdominal pain. On CT scan found with small bowel obstruction as well as hypodense lesions identified in the liver with the largest measuring 2.8 cm and the left lobe of the liver probably metastasis. CT also showed moderate LAD pleural effusion and small left pleural effusion. Diffuse infiltration of the mesentery and peritoneum suspected for peritoneal carcinomatosis was noted. Renal cyst was noted. Consults by gastroenterology general surgery and hematology oncology. She had a complicated hospital stay where she underwent liver biopsy which initially was negative for malignancy went into atrial fibrillation with RVR was seen by cardiology and rate controlled. She had respiratory distress and underwent a thoracentesis on 10/27/2021 and consult from pulmonology. Ultimately she underwent an exploratory laparoscopy on 10/27/2021 and upon opening was noted with disseminated peritoneal carcinomatosis which was biopsied twice and repeat liver biopsy was obtained. Biopsy results returned with moderately differentiated adenocarcinoma with markers suspicious for pancreatic origin possibly pulmonary or gastric origin. She continued to decline while recovering from surgery her wound dehisced and after discussion with her family and patient about her diagnosis and lack of treatment options given the extent of her disease she and her family opted for hospice care. Given her wound dehiscence and lack of ability to take p.o. due to nausea and vomiting she was referred for inpatient hospice admission. 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 Most likely this is upper GI tract or pancreaticobiliary origin SBO - s/p ex-lap on 10/27/2021 Right pleural effusion - s/p thoracentesis of 800 cc on 10/27/2021 Atrial fibrillation with RVR - cardiology was following, on comfort measures now Status post liver biopsy Peritoneal seeding cancer Nausea vomiting Anxiety, anemia, diverticulitis, hypertension, renal failure, UTI, mitral valve prolapse, cataracts, colostomy, hysterectomy, previous tobacco abuse. Greater than 30 minutes spent on discharge to inpatient hospice Consults: Gastroenterology, general surgery, hematology oncology, cardiology, pulmonology, gynecology, nephrology Hospital course: 11/05: Seen bedside. He is more tired very shallow rapid respirations. Prefers fentanyl to morphine had vomiting after morphine dosing. Abdominal wound dehiscing more with some feculent discharge. Remains in atrial fibrillation with irregular rate on the auscultation today. In discussion for inpatient hospice which is appropriate given her quick decline 11/04: Per patient preference she has on comfort measures awaiting inpatient hospice evaluation. Remains in A. fib. She is very sleepy. Refusing to have additional morphine despite her respirations over 20. She just wants to sleep. She does not want to express any complaints, and is asking for him to be held. I have readjusted her bed.. 11/03: Contrast injected through gastrostomy tube appears to be intraluminal. Having some discomfort in her abdomen. Good seal on her G-tube today. Overall very weak still requiring TPN limited bowel function passing a little bit of flatus. Wound care to see for consideration of further drain placement abdominal wall wound. 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 Most likely this is upper GI tract or pancreaticobiliary origin. After discussing the results with patient and her sister bedside they have requested comfort care and hospice referral. Given her functional status and malnutrition inability to take p.o. inpatient hospice referral would be appropriate 11/02: Postop day #5 now with gastrostomy tube leaking and some surgical site saturation. Tolerated 1 unit PRBC well in ED repeat hemogram. She still passing flatus. Very weak. Shortness of breath stable. 3: POD #5 had her gastrostomy tube disconnect accidentally, spilling gastric contents onto herself. SOB stable. Had a small BM overnight. No appetite as of yet. 3: POD #4 shortness of breath stable. Having some more nausea today no vomiting. She feels her stomach gurgling. No bowel movement. Hb dropped to 7.2, K improved from 5.6 down to 5 CR stable at 1.5. Still on TPN. 10/30: Postop day 3 shortness of breath stable no vomiting. No bowel movement as of yet. Significant gastrostomy tube output to drain. Mood is depressed today. 10/29: Seen postop day 2. NG tube pulled per surgery gastrostomy tube to suction. No bowel activity. Labs relatively stable will check hemogram and labs given the morning. She has had some nausea and pain. Long discussion with family and patient about goals of care if pathology comes back with suspected peritoneal carcinomatosis. And they would prefer inpatient hospice care if that is the case. They would like time which is appropriate given her recent surgery. 10/28: Seen postop day 1. Shortness of breath is improved. Still with significant NG tube output. Pain is reasonably controlled. Based on the findings I have discussed potential positive care hospice on discharge with family. 10/27: Seen bedside. More dyspneic. No CP. Abdominal pain is 4-10. NG tube suction. To IR for 800cc drain right pleural effusion Consult pulmonology. To OR for omental biopsy lap lysis of lesions and gastrostomy tube 10/26: Patient seen and examined. PICC line and TPN 10/25: Patient seen and examined. She is alert and oriented. Still has NG to suction. Still awaiting pathology report. 10/24: Patient seen and examined. She is resting with no apparent distress. Pathology results still pending 10/23: Patient seen and examined She is on D5 half-normal Chart reviewed Discussed with RN Discussed with case management I spoke with Dr. Banegas he is working on getting the pathology report done soon 10/22/2021 Patient seen and examined Discussed with RN Chart reviewed Discussed with case management I called oncology The plan is to get a liver biopsy today We suspect the elevated CA 25 level may be due to peritoneal cancer versus gastric cancer versus ovarian cancer (she has had her ovaries removed about 4 years ago however oncology explained she could still have ovarian CA) 10/21/2021 Patient seen and examined She still feels better with her NG in place CA-125 level is elevated to 582 Discussed with case management Discussed with RN 10/20/2021 Patient seen and examined We had to place an NG She states she feels better with the NG to suction Discussed with RN Chart reviewed Discharge Information Condition at Discharge: Comment Disposition/Orders: Other (Inpatient hospice) Scheduled Acetaminophen (Tylenol) 325 Mg Tablet, 1-2 TAB PO HS for pain, #60 Ref 2 (Reported) Entered as Reported by: DARI WOLFF on 10/04/21 0516 Ondansetron (Ondansetron Odt) 4 Mg Tab.rapdis, 1 TAB PO PRN Q6-8HRS for nausea, #30 Prescribed by: DEEPTHI VALDEZ on 10/14/21 1029 Scheduled PRN Docusate Sodium (Stool Softener) 50 Mg Capsule, 1 CAP PO DAILY PRN for CONSTIPATION for 30 Days, #30 Ref 0 (Reported) Entered as Reported by: DARI WOLFF on 10/04/21 0516 Discontinued Medications Amlodipine Besylate (Amlodipine Besylate) 2.5 Mg Tablet, 2.5 MG PO DAILY for BLOOD PRESSURE, (Reported) Entered as Reported by: RUDY NAJERA on 02/07/19 1335 Ascorbic Acid/Ascorbate Sodium (Vit C-Quyen Hips 500 mg Chew Tb) 500 Mg Tab.chew, 500 MG PO DAILY for VIT, (Reported) Entered as Reported by: RUDY NAJERA on 02/07/19 1335 Cholecalciferol (Vitamin D3) (Vitamin D3 ) 25 Mcg Tablet, 25 MCG PO DAILY for SUPPLEMENT, (Reported) 1,000 UNITS = 25 MCG Entered as Reported by: DARI WOLFF on 10/04/21 0516 Dicyclomine Hcl (Dicyclomine Hcl) 10 Mg Capsule, 10 MG PO PRN QID PRN for ABDOMINAL CRAMPS, #30 Prescribed by: DEEPTHI VALDEZ on 10/14/21 1029 Folic Acid (Folic Acid) 0.8 Mg Capsule, 1 CAP PO DAILY for supplelmelnt for 30 Days, #30 Ref 0 (Reported) Entered as Reported by: DARI WOLFF on 10/04/21 0516 Lactobacillus Acidophilus (Probiotic Acidophilus) 1 Each Tablet, 1 EACH PO DAILY for DIGESTIVE, (Reported) Entered as Reported by: RUDY NAJERA on 02/07/19 1335 Methotrexate Sodium (Methotrexate) 2.5 Mg Tablet, 10 TAB PO tuesday for rheumatoid arthritis, #32 Ref 2 (Reported) Entered as Reported by: DARI WOLFF on 10/04/21 0516 Metoprolol Tartrate (Metoprolol Tartrate) 50 Mg Tablet, 50 MG PO BID for FOR HYPERTENSION, #60 Ref 0 (Reported) Entered as Reported by: RDUY NAJERA on 02/07/19 1335 Multivitamin (Multivitamins) 1 Each Tablet, 1 TAB PO DAILY, #30 Ref 2 (Reported) Entered as Reported by: KINA HERNANDEZ on 12/20/17 0259 Omeprazole (Omeprazole) 20 Mg Tablet.dr, 20 MG PO DAILY for REFLUX, (Reported) Entered as Reported by: RUDY NAJERA on 02/07/19 1335 Perphenazine/Amitriptyline Hcl (Perphen-Amitrip 2 Mg-10 Mg Tab) 1 Each Tablet, 1 TAB PO QHS for MOOD STABILIZER, (Reported) Entered as Reported by: DARI WOLFF on 10/04/21 0516 Justicifation of Admission Dx: Justifications for Admission: Justification of Admission Dx: Yes YUKO CARBALLO MD Nov 05, 2021 13:45
== END 2021-11-05 14:39 | disposition hospice, home (50) | DRG 853 ==
LOC: ER 09:14 → 6 SOUTH 13:30
PROVIDERS: ADMIT Internal Medicine; ATTEND Internal Medicine
PROC: 0DH63UZ Insertion of Feeding Device into Stomach, Percutaneous Approach (ICD-10-PCS; 2021-10-19)
PROC: 0FB00ZX Excision of Liver, Open Approach, Diagnostic (ICD-10-PCS; principal; 2021-10-22)
PROC: 0DBU3ZX Excision of Omentum, Percutaneous Approach, Diagnostic (ICD-10-PCS; 2021-10-22)
PROC: 0D9670Z Drainage of Stomach with Drainage Device, Via Natural or Artificial Opening (ICD-10-PCS; 2021-10-27)
PROC: 0W993ZZ Drainage of Right Pleural Cavity, Percutaneous Approach (ICD-10-PCS; 2021-10-27)
PROC: 30233N1 Transfusion of Nonautologous Red Blood Cells into Peripheral Vein, Percutaneous Approach (ICD-10-PCS; 2021-11-01)
DX: A41.9 Sepsis, unspecified organism (principal); N17.0 Acute kidney failure with tubular necrosis; J96.01 Acute respiratory failure with hypoxia; N39.0 Urinary tract infection, site not specified; E87.0 Hyperosmolality and hypernatremia; I50.32 Chronic diastolic (congestive) heart failure; K56.600 Partial intestinal obstruction, unspecified as to cause; K57.80 Diverticulitis of intestine, part unspecified, with perforation and abscess without bleeding; C79.9 Secondary malignant neoplasm of unspecified site; D64.9 Anemia, unspecified; D75.839 Thrombocytosis, unspecified; E78.5 Hyperlipidemia, unspecified; E86.0 Dehydration; E87.5 Hyperkalemia; E88.09 Other disorders of plasma-protein metabolism, not elsewhere classified; F17.200 Nicotine dependence, unspecified, uncomplicated; F41.9 Anxiety disorder, unspecified; H26.9 Unspecified cataract; I34.1 Nonrheumatic mitral (valve) prolapse; I48.0 Paroxysmal atrial fibrillation; I73.9 Peripheral vascular disease, unspecified; J43.9 Emphysema, unspecified; K21.9 Gastro-esophageal reflux disease without esophagitis; K52.9 Noninfective gastroenteritis and colitis, unspecified; M06.9 Rheumatoid arthritis, unspecified; M85.80 Other specified disorders of bone density and structure, unspecified site; N18.9 Chronic kidney disease, unspecified; Z43.3 Encounter for attention to colostomy; M19.90 Unspecified osteoarthritis, unspecified site; M54.50 Low back pain, unspecified; R79.89 Other specified abnormal findings of blood chemistry; R97.1 Elevated cancer antigen 125 [CA 125]; N18.30 Chronic kidney disease, stage 3 unspecified; N28.1 Cyst of kidney, acquired; Z51.5 Encounter for palliative care; Z66 Do not resuscitate; Z79.899 Other long term (current) drug therapy; Z83.3 Family history of diabetes mellitus; Z85.43 Personal history of malignant neoplasm of ovary; Z86.718 Personal history of other venous thrombosis and embolism; Z90.49 Acquired absence of other specified parts of digestive tract; Z90.711 Acquired absence of uterus with remaining cervical stump; Z88.8 Allergy status to other drugs, medicaments and biological substances; Z78.0 Asymptomatic menopausal state; Z20.822 Contact with and (suspected) exposure to COVID-19
CPT/HCPCS: 32555; 36415; 36430; 36569; 47000; 71045; 71250; 74018; 74021; 74022; 74176; 74250; 77012; 80048; 80053; 81001; 82040; 82378; 82607; 82962; 83540; 83550; 83605; 83615; 83690; 83735; 83880; 84100; 84157; 84478; 84484; 85025; 85027; 85610; 85730; 86301; 86304; 86850; 86900; 86901; 86920; 87040; 87075; 87426; 88112; 88305; 88307; 88313; 88341; 88342; 93005; 94640; 94760; 96361; 96365; 96375; 99152; A4222; A4223; A4314; A4930; A6253; A6402; C9113; J0694; J0780; J1100; J1160; J1815; J2250; J2270; J2370; J2405; J2543; J2704; J2710; J2997; J3010; J3475; J3490; J7030; J7120; J7121; P9016; P9045; Q9967; 99285-25; G0378; J7626

== ENCOUNTER 2021-11-05 14:48 | Inpatient (IN) | payer OTHER ==
[~2021-11-05] VITALS: Ht 165.1 cm; Wt 88.6 kg
[2021-11-05] MEDS ORDERED: fentaNYL PF VIAL 100 MCG/2 ML VIAL IVP PRN (15:15)
--- NOTE | 2021-11-05 15:29 | NUR ---
Patient transferred to in patient hospice with [facility]. Family present during hospice admission. Comfort measures
[2021-11-05] MEDS: ONDANSETRON PF 4 MG/2 ML VIAL. IVP PRN ×2 (16:36→22:53)
[2021-11-05] MEDS: MORPHINE SULFATE 2 MG/ML INJ. IVP PRN ×2 (16:38→22:53)
[2021-11-05 19:31] VITALS: BP 123/56
[2021-11-06] MEDS: ONDANSETRON PF 4 MG/2 ML VIAL. IVP PRN ×2 (05:06→11:29)
[2021-11-06 07:00] VITALS: BP 123/56
[2021-11-06] MEDS: MORPHINE SULFATE 2 MG/ML INJ. IVP PRN (07:02)
--- NOTE | 2021-11-06 07:06 | PDOC1 ---
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 On CT scan found with small bowel obstruction as well as hypodense lesions identified in the liver with the largest measuring 2.8 cm and the left lobe of the liver probably metastasis. CT also showed moderate LAD pleural effusion and small left pleural effusion. Diffuse infiltration of the mesentery and peritoneum suspected for peritoneal carcinomatosis was noted. Renal cyst was noted. Consults by gastroenterology general surgery and hematology oncology. She had a complicated hospital stay where she underwent liver biopsy which initially was negative for malignancy went into atrial fibrillation with RVR was seen by cardiology and rate controlled. She had respiratory distress and underwent a thoracentesis on 10/27/2021 and consult from pulmonology. Ultimately she underwent an exploratory laparoscopy on 10/27/2021 and upon opening was noted with disseminated peritoneal carcinomatosis which was biopsied twice and repeat liver biopsy was obtained. Biopsy results returned with moderately differentiated adenocarcinoma with markers suspicious for pancreatic origin possibly pulmonary or gastric origin. She continued to decline while recovering from surgery her wound dehisced and after discussion with her family and patient about her diagnosis and lack of treatment options given the extent of her disease she and her family opted for hospice care. Given her wound dehiscence and lack of ability to take p.o. due to nausea and vomiting she was referred for inpatient hospice admission. Seen bedside after overnight admit her respirations are 22/min rapid shallow and she is having more pain at her surgical site today. Initially morphine was given which caused her more nausea and a headache. Alternatively fentanyl has helped with her pain and eased her respiratory distress. Past Medical History Cardiovascular: HTN, Hyperlipidemia, Valve insufficiency, Other Pulmonary: No pertinent hx GI: Diverticulosis, GERD Heme/Onc: No pertinent hx Hepatobiliary: No pertinent hx Psych: Anxiety Rheumatologic: No pertinent hx Infectious disease: No pertinent hx Renal/: Chronic renal insuff Endocrine: Osteopenia Past Surgical History Past Surgical History: Appendectomy, Hysterectomy, Colon Resection, Other Family History Family History Reviewed Family History: No Significant, Other Social History Smoke: Quit ALCOHOL: none Drugs: None Current Medications Current Medications Current Medications Fentanyl Citrate (Fentanyl 2ml Vial) 25 mcg PRN Q3HRS PRN IVP PAIN; Start 11/05/21 at 15:15 Morphine Sulfate (Morphine Sulfate) 2 mg PRN Q2HR PRN IVP PAIN Last administered on 11/06/21at 07:02; Start 11/05/21 at 15:15 Ondansetron HCl (Zofran) 4 mg PRN Q6HRS PRN IVP NAUSEA/VOMITING Last administered on 11/06/21at 05:06; Start 11/05/21 at 15:15 Active Scripts Active Ondansetron Odt (Ondansetron) 4 Mg Tab.rapdis 1 Tab PO PRN Q6-8HRS Reported Stool Softener (Docusate Sodium) 50 Mg Capsule 1 Cap PO DAILY PRN 30 Days Tylenol (Acetaminophen) 325 Mg Tablet 1-2 Tab PO HS Allergies Allergies: Coded Allergies: adhesive (Verified Allergy, Intermediate, Rash, 11/05/21) ROS General: YES: Fatigue, Malaise, Appetite; No: Chills, Night Sweats, Other PSYCHOLOGICAL ROS: No: Anxiety, Behavioral Disorder, Concentration difficultie, Decreased libido, Depression, Disorientation, Hallucinations, Hostility, Irritablity, Memory difficulties, Mood Swings, Obsessive thoughts, Physical abuse, Sexual abuse, Sleep disturbances, Suicidal ideation, Other Eyes: No Blurry vision, No Decreased vision, No Double vision, No Dry eyes, No Excessive tearing, No Eye Pain, No Itchy Eyes, No Loss of vision, No Photophobia, No Scotomata, No Uses contacts, No Uses glasses, No Other HEENT: No: Heacaches, Visual Changes, Hearing change, Nasal congestion, Nasal discharge, Oral lesions, Sinus pain, Sore Throat, Epistaxis, Sneezing, Snoring, Tinnitus, Vertigo, Vocal changes, Other ALLERGY AND IMMUNOLOGY: No: Hives, Insect Bite Sensitivity, Itchy/Watery Eyes, Nasal Congestion, Post Nasal Drip, Seasonal Allergies, Other Hematological and Lymphatic: No: Bleeding Problems, Blood Clots, Blood Transfusions, Brusing, Night Sweats, Pallor, Swollen Lymph Nodes, Other ENDOCRINE: No: Breast Changes, Galactorrhea, Hair Pattern Changes, Hot Flashes, Malaise/lethargy, Mood Swings, Palpitations, Polydipsia/polyuria, Skin Changes, Temperature Intolerance, Unexpected Weight Changes, Other Breast: No New/Changing Breast Lumps, No Nipple changes, No Nipple discharge, No Other Respiratory: YES: Shortness of breath, SOB with excertion; No: Cough, Hemoptysis, Orthopnea, Pleuritic Pain, Sputum Changes, Stridor, Tachypnea, Wheezing, Other Cardiovascular: No Chest Pain, No Palpitations, No Orthopnea, No Paroxysmal Noc. Dyspnea, No Edema, No Lt Headedness, No Other Gastrointestinal: Yes Nausea, Yes Vomiting, Yes Abdominal Pain; No Diarrhea, No Constipation, No Melena, No Hematochezia, No Other Genitourinary: No Dysuria, No Frequency, No Incontinence, No Hematuria, No Retention, No Discharge, No Urgency, No Pain, No Flank Pain, No Other, No , No , No , No , No , No , No Musculoskeletal: No Gait Disturbance, No Joint Pain, No Joint Stiffness, No Joint Swelling, No Muscle Pain, No Muscular Weakness, No Pain In:, No Swelling In:, No Other Neurological: No Behavorial Changes, No Bowel/Bladder ControlChng, No Confusion, No Dizziness, No Gait Disturbance, No Headaches, No Impaired Coord/balance, No Memory Loss, No Numbness/Tingling, No Seizures, No Speech Problems, No Tremors, No Visual Changes, No Weakness, No Other Skin: No Dry Skin, No Eczema, No Hair Changes, No Lumps, No Mole Changes, No Mottling, No Nail Changes, No Pruritus, No Rash, No Skin Lesion Changes, No Other, No Acne Physical Exam General: Alert, Oriented X3, Cooperative, moderate distress HEENT: Atraumatic, PERRLA, EOMI, Mucous membr. moist/pink Lungs: Other (Bibasilar crackles) Heart: irregularly irregular Abdomen: Other (Scattered bowel sounds. Abdominal laparoscopy site with feculent material dehisced wound. Gastrostomy tube in place) Rectal Exam: not examined Extremities: No clubbing, No cyanosis, No edema, Normal pulses, No tenderness/swelling Skin: No rashes, No breakdown, No significant lesion Neuro: Normal speech, Strength at 5/5 X4 ext, Normal tone, Sensation intact, Cranial nerves 3-12 NL, Reflexes 2+ Psych/Mental Status: Mental status NL, Mood NL Vitals Vitals Vital Signs Date Time Temp Pulse Resp B/P (MAP) Pulse Ox O2 Delivery O2 Flow Rate FiO2 11/06/21 07:02 18 95 Nasal Cannula 3.0 11/05/21 19:31 98.8 111 123/56 (78) 98.8 VTE Prophylaxis Ordered VTE Prophylaxis Devices: Yes VTE Pharmacological Prophylaxi: No Assessment/Plan Assessment/Plan Adenocarcinoma - metastatic adenocarcinoma in the liver omentum and left upper quadrant biopsy: possible lung thyroid pancreaticobiliary tract and upper gastrointestinal tract including esophagus stomach and small intestine. Most likely this is upper GI tract or pancreaticobiliary origin SBO - s/p ex-lap on 10/27/2021 Right pleural effusion - s/p thoracentesis of 800 cc on 10/27/2021 Atrial fibrillation with RVR - cardiology was following, on comfort measures now Status post liver biopsy Peritoneal seeding cancer Nausea vomiting Anxiety, anemia, diverticulitis, hypertension, renal failure, UTI, mitral valve prolapse, cataracts, colostomy, hysterectomy, previous tobacco abuse. FEN - NPO, comfort feeding only PPX - q2hr turns CODE - DNR/DNI Dispo - inpatient hospice Justifications for Admission Other Justification YUKO CARBALLO MD Nov 06, 2021 07:06
[2021-11-06] MEDS ORDERED: BISACODYL 10 MG SUPP.RECT. PR PRN (07:15)
[2021-11-06] MEDS ORDERED: LORazepam INTENSOL 2 MG/ML ORAL.CONC SL PRN (07:15)
[2021-11-06] MEDS ORDERED: PROMETHAZINE 25 MG SUPP.RECT. PR PRN (07:15)
[2021-11-06] MEDS ORDERED: ACETAMINOPHEN 650 MG SUPP.RECT. PR PRN (07:15)
[2021-11-06] MEDS ORDERED: NALOXONE 0.4 MG/ML VIAL. IV PRN (10:30)
[2021-11-06] MEDS: IV NORMAL SALINE 1000ML BAG 1,000 ML IV SCH (11:36)
--- NOTE | 2021-11-06 15:01 | NUR ---
Report given to Dora on 4N. Pt transferred from [phone] to [phone].
[2021-11-06] MEDS ORDERED: DICLOFENAC SODIUM 1% TOPICAL GEL 100GM TUBE. TP PRN (16:00)
[2021-11-06 20:00] VITALS: BP 115/49
[2021-11-07] MEDS: ONDANSETRON PF 4 MG/2 ML VIAL. IVP PRN (02:19)
[2021-11-07 07:39] VITALS: BP 126/48
[2021-11-07] MEDS: IV NORMAL SALINE 1000ML BAG 1,000 ML IV SCH (10:30)
[2021-11-07] MEDS: MORPHINE SULFATE 20 MG/ML CONC SOLUTION. SL PRN (15:12)
--- NOTE | 2021-11-07 16:04 | NUR ---
Replace a new Barksdale Catheter per doctor ordered as requested by hospice nurse.
[2021-11-07 19:25] VITALS: BP 124/54
--- NOTE | 2021-11-07 22:48 | PDOC ---
[employer] PROGRESS NOTE Date of Service DOS: DATE: 11/07/21 TIME: 22:47 Chief Complaint Chief Complaint Adenocarcinoma - metastatic adenocarcinoma in the liver omentum and left upper quadrant biopsy: possible lung thyroid pancreaticobiliary tract and upper gastrointestinal tract including esophagus stomach and small intestine. Most likely this is upper GI tract or pancreaticobiliary origin SBO - s/p ex-lap on 10/27/2021 Right pleural effusion - s/p thoracentesis of 800 cc on 10/27/2021 Atrial fibrillation with RVR - cardiology was following, on comfort measures now Status post liver biopsy Peritoneal seeding cancer Nausea vomiting Anxiety, anemia, diverticulitis, hypertension, renal failure, UTI, mitral valve prolapse, cataracts, colostomy, hysterectomy, previous tobacco abuse. FEN - NPO, comfort feeding only PPX - q2hr turns CODE - DNR/DNI Dispo - inpatient hospice History of Present Illness History of Present Illness 11/07 Patient examined. No major clinical changes continue hospice care. Vitals/I&O Vitals/I&O: Vital Signs Date Time Temp Pulse Resp B/P (MAP) Pulse Ox O2 Delivery O2 Flow Rate FiO2 11/07/21 19:25 97.9 97 20 124/54 (77) 96 Nasal Cannula 2.0 97.9 Physical Exam General: Cooperative Heart: Regular rate Lungs: Clear Abdomen: Normal bowel sounds, Other (Scattered bowel sounds. Abdominal laparoscopy site with feculent material dehisced wound. Gastrostomy tube in p lace) Extremities: No clubbing, No cyanosis, No edema, Normal pulses, No tenderness/swelling Skin: No rashes, No breakdown, No significant lesion Comment Review of Relevant I have reviewed the following items mariusz (where applicable) has been applied. Justifications for Admission Other Justification YUKO FOFANA MD Nov 07, 2021 22:48
[2021-11-08 08:00] VITALS: BP 119/49
[2021-11-08] MEDS: IV NORMAL SALINE 1000ML BAG 1,000 ML IV SCH (10:30)
[2021-11-08] MEDS: MORPHINE SULFATE 20 MG/ML CONC SOLUTION. SL PRN (11:49)
[2021-11-08] MEDS ORDERED: IV NORMAL SALINE 1000ML BAG 1,000 ML IV SCH (15:00)
[2021-11-08] MEDS ORDERED: NALOXONE 0.4 MG/ML VIAL. IV PRN (15:00)
--- NOTE | 2021-11-08 15:13 | PDOC ---
[employer] PROGRESS NOTE Date of Service DOS: DATE: 11/08/21 TIME: 15:12 Chief Complaint Chief Complaint Adenocarcinoma - metastatic adenocarcinoma in the liver omentum and left upper quadrant biopsy: possible lung thyroid pancreaticobiliary tract and upper gastrointestinal tract including esophagus stomach and small intestine. Most likely this is upper GI tract or pancreaticobiliary origin SBO - s/p ex-lap on 10/27/2021 Right pleural effusion - s/p thoracentesis of 800 cc on 10/27/2021 Atrial fibrillation with RVR - cardiology was following, on comfort measures now Status post liver biopsy Peritoneal seeding cancer Nausea vomiting Anxiety, anemia, diverticulitis, hypertension, renal failure, UTI, mitral valve prolapse, cataracts, colostomy, hysterectomy, previous tobacco abuse. FEN - NPO, comfort feeding only PPX - q2hr turns CODE - DNR/DNI Dispo - inpatient hospice History of Present Illness History of Present Illness 11/07 Patient examined. No major clinical changes continue hospice care. 12/05: Patient evaluated bedside. She reports continued generalized abdominal pain. Discussed with pharmacy about increasing her basal fentanyl rate on her [employer]. Continue hospice care. Vitals/I&O Vitals/I&O: Vital Signs Date Time Temp Pulse Resp B/P (MAP) Pulse Ox O2 Delivery O2 Flow Rate FiO2 11/08/21 12:50 Nasal Cannula 2.0 11/08/21 08:00 97.7 97 18 119/49 (72) 96 97.7 Physical Exam General: Cooperative Heart: Regular rate Lungs: Clear Abdomen: Normal bowel sounds, Other (Scattered bowel sounds. Abdominal laparoscopy site with feculent material dehisced wound. Gastrostomy tube in place) Extremities: No clubbing, No cyanosis, No edema, Normal pulses, No tenderness/swelling Skin: No rashes, No breakdown, No significant lesion Comment Review of Relevant I have reviewed the following items mariusz (where applicable) has been applied. Justifications for Admission Other Justification JAVIER HERNANDEZ MD Nov 08, 2021 15:13
[2021-11-08] MEDS: ONDANSETRON PF 4 MG/2 ML VIAL. IVP PRN (16:12)
[2021-11-08 21:07] VITALS: BP 127/52
[2021-11-09] MEDS: ONDANSETRON PF 4 MG/2 ML VIAL. IVP PRN ×2 (03:57→21:54)
[2021-11-09 08:41] VITALS: BP 112/49
[2021-11-09] MEDS: IV NORMAL SALINE 1000ML BAG 1,000 ML IV SCH (10:30)
--- NOTE | 2021-11-09 12:20 | PDOC ---
[employer] PROGRESS NOTE Date of Service DOS: DATE: 11/09/21 TIME: 12:19 Chief Complaint Chief Complaint Metastatic adenocarcinoma Patient on hospice care History of Present Illness History of Present Illness 11/09/2021 Patient seen and examined Discussed with RN Chart reviewed Discussed with case management We are continuing hospice care 11/07 Patient examined. No major clinical changes continue hospice care. 12/05: Patient evaluated bedside. She reports continued generalized abdominal pain. Discussed with pharmacy about increasing her basal fentanyl rate on her [employer]. Continue hospice care. Vitals/I&O Vitals/I&O: Vital Signs Date Time Temp Pulse Resp B/P (MAP) Pulse Ox O2 Delivery O2 Flow Rate FiO2 11/09/21 08:41 97.7 68 18 112/49 (70) 96 Nasal Cannula 2.0 97.7 Physical Exam General: Cooperative Heart: Regular rate Lungs: Clear Abdomen: Normal bowel sounds, Other (Scattered bowel sounds. Abdominal laparoscopy site with feculent material dehisced wound. Gastrostomy tube in place) Extremities: No clubbing, No cyanosis, No edema, Normal pulses, No tenderness/swelling Skin: No rashes, No breakdown, No significant lesion Assessment and Plan Assessmemt and Plan Metastatic adenocarcinoma Plan Comfort care/inpatient hospice care Comment Review of Relevant I have reviewed the following items mariusz (where applicable) has been applied. Medications: Current Medications Medications (Trade) Dose Ordered Sig/Ella Route PRN Reason Start Time Stop Time Status Last Admin Dose Admin Fentanyl Citrate 30 ml @ 0 mls/hr CONT PRN PRN IV PER PROTOCOL 11/08/21 15:00 11/09/21 03:21 Justifications for Admission Other Justification ANDER ZIMMERMAN III DO Nov 09, 2021 12:20
[2021-11-09 20:56] VITALS: BP 111/51
[2021-11-10 08:00] VITALS: BP 119/49
--- NOTE | 2021-11-10 12:48 | PDOC ---
[employer] PROGRESS NOTE Date of Service DOS: DATE: 11/10/21 TIME: 12:47 Chief Complaint Chief Complaint Metastatic adenocarcinoma Patient on hospice care History of Present Illness History of Present Illness 11/10 Patient evaluated examined. Chart reviewed. Continue hospice care. Pleasure feeds to continue. Discussed with bedside RN 11/09/2021 Patient seen and examined Discussed with RN Chart reviewed Discussed with case management We are continuing hospice care 11/07 Patient examined. No major clinical changes continue hospice care. 12/05: Patient evaluated bedside. She reports continued generalized abdominal pain. Discussed with pharmacy about increasing her basal fentanyl rate on her [employer] SPR[employer]. Continue hospice care. Vitals/I&O Vitals/I&O: Vital Signs Date Time Temp Pulse Resp B/P (MAP) Pulse Ox O2 Delivery O2 Flow Rate FiO2 11/10/21 11:29 Nasal Cannula 11/10/21 08:00 59 16 119/49 (72) 95 2.0 11/09/21 20:56 98.0 98.0 Physical Exam General: Cooperative Heart: Regular rate Lungs: Clear Abdomen: Normal bowel sounds, Other (Scattered bowel sounds. Abdominal laparoscopy site with feculent material dehisced wound. Gastrostomy tube in place) Extremities: No clubbing, No cyanosis, No edema, Normal pulses, No tenderne ss/swelling Skin: No rashes, No breakdown, No significant lesion Comment Review of Relevant I have reviewed the following items mariusz (where applicable) has been applied. Justifications for Admission Other Justification YUKO FOFANA MD Nov 10, 2021 12:48
[2021-11-10] MEDS: IV NORMAL SALINE 1000ML BAG 1,000 ML IV SCH (13:22)
[2021-11-10 19:00] VITALS: BP 104/50
[2021-11-11 07:00] VITALS: BP 106/46
[2021-11-11] MEDS: ONDANSETRON PF 4 MG/2 ML VIAL. IVP PRN (08:09)
[2021-11-11] MEDS ORDERED: LORazepam INTENSOL 2 MG/ML ORAL.CONC SL PRN (08:14)
[2021-11-11] MEDS: LORazepam INTENSOL 2 MG/ML ORAL.CONC SL PRN ×2 (08:43→15:42)
[2021-11-11] MEDS ORDERED: METOCLOPRAMIDE HCL 10 MG/2 ML VIAL. IVP PRN (09:45)
[2021-11-11] MEDS: IV NORMAL SALINE 1000ML BAG 1,000 ML IV SCH (12:22)
[2021-11-11] MEDS: ATROPINE 1% OPHTH SOLUTION 5ML BOTTLE. SL PRN ×3 (13:51→18:16)
[2021-11-11 19:00] VITALS: BP 64/42
--- NOTE | 2021-11-11 22:03 | PDOC ---
[employer] PROGRESS NOTE Date of Service DOS: DATE: 11/11/21 TIME: 22:03 Chief Complaint Chief Complaint Metastatic adenocarcinoma Patient on hospice care History of Present Illness History of Present Illness 11/11 no major changes. continue hospice care 11/10 Patient evaluated examined. Chart reviewed. Continue hospice care. Pleasure feeds to continue. Discussed with bedside RN 11/09/2021 Patient seen and examined Discussed with RN Chart reviewed Discussed with case management We are continuing hospice care 11/07 Patient examined. No major clinical changes continue hospice care. 12/05: Patient evaluated bedside. She reports continued generalized abdominal pain. 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 Continue hospice care. Vitals/I&O Vitals/I&O: Vital Signs Date Time Temp Pulse Resp B/P (MAP) Pulse Ox O2 Delivery O2 Flow Rate FiO2 11/11/21 19:00 98.2 135 18 64/42 (49) 90 Nasal Cannula 2.0 98.2 Physical Exam General: Cooperative Heart: Regular rate Lungs: Clear Abdomen: Normal bowel sounds, Other (Scattered bowel sounds. Abdominal laparoscopy site with feculent material dehisced wound. Gastrostomy tube in place) Extremities: No clubbing, No cyanosis, No edema, Normal pulses, No tendernes s/swelling Skin: No rashes, No breakdown, No significant lesion Comment Review of Relevant I have reviewed the following items mariusz (where applicable) has been applied. Medications: Current Medications Medications (Trade) Dose Ordered Sig/Ella Route PRN Reason Start Time Stop Time Status Last Admin Dose Admin Lorazepam (Ativan Intensol) 2 mg PRN Q6HRS PRN SL ANXIETY / AGITATION 11/11/21 08:20 11/11/21 15:42 Fentanyl Citrate 30 ml @ 0 mls/hr CONT PRN PRN IV PER PROTOCOL 11/11/21 09:45 11/11/21 16:15 Lorazepam (Ativan Inj) 2 mg PRN Q2HRS PRN IVP ANXIETY / AGITATION 11/11/21 09:45 11/11/21 18:16 Metoclopramide HCl (Reglan Vial) 10 mg PRN Q4HRS PRN IVP NAUSEA/VOMITING 11/11/21 09:45 11/11/21 09:57 Justifications for Admission Other Justification YUKO FOFANA MD Nov 11, 2021 22:03
--- NOTE | 2021-11-12 05:29 | NUR ---
0140 11/12/2021 patient , family at bedside ,Dr wilks, [facility] utilities and maintenance supervisor notified, post mortem care done, [place] [facility] at 0233 11/12/2021
== END 2021-11-11 23:50 | DRG 375 ==
LOC: 6 SOUTH 14:48 → 4 NORTH 11-06 14:39
PROVIDERS: ADMIT Internal Medicine; ATTEND Internal Medicine
DX: C78.6 Secondary malignant neoplasm of retroperitoneum and peritoneum (principal); C78.7 Secondary malignant neoplasm of liver and intrahepatic bile duct; D64.9 Anemia, unspecified; E78.5 Hyperlipidemia, unspecified; F41.9 Anxiety disorder, unspecified; I12.9 Hypertensive chronic kidney disease with stage 1 through stage 4 chronic kidney disease, or unspecified chronic kidney disease; I48.91 Unspecified atrial fibrillation; N18.9 Chronic kidney disease, unspecified; Z66 Do not resuscitate; C80.1 Malignant (primary) neoplasm, unspecified; K21.9 Gastro-esophageal reflux disease without esophagitis; K57.90 Diverticulosis of intestine, part unspecified, without perforation or abscess without bleeding; Z51.5 Encounter for palliative care; Z87.891 Personal history of nicotine dependence; Z90.49 Acquired absence of other specified parts of digestive tract; Z90.710 Acquired absence of both cervix and uterus; Z93.3 Colostomy status
CPT/HCPCS: J2060; J2270; J2405; J2765; J3010; J7030; G0378